=== PATIENT | female | born 1945 | race Caucasian/White ===

== ENCOUNTER 2017-10-11 15:23 | Emergency (ER) | payer MEDICARE, MEDICAID, SELFPAY ==
[2017-10-11 15:25] VITALS: BP 171/81; PULSE 91; RESP 24; TEMP 37.1; O2SAT 95; BMI 43.4
--- NOTE | 2017-10-11 15:47 | CT_ITS ---
STUDY: CT ABDOMEN AND PELVIS WITHOUT CONTRAST REASON FOR EXAM: Female, 72 years old. Abdominal pain and diarrhea, history of lymphoma RADIATION DOSAGE (If Supplied By Facility): CTDIvol = ( 23.34 ) mGy, DLP = ( 1102.01 ) mGycm TECHNIQUE: Transaxial images were obtained from the dome of the diaphragm to the symphysis pubis without oral contrast, and without intravenous contrast. Sagittal and coronal images were reconstructed. Individualized dose optimization techniques were used for this CT. COMPARISON: Prior study of October 28, 2014 FINDINGS: The study is technically limited, being performed without oral and intravenous contrast. The visualized lung bases are unremarkable. The heart size is within normal limits. There is a trace pericardial effusion. There is mild thyromegaly. Normal gallbladder and extrahepatic biliary system. There is mild splenomegaly. Normal pancreas. Normal bilateral adrenal glands. Normal right kidney. Normal left kidney. Normal visualized stomach. Normal small intestine. There is mild colonic diverticulosis with no evidence of associated diverticulitis. The appendix is visualized and appears normal. There are calcified plaques of the abdominal aorta. Normal inferior vena cava. There are scattered shoddy retroperitoneal nodes. Normal urinary bladder. The uterus and adnexal structures are unremarkable. There is again demonstrated a thick-walled fat density structure of the anterior right abdominal wall measuring approximately 9.0 x 2.6 x 2.7 cm. Again, this may represent postsurgical change or lipoma. It is stable in the interval. There is a small fat-containing umbilical hernia. There are diffuse degenerative changes of the visualized thoracolumbar spine. CT/Abdomen/Pelvis without Cont IMPRESSION: 1. Trace pericardial effusion. 2. Mild hepatosplenomegaly, similar to the previous study. 3. Scattered shotty retroperitoneal adenopathy, also similar to the previous study. 4. Mild colonic diverticulosis with no evidence of associated diverticulitis. 5. There is again demonstrated a thick wall fat density structure of the anterior right abdominal wall measuring approximately 9.0 x 2.6 x 2.7 cm. This appears similar to the previous study, and again may represent postsurgical change or lipoma. 6. Small fat-containing umbilical hernia. Electronically Signed: Nghia Heard MD at 17:58 EDT , Service support ,
--- NOTE | 2017-10-11 16:09 | ED.VISSUMM ---
- ER Visit Summary Date of Service: 10/11/17 Chief Complaint: Abdominal pain History of Present Illness: The patient is a 72 F with upper abdominal pain, nausea, and diarrhea. Symptoms started a month ago and are getting worse. She is having a hard time because of the symptom severity. She feels dehydrated and shaky. She has a history of gastric ulcers. She denies any history of abdominal surgery. Physical Examination: Afebrile and vital signs unremarkable except blood pressure is 171/81. Patient appears in no acute distress. Skin is normal. Heart regular. Lungs clear. Abdomen diffusely tender in the upper hemiabdomen with light touch. No guarding or rebound. No distention. Test Results: Laboratory studies, urinalysis, and CT pending. Emergency Department Course and Treatment: Patient treated with fluids while awaiting results. White count 11.2. No sign of sepsis. Potassium 3.4 and CO2 34. Alk phos 149. Lipase normal. Urinalysis unremarkable. CT abdomen showed a fat-containing umbilical hernia as well as chronic abdominal wall changes which are likely postoperative or lipoma related. She is a trace pericardial effusion, mild stable hepatomegaly, and diverticulosis without diverticulitis. Patient was reevaluated. No further symptoms. No pain. No further diarrhea. She is not having watery stools which would be more consistent with C. difficile. I am not sure what is causing her symptoms. She appears to be stable. I advised her on diet recommendations and on staying hydrated. She will follow up with her doctor. Return for any new or worsening issues. Treatment Plan: As above Disposition: Discharged Impression: 1. Diarrheal illness This note was generated with [employer] software. It may contain incorrect words, spelling, and punctuation that were not noted in review of the chart prior to signing ED Disposition - Plan for ED Patient: Chief Complaint: Abd Pain Referrals: Zabrina Bain MD [Primary Care Provider] -
[2017-10-11] MEDS: 0.9% Normal Saline 1,000 ML 1000 ML IV (16:22)
[2017-10-11 16:44] LABS: ALB/GLOB Ratio 0.9 RATIO (0.9-2.4); AST(SGOT) 20 U/L (15-37); Alanine Aminotransfer ALT/SGPT 23 U/L (13-56); Albumin, Serum 3.5 g/dL (3.2-5.0); Alkaline Phosphatase 149 U/L (45-117); Anion Gap 5 (5-15); BUN 11 mg/dL (7-18); Chloride 104 mmol/L (98-107); Creatinine, Serum 0.52 mg/dL (0.55-1.02); EST Glomerular Filtration Rate 122 mL/min (>60); Est Glom Filt Rate - Afr Amer 148 mL/min (>60); Estimated Creatinine Clearance 38.94 ml/min; Globulin 3.9 g/dL (2.2-4.2); Glucose 98 mg/dL (74-106); Lipase 149 U/L (73-393); Potassium 3.4 mmol/L (3.5-5.1); Protein, Total 7.4 g/dL (6.4-8.2); Sodium Level 143 mmol/L (136-145)
[2017-10-11 16:46] LABS: Absolute Lymphocyte Count 1.73 X10^3/ul (0.83-4.51); Absolute Neutrophil Count 8.7 X10^3/uL (2.0-7.7); Basophil# 0.02 X10^3/uL; Basophil% 0.2 % (0-1); Eosinophil# 0.14 X10^3/uL; Eosinophils% 1.3 % (0-5); Hematocrit 43.4 % (37-47); Lymphocyte # 1.73 X10^3/ul (4.0); Lymphocyte % 15.5 % (19-41); Mean Corp Hgb Conc 32.3 g/gl (32-36); Mean Corpuscular Hgb 28.7 pg (27.0-32.0); Mean Corpuscular Volume 89.1 fL (81-99); Monocyte# 0.52 X10^3/uL; Monocyte% 4.7 % (0-10); Neutrophil # 8.72 X10^3/uL (2.7-7.7); Neutrophil % 78.1 % (47-70); Platelet Count 219 K/mm3 (150-450); RBC Distribution Width CV 17.1 % (11.6-14.6); RBC Distribution Width SD 55.7 fl (35.1-43.9); Red Blood Count 4.87 M/mm3 (4.2-5.4); White Blood Count 11.2 K/mm3 (4.4-11.0)
[2017-10-11 16:47] LABS: POSITIVE COUNT NO; POSITIVE DIFFERENTIAL NO; POSITIVE MORPHOLOGY NO
[2017-10-11 17:56] LABS: Red Blood Cells-Urine 0 SEEN /hpf (0-5)
[2017-10-11 18:02] LABS: Color, Urine Yellow (Yellow); Glucose, Dipstick Normal (Normal); Ketone-Dipstick Negative (Negative); Leukocyte Esterase-Dipstick 25 /ul (Negative); Nitrite-Dipstick Negative (Negative); Occult Blood-Urine 25 /ul (Negative); Protein-Dipstick 100 mg/dl (Negative); Urine Bilirubin Dipstick Negative (Negative); Urine Clarity Clear (Clear); Urine Urobilinogen Normal (Normal)
[2017-10-11 18:16] LABS: Bacteria 1+ /hpf (None Seen); Mucous, Urine 1+ /hpf (<or=2+); Squamous Epithelial Cells - UA 0-5 SEEN /hpf (5-10); White Blood Cells 0-5 SEEN /hpf (0-5)
[2017-10-11 19:14] VITALS: BP 149/89; PULSE 83; RESP 20; O2SAT 95
--- NOTE | 2017-10-11 19:37 | ED.DEP ---
ED Disposition - Plan for ED Patient: Chief Complaint: Abd Pain Instructions: Treating Diarrhea Referrals: Zabrina Bain MD [Primary Care Provider] -
[2017-10-11 19:56] VITALS: BP 156/75; PULSE 82; RESP 15; O2SAT 96
== END 2017-10-11 19:57 | disposition home or self-care (01) ==
PROVIDERS: Emergency Provider Emergency Medicine; Family Provider Internal Medicine; PCP Internal Medicine
DX: R19.7 Diarrhea, unspecified (principal); I11.0 Hypertensive heart disease with heart failure; I50.9 Heart failure, unspecified; E11.9 Type 2 diabetes mellitus without complications; K21.9 Gastro-esophageal reflux disease without esophagitis; E03.9 Hypothyroidism, unspecified; J30.9 Allergic rhinitis, unspecified; Z79.4 Long term (current) use of insulin; Z79.899 Other long term (current) drug therapy
CPT/HCPCS: 36591; 74176; 80053; 81001; 83690; 85025; 96360; 96361; 99282; J7030; A4216

== ENCOUNTER 2017-11-18 15:37 | Observation (INO) | payer MEDICARE, MEDICAID, SELFPAY ==
[2017-11-18] VITALS (7 sets, daily range): BP systolic 148–167; BP diastolic 71–80; PULSE 69–78; RESP 12–20; TEMP 36.2–36.8; O2SAT 94–100; BMI 42.7; BMI 43.0; BMI 43.1
--- NOTE | 2017-11-18 16:43 | CT_ITS ---
STUDY: CT ABDOMEN AND PELVIS WITHOUT CONTRAST REASON FOR EXAM: Female, 72 years old. Diarrhea. Abdominal pain. History of lymphoma. RADIATION DOSAGE (If Supplied By Facility): CTDIvol = ( 32.95 ) mGy, DLP = ( 1539.22 ) mGycm TECHNIQUE: Transaxial images were obtained from the dome of the diaphragm to the symphysis pubis without oral contrast, and without intravenous contrast. Sagittal and coronal images were reconstructed. Individualized dose optimization techniques were used for this CT. COMPARISON: 10/11/2017. FINDINGS: There are chronic interstitial fibrotic changes of the lung bases. The visualized portions of the heart are within normal limits. There is decreased attenuation of the liver consistent with steatosis. Stable hepatomegaly. Normal gallbladder and extrahepatic biliary system. There is moderate splenomegaly. Normal pancreas. Normal right adrenal gland. Stable mild diffuse enlargement of the left adrenal gland. Normal right kidney. Normal left kidney. No definite renal or ureteral stones are seen. There is no hydronephrosis on either side. Evaluation of the GI tract is limited by absence of oral contrast. Cannot exclude stomach wall thickening. No dilated loops of bowel or evidence for obstruction. Cannot exclude segmental thickening of the ma of the small or large bowel. Cannot exclude enteritis or colitis. Moderate diffuse fecal retention. Diverticulosis without definite diverticulitis. Appendix within normal limits. Normal abdominal aorta. Normal inferior vena cava. There is borderline retroperitoneal lymphadenopathy with enlarged nodes no greater than 10mm in the short axis diameter. Normal urinary bladder. There is atrophy of the uterus. Stable probable lipoma of the right anterior abdominal wall. There are diffuse degenerative changes of the visualized lumbar spine. CT/Abdomen/Pelvis without Cont IMPRESSION: No gross change or definite acute abnormality. Note that evaluation of GI tract is limited without the administration of oral contrast. Electronically Signed: Mason Beyer MD at 18:27 EDT , Service support ,
[2017-11-18 17:52] LABS: Absolute Lymphocyte Count 1.59 X10^3/ul (0.83-4.51); Absolute Neutrophil Count 8.2 X10^3/uL (2.0-7.7); Basophil# 0.02 X10^3/uL; Basophil% 0.2 % (0-1); Eosinophil# 0.12 X10^3/uL; Eosinophils% 1.1 % (0-5); Hematocrit 40.7 % (37-47); Hemoglobin 13.2 g/dl (12.0-15.0); Lymphocyte # 1.59 X10^3/ul (4.0); Lymphocyte % 15.1 % (19-41); Mean Corp Hgb Conc 32.4 g/gl (32-36); Mean Corpuscular Hgb 29.9 pg (27.0-32.0); Mean Corpuscular Volume 92.3 fL (81-99); Mean Platelet Vol. 9.9 fl (6.2-12.0); Monocyte# 0.62 X10^3/uL; Monocyte% 5.9 % (0-10); Neutrophil # 8.16 X10^3/uL (2.7-7.7); Neutrophil % 77.4 % (47-70); Platelet Count 222 K/mm3 (150-450); RBC Distribution Width CV 14.9 % (11.6-14.6); RBC Distribution Width SD 50.3 fl (35.1-43.9); Red Blood Count 4.41 M/mm3 (4.2-5.4); White Blood Count 10.5 K/mm3 (4.4-11.0)
[2017-11-18 17:58] LABS: POSITIVE COUNT NO; POSITIVE DIFFERENTIAL NO; POSITIVE MORPHOLOGY NO
[2017-11-18 18:26] LABS: Lactic Acid 0.6 mmol/L (0.4-2.0)
[2017-11-18] MEDS: 0.9% Normal Saline 1,000 ML 125 ML IV (18:33)
[2017-11-18 18:35] LABS: AST(SGOT) 24 U/L (15-37); Alanine Aminotransfer ALT/SGPT 26 U/L (13-56); Albumin, Serum 3.6 g/dL (3.2-5.0); Alkaline Phosphatase 144 U/L (45-117); Anion Gap 11 (5-15); BUN 6 mg/dL (7-18); BUN/Creat Ratio 12.6 RATIO (10-20); Chloride 101 mmol/L (98-107); Creatinine, Serum 0.48 mg/dL (0.55-1.02); EST Glomerular Filtration Rate 136 mL/min (>60); Est Glom Filt Rate - Afr Amer 165 mL/min (>60); Estimated Creatinine Clearance 38.94 ml/min; Globulin 3.5 g/dL (2.2-4.2); Glucose 92 mg/dL (74-106); Lipase 131 U/L (73-393); Potassium 3.2 mmol/L (3.5-5.1); Protein, Total 7.1 g/dL (6.4-8.2); Sodium Level 146 mmol/L (136-145)
--- NOTE | 2017-11-18 19:51 | ED.VISSUMM ---
- ER Visit Summary Date of Service: 11/18/17 Chief Complaint: [Diarrhea] History of Present Illness: The patient is a 72 F [presents the emergency department complaint of diarrhea for the last 2 months or so but has significantly worsened over the last 2 weeks. Patient states that she had 2 episodes yesterday but none today. Patient denies blood in her stool. She denies fever. Patient states she is chronically on antibiotics on erythromycin for her history of COPD. Patient is on home O2. Patient states she has lost 8 pounds in the last 2 weeks. Patient is afraid to eat. Patient generally feeling weak. Patient also complains of some pain to the left lower quadrant that she has had off and on for months. Patient saw nurse practitioner for her primary care physician in the office today who ordered stool sample for cultures however patient was unable to produce a sample.] Physical Examination: [HEENT-PERRLA, EOMI. Cranial nerves II through XII grossly intact. TMs clear. Mucous membranes slightly dry.. No adenopathy. Cardiovascular-regular rate and rhythm without murmur or ectopy Lungs-clear to auscultation, chest wall stable without crepitus or subcu emphysema Abdomen-normoactive bowel sounds, soft. Patient has some tenderness over left lower quadrant. There is no rebound, rigidity, or perineal signs. Extremities-intact ?4, normal range of motion, normal pulses, atraumatic] Test Results: [CBC with differential obtained showed a white count of 10.5, hemoglobin 13, hematocrit 41, platelets 222. Chemistries unremarkable. BUN was 6 and creatinine 0.48. Lactate was normal at 0.6. LFTs were normal. Lipase was 131. CT scan of the abdomen pelvis showed nothing acute. Patient unable to give a stool sample while in the emergency department. I did order stool for culture as well as C. difficile and enteric pathogens.] Emergency Department Course and Treatment: [Patient was given normal saline] Treatment Plan: [Admit] Disposition: [Admit] Impression: [Generalized weakness Diarrhea Abdominal pain] This note was generated with [employer] dictation software. It may contain incorrect words, spelling, and punctuation that were not noted in review of the chart prior to signing ED Disposition - Plan for ED Patient: Chief Complaint: Diarrhea Referrals: Zabrina Bain MD [Primary Care Provider] -
--- NOTE | 2017-11-18 19:53 | PCM.HP.STD ---
Problem List (1) Gastroenteritis Status: Acute (2) IBS (irritable bowel syndrome) Status: Chronic Qualifiers: Irritable bowel syndrome type: with diarrhea Qualified Code(s): K58.0 - Irritable bowel syndrome with diarrhea (3) Morbid obesity Status: Chronic (4) Nonrheumatic aortic valve stenosis Status: Chronic (5) Nonrheumatic mitral valve insufficiency Status: Chronic (6) Heart failure Status: Chronic Qualifiers: Heart failure type: unspecified Heart failure chronicity: chronic Qualified Code(s): I50.9 - Heart failure, unspecified (7) Non Hodgkin's lymphoma Status: Chronic Qualifiers: Non-Hodgkin lymphoma type: unspecified type Lymphoma site: unspecified region Qualified Code(s): C85.90 - Non-Hodgkin lymphoma, unspecified, unspecified site (8) Anxiety Status: Chronic (9) Depression Status: Chronic Qualifiers: Depression Type: unspecified Qualified Code(s): F32.9 - Major depressive disorder, single episode, unspecified (10) Hypertension Status: Chronic Qualifiers: Hypertension type: essential hypertension Qualified Code(s): I10 - Essential (primary) hypertension (11) Hyperlipidemia Status: Chronic Qualifiers: Hyperlipidemia type: pure hypercholesterolemia Qualified Code(s): E78.00 - Pure hypercholesterolemia, unspecified; E78.0 - Pure hypercholesterolemia (12) Chronic respiratory failure Status: Chronic Qualifiers: Respiratory failure complication: hypoxia Qualified Code(s): J96.11 - Chronic respiratory failure with hypoxia Comment: copd 3 liters continuous (13) Hypothyroidism Status: Chronic Qualifiers: Hypothyroidism type: unspecified Qualified Code(s): E03.9 - Hypothyroidism, unspecified (14) GERD (gastroesophageal reflux disease) Status: Chronic Qualifiers: Esophagitis presence: esophagitis presence not specified Qualified Code(s): K21.9 - Gastro-esophageal reflux disease without esophagitis (15) Diabetes mellitus, type II Status: Chronic Qualifiers: 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: with half-way use Diabetes mellitus complication status: with unspecified complications Qualified Code(s): E11.8 - Type 2 diabetes mellitus with unspecified complications; 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 The patient is a 72 y/o F w/ PMHx: COPD (3L NC, q HS BIPAP) w/ Chronic Hypoxic Respiratory Failure, SCOTTY (q HS BiPaP), Diabetes mellitus type II, HTN, HLD, Hypothyroidism, Depression/Anxiety, (ECHO 2008 mild-mod, EF 60%), Sjorgen's Syndrome, Fatty liver w/ elevated LFTs, [place] Lymphoma (Chemo until 10/2011, IVIG q month prior, follows w/ Dr. Alvarado), History of IBS who presents to the [facility] ED on 11/18/17 with history of diarrhea ongoing x 2 months on chronic erythromycin therapy per her pulmonary physician, worse x 2 weeks, worse with any oral intake and secondary to this has had recent poor intake but admits to 8 lb weight drop over the last several weeks and concurrent LLQ pain. She notes 2-6 loose stools daily, although day prior 2 and on day of ED presentation none. She uses a wheelchair chronically and given her difficulties in getting to the restroom she has been more apt to decrease her intake to avoid loose stools. She had c-scope at [facility] 3-5 months prior with unclear results. She notes having seen Dr. David in the past. She notes that she has always had diarrhea w/ her IBS but this presentation over the last several months, specifically the last 2 weeks has been markedly worse than her baseline. She cannot detail any medications she has been on in the past for her IBS. She does status that she currently uses well water. Workup in the ED included T 97.2, heart rate 69, BP initially 167/80--> 40/78, respiratory rate 16, 94% room air, CBC with WBC 10.5, hemoglobin 13.2, platelet 222 with left shift, CMP with sodium 146, potassium 3.2, carbon dioxide 34, BUN/creatinine 6/0.48, total bilirubin 1.10, AST/ALT 24/26, alk phos 144, lipase 131, LA normal, CT abdomen and pelvis without contrast with no gross change or definitive Acute abnormality although limited secondary to no IV or oral contrast. 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) Antihyperlipidemic Nonrheumatic aortic valve stenosis (Chronic) Nonrheumatic mitral valve insufficiency (Chronic) Heart failure (Chronic) Non Hodgkin's lymphoma (Chronic) Anxiety (Chronic) Depression (Chronic) Hypertension (Chronic) Hyperlipidemia (Chronic) Chronic respiratory failure (Chronic) copd 3 liters continuous Hypothyroidism (Chronic) GERD (gastroesophageal reflux disease) (Chronic) Diabetes mellitus, type II (Chronic) Benign essential HTN (Chronic) Sleep apnea (Chronic) Fatty liver disease, nonalcoholic (Chronic) Sjogren's syndrome (Chronic) Diverticulosis (Chronic) Mild aortic stenosis (Chronic) Super obesity (Chronic) bmi 48 Medical History: Medical History (Last Updated 06/24/17 @ 11:40 by [email or web address]) Nonrheumatic aortic valve stenosis (Chronic) I35.0 Nonrheumatic mitral valve insufficiency (Chronic) I34.0 Heart failure (Chronic) I50.9 Hypertension (Chronic) I10 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 Breast pain, left N64.4 CHF (congestive heart failure) I50.9 Chronic obstructive pulmonary disease J44.9 Dyspnea on exertion R06.09 Neck pain M54.2 SCOTTY (obstructive sleep apnea) G47.33 Pseudomonas aeruginosa infection A49.8 Allergies adhesive Allergy (Verified 10/11/17 15:26) Itching adhesive tape Allergy (Verified 10/11/17 15:26) Rash amoxicillin trihydrate [From Augmentin] Allergy (Verified 10/11/17 15:26) Hives latex Allergy (Verified 10/11/17 15:26) Rash Latex, Natural Rubber Allergy (Verified 10/11/17 15:26) Rash metronidazole [From Flagyl] Allergy (Verified 10/11/17 15:26) Hives Metronidazole HCl [From Flagyl] Allergy (Verified 10/11/17 15:26) Hives Penicillins [PCN] Allergy (Verified 10/11/17 15:26) Other potassium clavulanate [From Augmentin] Allergy (Verified 10/11/17 15:26) Hives sulfamethoxazole [From Bactrim] Allergy (Verified 10/11/17 15:26) Hives hives trimethoprim [From Bactrim] Allergy (Verified 10/11/17 15:26) Hives hives diphenhydramine HCl [From Benadryl] Adverse Reaction (Verified 10/11/17 15:26) i could crawl to the ceiling i could crawl the ceiling omeprazole Adverse Reaction (Verified 10/11/17 15:) Nausea promethazine HCl [From Phenergan] Adverse Reaction (Verified 10/11/17 15:26) Nausea antihistamine Allergy (Uncoded 10/11/17 15:) i could crawl to the ceiling crawl the ceiling cat scan dye Allergy (Uncoded 10/11/17 15:26) Anaphylaxis Home Medications: Ambulatory Orders Medication Instructions Recorded Albuterol Inhaler [Ventolin Hfa] 2 puff INHALATION Q6H PRN PRN 06/29/14 Levothyroxine [Synthroid] 25 mcg PO DAILY 06/29/14 Montelukast [Singulair] 10 mg PO QHS 06/29/14 Oxygen, Home [Home Oxygen] 3 lpm NASAL CONT 06/29/14 Pantoprazole Sodium [Protonix] 40 mg PO BID 06/29/14 Potassium Chloride [K-Dur] 10 meq PO 4X/DAY 06/29/14 Sertraline HCl [Zoloft] 200 mg PO QHS 06/29/14 Umeclidinium Brm/Vilanterol Tr 1 each IH DAILY 06/29/14 [Anoro Ellipta 62.5-25 Mcg INH] Albuterol Aerosols [Ventolin 2.5 mg INHALATION Q4H PRN PRN 08/20/14 Aerosols] Insulin Aspart [Novolog Flexpen] See Protocol SC BID 01/26/15 Insulin Detemir [Levemir FlexPen] 15 units SC BID 01/26/15 Atorvastatin Calcium [Lipitor] 20 mg PO QHS 09/18/15 Fluticasone 0.05% [Flonase Nasal 2 spray NASAL QHS 09/18/15 [place]] Liraglutide [Victoza 2-Yan] 1.2 mg SQ DAILY 09/18/15 Pregabalin [Lyrica] 50 mg PO TID 09/18/15 Guaifenesin [Mucinex] 1,200 mg PO BID #20 tablet 10/20/15 traZODone [Desyrel] 150 mg PO QHS 11/26/16 Azithromycin [Zithromax] 250 mg PO DAILY 12/03/16 Ketoconazole [Nizoral] 120 ml TP DAILY 12/03/16 Loperamide [Imodium] 2 mg PO BID PRN PRN 12/03/16 Nystatin Powder [Mycostatin Powder] 1 applic TOPICAL Q6H PRN 12/03/16 Acetaminophen [Tylenol Extra 1,000 mg PO BID 10/11/17 Strength] Furosemide [Lasix] 10 mg PO BID 10/11/17 Hydrocodone/Acetaminophen 1 tab PO BID 10/11/17 [Hydrocodone-Acetamin 5-325 mg] Lisinopril [Zestril] 40 mg PO DAILY 10/11/17 Metoprolol Succinate [Toprol Xl] 50 mg PO BID 10/11/17 Multivitamin [Multiple Vitamins] 1 tablet PO DAILY 10/11/17 Surgical History: Surgical History (Last Updated 06/20/17 @ 14:50 by Thania Castro) H/O hemorrhoidectomy (Resolved) Z98.890 History of tonsillectomy (Resolved) Z90.89 S/P wrist surgery (Resolved) Z98.890 right Surgical History: - - Right breast hematoma removal, Left breast lumps removal, Right chest port, R Wrist surery, T+A, hemorrhoidectomy. 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 PROCUREMENT History: No pertinent MANAGER PROCUREMENT history Lives: Alone Smoking Status: Never smoker Tobacco Use: Non-smoker Alcohol: None Drugs: None - *Family History Offspring Family History: Family History (Last Updated 06/20/17 @ 14:52 by Thania Castro) Brother CAD (coronary artery disease) CVA (cerebral vascular accident) Brother Sudden cardiac Brother CAD (coronary artery disease) Mother Heart disease Father Brain aneurysm History Items: Cancer, Diabetes, Hypertension Maternal Family History: Family History (Last Updated 06/20/17 @ 14:52 by Thania Castro) Brother CAD (coronary artery disease) CVA (cerebral vascular accident) Brother Sudden cardiac Brother CAD (coronary artery disease) Mother Heart disease Father Brain aneurysm History Items: - - There is a positive family HTN and and DM Sibling Family History: Family History (Last Updated 06/20/17 @ 14:52 by Thania Castro) Brother CAD (coronary artery disease) CVA (cerebral vascular accident) Brother Sudden cardiac Brother CAD (coronary artery disease) Mother Heart disease Father Brain aneurysm History Items: - - ALL in one child and bone cancer in another Review of Systems Constitutional: Reports: Anorexia, Malaise, Weakness, Fatigue. Denies: Chills, Fever, Weight Change HEENT: Denies: Head Aches, Sinus Congestion, Sinus Drainage Cardiovascular: Denies: Chest Pain, Edema, Heaviness, Light Headedness, Palpitations, Syncope Respiratory: Reports: Shortness of breath at rest, Shortness of breath upon exertion. Denies: Cough, Sputum production, Wheezing Gastrointestinal: Reports: Abdominal Pain, Diarrhea. Denies: Nausea, Vomiting Genitourinary: Denies: Dysuria Musculoskeletal: Reports: Back Pain, Joint Pain, Leg Pain. Denies: Joint Tenderness Skin: Denies: Rash, Wounds Neurological: Denies: Numbness, Tingling, Focal weakness Psychiatric: Reports: Anxiety, Depression. Denies: Homicidal Ideations, Suicidal Ideations Hematologic/ Lymphatic: Reports: Anemia. Denies: Easy Bruising, Easy Bleeding VTE Information - Inpt Only VTE Present on Admission: No VTE Mechan Device Prophylaxis: SCD's VTE Pharm Prophylaxis ordered?: Yes Patient Problems: Active and Suspected Problems (Last Updated 06/24/17 @ 11:40 by Meenakshi Jose) Gastroenteritis (Acute) Subjective: Seated upright in ED bed, fatigued appearance, no acute distress. Objective: Physical Examination: General: awake, alert, oriented x 3 and cooperative, seated upright in the ED bed in no apparent distress, fatigued appearance. Skin: normal color, turgor, no icterus, cyanosis. HEENT: AT/NC, EOMI, PERRLA, mildly dry MM, no carotid bruits or JVD noted. Lungs: Diminished breath sounds diffusely, greater bases, mild effort, no rales, ronchi or wheezing. Heart: Regular rate and rhythm; no gallop, rub audible. Abdomen: soft, morbidly obese, mild TTP LUQ to deep palpation, difficult to assess distention secondary to habitus, hypoactive BS, difficult to assess HSm secondary to morbidly obese habitus. Extremities: no cyanosis, clubbing, BL LE ankle non-pitting. Neurological: patient awake, alert, oriented x 3; cognitive function intact; pupils equally reactive to light and accomodation; cranial nerves II-XII grossly normal, moving all 4 extremities but chronic BL LE debility, uses wheelchair chronically, strength accordingly severe globally decreased. Psychiatric: affect appears fatigued, flat, no acute evidence of depressive or anxiety feelings. - Physical Exam Vital Signs Temp Pulse Resp BP Pulse Ox 97.2 F L 75 14 155/74 H 98 11/18/17 15:39 11/18/17 18:01 11/18/17 18:01 11/18/17 18:01 11/18/17 18:01 Oxygen Delivery Method Room Air Weight: 226 lb Body Mass Index (BMI) 42.7 Finger Stick Blood Glucose 204 Laboratory Tests Past 24 Hrs 11/18/17 11/18/17 11/18/17 17:37 17:37 17:37 WBC 10.5 RBC 4.41 Hgb 13.2 Hct 40.7 MCV 92.3 MCH 29.9 MCHC 32.4 RDW 14.9 H RDW Differential 50.3 H Plt Count 222 MPV 9.9 Immature Gran % (Auto) 0.300 Neut % (Auto) 77.4 H Lymph % (Auto) 15.1 L [place] % (Auto) 5.9 Eos % (Auto) 1.1 Baso % (Auto) 0.2 Absolute Neuts (auto) 8.2 H Absolute Lymphs (auto) 1.59 Total Counted Not Reportable Sodium 146 H Potassium 3.2 L Chloride 101 Carbon Dioxide 34.0 H Anion Gap 11 BUN 6 L Creatinine 0.48 L Estim Creat Clear Calc 38.94 Est GFR (MDRD) Af Amer 165 Est GFR (MDRD) Non-Af 136 BUN/Creatinine Ratio 12.6 Glucose 92 Lactic Acid 0.6 Calcium 9.0 Total Bilirubin 1.10 H AST 24 ALT 26 Alkaline Phosphatase 144 H Total Protein 7.1 Albumin 3.6 Globulin 3.5 Albumin/Globulin Ratio 1.0 Lipase 131 Assessment/Plan All Active Problems (Last Updated 06/24/17 @ 11:40 by Meenakshi Jose) Gastroenteritis (Acute) H/O hemorrhoidectomy (Resolved) History of tonsillectomy (Resolved) S/P wrist surgery (Resolved) Chest pain (Acute) Cervicalgia (Resolved) Hyperglycemia (Resolved) Recent urinary tract infection (Resolved) The patient is a 72 y/o F w/ PMHx: COPD (3L NC, q HS BIPAP) w/ Chronic Hypoxic Respiratory Failure, SCOTTY (q HS BiPaP), Diabetes mellitus type II, HTN, HLD, Hypothyroidism, Depression/Anxiety, (ECHO 2008 mild-mod, EF 60%), Sjorgen's Syndrome, Fatty liver w/ elevated LFTs, [place] Lymphoma (Chemo until 10/2011, IVIG q month prior, follows w/ Dr. Alvarado), History of IBS who presents to the [facility] ED on 11/18/17 with history of diarrhea ongoing x 2 months on chronic erythromycin therapy per her pulmonary physician, worse x 2 weeks, worse with any oral intake and secondary to this has had recent poor intake but admits to 8 lb weight drop over the last several weeks and concurrent LLQ pain. (1) Loose stools, Poor Oral Intake, ? Weight loss secondary to Poorly Controlled IBS versus Ongoing Chronic Oral Antibiotic usage versus Acute Gastroenteritis: Workup in the ED included T 97.2, heart rate 69, BP initially 167/80--> 40/78, respiratory rate 16, 94% room air, CBC with WBC 10.5, hemoglobin 13.2, platelet 222 with left shift, CMP with sodium 146, potassium 3.2, carbon dioxide 34, BUN/creatinine 6/0.48, total bilirubin 1.10, AST/ALT 24/26, alk phos 144, lipase 131, LA normal, CT abdomen and pelvis without contrast with no gross change or definitive Acute abnormality although limited secondary to no IV or oral contrast. Will admit to MS, will continue hydration, encourage at least clears and ADAT, if recurrent loose stools will obtain c diff, stool cx, O+P with repeat AM CBC. Will not start antibiotics at this time given unclear source pending stool studies as may be viral gastroenteritis. Anti-emetics, pain regimen PRN. Will hold oral outpatient erythromycin. If stool cultures unremarkable will need to consider discharge with referral to gastroenterology and follow-up for patient IBS. Requested records from [facility] most recent colonoscopy. (2) Hypokalemia: Admission K+ 3.2, supplementation given in the ED, repeat level in AM. (3) Chronic COPD w/ Chronic Hypoxic Respiratory Failure (3L NC, q HS BIPAP), maintain on home 3L NC regimen, continue ATC duonebs, PRN albuterol, HOB, IS parameters. Hold chronic oral abx therapy given acute presentation history. (4) CHF Unclear Type, Valvular Heart Disease: Cautiously monitor given IVF need, most recent ECHO 05/31/2014 w/ normal LV size, moderate concentric LVH, LV systolic function normal, EF 60%, mild MV insufficiency, mild TV insufficiency, PAS P 51 mmHg consistent with moderate pulmonary hypertension, mild aortic stenosis. Maintain on aspirin, statin, Lasix, lisinopril metoprolol. (5) History of Fatty Liver: LFTs not marked, alk phos mildly increased. Hold PPI until assure c-diff negative. (6) Hypertension: Will continue home regimen Lisinopril, Lasix, Norvasc, Toprol, Hydralazine PRN. (7) Hyperlipidemia: Will continue home statin regimen. (8) Hypothyroidism: Will continue home Synthroid regimen. (9) [place] Lymphoma: Chemo until 10/2011, IVIG q month prior history, follows w/ Dr. Alvarado. (10) Diabetes mellitus: Will hold oral regimen, continue home insulin regimen with hold or alterations as needed pending BS monitoring given patient reported poor intake, accu checks w/ ISS. ADA diet once diet advanced from clears. (11) SCOTTY: BIPAP q HS. (12) Depression-Anxiety: Continue home Sertraline, BZD regimen. (13) Morbid Obesity: Weight loss and lifestyle changes encouraged, nutrition consulted. (14) Prophylaxis: SCDs, lovenox. (15) CODE status: Patient notes she does have living will in place [facility] daughter. Discussed CODE status at length including difference between FULL code, DNR-CCA and DNR-CC status. Following discussions about the differences in these status, requested Full Code status. She notes she still has quality of life despite her notable co-morbidities and thus will continue Full Code status until decreased quality. Advanced Care Planning Face to Face Time: 17 minutes. Code Visit OBSV E&M: 51417 Initial observation care L3 Procedures: 06039 Advncd Care Plan 30 Min
--- NOTE | 2017-11-18 19:58 | HP.PCM_ITS ---
Problem List (1) Gastroenteritis Status: Acute (2) IBS (irritable bowel syndrome) Status: Chronic Qualifiers: Irritable bowel syndrome type: with diarrhea Qualified Code(s): K58.0 - Irritable bowel syndrome with diarrhea (3) Morbid obesity Status: Chronic (4) Nonrheumatic aortic valve stenosis Status: Chronic (5) Nonrheumatic mitral valve insufficiency Status: Chronic (6) Heart failure Status: Chronic Qualifiers: Heart failure type: unspecified Heart failure chronicity: chronic Qualified Code(s): I50.9 - Heart failure, unspecified (7) Non Hodgkin's lymphoma Status: Chronic Qualifiers: Non-Hodgkin lymphoma type: unspecified type Lymphoma site: unspecified region Qualified Code(s): C85.90 - Non-Hodgkin lymphoma, unspecified, unspecified site (8) Anxiety Status: Chronic (9) Depression Status: Chronic Qualifiers: Depression Type: unspecified Qualified Code(s): F32.9 - Major depressive disorder, single episode, unspecified (10) Hypertension Status: Chronic Qualifiers: Hypertension type: essential hypertension Qualified Code(s): I10 - Essential (primary) hypertension (11) Hyperlipidemia Status: Chronic Qualifiers: Hyperlipidemia type: pure hypercholesterolemia Qualified Code(s): E78.00 - Pure hypercholesterolemia, unspecified; E78.0 - Pure hypercholesterolemia (12) Chronic respiratory failure Status: Chronic Qualifiers: Respiratory failure complication: hypoxia Qualified Code(s): J96.11 - Chronic respiratory failure with hypoxia Comment: copd 3 liters continuous (13) Hypothyroidism Status: Chronic Qualifiers: Hypothyroidism type: unspecified Qualified Code(s): E03.9 - Hypothyroidism , unspecified (14) GERD (gastroesophageal reflux disease) Status: Chronic Qualifiers: Esophagitis presence: esophagitis presence not specified Qualified Code(s) : K21.9 - Gastro-esophageal reflux disease without esophagitis (15) Diabetes mellitus, type II Status: Chronic Qualifiers: Diabetes mellitus retirement insulin use: with buttermaker helper use Diabetes mellitus complication status: with unspecified complications Qualified Code(s) : E11.8 - Type 2 diabetes mellitus with unspecified complications; Z79.4 - snf (current) use of insulin (16) Sleep apnea Status: Chronic Qualifiers: Sleep apnea type: unspecified type Qualified Code(s): G47.30 - Sleep apnea , unspecified (17) Fatty liver disease, nonalcoholic Status: Chronic (18) Sjogren's syndrome Status: Chronic Qualifiers: Sjogren's organ involvement: unspecified organ involvement Qualified Code(s ): M35.00 - Sicca syndrome, unspecified (19) Chronic obstructive pulmonary disease Status: Chronic Qualifiers: Emphysema type: unspecified History of Present Illness Date of Admission: 11/18/17 Chief Complaint: Diarrhea, fatigue, poor intake. The patient is a 72 y/o F w/ PMHx: COPD (3L NC, q HS BIPAP) w/ Chronic Hypoxic Respiratory Failure, SCOTTY (q HS BiPaP), Diabetes mellitus type II, HTN, HLD, Hypothyroidism, Depression/Anxiety, (ECHO 2008 mild-mod, EF 60%), Sjorgen's Syndrome, Fatty liver w/ elevated LFTs, [place] Lymphoma (Chemo until 10/2011, IVIG q month prior, follows w/ Dr. Alvarado), History of IBS who presents to the [facility] ED on with history of diarrhea ongoing x 2 months on chronic erythromycin therapy per her pulmonary physician, worse x 2 weeks, worse with any oral intake and secondary to this has had recent poor intake but admits to 8 lb weight drop over the last several weeks and concurrent LLQ pain. She notes 2-6 loose stools daily, although day prior 2 and on day of ED presentation none. She uses a wheelchair chronically and given her difficulties in getting to the restroom she has been more apt to decrease her intake to avoid loose stools. She had c-scope at [place] 3-5 months prior with unclear results. She notes having seen Dr. David in the past. She notes that she has always had diarrhea w/ her IBS but this presentation over the last several months, specifically the last 2 weeks has been markedly worse than her baseline. She cannot detail any medications she has been on in the past for her IBS. She does status that she currently uses well water. Workup in the ED included T 97.2, heart rate 69, BP initially 167/80--> 40/78, respiratory rate 16, 94% room air, CBC with WBC 10.5 , hemoglobin 13.2, platelet 222 with left shift, CMP with sodium 146, potassium 3.2, carbon dioxide 34, BUN/creatinine 6/0.48, total bilirubin 1.10, AST/ALT 24/ 26, alk phos 144, lipase 131, LA normal, CT abdomen and pelvis without contrast with no gross change or definitive Acute abnormality although limited secondary to no IV or oral contrast. Past Medical History Past Medical History (Chronic Problems): Chronic Problems (Last Updated 06/24/17 @ 11:40 by Synchris) Morbid obesity (Chronic) Chronic obstructive pulmonary disease (Chronic) IBS (irritable bowel syndrome) (Chronic) snf use of drug (Chronic) Antihyperlipidemic Nonrheumatic aortic valve stenosis (Chronic) Nonrheumatic mitral valve insufficiency (Chronic) Heart failure (Chronic) Non Hodgkin's lymphoma (Chronic) Anxiety (Chronic) Depression (Chronic) Hypertension (Chronic) Hyperlipidemia (Chronic) Chronic respiratory failure (Chronic) copd 3 liters continuous Hypothyroidism (Chronic) GERD (gastroesophageal reflux disease) (Chronic) Diabetes mellitus, type II (Chronic) Benign essential HTN (Chronic) Sleep apnea (Chronic) Fatty liver disease, nonalcoholic (Chronic) Sjogren's syndrome (Chronic) Diverticulosis (Chronic) Mild aortic stenosis (Chronic) Super obesity (Chronic) bmi 48 Medical History: Medical History (Last Updated 06/24/17 @ 11:40 by Synchris) Nonrheumatic aortic valve stenosis (Chronic) I35.0 Nonrheumatic mitral valve insufficiency (Chronic) I34.0 Heart failure (Chronic) I50.9 Hypertension (Chronic) I10 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 Breast pain, left N64.4 CHF (congestive heart failure) I50.9 Chronic obstructive pulmonary disease J44.9 Dyspnea on exertion R06.09 Neck pain M54.2 SCOTTY (obstructive sleep apnea) G47.33 Pseudomonas aeruginosa infection A49.8 Allergies adhesive Allergy (Verified 10/11/17 15:26) Itching adhesive tape Allergy (Verified 10/11/17 15:26) Rash amoxicillin trihydrate [From Augmentin] Allergy (Verified 10/11/17 15:26) Hives latex Allergy (Verified 10/11/17 15:26) Rash Latex, Natural Rubber Allergy (Verified 10/11/17 15:26) Rash metronidazole [From Flagyl] Allergy (Verified 10/11/17 15:26) Hives Metronidazole HCl [From Flagyl] Allergy (Verified 10/11/17 15:26) Hives Penicillins [PCN] Allergy (Verified 10/11/17 15:26) Other potassium clavulanate [From Augmentin] Allergy (Verified 10/11/17 15:26) Hives sulfamethoxazole [From Bactrim] Allergy (Verified 10/11/17 15:26) Hives hives trimethoprim [From Bactrim] Allergy (Verified 10/11/17 15:26) Hives hives diphenhydramine HCl [From Benadryl] Adverse Reaction (Verified 10/11/17 15:26) i could crawl to the ceiling i could crawl the ceiling omeprazole Adverse Reaction (Verified 10/11/17 15:) Nausea promethazine HCl [From Phenergan] Adverse Reaction (Verified 10/11/17 15:26) Nausea antihistamine Allergy (Uncoded 10/11/17 15:) i could crawl to the ceiling crawl the ceiling cat scan dye Allergy (Uncoded 10/11/17 15:26) Anaphylaxis Home Medications: Ambulatory Orders Medication Instructions Recorded Albuterol Inhaler [Ventolin Hfa] 2 puff INHALATION Q6H PRN PRN 06/29/14 Levothyroxine [Synthroid] 25 mcg PO DAILY 06/29/14 Montelukast [Singulair] 10 mg PO QHS 06/29/14 Oxygen, Home [Home Oxygen] 3 lpm NASAL CONT 06/29/14 Pantoprazole Sodium [Protonix] 40 mg PO BID 06/29/14 Potassium Chloride [K-Dur] 10 meq PO 4X/DAY 06/29/14 Sertraline HCl [Zoloft] 200 mg PO QHS 06/29/14 Umeclidinium Brm/Vilanterol Tr 1 each IH DAILY 06/29/14 [Anoro Ellipta 62.5-25 Mcg INH] Albuterol Aerosols [Ventolin 2.5 mg INHALATION Q4H PRN PRN 08/20/14 Aerosols] Insulin Aspart [Novolog Flexpen] See Protocol SC BID 01/26/15 Insulin Detemir [Levemir FlexPen] 15 units SC BID 01/26/15 Atorvastatin Calcium [Lipitor] 20 mg PO QHS 09/18/15 Fluticasone 0.05% [Flonase Nasal 2 spray NASAL QHS 09/18/15 [place]] Liraglutide [Victoza 2-Yan] 1.2 mg SQ DAILY 09/18/15 Pregabalin [Lyrica] 50 mg PO TID 09/18/15 Guaifenesin [Mucinex] 1,200 mg PO BID #20 tablet 10/20/15 traZODone [Desyrel] 150 mg PO QHS 11/26/16 Azithromycin [Zithromax] 250 mg PO DAILY 12/03/16 Ketoconazole [Nizoral] 120 ml TP DAILY 12/03/16 Loperamide [Imodium] 2 mg PO BID PRN PRN 12/03/16 Nystatin Powder [Mycostatin Powder] 1 applic TOPICAL Q6H PRN 12/03/16 Acetaminophen [Tylenol Extra 1,000 mg PO BID 10/11/17 Strength] Furosemide [Lasix] 10 mg PO BID 10/11/17 Hydrocodone/Acetaminophen 1 tab PO BID 10/11/17 [Hydrocodone-Acetamin 5-325 mg] Lisinopril [Zestril] 40 mg PO DAILY 10/11/17 Metoprolol Succinate [Toprol Xl] 50 mg PO BID 10/11/17 Multivitamin [Multiple Vitamins] 1 tablet PO DAILY 10/11/17 Surgical History: Surgical History (Last Updated 06/20/17 @ 14:50 by Thania Castro) H/O hemorrhoidectomy (Resolved) Z98.890 History of tonsillectomy (Resolved) Z90.89 S/P wrist surgery (Resolved) Z98.890 right Surgical History: - - Right breast hematoma removal, Left breast lumps removal, Right chest port, R Wrist surery, T+A, hemorrhoidectomy. 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: No pertinent HRIS ADMINISTRATOR history Lives: Alone Smoking Status: Never smoker Tobacco Use: Non-smoker Alcohol: None Drugs: None - *Family History Offspring Family History: Family History (Last Updated 06/20/17 @ 14:52 by Thania Castro) Brother CAD (coronary artery disease) CVA (cerebral vascular accident) Brother Sudden cardiac Brother CAD (coronary artery disease) Mother Heart disease Father Brain aneurysm History Items: Cancer, Diabetes, Hypertension Maternal Family History: Family History (Last Updated 06/20/17 @ 14:52 by Thania Castro) Brother CAD (coronary artery disease) CVA (cerebral vascular accident) Brother Sudden cardiac Brother CAD (coronary artery disease) Mother Heart disease Father Brain aneurysm History Items: - - There is a positive family HTN and and DM Sibling Family History: Family History (Last Updated 06/20/17 @ 14:52 by Thania Castro) Brother CAD (coronary artery disease) CVA (cerebral vascular accident) Brother Sudden cardiac Brother CAD (coronary artery disease) Mother Heart disease Father Brain aneurysm History Items: - - ALL in one child and bone cancer in another Review of Systems Constitutional: Reports: Anorexia, Malaise, Weakness, Fatigue. Denies: Chills, Fever, Weight Change HEENT: Denies: Head Aches, Sinus Congestion, Sinus Drainage Cardiovascular: Denies: Chest Pain, Edema, Heaviness, Light Headedness, Palpitations, Syncope Respiratory: Reports: Shortness of breath at rest, Shortness of breath upon exertion. Denies: Cough, Sputum production, Wheezing Gastrointestinal: Reports: Abdominal Pain, Diarrhea. Denies: Nausea, Vomiting Genitourinary: Denies: Dysuria Musculoskeletal: Reports: Back Pain, Joint Pain, Leg Pain. Denies: Joint Tenderness Skin: Denies: Rash, Wounds Neurological: Denies: Numbness, Tingling, Focal weakness Psychiatric: Reports: Anxiety, Depression. Denies: Homicidal Ideations, Suicidal Ideations Hematologic/ Lymphatic: Reports: Anemia. Denies: Easy Bruising, Easy Bleeding VTE Information - Inpt Only VTE Present on Admission: No VTE Mechan Device Prophylaxis: SCD's VTE Pharm Prophylaxis ordered?: Yes Patient Problems: Active and Suspected Problems (Last Updated 06/24/17 @ 11:40 by Meenakshi Jose) Gastroenteritis (Acute) Subjective: Seated upright in ED bed, fatigued appearance, no acute distress. Objective: Physical Examination: General: awake, alert, oriented x 3 and cooperative, seated upright in the ED bed in no apparent distress, fatigued appearance. Skin: normal color, turgor, no icterus, cyanosis. HEENT: AT/NC, EOMI, PERRLA, mildly dry MM, no carotid bruits or JVD noted. Lungs: Diminished breath sounds diffusely, greater bases, mild effort, no rales , ronchi or wheezing. Heart: Regular rate and rhythm; no gallop, rub audible. Abdomen: soft, morbidly obese, mild TTP LUQ to deep palpation, difficult to assess distention secondary to habitus, hypoactive BS, difficult to assess HSm secondary to morbidly obese habitus. Extremities: no cyanosis, clubbing, BL LE ankle non-pitting. Neurological: patient awake, alert, oriented x 3; cognitive function intact; pupils equally reactive to light and accomodation; cranial nerves II-XII grossly normal, moving all 4 extremities but chronic BL LE debility, uses wheelchair chronically, strength accordingly severe globally decreased. Psychiatric: affect appears fatigued, flat, no acute evidence of depressive or anxiety feelings. - Physical Exam Vital Signs Temp Pulse Resp BP Pulse Ox 97.2 F L 75 14 155/74 H 98 11/18/17 15:39 11/18/17 18:01 11/18/17 18:01 11/18/17 18:01 11/18/17 18:01 Oxygen Delivery Method Room Air Weight: 226 lb Body Mass Index (BMI) 42.7 Finger Stick Blood Glucose 204 Laboratory Tests Past 24 Hrs 11/18/17 11/18/17 11/18/17 17:37 17:37 17:37 WBC 10.5 RBC 4.41 Hgb 13.2 Hct 40.7 MCV 92.3 MCH 29.9 MCHC 32.4 RDW 14.9 H RDW Differential 50.3 H Plt Count 222 MPV 9.9 Immature Gran % (Auto) 0.300 Neut % (Auto) 77.4 H Lymph % (Auto) 15.1 L [place] % (Auto) 5.9 Eos % (Auto) 1.1 Baso % (Auto) 0.2 Absolute Neuts (auto) 8.2 H Absolute Lymphs (auto) 1.59 Total Counted Not Reportable Sodium 146 H Potassium 3.2 L Chloride 101 Carbon Dioxide 34.0 H Anion Gap 11 BUN 6 L Creatinine 0.48 L Estim Creat Clear Calc 38.94 Est GFR (MDRD) Af Amer 165 Est GFR (MDRD) Non-Af 136 BUN/Creatinine Ratio 12.6 Glucose 92 Lactic Acid 0.6 Calcium 9.0 Total Bilirubin 1.10 H AST 24 ALT 26 Alkaline Phosphatase 144 H Total Protein 7.1 Albumin 3.6 Globulin 3.5 Albumin/Globulin Ratio 1.0 Lipase 131 Assessment/Plan All Active Problems (Last Updated 06/24/17 @ 11:40 by Meenakshi Jose) Gastroenteritis (Acute) H/O hemorrhoidectomy (Resolved) History of tonsillectomy (Resolved) S/P wrist surgery (Resolved) Chest pain (Acute) Cervicalgia (Resolved) Hyperglycemia (Resolved) Recent urinary tract infection (Resolved) The patient is a 72 y/o F w/ PMHx: COPD (3L NC, q HS BIPAP) w/ Chronic Hypoxic Respiratory Failure, SCOTTY (q HS BiPaP), Diabetes mellitus type II, HTN, HLD, Hypothyroidism, Depression/Anxiety, (ECHO 2008 mild-mod, EF 60%), Sjorgen's Syndrome, Fatty liver w/ elevated LFTs, [place] Lymphoma (Chemo until 10/2011, IVIG q month prior, follows w/ Dr. Alvarado), History of IBS who presents to the [facility] ED on with history of diarrhea ongoing x 2 months on chronic erythromycin therapy per her pulmonary physician, worse x 2 weeks, worse with any oral intake and secondary to this has had recent poor intake but admits to 8 lb weight drop over the last several weeks and concurrent LLQ pain. (1) Loose stools, Poor Oral Intake, ? Weight loss secondary to Poorly Controlled IBS versus Ongoing Chronic Oral Antibiotic usage versus Acute Gastroenteritis: Workup in the ED included T 97.2, heart rate 69, BP initially 167/80--> 40/78, respiratory rate 16, 94% room air, CBC with WBC 10.5, hemoglobin 13.2, platelet 222 with left shift, CMP with sodium 146, potassium 3.2, carbon dioxide 34, BUN/creatinine 6/0.48, total bilirubin 1.10, AST/ALT 24/ 26, alk phos 144, lipase 131, LA normal, CT abdomen and pelvis without contrast with no gross change or definitive Acute abnormality although limited secondary to no IV or oral contrast. Will admit to MS, will continue hydration, encourage at least clears and ADAT, if recurrent loose stools will obtain c diff, stool cx, O+P with repeat AM CBC. Will not start antibiotics at this time given unclear source pending stool studies as may be viral gastroenteritis. Anti-emetics, pain regimen PRN. Will hold oral outpatient erythromycin. If stool cultures unremarkable will need to consider discharge with referral to gastroenterology and follow-up for patient IBS. Requested records from [place] most recent colonoscopy. (2) Hypokalemia: Admission K+ 3.2, supplementation given in the ED, repeat level in AM. (3) Chronic COPD w/ Chronic Hypoxic Respiratory Failure (3L NC, q HS BIPAP), maintain on home 3L NC regimen, continue ATC duonebs, PRN albuterol, HOB, IS parameters. Hold chronic oral abx therapy given acute presentation history. (4) CHF Unclear Type, Valvular Heart Disease: Cautiously monitor given IVF need , most recent ECHO 05/31/2014 w/ normal LV size, moderate concentric LVH, LV systolic function normal, EF 60%, mild MV insufficiency, mild TV insufficiency, PAS P 51 mmHg consistent with moderate pulmonary hypertension, mild aortic stenosis. Maintain on aspirin, statin, Lasix, lisinopril metoprolol. (5) History of Fatty Liver: LFTs not marked, alk phos mildly increased. Hold PPI until assure c-diff negative. (6) Hypertension: Will continue home regimen Lisinopril, Lasix, Norvasc, Toprol , Hydralazine PRN. (7) Hyperlipidemia: Will continue home statin regimen. (8) Hypothyroidism: Will continue home Synthroid regimen. (9) [place] Lymphoma: Chemo until 10/2011, IVIG q month prior history, follows w/ Dr. Alvarado. (10) Diabetes mellitus: Will hold oral regimen, continue home insulin regimen with hold or alterations as needed pending BS monitoring given patient reported poor intake, accu checks w/ ISS. ADA diet once diet advanced from clears. (11) SCOTTY: BIPAP q HS. (12) Depression-Anxiety: Continue home Sertraline, BZD regimen. (13) Morbid Obesity: Weight loss and lifestyle changes encouraged, nutrition consulted. (14) Prophylaxis: SCDs, lovenox. (15) CODE status: Patient notes she does have living will in place [facility] is her daughter. Discussed CODE status at length including difference between FULL code, DNR-CCA and DNR-CC status. Following discussions about the differences in these status, requested Full Code status. She notes she still has quality of life despite her notable co-morbidities and thus will continue Full Code status until decreased quality. Advanced Care Planning Face to Face Time: 17 minutes. Code Visit OBSV E&M: 60631 Initial observation care L3 Procedures: [id number] Advncd Care Plan 30 Min
[2017-11-18 22:03] LABS: Magnesium 2.3 mg/dL (1.6-2.6); T4 Free Direct 1.27 ng/dL (0.76-1.46); Thyroid Stim Hormone (TSH) 0.68 uIU/mL (0.358-3.74)
[2017-11-18 22:33] LABS: Hemoglobin A1c 6.5 % (4.2-6.3)
[2017-11-18] MEDS: Ipratropium/Albuterol Sulfate 3 ML AMPUL.NEB INHALATION (22:34)
[2017-11-19] VITALS (11 sets, daily range): BP systolic 136–165; BP diastolic 53–74; PULSE 63–85; RESP 12–20; TEMP 36.7–37.1; O2SAT 97–100
[2017-11-19] MEDS: Fluticasone 0.05% 1 SPRAY NASAL.SRY 2 SPRAY NASAL ×2 (00:15→22:12)
[2017-11-19] MEDS: Pregabalin 50 MG Capsule PO ×4 (00:15→22:20)
[2017-11-19] MEDS: Montelukast 10 MG Tablet PO ×2 (00:16→22:19)
[2017-11-19] MEDS: Sertraline 100 MG Tablet 200 MG PO ×2 (00:16→22:20)
[2017-11-19] MEDS: traZODone 100 MG Tablet 150 MG PO ×2 (00:16→22:20)
[2017-11-19] MEDS: Metoprolol(XL)Succ 50 MG Tablet PO ×3 (00:17→22:19)
[2017-11-19] MEDS: Atorvastatin Calcium 20 MG Tablet PO ×2 (00:17→22:20)
--- NOTE | 2017-11-19 00:21 | NURSING ---
Admission completed late d/t an emergency on the floor.
[2017-11-19] MEDS: 0.9% Normal Saline 1,000 ML 125 ML IV ×3 (00:45→17:28)
[2017-11-19] MEDS: HYDROcodone Bitartrate/Apap 5/325 Tablet PO ×2 (01:00→12:23)
[2017-11-19] MEDS: Nystatin Powder 15gm Bottle 1 APPLIC TOPICAL ×3 (01:10→22:21)
--- NOTE | 2017-11-19 01:49 | CPS ---
pt on bedside comode
[2017-11-19 02:26] LABS: Bedside Glucose 109 mg/dL (70-110)
--- NOTE | 2017-11-19 02:48 | CPS ---
pt was not tolerating the lower settings-pt placed on 24/02 as at home
[2017-11-19] MEDS: Levothyroxine 25 MCG TABLET PO (06:08)
[2017-11-19 06:10] LABS: Absolute Lymphocyte Count 1.73 X10^3/ul (0.83-4.51); Absolute Neutrophil Count 6.1 X10^3/uL (2.0-7.7); Basophil# 0.02 X10^3/uL; Basophil% 0.2 % (0-1); Eosinophil# 0.21 X10^3/uL; Eosinophils% 2.4 % (0-5); Hematocrit 36.6 % (37-47); Lymphocyte # 1.73 X10^3/ul (4.0); Lymphocyte % 20.1 % (19-41); Mean Corp Hgb Conc 32.8 g/gl (32-36); Mean Corpuscular Hgb 31.1 pg (27.0-32.0); Mean Corpuscular Volume 94.8 fL (81-99); Mean Platelet Vol. 10.1 fl (6.2-12.0); Monocyte# 0.53 X10^3/uL; Monocyte% 6.2 % (0-10); Neutrophil # 6.08 X10^3/uL (2.7-7.7); Neutrophil % 70.8 % (47-70); Platelet Count 200 K/mm3 (150-450); RBC Distribution Width CV 14.9 % (11.6-14.6); RBC Distribution Width SD 49.4 fl (35.1-43.9); Red Blood Count 3.86 M/mm3 (4.2-5.4); White Blood Count 8.6 K/mm3 (4.4-11.0)
[2017-11-19 06:11] LABS: POSITIVE COUNT NO; POSITIVE DIFFERENTIAL NO; POSITIVE MORPHOLOGY NO
[2017-11-19 06:38] LABS: Anion Gap 7 (5-15); BUN 7 mg/dL (7-18); BUN/Creat Ratio 13.4 RATIO (10-20); Calcium,Total 8.3 mg/dL (8.5-10.1); Chloride 107 mmol/L (98-107); Creatinine, Serum 0.52 mg/dL (0.55-1.02); EST Glomerular Filtration Rate 123 mL/min (>60); Est Glom Filt Rate - Afr Amer 149 mL/min (>60); Estimated Creatinine Clearance 38.94 ml/min; Glucose 102 mg/dL (74-106); Potassium 3.5 mmol/L (3.5-5.1); Sodium Level 146 mmol/L (136-145)
[2017-11-19] MEDS: Ipratropium/Albuterol Sulfate 3 ML AMPUL.NEB INHALATION ×3 (07:02→19:00)
[2017-11-19 07:10] LABS: Bedside Glucose 115 mg/dL (70-110)
--- NOTE | 2017-11-19 08:50 | PCA ---
faxed request for medical records to [facility]
[2017-11-19] MEDS: Ondansetron 4 MG/2 ML Vial IV (09:24)
[2017-11-19] MEDS: Multivitamins,Therapeutic Tablet 1 TABLET PO (09:27)
[2017-11-19] MEDS: Furosemide 20 MG Tablet 10 MG PO ×2 (09:28→17:27)
[2017-11-19] MEDS: Enoxaparin 40 MG/0.4 ML Syringe SC (09:29)
[2017-11-19] MEDS: Lisinopril 40 MG Tablet PO (09:30)
--- NOTE | 2017-11-19 10:44 | PCM.PN.HOSP ---
Patient Problems: Active and Suspected Problems (Last Updated 06/24/17 @ 11:40 by Meenakshi Jose) Gastroenteritis (Acute) Subjective: Patient seen and examined. She was admitted with a complaint of diarrhea for about 2 months duration which had worsened with tooth prior to admission. She had an associated 8 pound weight drop over the last several weeks prior to admission with lower left quadrant pain. Stool was not bloody. She does have a history of IBS and has always had diarrhea with it but states that in the past 2 weeks has been getting worse. She has been managed for gastroenteritis and is being hydrated with IV fluids. Patient complains of diarrhea. She denies any vomiting but admits to nausea. She denies any fever or chills, cough or chest pain, shortness of breath and has mild lower left quadrant pain. 12 point review of systems otherwise negative. Labs and vitals reviewed. Vitals/I&O's: Vital Signs Temp Pulse Resp BP Pulse Ox 98.0 F 82 20 H 136/53 H 99 11/19/17 06:00 11/19/17 09:29 11/19/17 07:02 11/19/17 06:00 11/19/17 07:02 Oxygen Flow Rate (L/min) 4 Oxygen Delivery Method Nasal Cannula Weight: 227 lb 15.327 oz Body Mass Index (BMI) 43.0 Intake and Output for Last 24 Hours 11/17/17 11/18/17 11/19/17 23:59 23:59 23:59 Intake Total 1678 / 1678 Balance 1678 / 1678 General: Alert, Oriented x3, Cooperative, No apparent distress HEENT: Atraumatic, PERRLA, EOMI, Normocephalic Oral: Dry Mucosa Neck: Supple, No JVD, Negative Carotid Bruits Lungs: Clear to auscultation, Normal air movement, No rhonchi, No wheeze, No rales Cardiovascular: Regular rate, Regular Rhythm, Normal S1, Normal S2, No murmurs Abdomen: Bowel Sounds Present, Soft, Non Tender, Non-Distended Extremities: No clubbing, No cyanosis, No edema, Capillary Refill Less than 3 Seconds Skin: No rashes, No breakdown Musculoskeletal: No Tenderness to Palpation of Joints or Extremities Lymphatic: No Cervical, Supraclavicular, or Inguinal Adenopathy Neurological: Cranial nerves II-XII grossly intact, Neuro grossly intact Psych/Mental Status: Normal Affect, Appropriate, Alert and oriented to time, place, person, mood and affect Microbiology Past 72 Hours 11/19/17 02:15 Stool Enteric Bacteriology - Final 11/19/17 02:15 Stool C. difficile DNA Amplification - Final Laboratory Results 11/19/17 00:03: POC Glucose 109 11/19/17 05:55: WBC 8.6, RBC 3.86 L, Hgb 12.0, Hct 36.6 L, MCV 94.8, MCH 31.1, MCHC 32.8, RDW 14.9 H, RDW Differential 49.4 H, Plt Count 200, MPV 10.1, Immature Gran % (Auto) 0.300, Neut % (Auto) 70.8 H, Lymph % (Auto) 20.1, [place] % (Auto) 6.2, Eos % (Auto) 2.4, Baso % (Auto) 0.2, Absolute Neuts (auto) 6.1, Absolute Lymphs (auto) 1.73, Total Counted Not Reportable 11/19/17 05:55: Sodium 146 H, Potassium 3.5, Chloride 107, Carbon Dioxide 32.0, Anion Gap 7, BUN 7, Creatinine 0.52 L, Estim Creat Clear Calc 38.94, Est GFR (MDRD) Af Amer 149, Est GFR (MDRD) Non-Af 123, BUN/Creatinine Ratio 13.4, Glucose 102, Calcium 8.3 L 11/19/17 07:05: POC Glucose 115 H Diagnostic Data Abdomen/Pelvis CT 11/18/17 16:43 IMPRESSION: No gross change or definite acute abnormality. Note that evaluation of GI tract is limited without the administration of oral contrast. Electronically Signed: Mason Beyer MD at 18:27 EDT , Service support , Current Medications Hydrocodone Bitart/Acetaminophen ([place] 5mg-325mg) 1 tablet PO BID PRN PRN PRN Reason: SEVERE PAIN (6-1010) Last Admin: 11/19/17 01:00 Dose: 1 tablet Al Hydroxide/Mg Hydroxide (Mylanta Ii) 30 ml PO Q6H PRN PRN PRN Reason: Gastric burning Albuterol Sulfate (Ventolin Aerosols) 2.5 mg INHALATION Q2H PRN PRN PRN Reason: dyspnea, wheezing Albuterol/Ipratropium (Duoneb) 3 ml INHALATION Q6HWA.RT [facility] Last Admin: 11/19/17 07:02 Dose: 3 ml Atorvastatin Calcium (Lipitor) 20 mg PO QHS [facility] Last Admin: 11/19/17 00:17 Dose: 20 mg Enoxaparin Sodium (Lovenox) 40 mg SC DAILY@1000 [facility] Last Admin: 11/19/17 09:29 Dose: 40 mg Fluticasone Propionate (Flonase Nasal [place]) 2 spray NASAL QHS [facility] Last Admin: 11/19/17 00:15 Dose: 2 spray Furosemide (Lasix) 10 mg PO BIDLX [facility] Last Admin: 11/19/17 09:28 Dose: 10 mg Sodium Chloride () 1,000 mls @ 125 mls/hr IV .Q8H [facility] Last Admin: 11/19/17 09:26 Dose: 125 mls/hr Insulin Glargine (Lantus (Bkc)) 15 units SC BID [facility] Last Admin: 11/19/17 09:28 Dose: 15 u Insulin Human Lispro (Humalog Kwikpen (Bk)) 0 unit SC ACHS [facility] PRN Reason: Protocol Last Admin: 11/19/17 07:07 Dose: Not Given Levothyroxine Sodium (Synthroid) 25 mcg PO DAILY@0600 [facility] Last Admin: 11/19/17 06:08 Dose: 25 mcg Lisinopril (Zestril) 40 mg PO DAILY [facility] Last Admin: 11/19/17 09:30 Dose: 40 mg Magnesium Hydroxide (Milk Of Magnesia) 30 ml PO DAILY PRN PRN PRN Reason: Constipation Metoprolol Succinate (Toprol Xl (Beta Gisel)) 50 mg PO BID [facility] Last Admin: 11/19/17 09:29 Dose: 50 mg Montelukast Sodium (Singulair) 10 mg PO QHS [facility] Last Admin: 11/19/17 00:16 Dose: 10 mg Multivitamins (Multivitamin) 1 tablet PO DAILY@0800 [facility] Last Admin: 11/19/17 09:27 Dose: 1 tablet Non-Formulary Medication (Oxygen, Home [Home Oxygen]) 3 lpm NASAL .CONT [facility] Nystatin (Mycostatin Powder) 1 applic TOPICAL TID [facility] PRN Reason: Protocol Last Admin: 11/19/17 01:10 Dose: 1 applicatio Ondansetron HCl (Zofran) 4 mg IV Q8H PRN PRN PRN Reason: NAUSEA Last Admin: 11/19/17 09:24 Dose: 4 mg Potassium Chloride (K-Dur) 10 meq PO 4X/DAY [facility] Last Admin: 11/19/17 09:27 Dose: 10 meq Pregabalin (Lyrica) 50 mg PO TID [facility] Last Admin: 11/19/17 06:08 Dose: 50 mg Promethazine HCl (Phenergan) 12.5 mg IV Q6H PRN PRN PRN Reason: NAUSEA/VOMITING Sertraline HCl (Zoloft) 200 mg PO QHS [facility] Last Admin: 11/19/17 00:16 Dose: 200 mg Trazodone HCl (Desyrel) 150 mg PO QHS [facility] Last Admin: 11/19/17 00:16 Dose: 150 mg Medical Necessity - Tobacco Use Smoking Status: Former smoker Tobacco Use: Non-smoker Assessment/Plan All Active Problems (Last Updated 06/24/17 @ 11:40 by Meenakshi Jose) Gastroenteritis (Acute) H/O hemorrhoidectomy (Resolved) History of tonsillectomy (Resolved) S/P wrist surgery (Resolved) Chest pain (Acute) Cervicalgia (Resolved) Hyperglycemia (Resolved) Recent urinary tract infection (Resolved) 1.Gastroenteritis has a history of IBS; says diarrhea is worse than usual. still has loose stools. C Diff negative. Enteric pathogen screen is also negative. stool for ova and parasites pending. CT abdomen and pelvis was unremarkable continue iVF recently had colonoscoy at [facility]- records requested 2. Hypokalemia: Resolved. Potassium was 3.1 admission is now 3.5. 3. HFpEF on lasix 10mg daily 2D echo(2014): normal LV size, with moderate concentric LVH. Normal LV systolic function. EF of 65%. RVSP of 51mmHg consistent with modrate pulmonary hypertension and mild aortic stenosis. 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 4. Chronic Hypoxic respiratory failure due to COPD stable. on 3L of oxygen at home. Currently on 3L of oxygen. on breathing treatments. 5. Hypertension on lisinopril, norvasc, lasix, toprol and hydralazine. BP fairly controlled 6. Hypothyroidism: TSH is 0.684. continue synthroid 25mcg daily. 7. Diabetes mellitus A1C is 6.5. On Lantus 15 units twice daily and insulin sliding scale. Accu-Cheks before meals at bedtime. 8. Hyperlipidemia: on statin 9. History of Non Hodgkins Lymphoma: stable. s/p chemotherapy. Follows up with Dr Alvarado 10.SCOTTY: on BiPAP nightly 11. Depression and anxiety: On sertraline and benzodiazepine DVT prophylaxis: heparin Code Status: Full code This note was generated with Oligomer[employer] software. It may contain incorrect words, spelling, and punctuation that were not noted in checking the note before signing. Code Visit Inpatient E&M: 11337 [facility] Hosp L3
--- NOTE | 2017-11-19 11:06 | PN_ITS ---
Patient Problems: Active and Suspected Problems (Last Updated 06/24/17 @ 11:40 by Meenakshi Jose) Gastroenteritis (Acute) Subjective: Patient seen and examined. She was admitted with a complaint of diarrhea for about 2 months duration which had worsened with tooth prior to admission. She had an associated 8 pound weight drop over the last several weeks prior to admission with lower left quadrant pain. Stool was not bloody. She does have a history of IBS and has always had diarrhea with it but states that in the past 2 weeks has been getting worse. She has been managed for gastroenteritis and is being hydrated with IV fluids. Patient complains of diarrhea. She denies any vomiting but admits to nausea. She denies any fever or chills, cough or chest pain, shortness of breath and has mild lower left quadrant pain. 12 point review of systems otherwise negative. Labs and vitals reviewed. Vitals/I&O's: Vital Signs Temp Pulse Resp BP Pulse Ox 98.0 F 82 20 H 136/53 H 99 11/19/17 06:00 11/19/17 09:29 11/19/17 07:02 11/19/17 06:00 11/19/17 07:02 Oxygen Flow Rate (L/min) 4 Oxygen Delivery Method Nasal Cannula Weight: 227 lb 15.327 oz Body Mass Index (BMI) 43.0 Intake and Output for Last 24 Hours 11/17/17 11/18/17 11/19/17 23:59 23:59 23:59 Intake Total 1678 / 1678 Balance 1678 / 1678 General: Alert, Oriented x3, Cooperative, No apparent distress HEENT: Atraumatic, PERRLA, EOMI, Normocephalic Oral: Dry Mucosa Neck: Supple, No JVD, Negative Carotid Bruits Lungs: Clear to auscultation, Normal air movement, No rhonchi, No wheeze, No rales Cardiovascular: Regular rate, Regular Rhythm, Normal S1, Normal S2, No murmurs Abdomen: Bowel Sounds Present, Soft, Non Tender, Non-Distended Extremities: No clubbing, No cyanosis, No edema, Capillary Refill Less than 3 Seconds Skin: No rashes, No breakdown Musculoskeletal: No Tenderness to Palpation of Joints or Extremities Lymphatic: No Cervical, Supraclavicular, or Inguinal Adenopathy Neurological: Cranial nerves II-XII grossly intact, Neuro grossly intact Psych/Mental Status: Normal Affect, Appropriate, Alert and oriented to time, place, person, mood and affect Microbiology Past 72 Hours 11/19/17 02:15 Stool Enteric Bacteriology - Final 11/19/17 02:15 Stool C. difficile DNA Amplification - Final Laboratory Results 11/19/17 00:03: POC Glucose 109 11/19/17 05:55: WBC 8.6, RBC 3.86 L, Hgb 12.0, Hct 36.6 L, MCV 94.8, MCH 31.1, MCHC 32.8, RDW 14.9 H, RDW Differential 49.4 H, Plt Count 200, MPV 10.1, Immature Gran % (Auto) 0.300, Neut % (Auto) 70.8 H, Lymph % (Auto) 20.1, [place] % (Auto) 6.2, Eos % (Auto) 2.4, Baso % (Auto) 0.2, Absolute Neuts (auto) 6.1, Absolute Lymphs (auto) 1.73, Total Counted Not Reportable 11/19/17 05:55: Sodium 146 H, Potassium 3.5, Chloride 107, Carbon Dioxide 32.0, Anion Gap 7, BUN 7, Creatinine 0.52 L, Estim Creat Clear Calc 38.94, Est GFR ( MDRD) Af Amer 149, Est GFR (MDRD) Non-Af 123, BUN/Creatinine Ratio 13.4, Glucose 102, Calcium 8.3 L 11/19/17 07:05: POC Glucose 115 H Diagnostic Data Abdomen/Pelvis CT 11/18/17 16:43 IMPRESSION: No gross change or definite acute abnormality. Note that evaluation of GI tract is limited without the administration of oral contrast. Electronically Signed: Mason Beyer MD at 18:27 EDT , Service support , Current Medications Hydrocodone Bitart/Acetaminophen ([place] 5mg-325mg) 1 tablet PO BID PRN PRN PRN Reason: SEVERE PAIN (6-1010) Last Admin: 11/19/17 01:00 Dose: 1 tablet Al Hydroxide/Mg Hydroxide (Mylanta Ii) 30 ml PO Q6H PRN PRN PRN Reason: Gastric burning Albuterol Sulfate (Ventolin Aerosols) 2.5 mg INHALATION Q2H PRN PRN PRN Reason: dyspnea, wheezing Albuterol/Ipratropium (Duoneb) 3 ml INHALATION Q6HWA.RT [facility] Last Admin: 11/19/17 07:02 Dose: 3 ml Atorvastatin Calcium (Lipitor) 20 mg PO QHS [facility] Last Admin: 11/19/17 00:17 Dose: 20 mg Enoxaparin Sodium (Lovenox) 40 mg SC DAILY@1000 [facility] Last Admin: 11/19/17 09:29 Dose: 40 mg Fluticasone Propionate (Flonase Nasal [place]) 2 spray NASAL QHS [facility] Last Admin: 11/19/17 00:15 Dose: 2 spray Furosemide (Lasix) 10 mg PO BIDLX [facility] Last Admin: 11/19/17 09:28 Dose: 10 mg Sodium Chloride () 1,000 mls @ 125 mls/hr IV .Q8H [facility] Last Admin: 11/19/17 09:26 Dose: 125 mls/hr Insulin Glargine (Lantus (Bkc)) 15 units SC BID [facility] Last Admin: 11/19/17 09:28 Dose: 15 u Insulin Human Lispro (Humalog Kwikpen (Bk)) 0 unit SC ACHS [facility] PRN Reason: Protocol Last Admin: 11/19/17 07:07 Dose: Not Given Levothyroxine Sodium (Synthroid) 25 mcg PO DAILY@0600 [facility] Last Admin: 11/19/17 06:08 Dose: 25 mcg Lisinopril (Zestril) 40 mg PO DAILY [facility] Last Admin: 11/19/17 09:30 Dose: 40 mg Magnesium Hydroxide (Milk Of Magnesia) 30 ml PO DAILY PRN PRN PRN Reason: Constipation Metoprolol Succinate (Toprol Xl (Beta Gisel)) 50 mg PO BID [facility] Last Admin: 11/19/17 09:29 Dose: 50 mg Montelukast Sodium (Singulair) 10 mg PO QHS [facility] Last Admin: 11/19/17 00:16 Dose: 10 mg Multivitamins (Multivitamin) 1 tablet PO DAILY@0800 [facility] Last Admin: 11/19/17 09:27 Dose: 1 tablet Non-Formulary Medication (Oxygen, Home [Home Oxygen]) 3 lpm NASAL .CONT [facility] Nystatin (Mycostatin Powder) 1 applic TOPICAL TID [facility] PRN Reason: Protocol Last Admin: 11/19/17 01:10 Dose: 1 applicatio Ondansetron HCl (Zofran) 4 mg IV Q8H PRN PRN PRN Reason: NAUSEA Last Admin: 11/19/17 09:24 Dose: 4 mg Potassium Chloride (K-Dur) 10 meq PO 4X/DAY [facility] Last Admin: 11/19/17 09:27 Dose: 10 meq Pregabalin (Lyrica) 50 mg PO TID [facility] Last Admin: 11/19/17 06:08 Dose: 50 mg Promethazine HCl (Phenergan) 12.5 mg IV Q6H PRN PRN PRN Reason: NAUSEA/VOMITING Sertraline HCl (Zoloft) 200 mg PO QHS [facility] Last Admin: 11/19/17 00:16 Dose: 200 mg Trazodone HCl (Desyrel) 150 mg PO QHS [facility] Last Admin: 11/19/17 00:16 Dose: 150 mg Medical Necessity - Tobacco Use Smoking Status: Former smoker Tobacco Use: Non-smoker Assessment/Plan All Active Problems (Last Updated 06/24/17 @ 11:40 by Meenakshi Jose) Gastroenteritis (Acute) H/O hemorrhoidectomy (Resolved) History of tonsillectomy (Resolved) S/P wrist surgery (Resolved) Chest pain (Acute) Cervicalgia (Resolved) Hyperglycemia (Resolved) Recent urinary tract infection (Resolved) 1.Gastroenteritis * has a history of IBS; says diarrhea is worse than usual. * still has loose stools. C Diff negative. Enteric pathogen screen is also negative. * stool for ova and parasites pending. CT abdomen and pelvis was unremarkable * continue iVF * recently had colonoscoy at [facility]- records requested * 2. Hypokalemia: Resolved. Potassium was 3.1 admission is now 3.5. 3. HFpEF * on lasix 10mg daily * 2D echo(2014): normal LV size, with moderate concentric LVH. Normal LV systolic function. EF of 65%. RVSP of 51mmHg consistent with modrate pulmonary hypertension and mild aortic stenosis. 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 * 4. Chronic Hypoxic respiratory failure due to COPD * stable. on 3L of oxygen at home. Currently on 3L of oxygen. * on breathing treatments. * 5. Hypertension * on lisinopril, norvasc, lasix, toprol and hydralazine. * BP fairly controlled * 6. Hypothyroidism: * TSH is 0.684. continue synthroid 25mcg daily. * 7. Diabetes mellitus * A1C is 6.5. * On Lantus 15 units twice daily and insulin sliding scale. Accu-Cheks before meals at bedtime. * 8. Hyperlipidemia: on statin 9. History of Non Hodgkins Lymphoma: stable. s/p chemotherapy. Follows up with Dr Alvarado 10.SCOTTY: on BiPAP nightly 11. Depression and anxiety: On sertraline and benzodiazepine DVT prophylaxis: heparin Code Status: Full code This note was generated with [employer] dictation software. It may contain incorrect words, spelling, and punctuation that were not noted in checking the note before signing. Code Visit Inpatient E&M: 75998 [facility] Hosp L3
--- NOTE | 2017-11-19 11:30 | CASEMGMT ---
RN OCTAVIO Face to Face with patient for initial transition planning/care coordination assessment. RN OCTAVIO introduced self and role at [facility]. Patient lying in bed, alert and oriented. Patient willing to participate in assessment and is able to answer all questions appropriately. Care providers, pharmacy, and demographics verified. See link attached. Patient wishes to discharge home with resumption of aide services and Passport. Patient denied need for [facility] for long term or therapy. Patient states she has no further needs or concerns at this time. CM called [facility] and updated regarding patient in hospital and will fax updated clinicals when patient discharges.CM to follow for discharge planning needs that may arise. Disposition Plan: Patient to discharge home with aides services and follow-up plans in place. Libby ARENAS, RN, CM
[2017-11-19 12:25] LABS: Bedside Glucose 147 mg/dL (70-110)
--- NOTE | 2017-11-19 16:42 | CASEMGMT ---
Social Work Note RN OCTAVIO Santana updated this worker that pt has PASSPORT services and pt's CM is Anneliese. SW placed a call to Anneliese at [facility] and left her a message regarding pt's admission into [facility]. Libby Ruiz COTTRELL BLOWER, WOOD FINISHER APPRENTICE
[2017-11-19 17:50] LABS: Bedside Glucose 104 mg/dL (70-110)
[2017-11-19] MEDS: Dicyclomine 10 MG Capsule PO (20:35)
[2017-11-19 22:35] LABS: Bedside Glucose 109 mg/dL (70-110)
[2017-11-20] VITALS (7 sets, daily range): BP systolic 153–158; BP diastolic 65–79; PULSE 73–81; RESP 18–20; TEMP 36.6–36.9; O2SAT 97–99
[2017-11-20] MEDS: HYDROcodone Bitartrate/Apap 5/325 Tablet PO ×2 (00:25→13:22)
[2017-11-20] MEDS: Ondansetron 4 MG/2 ML Vial IV (00:26)
[2017-11-20] MEDS: 0.9% Normal Saline 1,000 ML 125 ML IV (01:27)
--- NOTE | 2017-11-20 04:28 | CPS ---
Pt refuse bipap tonight.
[2017-11-20] MEDS: Levothyroxine 25 MCG TABLET PO (06:07)
[2017-11-20] MEDS: Pregabalin 50 MG Capsule PO ×2 (06:07→13:22)
[2017-11-20] MEDS: Nystatin Powder 15gm Bottle 1 APPLIC TOPICAL ×2 (06:07→13:22)
[2017-11-20 06:17] LABS: Absolute Lymphocyte Count 1.29 X10^3/ul (0.83-4.51); Absolute Neutrophil Count 7.1 X10^3/uL (2.0-7.7); Basophil# 0.02 X10^3/uL; Basophil% 0.2 % (0-1); Eosinophils% 2.2 % (0-5); Hematocrit 39.5 % (37-47); Hemoglobin 12.3 g/dl (12.0-15.0); Lymphocyte # 1.29 X10^3/ul (4.0); Mean Corp Hgb Conc 31.1 g/gl (32-36); Mean Corpuscular Hgb 30.1 pg (27.0-32.0); Mean Corpuscular Volume 96.8 fL (81-99); Mean Platelet Vol. 10.3 fl (6.2-12.0); Monocyte# 0.54 X10^3/uL; Monocyte% 5.9 % (0-10); Neutrophil # 7.13 X10^3/uL (2.7-7.7); Neutrophil % 77.4 % (47-70); Platelet Count 202 K/mm3 (150-450); RBC Distribution Width CV 15.2 % (11.6-14.6); RBC Distribution Width SD 52.1 fl (35.1-43.9); Red Blood Count 4.08 M/mm3 (4.2-5.4); White Blood Count 9.2 K/mm3 (4.4-11.0)
[2017-11-20 06:20] LABS: POSITIVE COUNT NO; POSITIVE DIFFERENTIAL NO; POSITIVE MORPHOLOGY NO
[2017-11-20] MEDS: Ipratropium/Albuterol Sulfate 3 ML AMPUL.NEB INHALATION ×2 (06:37→13:41)
[2017-11-20 06:38] LABS: Anion Gap 6 (5-15); BUN 5 mg/dL (7-18); BUN/Creat Ratio 9.7 RATIO (10-20); Calcium,Total 8.2 mg/dL (8.5-10.1); Chloride 110 mmol/L (98-107); Creatinine, Serum 0.51 mg/dL (0.55-1.02); EST Glomerular Filtration Rate 125 mL/min (>60); Est Glom Filt Rate - Afr Amer 152 mL/min (>60); Estimated Creatinine Clearance 38.94 ml/min; Glucose 125 mg/dL (74-106); Potassium 3.8 mmol/L (3.5-5.1); Sodium Level 148 mmol/L (136-145)
[2017-11-20 07:21] LABS: Bedside Glucose 136 mg/dL (70-110)
--- NOTE | 2017-11-20 09:52 | NURSING ---
pt requesting to take it easy with her stomach- will give AM medications after pt eats breakfast. This RN called in breakfast order at this time.
--- NOTE | 2017-11-20 10:30 | PCA ---
got medical records from [facility]
[2017-11-20] MEDS: Multivitamins,Therapeutic Tablet 1 TABLET PO (11:18)
[2017-11-20] MEDS: Furosemide 20 MG Tablet 10 MG PO (11:19)
[2017-11-20] MEDS: Metoprolol(XL)Succ 50 MG Tablet PO (11:19)
[2017-11-20] MEDS: Lisinopril 40 MG Tablet PO (11:20)
[2017-11-20] MEDS: Albuterol 2.5 MG/3 ML VIAL.NEB. INHALATION (11:51)
--- NOTE | 2017-11-20 11:56 | PCM.DC ---
- Discharge Diagnoses Current Active Problems: Current Active and Chronic Problems (Last Updated 06/24/17 @ 11:40 by Meenakshi Jose) Morbid obesity (Chronic) Gastroenteritis (Acute) Chronic obstructive pulmonary disease (Chronic) IBS (irritable bowel syndrome) (Chronic) You will use the following diet at home:: Cardiac Your food should be the consistency of: Regular Your liquids should be the consistency of: Regular/Thin Discharge Activity: Return to Normal Activity Weight Bearing Status: Weight bearing as tolerated Call your doctor if you observe: Dizziness, - - worsening diarrhea Instructions: Treating Diarrhea Allergies/Adverse Reactions: Allergies adhesive Allergy (Verified 10/11/17 15:) Itching adhesive tape Allergy (Verified 10/11/17 15:) Rash amoxicillin trihydrate [From Augmentin] Allergy (Verified 10/11/17 15:) Hives latex Allergy (Verified 10/11/17 15:) Rash Latex, Natural Rubber Allergy (Verified 10/11/17 15:) Rash metronidazole [From Flagyl] Allergy (Verified 10/11/17 15:26) Hives Metronidazole HCl [From Flagyl] Allergy (Verified 10/11/17 15:26) Hives Penicillins [PCN] Allergy (Verified 11/18/17 21:28) Hives potassium clavulanate [From Augmentin] Allergy (Verified 10/11/17 15:26) Hives sulfamethoxazole [From Bactrim] Allergy (Verified 10/11/17 15:) Hives hives trimethoprim [From Bactrim] Allergy (Verified 10/11/17 15:26) Hives hives diphenhydramine HCl [From Benadryl] Adverse Reaction (Verified 10/11/17 15:26) i could crawl to the ceiling i could crawl the ceiling omeprazole Adverse Reaction (Verified 10/11/17 15:26) Nausea promethazine HCl [From Phenergan] Adverse Reaction (Verified 10/11/17 15:26) Nausea antihistamine Allergy (Uncoded 10/11/17 15:) i could crawl to the ceiling crawl the ceiling cat scan dye Allergy (Uncoded 10/11/17 15:26) Anaphylaxis Medications to take at Discharge Albuterol Inhaler [Ventolin Hfa] 2 puff INHALATION Q6H PRN PRN 06/29/14 Levothyroxine [Synthroid] 25 mcg PO DAILY 06/29/14 Montelukast [Singulair] 10 mg PO QHS 06/29/14 Oxygen, Home [Home Oxygen] 4 lpm NASAL CONT 06/29/14 Pantoprazole Sodium [Protonix] 40 mg PO BID 06/29/14 Potassium Chloride [K-Dur] 10 meq PO 4X/DAY 06/29/14 Sertraline HCl [Zoloft] 200 mg PO QHS 06/29/14 Umeclidinium Brm/Vilanterol Tr [Anoro Ellipta 62.5-25 Mcg INH] 1 each IH DAILY 06/29/14 Albuterol Aerosols [Ventolin Aerosols] 2.5 mg INHALATION Q4H PRN PRN 08/20/14 Insulin Detemir [Levemir FlexPen] 15 units SC BID 01/26/15 Atorvastatin Calcium [Lipitor] 20 mg PO QHS 09/18/15 Fluticasone 0.05% [Flonase Nasal [place]] 2 spray NASAL QHS 09/18/15 Liraglutide [Victoza 2-Yan] 1.2 mg SQ DAILY 09/18/15 Pregabalin [Lyrica] 50 mg PO TID 09/18/15 traZODone [Desyrel] 150 mg PO QHS 11/26/16 Ketoconazole [Nizoral] 120 ml TP DAILY 12/03/16 Loperamide [Imodium] 2 mg PO BID PRN PRN 12/03/16 Nystatin Powder [Mycostatin Powder] 1 applic TOPICAL Q6H PRN 12/03/16 Acetaminophen [Tylenol] 1,000 mg PO BID 10/11/17 Furosemide [Lasix] 10 mg PO BID 10/11/17 Hydrocodone/Acetaminophen [Hydrocodone-Acetamin 5-325 mg] 1 tab PO BID PRN PRN 10/11/17 Lisinopril [Zestril] 40 mg PO DAILY 10/11/17 Metoprolol Succinate [Toprol Xl] 50 mg PO BID 10/11/17 Multivitamin [Multiple Vitamins] 1 tablet PO DAILY 10/11/17 Fluticasone Furoate [Arnuity Ellipta] 1 puff IH DAILY 11/18/17 Insulin Lispro [Humalog KwikPen] 8 unit SQ BREAKFAST 11/18/17 Insulin Lispro [Humalog KwikPen] 8 units SQ LUNCH 11/18/17 Insulin Lispro [Humalog KwikPen] 12 unit SQ DINNER 11/18/17 Magnesium Oxide [Magnesium] 400 mg PO DAILY 11/18/17 Nystatin 15 gm TP BID PRN PRN 11/18/17 Primary Care Physician: Zabrina Bain MD [Primary Care Provider] - Please follow up with your Primary Care Physician in: one week Test Results: Test results from this visit will be discussed in further detail at your follow-up appointment, if applicable. Proposed Discharge Date: 11/20/17
--- NOTE | 2017-11-20 11:58 | DS.PCM_ITS ---
Discharge Date and Diagnosis - Problem List Patient Problems: Active and Suspected Problems (Last Updated 06/24/17 @ 11:40 by Meenakshi Jose) Gastroenteritis (Acute) Date of Admission: 11/18/17 Date of Discharge: 11/20/17 - Primary Discharge Diagnosis Active and Suspected Problems (Last Updated 06/24/17 @ 11:40 by Meenakshi Jose) Gastroenteritis (Acute) - Secondary Discharge Diagnosis Chronic Problems (Last Updated 06/24/17 @ 11:40 by Meenakshi Jose) Morbid obesity (Chronic) Chronic obstructive pulmonary disease (Chronic) IBS (irritable bowel syndrome) (Chronic) retirement use of drug (Chronic) Antihyperlipidemic Nonrheumatic aortic valve stenosis (Chronic) Nonrheumatic mitral valve insufficiency (Chronic) Heart failure (Chronic) Non Hodgkin's lymphoma (Chronic) Anxiety (Chronic) Depression (Chronic) Hypertension (Chronic) Hyperlipidemia (Chronic) Chronic respiratory failure (Chronic) copd 3 liters continuous Hypothyroidism (Chronic) GERD (gastroesophageal reflux disease) (Chronic) Diabetes mellitus, type II (Chronic) Benign essential HTN (Chronic) Sleep apnea (Chronic) Fatty liver disease, nonalcoholic (Chronic) Sjogren's syndrome (Chronic) Diverticulosis (Chronic) Mild aortic stenosis (Chronic) Super obesity (Chronic) bmi 48 Hospital Course and Treatment Imaging Results: Diagnostic Data Abdomen/Pelvis CT 11/18/17 16:43 IMPRESSION: No gross change or definite acute abnormality. Note that evaluation of GI tract is limited without the administration of oral contrast. Electronically Signed: Mason Beyer MD at 18:27 EDT , Service support , Laboratory Tests 11/18/17 11/18/17 11/18/17 17:37 17:37 17:37 WBC 10.5 RBC 4.41 Hgb 13.2 Hct 40.7 MCV 92.3 MCH 29.9 MCHC 32.4 RDW 14.9 H RDW Differential 50.3 H Plt Count 222 MPV 9.9 Immature Gran % (Auto) 0.300 Neut % (Auto) 77.4 H Lymph % (Auto) 15.1 L [place] % (Auto) 5.9 Eos % (Auto) 1.1 Baso % (Auto) 0.2 Absolute Neuts (auto) 8.2 H Absolute Lymphs (auto) 1.59 Total Counted Not Reportable Sodium 146 H Potassium 3.2 L Chloride 101 Carbon Dioxide 34.0 H Anion Gap 11 BUN 6 L Creatinine 0.48 L Estim Creat Clear Calc 38.94 Est GFR (MDRD) Af Amer 165 Est GFR (MDRD) Non-Af 136 BUN/Creatinine Ratio 12.6 Glucose 92 Hemoglobin A1c Lactic Acid 0.6 Calcium 9.0 Phosphorus Magnesium Total Bilirubin 1.10 H AST 24 ALT 26 Alkaline Phosphatase 144 H Total Protein 7.1 Albumin 3.6 Globulin 3.5 Albumin/Globulin Ratio 1.0 Lipase 131 TSH Free T4 POC Glucose 11/18/17 11/18/17 11/19/17 17:37 17:37 00:03 WBC RBC Hgb Hct MCV MCH MCHC RDW RDW Differential Plt Count MPV Immature Gran % (Auto) Neut % (Auto) Lymph % (Auto) [place] % (Auto) Eos % (Auto) Baso % (Auto) Absolute Neuts (auto) Absolute Lymphs (auto) Total Counted Sodium Potassium Chloride Carbon Dioxide Anion Gap BUN Creatinine Estim Creat Clear Calc Est GFR (MDRD) Af Amer Est GFR (MDRD) Non-Af BUN/Creatinine Ratio Glucose Hemoglobin A1c 6.5 H Lactic Acid Calcium Phosphorus 3.0 Magnesium 2.3 Total Bilirubin AST ALT Alkaline Phosphatase Total Protein Albumin Globulin Albumin/Globulin Ratio Lipase TSH 0.68 Free T4 1.27 POC Glucose 109 11/19/17 11/19/17 11/19/17 05:55 05:55 07:05 WBC 8.6 RBC 3.86 L Hgb 12.0 Hct 36.6 L MCV 94.8 MCH 31.1 MCHC 32.8 RDW 14.9 H RDW Differential 49.4 H Plt Count 200 MPV 10.1 Immature Gran % (Auto) 0.300 Neut % (Auto) 70.8 H Lymph % (Auto) 20.1 [place] % (Auto) 6.2 Eos % (Auto) 2.4 Baso % (Auto) 0.2 Absolute Neuts (auto) 6.1 Absolute Lymphs (auto) 1.73 Total Counted Not Reportable Sodium 146 H Potassium 3.5 Chloride 107 Carbon Dioxide 32.0 Anion Gap 7 BUN 7 Creatinine 0.52 L Estim Creat Clear Calc 38.94 Est GFR (MDRD) Af Amer 149 Est GFR (MDRD) Non-Af 123 BUN/Creatinine Ratio 13.4 Glucose 102 Hemoglobin A1c Lactic Acid Calcium 8.3 L Phosphorus Magnesium Total Bilirubin AST ALT Alkaline Phosphatase Total Protein Albumin Globulin Albumin/Globulin Ratio Lipase TSH Free T4 POC Glucose 115 H 11/19/17 11/19/17 11/19/17 12:17 17:26 22:09 WBC RBC Hgb Hct MCV MCH MCHC RDW RDW Differential Plt Count MPV Immature Gran % (Auto) Neut % (Auto) Lymph % (Auto) [place] % (Auto) Eos % (Auto) Baso % (Auto) Absolute Neuts (auto) Absolute Lymphs (auto) Total Counted Sodium Potassium Chloride Carbon Dioxide Anion Gap BUN Creatinine Estim Creat Clear Calc Est GFR (MDRD) Af Amer Est GFR (MDRD) Non-Af BUN/Creatinine Ratio Glucose Hemoglobin A1c Lactic Acid Calcium Phosphorus Magnesium Total Bilirubin AST ALT Alkaline Phosphatase Total Protein Albumin Globulin Albumin/Globulin Ratio Lipase TSH Free T4 POC Glucose 147 H 104 109 11/20/17 11/20/17 11/20/17 05:50 05:50 07:15 WBC 9.2 RBC 4.08 L Hgb 12.3 Hct 39.5 MCV 96.8 MCH 30.1 MCHC 31.1 L RDW 15.2 H RDW Differential 52.1 H Plt Count 202 MPV 10.3 Immature Gran % (Auto) 0.300 Neut % (Auto) 77.4 H Lymph % (Auto) 14.0 L [place] % (Auto) 5.9 Eos % (Auto) 2.2 Baso % (Auto) 0.2 Absolute Neuts (auto) 7.1 Absolute Lymphs (auto) 1.29 Total Counted Not Reportable Sodium 148 H Potassium 3.8 Chloride 110 H Carbon Dioxide 32.0 Anion Gap 6 BUN 5 L Creatinine 0.51 L Estim Creat Clear Calc 38.94 Est GFR (MDRD) Af Amer 152 Est GFR (MDRD) Non-Af 125 BUN/Creatinine Ratio 9.7 L Glucose 125 H Hemoglobin A1c Lactic Acid Calcium 8.2 L Phosphorus Magnesium Total Bilirubin AST ALT Alkaline Phosphatase Total Protein Albumin Globulin Albumin/Globulin Ratio Lipase TSH Free T4 POC Glucose 136 H Operations: None Procedures: None Summary of Care Provided: The patient is a 72 year old F with past medical history of chronic respiratory failure due to COPD and SCOTTY, on 3 L of oxygen at home and nightly BiPAP, diabetes mellitus, hypertension, hyperlipidemia hypothyroidism depression and anxiety as well as non-Hodgkin's lymphoma. She also has a history of irritable bowel syndrome diarrhea predominant. She was admitted by the ED on 11/18/2017 with a complaint of diarrhea which had been going on for about 2 months and had worsened for about 2 weeks prior to presentation. It was worse with oral intake and she also complained of an 8 pound weight loss and assisted left lower quadrant pain. She was admitted and managed for gastroenteritis. CT of the abdomen and pelvis without contrast showed no acute pathology was limited due to lack of IV and oral contrast. She was also managed for hypokalemia likely due to GI loss. Patient was resuscitated with IV fluids and potassium was replaced. Stool for C. difficile was negative and stool and third pathogens was also negative. Ova and parasites were also negative. Nausea and diarrhea resolved and patient was discharged home on 11/20/2017. She is to follow-up with her PCP. Seen and examined prior to discharge. She has no complaints and felt well. Diarrhea had improved and she is now having soft stool. She tolerated regular diet. She denied any fever or chills, any cough or chest pain, any abdominal pain or vomiting. 12 point review of systems was otherwise negative. Labs and vitals reviewed. o/e: Vital Signs Height 5 ft 1 in Weight: 227 lb 15.327 oz Weight in Pounds 228.0 lbs Pulse Ox 97 Temperature 98.5 F Pulse Rate 81 Respiratory Rate 18 Blood Pressure 156/65 Blood Pressure Position Semi-Fowlers []General: Alert, Oriented x3, Cooperative, No apparent distress HEENT: Atraumatic, PERRLA, EOMI, Normocephalic Oral: Dry Mucosa Neck: Supple, No JVD, Negative Carotid Bruits Lungs: Clear to auscultation, Normal air movement, No rhonchi, No wheeze, No rales Cardiovascular: Regular rate, Regular Rhythm, Normal S1, Normal S2, No murmurs Abdomen: Bowel Sounds Present, Soft, Non Tender, Non-Distended Extremities: No clubbing, No cyanosis, No edema, Capillary Refill Less than 3 Seconds Skin: No rashes, No breakdown Musculoskeletal: No Tenderness to Palpation of Joints or Extremities Lymphatic: No Cervical, Supraclavicular, or Inguinal Adenopathy Neurological: Cranial nerves II-XII grossly intact, Neuro grossly intact Psych/Mental Status: Normal Affect, Appropriate, Alert and oriented to time, place, person, mood and affect Plan as stated above. Discharge Diet: Low fat/ Low Cholesterol Discharge Activity: Return to Normal Activity Weight Bearing Status: Weight bearing as tolerated Call your doctor if you observe: Dizziness, - - worsening diarrhea Home Medications: Medications to take at Discharge Albuterol Inhaler [Ventolin Hfa] 2 puff INHALATION Q6H PRN PRN 06/29/14 Levothyroxine [Synthroid] 25 mcg PO DAILY 06/29/14 Montelukast [Singulair] 10 mg PO QHS 06/29/14 Oxygen, Home [Home Oxygen] 4 lpm NASAL CONT 06/29/14 Pantoprazole Sodium [Protonix] 40 mg PO BID 06/29/14 Potassium Chloride [K-Dur] 10 meq PO 4X/DAY 06/29/14 Sertraline HCl [Zoloft] 200 mg PO QHS 06/29/14 Umeclidinium Brm/Vilanterol Tr [Anoro Ellipta 62.5-25 Mcg INH] 1 each IH DAILY 06/29/14 Albuterol Aerosols [Ventolin Aerosols] 2.5 mg INHALATION Q4H PRN PRN 08/20/14 Insulin Detemir [Levemir FlexPen] 15 units SC BID 01/26/15 Atorvastatin Calcium [Lipitor] 20 mg PO QHS 09/18/15 Fluticasone 0.05% [Flonase Nasal [place]] 2 spray NASAL QHS 09/18/15 Liraglutide [Victoza 2-Yan] 1.2 mg SQ DAILY 09/18/15 Pregabalin [Lyrica] 50 mg PO TID 09/18/15 traZODone [Desyrel] 150 mg PO QHS 11/26/16 Ketoconazole [Nizoral] 120 ml TP DAILY 12/03/16 Loperamide [Imodium] 2 mg PO BID PRN PRN 12/03/16 Nystatin Powder [Mycostatin Powder] 1 applic TOPICAL Q6H PRN 12/03/16 Acetaminophen [Tylenol] 1,000 mg PO BID 10/11/17 Furosemide [Lasix] 10 mg PO BID 10/11/17 Hydrocodone/Acetaminophen [Hydrocodone-Acetamin 5-325 mg] 1 tab PO BID PRN PRN 10/11/17 Lisinopril [Zestril] 40 mg PO DAILY 10/11/17 Metoprolol Succinate [Toprol Xl] 50 mg PO BID 10/11/17 Multivitamin [Multiple Vitamins] 1 tablet PO DAILY 10/11/17 Fluticasone Furoate [Arnuity Ellipta] 1 puff IH DAILY 11/18/17 Insulin Lispro [Humalog KwikPen] 8 unit SQ BREAKFAST 11/18/17 Insulin Lispro [Humalog KwikPen] 8 units SQ LUNCH 11/18/17 Insulin Lispro [Humalog KwikPen] 12 unit SQ DINNER 11/18/17 Magnesium Oxide [Magnesium] 400 mg PO DAILY 11/18/17 Nystatin 15 gm TP BID PRN PRN 11/18/17 Primary Care Physician: Zabrina Bain MD [Primary Care Provider] - Please follow up with your Primary Care Physician in: one week Please Follow Up With: Evan Collazo MD When: 1-2 weeks for IBS and diarrhea Patient Instructions: Treating Diarrhea Disposition: Home Minutes spent on discharge:: 40 Patient Condition:: Stable Medical Necessity - Tobacco Use Smoking Status: Former smoker Tobacco Use: Non-smoker Meaningful Use Info Meaningful Use Diagnoses (Choose all that apply): None applicable Code Visit Inpatient E&M: 84890 Disch Hosp
--- NOTE | 2017-11-20 12:38 | CASEMGMT ---
Medicare Outpatient Observation Notice completed with patient at this time. Patient verbalized understanding and denied questions at this time. RN CM provided copy of MORILLO to patient, original filed in chart.
--- NOTE | 2017-11-20 12:44 | CASEMGMT ---
RN OCTAVIO called and left message with [facility] services to update on patient discharge and resumption of aide services. Voice message left with return contact information.
--- NOTE | 2017-11-20 12:46 | CASEMGMT ---
Social Work Note Pt is being discharged today. SW placed a call to pt's OCTAVIO Coy at [facility] and left her a message informing her that pt is being discharged today. Libby Ruiz HIGH SCHOOL COORDINATOR, [employer] EXAMINER
[2017-11-20] MEDS: Dicyclomine 10 MG Capsule PO (13:22)
[2017-11-20 13:45] LABS: Bedside Glucose 136 mg/dL (70-110)
[2017-11-20] MEDS: 0.9% NaCl VAD Flush 10 ML IV (13:48)
--- NOTE | 2017-11-20 17:41 | NURSING ---
Doctor came to see pt this AM. Upon this RN entering room patient stated that the doctor said she would order her a diet so she could eat but that she would be discharged today. Body language from pt showed disappointment. This RN reminded patient that she had only 1 BM during night and that her stool samples came back negative. Pt verbalized understanding. Vitals taken- temperature 98.5- pt asked this RN to repeat reading and stated that is a temperature for me, I am 97.4. Notified patient that her WBC's were WNL and doctor does not believe she has an infection, as ATB was d/c'ed. Again, pt verbalized understanding. Pt began breathing fast and reported she was SOB. This RN checked SPO2- pt reported that it always reads just fine but that she is short of breath. This RN listened to lungs. Lung sounds dim (did have exp. wheezes t/o day, which aerosols were given for). Pt states she is on 4L of O2 at home- noticed O2 was at 3L- same turned up. Pt began conversing more and rolled onto her side and rubbed posterior aspect of right upper leg and stated what muscle is this really hurts. This RN assessed leg, which was negative. Pt. asked if she ordered her meal- she denied. This RN assisted her with ordering her meal. Pt concerned about diarrhea returning. This RN notified patient that her diet can help with her bowels- notified of low gastric stimulus diet- information given from [employer]. notified that order was not placed for this diet from doctor but that it will help if she is having difficulty with bowels at home. Understanding verbalized. Pt. assisted with preparing for discharge and rode scooter from unit with no distress noted.
== END 2017-11-20 15:34 | disposition home or self-care (01) ==
LOC: ED 19:59 → MS3 20:11
PROVIDERS: Family Medicine; Admitting Provider Family Medicine; Emergency Provider Emergency Medicine; Family Provider Internal Medicine; PCP Internal Medicine; Visit Provider Student in an Organized Health Care Education/Training Program
DX: K52.9 Noninfective gastroenteritis and colitis, unspecified (principal); E66.01 Morbid (severe) obesity due to excess calories; Z68.41 Body mass index [BMI] 40.0-44.9, adult; Z71.3 Dietary counseling and surveillance; J44.9 Chronic obstructive pulmonary disease, unspecified; K76.0 Fatty (change of) liver, not elsewhere classified; K21.9 Gastro-esophageal reflux disease without esophagitis; E03.9 Hypothyroidism, unspecified; E78.5 Hyperlipidemia, unspecified; C85.90 Non-Hodgkin lymphoma, unspecified, unspecified site; I11.0 Hypertensive heart disease with heart failure; I50.9 Heart failure, unspecified; Z99.81 Dependence on supplemental oxygen; Z79.899 Other long term (current) drug therapy; F41.9 Anxiety disorder, unspecified; F32.9 Major depressive disorder, single episode, unspecified; Z79.4 Long term (current) use of insulin; G47.33 Obstructive sleep apnea (adult) (pediatric); K58.0 Irritable bowel syndrome with diarrhea; Z87.891 Personal history of nicotine dependence; J96.11 Chronic respiratory failure with hypoxia; E87.6 Hypokalemia
CPT/HCPCS: 74176; 80048; 80053; 82962; 83036; 83605; 83630; 83690; 83735; 84100; 84439; 84443; 85025; 87177; 87209; 87493; 87506; 94002; 94003; 94640; 96361; 96372; 96374; 96375; 96376; 97162; 97165; 97530; 99218; 99281; J7030; A4216; G0378; J2405

== ENCOUNTER → 2017-12-24 15:54 | Outpatient (CLI) | payer MEDICARE, MEDICAID, SELFPAY | PROVIDERS: Family Provider Internal Medicine; PCP Internal Medicine; Referring Provider Otolaryngology Otolaryngology/Facial Plastic Surgery; Visit Provider Otolaryngology Otolaryngology/Facial Plastic Surgery | DX: J32.9 Chronic sinusitis, unspecified (principal); J02.9 Acute pharyngitis, unspecified | CPT/HCPCS: 87070; 87205 ==

== ENCOUNTER → 2018-01-13 15:42 | Outpatient (CLI) | payer MEDICARE, MEDICAID, SELFPAY | PROVIDERS: Family Provider Internal Medicine; PCP Internal Medicine; Referring Provider Otolaryngology Otolaryngology/Facial Plastic Surgery; Visit Provider Otolaryngology Otolaryngology/Facial Plastic Surgery | DX: J34.89 Other specified disorders of nose and nasal sinuses (principal) | CPT/HCPCS: 87070; 87205 ==

== ENCOUNTER → 2018-02-20 14:12 | Outpatient (CLI) | payer MEDICARE, MEDICAID, SELFPAY ==
[2017-12-18 10:57] VITALS: BMI 43.8
--- NOTE | 2018-02-20 14:17 | RAD_ITS ---
STUDY: X-RAY - LUMBAR SPINE REASON FOR EXAM: Female, 72 years old. Chronic pain TECHNIQUE: 5 view(s) of the lumbar spine were obtained. COMPARISON: 07/29/2014 FINDINGS: There is straightening of the normal lumbar lordosis. There is no substantial scoliosis. There is a normal alignment of the vertebrae. There is diffuse demineralization with multi-level endplate spondylosis. There is loss of disc space at multiple lumbar levels but most conspicuous at L3-L4. There is no demonstrated fracture. There is no demonstrated spondylolysis of the pars interarticulares. Moderate facet arthropathy at L4-L5 and L5-S1. There is atherosclerotic calcification of the abdominal aorta without a demonstrated aneurysm. RAD/Lumbar Spine 2 or 3 Views IMPRESSION: Degenerative disc disease and facet arthropathy, worse since 2014. Electronically Signed: Luis Stinosn MD at 11:56 EST , Service support ,
--- NOTE | 2018-02-20 14:17 | RAD_ITS ---
STUDY: X-RAY - RIGHT HIP REASON FOR EXAM: Female, 72 years old. Chronic right hip pain TECHNIQUE: 2 views of the hip. AP pelvis COMPARISON: None. FINDINGS: There are osteoarthritic changes of the femoral head with marginal osteophyte formation. There is osteoarthritic spur formation and subchondral sclerosis of the acetabular rim. There is severe articular joint space narrowing. Left hip also demonstrates degenerative narrowing with marginal spur formation, albeit less than the right side. The pelvic ring is intact without evidence of acute or healing fracture. Pubic symphysis and sacroiliac joints are normal. RAD/HIP, UNI W/ Pelvis 2-3 Views IMPRESSION: 1. Severe right hip osteoarthrosis, worse since the prior study. 2. Mildly worse left hip osteoarthrosis since prior study. Electronically Signed: Luis Stinson MD at 11:58 EST , Service support ,
--- OUTSIDE RECORDS SUMMARY | 2018-04-08 11:25 | XMS RPT_ITS ---
:1945 Author Organization [place] Support Name Relationship Address Phone GRIFFIN MEJIAA Unavailable Unavailable + [address] Unavailable [address]available + [facility] Unavailable Unavailable Unavailable KIRSTEN MEJIANDA Unavailable Unavailable + [address] Unavailable Unavailable + [place] R Unavailable Unavailable Unavailable KIRSTEN MEJIANDA Unavailable Unavailable + [address] Unavailable Unavailable + [place] R Unavailable Unavailable Unavailable MAUREEN KAVEH Unavailable Unavailable + R Unavailable Unavailable Unavailable ALFREDO BARROW Unavailable Unavailable + JILLIAN MOYER Unavailable [address] + [place] [address] JILLIAN MOYER Unavailable [address] + [place] [address] KAVEH REDDY Unavailable Unavailable + R Unavailable Unavailable Unavailable ALFREDO BARROW Unavailable Unavailable + JILLIAN MOYER Unavailable [address] + [place] [address] JILLIAN MOYER Unavailable [address] + [place] [address] MAUREEN KAVEH Unavailable Unavailable + R Unavailable Unavailable Unavailable ALFREDO BARROW Unavailable Unavailable + KAVEH REDDY Unavailable . + [place] [address] R Unavailable Unavailable Unavailable ALFREDO BARROW Unavailable . + [place] [address] KAVEH REDDY Unavailable Unavailable + R Unavailable Unavailable Unavailable ALFREDO BARROW Unavailable Unavailable + Roberto, Adin Unavailable [address] + [place] [address] R Unavailable Unavailable Unavailable [place], Adin Unavailable [address] + [place] [address] R Unavailable Unavailable Unavailable JILLIAN MOYER Unavailable [address] + [place] [address] ERNESTO, JILLIAN Unavailable [address] + [place] [address] ROBERTO, ADIN Unavailable [address] + [place] [address] R Unavailable Unavailable Unavailable ROBERTO, ADIN Unavailable [address] + [place] [address] R Unavailable Unavailable Unavailable ROBERTO, ADIN Unavailable [address] + [place] [address] R Unavailable Unavailable Unavailable ROBERTO, ADIN Unavailable [address] + [place] [address] R Unavailable Unavailable Unavailable ROBERTO, ADIN Unavailable Unavailable + ROBERTO, ADIN Unavailable [address] + [place] [address] R Unavailable Unavailable Unavailable ROBERTO, ADIN Unavailable Unavailable + ROBERTO, ADIN Unavailable Unavailable + ROBERTO, ADIN Unavailable Unavailable + ROBERTO, ADIN Unavailable [address] [phone] [place] [address] R Unavailable Unavailable Unavailable ROBERTO, ADIN Unavailable Unavailable + ROBERTO, ADIN Unavailable Unavailable + ROBERTO, ADIN Unavailable [address] [phone] [place] [address] R Unavailable Unavailable Unavailable ROBERTO, ADIN Unavailable [address] [phone] [place] [address] R Unavailable Unavailable Unavailable ROBERTO, ADIN Unavailable [address] [phone] [place] [address] R Unavailable Unavailable Unavailable ROBERTO, ADIN Unavailable [address] [phone] [place] [address] R Unavailable Unavailable Unavailable SANTHOSH, ADIN Unavailable Unavailable + Care Team Providers Name Role Phone CHASITY PATTERSON III Attending Unavailable CHASITY PATTERSON III Referring Unavailable LUCY VINSON (MADAN) Attending Unavailable SARKIS ABRAHAM Referring Unavailable SENA, TIA B Referring Unavailable TALAMPAS, JESUS D Attending Unavailable RIGOBERTO BAUER Attending Unavailable RIGOBERTO BAUER Referring Unavailable LUCY VINSON (MADAN) Attending Unavailable SARKIS ABRAHAM Referring Unavailable LUCY VINSON (PA) Referring Unavailable JUAN A HINSON (NETWORK CONTRACTOR) Attending Unavailable RIGOBERTO BAUER T Referring Unavailable MARK RIGOBERTO T Referring Unavailable MARK RIGOBERTO T Referring Unavailable MARK RIGOBERTO T Attending Unavailable TALAMPAS, JESUS D Referring Unavailable LUCY VINSON (MADAN) Attending Unavailable SENA, TIA B Referring Unavailable SENA, TIA B Attending Unavailable TALAMPAS, JESUS D Referring Unavailable SENA, TIA B Referring Unavailable LARA HINSONI (NETWORK CONTRACTOR) Attending Unavailable LUCY VINSON (MADAN) Attending Unavailable TALAMPAS, JESUS D Referring Unavailable SENA, TIA B Referring Unavailable MADISYN LUNDBERG (HOME FIRE ALARM INSTALLER) Attending Unavailable TALAMPAS, JESUS D Referring Unavailable SENA, TIA B Referring Unavailable TALAMPAS, JESUS D Attending Unavailable LUCY VINSON (MADAN) Attending Unavailable SARKIS ABRAHAM Referring Unavailable ALIZE SIDDIQUI (HOME FIRE ALARM INSTALLER) Attending Unavailable SENA, TIA B Referring Unavailable GAMALIEL SCOTT Attending Unavailable GAMALIEL SCOTT Referring Unavailable GAMALIEL SCOTT Referring Unavailable SENA, TIA B Attending Unavailable TALAMPAS, JESUS D Referring Unavailable JUAN VINSONFER (PA) Referring Unavailable SARKIS ABRAHAM Attending Unavailable ALISSON, LUCY (PA) Referring Unavailable SONIA, GAMALIEL E Referring Unavailable SONIA, GAMALIEL E Referring Unavailable SONIA, GAMALIEL E Referring Unavailable SONIA, GAMALIEL E Referring Unavailable SONIA, GAMALIEL E Referring Unavailable ANGELLA MCARTHUR (HOME FIRE ALARM INSTALLER) Attending Unavailable ALISSON, LUCY (PA) Referring Unavailable TALAMPAS, JESUS D Attending Unavailable TALAMPAS, JESUS D Referring Unavailable MARK, RIGOBERTO T Referring Unavailable MARK, RIGOBERTO T Referring Unavailable MARK, RIGOBERTO T Attending Unavailable MARK, RIGOBERTO T Referring Unavailable CHRISTIANO, LAPMAN Referring Unavailable CHRISTIANO, LAPMAN Attending Unavailable CHRISTIANO, LAPMAN Referring Unavailable CHRISTIANO, LAPMAN Referring Unavailable ALISSON, LUCY (PA) Attending Unavailable SONIA, GAMALIEL E Attending Unavailable SONIA, GAMALIEL E Referring Unavailable SONIA, GAMALIEL E Referring Unavailable TALAMPAS, JESUS D Referring Unavailable JUAN A HINSON (NETWORK CONTRACTOR) Attending Unavailable TALAMPAS, JESUS D Attending Unavailable TALAMPAS, JESUS D Referring Unavailable TALAMPAS , DR. LEE Primary Care Unavailable BREANN ARAGON, . TIERNEY Tompkins Admitting Unavailable BREANN ARAGON MD. TIERNEY Tompkins Attending Unavailable KATARZYNA RED Attending Unavailable AJIT ARAGON, DR. LEE Primary Care Unavailable YOANDY LOWRY MD Attending Unavailable AJIT ARAGON, DR. LEE Primary Care Unavailable Creasasylvia, Dr. Cristian Maria Admitting Unavailable Creasap, Dr. Cristian Maria Attending Unavailable Creasap, Dr. Cristian Maria Admitting Unavailable Creasap, Dr. Cristian Maria Attending Unavailable [place], Dr. Cesar Francisco Attending Unavailable Jm, Dr. Cesar Francisco Admitting Unavailable Susi, Dr. Matt Degroot Admitting Unavailable Susi, Dr. Matt Degroot Attending Unavailable Susi, Dr. Matt Degroot Admitting Unavailable Susi, Dr. Matt Degroot Attending Unavailable Augustus, Dr. Osbaldo Kuo Admitting Unavailable Augustus, Dr. Osbaldo Kuo Attending Unavailable CLINFATOU MONREAL L Attending Unavailable TALAMPAS, JESUS Referring Unavailable SIA BARAJAS Attending Unavailable MOSHE PEDROZA Attending Unavailable CLINKER, FATOU Ariana Attending Unavailable TALAMPAS, JESUS Referring Unavailable LEI LIN Attending Unavailable TALAMPAS, JESUS Referring Unavailable LUCY VINSON Attending Unavailable LUCY VINSON Referring Unavailable OCTAVIO CAI Attending Unavailable SYSTEM, PROVIDER NOT IN Attending Unavailable SYSTEM, PROVIDER NOT IN Referring Unavailable WILMER, CARLOS Attending Unavailable LEYVA, TRUDY Gaviria Referring Unavailable SELF, SELF Referring Unavailable CHINO RENDON Attending Unavailable CLINKER, FATOU L Attending Unavailable CLINKER, FATOU L Referring Unavailable KALAPODIS, CARLOS Attending Unavailable Talampas, Jesus Primary Care Unavailable Elmer Bledsoe Attending Unavailable Rashi Lee Attending Unavailable JesusRashi Referring Unavailable Talampas, Jesus Primary Care Unavailable Thania Castro Attending Unavailable Thania Castro Attending Unavailable Meenakshi Jose Attending Unavailable Talampas, Jesus Primary Care Unavailable Aaron Dumont Attending Unavailable Paula Sutton Attending Unavailable Talampas, Jesus Referring Unavailable Talampas, Jesus Primary Care Unavailable Bettye Collazo Attending Unavailable Talampas, Jesus Referring Unavailable Talampas, Jesus Primary Care Unavailable Elmer Bledsoe Attending Unavailable Talampas, Jesus Primary Care Unavailable Harley, Dano Admitting Unavailable Koram, Lubna Nancy Attending Unavailable Harley, Dano Admitting Unavailable Milagros Muñoz Attending Unavailable Talampas, Jesus Primary Care Unavailable Harley, Dano Consulting Unavailable Harley, Dano Admitting Unavailable Koram, Lubna Nancy Attending Unavailable Talampas, Jesus Primary Care Unavailable Koram, Lubna Nancy Consulting Unavailable Harley, Dano Admitting Unavailable Koram, Lubna Nancy Attending Unavailable Talampas, Jesus Primary Care Unavailable Koram, Lubna Nancy Consulting Unavailable Mehdi Lundy Attending Unavailable Kamron, Mehdi Attending Unavailable Mehdi Lundy Attending Unavailable Jon Bush Attending Unavailable Talampas, Jesus Referring Unavailable Kaveh Forbes Attending Unavailable Kaveh Forbes Referring Unavailable Talampas, Jesus Primary Care Unavailable Kaveh Forbes Attending Unavailable Kaveh Forbes Referring Unavailable Talampas, Jesus Primary Care Unavailable Prebish, Nadiya MASSAGE THERAPIST-C Attending Unavailable Prebish, Nadiya MASSAGE THERAPIST-C Referring Unavailable Talampas, Jesus Primary Care Unavailable GUILLERMINA SILVA Attending Unavailable ANICETO, TAMMIE Primary Care Unavailable PROBLEMS PROBLEMS DATE TYPE CONDITION / CODE ATTENDING STATUS SOURCE 02/21/2018 Admitting Pain in right hip / CLINKER, FATOU Active [facility] M25.551(ICD-10) [place] 02/21/2018 Admitting Pain in left hip / CLINKER, FATOU Active [facility] M25.552(ICD-10) [place] 02/21/2018 Admitting Other intervertebral CLINKER, FATOUJK-Group Diagnosis disc degeneration, [place]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 / Repository M51.36(ICD-10) 02/21/2018 Admitting 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, 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, Repository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 / M47.816(ICD-10) 02/21/2018 Admitting Chronic pain CLINKER, uMentioned Diagnosis syndrome / [place] G89.4(ICD-10) Repository 02/21/2018 Admitting Encounter for CLINKER, FATOU Active [facility] therapeutic drug L [place] level monitoring / Repository Z51.81(ICD-10) 02/21/2018 Admitting Myalgia, other site CLINKER, uMentioned Diagnosis / M79.18(ICD-10) [place] 02/20/2018 Unknown M25.551 - Pain in Prebish, Nadiya Active [facility] right hip / MASSAGE THERAPIST-C Community M25.551(ICD-10) Hospital Repository 02/12/2018 Active Type 2 diabetes NA Active [facility] mellitus with other Clinic Main diabetic [place] neurological Repository complication / E11.49(ICD-10) 11/25/2015 Active 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, lymph nodes Clinic Main of multiple sites / [place] C82.08(ICD-10) Repository 02/07/2015 Active Chronic respiratory NA Active [facility] failure with hypoxia Clinic Main / J96.11(ICD-10) [place] Repository 02/07/2015 Active Chronic respiratory NA Active [facility] failure with Clinic Main hypercapnia / [place] J96.12(ICD-10) Repository 12/25/2016 Active 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 / [place] Z85.72(ICD-10) Repository 12/24/2016 Active Gastric ulcer, NA Active [facility] unspecified as acute Clinic Main or chronic, without [place] hemorrhage or Repository perforation / K25.9(ICD-10) 12/18/2017 Unknown R32 - Unspecified [place], Active [place] urinary incontinence [facility] / R32(ICD-10) Hospital Repository 12/18/2017 Unknown N81.9 - Female [place], Active [place] genital prolapse, [facility] unspecified / Hospital N81.9(ICD-10) Repository 05/21/2011 Active Other nonspecific NA [facility] abnormal finding of Clinic Main lung field / [place] R91.8(ICD-10) Repository 11/06/2017 Working Contusion of left KALAPODIS, Active [facility] Diagnosis knee, initial CARLOS [place] encounter / Repository S80.02XA(ICD-10) 10/25/2017 Active Pulmonary NA [facility] hypertension, Clinic Main unspecified / [place] I27.20(ICD-10) Repository 11/01/2017 Active Chronic obstructive NA [facility] pulmonary disease, Clinic Main unspecified / [place] J44.9(ICD-10) Repository 01/06/2015 Active Essential (primary) NA [facility] hypertension / Clinic Main I10(ICD-10) [place] Repository 07/16/2017 Admitting Other forms of NA [facility] Diagnosis dyspnea / [place] R06.09(ICD-10) Repository 07/16/2017 Admitting Iron deficiency NA Active [facility] Diagnosis anemia, unspecified [place] / D50.9(ICD-10) Repository 07/16/2017 Admitting Other secondary NA [facility] Diagnosis hypertension / [place] I15.8(ICD-10) Repository 07/16/2017 Admitting Candidiasis of skin NA [facility] Diagnosis and nail / [place] B37.2(ICD-10) Repository 06/26/2017 Admitting Dysphagia, NA Active [facility] Diagnosis pharyngeal phase / [place] R13.13(ICD-10) Repository 05/26/2016 Active Unspecified lump in NA [facility] unspecified breast / Clinic Main N63.0(ICD-10) [place] Repository 06/25/2017 Active Left upper quadrant [facility] abdominal swelling, Clinic Main mass and lump / [place] R19.02(ICD-10) Repository 06/25/2017 Active Mastodynia / Active [facility] N64.4(ICD-10) Clinic Main [place] Repository 06/19/2017 Admitting Lumbago with AYALA, Active [facility] Diagnosis sciatica, OCTAVIO Kuo System [place] unspecified side / Repository M54.40(ICD-10) 06/19/2017 Admitting Other chronic pain / AYALA, [facility] G89.29(ICD-10) OCTAVIO J [place] Repository 06/19/2017 Admitting Dysphagia, SYSTEM, Active [facility] Diagnosis unspecified / PROVIDER NOT System [place] R13.10(ICD-10) [place] Repository 06/13/2017 Admitting Radiculopathy, FANELLO, GUILLERMINA Active [facility] diagnosis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 / [facility] M54.16(ICD-10) Repository 05/24/2011 Active Dependence on Active [facility] supplemental oxygen Clinic Main / Z99.81(ICD-10) [place] Repository 06/07/2017 Active Emphysema, NA [facility] unspecified / Clinic Main J43.9(ICD-10) [place] Repository 05/26/2017 Admitting Esophagitis, KALAPODIS, Active [facility] Diagnosis unspecified / CARLOS [place] K20.9(ICD-10) Repository 05/08/2017 Admitting [place] / 258201() ARNCAMILO CHINO [facility] [place] Rep[place] 05/08/2017 Admitting Breast Problem / ARNOLD CHINO Active [facility] [employer] [facility] Diagnosis 16() [place] ([place] Repository 05/05/2017 Admitting Chronic obstructive [place], Active [facility] Diagnosis pulmonary disease, SIA E System [place] unspecified (HCC) / Repository J44.9(ICD-10) 05/05/2017 Admitting Acute bronchitis, TURTON, Active [facility] Diagnosis unspecified / SIA E System [place] J20.9(ICD-10) Repository 04/11/2017 Active Unknown / ALISSON, Active [facility] UNK(Unknown) LUCY (MADAN) Clinic Main [place] Repository 04/08/2017 Active Iron deficiency NA Active [facility] anemia, unspecified Clinic Main / D50.9(ICD-10) [place] Repository 04/08/2017 Active Hemorrhage of anus NA Active [facility] and rectum / Clinic Main K62.5(ICD-10) [place] Repository 04/08/2017 Active Diverticulosis of NA Active [facility] large intestine Clinic Main without perforation [place] or abscess with Repository bleeding / K57.31(ICD-10) 04/04/2017 Admitting Diverticulitis of MOSHE PEDROZA Active [facility] Diagnosis large intestine G System [place] without perforation Repository or abscess with bleeding / K57.33(ICD-10) PROCEDURES PROCEDURES No Procedure Records FoundRESULTS RESULTS DISCHARGE INSTRUCTION Observed: 03/31/2018 Status: F Source: [place] 3:25 PM [facility] REPOSITORY [facility] Medical Records Department [address] [place] [address] Discharge Instruction 03/31/18 1525 MR#: [id number] Acct: [id number] Name: DAMION MOYER Rep #: [id number] : 1945 72 From: Aaron Dumont MD PCP: Jesus Fong MD Status: REG ER ED Disposition - Plan for ED Patient: Disposition: Home or Assisted Living Chief Complaint: Weakness Instructions: ED Weakness [facility] Referrals: Jesus Fong MD [Primary Care Provider] - What to do if you have Problems For any increased pain, shortness of breath, bleeding, nausea or vomiting, chest pain, or any unexpected problems, contact your Primary Care Provider. Call [facility] ([phone]) or report to the closest Emergency Room. Call 911 if necessary. 03/31/18 152 <Electronically signed by Aaron Dumont MD> Date Aaron Dumont MD Cosigner Signature (If Indicated): Date CC: Jesus Fong MD EMERGENCY DEPARTMENT Observed: 03/31/2018 Status: F Source: [place] SUMMARY 3:24 PM [facility] REPOSITORY [facility] Medical Records Department [address] [place] [address] Emergency Department Summary 03/31/18 1310 MR#: [id number] Acct: [id number] Name: DAMION MOYER Rep #: [id number] : 1945 72 From: Aaron Dumont MD PCP: Jesus Fong MD Status: REG ER - ER Visit Summary Date of Service: 03/31/18 Chief Complaint: Generalized weakness, leg swelling History of Present Illness: The patient is a 72 F who has had generalized weakness and bilateral leg swelling for the past 3 days. She feels weak overall. No slurred speech or facial droop. She has not fallen at home. She is not sure if she has had a fever. She admits to a cough but denies dysuria. She has been eating and drinking okay but she feels like her mouth is dry. She takes for water pills a day, 2 in the morning and 2 at night. She denies any chest pain. She lives by herself. She also admits to having diarrhea every time she eats. Physical Examination: Vital signs reviewed. HEENT exam unremarkable. Heart is regular rate and rhythm without murmurs. Lungs are clear to auscultation. Abdomen is soft left sided tenderness to palpation. Extremities reveal no edema. Skin exam normal. Neurologic exam shows diffuse overall weakness with no lateralizing symptoms. Test Results: Laboratory studies show a potassium of 3. Alk phos 147. BNP 96. Chest x-ray reveals some vascular congestion. CT abdomen pelvis reveals adrenal hyperplasia with no other acute findings. Emergency Department Course and Treatment: Patient was able to walk with a walker which she does at home. She ambulated into the hallway with this. She does have right hip pain which is chronic she gets injections by Dr. Brice. At this point I do not feel she requires admission as I do not have any acute findings for her to be admitted to the hospital. I will give her an extra dose of Lasix to see if this will help with her lower extremity edema. She is educated on using compression stockings and elevating her feet. She does live by herself but she has a home health aide that comes to her house every day. She will need to call her PCP for follow-up. She will continue all her home medications Treatment Plan: [] Disposition: Discharge Impression: Generalized weakness This note was generated with [employer] software. It may contain incorrect words, spelling, and punctuation that were not noted in review of the chart prior to signing ED Disposition - Plan for ED Patient: Chief Complaint: Weakness Referrals: Jesus Fong MD [Primary Care Provider] - What to do if you have Problems For any increased pain, shortness of breath, bleeding, nausea or vomiting, chest pain, or any unexpected problems, contact your Primary Care Provider. Call [facility] ([phone]) or report to the closest Emergency Room. Call 911 if necessary. 03/31/18 1524 <Electronically signed by Aaron Dumont MD> Date Aaron Dumont MD Cosigner Signature (If Indicated): Date CC: Jesus Fong MD URINALYSIS, COMPLETE Collected: 03/31/2018 Status: F Source: [place] 1:16 PM [facility] REPOSITORY Order Comment: Order Date: 03/31/18 How was Urine Obtained? CLEAN CATCH TYPE CODE TESTS RESULT OUT OF RANGE REFERENCE UNITS LAB L400.3000 Yellow COLOR Normal Yellow LAB L400.3050 Clear Normal CLARITY Sl. Cloudy LAB L400.3200 Normal mg/dl Normal GLUCOSE, UR Normal LAB L400.3300 Negative mg/dL Normal BILIRUBIN URINE Negative LAB L400.3400 Negative mg/dl Normal KETONE UR Negative LAB L400.3465 1.002-1.030 Normal SP.GR. DIPSTX 1.010 LAB L400.3550 5.0 - 8.0 pH UR Normal 7.0 LAB L400.3600 Negative mg/dl High PROT 30 DIPSTX LAB L400.3700 Normal mg/dl Normal UROBILI Normal LAB L400.3750 Negative Normal NITRITE UR Negative LAB L400.3780 Negative /ul Normal OCCULT BLOOD-UR Negative LAB L400.3800 Negative /ul LEUK Normal ESTERASE Negative LAB L400.4050 0-5 /hpf WBC 0 Normal SEEN LAB L400.4100 0-5 /hpf 0 Normal RBC-UA SEEN LAB L400.4150 5-10 /hpf SQUAM Normal EPI 0-5 SEEN LAB L400.4300 None Seen /hpf 0 Normal BACTERIA SEEN LAB L400.4350 <or=2+ /hpf 0 Normal MUCUS, URINE SEEN Performed By: #### L400.0001 #### [facility] [address] [place], [address] CBC W/DIFF, AUTOMATED Collected: 03/31/2018 Status: F Source: [place] 1:16 PM [facility] REPOSITORY TYPE CODE TESTS RESULT OUT OF RANGE REFERENCE UNITS LAB L100.1000 4.4-11.0 K/mm3 Normal WBC 7.8 LAB L100.1200 4.2-5.4 M/mm3 Normal RBC 4.29 LAB L100.1300 12.0-15.0 g/dl Normal HGB 12.5 LAB L100.1400 37-47 % Normal HCT 39.1 LAB L100.1500 81-99 fL Normal MCV 91.1 LAB L100.1600 27.0-32.0 pg Normal MCH 29.1 LAB L100.1700 32-36 g/gl Normal MCHC 32.0 LAB L100.1810 11.6-14.6 % High RDW CV 15.2 LAB L100.1820 35.1-43.9 fl High RDW SD 49.8 LAB L100.1900 150-450 K/mm3 Normal PLT 210 LAB L100.2000 6.2-12.0 fl Normal MPV 10.1 LAB L100.2100 47-70 % High NEUT% 78.6 LAB L100.2200 19-41 % Low LY% 13.7 LAB L100.2300 0-10 % Normal MONO% 5.6 LAB L100.2400 0-5 % Normal EO% 1.2 LAB L100.2500 0-1 % Normal BASO% 0.1 LAB L100.2550 0.0-0.9 % Normal IM GRAN % 0.800 Result Comment: IG% - Immature Granulocytes (promyelocytes, myelocytes and metamyelocytes) > 1% indicates that a LEFT SHIFT is Present. LAB L100.2620 2.0-7.7 X10 3/uL Normal Absolute Neut 6.2 LAB L100.2720 0.83-4.51 X10 3/ul Normal Absolute Lymph 1.07 Performed By: #### L100.0100 #### [facility] [address] [place], [place], [address] COMPREHENSIVE METABOLIC Collected: 03/31/2018 Status: F Source: [place] [facility] 1:16 PM [facility] REPOSITORY TYPE CODE TESTS RESULT OUT OF RANGE REFERENCE UNITS LAB L501.0100 74-106 mg/dL High GLU 172 Result Comment: Fasting Glucose result greater than or equal to 126 mg/dL suggests DIABETES MELLITUS per A.D.A. criteria. Please note revised GLUCOSE reference range effective 2017. LAB L501.1000 7-18 mg/dL Normal BUN 11 LAB L501.1100 0.55-1.02 mg/dL Normal CREAT,SERUM 0.62 Result Comment: The validity of the calculated GFR AND GFRAA in patients over 70 years has not been determined. Clinical correlation is essential. LAB L501.1110 >60 mL/min Normal EST GFR 101 Result Comment: Non- GFR Calc LAB L501.1115 >60 mL/min Normal EST GFR - AA 122 Result Comment: GFR Calc LAB L501.1255 ml/min Normal Estimated CRCL 38.94 LAB L501.1300 10-20 RATIO Normal BUN/CRE 17.8 LAB L501.1500 6.4-8. g/dL Normal 2 T PROT 7.1 LAB L501.1800 3.2-5. g/dL Normal 0 ALB 3.3 LAB L501.1950 2.2-4. g/dL Normal 2 GLOB 3.8 LAB L501.2000 0.9-2. RATIO Normal 4 A/G 0.9 LAB L501.2200 8.5-10 mg/dL Normal .1 CA 8.5 LAB L501.4100 15-37 U/L Normal AST 24 LAB L501.4305 45-117 U/L High ALK P 147 LAB L501.4405 13-56 U/L Normal ALT 29 LAB L501.4600 0.20-1 mg/dL Normal .00 T BILI 0.80 LAB L501.5300 136-14 mmol/L Normal 5 NA 143 LAB L501.5600 3.5-5. mmol/L Low 1 K 3.0 LAB L501.5900 98-107 mmol/L Normal CL 102 LAB L501.6100 21.0-3 mmol/L High 2.0 CO2 34.0 LAB L501.6200 5-15 Normal GAP 7 Performed By: #### L500.4050, L501.2450 #### [facility] [address] [place], [address] LIPASE Collected: 03/31/2018 Status: F Source: [place] 1:16 PM [facility] REPOSITORY TYPE CODE TESTS RESULT OUT OF RANGE REFERENCE UNITS LAB L501.2450 73-393 U/L Normal LIPASE 247 Performed By: #### L500.4050, L501.2450 #### [facility] [address] [place], [address] BNP,B-TYPE NATRIURETIC Collected: 03/31/2018 Status: F Source: [place] PEPTIDE 1:16 PM [facility] REPOSITORY TYPE CODE TESTS RESULT OUT OF RANGE REFERENCE UNITS LAB L503.6620 0-100 pg/mL Normal B-TYPE 96.5 JESSI PEP Performed By: #### L503.6620 #### [facility] [address] [place], [address] CHEST 1 VIEW Observed: 03/31/2018 Status: F Source: [place] (PORTABLE) 12:46 PM [facility] REPOSITORY [facility] Imaging Services [address] [place] [address] Chest 1 View (Portable) MR#: [id number] Acct: [id number] Name: DAMION MOYER Rep #: [id number] : 1945 F 72 From: Raghu Arnett MD PCP: Jesus Fong MD Status: REG ER Study: Chest 1 View (Portable) Date of Exam: 03/31/18 Exam# [id number] Ordering Dr: Aaron Dumont MD STUDY: X-RAY CHEST REASON FOR EXAM: Female, 72 years old.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 Est. Average Glucose 137 Result Comment: eAG: (Estimated average glucose) is a calculated value from HgbA1c and is senior human resources representative of the average blood glucose level in the last 2-3 month period. Performed By: #### HBA1C #### [facility] [address] [place], [place] [address] PROGRESS Observed: 01/28/2018 Status: COMPLETED Source: [place] 2:19 PM [facility] REPOSITORY HNO ID: [id number] Author: Gamaliel Scott Service: (none) Author Type: Physician Type: Progress Notes Filed: 01/28/2018 3:18 PM Note Text: PERTINENT CARDIAC HISTORY Pulmonary hypertension Aortic stenosis HTN HL DM Obesity SCOTTY - BiPAP ADHERENCE TO GUIDELINES LIZ-I or ARB for HF with prior LVEF<40 (NQF 0081) - N/A ASA or Plavix for ASHD (NQF 0067) - N/A Beta jensen for ASHD with prior CT or prior LVEF<40 (NQF 0070) - N/A Beta jensen for HF with prior LVEF<40 (NQF 0083) - N/A LIZ-I or ARB for ASHD with DM or prior LVEF<40 (NQF 0066) - met Statin therapy for ASHD or FHL or DM - met BMI documented and plan if >25 (NQF 0421) - lifestyle recommendation form Tobacco use screening and referral (NQF 0028) - lifestyle recommendation form Recommendation for whole food, plant based diet - lifestyle recommendation form CLINICAL IMPRESSION/PLAN: Damion Moyer is clinically stable. There is some mild progression of her aortic valve disease. She also has diastolic dysfunction. Fortunately, her pulmonary pressures have decreased. Aldactone should be helpful for control of her blood pressure. We will check basic profile today. We will continue beta jensen therapy at the present time, given her tendency towards hyperdynamic LV outflow tract obstruction. If she fails to tolerate this or needs better blood pressure control, a change to carvedilol may be helpful. I'll see her in 4 months or as needed. Written and verbal health teaching given to patient, patient verbalizes understanding and agrees with treatment plan. DIAGNOSIS FOR VISIT: Pulmonary hypertension Aortic valve disease HISTORY OF PRESENT ILLNESS Damion Moyer returns for follow-up of multiple cardiac issues, as noted above. She reports stable, but very limited exercise tolerance. She's had no recent chest discomfort. She denies orthopnea. Her edema has been stable. She's had no syncope, TIAs, amaurosis or claudication. She's had rare palpitations. She was recently started on Aldactone for better blood pressure and edema control. Her potassium was decreased ALLERGIES: ALLERGIES Allergen Reactions - Augmentin [Amoxicil* Hives - Bactrim [Sulfametho* Hives - Iodinated Contrast-* Anaphylaxis CT scan dye - Antihistamines Mental Status Change Sleepy, disoriented. - Flagyl [Metronidazo* Hives - Latex Rash NO dyspnea or wheeze. - Benadryl [Diphenhyd* Other: See Comments Diaphoresis, nausea, tremor, akisthesia. - Phenergan [Prometha* Intolerance Tired, nausea - Adhesive Rash, Itching CURRENT OUTPATIENT MEDICATIONS: ketoconazole (NIZORAL) 2 % shampoo Cleanse scalp qod-qday X 2-4 weeks,then can taper to weekly as able when rash better;also tx groin area with cleansing as directed spironolactone (ALDACTONE) 25 mg tablet Take 1 tablet by mouth twice daily. potassium chloride (K-TAB) 10 mEq tablet Take 1 tablet by mouth twice daily. acetaminophen (TYLENOL) 500 mg tablet Take 1,000 mg by mouth every 8 hours as needed. guaiFENesin (HUMIBID E) 400 mg tab Take 400 mg by mouth twice daily. mupirocin (BACTROBAN) 2 % ointment Apply 1 application to affected area. Apply small amt to affected area twice daily (for bump in nose) insulin aspart (NOVOLOG) 100 unit/mL inpn Inject subcutaneously. Inject 8 units before breakfast, 8 units before lunch, and 12 units before dinner sertraline (ZOLOFT) 100 mg tablet TAKE 2 TABLETS BY MOUTH EACH EVENING AT BEDTIME [START ON 01/31/2018] pregabalin (LYRICA) 50 mg capsule Take 1 capsule by mouth three times daily for 180 days. albuterol HFA (VENTOLIN HFA) 90 mcg/actuation inhaler Inhale 2 Puffs as instructed every 6 hours as needed. furosemide (LASIX) 40 mg tablet Take 2 tablets by mouth twice daily. Take extra 1 to 2 pills daily as directed for fluid retention insulin detemir U-100 (LEVEMIR FLEXPEN) 100 unit/mL (3 mL) inpn injection Take 15 units in the a.m., and 15 units bedtime lidocaine-prilocaine (EMLA) cream Apply 1 application to affected area as needed. APPLY TO AFFECTED AREA AND REMOVE AFTER 4 HOURS. loperamide (IMODIUM) 2 mg cap(s) Take 1 capsule by mouth twice daily as needed. pantoprazole DR (PROTONIX) 40 mg tablet Take 1 tablet by mouth twice daily. nystatin (MYCOSTATIN) cream Apply 1 application to affected area twice daily. To periarea as directed traZODone (DESYREL) 100 mg tablet Take 1.5 tablets by mouth daily at bedtime. montelukast (SINGULAIR) 10 mg tablet Take 1 tablet by mouth once daily. Lancets lancets Test blood sugar(s) 4 times daily and as needed. Dx: Type 2 DM - Controlled E11.9 Insulin: Yes fluticasone furoate (ARNUITY ELLIPTA) 100 mcg/actuation dsdv Inhale 1 Puff as instructed once daily. guaiFENesin 1,200 mg Ta12 TWICE A DAY magnesium oxide (MAGOX) 400 mg tablet Take 400 mg by mouth once daily. acetaminophen (TYLENOL) 500 mg tablet Take 500 mg by mouth twice daily. VICTOZA 2-LIZET 0.6 mg/0.1 mL (18 mg/3 mL) pnij INJECT 1.2MG SUBCUTANEOUSLY ONCE DAILY blood sugar diagnostic (ONETOUCH ULTRA TEST) test strip Test blood sugar(s) 4 times daily and as needed for symptoms of high or low sugars. Dx: Type 2 DM - Controlled E11.9 Insulin: Yes Insulin [place], Disposable, (BD ULTRAFINE III MINI PEN) 31 gauge x 3/16 ndle Use One needle for each dose, 6 times a day (insulin and Victoza) . E11.9 metoprolol succinate ER (TOPROL XL) 50 mg 24 hr tablet Take 1 tablet by mouth twice daily. risperiDONE (RISPERDAL) 0.5 mg tablet Take 1 tablet by mouth twice daily. nystatin (MYCOSTATIN) powder Apply 1 application to affected area four times daily. atorvastatin (LIPITOR) 20 mg tablet Take 1 tablet by mouth daily at bedtime. For cholesterol. lisinopril (ZESTRIL, PRINIVIL) 40 mg tablet Take 1 tablet by mouth once daily. levothyroxine (SYNTHROID) 25 mcg tablet TAKE 1 TABLET BY MOUTH ONCE DAILY. CPAP Mask (per patient preference) optional chin strap (if indicated) , filters, tubing, humidifier and lifetime supplies. Dx G47.33 . Pt needs new supplies. HYDROcodone-acetaminophen (NORCO) 5-325 mg per tablet Take 1 tablet by mouth every 6 hours as needed. metoclopramide HCl (REGLAN) 5 mg tablet TAKE 1 TABLET BY MOUTH THREE TIMES DAILY. Blood-Glucose Meter (ONETOUCH ULTRA2) monitoring kit 1 Each as needed. One Touch Meter Kit Diagnosis: Type 2 DM - Controlled E11.9 azithromycin (ZITHROMAX) 250 mg tablet TAKE 1 TABLET BY MOUTH ONCE DAILY. COMPOUNDED PRESCRIPTION PAP titration sleep study. COMPOUNDED PRESCRIPTION Please provide portable oxygen concentrator. [facility]. umeclidinium-vilanterol (ANORO ELLIPTA) 62.5-25 mcg/actuation inhaler Inhale 1 Inhalation as instructed once daily. fluticasone (FLONASE) 50 mcg/actuation nasal spray Use 2 Sprays in each nostril daily at bedtime. albuterol (PROVENTIL) 2.5 mg /3 mL (0.083 %) nebulizer solution Use 3 mL via nebulizer every 4 hours as needed. OVER 5-15 MINUTES. May take up to every 2 hours during COPD exacerbation. Dx copd J44.9 0.9% NaCl Access implanted vascular access device (IVAD) as needed for flush, blood draw or treatment.Flush IVAD with 10-20 mL NS every 4 weeks and PRN when IVAD not in use. multivitamin tablet Take 1 tablet by mouth once daily. PHYSICAL EXAMINATION: VITAL SIGNS: BP 142/75 Pulse 80 Chest: Breath sounds are diminished. There are scattered rhonchi. There is moderate expiratory prolongation.. Trachea is midline. Air entry is equal. Cardiac: Regular rhythm. S1 and S2 are normal. PMI is nondisplaced. There is a 2/6 aortic stenosis murmur. Carotids are brisk without bruits. JVP is less than 10 cm. Abdomen: Soft and nontender. There are no pulsatile masses or bruits. No liver enlargement. Bowel sounds are active. Extremities: 2 plus soft pitting ankle edema. Pulses are intact and symmetrical. Recent labs were reviewed. Renal function is normal. Potassium was borderline low. Recent stress test showed no evidence of ischemia. Ejection fraction is normal. Echocardiogram shows preserved LV function. There is moderate aortic stenosis. LVOT velocity was not evaluated on this occasion. RVSP has improved. Electronically Signed: Gamaliel Scott MD January 28, 2018 2:19 PM CC: Jesus Fong MD CNOV Observed: 01/28/2018 Status: COMPLETED Source: [place] 1:45 PM [facility] REPOSITORY Office Visit (CAWSTR) DAMION MOYER ([id number]) 1945 F Date Time Provider Department 01/28/18 1:45 PM GAMALIEL SCOTTWSSERINA During your visit today, we recorded the following information about you: Pulse Blood pressure 80/minute 142/75 Gamaliel Scott MD 01/28/2018 3:18 PM Signed PERTINENT CARDIAC HISTORY Pulmonary hypertension Aortic stenosis HTN HL DM Obesity SCOTTY - BiPAP ADHERENCE TO GUIDELINES LIZ-I or ARB for HF with prior LVEF<40 (NQF 0081) - N/A ASA or Plavix for ASHD (NQF 0067) - N/A Beta jensen for ASHD with prior CT or prior LVEF<40 (NQF 0070) - N/A Beta jensen for HF with prior LVEF<40 (NQF 0083) - N/A LIZ-I or ARB for ASHD with DM or prior LVEF<40 (NQF 0066) - met Statin therapy for ASHD or FHL or DM - met BMI documented and plan if >25 (NQF 0421) - lifestyle recommendation form Tobacco use screening and referral (NQF 0028) - lifestyle recommendation form Recommendation for whole food, plant based diet - lifestyle recommendation form CLINICAL IMPRESSION/PLAN: Damion Moyer is clinically stable. There is some mild progression of her aortic valve disease. She also has diastolic dysfunction. Fortunately, her pulmonary pressures have decreased. Aldactone should be helpful for control of her blood pressure. We will check basic profile today. We will continue beta jensen therapy at the present time, given her tendency towards hyperdynamic LV outflow tract obstruction. If she fails to tolerate this or needs better blood pressure control, a change to carvedilol may be helpful. I'll see her in 4 months or as needed. Written and verbal health teaching given to patient, patient verbalizes understanding and agrees with treatment plan. DIAGNOSIS FOR VISIT: Pulmonary hypertension Aortic valve disease HISTORY OF PRESENT ILLNESS Damion Moyer returns for follow-up of multiple cardiac issues, as noted above. She reports stable, but very limited exercise tolerance. She's had no recent chest discomfort. She denies orthopnea. Her edema has been stable. She's had no syncope, TIAs, amaurosis or claudication. She's had rare palpitations. She was recently started on Aldactone for better blood pressure and edema control. Her potassium was decreased ALLERGIES: ALLERGIES Allergen Reactions - Augmentin [Amoxicil* Hives - Bactrim [Sulfametho* Hives - Iodinated Contrast-* Anaphylaxis CT scan dye - Antihistamines Mental Status Change Sleepy, disoriented. - Flagyl [Metronidazo* Hives - Latex Rash NO dyspnea or wheeze. - Benadryl [Diphenhyd* Other: See Comments Diaphoresis, nausea, tremor, akisthesia. - Phenergan [Prometha* Intolerance Tired, nausea - Adhesive Rash, Itching CURRENT OUTPATIENT MEDICATIONS: ketoconazole (NIZORAL) 2 % shampoo Cleanse scalp qod-qday X 2-4 weeks,then can taper to weekly as able when rash better;also tx groin area with cleansing as directed spironolactone (ALDACTONE) 25 mg tablet Take 1 tablet by mouth twice daily. potassium chloride (K-TAB) 10 mEq tablet Take 1 tablet by mouth twice daily. acetaminophen (TYLENOL) 500 mg tablet Take 1,000 mg by mouth every 8 hours as needed. guaiFENesin (HUMIBID E) 400 mg tab Take 400 mg by mouth twice daily. mupirocin (BACTROBAN) 2 % ointment Apply 1 application to affected area. Apply small amt to affected area twice daily (for bump in nose) insulin aspart (NOVOLOG) 100 unit/mL inpn Inject subcutaneously. Inject 8 units before breakfast, 8 units before lunch, and 12 units before dinner sertraline (ZOLOFT) 100 mg tablet TAKE 2 TABLETS BY MOUTH EACH EVENING AT BEDTIME [START ON 01/31/2018] pregabalin (LYRICA) 50 mg capsule Take 1 capsule by mouth three times daily for 180 days. albuterol HFA (VENTOLIN HFA) 90 mcg/actuation inhaler Inhale 2 Puffs as instructed every 6 hours as needed. furosemide (LASIX) 40 mg tablet Take 2 tablets by mouth twice daily. Take extra 1 to 2 pills daily as directed for fluid retention insulin detemir U-100 (LEVEMIR FLEXPEN) 100 unit/mL (3 mL) inpn injection Take 15 units in the a.m., and 15 units bedtime lidocaine-prilocaine (EMLA) cream Apply 1 application to affected area as needed. APPLY TO AFFECTED AREA AND REMOVE AFTER 4 HOURS. loperamide (IMODIUM) 2 mg cap(s) Take 1 capsule by mouth twice daily as needed. pantoprazole DR (PROTONIX) 40 mg tablet Take 1 tablet by mouth twice daily. nystatin (MYCOSTATIN) cream Apply 1 application to affected area twice daily. To periarea as directed traZODone (DESYREL) 100 mg tablet Take 1.5 tablets by mouth daily at bedtime. montelukast (SINGULAIR) 10 mg tablet Take 1 tablet by mouth once daily. Lancets lancets Test blood sugar(s) 4 times daily and as needed. Dx: Type 2 DM - Controlled E11.9 Insulin: Yes fluticasone furoate (ARNUITY ELLIPTA) 100 mcg/actuation dsdv Inhale 1 Puff as instructed once daily. guaiFENesin 1,200 mg Ta12 TWICE A DAY magnesium oxide (MAGOX) 400 mg tablet Take 400 mg by mouth once daily. acetaminophen (TYLENOL) 500 mg tablet Take 500 mg by mouth twice daily. VICTOZA 2-LIZET 0.6 mg/0.1 mL (18 mg/3 mL) pnij INJECT 1.2MG SUBCUTANEOUSLY ONCE DAILY blood sugar diagnostic (ONETOUCH ULTRA TEST) test strip Test blood sugar(s) 4 times daily and as needed for symptoms of high or low sugars. Dx: Type 2 DM - Controlled E11.9 Insulin: Yes Insulin [place], Disposable, (BD ULTRAFINE III MINI PEN) 31 gauge x 3/16 ndle Use One needle for each dose, 6 times a day (insulin and Victoza) . E11.9 metoprolol succinate ER (TOPROL XL) 50 mg 24 hr tablet Take 1 tablet by mouth twice daily. risperiDONE (RISPERDAL) 0.5 mg tablet Take 1 tablet by mouth twice daily. nystatin (MYCOSTATIN) powder Apply 1 application to affected area four times daily. atorvastatin (LIPITOR) 20 mg tablet Take 1 tablet by mouth daily at bedtime. For cholesterol. lisinopril (ZESTRIL, PRINIVIL) 40 mg tablet Take 1 tablet by mouth once daily. levothyroxine (SYNTHROID) 25 mcg tablet TAKE 1 TABLET BY MOUTH ONCE DAILY. CPAP Mask (per patient preference) optional chin strap (if indicated) , filters, tubing, humidifier and lifetime supplies. Dx G47.33 . Pt needs new supplies. HYDROcodone-acetaminophen (NORCO) 5-325 mg per tablet Take 1 tablet by mouth every 6 hours as needed. metoclopramide HCl (REGLAN) 5 mg tablet TAKE 1 TABLET BY MOUTH THREE TIMES DAILY. Blood-Glucose Meter ([facility] IncTOUCH ULTRA2) monitoring kit 1 Each as needed. One Touch Meter Kit Diagnosis: Type 2 DM - Controlled E11.9 azithromycin (ZITHROMAX) 250 mg tablet TAKE 1 TABLET BY MOUTH ONCE DAILY. COMPOUNDED PRESCRIPTION PAP titration sleep study. COMPOUNDED PRESCRIPTION Please provide portable oxygen concentrator. [facility]. umeclidinium-vilanterol (ANORO ELLIPTA) 62.5-25 mcg/actuation inhaler Inhale 1 Inhalation as instructed once daily. fluticasone (FLONASE) 50 mcg/actuation nasal spray Use 2 Sprays in each nostril daily at bedtime. albuterol (PROVENTIL) 2.5 mg /3 mL (0.083 %) nebulizer solution Use 3 mL via nebulizer every 4 hours as needed. OVER 5-15 MINUTES. May take up to every 2 hours during COPD exacerbation. Dx copd J44.9 0.9% NaCl Access implanted vascular access device (IVAD) as needed for flush, blood draw or treatment.Flush IVAD with 10-20 mL NS every 4 weeks and PRN when IVAD not in use. multivitamin tablet Take 1 tablet by mouth once daily. PHYSICAL EXAMINATION: VITAL SIGNS: BP 142/75 Pulse 80 Chest: Breath sounds are diminished. There are scattered rhonchi. There is moderate expiratory prolongation.. Trachea is midline. Air entry is equal. Cardiac: Regular rhythm. S1 and S2 are normal. PMI is nondisplaced. There is a 2/6 aortic stenosis murmur. Carotids are brisk without bruits. JVP is less than 10 cm. Abdomen: Soft and nontender. There are no pulsatile masses or bruits. No liver enlargement. Bowel sounds are active. Extremities: 2 plus soft pitting ankle edema. Pulses are intact and symmetrical. Recent labs were reviewed. Renal function is normal. Potassium was borderline low. Recent stress test showed no evidence of ischemia. Ejection fraction is normal. Echocardiogram shows preserved LV function. There is moderate aortic stenosis. LVOT velocity was not evaluated on this occasion. RVSP has improved. Electronically Signed: Gamaliel Scott MD January 28, 2018 2:19 PM CC: MD Gamaliel Quick MD 01/28/2018 2:19 PM Signed LIFESTYLE CHANGE A healthy lifestyle is the most important component of your overall treatment plan. 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 EAT A WHOLE FOOD, PLANT BASED DIET The nutrition your body gets is more important than the medicine you take. What matters most is the overall way you eat. We encourage you to minimize the use of animal products (which include dairy and all meats except fatty fish) and use whole, unprocessed plant foods to provide your protein, vitamins and other nutrients. We have a lot of information to share with you on this topic. This is not a diet. It is a way of life that you will keep with you. EXERCISE REGULARLY It is not important to spend hours in the gym, lifting weights and perspiring heavily. A total of 2-3 hours per week of aerobic (causing you to be moderately short of breath) exercise is sufficient to improve your health. Talk to us before you begin a new exercise program, if you have heart disease or experience shortness of breath or chest pain. REDUCE STRESS Chronic emotional and physical stress leads to disease. Ways of reducing stress include meditation, visualization, prayer, yoga and other forms of relaxation therapy. Consistency is the ryan. Find a technique that works for you and do it every day. CULTIVATE RELATIONSHIPS Loneliness and isolation have a major negative impact on health. Seek out others who can love, care for and nurture you. Avoid hurtful relationships. MAINTAIN IDEAL BODY WEIGHT The best way to do this is to do all the things above. Our bodies naturally find the right weight if we keep moving and feed ourselves the right food. If your BMI is greater than 25, we strongly recommend a referral to a weight management program. Please speak to us or your family physician about available programs. AVOID NICOTINE IN ALL FORMS This includes all tobacco products, whether chewed, smoked, vaped, or rubbed on the skin. Smoking cessation programs, which can make use of tobacco substitutes, medications to suppress cravings and behavior management, are available. Please contact your family physician about programs in your area. Referring Provider: GAMALIEL SCOTT [[id number]] Allergies As of Date: 01/28/2018 Noted Allergy Reaction AUGMENTIN (AMOXICILLIN-POT CLAVUL*12/15/2004 4 - Hives BACTRIM (SULFAMETHOXAZOLE-TRIMETH*11/04/2013 4 - Hives IODINATED CONTRAST- ORAL AND IV D*10/11/2015 10 - Anaphylaxis Comments: CT scan dye ANTIHISTAMINES 12/15/2004 1 - Mental Status Change Comments: Sleepy, disoriented. FLAGYL (METRONIDAZOLE) 08/25/2012 4 - Hives LATEX 12/15/2004 2 - Rash Comments: NO dyspnea or wheeze. BENADRYL (DIPHENHYDRAMINE HCL) 03/14/2012 14 - Other: See Comments Comments: Diaphoresis, nausea, tremor, akisthesia. PHENERGAN (PROMETHAZINE) 09/17/2013 5 - Intolerance Comments: Tired, nausea ADHESIVE 03/24/2010 2 - Rash 9 - Itching Date Reviewed: 01/28/2018 Reviewed by: Maribel Sanchez Ma - Fully Assessed Reason for Visit: Follow Up [171] Pulmonary Hypertension [592] Primary Visit Diagnosis:Pulmonary HTN (HCC) [I27.20] Order(s):BASIC METABOLIC PNL [SQBMP] Order #: [id number] FUTURE Prescriptions as of 01/28/2018 Sig: KETOCONAZOLE 2 % SHAMPOO Cleanse scalp qod-qday X 2-4 * SPIRONOLACTONE 25 MG TABLET Take 1 tablet by mouth twice * POTASSIUM CHLORIDE ER 10 MEQ * Take 1 tablet by mouth twice * ACETAMINOPHEN 500 MG TABLET Take 1,000 mg by mouth every * GUAIFENESIN 400 MG TABLET Take 400 mg by mouth twice da* MUPIROCIN 2 % TOPICAL OINTMENT Apply 1 application to affect* INSULIN ASPART 100 UNIT/ML MARTINEZ* Inject subcutaneously. Inject* SERTRALINE 100 MG TABLET TAKE 2 TABLETS BY MOUTH EACH * PREGABALIN 50 MG CAPSULE Take 1 capsule by mouth three* ALBUTEROL SULFATE HFA 90 MCG/* Inhale 2 Puffs as instructed * FUROSEMIDE 40 MG TABLET Take 2 tablets by mouth twice* INSULIN DETEMIR (U-100) 100 U* Take 15 units in the a.m., an* LIDOCAINE-PRILOCAINE 2.5 %-2.* Apply 1 application to affect* LOPERAMIDE 2 MG CAPSULE Take 1 capsule by mouth twice* PANTOPRAZOLE 40 MG TABLET,DEL* Take 1 tablet by mouth twice * NYSTATIN 100,000 UNIT/GRAM TO* Apply 1 application to affect* TRAZODONE 100 MG TABLET Take 1.5 tablets by mouth fani* MONTELUKAST 10 MG TABLET Take 1 tablet by mouth once d* LANCETS Test blood sugar(s) 4 times d* FLUTICASONE FUROATE 100 MCG/A* Inhale 1 Puff as instructed o* GUAIFENESIN ER 1,200 MG TABLE* TWICE A DAY MAGNESIUM OXIDE 400 MG (241.3* Take 400 mg by mouth once fani* ACETAMINOPHEN 500 MG TABLET Take 500 mg by mouth twice da* VICTOZA 2-LIZET 0.6 MG/0.1 ML (* INJECT 1.2MG SUBCUTANEOUSLY O* BLOOD SUGAR DIAGNOSTIC STRIPS Test blood sugar(s) 4 times * PEN NEEDLE, DIABETIC 31 GAUGE* Use One needle for each dose,* METOPROLOL SUCCINATE ER 50 MG* Take 1 tablet by mouth twice * RISPERIDONE 0.5 MG TABLET Take 1 tablet by mouth twice * NYSTATIN 100,000 UNIT/GRAM TO* Apply 1 application to affect* ATORVASTATIN 20 MG TABLET Take 1 tablet by mouth daily * LISINOPRIL 40 MG TABLET Take 1 tablet by mouth once d* LEVOTHYROXINE 25 MCG TABLET TAKE 1 TABLET BY MOUTH ONCE D* CPAP Mask (per patient preference)* HYDROCODONE 5 MG-ACETAMINOPHE* Take 1 tablet by mouth every * METOCLOPRAMIDE 5 MG TABLET TAKE 1 TABLET BY MOUTH THREE * BLOOD-GLUCOSE METER KIT 1 Each as needed. One Touch M* AZITHROMYCIN 250 MG TABLET TAKE 1 TABLET BY MOUTH ONCE D* COMPOUNDED PRESCRIPTION PAP titration sleep study. COMPOUNDED PRESCRIPTION Please provide portable oxyge* UMECLIDINIUM 62.5 MCG-VILANTE* Inhale 1 Inhalation as instru* FLUTICASONE 50 MCG/ACTUATION * Use 2 Sprays in each nostril * ALBUTEROL SULFATE 2.5 MG/3 ML* Use 3 mL via nebulizer every * SODIUM CHLORIDE 0.9% FLUSH Access implanted vascular acc* MULTIVITAMIN TABLET Take 1 tablet by mouth once d* Medication notes this encounter SPIRONOLACTONE 25 MG TABLET >> Maribel Sanchez Ma 01/28/2018 1:54 PM >> MARIBEL SANCHEZ MA Jan 28, 2018 1:54 PM Problem List As Of Date 01/28/2018 Noted Resolved Open wound site NOS [T14.8XXA] INVALID FOR*06/23/2010 OBST CHRON BRONCHITIS WITH EXAC [J44.1] 09/23/2014 More... ASTHMA UNSPECIFIED [J45.909] Unspecified sleep apnea [G47.30] 07/04/2012 More... Morbid obesity (HCC) [E66.01] More... THYROTOX NOS NO CRISIS [E05.90] 02/01/2006 More... MIXED HYPERLIPIDEMIA [E78.2] More... GENERALIZED ANXIETY DIS [F41.1] More... DYSTHYMIC DISORDER [F34.1] More... ALLERGIC RHINITIS NOS [J30.9] More... ESOPHAGEAL REFLUX [K21.9] More... IRRITABLE COLON [K58.9] More... Essential hypertension [I10] More... ACTINIC DAMAGE///CHR SOLAR SKIN DAMAGE NOS [L57*INVALID FOR*09/14/2012 Benign neoplasm of skin of trunk, except scrotu*INVALID FOR*04/20/2011 Scar condition and fibrosis of skin [L90.5] INVALID FOR*04/20/2011 SOLAR LENTIGINES///DYSCHROMIA OTHER [L81.9] INVALID FOR*04/20/2011 SKIN TAG PAPILLOMAS///HYPERTRO/ATROPH NOS [L91.*INVALID FOR*09/14/2012 Sebaceous cyst [L72.3] INVALID FOR*04/20/2011 Diabetes mellitus type 2, uncontrolled, without* 07/07/2015 Hypothyroidism [E03.9] INVALID FOR* Pain in joint, pelvic region and thigh [M25.559]INVALID FOR*06/23/2010 OBST CHRON BRONCHITIS W/O EXAC [J44.9] INVALID FOR*01/31/2015 LYMPHOMA UNSP SITE XTRNOD/SOLID ORG [C85.89] INVALID FOR*02/24/2007 NODULAR LYMPHOMA MULT [C85.88] INVALID FOR*04/28/2015 NEVI////BENIGN QUANG SKIN ARM [D23.60] INVALID FOR*04/20/2011 Other postoperative infection [T81.40XA] INVALID FOR*06/23/2010 Pyoderma, unspecified [L08.0] INVALID FOR*04/20/2011 Leukoplakia of oral mucosa, including tongue [K*INVALID FOR*06/23/2010 Type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 Q6H PRN PRN 06/29/14 Levothyroxine [Synthroid] 25 mcg PO DAILY 06/29/14 Montelukast [Singulair] 10 mg PO QHS 06/29/14 Oxygen, Home [Home Oxygen] 4 lpm NASAL CONT 06/29/14 Pantoprazole Sodium [Protonix] 40 mg PO BID 06/29/14 Potassium Chloride [K-Dur] 10 meq PO 4X/DAY 06/29/14 Sertraline HCl [Zoloft] 200 mg PO QHS 06/29/14 Umeclidinium Brm/Vilanterol Tr [Anoro Ellipta 62.5-25 Mcg INH] 1 each IH DAILY 06/29/14 Albuterol Aerosols [Ventolin Aerosols] 2.5 mg INHALATION Q4H PRN PRN 08/20/14 Insulin Detemir [Levemir FlexPen] 15 units SC BID 01/26/15 Atorvastatin Calcium [Lipitor] 20 mg PO QHS 09/18/15 Fluticasone 0.05% [Flonase Nasal [place]] 2 spray NASAL QHS 09/18/15 Liraglutide [Victoza 2-Lizet] 1.2 mg SQ DAILY 09/18/15 Pregabalin [Lyrica] 50 mg PO TID 09/18/15 traZODone [Desyrel] 150 mg PO QHS 11/26/16 Ketoconazole [Nizoral] 120 ml TP DAILY 12/03/16 Loperamide [Imodium] 2 mg PO BID PRN PRN 12/03/16 Nystatin Powder [Mycostatin Powder] 1 applic TOPICAL Q6H PRN 12/03/16 Acetaminophen [Tylenol] 1,000 mg PO BID 10/11/17 Furosemide [Lasix] 10 mg PO BID 10/11/17 Hydrocodone/Acetaminophen [Hydrocodone-Acetamin 5-325 mg] 1 tab PO BID PRN PRN 10/11/17 Lisinopril [Zestril] 40 mg PO DAILY 10/11/17 Metoprolol Succinate [Toprol Xl] 50 mg PO BID 10/11/17 Multivitamin [Multiple Vitamins] 1 tablet PO DAILY 10/11/17 Fluticasone Furoate [Arnuity Ellipta] 1 puff IH DAILY 11/18/17 Insulin Lispro [Humalog KwikPen] 8 unit SQ BREAKFAST 11/18/17 Insulin Lispro [Humalog KwikPen] 8 units SQ LUNCH 11/18/17 Insulin Lispro [Humalog KwikPen] 12 unit SQ DINNER 11/18/17 Magnesium Oxide [Magnesium] 400 mg PO DAILY 11/18/17 Nystatin 15 gm TP BID PRN PRN 11/18/17 Primary Care Physician: Jesus Fong MD [Primary Care Provider] - Please follow up with your Primary Care Physician in: one week Please Follow Up With: Evan Collazo MD When: 1-2 weeks for IBS and diarrhea Patient Instructions: Treating Diarrhea Disposition: Home Minutes spent on discharge:: 40 Patient Condition:: Stable Medical Necessity - Tobacco Use Smoking Status: Former smoker Tobacco Use: Non-smoker Meaningful Use Info Meaningful Use Diagnoses (Choose all that apply): None applicable Code Visit Inpatient E AND M: 30876 Disch Hosp 11/20/17 1320 <Electronically signed by Lubna Gaspar MD> Date Lubna Gaspar MD Cosigner Signature (if applicable): Date CC: Jesus Fong MD; Lubna Gaspar MD Signed BEDSIDE GLUCOSE Collected: 11/20/2017 Status: F Source: [place] 7:15 AM [facility] REPOSITORY TYPE CODE TESTS RESULT OUT OF REFERENCE UNITS RANGE LAB L501.080 70-110 mg/dL High BEDSIDE GLU 136 Result Comment: MANAGEMENT OF PATIENT CARE PER NURSING PROTOCOL Performed By: #### L501.080 #### [facility] Point of Care [address] [place] [address] CBC W/DIFF, AUTOMATED Collected: 11/20/2017 Status: F Source: [place] 5:50 AM [facility] REPOSITORY Order Comment: SPECIMEN OBTAINED FROM LINE DRAW TYPE CODE TESTS RESULT OUT OF RANGE REFERENCE UNITS LAB L100.1000 4.4-11.0 K/mm3 Normal WBC 9.2 LAB L100.1200 4.2-5.4 M/mm3 Low RBC 4.08 LAB L100.1300 12.0-15.0 g/dl Normal HGB 12.3 LAB L100.1400 37-47 % Normal HCT 39.5 LAB L100.1500 81-99 fL Normal MCV 96.8 LAB L100.1600 27.0-32.0 pg Normal MCH 30.1 LAB L100.1700 32-36 g/gl Low MCHC 31.1 LAB L100.1810 11.6-14.6 % High RDW CV 15.2 LAB L100.1820 35.1-43.9 fl High RDW SD 52.1 LAB L100.1900 150-450 K/mm3 Normal PLT 202 LAB L100.2000 6.2-12.0 fl Normal MPV 10.3 LAB L100.2100 47-70 % High NEUT% 77.4 LAB L100.2200 19-41 % Low LY% 14.0 LAB L100.2300 0-10 % Normal MONO% 5.9 LAB L100.2400 0-5 % Normal EO% 2.2 LAB L100.2500 0-1 % Normal BASO% 0.2 LAB L100.2550 0.0-0.9 % Normal IM GRAN % 0.300 Result Comment: IG% - Immature Granulocytes (promyelocytes, myelocytes and metamyelocytes) > 1% indicates that a LEFT SHIFT is Present. LAB L100.2620 2.0-7.7 X10 3/uL Normal Absolute Neut 7.1 LAB L100.2720 0.83-4.51 X10 3/ul Normal Absolute Lymph 1.29 Performed By: #### L100.0100 #### [facility] [address] [place], [address] BASIC METABOLIC Collected: 11/20/2017 Status: F Source: [place] PROFILE (BMP) 5:50 AM [facility] REPOSITORY Order Comment: SPECIMEN OBTAINED FROM LINE DRAW TYPE CODE TESTS RESULT OUT OF RANGE REFERENCE UNITS LAB L501.0100 74-106 mg/dL High GLU 125 Result Comment: Fasting Glucose result from 100 to 125 mg/dL suggests IMPAIRED HOMEOSTASIS per A.D.A. criteria. Please note revised GLUCOSE reference range effective 2017. LAB L501.1000 7-18 mg/dL Low BUN 5 LAB L501.1100 0.55-1.02 mg/dL Low CREAT,SERUM 0.51 Result Comment: The validity of the calculated GFR AND GFRAA in patients over 70 years has not been determined. Clinical correlation is essential. LAB L501.1110 >60 mL/min Normal EST GFR 125 Result Comment: Non- GFR Calc LAB L501.1115 >60 mL/min Normal EST GFR - AA 152 Result Comment: GFR Calc LAB L501.1255 ml/min Normal Estimated CRCL 38.94 LAB L501.1300 10-20 RATIO Low BUN/CRE 9.7 LAB L501.2200 8.5-10 mg/dL Low .1 CA 8.2 LAB L501.5300 136-14 mmol/L High 5 NA 148 LAB L501.5600 3.5-5. mmol/L Normal 1 K 3.8 LAB L501.5900 98-107 mmol/L High CL 110 LAB L501.6100 21.0-3 mmol/L Normal 2.0 CO2 32.0 LAB L501.6200 5-15 Normal GAP 6 Performed By: #### L500.2500 #### [facility] [address] [place], [address] BEDSIDE GLUCOSE Collected: 11/19/2017 Status: F Source: [place] 10:09 PM [facility] REPOSITORY TYPE CODE TESTS RESULT OUT OF RANGE REFERENCE UNITS LAB L501.080 70-110 mg/dL Normal BEDSIDE GLU 109 Result Comment: MANAGEMENT OF PATIENT CARE PER NURSING PROTOCOL Performed By: #### L501.080 #### [facility] Point of Care [address] [place] [address] STOOL Observed: 11/19/2017 Status: F Source: [place] LACTOFERRIN/WBC 8:20 PM [facility] REPOSITORY Stool Lacto/WBC Normal Reference Range = Negative Fecal WBC Lactoferrin Negative: No Fecal WBC Lactoferrin present Performed By: #### M100.0605 #### [facility] [address] [facility] [place], [address] Observed: 11/19/2017 Status: F Source: [place] OVA AND PARASITES 8:20 PM [facility] REPOSITORY Order Date: 11/18/17 Has pt arrived? Y O + P OVA AND PARASITES EXAM, ROUTINE These results were obtained using wet preparation(s) and trichrome stained smear. This test does not include testing for Crytosporidium parvum, Cyclospora, or Microsporidia. [facility]. ORIGINAL REPORT ON FILE IN LAB CONTAINS ADDITIONAL TEST SITE INFORMATION. Ova/Parasite Exam NO OVA, CYSTS, OR PARASITES FOUND. Performed By: #### M600.5000 #### [facility] [address] [place], [address] BEDSIDE GLUCOSE Collected: 11/19/2017 Status: F Source: [place] 5:26 PM [facility] REPOSITORY TYPE CODE TESTS RESULT OUT OF RANGE REFERENCE UNITS LAB L501.080 70-110 mg/dL Normal BEDSIDE GLU 104 Result Comment: MANAGEMENT OF PATIENT CARE PER NURSING PROTOCOL Performed By: #### L501.080 #### [facility] Point of Care [address] [place] [address] BEDSIDE GLUCOSE Collected: 11/19/2017 Status: F Source: [place] 12:17 PM [facility] REPOSITORY TYPE CODE TESTS RESULT OUT OF REFERENCE UNITS RANGE LAB L501.080 70-110 mg/dL High BEDSIDE GLU 147 Result Comment: MANAGEMENT OF PATIENT CARE PER NURSING PROTOCOL Performed By: #### L501.080 #### [facility] Point of Care [address] [place] [address] BEDSIDE GLUCOSE Collected: 11/19/2017 Status: F Source: [place] 7:05 AM [facility] REPOSITORY TYPE CODE TESTS RESULT OUT OF REFERENCE UNITS RANGE LAB L501.080 70-110 mg/dL High BEDSIDE GLU 115 Result Comment: MANAGEMENT OF PATIENT CARE PER NURSING PROTOCOL Performed By: #### L501.080 #### [facility] Point of Care [address] [place] [address] CBC W/DIFF, AUTOMATED Collected: 11/19/2017 Status: F Source: [place] 5:55 AM [facility] REPOSITORY Order Comment: SPECIMEN OBTAINED FROM LINE DRAW TYPE CODE TESTS RESULT OUT OF RANGE REFERENCE UNITS LAB L100.1000 4.4-11.0 K/mm3 Normal WBC 8.6 LAB L100.1200 4.2-5.4 M/mm3 Low RBC 3.86 LAB L100.1300 12.0-15.0 g/dl Normal HGB 12.0 LAB L100.1400 37-47 % Low HCT 36.6 LAB L100.1500 81-99 fL Normal MCV 94.8 LAB L100.1600 27.0-32.0 pg Normal MCH 31.1 LAB L100.1700 32-36 g/gl Normal MCHC 32.8 LAB L100.1810 11.6-14.6 % High RDW CV 14.9 LAB L100.1820 35.1-43.9 fl High RDW SD 49.4 LAB L100.1900 150-450 K/mm3 Normal PLT 200 LAB L100.2000 6.2-12.0 fl Normal MPV 10.1 LAB L100.2100 47-70 % High NEUT% 70.8 LAB L100.2200 19-41 % Normal LY% 20.1 LAB L100.2300 0-10 % Normal MONO% 6.2 LAB L100.2400 0-5 % Normal EO% 2.4 LAB L100.2500 0-1 % Normal BASO% 0.2 LAB L100.2550 0.0-0.9 % Normal IM GRAN % 0.300 Result Comment: IG% - Immature Granulocytes (promyelocytes, myelocytes and metamyelocytes) > 1% indicates that a LEFT SHIFT is Present. LAB L100.2620 2.0-7.7 X10 3/uL Normal Absolute Neut 6.1 LAB L100.2720 0.83-4.51 X10 3/ul Normal Absolute Lymph 1.73 Performed By: #### L100.0100 #### [facility] [address] [place], [address] BASIC METABOLIC Collected: 11/19/2017 Status: F Source: [place] PROFILE ([facility]) 5:55 AM [facility] REPOSITORY Order Comment: SPECIMEN OBTAINED FROM LINE DRAW TYPE CODE TESTS RESULT OUT OF RANGE REFERENCE UNITS LAB L501.0100 74-106 mg/dL Normal GLU 102 Result Comment: Fasting Glucose result from 100 to 125 mg/dL suggests IMPAIRED HOMEOSTASIS per A.D.A. criteria. Please note revised GLUCOSE reference range effective 2017. LAB L501.1000 7-18 mg/dL Normal BUN 7 LAB L501.1100 0.55-1.02 mg/dL Low CREAT,SERUM 0.52 Result Comment: The validity of the calculated GFR AND GFRAA in patients over 70 years has not been determined. Clinical correlation is essential. LAB L501.1110 >60 mL/min Normal EST GFR 123 Result Comment: Non- GFR Calc LAB L501.1115 >60 mL/min Normal EST GFR - AA 149 Result Comment: GFR Calc LAB L501.1255 ml/min Normal Estimated CRCL 38.94 LAB L501.1300 10-20 RATIO Normal BUN/CRE 13.4 LAB L501.2200 8.5-10 mg/dL Low .1 CA 8.3 LAB L501.5300 136-14 mmol/L High 5 NA 146 LAB L501.5600 3.5-5. mmol/L Normal 1 K 3.5 LAB L501.5900 98-107 mmol/L Normal CL 107 LAB L501.6100 21.0-3 mmol/L Normal 2.0 CO2 32.0 LAB L501.6200 5-15 Normal GAP 7 Performed By: #### L500.2500 #### [facility] [address] [place], [place], [address] Observed: 11/19/2017 Status: F Source: [place] CDIFF (MOLECULAR) 2:15 AM [facility] REPOSITORY Is the patient receiving laxatives? N New/unexplained onset of 3 or more stools in past 24 hrs? Y Order Date: 11/18/17 Has pt arrived? Y Cdiff-Molecular Normal Reference Range = Negative C. Diff DNA Negative- No toxigenic C. Diff DNA Detected NAAT METHOD Testing was performed using nucleic acid amplification Performed By: #### M100.6796 #### [facility] [address] [place], [place], [address] Observed: 11/19/2017 Status: F Source: [place] ENTERIC PATHOGEN 2:15 AM [facility] PANEL STOOL REPOSITORY Order Date: 11/18/17 Has pt arrived? Y EP PANEL STOOL Normal Reference Range = Not Detected Not detected for Campylobacter group, Salmonella species, Shigella species, Vibrio Group, Yersinia enterocolitica, EHEC (Shiga Toxin 1, Shiga Toxin 2), Norovirus Gl/Gll, and Rotavirus A. Other common stool pathogens are not detected on this panel include: Aeromonas/Plesiomonas or parasites. Order testing for these organisms separately if suspected. This is an amplified DNA test which makes it both specific and sensitive. CAMPYLOBACTER Not Detected Salmonella Not Detected Shigella sp. Not Detected Shiga Toxin Not Detected Yersinia Not Detected VIBRIO Not Detected Norovirus Not Detected Rotavirus Not Detected Performed By: #### M100.637 #### [facility] [address] [place], [address] BEDSIDE GLUCOSE Collected: 11/19/2017 Status: F Source: [place] 12:03 AM [facility] REPOSITORY TYPE CODE TESTS RESULT OUT OF RANGE REFERENCE UNITS LAB L501.080 70-110 mg/dL Normal BEDSIDE GLU 109 Result Comment: MANAGEMENT OF PATIENT CARE PER NURSING PROTOCOL Performed By: #### L501.080 #### [facility] Point of Care [address] [place] [address] HISTORY AND PHYSICAL Observed: 11/18/2017 Status: F Source: [place] EXAM 8:34 PM [facility] REPOSITORY [facility] Medical Records Department [address] [facility] [place] [address] History and Physical 11/18/171952 MR#: [id number] Acct: [id number] Name: DAMION MOYER Rep #: [id number] : 1945 72 From: Milagros Muñoz PCP: Jesus Fong MD Status: ADM CHARISMA Y Location: [place] [address] Problem List (1) Gastroenteritis Status: Acute (2) IBS (irritable bowel syndrome) Status: Chronic Qualifiers: Irritable bowel syndrome type: with diarrhea Qualified Code(s): K58.0 - Irritable bowel syndrome with diarrhea (3) Morbid obesity Status: Chronic (4) Nonrheumatic aortic valve stenosis Status: Chronic (5) Nonrheumatic mitral valve insufficiency Status: Chronic (6) Heart failure Status: Chronic Qualifiers: Heart failure type: unspecified Heart failure chronicity: chronic Qualified Code(s): I50.9 - Heart failure, unspecified (7) Non Hodgkin's lymphoma Status: Chronic Qualifiers: Non-Hodgkin lymphoma type: unspecified type Lymphoma site: unspecified region Qualified Code(s): C85.90 - Non-Hodgkin lymphoma, unspecified, unspecified site (8) Anxiety Status: Chronic (9) Depression Status: Chronic Qualifiers: Depression Type: unspecified Qualified Code(s): F32.9 - Major depressive disorder, single episode, unspecified (10) Hypertension Status: Chronic Qualifiers: Hypertension type: essential hypertension Qualified Code(s): I10 - Essential (primary) hypertension (11) Hyperlipidemia Status: Chronic Qualifiers: Hyperlipidemia type: pure hypercholesterolemia Qualified Code(s): E78.00 - Pure hypercholesterolemia, unspecified; E78.0 - Pure hypercholesterolemia (12) Chronic respiratory failure Status: Chronic Qualifiers: Respiratory failure complication: hypoxia Qualified Code(s): J96.11 - Chronic respiratory failure with hypoxia Comment: copd 3 liters continuous (13) Hypothyroidism Status: Chronic Qualifiers: Hypothyroidism type: unspecified Qualified Code(s): E03.9 - Hypothyroidism, unspecified (14) GERD (gastroesophageal reflux disease) Status: Chronic Qualifiers: Esophagitis presence: esophagitis presence not specified Qualified Code(s): K21.9 - Gastro-esophageal reflux disease without esophagitis (15) Diabetes mellitus, type II Status: Chronic Qualifiers: Diabetes mellitus superintendent [employer] 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 use: with senior living use Diabetes mellitus complication status: with unspecified complications Qualified Code(s): E11.8 - Type 2 diabetes mellitus with unspecified complications; Z79.4 - skilled nursing (current) use of insulin (16) Sleep apnea Status: Chronic Qualifiers: Sleep apnea type: unspecified type Qualified Code(s): G47.30 - Sleep apnea, unspecified (17) Fatty liver disease, nonalcoholic Status: Chronic (18) Sjogren's syndrome Status: Chronic Qualifiers: Sjogren's organ involvement: unspecified organ involvement Qualified Code(s): M35.00 - Sicca syndrome, unspecified (19) Chronic obstructive pulmonary disease Status: Chronic Qualifiers: Emphysema type: unspecified History of Present Illness Date of Admission: 11/18/17 Chief Complaint: Diarrhea, fatigue, poor intake. The patient is a 72 y/o F w/ PMHx: COPD (3L NC, q HS BIPAP) w/ Chronic Hypoxic Respiratory Failure, SCOTTY (q HS BiPaP), Diabetes mellitus type II, HTN, HLD, Hypothyroidism, Depression/Anxiety, (ECHO 2008 mild-mod, EF 60%), Sjorgen's Syndrome, Fatty liver w/ elevated LFTs, [place] Lymphoma (Chemo until 10/2011, IVIG q month prior, follows w/ Dr. Khan), History of IBS who presents to the [facility] ED on 11/18/17 with history of diarrhea ongoing x 2 months on chronic erythromycin therapy per her pulmonary physician, worse x 2 weeks, worse with any oral intake and secondary to this has had recent poor intake but admits to 8 lb weight drop over the last several weeks and concurrent LLQ pain. She notes 2-6 loose stools daily, although day prior 2 and on day of ED presentation none. She uses a wheelchair chronically and given her difficulties in getting to the restroom she has been more apt to decrease her intake to avoid loose stools. She had c-scope at [place] 3-5 months prior with unclear results. She notes having seen Dr. David in the past. She notes that she has always had diarrhea w/ her IBS but this presentation over the last several months, specifically the last 2 weeks has been markedly worse than her baseline. She cannot detail any medications she has been on in the past for her IBS. She does status that she currently uses well water. Workup in the ED included T 97.2, heart rate 69, BP initially 167/80--> 40/78, respiratory rate 16, 94% room air, CBC with WBC 10.5, hemoglobin 13.2, platelet 222 with left shift, CMP with sodium 146, potassium 3.2, carbon dioxide 34, BUN/creatinine 6/0.48, total bilirubin 1.10, AST/ALT 24/26, alk phos 144, lipase 131, LA normal, CT abdomen and pelvis without contrast with no gross change or definitive Acute abnormality although limited secondary to no IV or oral contrast. 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) Antihyperlipidemic Nonrheumatic aortic valve stenosis (Chronic) Nonrheumatic mitral valve insufficiency (Chronic) Heart failure (Chronic) Non Hodgkin's lymphoma (Chronic) Anxiety (Chronic) Depression (Chronic) Hypertension (Chronic) Hyperlipidemia (Chronic) Chronic respiratory failure (Chronic) copd 3 liters continuous Hypothyroidism (Chronic) GERD (gastroesophageal reflux disease) (Chronic) Diabetes mellitus, type II (Chronic) Benign essential HTN (Chronic) Sleep apnea (Chronic) Fatty liver disease, nonalcoholic (Chronic) Sjogren's syndrome (Chronic) Diverticulosis (Chronic) Mild aortic stenosis (Chronic) Super obesity (Chronic) bmi 48 Medical History: Medical History (Last Updated 06/24/17 @ 11:40 by Meenakshi Jose) Nonrheumatic aortic valve stenosis (Chronic) I35.0 Nonrheumatic mitral valve insufficiency (Chronic) I34.0 Heart failure (Chronic) I50.9 Hypertension (Chronic) I10 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 Breast pain, left N64.4 CHF (congestive heart failure) I50.9 Chronic obstructive pulmonary disease J44.9 Dyspnea on exertion R06.09 Neck pain M54.2 SCOTTY (obstructive sleep apnea) G47.33 Pseudomonas aeruginosa infection A49.8 Allergies adhesive Allergy (Verified 10/11/17 15:26) Itching adhesive tape Allergy (Verified 10/11/17 15:26) Rash amoxicillin trihydrate [From Augmentin] Allergy (Verified 10/11/17 15:26) Hives latex Allergy (Verified 10/11/17 15:26) Rash Latex, Natural Rubber Allergy (Verified 10/11/17 15:26) Rash metronidazole [From Flagyl] Allergy (Verified 10/11/17 15:26) Hives Metronidazole HCl [From Flagyl] Allergy (Verified 10/11/17 15:26) Hives Penicillins [PCN] Allergy (Verified 10/11/17 15:26) Other potassium clavulanate [From Augmentin] Allergy (Verified 10/11/17 15:26) Hives sulfamethoxazole [From Bactrim] Allergy (Verified 10/11/17 15:26) Hives hives trimethoprim [From Bactrim] Allergy (Verified 10/11/17 15:26) Hives hives diphenhydramine HCl [From Benadryl] Adverse Reaction (Verified 10/11/17 15:26) i could crawl to the ceiling i could crawl the ceiling omeprazole Adverse Reaction (Verified 10/11/17 15:26) Nausea promethazine HCl [From Phenergan] Adverse Reaction (Verified 10/11/17 15:26) Nausea antihistamine Allergy (Uncoded 10/11/17 15:26) i could crawl to the ceiling crawl the ceiling cat scan dye Allergy (Uncoded 10/11/17 15:26) Anaphylaxis Home Medications: Ambulatory Orders Medication Instructions Recorded Albuterol Inhaler [Ventolin Hfa] 2 puff INHALATION Q6H PRN PRN 06/29/14 Surgical History: Surgical History (Last Updated 06/20/17 @ 14:50 by Thania Castro) H/O hemorrhoidectomy (Resolved) Z98.890 History of tonsillectomy (Resolved) Z90.89 S/P wrist surgery (Resolved) Z98.890 right Surgical History: - - Right breast hematoma removal, Left breast lumps removal, Right chest port, R Wrist surery, T+A, hemorrhoidectomy. 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 Lives: Alone Smoking Status: Never smoker Tobacco Use: Non-smoker Alcohol: None Drugs: None - *Family History Offspring Family History: Family History (Last Updated 06/20/17 @ 14:52 by Thania Castro) Brother CAD (coronary artery disease) CVA (cerebral vascular accident) Brother Sudden cardiac Brother CAD (coronary artery disease) Mother Heart disease Father Brain aneurysm History Items: Cancer, Diabetes, Hypertension Maternal Family History: Family History (Last Updated 06/20/17 @ 14:52 by Thania Castro) Brother CAD (coronary artery disease) CVA (cerebral vascular accident) Brother Sudden cardiac Brother CAD (coronary artery disease) Mother Heart disease Father Brain aneurysm History Items: - - There is a positive family HTN and and DM Sibling Family History: Family History (Last Updated 06/20/17 @ 14:52 by Thania Castro) Brother CAD (coronary artery disease) CVA (cerebral vascular accident) Brother Sudden cardiac Brother CAD (coronary artery disease) Mother Heart disease Father Brain aneurysm History Items: - - ALL in one child and bone cancer in another Review of Systems Constitutional: Reports: Anorexia, Malaise, Weakness, Fatigue. Denies: Chills, Fever, Weight Change HEENT: Denies: Head Aches, Sinus Congestion, Sinus Drainage Cardiovascular: Denies: Chest Pain, Edema, Heaviness, Light Headedness, Palpitations, Syncope Respiratory: Reports: Shortness of breath at rest, Shortness of breath upon exertion. Denies: Cough, Sputum production, Wheezing Gastrointestinal: Reports: Abdominal Pain, Diarrhea. Denies: Nausea, Vomiting Genitourinary: Denies: Dysuria Musculoskeletal: Reports: Back Pain, Joint Pain, Leg Pain. Denies: Joint Tenderness Skin: Denies: Rash, Wounds Neurological: Denies: Numbness, Tingling, Focal weakness Psychiatric: Reports: Anxiety, Depression. Denies: Homicidal Ideations, Suicidal Ideations Hematologic/ Lymphatic: Reports: Anemia. Denies: Easy Bruising, Easy Bleeding VTE Information - Inpt Only VTE Present on Admission: No VTE Mechan Device Prophylaxis: SCD's VTE Pharm Prophylaxis ordered?: Yes Patient Problems: Active and Suspected Problems (Last Updated 06/24/17 @ 11:40 by Meenakshi Jose) Gastroenteritis (Acute) Subjective: Seated upright in ED bed, fatigued appearance, no acute distress. Objective: Physical Examination: General: awake, alert, oriented x 3 and cooperative, seated upright in the ED bed in no apparent distress, fatigued appearance. Skin: normal color, turgor, no icterus, cyanosis. HEENT: AT/NC, EOMI, PERRLA, mildly dry MM, no carotid bruits or JVD noted. Lungs: Diminished breath sounds diffusely, greater bases, mild effort, no rales, ronchi or wheezing. Heart: Regular rate and rhythm; no gallop, rub audible. Abdomen: soft, morbidly obese, mild TTP LUQ to deep palpation, difficult to assess distention secondary to habitus, hypoactive BS, difficult to assess HSm secondary to morbidly obese habitus. Extremities: no cyanosis, clubbing, BL LE ankle non-pitting. Neurological: patient awake, alert, oriented x 3; cognitive function intact; pupils equally reactive to light and accomodation; cranial nerves II-XII grossly normal, moving all 4 extremities but chronic BL LE debility, uses wheelchair chronically, strength accordingly severe globally decreased. Psychiatric: affect appears fatigued, flat, no acute evidence of depressive or anxiety feelings. - Physical Exam Vital Signs Temp Pulse Resp BP Pulse Ox 97.2 F L 75 14 155/74 H 98 11/18/17 15:39 11/18/17 18:01 11/18/17 18:01 11/18/17 18:01 11/18/17 18:01 Oxygen Delivery Method Room Air Weight: 226 lb Body Mass Index (BMI) 42.7 Finger Stick Blood Glucose 204 Laboratory Tests Past 24 Hrs WBC 10.5 RBC 4.41 Hgb 13.2 Hct 40.7 MCV 92.3 MCH 29.9 MCHC 32.4 RDW 14.9 H RDW Differential 50.3 H Assessment/Plan All Active Problems (Last Updated 06/24/17 @ 11:40 by Meenakshi Jose) Gastroenteritis (Acute) H/O hemorrhoidectomy (Resolved) History of tonsillectomy (Resolved) S/P wrist surgery (Resolved) Chest pain (Acute) Cervicalgia (Resolved) Hyperglycemia (Resolved) Recent urinary tract infection (Resolved) The patient is a 72 y/o F w/ PMHx: COPD (3L NC, q HS BIPAP) w/ Chronic Hypoxic Respiratory Failure, SCOTTY (q HS BiPaP), Diabetes mellitus type II, HTN, HLD, Hypothyroidism, Depression/Anxiety, (ECHO 2008 mild-mod, EF 60%), Sjorgen's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 noted, all testing performed by [place] [address] CLIA: [id number] Concrete Carpenter: Hammad Cummings M.D. GLUCOSE, POC Collected: 07/22/2017 Status: F Source: [facility] 8:43 AM [facility] REPOSITORY TYPE CODE TESTS RESULT OUT OF RANGE REFERENCE UNITS LAB GLUX 80-115 mg/dL High Glucose, 170 POC Performed By: #### GLUX #### Unless otherwise noted, all testing performed by [place] [address] CLIA: [id number] Concrete Carpenter: Hammad Emiliano, M.D. GLUCOSE, POC Collected: 07/21/2017 Status: F Source: [facility] 5:06 PM [facility] REPOSITORY TYPE CODE TESTS RESULT OUT OF RANGE REFERENCE UNITS LAB GLUX 80-115 mg/dL High Glucose, 168 POC Performed By: #### GLUX #### Unless otherwise noted, all testing performed by [facility] [address] [place], [place] [address] CLIA: [id number] Concrete Carpenter: Hammda Cummings M.D. GLUCOSE, POC Collected: 07/21/2017 Status: F Source: [facility] 12:30 PM [facility] REPOSITORY TYPE CODE TESTS RESULT OUT OF RANGE REFERENCE UNITS LAB GLUX 80-115 mg/dL High Glucose, 199 POC Performed By: #### GLUX #### Unless otherwise noted, all testing performed by [facility] [address] [place], [place] [address] CLIA: [id number] Concrete Carpenter: Hammad Cummings M.D. CBC WITH DIFF Collected: 07/21/2017 Status: F Source: [facility] 9:45 AM [facility] REPOSITORY TYPE CODE TESTS RESULT OUT OF RANGE REFERENCE UNITS LAB WBC 3.4-10.6 K/mcL WBC Normal 10.0 LAB RBC 3.7-5.0 M/mcL RBC Normal 4.69 LAB HGB 11.6-15.4 g/dL Normal Hemoglobin 12.3 LAB HCT 34.4-44.8 % Normal Hematocrit 38.7 LAB MCV 82.6-98.9 FL Low MCV 82.5 LAB MCH 27.9-33.9 pg Low MCH 26.2 LAB MCHC 33.1-35.1 g/dL Low MCHC 31.8 LAB RDW 10.0-14.4 % High RDW 16.1 LAB PLT 162-402 K/mcL Platelet Normal Count 270 LAB MPV 7.0-10.6 FL MPV Normal 8.7 LAB NEUT# 1.2-6.9 K/mcL High Neutrophil # 8.9 LAB LYMPH# 1.0-3.7 K/mcL Low Lymphocyte # 0.6 LAB MONO# 0.1-0.6 K/mcL Monocyte Normal # 0.2 LAB EOS# 0-0.5 K/mcL Normal Eosinophil # 0.1 LAB BASO# 0-0.2 K/mcL Basophil Normal # 0.1 LAB SEGNEU% % Normal Segmented Neut % 89.2 LAB LYMP% % Normal Lymphocyte% 6.4 LAB MO% % Monocyte Normal % 2.4 LAB EO% % Normal Eosinophil % 1.4 LAB BA% % Basophil Normal % 0.6 Performed By: #### CHEM8, CBCDIF, MG #### Unless otherwise noted, all testing performed by [place] [address] CLIA: [id number] Concrete Carpenter: Hammad Cummings M.D. MAGNESIUM Collected: 07/21/2017 Status: F Source: [facility] 9:45 [facility] REPOSITORY TYPE CODE TESTS RESULT OUT OF RANGE REFERENCE UNITS LAB MG 1.6-2.4 mg/dL Normal Magnesium 2.3 Performed By: #### CHEM8, CBCDIF, MG #### Unless otherwise noted, all testing performed by [place] [address] CLIA: [id number] Concrete Carpenter: Hammad Cummings M.D. BASIC METABOLIC PANEL Collected: 07/21/2017 Status: F Source: [facility] 9:45 [facility] REPOSITORY TYPE CODE TESTS RESULT OUT OF REFERENCE UNITS RANGE LAB GLU 70-99 mg/dL High Glucose 267 Result Comment: This test result might be falsely depressed or falsely elevated on samples drawn from patients taking Sulfasalazine and Sulfapyridine. Venipuncture should occur prior to taking either of these drugs. LAB BUN 8-25 mg/dL BUN 11 LAB CREA 0.60-1.20 mg/dL Creatinine 0.64 LAB eGFR ml/min/1.73sq .m eGFR,NonAfrican-Am erican >=60 Result Comment: Non- GFR Calc eGFR is an estimated Glomerular Filtration Rate based on the value of the patient's serum creatinine. In outpatients, eGFR should be used as a helpful tool in screening for CKD. In inpatients or patients with acute renal failure, eGFR represents the GFR at the moment of the draw and should be used with caution. LAB eGFRB ml/min/1.73sq.m eGFR, -Vietnamese >=60 Result Comment: GFR Calc LAB CALCM 8.4-10.2 mg/dL Calcium 9.2 LAB NA 135-145 mmol/L Sodium 141 LAB K 3.5-5.1 mmol/L Low Potassium 3.4 LAB CL 98-108 mmol/L Chloride 100 LAB CO2 21-32 mmol/L CO2 High 35 Performed By: #### CHEM8, CBCDIF, MG #### Unless otherwise noted, all testing performed by [address] [place] [address] CLIA: [id number] Concrete Carpenter: Hammad Cummings M.D. GLUCOSE, POC Collected: 07/21/2017 Status: F Source: [facility] 7:57 AM [facility] REPOSITORY TYPE CODE TESTS RESULT OUT OF RANGE REFERENCE UNITS LAB GLUX 80-115 mg/dL High Glucose, 134 POC Performed By: #### GLUX #### Unless otherwise noted, all testing performed by [address] [place] [address] CLIA: [id number] Concrete Carpenter: Hammad Cummings M.D. CHEST PA AND LATERAL Observed: 07/20/2017 Status: F Source: [facility] 10:52 PM [facility] REPOSITORY Final Report Accession No: [id number] Performed: Jul 20 2017 10:52PM Examination: CHEST PA AND LATERAL TWO-VIEW CHEST: COMPARISON: Two-view chest from 07/17/2017. REASON FOR STUDY: Shortness of breath. REPORT: The lungs show hyperaeration with chronic changes. Slight interstitial congestion is possible. No pneumothorax or effusion is noted. The trachea, mediastinum and the diaphragm are unremarkable. The heart size is mildly prominent. There is a left central line noted with the tip in the distal SVC. The bony elements show osteopenic changes. IMPRESSION: 1. Mild cardiomegaly. 2. The lungs show hyperaeration with chronic changes. No infiltrate or nodule or effusion is noted. Interpreting Physician: KORI SPICER D.O. Trans: lcoope : cc: CBC WITH DIFF Collected: 07/20/2017 Status: F Source: [facility] 10:15 PM [facility] REPOSITORY TYPE CODE TESTS RESULT OUT OF RANGE REFERENCE UNITS LAB WBC 3.4-10.6 K/mcL WBC Normal 10.2 LAB RBC 3.7-5.0 M/mcL RBC Normal 4.56 LAB HGB 11.6-15.4 g/dL Normal Hemoglobin 11.8 LAB HCT 34.4-44.8 % Normal Hematocrit 37.4 LAB MCV 82.6-98.9 FL Low MCV 82.1 LAB MCH 27.9-33.9 pg Low MCH 25.8 LAB MCHC 33.1-35.1 g/dL Low MCHC 31.4 LAB RDW 10.0-14.4 % High RDW 16.0 LAB PLT 162-402 K/mcL Platelet Normal Count 250 LAB MPV 7.0-10.6 FL MPV Normal 8.9 LAB NEUT# 1.2-6.9 K/mcL High Neutrophil # 8.1 LAB LYMPH# 1.0-3.7 K/mcL Normal Lymphocyte # 1.2 LAB MONO# 0.1-0.6 K/mcL Monocyte Normal # 0.5 LAB EOS# 0-0.5 K/mcL Normal Eosinophil # 0.2 LAB BASO# 0-0.2 K/mcL Basophil Normal # 0.1 LAB SEGNEU% % Normal Segmented Neut % 79.9 LAB LYMP% % Normal Lymphocyte% 12.1 LAB MO% % Monocyte Normal % 5.2 LAB EO% % Normal Eosinophil % 1.7 LAB BA% % Basophil Normal % 1.1 Performed By: #### NTPROBNP, PT, CBCDIF, CMET, PTT, EDCTNI #### Unless otherwise noted, all testing performed by [place] [address] [facility] [place] [address] CLIA: [id number] Concrete Carpenter: Hammad Cummings M.D. PROTIME Collected: 07/20/2017 Status: F Source: [facility] 10:15 PM [facility] REPOSITORY TYPE CODE TESTS RESULT OUT OF RANGE REFERENCE UNITS LAB PT. 11.8-14.3 Seconds Normal Protime 13.2 LAB INR Normal INR 1.03 Result Comment: The [employer] recommended therapeutic range for Warfarin (Coumadin) therapy goals: PROPHYLAXIS/TREATMENT of: INR Venous Thrombosis, Pulmonary Embolism 2.0-3.0 Prevention of VTE (Orthopedic Surgery) 2.0-3.0 Atrial Fibrillation 2.0-3.0 Myocardial Infarction 2.0-3.0 Mechanical Prosthetic Heart Valves (Aortic position) 2.0-3.0 Mechanical Prosthetic Heart Valves (Mitral Position) 2.5-3.5 [employer] evidence-based clinical practice guidelines. CHEST. 2012 (9th ed) Performed By: #### NTPROBNP, PT, CBCDIF, CMET, PTT, EDCTNI #### Unless otherwise noted, all testing performed by [place] [address] CLIA: [id number] Concrete Carpenter: Hammad Cummings M.D. PARTIAL THROMBOPLASTIN Collected: 07/20/2017 Status: F Source: [facility] TIME 10:15 PM [facility] REPOSITORY TYPE CODE TESTS RESULT OUT OF REFERENCE UNITS RANGE LAB PTT 23.0-34.0 Seconds Partial Normal Thromboplastin Time 29 Result Comment: Suggested therapeutic range for PTT is 68-104 sec. Performed By: #### NTPROBNP, PT, CBCDIF, CMET, PTT, EDCTNI #### Unless otherwise noted, all testing performed by [place] [address] CLIA: [id number] Concrete Carpenter: Hammad Cummings M.D. ED CARDIAC TROPONIN-I Collected: 07/20/2017 Status: F Source: [facility] 10:15 PM [facility] REPOSITORY TYPE CODE TESTS RESULT OUT OF RANGE REFERENCE UNITS LAB EDCTNI < 45 ng/L Normal ED Cardiac < 15 Troponin-I Result Comment: Elevation of troponin indicates some degree of myocardial necrosis but unless there is a significant rise and/or fall (if elevated) identified, it unlikely that an acute event has taken place Samples from patients routinely receiving high dose biotin therapy (100-300 mg/day) may show falsely decreased results. Please correlate clinically. Performed By: #### NTPROBNP, PT, CBCDIF, CMET, PTT, EDCTNI #### Unless otherwise noted, all testing performed by [facility] [address] [place], [place] [address] CLIA: [id number] Concrete Carpenter: Hammad Cummings M.D. COMPREHENSIVE METABOLIC Collected: 07/20/2017 Status: F Source: [facility] PANEL 10:15 PM [facility] REPOSITORY TYPE CODE TESTS RESULT OUT OF REFERENCE UNITS RANGE LAB GLU 70-99 mg/dL High Glucose 138 Result Comment: This test result might be falsely depressed or falsely elevated on samples drawn from patients taking Sulfasalazine and Sulfapyridine. Venipuncture should occur prior to taking either of these drugs. LAB BUN 8-25 mg/dL BUN 12 LAB CREA 0.60-1.20 mg/dL Low Creatinine 0.59 LAB eGFR ml/min/1.73s q.m eGFR,NonAfrican-Am erican >=60 Result Comment: Non- GFR Calc eGFR is an estimated Glomerular Filtration Rate based on the value of the patient's serum creatinine. In outpatients, eGFR should be used as a helpful tool in screening for CKD. In inpatients or patients with acute renal failure, eGFR represents the GFR at the moment of the draw and should be used with caution. LAB eGFRB ml/min/1.73sq.m eGFR, -Vietnamese >=60 Result Comment: GFR Calc LAB CALCM 8.4-10.2 mg/dL Calcium 8.9 LAB NA 135-145 mmol/L Sodium 143 LAB K 3.5-5.1 mmol/L Potassium 3.7 LAB CL 98-108 mmol/L Chloride 102 LAB CO2 21-32 mmol/L CO2 High 37 LAB AST 0-45 U/L AST (SGOT) 30 Result Comment: This test result might be falsely depressed or falsely elevated on samples drawn from patients taking Sulfasalazine and Sulfapyridine. Venipuncture should occur prior to taking either of these drugs. LAB ALT 14-65 U/L ALT (SGPT) 28 Result Comment: This test result might be falsely depressed or falsely elevated on samples drawn from patients taking Sulfasalazine and Sulfapyridine. Venipuncture should occur prior to taking either of these drugs. LAB ALKP 40-150 U/L Alkaline High Phosphatase 159 LAB BILIT 0.3-1.2 mg/dL Bilirubin,Total 0.7 LAB PROT 6.0-8.0 g/dL Protein, Total 7.2 LAB ALB 3.2-5.2 g/dL Albumin 3.4 Performed By: #### NTPROBNP, PT, CBCDIF, CMET, PTT, EDCTNI #### Unless otherwise noted, all testing performed by [place] [address] CLIA: [id number] Concrete Carpenter: Hammad Cummings M.D. NT-PRO BNP, SERUM Collected: 07/20/2017 Status: F Source: [facility] 10:15 PM [facility] REPOSITORY TYPE CODE TESTS RESULT OUT OF REFERENCE UNITS RANGE LAB NTPROBNP 0-125 pg/mL High 596 NT-Pro BNP, Serum Performed By: #### NTPROBNP, PT, CBCDIF, CMET, PTT, EDCTNI #### Unless otherwise noted, all testing performed by [place] [address] CLIA: [id number] Concrete Carpenter: Hammad Cummings M.D. GLUCOSE, POC Collected: 07/19/2017 Status: F Source: [facility] 11:30 AM [facility] REPOSITORY TYPE CODE TESTS RESULT OUT OF RANGE REFERENCE UNITS LAB GLUX 80-115 mg/dL High Glucose, 208 POC Performed By: #### GLUX #### Unless otherwise noted, all testing performed by [place] [address] CLIA: [id number] Concrete Carpenter: Hammad Cummings M.D. GLUCOSE, POC Collected: 07/19/2017 Status: F Source: [facility] 8:08 AM [facility] REPOSITORY TYPE CODE TESTS RESULT OUT OF RANGE REFERENCE UNITS LAB GLUX 80-115 mg/dL High Glucose, 163 POC Performed By: #### GLUX #### Unless otherwise noted, all testing performed by [place] [address] CLIA: [id number] Concrete Carpenter: Hammad Cummings M.D. URINALYSIS, ROUTINE Collected: 07/18/2017 Status: F Source: [facility] 8:00 PM [facility] REPOSITORY TYPE CODE TESTS RESULT OUT OF REFERENCE UNITS RANGE LAB COLOR Normal Color, Urine Straw LAB CHAUR Normal Character Clear LAB SPGRUR 1.003-1.029 Normal Specific 1.003 [place],Urine LAB PHUR 4.5-8.0 Normal pH,Urine 5.0 LAB GLUCUR NEG;NEGATIVE mg/dL Normal Glucose,Urine Negative LAB KETUR NEG;NEGATIVE mg/dL Normal Ketone,Urine Negative LAB PROTUR NEG;NEGATIVE mg/dL Normal Protein,Urine Negative LAB BLDUR NEG;NEGATIVE Normal Blood,Urine Negative LAB NITUR NEG;NEGATIVE Normal Nitrite,Urine Negative LAB BILIUR NEG;NEGATIVE Normal Bilirubin,Urine Negative LAB UROUR <2 mg/dL Normal Urobilinogen,Ur < 2.0 ine LAB LEUESTUR Negative Normal Leuk.Esterase,U Negative rine LAB WBCUR 0-5 /HPF Normal WBC,Urine 1 LAB RBCUR 0-5 /HPF Normal RBC,Urine < 1 LAB SQEPI 0-40 /HPF Normal Squamous < 1 Epithelial LAB BACTUR NS;RARE /HPF Normal Bacteria,Urine Rare Performed By: #### UA #### Unless otherwise noted, all testing performed by [place] [address] CLIA: [id number] Concrete Carpenter: Hammad Cummings M.D. Observed: 07/18/2017 Status: F Source: [facility] CULTURE, URINE 8:00 PM [facility] REPOSITORY Test Name: Culture, Urine Culture Status: Final Culture Report: No significant growth. Micro Source: Urine Performed By: #### URCUL #### Unless otherwise noted, all testing performed by [place] [address] CLIA: [id number] Concrete Carpenter: Hammad Cummings M.D. GLUCOSE, POC Collected: 07/18/2017 Status: F Source: [facility] 7:40 PM [facility] REPOSITORY TYPE CODE TESTS RESULT OUT OF RANGE REFERENCE UNITS LAB GLUX 80-115 mg/dL High Glucose, 207 POC Performed By: #### GLUX #### Unless otherwise noted, all testing performed by [place] [address] CLIA: [id number] Concrete Carpenter: Hammad Cummings M.D. GLUCOSE, POC Collected: 07/18/2017 Status: F Source: [facility] 4:05 PM [facility] REPOSITORY TYPE CODE TESTS RESULT OUT OF RANGE REFERENCE UNITS LAB GLUX 80-115 mg/dL High Glucose, 174 POC Performed By: #### GLUX #### Unless otherwise noted, all testing performed by [place] [address] CLIA: [id number] Concrete Carpenter: Hammad Cummings M.D. GLUCOSE, POC Collected: 07/18/2017 Status: F Source: [facility] 11:48 AM [facility] REPOSITORY TYPE CODE TESTS RESULT OUT OF RANGE REFERENCE UNITS LAB GLUX 80-115 mg/dL High Glucose, 185 POC Performed By: #### GLUX #### Unless otherwise noted, all testing performed by [place] [address] CLIA: [id number] Concrete Carpenter: Hammad Cummings M.D. PROGRESS Observed: 07/18/2017 Status: COMPLETED Source: [place] 9:16 AM [facility] REPOSITORY HNO ID: [id number] Author: Lucy Vinson Service: (none) Author Type: Physician Flux Tube Attendant Type: Progress Notes Filed: 07/18/2017 9:20 AM Note Text: Diagnosis: Pharyngeal dysphagia Impressions: Damion Moyer demonstrates symptoms of penetration during evaluation and suspect continued pharyngeal dysphagia as documented on recent MBS. Recommendations: Regular diet with thin liquids (strict use of small sips) Swallow strategies: bolus volume change, alternate soft/liquids, effortful swallow Treatment with speech therapy 2 times a week for 12 weeks. GLUCOSE, POC Collected: 07/18/2017 Status: F Source: [facility] 8:19 AM [facility] REPOSITORY TYPE CODE TESTS RESULT OUT OF RANGE REFERENCE UNITS LAB GLUX 80-115 mg/dL High Glucose, 137 POC Performed By: #### GLUX #### Unless otherwise noted, all testing performed by [facility] [address] [place], [place] [address] CLIA: [id number] Concrete Carpenter: Hammad Cummings M.D. BASIC METABOLIC PANEL Collected: 07/18/2017 Status: F Source: [facility] 3:27 AM [facility] REPOSITORY TYPE CODE TESTS RESULT OUT OF REFERENCE UNITS RANGE LAB GLU 70-99 mg/dL High Glucose 140 Result Comment: This test result might be falsely depressed or falsely elevated on samples drawn from patients taking Sulfasalazine and Sulfapyridine. Venipuncture should occur prior to taking either of these drugs. LAB BUN 8-25 mg/dL BUN 16 LAB CREA 0.60-1.20 mg/dL Low Creatinine 0.59 LAB eGFR ml/min/1.73s q.m eGFR,NonAfrican-Am erican >=60 Result Comment: Non- GFR Calc eGFR is an estimated Glomerular Filtration Rate based on the value of the patient's serum creatinine. In outpatients, eGFR should be used as a helpful tool in screening for CKD. In inpatients or patients with acute renal failure, eGFR represents the GFR at the moment of the draw and should be used with caution. LAB eGFRB ml/min/1.73sq.m eGFR, -Vietnamese >=60 Result Comment: GFR Calc LAB CALCM 8.4-10.2 mg/dL Calcium 8.8 LAB NA 135-145 mmol/L Sodium 142 LAB K 3.5-5.1 mmol/L Potassium 3.6 LAB CL 98-108 mmol/L Chloride 103 LAB CO2 21-32 mmol/L CO2 32 Performed By: #### MG, CHEM8, CBCDIF #### Unless otherwise noted, all testing performed by [place] [address] CLIA: [id number] Concrete Carpenter: Hammad Cummings M.D. MAGNESIUM Collected: 07/18/2017 Status: F Source: [facility] 3:27 AM [facility] REPOSITORY TYPE CODE TESTS RESULT OUT OF RANGE REFERENCE UNITS LAB MG 1.6-2.4 mg/dL Normal Magnesium 2.3 Performed By: #### MG, CHEM8, CBCDIF #### Unless otherwise noted, all testing performed by [place] [address] CLIA: [id number] Concrete Carpenter: Hammad Cummings M.D. CBC WITH DIFF Collected: 07/18/2017 Status: F Source: [facility] 3:26 AM [facility] REPOSITORY TYPE CODE TESTS RESULT OUT OF REFERENCE UNITS RANGE LAB WBC 3.4-10.6 K/mcL WBC High 11.6 LAB RBC 3.7-5.0 M/mcL RBC 4.29 LAB HGB 11.6-15.4 g/dL Low Hemoglobin 11.1 LAB HCT 34.4-44.8 % Hematocrit 35.8 LAB MCV 82.6-98.9 FL MCV 83.4 LAB MCH 27.9-33.9 pg Low MCH 25.8 LAB MCHC 33.1-35.1 g/dL Low MCHC 30.9 LAB RDW 10.0-14.4 % RDW High 16.3 LAB PLT 162-402 K/mcL Platelet Count 242 LAB MPV 7.0-10.6 FL MPV 8.5 LAB NEUT# 1.2-6.9 K/mcL High Neutrophil # 9.0 LAB LYMPH# 1.0-3.7 K/mcL Lymphocyte # 1.7 LAB MONO# 0.1-0.6 K/mcL Monocyte High # 0.8 LAB EOS# 0-0.5 K/mcL Eosinophil # 0.1 LAB BASO# 0-0.2 K/mcL Basophil # 0.0 LAB SEGNEU% % Segmented Neut % 78.0 LAB LYMP% % Lymphocyte% 14.4 LAB MO% % Monocyte % 6.5 LAB EO% % Eosinophil % 0.8 LAB BA% % Basophil % 0.3 Performed By: #### MG, CHEM8, CBCDIF #### Unless otherwise noted, all testing performed by [place] [address] CLIA: [id number] Concrete Carpenter: Hammad Cummings M.D. GLUCOSE, POC Collected: 07/17/2017 Status: F Source: [facility] 8:18 PM [facility] REPOSITORY TYPE CODE TESTS RESULT OUT OF RANGE REFERENCE UNITS LAB GLUX 80-115 mg/dL High Glucose, 215 POC Performed By: #### GLUX #### Unless otherwise noted, all testing performed by [place] [address] CLIA: [id number] Concrete Carpenter: Hammad Cummings M.D. GLUCOSE, POC Collected: 07/17/2017 Status: F Source: [facility] 4:56 PM [facility] REPOSITORY TYPE CODE TESTS RESULT OUT OF RANGE REFERENCE UNITS LAB GLUX 80-115 mg/dL High Glucose, 219 POC Performed By: #### GLUX #### Unless otherwise noted, all testing performed by [place] [address] CLIA: [id number] Concrete Carpenter: Hammad Cummings M.D. GLUCOSE, POC Collected: 07/17/2017 Status: F Source: [facility] 11:44 AM [facility] REPOSITORY TYPE CODE TESTS RESULT OUT OF RANGE REFERENCE UNITS LAB GLUX 80-115 mg/dL High Glucose, 233 POC Performed By: #### GLUX #### Unless otherwise noted, all testing performed by [place] [address] CLIA: [id number] Concrete Carpenter: Hammad Cummings M.D. CARDIAC TROPONIN-I Collected: 07/17/2017 Status: F Source: [facility] 8:47 [facility] REPOSITORY TYPE CODE TESTS RESULT OUT OF RANGE REFERENCE UNITS LAB CTNI < 45.0 ng/L Normal Cardiac < 15 Troponin-I Result Comment: Elevation of troponin indicates some degree of myocardial necrosis but unless there is a significant rise and/or fall (if elevated) identified, it unlikely that an acute event has taken place Samples from patients routinely receiving high dose biotin therapy (100-300 mg/day) may show falsely decreased results. Please correlate clinically. LAB CTNINT Normal Cardiac No Troponin Comment Biomarker evidence of myocardial injury within the past 14 hours. Performed By: #### CTNI #### Unless otherwise noted, all testing performed by [place] [address] CLIA: [id number] Concrete Carpenter: Hammad Cummings M.D. GLUCOSE, POC Collected: 07/17/2017 Status: F Source: [facility] 7:46 [facility] REPOSITORY TYPE CODE TESTS RESULT OUT OF RANGE REFERENCE UNITS LAB GLUX 80-115 mg/dL High Glucose, 324 POC Performed By: #### GLUX #### Unless otherwise noted, all testing performed by [place] [address] CLIA: [id number] Concrete Carpenter: Hammad Cummings M.D. CARDIAC TROPONIN-I Collected: 07/17/2017 Status: F Source: [facility] 6:09 [facility] REPOSITORY TYPE CODE TESTS RESULT OUT OF RANGE REFERENCE UNITS LAB CTNI < 45.0 ng/L Normal Cardiac < 15 Troponin-I Result Comment: Elevation of troponin indicates some degree of myocardial necrosis but unless there is a significant rise and/or fall (if elevated) identified, it unlikely that an acute event has taken place Samples from patients routinely receiving high dose biotin therapy (100-300 mg/day) may show falsely decreased results. Please correlate clinically. LAB CTNINT Normal Cardiac No Troponin Comment Biomarker evidence of myocardial injury within the past 14 hours. Performed By: #### CTNI #### Unless otherwise noted, all testing performed by [place] [address] CLIA: [id number] Concrete Carpenter: Hammad Cummings M.D. CHEST PA AND LATERAL Observed: 07/17/2017 Status: F Source: [facility] 2:36 AM [facility] REPOSITORY Final Report Accession No: [id number] Performed: Jul 17 2017 2:36AM Examination: CHEST PA AND LATERAL CHEST PA AND LATERAL HISTORY: Shortness of breath. COMPARISON: Correlation is made with portable chest 07/16/2017 5:53 PM FINDINGS: Portable AP view of the chest is provided. Left- sided Mediport terminates at the venoatrial junction, unchanged from previous imaging. Cardiomediastinal silhouette is stable. There is decreasing vascular engorgement and interstitial edema. No new focal airspace consolidation is present. I suspect there are trace bilateral pleural effusions. No pneumothorax is identified. IMPRESSION: There is decreasing vascular engorgement and pulmonary edema. I suspect there are trace bilateral pleural effusions. Interpreting Physician: MADHAV CARLSON M.D. Trans: [email or web address] : cc: CBC WITH DIFF Collected: 07/17/2017 Status: F Source: [facility] 1:40 AM [facility] REPOSITORY TYPE CODE TESTS RESULT OUT OF RANGE REFERENCE UNITS LAB WBC 3.4-10.6 K/mcL WBC Normal 10.4 LAB RBC 3.7-5.0 M/mcL RBC Normal 4.41 LAB HGB 11.6-15.4 g/dL Low Hemoglobin 11.4 LAB HCT 34.4-44.8 % Normal Hematocrit 36.6 LAB MCV 82.6-98.9 FL MCV Normal 83.0 LAB MCH 27.9-33.9 pg Low MCH 25.9 LAB MCHC 33.1-35.1 g/dL Low MCHC 31.2 LAB RDW 10.0-14.4 % High RDW 16.3 LAB PLT 162-402 K/mcL Platelet Normal Count 226 LAB MPV 7.0-10.6 FL MPV Normal 8.8 LAB NEUT# 1.2-6.9 K/mcL High Neutrophil # 8.6 LAB LYMPH# 1.0-3.7 K/mcL Normal Lymphocyte # 1.0 LAB MONO# 0.1-0.6 K/mcL Monocyte Normal # 0.6 LAB EOS# 0-0.5 K/mcL Normal Eosinophil # 0.1 LAB BASO# 0-0.2 K/mcL Basophil Normal # 0.1 LAB SEGNEU% % Normal Segmented Neut % 82.8 LAB LYMP% % Normal Lymphocyte% 9.4 LAB MO% % Monocyte Normal % 6.0 LAB EO% % Normal Eosinophil % 1.1 LAB BA% % Basophil Normal % 0.7 Performed By: #### LIPASE, LA, CHEM8, NTPROBNP, CBCDIF, CMETADD, EDCTNI #### Unless otherwise noted, all testing performed by [place] [address] CLIA: [id number] Concrete Carpenter: Hammad Cummings M.D. ED CARDIAC TROPONIN-I Collected: 07/17/2017 Status: F Source: [facility] 1:39 AM [facility] REPOSITORY TYPE CODE TESTS RESULT OUT OF RANGE REFERENCE UNITS LAB EDCTNI < 45 ng/L Normal ED Cardiac < 15 Troponin-I Result Comment: Elevation of troponin indicates some degree of myocardial necrosis but unless there is a significant rise and/or fall (if elevated) identified, it unlikely that an acute event has taken place Samples from patients routinely receiving high dose biotin therapy (100-300 mg/day) may show falsely decreased results. Please correlate clinically. Performed By: #### LIPASE, LA, CHEM8, NTPROBNP, CBCDIF, CMETADD, EDCTNI #### Unless otherwise noted, all testing performed by [place] [address] CLIA: [id number] Concrete Carpenter: Hammad Cummings M.D. LACTIC ACID Collected: 07/17/2017 Status: F Source: [facility] 1:39 [facility] REPOSITORY TYPE CODE TESTS RESULT OUT OF RANGE REFERENCE UNITS LAB LA 0.6-2.0 mmol/L Normal Lactic Acid 1.0 Performed By: #### LIPASE, LA, CHEM8, NTPROBNP, CBCDIF, CMETADD, EDCTNI #### Unless otherwise noted, all testing performed by [address] [place], [place] [address] CLIA: [id number] Concrete Carpenter: Hammad Cummings M.D. BASIC METABOLIC PANEL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 Bowel: Diverticulosis is noted. There is mural thickening with mild pericolonic edema and inflammation involving the descending as well as the rectosigmoid colon. These findings are most pronounced along the mid descending colon on axial series 2 images 60 through 74. There is no drainable fluid collection or large volume pneumoperitoneum identified. The appendix is visualized. There are no secondary findings of acute appendicitis identified. Ascites: Absent Lymphadenopathy: Numerous prominent elie hepatis lymph nodes are identified measuring up to 1.2 cm short axis. Subcentimeter retroperitoneal lymph nodes are identified. Abdominal Wall and Mesentery: 6.8 x 1.4 cm fat attenuation lesion with surrounding scarring in the ventral subcutaneous tissues on the right may represent prior postsurgical change. A lipoma is also a diagnostic consideration. This does not appear to be acute. Patient body habitus makes the left flank and abdomen out of the gcyxw-bq-xsdp. Vasculature: The visualized abdominal aorta is normal in size and caliber. Multifocal atherosclerotic plaques are seen. Evaluation of abdominal and pelvic vessels is limited due to lack of intravenous contrast. Pelvic Organs: Unremarkable on CT imaging. Musculoskeletal: No aggressive focal bony lesions, acute fractures or dislocation. Severe degenerative changes of the right hip with extensive subchondral sclerosis and cystic formation within the acetabulum and in the femoral head. No acute fracture is seen. Degenerative changes of the spine at the level of L5 and S1. Vacuum phenomenon at L3-L4. Sclerotic focus in the right hemipelvis likely represents a bone island. IMPRESSION: Acute uncomplicated diverticulitis involving the descending and rectosigmoid colon as described above without drainable fluid collection or pneumoperitoneum. Bladder wall thickening. Correlation with laboratory values for infection is recommended. Hepatosplenomegaly. Small nodular densities at the lung bases as described may represent a degree of significant artifact or infectious/inflammatory small airways disease. Noncalcified granulomatous change is also a diagnostic consideration. Follow up per Fleischner criteria and continued attention on follow-up studies is recommended to demonstrate stability. Adrenal thickening versus left adrenal adenomatous change and probable right adrenal hyperplasia. CBC Collected: 04/04/2017 Status: F Source: [place] 8:26 PM SYSTEM ([place]) REPOSITORY TYPE CODE TESTS RESULT OUT OF REFERENCE UNITS RANGE LAB WBC 3.6-11.0 /cmm WBC COUNT 9.9 LAB RBC 4.0-5.4 /cmm RBC COUNT 4.27 LAB HGB 12.0-16.0 G/DL HEMOGLOBIN 12.0 LAB HCT 36.0-48.0 % HEMATOCRIT 37.3 LAB MCV 80.0-100.0 FL MCV 87.4 LAB MCH 26.0-35.0 PG MCH 28.1 LAB MCHC 27.0-37.0 G/DL MCHC 32.2 LAB RDW 11.5-14.5 % RDW High 16.2 LAB PLTC 130.0-400.0 /cmm PLATELET COUNT 213 LAB MPV 7.4-11.0 FL MPV 8.5 LAB DTYPE % DTYPE AUTO DIFF LAB NEUT 37.0-75.0 % High NEUTROPHIL 77.5 LAB LYMP 20.0-55.0 % Low LYMPHOCYTE 14.0 LAB AOMONO 0.0-10.0 % MONOCYTE 5.5 LAB EOS 0.0-11.0 % EOSINOPHIL 2.7 LAB BASO 0.0-2.0 % BASOPHIL 0.3 LAB ANC 1.0-7.0 x10 ABSOLUTE High NEUTROPHIL COUNT 7.6 LAB ALYM X10 ABSOLUTE LYMPHOCYTE 1.40 LAB AMONO X10 ABSOLUTE MONOCYTE 0.5 LAB AEO X10 ABSOLUTE EOS 0.30 LAB ABAS X10 ABSOLUTE BAS 0.0 Performed By: #### ACBC, ITROT, CMPF, LIPA2 #### Testing performed at [address] [address] ISTAT TROPONIN I Collected: 04/04/2017 Status: F Source: [place] 8:26 PM SYSTEM ([place]) REPOSITORY TYPE CODE TESTS RESULT OUT OF REFERENCE UNITS RANGE LAB ITRO 0-0.08 ng/mL ISTAT TROPONIN <0.02 I Performed By: #### ACBC, ITROT, CMPF, LIPA2 #### Testing performed at [address] [address] CMP FASTING Collected: 04/04/2017 Status: F Source: [place] 8:26 PM SYSTEM ([place] REPOSITORY TYPE CODE TESTS RESULT OUT OF REFERENCE UNITS RANGE LAB GLF 70-100 MG/DL High GLUCOSE 167 FASTING Result Comment: NORMAL <100 mg/dL PREDIABETES 101-126 mg/dL DIABETES 126 mg/dL or higher LAB BUN 7-20 MG/DL BLOOD UREA NITROGEN 14 LAB CRET 0.52-1.04 MG/DL CREATININE SERUM 0.7 LAB NA 137-145 MMOL/L SODIUM 140 LAB K 3.5-5.1 MMOL/L POTASSIUM 3.6 LAB CL 98-107 MMOL/L CHLORIDE 100 LAB CA 8.4-10.2 MG/DL CALCIUM 8.9 LAB TP 6.3-8.2 GM/DL TOTAL PROTEIN 6.8 LAB ALB 3.5-5.0 G/dl ALBUMIN 3.8 LAB TBIL 0.2-1.2 MG/DL BILIRUBIN TOTAL 1.0 LAB AST 15-41 IU/L AST 30 LAB ALKP 38-126 IU/L ALK PHOSPHATASE 112 LAB CO2 22-30 MMOL/L CO2 High 33 LAB AG 1.3-2.2 RATIO A:G RATIO 1.3 LAB ALT 14-54 IU/L ALT 29 LAB GFR ml/min/1.73 sq.m EST. GFR,Non >60 LAB GFRB ml/min/1.73 sq.m EST. GFR, >60 Vietnamese LAB GFRCOM GFR Information Average GFR for 70+ years old = 75. Result Comment: Chronic Kidney disease, GFR = <60. Kidney failure, GFR = <15. The GFR estimate is not adjusted for extreme body surface area or acute process, nor has it been validated for women or ethnic groups other than and . Performed By: #### ACBC, ITROT, CMPF, LIPA2 #### Testing performed at [address] [address] LIPASE,SERUM Collected: 04/04/2017 Status: F [facility] [place] REPOSITORY TYPE CODE TESTS RESULT OUT OF RANGE REFERENCE UNITS LAB LIPA2 23-300 U/L 38 LIPASE,SERUM Performed By: #### ACBC, ITROT, CMPF, LIPA2 #### Testing performed at [address] [address] LACTIC ACID Collected: 04/04/2017 Status: F [facility] ([place] REPOSITORY TYPE CODE TESTS RESULT OUT OF REFERENCE UNITS RANGE LAB ALACT 0.5-2.2 MMOL/L LACTIC ACID 1.5 Performed By: #### LACT #### Testing performed at [address] [address] ALLERGIES ALLERGIES DATE TYPE / CODE NAME / CODE REACTION SEVERITY SOURCE 03/31/19 Drug promethazine Nausea Unknown [place] 19 Allergy/028407763 HCl/F536572755(RXNO [facility] (SNOMED CT) ) Hospital Repository 03/31/19 Drug amoxicillin Hives Unknown [place] 19 Allergy/930525403 trihydrate/K3371483 Community (SNOMED CT) 07(RXNORM) Hospital Repository 03/31/19 Drug potassium Hives Unknown [place] 19 Allergy/031423254 clavulanate/Z542266 [facility] (SNOMED CT) 809(RXNORM) Hospital Repository 03/31/19 Drug Metronidazole Hives Unknown [place] 19 Allergy/157866090 HCl/G038868903(RXNO [facility] (SNBioenvision CT) ) Hospital Repository 03/31/19 Drug diphenhydramine i could crawl Unknown [place] 19 Allergy/508814875 HCl/U279686185(RXNO to the ceiling Community (SNOMED CT) RM) Hospital Repository 03/31/19 Drug Penicillins/Q285313 Hives Unknown [place] 19 Allergy/827194861 476(RXNORM) [facility] (SNOMED CT) Hospital Repository 03/31/19 Drug Latex, Natural Rash Unknown [place] 19 Allergy/031503102 Rubber/I842641459(R Community (SNOMED CT) XNORM) Hospital Repository 03/31/19 Drug sulfamethoxazole/F0 Hives Unknown [place] 19 Allergy/265358113 40960944(RXNORM) [facility] (SNOMED CT) Hospital Repository 03/31/19 Drug trimethoprim/B34635 Hives Unknown [place] 19 Allergy/395673996 2873(RXNORM) [facility] (SNOMED CT) Hospital Repository 03/31/19 Drug metronidazole/F0060 Hives Unknown [place] 19 Allergy/933407090 64351(RXNORM) [facility] (SNOMED CT) Hospital Repository 03/31/19 Drug adhesive/R863368513 Itching Unknown [place] 19 Allergy/386972159 (RXNORM) [facility] (SNOMED CT) Hospital Repository 03/31/19 Drug adhesive Rash Unknown [place] 19 Allergy/664375705 tape/L655106515(RXN Community (SNOMED CT) ORM) Hospital Repository 03/31/19 Drug omeprazole/Q5097773 Nausea Unknown [place] 19 Allergy/398741857 76(RXNORM) [facility] (SNOMED CT) Hospital Repository 03/31/19 Drug latex/X149873614(RX Rash Unknown [place] 19 Allergy/936391523 NORM) [facility] (SNOMED CT) Hospital Repository 03/31/19 Miscellaneous antihistamine i could crawl Unknown [place] 19 Allergy/236440241 to the ceiling [facility] (SNOMED CT) Hospital Repository 03/31/19 Miscellaneous cat scan dye Anaphylaxis Unknown [place] 19 Allergy/373039682 [facility] (SNOMED CT) Hospital Repository 04/24/19 DRUG/140173740(SN AMOXICILLIN-POT [place] [address]) CLAVULANATE Three Repository 04/24/19 DRUG DIPHENHYDRAMINE [place] [address] INGREDI/997074293 Three (SNOMED CT) Repository 04/24/19 DRUG LATEX [facility] 17 INGREDI/623436960 Three (SNOMED CT) Repository 04/24/19 DRUG PROMETHAZINE [facility] 17 INGREDI/511776137 Three (SNOMED CT) Repository 10/11/[address]: IODINATED Anaphylaxis [facility] 16 Class/932756084(S CONTRAST- ORAL AND Three NOMED CT) IV DYE Repository 10/11/19 Drug IODINATED CONTRAST- ANAPHYLAXIS [facility] 16 Class/261474160(S ORAL AND IV DYE Clinic Main NOMED CT) [place] Repository 11/05/19 DRUG/673244574(SN SULFAMETHOXAZOLE-TR [facility] [address]) IMETHOPRIM Three Repository 11/05/19 DRUG/371752098(SN SULFAMETHOXAZOLE-TR [facility] [address]) IMETHOPRIM Clinic Main [place] Repository 09/18/19 DRUG PROMETHAZINE [facility] 14 INGREDI/333901567 Clinic Main (SNOMED CT) [place] Repository 08/26/19 DRUG METRONIDAZOLE Hives [facility] 13 INGREDI/290737553 Three (SNOMED CT) Repository 08/26/19 DRUG METRONIDAZOLE HIVES [facility] 13 INGREDI/413761013 Clinic Main (SNOMED CT) [place] Repository 03/14/19 DRUG DIPHENHYDRAMINE HCL OTHER: SEE C Bhatt 13 INGREDI/938120718 Clinic Main (SNOMED CT) [place] Repository 03/24/19 Drug ADHESIVE Itching [facility] 11 Class/401499530(S Three NOMED CT) Repository 03/24/19 DRUG ADHESIVE RASH [facility] 11 INGREDI/573471890 Clinic Main (SNOMED CT) [place] Repository 12/16/19 DRUG/211362828(SN AMOXICILLIN-POT [facility] [address]) CLAVULANATE Clinic Main [place] Repository 12/16/19 Drug ANTIHISTAMINES Mental Chg [facility] 05 Class/496646479(S Clinic Main NOMED CT) [place] Repository 12/16/19 Environ/087209976 LATEX RASH [facility] 05 (SNOMED CT) Clinic Main [place] Repository ENCOUNTERS ENCOUNTERS ADMIT/DISCHARGE ACCOUNT NUMBER ADMITTING ENCOUNTER LOCATION SOURCE CLASS 03/31/2018/03/31/19 [id number] Emergency [address] ding:ED Repository 03/31/2018 [id number] Ambulatory [facility] ding:SDC Repository 03/19/2018/03/19/19 [id number] Ambulatory [address] Main [place] Repository 03/19/2018/03/19/19 [id number] Ambulatory [address] Main [place] Repository 03/13/2018/03/13/19 [id number] Emergency [address] ding:ED Repository 02/21/2018 [id number] Ambulatory [address] [place] [address] ([place]) Repository 02/20/2018 [id number] Ambulatory [facility] ding:RAD.FUT Repository URE 02/20/2018/02/21/20 [id number] Ambulatory [address] Main [place] Repository 02/17/2018/02/18/20 [id number] Emergency BBuilding:JUSTICE Bright [address] [place] [address] Repository 02/12/2018/02/13/20 [id number] Ambulatory [address] Main [place] Repository 02/12/2018/02/13/20 [id number] Ambulatory [address] Main [place] Repository 01/28/2018/01/30/20 [id number] Ambulatory [address] Main [place] Repository 01/28/2018/01/30/20 [id number] Ambulatory [address] Main [place] Repository 01/27/2018/01/30/20 [id number] Ambulatory [address] Main [place] Repository 01/21/2018/01/22/20 [id number] Ambulatory [address] Main [place] Repository 01/13/2018 [id number] Ambulatory [facility] ding:LABSPEC Repository 01/02/2018/01/04/20 [id number] Ambulatory [place] [facility] Main [place] Repository 01/02/2018/01/03/20 [id number] Ambulatory [address] Main [place] Repository 01/02/2018/01/04/20 [id number] Ambulatory [place] 18 [facility] Main [place] Repository 01/02/2018/01/04/20 [id number] Ambulatory [place] 18 [facility] Main [place] Repository 12/26/2017/12/27/19 [id number] Emergency BBuilding:JUSTICE Lin [facility] Repository 12/25/2017/12/26/19 [id number] Ambulatory [address] Repository 12/25/2017/12/26/19 [id number] Ambulatory [address] Repository 12/24/2017 [id number] Ambulatory [facility] ding:LABSPEC Repository 12/24/2017/01/07/20 [id number] Ambulatory [address] Repository 12/18/2017/12/20/19 [id number] Ambulatory [address] Repository 12/18/2017/12/19/19 [id number] Ambulatory BMSBuilding: [place] 18 BMS.[facility] Repository 12/12/2017 [id number] [facility] ding:OLS.WHL Repository TCC 12/05/2017 [id number] Ambulatory [facility] ding:OLS.WHL Repository TCC 11/28/2017 [id number] Ambulatory [facility] ding:OLS.WHL Repository TCC 11/22/2017/11/27/19 [id number] BREANN REGALADO., Inpatient BBuilding:MS Kvng Lin MD. TIERNEY Castro URRoom: [place] [address]Bed: [facility] Repository 11/22/2017 [id number] Ambulatory [address] [place] [address] ([place]) Repository 11/18/2017/11/21/19 [id number] Cricket Ambulatory [place] ding:OZ9Ngow Repository : LD708Hsf: 1 11/18/2017 [id number] Cricket, Ambulatory BMSBuilding: [place] BMS.[facility] Repository 11/18/2017 [id number] Cricket Ambulatory BMSBuilding: [place]ano BMS.[facility] Repository 11/18/2017 [id number] Cricket Ambulatory BMSBuilding: [place] Dano BMS.[facility] Repository 11/18/2017/11/19/19 [id number] Ambulatory [address] Repository 11/18/2017/11/20/19 [id number] Ambulatory [address] Repository 11/14/2017/11/15/19 [id number] Ambulatory [address] Main [place] Repository 11/14/2017/11/15/19 [id number] Ambulatory [address] Main [place] Repository 11/14/2017/11/15/19 [id number] Ambulatory [address] Main [place] Repository 11/14/2017/11/15/19 [id number] Ambulatory [address] Main [place] Repository 11/06/2017/11/07/19 [id number] Emergency [facility] [place] [address] DRoom: System ([place]) S413Gct: Repository E014 11/05/2017/11/06/19 [id number] Ambulatory [address] Main [place] Repository 11/01/2017/11/13/19 [id number] Ambulatory [address] Main [place] Repository 11/01/2017/11/06/19 [id number] Ambulatory [address] Main [place] Repository 10/28/2017/10/31/19 [id number] Ambulatory [address] Main [place] Repository 10/24/2017/10/25/19 [id number] Ambulatory [address] Main [place] Repository 10/24/2017/11/07/19 [id number] Ambulatory [address] Main [place] Repository 10/17/2017/10/19/19 [id number] Ambulatory [address] [place] Repository 10/16/2017/10/18/[id number] Augustus Ambulatory [address] lding:B38 [facility] LabRoom: [place] [address]Bed: [facility] Repository [id number] 10/11/2017/10/12/19 [id number] Emergency [place] [address] [place] [address] ding:ED Repository 10/11/2017/10/15/19 [id number] Ambulatory [address] Main [place] Repository 10/03/2017 [id number] Ambulatory [facility]P [facility] ([place] Repository 09/09/2017/09/11/19 [id number] Ambulatory [address] Main [place] Repository 09/04/2017/09/06/19 [id number] Ambulatory [address] Main [place] Repository 08/28/2017/08/29/19 [id number] Susi, [place] [address] Dr[address] Gutierrez lding:B23 [facility] Afshan m: B23 [facility] 2303Bed: B23 Repository [id number] 08/28/2017 [id number] Susi, [facility] Dr. Matt Dur[facility] Repository 08/13/2017/08/15/19 [id number] Ambulatory [address] Repository 08/13/2017/08/15/19 [id number] Ambulatory [address] Repository 08/13/2017/08/14/19 [id number] Ambulatory [address] Repository 08/11/2017/08/12/[id number] Jm Emergency [address] lding:A1E [facility] DeptRoom: [place] [address]E U2WBEml: Repository A1E A1EH12 07/30/2017/08/01/19 [id number] Ambulatory [address] Repository 07/29/2017/08/01/19 [id number] Ambulatory [address] Repository 07/29/2017 [id number] Ambulatory BMSBuilding: [place] BMS.[facility] Repository 07/29/2017/07/31/19 [id number] Ambulatory [address] Repository 07/26/2017/07/31/19 [id number] Ambulatory [address] Repository 07/20/2017/07/23/[id number] Valente Ambulatory [place] [address] Cristian Maria lding:A20B [facility] : A20B [facility] 2010Bed: Repository A20B 07/17/2017/07/18/[id number] Valente Emergency [place] [address] Cristian Maria lding:A1E [facility] Rosa Cavanaugh DeptRoom: [place] [address] K6ABCst: Repository A1E A1ED04 07/16/2017/07/17/19 [id number] Emergency [facility] [place] [address] DRoom: System ([place]) H317Ewg: Repository E008 07/16/2017/07/18/19 [id number] Ambulatory [address] Repository 07/16/2017/07/17/19 [id number] Ambulatory [address] Repository 07/12/2017/07/17/19 [id number] Ambulatory [address] Repository 07/12/2017 [id number] Ambulatory Buildin [employer] ([place]) Repository 07/10/2017 [id number] Ambulatory BuildinS [facility] ([place]) Repository 07/02/2017 [id number] Ambulatory [facility] Repository 06/26/2017 [id number] Ambulatory BMSBuilding: [place] BMS.[facility] Repository 06/26/2017 [id number] Ambulatory BuildinC [employer] ([place]) Repository 06/25/2017/06/26/19 [id number] Ambulatory [address] Repository 06/25/2017/06/26/19 [id number] Ambulatory [address] Repository 06/25/2017/06/27/19 [id number] Ambulatory [address] Repository 06/24/2017 [id number] Ambulatory BMS [facility] Repository 06/20/2017 [id number] Ambulatory BMSBuilding: [place] BMS.[facility] Repository 06/20/2017 [id number] Ambulatory BMSBuilding: [place] BMS.[facility] Repository 06/19/2017/06/20/19 [id number] Emergency [facility] [place] [address] DRoom: [place] ([place]) G515Gfl: Repository E015 06/19/2017 [id number] Ambulatory Buildin [employer] ([place]) Repository 06/13/2017/06/14/19 [id number] Ambulatory Building:[place] [address] [employer] Three MBO Repository 06/12/2017 [id number] Ambulatory BuildinC [employer] ([place]) Repository 06/07/2017/06/20/19 [id number] Ambulatory [address] Repository 06/07/2017/06/20/19 [id number] Ambulatory [address] Repository 06/06/2017/06/20/19 [id number] Ambulatory [address] Repository 05/26/2017/05/27/19 [id number] Emergency [facility]in[address] [place] [address] DRoom: System ([place]) EHLBBed: Repository EHLB 05/24/2017/05/25/19 [id number] Ambulatory [address] Repository 05/08/2017 [id number] Ambulatory Buildin[address] [place] [address] System ([place]) Repository 05/08/2017/05/10/19 [id number] Ambulatory [address] Repository 05/05/2017/05/05/19 [id number] Emergency [facility]in[address] [place] [address] DRoom: System ([place]) P781Fip: Repository E010 04/11/2017/04/11/19 [id number] Ambulatory [address] Repository 04/08/2017/04/08/19 [id number] Ambulatory [address] Repository 04/08/2017/04/10/19 [id number] Ambulatory [address] Repository 04/04/2017/04/05/19 [id number] Emergency [facility] [place] [address] DRoom: System ([place]) Y331Hwf: Repository E001 PAYERS PAYERS ENCOUNTER GUARANTOR PAYER SUBSCRIBER SOURCE 03/31/2018 LAV[place]NE Primary DAMION Vizcaino [id number] [facility] [address]OM [address]T *IN [address] Number: Repository [address]Buk: 330 [id number] [phone] () Date:[id number] CLAIMS DEPO [facility] [address] [place] [id number]: 03/31/2018 Secondary NOT GIVENUNK [place] Insurance:SELF PAY [facility] Number: Effective Repository Date:2018-03-31 03/31/2018 LAVONNE Primary DAMION Vizcaino [id number] Insurance[facility] Community [address] *IN [place] [address] Number: Repository [address]Dtc: 330 [id number] [phone] () Date:[id number] CLAIMS [address] [place] [phone]: 03/31/2018 Secondary NOT GIVENUNK [place] Insurance:SELF PAY [facility] Number: Effective Repository Date:2018-03-24 03/13/2018 LAVONNE Primary LAVONNE [place] [id number] [facility] KEETONDOB: Community TOM [address] *[facility] [id number] Number: Repository [address]Ccz: [phone] [id number] [phone] (HP) Date:2477-01-77QCUH CLAIMS [address], [place] [phone]: 03/13/2018 Secondary NOT GIVENUNK [place] Insurance:SELF PAY [facility] Number: Effective Repository Date:2018-03-13 02/20/2018 LAVONNE Primary LAVONNE [place] [id number] Insurance:ANTHEM ERNESTODOB: Community TOM RD[address]T MEDICARE [facility] [id number] ADVANTAPoly Number: Repository [address]Evi: 330 [id number] [phone] () Date:2755-12-32[address]J [id number] [place] [address]CZ: 02/20/2018 Secondary LAVONNE [place] Insurance:MEDICAIDPol KEETONDOB: [facility] icy Number: [id number] Hospital [id number] Repository Date:2018-02-14 02/20/2018 Tertiary NOT GIVENUNK [place] Insurance:SELF PAY [facility] Number: Effective Repository Date:2018-02-14 02/17/2018 LAVONNE Primary [facility]NE [facility] Insurance:ANTHEM KEETONDOB: Foundation [id number] [facility]IBLUE [facility] [id number] [address] Number: [address] [id number] [address] [address]~Tel: ([phone]) Date:2018-02-17 18504Lvx: [id number] 60 ()Tel: ([phone]) Name:NPO BOX ([place]) () [id number] [place] [address] 000-0000 () [phone]: 02/17/2018 Secondary LAVONNEFlavia [facility] Insurance:MEDICAID [facility]: [facility] [id number] Repository Number: [address] [id number] [address] Date:2018-02-17 [address]Vcv: [phone] [phone] Name:VERONIKA WASHBURN Box ([place])Tel: [phone], [place] 000-0000 () [phone]: 01/13/2018 LAVONNE Primary LAVONNE [place] [id number] Insurance:[facility]: Community [address] MEDICARE SENIOR [id number] ADVANTAPolicy Number: Repository [id number]: 330 [id number] [phone] () Date:8517-82-07[address] [place] [address] 99975IP: 01/13/2018 Secondary LAVONNE [place] Insurance:MEDICAIDPol KEETONDOB: [facility] ic Number: [id number] Hospital [id number] Repository Date:2018-01-13 01/13/2018 Tertiary NOT GIVENUNK [place] Insurance:SELF PAY [facility] Number: Effective Repository Date:2018-01-13 12/26/2017 LAVONNE Primary [facility]NE [facility] [id number] Repository tom rdapt Number: 6 [address] [id number] [address] [address]~Tel: [phone]) Date:2017-12-26 89495Pix: [id number] 60 (HP)Tel: (999) Name:NPO ROSA ELENA () (WP) [id number] [place] [address] 000-0000 (WP) [phone]: 12/26/2017 Secondary LAVONNEFlavia [facility] Insurance:MEDICAID [facility]: [facility] Number: [id number] Repository [id number] 6 tom rdapt Date:2017-12-26 - [address] 1569-75-41Voxk [address]Kjf: (330) Name:VERONIKA WASHBURN [place] [address] [address]Rdvplobm, [place] ()Tel: [phone]) [phone]: (WP) [phone] 12/24/2017 LAVONNE Primary LAVONNE Carrillo [id number] Insurance:[facility]: Community [address] MEDICARE SENIOR [id number] ADVANTAPolicy Number: Repository [id number]: [phone]) [id number] [phone] () Date:9807-19-28RB[address] [address]QL: 12/24/2017 Secondary LAVONNE [place] Insurance:MEDICAIDPol KEETONDOB: [facility] Number: [id number] Hospital [id number] Repository Date:2017-12-24 12/24/2017 Tertiary NOT GIVENUNK [place] Insurance:SELF PAY [facility] Number: Effective Repository Date:2017-12-24 12/18/2017 LAVONNE Primary LAVONNE Carrillo [id number] Insurance:ANTHEM [facility]: Community [address] MEDICARE [facility] [id number] ADVANTAPolicy Number: Repository [id number]: [phone]) [id number] [phone] () Date:5287-99-11WE [address] [place] [address] 59[address]HS: 12/18/2017 Secondary DAMION Vizcaino [facility] Hospital[facility]: Community icy Number: [id number] Hospital [id number] Repository Date:2017-12-09 12/18/2017 Tertiary NOT GIVENUNK [place] Insurance:SELF PAY [facility] Number: Effective Repository Date:2017-12-18 12/12/2017 LAVONNE Primary NOT GIVENUNK [place] [id number] Insurance:SELF PAY Community [address], [place] Number: Effective Repository [phone]: (330) Date:2017-12-12 60-4 () 12/05/2017 LAVONNE Primary NOT GIVENUNK Carrillo [id number] Insurance:SELF PAY [facility] [address] Number: Effective Repository [phone]: (330) Date:2017-12-05 60 () 11/28/2017 LAVONNE Primary NOT GIVENUNK Carrillo [id number] Insurance:SELF PAY [facility] [address] [place] Number: Effective Repository [phone]: (330) Date:2017-11-28 60 () 11/22/2017 DAMION Alejandro Primary [facility]ION Bright [facility] Insurance:ANTHEM [facility] [id number] [facility] [id number] Repository tom rdapt Number: [address] [id number] [address] [address]~Tel: (330) Date:2017-11-22 58611Cvy: [id number] [phone] ()Tel: ([phone]) Name:MARY CUBA () () 762333BMPJNOW, [place] 000-0000 (WP) [address]FY: 11/22/2017 Secondary DAMION [facility] Insurance:MEDICARE [facility]: [facility] Number: [id number] Repository [id number] 6 tom rdapt Date:2017-11-[address] 7140-77-52Cesk 59[address]Txn: (330) Name:Dudley HAMILTON [phone] [address] (HP)Tel: 000 977[address]Aeiyqyqd, [place] 000-0000 (WP) [address]UR: 11/22/2017 Tertiary DAMION Bright [facility] Insurance:MEDICAID [facility]: [facility] Number: [id number] Repository [id number] 6 tom rdapt Date:2017-11-[address] 8941-25-52Vinu 48[address]Mmv: (330) Name:VERONIKA WASHBURN [phone] 341622Bstplfeh, [place] ()Tel: 000) [phone]: (WP) [phone] 11/18/2017 LAVONNE Primary LAVONNEFlavia Vizcaino [id number] [facility] Community [address] MEDICARE [facility] [id number] ADVANTAPolicy Number: Repository [id number]: [phone]) [id number] [phone] (HP) Date:6100-89-92[address]REGXETP, [place] [address]GZ: 11/18/2017 Secondary LAVONNE [place] [facility] Number: [id number] Hospital [id number] Repository Date:2017-11-18 11/18/2017 Tertiary NOT GIVENUNK [place] Insurance:SELF PAY [facility] Number: Effective Repository Date:2017-11-18 11/18/2017 LAVONNE Primary LAVONNE Carrillo [id number] Insurance:ANTHEM [facility]: Community [address] MEDICARE SENIOR [id number] ADVANTAPolicy Number: Repository [id number]: (330) [id number] [phone] (HP) Date:9896-11-84WC [address]ER[address] [place] [address] 97288PX: 11/18/2017 Secondary LAVONNE Carrillo Insurance:MEDICAIDPol KEETONDOB: Community icy Number: [id number] Hospital [id number] Repository Date:2017-11-18 11/18/2017 Tertiary NOT GIVENUNK [place] Insurance:SELF PAY [facility] Number: Effective Repository Date:2017-11-18 11/18/2017 LAVONNE Primary LAVONNE Carrillo [id number] Insurance:ANTHEM KEETONDOB: Community [address] MEDICARE SENIOR [id number] ADVANTAPolicy Number: Repository [id number]: (330 [id number] [phone] () Date:7659-82-34QW [address]GBVQIAB, [place] [address]LE: 11/18/2017 Secondary LAVONNE Carrillo Insurance:MEDICAIDPol KEETONDOB: Community icy Number: [id number] Hospital [id number] Repository Date:2017-11-18 11/18/2017 Tertiary NOT GIVENUNK [place] Insurance:SELF PAY [facility] Number: Effective Repository Date:2017-11-18 11/18/2017 LAVONNE Primary LAVONNE Carrillo [id number] Insurance:ANTHEM KEETONDOB: Community [address] MEDICARE SENIOR [id number] ADVANTAPolicy Number: Repository [id number]: (330 [id number] [phone] (HP) Date:1473-47-78ZT [address]KVCFJQF, [place] [address]OM: 11/18/2017 Secondary LAVONNE [place] Insurance:MEDICAIDPol KEETONDOB: Community icy Number: [id number] Hospital [id number] Repository Date:2017-11-18 11/18/2017 Tertiary NOT GIVENUNK [place] Insurance:SELF PAY [facility] Number: Effective Repository Date:2017-11-18 10/16/2017 Primary LAVONNE [facility] Insurance:Blue Cross KEETONDOB: Leeanna and CarolinaPolicy Number: [id number] [facility] [id number] [facility] Repository Date:Plan LOT#[address], Name[facility] [address]Kox: 4944[address]Eqthcan, [place] [address]AO: [phone] () [phone] 10/11/2017 LAVONNE [id number] Primary LAVONNE Carrillo [address] Insurance:YUKI MOYERDOB: Community [address] [place] [address] MEDICARE SENIOR [id number] Hospital [address]Rrt: (807) ADVANTAPolicy Number: Repository [phone] () [id number] Date:4481-20-98WM [address]UDNQJZL, [place] [address]OR: 10/11/2017 Secondary LAVONNE Carr[place] Insurance:MEDICAIDPol TARATOMDOB: Community icy Number: [id number] Hospital [id number] Repository Date:2017-10-11 10/11/2017 Tertiary NOT GIVENUNK [place] Insurance:SELF PAY [facility] Number: Effective Repository Date:2017-10-11 08/28/2017 Primary LAVONNE [facility] Insurance:Blue Cross TARAETONDOB: Nohelia Number: [id number] [facility] [id number] [facility] Repository Date:Plan LOT#CECILIO, Name:[facility] [address] [place] [address]Kks: 354811Quiakfw, [place] [id number]: [phone]) (HP) [phone] 08/28/2017 Secondary LAVONNE [facility] Insurance:MedicaidPol TARAETONDOB: Leeanna and icy Number: [id number] [facility] [id number] [facility] Repository Date:Plan Name:Health LOT[address] [address]Hxo: (HP) 08/28/2017 Primary LAVONNE [facility] Insurance:Blue Cross KEETONDOB: JovanPolicy Number: [id number] [facility] [id number] [address] Repository Date:Plan LOT#CECILIO, [facility] [address]Ppz: [id number] [place] [address]23[address]CP: [phone]) () [phone] 08/11/2017 Primary LAVONNE [facility] Insurance:Blue Cross KEETONDOB: [facility] Number: [id number] [facility] [id number] [address] Repository Date:Plan [facility], Name:Health [place] [address]Ibg: 309851QwghkffHUNGERFORD, [place] [address]YZ: [phone] () [phone] 08/11/2017 Secondary LAVONNE [facility] Insurance:MedicaidPol [facility] Number: [id number] [facility] [id number] [address] Repository Date:Plan Name:Health [place], [place] [address]Pdg: () 07/29/2017 LAVONNE [id number] Primary LAVONNE Carrillo [address] Insurance:MEDICARE [facility]: [address] PART A BPolicy [id number] Hospital [address]Jqg: 564) Number: Repository [phone] () [id number] Date:2017-05-23 07/29/2017 Secondary LAVONNE [place] Insurance:MEDICAIDPol KEETONDOB: Community icy Number: [id number] Hospital [id number] Repository Date:2017-05-23 07/29/2017 Tertiary NOT GIVENUNK [place] Insurance:SELF PAY [facility] Number: Effective Repository Date:2017-05-23 07/20/2017 Primary LAVONNE [facility] Insurance:Blue Cross KEETONDOB: JovanWiltonleonel Number: [id number] [facility] [id number] [address] Repository Date:Plan [facility], Name:[facility] [address]Ifm: 082247Wvjazdf, [place] [address]WE: [phone] () [phone] 07/20/2017 Secondary LAVONNE [facility] Insurance:MedicaidPol TARAETONDOB: Leeanna [facility] icleonel Number: [id number] [facility] [id number] [address] Repository Date:Plan Name:Health LOT[address], [place] [address]Vlp: () 07/17/2017 Primary LAVONNE [facility] Insurance:Blue Cross KEETONDOB: Leeanna and 332Policy Number: [id number] [facility] [id number] [address] Repository Date:Plan LOT[facility], Name:[facility] [address]Gty: 438497Qpclrnb, [place] [address]JZ: [phone]) () [phone] 06/26/2017 DAMION MOYER630 Primary LAVONNE Carrillo [address] Insurance:ANTHEM ERNESTOB: [address] MEDICARE SENIOR [id number] Hospital [address]Aws: (365) ADVANTAPolicy Number: Repository [phone] () [id number] Date:9292-88-48SP [address]YWMLVQE[address] [place] [address] 207[address]UP: 06/26/2017 Secondary LAVONNE [place] Insurance:MEDICAIDPol KEETONDOB: Community icy Number: [id number] Hospital [id number] Repository Date:2017-02-18 06/26/2017 Tertiary NOT GIVENUNK [place] Insurance:SELF PAY [facility] Number: Effective Repository Date:2017-06-25 06/24/2017 LavonneFlavia [id number] Primary LAVONNE Carrillo [address] Insurance:ANTHEM KETOMDOB: [address] MEDICARE SENIOR [id number] Hospital [address]Syv: (023) ADVANTAPolicy Number: Repository [id number] () [id number] Date:0919-09-14PQ[address] [address]KG: 06/24/2017 Secondary Lavonne Carrillo Insurance:MEDICAIDPol Ke[place]DOB: Community icy Number: [id number] Hospital [id number] Repository Date:2017-06-24 06/24/2017 Tertiary NOT GIVENUNK [place] Insurance:SELF PAY [facility] Number: Effective Repository Date:2017-06-24 06/20/2017 Damion Moyer630 Primary LAVONNE [place] [address] Insurance:ANTHEM KEETONDOB: Community [address], [place] MEDICARE SENIOR [id number] Hospital [address]Rgd: (947) ADVANTAPolicy Number: Repository [phone] () [id number] Date:1048-19-72HU[address] [address]CX: 06/20/2017 Secondary Lavonne Carrillo Insurance:MEDICAIDPol KeetonDOB: [facility] icy Number: [id number] Hospital [id number] Repository Date:2017-06-20 06/20/2017 Tertiary NOT GIVENUNK [place] Insurance:SELF PAY [facility] Number: Effective Repository Date:2017-06-20 06/20/2017 Damion Moyer630 Primary LAVONNE [place] [address] Insurance:ANTHEM KEETONDOB: Community [address] MEDICARE SENIOR [id number] Hospital [address]Rsk: (567) ADVANTAPolicy Number: Repository [phone] () [id number] Date:5649-65-37FX [address] [address]WI: 06/20/2017 Secondary Lavonne Carrillo Insurance:MEDICAIDPol KeetonDOB: [facility] icy Number: [id number] Hospital [id number] Repository Date:2017-06-20 06/20/2017 Tertiary NOT GIVENUNK [place] Insurance:SELF PAY [facility] Number: Effective Repository Date:2017-06-20 06/13/2017 LAVONNE Primary LAVONNE [facility] KEETONDOB: Insurance:MEDICAIDPol [facility] GEORGIADOB: Three Repository icy Number: [id number] [facility] [place] Date:9088-68-39GR ROSA ELENA [facility]IF[facility] [place] [address]Fta: (646) 2645[place]FLY [place] [address]Lid: (BO) [address]HL: (HP) [phone] 06/13/2017 [facility] Health Insurance:MEDICAIDPol KEETONDOB: Three Repository icy Number: [id number] [address] LOT Date:3249-73-90IW [address] [address] [address]Dby: (645) [address]WP: (HP) [phone] 06/13/2017 [facility] Health Insurance:YUKI HORNER: Three Repository MANAGED [id number] Number: [address] [place] [address] [place] [id number] [address] Date:7448-63-78VR ROSA ELENA 512844CFTARSB, [place] [address]IQ:
== END ==
PROVIDERS: Family Provider Internal Medicine; PCP Internal Medicine; Referring Provider Nurse Practitioner Family; Visit Provider Nurse Practitioner Family
DX: M16.0 Bilateral primary osteoarthritis of hip (principal); M51.36 Other intervertebral disc degeneration,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; M46.87 Other specified inflammatory spondylopathies, lumbosacral region
CPT/HCPCS: 72100; 73502

== ENCOUNTER 2018-03-13 12:16 | Emergency (ER) | payer MEDICARE, SELFPAY ==
[2018-03-13 12:19] VITALS: BP 152/67; PULSE 82; RESP 16; TEMP 36.6; O2SAT 94; BMI 45.6
[2018-03-13] MEDS: HYDROmorphone 1 MG/ML Syringe SC (12:37)
[2018-03-13] MEDS: Ondansetron ODT 4 MG Tablet 8 MG PO (12:37)
[2018-03-13 12:45] LABS: Bedside Glucose 187 mg/dL (70-110)
--- NOTE | 2018-03-13 13:37 | ED.VISSUMM ---
- ER Visit Summary Date of Service: 03/13/18 Chief Complaint: Nausea and right hip pain History of Present Illness: The patient is a 72 F with chronic right hip and back pain. Patient has severe pain almost every day. Today was no different. She took her dose of Tracy and it made her stomach upset. She had nausea and dry heaves. No vomiting. No abdominal pain or constipation. No diarrhea. No fevers. No chest pain or shortness of breath. Patient denies any new pains. This is her chronic pain in her right hip and back. No new injuries or falls. No recent surgeries or instrumentation. She is awaiting follow-up with pain management. Physical Examination: Afebrile and vital signs unremarkable. Patient is alert and oriented. Appears uncomfortable but not toxic or in distress. Skin appears unremarkable. Heart regular. Lungs clear. Abdomen soft. Right hip is diffusely tender to palpation with light touch. Good range of motion. No shortening. No abnormal rotation. Neurovascular intact distally. Test Results: None indicated Emergency Department Course and Treatment: Patient declined imaging or diagnostic testing. She has known osteoarthritis disease. She was treated with Zofran ODT and had good resolution of her nausea symptoms. She was able to tolerate PO. She was treated with 2 doses of Dilaudid here. She would like to go home. She has her pain medication at home and is planning to follow-up. I advised that if she has difficulty ambulating or functioning at home, we can admit her. She voiced understanding. Treatment Plan: As above Disposition: Discharge Impression: 1. Chronic right hip pain 2. Nausea This note was generated with [employer] dictation software. It may contain incorrect words, spelling, and punctuation that were not noted in review of the chart prior to signing ED Disposition - Plan for ED Patient: Chief Complaint: Lower Extremity Injury Referrals: Zabrina Bain MD [Primary Care Provider] -
--- NOTE | 2018-03-13 13:45 | ED.DCSUM_ITS ---
- ER Visit Summary Date of Service: 03/13/18 Chief Complaint: Nausea and right hip pain History of Present Illness: The patient is a 72 F with chronic right hip and back pain. Patient has severe pain almost every day. Today was no different. She took her dose of [place] and it made her stomach upset. She had nausea and dry heaves. No vomiting. No abdominal pain or constipation. No diarrhea. No fevers. No chest pain or shortness of breath. Patient denies any new pains. This is her chronic pain in her right hip and back. No new injuries or falls. No recent surgeries or instrumentation. She is awaiting follow-up with pain management. Physical Examination: Afebrile and vital signs unremarkable. Patient is alert and oriented. Appears uncomfortable but not toxic or in distress. Skin appears unremarkable. Heart regular. Lungs clear. Abdomen soft. Right hip is di ffusely tender to palpation with light touch. Good range of motion. No shortening. No abnormal rotation. Neurovascular intact distally. Test Results: None indicated Emergency Department Course and Treatment: Patient declined imaging or diagnostic testing. She has known osteoarthritis disease. She was treated with Zofran ODT and had good resolution of her nausea symptoms. She was able to tolerate PO. She was treated with 2 doses of Dilaudid here. She would like to go home. She has her pain medication at home and is planning to follow-up. I advised that if she has difficulty ambulating or functioning at home, we can admit her. She voiced understanding. Treatment Plan: As above Disposition: Discharge Impression: 1. Chronic right hip pain 2. Nausea This note was generated with [employer] dictation software. It may contain incorrect words, spelling, and punctuation that were not noted in review of the chart prior to signing ED Disposition - Plan for ED Patient: Chief Complaint: Lower Extremity Injury Referrals: Zabrina Bain MD [Primary Care Provider] -
--- NOTE | 2018-03-13 13:45 | ED.DEP ---
ED Disposition - Plan for ED Patient: Chief Complaint: Lower Extremity Injury Instructions: ED Chronic Pain Management Prescriptions: Ondansetron [Zofran Odt] 4 mg PO Q8H PRN PRN #20 tab PRN Reason: Nausea Referrals: Zabrina Bain MD [Primary Care Provider] -
[2018-03-13] MEDS: HYDROmorphone 0.5 MG/0.5 ML SYRINGE SC (13:46)
[2018-03-13 13:50] VITALS: BP 151/64; PULSE 73; RESP 16; O2SAT 97
== END 2018-03-13 14:07 | disposition home or self-care (01) ==
LOC: ED 13:05
PROVIDERS: Emergency Provider Emergency Medicine; Family Provider Internal Medicine; PCP Internal Medicine
DX: M25.551 Pain in right hip (principal); G89.29 Other chronic pain; R11.0 Nausea; I10 Essential (primary) hypertension; E11.9 Type 2 diabetes mellitus without complications; K21.9 Gastro-esophageal reflux disease without esophagitis; J44.9 Chronic obstructive pulmonary disease, unspecified; Z79.4 Long term (current) use of insulin; Z79.899 Other long term (current) drug therapy; Z87.891 Personal history of nicotine dependence
CPT/HCPCS: 82962; 96372; 99284

== ENCOUNTER 2018-03-31 12:32 | Emergency (ER) | payer MEDICARE, SELFPAY ==
[2018-03-31 12:33] VITALS: BP 185/70; PULSE 81; RESP 18; TEMP 36.7; O2SAT 94; BMI 46.5
--- NOTE | 2018-03-31 12:45 | RAD_ITS ---
STUDY: X-RAY CHEST REASON FOR EXAM: Female, 72 years old. Chest pain. Cough. TECHNIQUE: Single AP portable view of the chest. COMPARISON: Comparison is made with prior study dated December 01, 2015. FINDINGS: EKG records are seen. A left-sided portacatheter is seen with the tip at the junction of the superior vena cava and right atrium. Hyperinflation. There is evidence of vascular congestion. There is no demonstrated pleural abnormality. Mild cardiomegaly. Normal mediastinum and osvaldo. Normal visualized pulmonary arteries. Normal visualized aortic arch and descending thoracic aorta. There are diffuse degenerative changes of the visualized thoracic spine. There is degenerative osteoarthritis of the bilateral shoulders. There is no demonstrated abnormality of the visualized soft tissue structures of the upper abdomen. RAD/Chest 1 View (Portable) IMPRESSION: Vascular congestion. Mild cardiomegaly. Electronically Signed: Raghu Arnett MD at 14:08 EST Tel [phone], Service support ,
--- NOTE | 2018-03-31 12:45 | CT_ITS ---
STUDY: CT ABDOMEN AND PELVIS WITHOUT CONTRAST REASON FOR EXAM: Female, 72 years old. Right lower quadrant pain. Right lower extremity swelling. Severe right hip pain. Patient has a history of lymphoma. RADIATION DOSAGE (If Supplied By Facility): CTDIvol = ( 14.80 ) mGy, DLP = ( 718.65 ) mGycm TECHNIQUE: Transaxial images were obtained from the dome of the diaphragm to the symphysis pubis without oral contrast, and without intravenous contrast. Sagittal and coronal images were reconstructed. Individualized dose optimization techniques were used for this CT. COMPARISON: Comparison is made with prior study dated November 18, 2017. FINDINGS: Mild increased markings at the lung bases suggestive of scarring. Mild degree of pericardial thickening. Mild hepatomegaly. Normal gallbladder and extrahepatic biliary system. Mild splenomegaly. Normal pancreas. There is symmetric enlargement of the adrenal glands suggesting adrenal hyperplasia. Normal right kidney. Normal left kidney. Normal visualized stomach. Normal small intestine. There are multiple colonic diverticula consistent with diverticulosis. The appendix is visualized and appears normal. There is diffuse atherosclerotic calcification of the abdominal aorta, without a demonstrated aneurysm. Normal inferior vena cava. There is borderline retroperitoneal lymphadenopathy with enlarged nodes no greater than 10mm in the short axis diameter. Normal urinary bladder. There is a small umbilical hernia containing fat. Stable 5.8 cm x 1.6 cm lipoma in the right anterior abdominal wall within the rectus sheath. Tiny calcifications are seen within it. There are mild degenerative changes of the visualized lumbar spine. Degenerative changes of the hip joints. CT/Abdomen/Pelvis without Cont IMPRESSION: Hepatosplenomegaly. Stable increased markings at the lung bases suggestive of scarring. Pericardial thickening. Enlargement of the jugular line suggestive of adrenal hyperplasia slightly worse on the left side. Electronically Signed: Raghu Arnett MD at 14:15 EST Tel [phone], Service support ,
--- NOTE | 2018-03-31 13:10 | ED.VISSUMM ---
- ER Visit Summary Date of Service: 03/31/18 Chief Complaint: Generalized weakness, leg swelling History of Present Illness: The patient is a 72 F who has had generalized weakness and bilateral leg swelling for the past 3 days. She feels weak overall. No slurred speech or facial droop. She has not fallen at home. She is not sure if she has had a fever. She admits to a cough but denies dysuria. She has been eating and drinking okay but she feels like her mouth is dry. She takes for water pills a day, 2 in the morning and 2 at night. She denies any chest pain. She lives by herself. She also admits to having diarrhea every time she eats. Physical Examination: Vital signs reviewed. HEENT exam unremarkable. Heart is regular rate and rhythm without murmurs. Lungs are clear to auscultation. Abdomen is soft left sided tenderness to palpation. Extremities reveal no edema. Skin exam normal. Neurologic exam shows diffuse overall weakness with no lateralizing symptoms. Test Results: Laboratory studies show a potassium of 3. Alk phos 147. BNP 96. Chest x-ray reveals some vascular congestion. CT abdomen pelvis reveals adrenal hyperplasia with no other acute findings. Emergency Department Course and Treatment: Patient was able to walk with a walker which she does at home. She ambulated into the hallway with this. She does have right hip pain which is chronic she gets injections by Dr. Brice. At this point I do not feel she requires admission as I do not have any acute findings for her to be admitted to the hospital. I will give her an extra dose of Lasix to see if this will help with her lower extremity edema. She is educated on using compression stockings and elevating her feet. She does live by herself but she has a home health aide that comes to her house every day. She will need to call her PCP for follow-up. She will continue all her home medications Treatment Plan: [] Disposition: Discharge Impression: Generalized weakness This note was generated with [employer] dictation software. It may contain incorrect words, spelling, and punctuation that were not noted in review of the chart prior to signing ED Disposition - Plan for ED Patient: Chief Complaint: Weakness Referrals: Zabrina Bain MD [Primary Care Provider] -
[2018-03-31 13:21] LABS: Bacteria 0 SEEN /hpf (None Seen); Mucous, Urine 0 SEEN /hpf (<or=2+); Red Blood Cells-Urine 0 SEEN /hpf (0-5); White Blood Cells 0 SEEN /hpf (0-5)
[2018-03-31 13:24] LABS: Color, Urine Yellow (Yellow); Glucose, Dipstick Normal (Normal); Ketone-Dipstick Negative (Negative); Leukocyte Esterase-Dipstick Negative /ul (Negative); Nitrite-Dipstick Negative (Negative); Occult Blood-Urine Negative /ul (Negative); Protein-Dipstick 30 mg/dl (Negative); Urine Bilirubin Dipstick Negative (Negative); Urine Clarity Sl. Cloudy (Clear); Urine Urobilinogen Normal (Normal)
[2018-03-31 13:26] LABS: Absolute Lymphocyte Count 1.07 X10^3/ul (0.83-4.51); Absolute Neutrophil Count 6.2 X10^3/uL (2.0-7.7); Basophil# 0.01 X10^3/uL; Basophil% 0.1 % (0-1); Eosinophil# 0.09 X10^3/uL; Eosinophils% 1.2 % (0-5); Hematocrit 39.1 % (37-47); Hemoglobin 12.5 g/dl (12.0-15.0); Lymphocyte # 1.07 X10^3/ul (4.0); Lymphocyte % 13.7 % (19-41); Mean Corpuscular Hgb 29.1 pg (27.0-32.0); Mean Corpuscular Volume 91.1 fL (81-99); Mean Platelet Vol. 10.1 fl (6.2-12.0); Monocyte# 0.44 X10^3/uL; Monocyte% 5.6 % (0-10); Neutrophil # 6.15 X10^3/uL (2.7-7.7); Neutrophil % 78.6 % (47-70); Platelet Count 210 K/mm3 (150-450); RBC Distribution Width CV 15.2 % (11.6-14.6); RBC Distribution Width SD 49.8 fl (35.1-43.9); Red Blood Count 4.29 M/mm3 (4.2-5.4); White Blood Count 7.8 K/mm3 (4.4-11.0)
[2018-03-31 13:27] LABS: POSITIVE COUNT NO; POSITIVE DIFFERENTIAL NO; POSITIVE MORPHOLOGY NO
[2018-03-31 13:29] LABS: Squamous Epithelial Cells - UA 0-5 SEEN /hpf (5-10)
[2018-03-31 13:38] LABS: ALB/GLOB Ratio 0.9 RATIO (0.9-2.4); AST(SGOT) 24 U/L (15-37); Alanine Aminotransfer ALT/SGPT 29 U/L (13-56); Albumin, Serum 3.3 g/dL (3.2-5.0); Alkaline Phosphatase 147 U/L (45-117); Anion Gap 7 (5-15); BUN 11 mg/dL (7-18); BUN/Creat Ratio 17.8 RATIO (10-20); Calcium,Total 8.5 mg/dL (8.5-10.1); Chloride 102 mmol/L (98-107); Creatinine, Serum 0.62 mg/dL (0.55-1.02); EST Glomerular Filtration Rate 101 mL/min (>60); Est Glom Filt Rate - Afr Amer 122 mL/min (>60); Estimated Creatinine Clearance 38.94 ml/min; Globulin 3.8 g/dL (2.2-4.2); Glucose 172 mg/dL (74-106); Lipase 247 U/L (73-393); Protein, Total 7.1 g/dL (6.4-8.2); Sodium Level 143 mmol/L (136-145)
[2018-03-31] MEDS: 0.9% Normal Saline 1,000 ML 100 ML IV (14:19)
[2018-03-31 14:53] LABS: BNP,B-Type NATRIURETIC PEPTIDE 96.5 pg/mL (0-100)
[2018-03-31 14:57] VITALS: BP 183/81; PULSE 66; RESP 22; O2SAT 98
--- NOTE | 2018-03-31 15:25 | ED.DEP ---
ED Disposition - Plan for ED Patient: Disposition: Home or Assisted Living Chief Complaint: Weakness Instructions: ED Weakness [facility] Referrals: Zabrina Bain MD [Primary Care Provider] -
[2018-03-31] MEDS: Furosemide 40 MG Tablet PO (15:42)
[2018-03-31 16:04] VITALS: BP 183/85; PULSE 71; RESP 20; O2SAT 97
--- NOTE | 2018-03-31 16:05 | ED.RN ---
PT EDUCATED ON WRITTEN AND VERBAL DISCHARGE INSTRUCTIONS. PT CONCERNED ABOUT GOING HOME, THIS RN EDUCATED THAT IF SHE HAS FURTHER CONCERN NEW OR WORSENED SX SHE CAN ALWAYS RETURN TO ED. DR. CODY TALKS WITH PT ABOUT BEING DISCHARGED PRIOR TO THIS RN ENTERING PT ROOM. PT STILL HESITANT BUT AGREEABLE PT AMBULATED STEADILY WITH WALKER. PT REPORTS SHE NEEDS A RIDE HOME. THIS RN ASSISTED PT IN CALLING A CAB. CAB TO BE HERE TO ED IN 30 MIN. PT DRESSES SELF AND AMBULATES SELF TO BEDSIDE COMMODE. THIS RN DE-ACCESSES PT PORT AND ASSISTED PT IN WHEELCHAIR OUT TO WAITING ROOM.
--- OUTSIDE RECORDS SUMMARY | 2018-06-03 00:31 | XMS RPT_ITS ---
:1945 Author Organization [place] Support Name Relationship Address Phone GRIFFIN MEJIAA Unavailable Unavailable + [address] Unavailable Unavailable + [facility] Unavailable Unavailable Unavailable KIRSTEN MEJIANDA Unavailable Unavailable + [address] Unavailable Unavailable + [place], [place] R Unavailable Unavailable Unavailable KIRSTEN MEJIANDA Unavailable Unavailable + [address] Unavailable Unavailable + [place], [place] R Unavailable Unavailable Unavailable MAUREEN KAVEH Unavailable Unavailable + R Unavailable Unavailable Unavailable ALFREDO BARROW Unavailable Unavailable + JILLIAN MOYER Unavailable [address] + [place] [address] JILLIAN MOYER Unavailable [address] + [place] [address] KAVEH REDDY Unavailable Unavailable + R Unavailable Unavailable Unavailable ALFREDO BARROW Unavailable Unavailable + JILLIAN MOYER Unavailable [address] + [place] [address] JILLIAN MOYER Unavailable [address] + [place] [address] MAUREEN KAVEH Unavailable Unavailable + R Unavailable Unavailable Unavailable ALFREDO BARROW Unavailable Unavailable + KAVEH REDDY Unavailable . + [place] [address] R Unavailable Unavailable Unavailable ALFREDO BRAROW Unavailable . + [place] [address] KAVEH REDDY Unavailable Unavailable + R Unavailable Unavailable Unavailable ALFREDO BARROW Unavailable Unavailable + Roberto, Adin Unavailable [address] + [place] [address] R Unavailable Unavailable Unavailable Sutton-Alpine, Adin Unavailable [address] + [place] [address] R Unavailable Unavailable Unavailable JILLIAN MOYER Unavailable [address] + [place] [address] JOÃO, JILLIAN Unavailable [address] + [place] [address] ROBERTO, ADIN Unavailable [address] + [place] [address] R Unavailable Unavailable Unavailable ROBERTO, ADIN Unavailable [address] + [place] [address] R Unavailable Unavailable Unavailable ROBERTO, ADIN Unavailable [address] + [place] [address] R Unavailable Unavailable Unavailable ROBERTO, ADIN Unavailable [address] + [place] [address] R Unavailable Unavailable Unavailable ROBERTO, ADIN Unavailable Unavailable + ROBERTO, ADIN Unavailable [address] + [place] [address] R Unavailable Unavailable Unavailable ROBERTO, ADIN Unavailable Unavailable + ROBERTO, ADIN Unavailable Unavailable + ROBERTO, ADIN Unavailable Unavailable + ROBERTO, ADIN Unavailable [address] [phone] [place] [address] R Unavailable Unavailable Unavailable RBOERTO, ADIN Unavailable Unavailable + ROBERTO, ADIN Unavailable Unavailable + ROBERTO, ADIN Unavailable [address] [phone] [place] [address] R Unavailable Unavailable Unavailable ROBERTO, ADIN Unavailable [address] [phone] [place] [address] R Unavailable Unavailable Unavailable ROBERTO, ADIN Unavailable [address] [phone] [place] [address] R Unavailable Unavailable Unavailable ROBERTO, ADIN Unavailable [address] [phone] [place] [address] R Unavailable Unavailable Unavailable SANTHOSH, ADIN Unavailable [...] VINSON (PA) Referring Unavailable JUAN A HINSON (STAFF PHARMACIST) Attending Unavailable RIGOBERTO BAUER T Referring Unavailable MARK RIGOBERTO T Referring Unavailable MARK RIGOBERTO T Referring Unavailable MARK RIGOBERTO T Attending Unavailable TALAMPAS, JESUS D Referring Unavailable LUCY VINSON (MADAN) Attending Unavailable SENA, TIA B Referring Unavailable SENA, TIA B Attending Unavailable TALAMPAS, JESUS D Referring Unavailable SENA, TIA B Referring Unavailable LARA HINSONI (STAFF PHARMACIST) Attending Unavailable LUCY VINSON (MADAN) Attending Unavailable TALAMPAS, JESUS D Referring Unavailable SENA, TIA B Referring Unavailable MADISYN LUNDBERG (SANDBLAST OR SHOTBLAST EQUIPMENT TENDER) Attending Unavailable TALAMPAS, JESUS D Referring Unavailable SENA, TIA B Referring Unavailable TALAMPAS, JESUS D Attending Unavailable LUCY VINSON (MADAN) Attending Unavailable SARKIS ABRAHAM Referring Unavailable ALIZE SIDDIQUI (SANDBLAST OR SHOTBLAST EQUIPMENT TENDER) Attending Unavailable SENA, TIA B Referring Unavailable [...] SONIA, GAMALIEL E Referring Unavailable ANGELLA MCARTHUR (SANDBLAST OR SHOTBLAST EQUIPMENT TENDER) Attending Unavailable ALISSON, LUCY (PA) Referring Unavailable [...] JESUS D Referring Unavailable JUAN A HINSON (STAFF PHARMACIST) Attending Unavailable TALAMPAS, JESUS D Attending Unavailable TALAMPAS, JESUS D Referring Unavailable TALAMPAS , DR. LEE Primary Care Unavailable BREANN ARAGON MD. TIERNEY Tompkins Admitting Unavailable BREANN ARAGON MD. TIERNEY Tompkins Attending Unavailable KATARZYNA RED Attending Unavailable AJIT ARAGON, DR. LEE Primary Care Unavailable YOANDY LOWRY MD Attending Unavailable AJIT ARAGON, DR. LEE Primary Care Unavailable SIA BARAJAS Attending Unavailable CLINKER, FATOU Ariana Attending Unavailable CLINKER, FATOU L Referring Unavailable CLINKER, FATOU L Attending Unavailable TALAMPAS, JESUS Referring Unavailable KALAPODIS, CARLOS Attending Unavailable CLINKER, FATOU L Attending Unavailable TALAMPAS, JESUS Referring Unavailable NEUWIRTH, LEI S Attending Unavailable TALAMPAS, JESUS Referring Unavailable ALISSONLUCY Attending Unavailable ALISSONLUCY Referring Unavailable OCTAVIO CAI Attending Unavailable SYSTEM, PROVIDER NOT IN Attending Unavailable SYSTEM, PROVIDER NOT IN Referring Unavailable KALAPODIS, CARLOS Attending Unavailable TRUDY LEYVA Referring Unavailable SELF, SELF Referring Unavailable CHINO RENDON Attending Unavailable GUILLERMINA SILVA Attending Unavailable ANICETO, TAMMIE Primary Care Unavailable Valente, Dr. Cristian Maria Admitting Unavailable Creasap, Dr. Cristian Maria Attending Unavailable Creasap, Dr. Cristian Maria Admitting Unavailable Creasap, Dr. Cristian Maria Attending Unavailable Jm, Dr. Cesar Francisco Admitting Unavailable [place], Dr. Cesar Francisco Attending Unavailable Susi, Dr. Matt Degroot Admitting Unavailable Susi, Dr. aMtt Degroot Attending Unavailable Susi, Dr. Matt Degroot Admitting Unavailable Susi, Dr. Matt Degroot Attending Unavailable Augustus, Dr. Osbaldo Kuo Admitting Unavailable Augustus, Dr. Osbaldo Kuo Attending Unavailable Talampas, Jesus Primary Care Unavailable Elmer Bledsoe Attending Unavailable Rashi Lee Attending Unavailable Rashi Lee Referring Unavailable Talampas, Jesus Primary Care Unavailable [...] Talampas, Jesus Primary Care Unavailable Prebish, Nadiya HEALTH CARE FACILITY ADMINISTRATOR-C Attending Unavailable Prebish, Nadiya HEALTH CARE FACILITY ADMINISTRATOR-C Referring Unavailable Talampas, Jesus Primary Care Unavailable PROBLEMS PROBLEMS DATE TYPE CONDITION / CODE ATTENDING STATUS SOURCE 02/21/2018 Admitting Pain in right hip / CLINKER, FATOU Active [employer] Diagnosis M25.551(ICD-10) [place] 02/21/2018 Admitting Pain in left hip / CLINKER, psicofxp Diagnosis M25.552(ICD-10) [place] 02/21/2018 Admitting 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, FATOUMTEM Limited Diagnosis myelopathy or [place] [facility] [place] radiculopathy, Repository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 / M47.816(ICD-10) 02/21/2018 Admitting Chronic pain CLINKER, psicofxp Diagnosis syndrome / [place] G89.4(ICD-10) Repository 02/21/2018 Admitting Myalgia, other site CLINKER, psicofxp Diagnosis / M79.18(ICD-10) [place] 02/21/2018 Admitting Encounter for CLINKER, psicofxp Diagnosis therapeutic drug L [place] level monitoring / Repository Z51.81(ICD-10) 02/21/2018 Admitting Other intervertebral CLINKER, psicofxp Diagnosis disc degeneration, [place]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 / Repository M51.36(ICD-10) 02/20/2018 Unknown M25.551 - Pain in Prebish, Nadiya Active [facility] right hip / HEALTH CARE FACILITY ADMINISTRATOR-C Community M25.551(ICD-10) Hospital Repository 02/12/2018 Active Type 2 diabetes NA Active [facility] mellitus with other [facility] Main diabetic [place] neurological Repository complication / E11.49(ICD-10) 11/25/2015 Active 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, lymph nodes [facility] of multiple sites / [place] C82.08(ICD-10) Repository 02/07/2015 Active Chronic respiratory NA Active [facility] failure with hypoxia [facility] / J96.11(ICD-10) [place] Repository 02/07/2015 Active Chronic respiratory NA Active [facility] failure with [facility] hypercapnia / [place] J96.12(ICD-10) Repository 12/25/2016 Active Personal history of Active [facility] non-Hodgkin [facility] lymphomas / [place] Z85.72(ICD-10) Repository 12/24/2016 Active Gastric ulcer, NA Active [facility] unspecified as acute Clinic Main or chronic, without [place] hemorrhage or Repository perforation / K25.9(ICD-10) 12/18/2017 Unknown R32 - Unspecified [place], Active [place] urinary incontinence [facility] Community / R32(ICD-10) Hospital Repository 12/18/2017 Unknown N81.9 - Female [place], Active [place] genital prolapse, [facility] unspecified / Hospital N81.9(ICD-10) Repository 05/21/2011 Active Other nonspecific NA Active [facility] abnormal finding of [facility] Main lung field / [place] R91.8(ICD-10) Repository 11/06/2017 Working Contusion of left KALAPODIS, Active [facility] Diagnosis knee, initial [place] encounter / Repository S80.02XA(ICD-10) 10/25/2017 Active Pulmonary NA [facility] hypertension, Clinic Main unspecified / [place] I27.20(ICD-10) Repository 11/01/2017 Active Chronic obstructive NA [facility] pulmonary disease, [facility] unspecified / [place] J44.9(ICD-10) Repository 01/06/2015 Active Essential (primary) NA [facility] hypertension / [facility] Main I10(ICD-10) [place] Repository 07/16/2017 Admitting Other forms of NA Active [facility] Diagnosis dyspnea / [place] R06.09(ICD-10) Repository 07/16/2017 Admitting Iron deficiency NA Active [facility] Diagnosis anemia, unspecified [place] / D50.9(ICD-10) Repository 07/16/2017 Admitting Other secondary NA Active [facility] Diagnosis hypertension / [place] I15.8(ICD-10) Repository 07/16/2017 Admitting Candidiasis of skin NA Active [facility] Diagnosis and nail / [place] B37.2(ICD-10) Repository 06/26/2017 Admitting Dysphagia, NA Active [facility] Diagnosis pharyngeal phase / [place] R13.13(ICD-10) Repository 05/26/2016 Active Unspecified lump in NA [facility] unspecified breast / Clinic Main N63.0(ICD-10) [place] Repository 06/25/2017 Active Left upper quadrant NA Active [facility] abdominal swelling, [facility] mass and lump / [place] R19.02(ICD-10) Repository 06/25/2017 Active Mastodynia / NA Active [facility] N64.4(ICD-10) [facility] Main [place] Repository 06/19/2017 Admitting Lumbago with AYALA, [facility] sciatica, OCTAVIO J [place] unspecified side / Repository M54.40(ICD-10) 06/19/2017 Admitting Other chronic pain / AYALA, Active [facility] Diagnosis G89.29(ICD-10) [place] J [place] Repository 06/19/2017 Admitting Dysphagia, SYSTEM, Active [facility] Diagnosis unspecified / PROVIDER NOT [place] R13.10(ICD-10) [place] Repository 06/13/2017 Admitting Radiculopathy, FANELLO, GUILLERMINA Active [facility] diagnosis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 / [place] M54.16(ICD-10) Repository 05/24/2011 Active Dependence on NA Active [facility] supplemental oxygen [facility] / Z99.81(ICD-10) [place] Repository 06/07/2017 Active Emphysema, NA Active [facility] unspecified / [facility] J43.9(ICD-10) [place] Repository 05/26/2017 Admitting Esophagitis, KALAPODIS, [facility] Diagnosis unspecified / [place] K20.9(ICD-10) Repository 05/08/2017 Admitting Red Eye / [id number]() ARNOLD [place] Active [facility] [place] Repository 05/08/2017 Admitting Breast Problem / SAMOLD [place] Active [facility] [facility] Diagnosis 16() [place] Repository 05/05/2017 Admitting Chronic obstructive [place], Active [employer] [facility] Diagnosis pulmonary disease, SIA E [place]) unspecified (HCC) / Repository J44.9(ICD-10) 05/05/2017 Admitting Acute bronchitis, [place], Active [facility] Diagnosis unspecified / SIA E [place] J20.9(ICD-10) Repository 04/11/2017 Active Unknown / ALISSON, Active [facility] UNK(Unknown) LUCY (MADAN) Clinic Main [place] Repository 04/08/2017 Active Iron deficiency NA Active [facility] anemia, unspecified Clinic [facility] / D50.9(ICD-10) [place] Repository 04/08/2017 Active Hemorrhage of anus NA Active [facility] and rectum / Clinic Main K62.5(ICD-10) [place] Repository 04/08/2017 Active Diverticulosis of NA Active [facility] large intestine [facility] without perforation [place] or abscess with Repository bleeding / K57.31(ICD-10) PROCEDURES PROCEDURES No Procedure Records FoundRESULTS RESULTS DISCHARGE INSTRUCTION Observed: 03/31/2018 Status: F Source: [place] 3:25 PM [facility] REPOSITORY [facility] Medical Records Department [address] [place] [address] Discharge Instruction 03/31/18 1525 MR#: [id number] Acct: [id number] Name: DAMION MOYER Rep #: [id number] : 1945 72 From: Aaron Dumont MD [...] your Primary Care Provider. Call [facility] ([phone]) or report to the closest Emergency Room. Call 911 if necessary. 03/31/18 1525 <Electronically signed by Aaron Dumont MD> Date Aaron Dumont MD Cosigner Signature (If Indicated): Date CC: Jesus Fong MD EMERGENCY DEPARTMENT Observed: 03/31/2018 Status: F Source: [place] SUMMARY 3:24 PM [facility] REPOSITORY [facility] Medical Records Department [address] [place] [address] Emergency Department Summary 03/31/18 1310 MR#: [id number] Acct: [id number] Name: DAMION MOYER Rep #: [id number] : 1945 72 From: Aaron Dumont MD [...] Generalized weakness This note was generated with GotGame dictation software. It may contain incorrect words, [...] your Primary Care Provider. Call [facility] ([phone]) or report to the closest Emergency Room. Call 911 if necessary. 03/31/18 1524 <Electronically signed by Aaron Dumont MD> Date Aaron Dumont MD Cosigner Signature (If Indicated): Date CC: Jesus Fong MD URINALYSIS, COMPLETE Collected: 03/31/2018 Status: F Source: [place] 1:16 PM [facility] REPOSITORY Order Comment: Order Date: 03/31/18 How [...] URINE SEEN Performed By: #### L400.0001 #### [facility] [address] [place], [place], [address] CBC W/DIFF, AUTOMATED Collected: 03/31/2018 Status: F Source: [place] 1:16 PM [facility] REPOSITORY TYPE CODE TESTS RESULT [...] Lymph 1.07 Performed By: #### L100.0100 #### [facility] [address] [place], [place], [address] COMPREHENSIVE METABOLIC Collected: 03/31/2018 Status: F Source: [place] MORALES 1:16 PM [facility] REPOSITORY TYPE CODE TESTS RESULT [...] 7 Performed By: #### L500.4050, L501.2450 #### [facility] [address] [place], [address] LIPASE Collected: 03/31/2018 Status: F Source: [place] 1:16 PM [facility] REPOSITORY TYPE CODE TESTS RESULT OUT OF RANGE REFERENCE UNITS LAB L501.2450 73-393 U/L Normal LIPASE 247 Performed By: #### L500.4050, L501.2450 #### [facility] [address] [place], [address] BNP,B-TYPE NATRIURETIC Collected: 03/31/2018 Status: F Source: [place] PEPTIDE 1:16 PM [facility] REPOSITORY TYPE CODE TESTS RESULT OUT OF RANGE REFERENCE UNITS LAB L503.6620 0-100 pg/mL Normal B-TYPE 96.5 JESSI PEP Performed By: #### L503.6620 #### [facility] [address] [place], [address] CHEST 1 VIEW Observed: 03/31/2018 Status: F Source: [place] (PORTABLE) 12:46 PM [facility] REPOSITORY [facility] Imaging Services [address] [place] [address] Chest 1 View (Portable) MR#: [id number] Acct: [id number] Name: DAMION MOYER Rep #: [id number] : 1945 F 72 From: Raghu Arnett MD PCP: Jesus Fong MD Status: REG ER Study: Chest 1 View (Portable) Date of Exam: 03/31/18 Exam# [id number] Ordering Dr: Aaron Dumont MD STUDY: X-RAY [...] Raghu Arnett MD at 14:08 EST Tel [phone], Service support , CC: Aaron Dumont MD; Jesus Fong MD Vp Product Marketing: Signed ABDOMEN/PELVIS WITHOUT Observed: 03/31/2018 Status: F Source: [place] CONT 12:46 PM [facility] REPOSITORY [facility] Imaging Services [address] [place] [address] Abdomen/Pelvis without Cont MR#: [id number] Acct: [id number] Name: DAMION MOYER Rep #: [id number] : 1945 F 72 From: Raghu Arnett MD PCP: Jesus Fong MD Status: REG ER Study: Abdomen/Pelvis without Cont Date of Exam: 03/31/18 Exam# [id number] Ordering Dr: Aaron Dumont MD STUDY: CT [...] Raghu Arnett MD at 14:15 EST Tel [phone], Service support , CC: Aaron Dumont MD; Jesus Fong MD Vp Product Marketing: Signed PROGRESS Observed: 03/19/2018 Status: COMPLETED Source: [place] 3:00 PM [facility] REPOSITORY HNO ID: [id number] Author: Lety Kemp (Pharmacist) Service: (none) Author [...] Rx coverage: Medicaid (plans to switch to [facility] in 2019_ ? Affordability: no issues [...] COMPOUNDED PRESCRIPTION Please provide portable oxygen concentrator. [facility]. 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 Lety Kemp PharmD, [facility] Primary Care Clinical Pharmacist [facility] CNOV Observed: 03/19/2018 Status: COMPLETED Source: [place] 3:00 PM [facility] REPOSITORY Office Visit (PHMEWO) JOÃODAMION ([id number]) 1945 F Date Time Provider Department 03/19/18 [...] Rx coverage: Medicaid (plans to switch to [facility] in 2019_ ? Affordability: no issues [...] Obesity - Obstructive chronic bronchitis with exacerbation ([facility]) COPD - Obstructive sleep apnea on CPAP [...] PRESCRIPTION Please provide portable oxygen concentrator. [facility] [place]. COMPOUNDED PRESCRIPTION PAP titration sleep study. 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; tolerating regimen well; Scr and [...] Kemp, PharmD, BCPS Primary Care Clinical Pharmacist [place] Referring Provider: SELF [200] Allergies As of [...] - Itching Date Reviewed: 03/19/2018 Reviewed by: Sharri Gonzalez - Fully Assessed Reason for Visit: Allied Health Visit [5] Cmt: DM and HTN f/u Primary Visit Diagnosis:Controlled type 2 diabetes mellitus without complication, unspecified whether fci insulin use (HCC) [E11.9] Other Visit Diagnosis:Essential hypertension [I10] Order(s):ACCUCHECK B/O [[id number]] Order #: [id number] insulin detemir U-100 (LEVEMIR FLEXPEN) 100 unit/mL [...] 03/17/2018 Status: COMPLETED Source: [place] 12:00 AM [facility] REPOSITORY Telephone ([employer]O) DAMION MOYER ([id number]) 1945 F Date Time Provider Department 03/17/18 [...] anything with insulin until told by office. TRAVON RAWLS 03/17/2018 1:31 PM Signed PharmJosé Miguel returned call to patient but was unable to reach - LMOM to return call to office Lety Kemp PharmD, [facility] Primary Care Clinical Pharmacist [facility] LETY KEMP PHARMACIST 03/17/2018 4:42 PM Signed Jewell reached out to patient again this afternoon [...] PharmD, [facility] Primary Care Clinical Pharmacist [facility] Allergies As of Date: 03/17/2018 Noted Allergy [...] W/O EXAC [J44.9] INVALID FOR*01/31/2015 [facility] SITE XTRNOD/SOLID ORG [C85.89] INVALID FOR*02/24/2007 NODULAR [...] DISCHARGE INSTRUCTION Observed: 03/13/2018 Status: F Source: [place] 1:59 PM [facility] REPOSITORY [facility] Medical Records Department [address] [place] [address] [place] [address] Discharge Instruction 03/13/18 1345 MR#: [id number] Acct: [id number] Name: DAMION MOYER Rep #: [id number] : 1945 72 From: Elmer Bledsoe MD [...] your Primary Care Provider. Call [facility] ([phone]) or report to the closest Emergency Room. Call 911 if necessary. 03/13/18 5010 <Electronically signed by Elmer Bledsoe MD> Date Elmer Bledsoe MD Cosigner Signature (If Indicated): Date CC: Jesus Fong MD EMERGENCY DEPARTMENT Observed: 03/13/2018 Status: F Source: [place] SUMMARY 1:59 PM [facility] REPOSITORY [facility] Medical Records Department [address] [place] [address] Emergency Department Summary 03/13/18 1337 MR#: [id number] Acct: [id number] Name: DAMION MOYER Rep #: [id number] : 1945 72 From: Elmer Bledsoe MD PCP: Jesus Fong MD Status: REG ER - ER Visit Summary Date of Service: 03/13/18 Chief Complaint: Nausea and right hip pain History of Present Illness: The patient is a 72 F with chronic right hip and back pain. Patient has severe pain almost every day. Today was no different. She took her dose of Pender and it made her stomach upset. She [...] 2. Nausea This note was generated with Commtimizeation software. It may contain incorrect words, spelling, [...] your Primary Care Provider. Call [facility] ([phone]) or report to the closest Emergency Room. Call 911 if necessary. 03/13/18 1359 <Electronically signed by Elmer Bledsoe MD> Date Elmer Bledsoe MD Cosigner Signature (If Indicated): Date CC: Jesus Fong MD BEDSIDE GLUCOSE Collected: 03/13/2018 Status: F Source: [place] 12:40 PM [facility] REPOSITORY TYPE CODE TESTS RESULT OUT OF REFERENCE UNITS RANGE LAB L501.080 70-110 mg/dL High BEDSIDE GLU 187 Result Comment: MANAGEMENT OF PATIENT CARE PER NURSING PROTOCOL Performed By: #### L501.080 #### [facility] Point of Care [address] [place] [address] LUMBAR SPINE 2 OR 3 Observed: 02/20/2018 Status: F Source: [place] VIEWS 2:17 PM [facility] REPOSITORY [facility] Imaging Services [address] [place] [address] Lumbar Spine 2 or 3 Views MR#: [id number] Acct: [id number] Name: DAMION MOYER Rep #: [id number] : 1945 F 72 From: Luis Stinson MD PCP: Jesus Fong MD Status: REG CLI Study: Lumbar Spine 2 or 3 Views Date of Exam: 02/20/18 Exam# [id number] Ordering Dr: Nadiya Stuart HEALTH CARE FACILITY ADMINISTRATOR-C STUDY: X-RAY - LUMBAR SPINE REASON FOR [...] , CC: Nadiya Stuart; Jesus Fong MD Vp Product Marketing: Signed HIP, UNI W/ PELVIS Observed: 02/20/2018 Status: F Source: [place] 2-3 VIEWS 2:17 PM [facility] REPOSITORY [facility] Imaging Services [address] [place] [address] HIP, UNI W/ Pelvis 2-3 Views MR#: [id number] Acct: [id number] Name: DAMION MOYER Rep #: [id number] : 1945 F 72 From: Luis Stinson MD PCP: Jesus Fong MD Status: REG CLI Study: HIP, UNI W/ Pelvis 2-3 Views Date of Exam: 02/20/18 Exam# [id number] Ordering Dr: Nadiya Stuart STUDY: X-RAY - [...] , CC: Nadiya Stuart; Jesus Fong MD Vp Product Marketing: Signed PROGRESS Observed: 02/20/2018 Status: COMPLETED Source: [facility] 1:40 PM [facility] REPOSITORY HNO ID: [id number] Author: Juan A Hinson (Cns) Service: (none) Author Type: Nurse Specialist Type: Progress Notes Filed: 02/21/2018 7:36 AM Note Text: Left without being seen CNOV Observed: 02/20/2018 Status: COMPLETED Source: [facility] 1:40 PM [facility] REPOSITORY Office Visit (INTMWS) DAMION MOYER ([id number]) 1945 F Date Time Provider Department 02/20/18 1:40 PM JUAN A HINSON (PORTIA) INTMWS During your visit today, we recorded the following information about you: Juan A Hinson APRN.PORT[place] 02/21/2018 7:36 AM Signed Left without being seen Nisreen Reyesirma BAUTISTA 02/20/2018 2:07 PM Signed Patient was brought [...] W/O EXAC [J44.9] INVALID FOR*01/31/2015 [facility] SITE XTRNOD/SOLID ORG [C85.89] INVALID FOR*02/24/2007 NODULAR [...] [I27.*INVALID FOR* Visit Notes: >> Nisreen Traylor LPN Joan Feb 20, 2018 2:02 PM Status: [...] Status: F Source: [facility] CONTRAST 4:05 PM [facility] EM[facility] REPOSITORY ORIGINAL CT ABDOMEN/PELVIS W/O CONTRAST TECHNIQUE: [...] PM CBC Collected: 02/17/2018 Status: F Source: [facility] 3:13 PM [facility]ATION REPOSITORY TYPE CODE [...] Performed By: #### CBC, ADIFF, ANEU #### [address] [address] #### CMP, LIP, GFR #### [address] [address] .AUTO DIFF Collected: 02/17/2018 Status: F Source: [facility] 3:13 [facility] REPOSITORY TYPE CODE TESTS RESULT OUT OF [...] Performed By: #### CBC, ADIFF, ANEU #### [place] [id number] #### CMP, LIP, GFR #### [place] [address] .NEUABS Collected: 02/17/2018 Status: F Source: [facility] 3:[address] [place] [address] REPOSITORY TYPE CODE TESTS RESULT OUT OF REFERENCE UNITS RANGE LAB ANEU(LOINC) 2.85-6.16 10 3/mcL High Neutrophil, 8.80 Absolute Performed By: #### CBC, ADIFF, ANEU #### [place] [id number] #### CMP, LIP, GFR #### [place] [address] CMP Collected: 02/17/2018 Status: F Source: [facility] 3:13 [facility] REPOSITORY TYPE CODE TESTS RESULT OUT OF [...] Performed By: ####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 W/BRUSH/WASH 01/19/14 EGD out pt [facility] - EXC TUMOR SOFT TISSUE ABDOMINAL WALL SUBQ 3+CM 12/03/2016 chronic fat necrosis - HEMORRHOIDECTOMY - MASTECTOMY, PARTIAL 12/03/2016 [facility] - wide excision 2nd to breast trauma [...] [place] 3.90 - 5.20 m/uL 4.59 Hemoglobin, [place] 11.5 - 15.5 g/dL 13.7 Hematocrit, [place] 36.0 - 46.0 % 42.7 MCV, [place] 80.0 - 100.0 fL 93.0 MCH, [place] 26.0 - 34.0 pg 29.8 MCHC, [place] 30.5 - 36.0 g/dL 32.1 RDW, [place] 11.5 - 15.0 % 14.1 Platelet Cnt, [place] 150 - 400 k/uL 267 MPV, [place] 9.0 - 12.7 fL 10.1 Neut%, [place] % 81.6 Lymp%, [place] % 12.6 [place]%, [place] % 4.8 Eos%, [place] % 0.8 Baso%, [place] % 0.2 Abs Neut, [place] 1.45 - 7.50 k/uL 8.14 (H) Abs Lymp, [place] 1.00 - 4.00 k/uL 1.26 Abs [place], [place] <0.87 k/uL 0.48 Abs Eos, [place] <0.46 [...] AND DIFF Collected: 01/02/2018 Status: F Source: [facility] 2:51 PM [facility] REPOSITORY TYPE CODE TESTS RESULT OUT OF REFERENCE UNITS RANGE LAB WWBC 3.70-11.00 k/uL [place] WBC 9.98 LAB WRBC 3.90-5.20 m/uL [place] RBC 4.59 LAB WHGB 11.5-15.5 g/dL [place] Hemoglobin 13.7 LAB WHCT 36.0-46.0 % [place] Hematocrit 42.7 LAB WMCV 80.0-100.0 fL [place] MCV 93.0 LAB WMCH 26.0-34.0 pg [place] MCH 29.8 LAB WMCHC 30.5-36.0 g/dL [place] MCHC 32.1 LAB WRDW 11.5-15.0 % [place] RDW 14.1 LAB WPLT 150-400 k/uL [place] Platelet Cnt 267 LAB WMPV 9.0-12.7 fL [place] MPV 10.1 Result Comment: Test performed at: [facility], [address] [place] [address] Rd., [place] [address]. LAB WNEUT % [place] Neut% 81.6 LAB WLYMP % [place] Lymp% 12.6 LAB WMONOC % [place]% 4.8 LAB WEOS % [place] Eos% 0.8 LAB WBASO % [place] Baso% 0.2 LAB WANEUT 1.45-7.5 k/uL High 0 [place] Abs Neut 8.14 LAB WALYMP 1.00-4.0 k/uL 0 [place] Abs Lymp 1.26 LAB WAMONO <0.87 k/uL [place] Abs [place] 0.48 LAB WAEOS <0.46 k/uL [place] Abs Eos 0.08 LAB WABASO <0.11 k/uL [place] Abs Baso <0.03 COMP METABOLIC PANEL Collected: 01/02/2018 Status: F Source: [facility] 2:51 PM [facility] REPOSITORY TYPE CODE TESTS RESULT [...] GFR. Performed By: #### IRON, SERIMM #### [facility] [address] [id number] LD Collected: 01/02/2018 Status: F Source: [facility] 2:51 PM MAIN CAMPUS REPOSITORY TYPE CODE TESTS RESULT OUT OF RANGE REFERENCE UNITS LAB LD 135-214 U/L LD 212 Performed By: #### IRON, SERIMM #### [facility] [place] [address] [id number] IRON AND TIBC Collected: 01/02/2018 Status: F Source: [place] [facility] 2:51 PM [facility] REPOSITORY TYPE CODE TESTS RESULT OUT OF REFERENCE UNITS RANGE LAB IRN 41-186 ug/dL Iron 43 LAB TIBC 232-386 ug/dL TIBC 264 LAB SAT 15-57 % Transferrin Saturatn 16 Performed By: #### IRON, SERIMM #### [facility] [address] [id number] IMMUNOGLOBULINS NIKOLAI Collected: 01/02/2018 Status: F Source: [facility] 2:51 PM [facility] REPOSITORY TYPE CODE TESTS RESULT OUT OF RANGE REFERENCE UNITS LAB IGG 717-1411 mg/dL IgG 798 LAB IGA 78-391 mg/dL IgA 291 LAB IGM 53-334 mg/dL IgM 169 Performed By: #### IRON, SERIMM #### [facility] [address] [place], [place] [address] CNOVSP Observed: 01/02/2018 Status: COMPLETED Source: [facility] 2:00 PM [facility] REPOSITORY Visit (SP) Office (FRANK) DAMION MOYER ([id number]) 1945 F Date Time Provider Department 01/02/18 2:00 PM TK KHAN During your visit today, we recorded the following information about you: Temperature Pulse Blood pressure 98.4 degrees 70/minute 164/77 Jessica Sams LPN 01/02/2018 3:13 PM Signed Est patient. Transferring care from [place]. Jessica Khan MD 01/03/2018 7:23 AM Signed Hematology and Medical Oncology PATIENT NAME: Damion Moyer. CLINIC NO: [id number]. ATTENDING PHYSICIAN: Tk Khan MD. DATE OF [...] diarrhea. ?She had received iron infusion in [facility] in the summer for iron deficiency anemia. [...] 1.2MG SUBCUTANEOUSLY ONCE DAILY blood sugar diagnostic (Xetawave ULTRA TEST) test strip Test blood sugar(s) 4 times daily and as needed for symptoms of high or low sugars. Dx: Type 2 DM - Controlled E11.9 Insulin: Yes Insulin [place], Disposable, (BD ULTRAFINE III MINI PEN) 31 [...] mouth daily at bedtime. ) Blood-Glucose Meter (ONETOUCH ULTRA2) monitoring kit 1 [...] COMPOUNDED PRESCRIPTION Please provide portable oxygen concentrator. [facility]. nitrofurantoin (MACRODANTIN) 100 mg capsule [...] lumps removed - COLONOSCOP W/ OR W/O [facility] SPEC 09/26/[address] [facility] [address] Collazo - COLONOSCOP W/ OR W/O [facility] SPEC 07/16/14 Colonoscopy [facility] out pt - COLONOSCOPY 3-11 Dr. Collazo - EGD tonsil tissue removed - EGD - EGD W/O OR W/BRUSH/WASH 08/04/09 gastric bx [facility] Dr. Collazo - EGD W/O OR W/BRUSH/WASH 01/19/14 EGD out pt [facility] - EXC TUMOR SOFT TISSUE ABDOMINAL WALL SUBQ 3+CM 12/03/2016 chronic fat necrosis - HEMORRHOIDECTOMY - MASTECTOMY, PARTIAL 12/03/2016 [facility] - wide excision 2nd to breast trauma [...] [place] 3.90 - 5.20 m/uL 4.59 Hemoglobin, [place] 11.5 - 15.5 g/dL 13.7 Hematocrit, [place] 36.0 - 46.0 % 42.7 MCV, [place] 80.0 - 100.0 fL 93.0 MCH, [place] 26.0 - 34.0 pg 29.8 MCHC, [place] 30.5 - 36.0 g/dL 32.1 RDW, [place] 11.5 - 15.0 % 14.1 Platelet Cnt, [place] 150 - 400 k/uL 267 MPV, [place] 9.0 - 12.7 fL 10.1 Neut%, [place] % 81.6 Lymp%, [place] % 12.6 [place]%, [place] % 4.8 Eos%, [place] % 0.8 Baso%, [place] % 0.2 Abs Neut, [place] 1.45 - 7.50 k/uL 8.14 (H) Abs Lymp, [place] 1.00 - 4.00 k/uL 1.26 Abs [place], [place] <0.87 k/uL 0.48 Abs Eos, [place] <0.46 k/uL 0.08 Abs Baso, [place] <0.11 k/uL <0.03 Component Latest Ref Rng [...] Dr. Sarkis Abraham Referring Provider: TK KHAN [[id number]] Allergies As of Date: 01/02/2018 Noted Allergy [...] I of lymph nodes of multiple sites ([facility]) [C82.08] Other Visit Diagnoses:Morbid obesity ([facility]) [E66.01] On home oxygen therapy [Z99.81] Immunodeficiency disorder ([facility]) [D84.9] Iron deficiency anemia, unspecified iron deficiency anemia type [D50.9] Level of Service: EST PATIENT VISIT LEVEL 3 [[id number]] Disposition: Return in about 6 months (around [...] 01/02/2018 2:54 PM >> JESSICA SAMS LPN Joan Jan 02, 2018 2:54 PM duplicate NITROFURANTOIN MACROCRYSTAL 100 MG CAPSULE >> Jessica Sams LPN 01/02/2018 2:56 PM >> JESSICA SAMS LPN Joan Jan 02, 2018 2:56 PM discontinued GENTAMICIN 0.3 % EYE DROPS >> Jessica Sams LPN 01/02/2018 2:53 PM >> LATRELL BAUTISTAJESSICA Joan Jan 02, 2018 2:53 PM discontinued TRAMADOL 50 MG TABLET >> Jessica Sams LPN 01/02/2018 2:57 PM >> SAMS MICHELEJESSICA Joan Jan 02, 2018 2:57 PM discontinued [...] W/O EXAC [J44.9] INVALID FOR*01/31/2015 [facility] SITE XTRNOD/SOLID ORG [C85.89] INVALID FOR*02/24/2007 NODULAR [...] (HCC) [I27.*INVALID FOR* Visit Notes: >> Jessica Sams LPN [facility] Jan 02, 2018 2:57 PM Status: Signed Est patient. Transferring care from [place]. Jessica Sams LPN Encounter Status:Closed by TK KHAN MD on 01/03/18 CNYESY Observed: 01/02/2018 Status: COMPLETED Source: [facility] 1:30 PM [facility] REPOSITORY Office Visit (GENSWS) DAMION MOYER ([id number]) 1945 F Date Time Provider Department 01/02/18 [...] UP VISIT - POST OP NAME: Damion Alejandro [facility] NO.: [id number] DATE OF SERVICE: July 02, 2017 : [...] Negative for malignancy in the sections examined. LISETH:keith 12/05/16 Over the last few months, she [...] follow up recommended. Jose Armando hill/julisa:06/25/2017 16:33:11 Pharmacy Buyer: Brittany DOS SANTOS(Esther)(Alla), [facility] letter sent: # Mo FU ? OVERALL STUDY BIRADS: 3 Probably benign finding - short term interval follow-up recommended Vp Product Marketing: Julisa Transcribe Date/Time: Jun 25 2017 ?3:35P Dictated by : JOSE ARMANDO DEL CID, DO This examination was interpreted and the report reviewed and electronically signed by: JOSE ARMANDO DEL CID, on Jun 25 2017 ?4:33PM ?EST Results-Findings * * *Final Report* * * DATE OF EXAM: Jun 25 2017 ?4:04PM ? WRU ? 0593 ?- ?[facility] GradFly BREAST LTD LT ?/ PROCEDURE REASON: multiple diagnoses ?? ? * * * * Physician Interpretation * * * * ?#[id number] - [facility] DIAGNOSTIC KARTHIK BILATERAL DIGITAL DIAGNOSTIC MAMMOGRAM WITH CAD: 06/25/2017 HISTORY: Multiple DiagnosesABNORMAL MAMMOGRAM ?PAIN LEFT BREAST. RESULT: TECHNIQUE: ?The study was acquired using full field digital technology and interpreted from soft copy. Current study was also evaluated with a Computer Aided Detection (CAD). Comparison is made to exams dated: ?05/17/2016 mammogram, 10/13/2015 mammogram, 04/14/2015 mammogram, 10/12/2014 mammogram - [facility], and 10/11/2014 mammogram - [facility]. There are scattered fibroglandular elements in both [...] in the left breast is probably benign. #[id number] - [facility] US BREAST LTD LT ULTRASOUND OF LEFT BREAST: 06/25/2017 RESULT: Comparison is made to exams dated: ?05/17/2016 mammogram, 10/13/2015 mammogram, 04/14/2015 mammogram, 10/12/2014 mammogram [facility], and 10/11/2014 mammogram - [facility]. Ultrasound of the left breast was performed. ?Barrientos scale images of the real-time examination were reviewed. There is a probably benign asymmetric density right breast that is not significantly changed. There is a 4 mm oval area in the left breast at 10 o'clock anterior depth. ?This oval area is hypoechoic. Her present mammogram and ultrasound was performed on December 25, 2017. ?#[id number] - [facility] DIAGNOSTIC LT UNILATERAL LEFT DIGITAL DIAGNOSTIC MAMMOGRAM [...] mammogram, 04/14/2015 mammogram, 10/12/2014 mammogram - [facility], and 10/11/2014 mammogram - [facility]. There are scattered fibroglandular elements in [...] malignancy. ?An ultrasound guided biopsy is recommended. #[id number] - [facility] US BREAST LTD LT ULTRASOUND OF LEFT BREAST: 12/25/2017 RESULT: Comparison is made to exams dated: ?06/25/2017 mammogram, 05/17/2016 mammogram, 10/13/2015 mammogram, 04/14/2015 mammogram, 10/12/2014 mammogram [facility], and 10/11/2014 mammogram - [facility]. Real-time ultrasound of the left breast [...] Rigoberto Bauer MD Referring Provider: RIGOBERTO BAUER [[id number]] Allergies As of Date: 01/02/2018 Noted Allergy [...] [N64.4] Other Visit Diagnosis:Lump of breast [N63.0] Order(s):[facility] DIAGNOSTIC BILAT [[id number]] Order #: [id number] FUTURE BREAST LTD LT [[id number]] Order #: [id number] FUTURE Prescriptions as of 01/02/2018 Sig: PREGABALIN [...] 01/02/18 PROGRESS Observed: 01/01/2018 Status: COMPLETED Source: [facility] 5:39 PM [facility] REPOSITORY HNO ID: [id number] Author: Cristin Abad Service: (none) Author Type: [...] she does NOT when she has appts. Director Of Rehabilitation plan for next outreach: Will follow up next week after decision made with Dr Bauer. Signature Cristin Abad hotel concierge [facility] January 01, 2018 VARUN Observed: 01/01/2018 Status: COMPLETED Source: [facility] 12:00 AM [facility] REPOSITORY Patient Outreach (INTMWS) JOÃODAMION ([id number]) 1945 F Date Time Provider Department 01/01/18 [...] she does NOT when she has appts. Director Of Rehabilitation plan for next outreach: Will follow up next week after decision made with Dr Bauer. Signature Cristin Abad hotel concierge [facility] [employer] Internal [facility] January 01, 2018 Allergies As of Date: [...] LPN - Fully Assessed Reason for Visit: Machine [employer] [facility] Chronic Care [[id number]] Prescriptions as of 01/01/2018 Sig: PREGABALIN 50 [...] 01/02/18 CHANDA Observed: 12/30/2017 Status: COMPLETED Source: [facility] 12:00 AM [facility] REPOSITORY Telephone (INTMWS) DAMION MOYER ([id number]) 1945 F Date Time Provider Department 12/30/17 JESUS FONG INTMWS During your visit today, we recorded the following information about you: Maribel Chery LPN 12/30/2017 8:17 AM Signed Patient calling to have Mara Abad cancel apt with [facility]. She is not able to make it. Her friend who was to drive her is sick and has her car. She was calling to have you cancel apt. Maribel Chery LPN Cristin Abad RONAN Sloan 12/30/2017 4:44 PM Addendum Cancelled and rescheduled [...] BRONCHITIS W/O EXAC [J44.9] INVALID FOR*01/31/[address] SITE XTRNOD/SOLID ORG [C85.89] INVALID FOR*02/24/2007 NODULAR [...] 12/30/17 PROGRESS Observed: 12/27/2017 Status: COMPLETED Source: [facility] 9:34 AM [facility] REPOSITORY HNO ID: [id number] Author: Cristin Abad Service: (none) Author Type: Registered Nurse Type: Progress Notes Filed: 12/27/2017 10:29 AM Note Text: PRIMARY CARE COORDINATION FOLLOW-UP NOTE Provider Action/FYI Pt seen at [facility] yesterday. Obtaining records to review. No med changes. Her BP returned to normal there. Patient identified by name and date of . YES Spoke to patient Summary: Pt calls that she went to ER yesterday per recc of HH RN because BP was 240/90. She went to [facility]. We are in [rocess of [...] I assured her that order came from [facility] and she is NOT a candidate for [...] needs appt in next few days with Ajit to F/U but I explained it is MORE important fo rher to take her Lasix so we woll get reports and decide on F/U plan. Director Of Rehabilitation plan for next outreach: Will follow up Saturday. I scheduled an appt with Dr Khan with whom she is to F/U after her appt with Dr Bauer. I also notified her about appt at [facility] on Sat. She states she doesn't know if she can make it. She is to notify me if she does not. Signature Cristin Abad RN Ambulatory [facility] December 27, 2017 VARUN Observed: 12/27/2017 Status: COMPLETED Source: [facility] 12:00 AM [facility] REPOSITORY Patient Outreach (INTMWS) JOÃODAMION Alejandro ([id number]) 1945 F Date Time Provider Department 12/27/17 CRISTIN DUFFY During your visit today, we recorded the following information about you: Cristin Sloan RN 12/27/2017 10:29 AM Signed PRIMARY CARE COORDINATION FOLLOW-UP NOTE Provider Action/FYI Pt seen at [facility] yesterday. Obtaining records to review. No med changes. Her BP returned to normal there. Patient identified by name and date of . YES Spoke to patient Summary: Pt calls that she went to ER yesterday per recc of HH RN because BP was 240/90. She went to [facility]. We are in [rocess of [...] I assured her that order came from [facility] and she is NOT a candidate for [...] needs appt in next few days with Ajit to F/U but I explained it is MORE important fo rher to take her Lasix so we woll get reports and decide on F/U plan. Director Of Rehabilitation plan for next outreach: Will follow up Saturday. I scheduled an appt with Dr Khan with whom she is to F/U after her appt with Dr Bauer. I also notified her about appt at [facility] on Sat. She states she doesn't know if she can make it. She is to notify me if she does not. Signature Cristin Abad RN Ambulatory [facility] December 27, 2017 Allergies As of Date: [...] LPN - Fully Assessed Reason for Visit: Machine [employer] [facility] Chronic Care [[id number]] Prescriptions as of 12/27/2017 Sig: LANCETS Test [...] BRONCHITIS W/O EXAC [J44.9] INVALID FOR*01/31/[address] [facility] SITE XTRNOD/SOLID ORG [C85.89] INVALID FOR*02/24/2007 NODULAR [...] 1 VIEW Observed: 12/26/2017 Status: F Source: [employer] 3:47 PM [facility] REPOSITORY ORIGINAL XR CHEST 1 VIEW CLINICAL [...] Kathy Maldonado MD Preliminary Report By: Kathy Maldonado MD Electronically Signed By: Kathy Maldonado MD Dictated Date: 12/26/2017 3:49:55 PM Prelim Date: 12/26/2017 3:49:55 PM Sign Date: 12/26/2017 3:50:54 PM CBC Collected: 12/26/2017 Status: F Source: [employer] 3:36 PM [facility] REPOSITORY TYPE CODE TESTS RESULT OUT [...] Performed By: #### CBC, ADIFF, ANEU #### [address] [address] #### TROP, BMP, GFR, PBNP #### [address] [address] .AUTO DIFF Collected: 12/26/2017 Status: F Source: [facility] 3:36 PM FOUNDATION REPOSITORY TYPE CODE [...] Performed By: #### CBC, ADIFF, ANEU #### [address] [address] #### TROP, BMP, GFR, PBNP #### [address] [address] .NEUABS Collected: 12/26/2017 Status: F Source: [facility] 3:36 PM [facility] REPOSITORY TYPE CODE TESTS RESULT OUT OF REFERENCE UNITS RANGE LAB ANEU(LOINC) 2.85-6.16 10 3/mcL High Neutrophil, 6.80 Absolute Performed By: #### CBC, ADIFF, ANEU #### [id number] [place], [place] [address] #### TROP, BMP, GFR, PBNP #### [place] [address] TROP Collected: 12/26/2017 Status: F Source: [facility] 3:36 [facility] REPOSITORY TYPE CODE TESTS RESULT OUT OF REFERENCE UNITS RANGE LAB TROP(LOINC) 0.000-0.040 ng/mL Troponin <0.020 Result Comment: Troponin I reference range: 0.00-0.040 ng/mL Negative and non-diagnostic. >0.040 ng/mL Consistent with cardiac damage, increased clinical risk and possibility of myocardial infarction. Serial measurements, a rise & fall in test results, clinical history, appropriate symptoms and/or ECG changes may help assess possibility of TN. *Other non-acute coronary syndrome conditions such as CHF, myocarditis, pulmonary emboli, sepsis and cardiac surgery could result in myocardial damage and increased troponin levels. Performed By: #### CBC, VERA, ANEU #### [address] [address] #### TROP, BMP, GFR, PBNP #### [place] [address] BMP Collected: 12/26/2017 Status: F Source: [facility] 3:36 [facility] REPOSITORY TYPE CODE TESTS RESULT OUT OF [...] mg/dL Calcium Lvl 8.6 Performed By: #### VERA VARGAS, ANEU #### [address] [place], [place] [address] #### TROP, BMP, GFR, PBNP #### [address] [address] .GFR Collected: 12/26/2017 Status: F Source: [facility] 3:36 PM [facility] REPOSITORY TYPE CODE TESTS RESULT OUT OF REFERENCE UNITS RANGE LAB GFRAA(LOINC ml/min/1.73 ) sqm GFR 107 [place] Result Comment: GFR Population mean for , [...] 15 mL/min/1.73 square meters Performed By: #### SAM, VREA, ANEU #### [address] [address] #### TROP, BMP, GFR, PBNP #### [address] [address] PBNP Collected: 12/26/2017 Status: F Source: [facility] [facility] 3:36 PM FOUNDATION REPOSITORY TYPE CODE TESTS RESULT OUT OF REFERENCE UNITS RANGE LAB PBNP(LOINC) 0-125 pg/mL High N-Terminal 1127 proBNP Result Comment: NT-proBNP results of less than 300 pg/mL effectively rules out acute congestive heart failure with 99% negative predictive value. Performed By: #### CBC, ADIFF, ANEU #### [address] [address] #### TROP, BMP, GFR, PBNP #### [place] [id number] CNCO Observed: 12/25/2017 Status: COMPLETED Source: [facility] 3:35 PM [facility] REPOSITORY HNO ID: [id number] Author: Mammography Coordinator Service: (none) Author Type: Physician Type: Letter Filed: 12/26/2017 11:32 PM Note Text: December 25, 2017 PID: [id number] Damion Moyer [address] [place] [address] Dear Ms. Moyer, Your recent breast imaging [...] needs. Sincerely, Dr. Barreto Interpreting Radiologist [facility] (Abnormal) CNCO Observed: 12/25/2017 Status: COMPLETED Source: [facility] 3:35 PM [facility] REPOSITORY HNO ID: [id number] Author: Mammography Coordinator Service: (none) Author Type: Physician Type: Letter Filed: 12/26/2017 11:32 PM Note Text: December 25, 2017 PID: [id number] Damion Moyer [address] [place] [address] Dear Claudette João, Your recent breast imaging exam on 12/25/2017 [...] needs. Sincerely, Dr. Barreto Interpreting Radiologist [facility] (Abnormal) [email or web address] BREAST [employer]TD Observed: 12/25/2017 Status: F Source: [facility] 3:26 PM [facility] REPOSITORY * * *Final Report* * * DATE OF EXAM: Dec 25 2017 3:26PM WRU 0593 - [email or web address] BREAST Pharm[employer] LT / PROCEDURE REASON: multiple diagnoses * * * * Physician Interpretation * * * * #[id number] - [facility] UNILATERAL LEFT DIGITAL DIAGNOSTIC MAMMOGRAM [...] mammogram, 04/14/2015 mammogram, 10/12/2014 mammogram - [facility], and 10/11/2014 mammogram - [facility]. There are scattered fibroglandular elements in the [...] malignancy. An ultrasound guided biopsy is recommended. #[id number] - [employer] LT ULTRASOUND OF LEFT BREAST: 12/25/2017 RESULT: Comparison is made to exams dated: 06/25/2017 mammogram, 05/17/2016 mammogram, 10/13/2015 mammogram, 04/14/2015 mammogram, 10/12/2014 mammogram - [facility], and 10/11/2014 mammogram - [facility]. Real-time ultrasound of the left breast [...] guided biopsy is recommended. Jocy camargo/julisa:12/25/2017 15:35:23 Pharmacy Buyer: Kell DOS SANTOS(Esther)(Alla), [facility] letter sent: Abnormal Mammogram BI-RADS: 4 Suspicious [...] Health, Family Medicine, and Medical/Surgical Oncology, the [facility] has carefully reviewed the data and reached [...] their providers when to stop screening mammograms. Vp Product Marketing: Julisa Transcribe Date/Time: Dec 25 2017 2:32P Dictated by : JOCY BARRETO MD This examination was interpreted and the report reviewed and electronically signed by: JOCY BARRETO MD on Dec 25 2017 3:35PM EST [id number] PROGRESS Observed: 12/25/2017 Status: COMPLETED Source: [facility] 3:14 PM [facility] REPOSITORY HNO ID: [id number] Author: Kimmie Costa Service: (none) Author Type: Room Service Server Type: Progress Notes Filed: 12/25/2017 3:14 PM [...] Not applicable SIGNED BY: KIMMIE COSTA RDMS RVBasim December 25, 2017 3:14 PM [facility] Observed: 12/25/2017 Status: F Source: [facility] 3:07 PM [facility] REPOSITORY * * *Final Report* * * DATE OF EXAM: Dec 25 2017 3:07PM [facility] 0621 - [facility] DIAG[facility] / PROCEDURE REASON: multiple diagnoses * * * * Physician Interpretation * * * * RESULT: #[id number] - [facility] DI[facility] UNILATERAL LEFT DIGITAL DIAGNOSTIC MAMMOGRAM [...] mammogram, 04/14/2015 mammogram, 10/12/2014 mammogram - [facility], and 10/11/2014 mammogram - [facility]. There are scattered fibroglandular elements in the [...] malignancy. An ultrasound guided biopsy is recommended. #[id number] - [facility] ULTRASOUND OF LEFT BREAST: 12/25/2017 RESULT: Comparison is made to exams dated: 06/25/2017 mammogram, 05/17/2016 mammogram, 10/13/2015 mammogram, 04/14/2015 mammogram, 10/12/2014 mammogram - [facility], and 10/11/2014 mammogram - [facility]. Real-time ultrasound of the left breast [...] guided biopsy is recommended. Jocy camargo/julisa:12/25/2017 15:35:23 Pharmacy Buyer: Kell DOS SANTOS(Esther)(Alla), [facility] letter sent: Abnormal Mammogram BI-RADS: 4 Suspicious [...] Health, Family Medicine, and Medical/Surgical Oncology, the [facility] has carefully reviewed the data and reached [...] their providers when to stop screening mammograms. Vp Product Marketing: Julisa Transcribe Date/Time: Dec 25 2017 2:32P Dictated by: JOCY BARRETO MD This examination was interpreted and the report reviewed and electronically signed by: JOCY BARRETO MD on Dec 25 2017 3:35PM EST [id number] PROGRESS Observed: 12/25/2017 Status: COMPLETED Source: [facility] 2:31 PM [facility] REPOSITORY HNO ID: [id number] Author: Laurie Dos Santos Service: (none) Author [...] DATA REVIEWED: Not Applicable RADIOLOGY DEPARTMENT: [facility] DATA: Not applicable SIGNED BY: Laurie Dotson Rt December 25, 2017 2:32 PM PROGRESS Observed: 12/24/2017 Status: COMPLETED Source: [facility] 4:43 PM [facility] REPOSITORY HNO ID: [id number] Author: Cristin Abad Service: (none) Author Type: [...] cries. Her daughter, who lives in a jail, accompanies her. Her son's mother in law [...] Call: Tomorrow with Tray appt Cristin Abad hotel concierge [employer] [facility] Internal [facility] December 24, 2017 PROGRESS Observed: 12/24/2017 Status: COMPLETED Source: [facility] 3:41 PM [facility] REPOSITORY HNO ID: [id number] Author: Jesus Fong Service: (none) Author Type: Physician Type: Progress Notes Filed: 01/05/2018 11:49 PM Note Text: Patient presents with: Recheck Imm/Inj: Flu Vaccine SUBJECTIVE: Damion Moyer is a 72 year old year old lady here today for follow up appointment for review of medical conditions. Reviewed that was at [facility] and admitted for just 2 days for diarrheal illness. [place] was sent out too early. After saw pain management, had temp 100.5 and went [facility]. Diagnosed with pneumonia and admitted for about [...] DM - Controlled E11.9 Insulin: Yes Insulin [place], Disposable, (BD ULTRAFINE III MINI PEN) 31 [...] COMPOUNDED PRESCRIPTION Please provide portable oxygen concentrator. [facility]. umeclidinium-vilanterol (ANORO ELLIPTA) 62.5-25 mcg/actuation [...] complication, without long-term current use of insulin ([facility]) E11.9 CONSULT TO AMBULATORY CLINIC PHARMACY 2. Dysthymic disorder F34.1 3. Generalized anxiety disorder F41.1 4. Chronic respiratory failure with hypoxia and hypercapnia ([facility]) J96.11 J96.12 5. Essential hypertension I10 CONSULT TO AMBULATORY CLINIC PHARMACY 6. Acquired hypothyroidism E03.9 7. Morbid obesity ([facility]) E66.01 8. Need for vaccination Z23 INFLUENZA [...] controlling diabetes mellitus. Emotional support given. Asked Director Of Rehabilitation to see if patient needs and qualifies [...] counseling and/or coordinating care for the patient. Jzzl-vg-wgpk time was at least 25 minutes. Jesus Fong MD PROGRESS Observed: 12/24/2017 Status: COMPLETED Source: [facility] 3:17 PM [facility] REPOSITORY O ID: [id number] Author: Tyesha Gonzalez LPN Service: (none) Author Type: (none) Type: Progress Notes Filed: 01/05/2018 11:49 PM Note Text: 72 year old female here for INACTIVATED INFLUENZA VACCINE. 3021-0756 Season Patient is identified by name and date of : Yes [] CONTRAINDICATIONS color enhanced section Age less than 6 months? No Allergy to eggs, chicken, chicken feathers, or chicken dander? No Allergy to thimerosal (a preservative) or formaldehyde, gelatin? No History of severe reaction to any vaccine component or a previous dose of influenza vaccination? 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 Yes See immunization activity in [facility] for details of immunizations adminstered today. Patient age: [age] year old For The Flu Season 6-35 months old: Fluzone 0.25 [...] time. SHRUTHI Observed: 12/24/2017 Status: COMPLETED Source: [facility] 2:40 PM [facility] REPOSITORY Office Visit (INTMWS) DAMION MOYER ([id number]) 1945 F Date Time Provider Department 12/24/17 [...] dose of influenza vaccination? 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 Yes See immunization activity in [facility] for details of immunizations adminstered today. Patient age: [age] year old For The 3591-7973 Flu Season 6-35 months old: Fluzone 0.25 [...] of medical conditions. Reviewed that was at [facility] and admitted for just 2 days for diarrheal illness. [place] was sent out too early. After saw pain management, had temp 100.5 and went [facility]. Diagnosed with pneumonia and admitted for about [...] times daily as needed. blood sugar diagnostic (BuyouTOUCH ULTRA TEST) test strip Test blood sugar(s) 4 times daily and as needed for symptoms of high or low sugars. Dx: Type 2 DM - Controlled E11.9 Insulin: Yes Insulin [place], Disposable, (BD ULTRAFINE III MINI PEN) 31 [...] BY MOUTH THREE TIMES DAILY. Blood-Glucose Meter (SNAPin SoftwareUCH ULTRA2) monitoring kit 1 Each as needed. One Touch Meter Kit Diagnosis: Type 2 DM - Controlled E11.9 azithromycin (ZITHROMAX) 250 mg tablet TAKE 1 TABLET BY MOUTH ONCE DAILY. COMPOUNDED PRESCRIPTION PAP titration sleep study. COMPOUNDED PRESCRIPTION Please provide portable oxygen concentrator. [facility]. umeclidinium-vilanterol (ANORO ELLIPTA) 62.5-25 mcg/actuation [...] complication, without long-term current use of insulin ([facility]) E11.9 CONSULT TO AMBULATORY CLINIC PHARMACY 2. Dysthymic disorder F34.1 3. Generalized anxiety disorder F41.1 4. Chronic respiratory failure with hypoxia and hypercapnia ([facility]) J96.11 J96.12 5. Essential hypertension I10 CONSULT TO AMBULATORY CLINIC PHARMACY 6. Acquired hypothyroidism E03.9 7. Morbid obesity ([facility]) E66.01 8. Need for vaccination Z23 INFLUENZA [...] controlling diabetes mellitus. Emotional support given. Asked Director Of Rehabilitation to see if patient needs and qualifies [...] counseling and/or coordinating care for the patient. Pgvf-ka-achi time was at least 25 minutes. Jesus Fong MD Referring Provider: JESUS FONG [[id number]] Allergies As of Date: 12/24/2017 Noted Allergy [...] [Z23] Order(s):INFLUENZA SEASONAL HIGH DOSE AGE 65+ [11622JIB] Order #: [id number] CONSULT TO AMBULATORY CLINIC PHARMACY [19990517] Order #: [id number]: 1 Prescriptions as of 12/24/2017 Sig: LANCETS [...] on 01/05/18 Observed: 12/24/2017 Status: F Source: [place] CULTURE, NOSE 11:00 AM [facility] REPOSITORY Gram Stain Gram Stain 2+ White Blood Cells No organisms seen Nasoph. Cult Mixed normal warren. No Haemophilus, Streptococcus pneumoniae, beta-hemolytic Streptococcus or Staphylococcus aureus isolated. Performed By: #### M100.0900 #### [facility] [place], [address] CNPTOUTREACH Observed: 12/24/2017 Status: COMPLETED Source: [facility] 12:00 AM [facility] REPOSITORY Patient Outreach (INTMWS) DAMION MOYER ([id number]) 1945 F Date Time Provider Department 12/24/17 CRISTIN DUFFY INTMWS During your visit today, we recorded [...] cries. Her daughter, who lives in a jail, accompanies her. Her son's mother in law is driving [employer]'s van since she cannot drive herself anymore. 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 [place] [address] OFFICE VISIT Date of Service: 12/18/17 MR#: [id number] Acct: [id number] Name: DAMION MOYER Rep #: [id number] : 1945 Provider: HECTOR Bush Age/Sex: 72/F [place] [facility]: Signed Intake Vital Signs12/18/17 Height 5 ft 1 in 12/18/17 Weight: 232 lb 12/18/17 Body Mass Index (BMI) 43.8 12/18/17 Blood Pressure 132/78 H Intake Visit Reasons: POSSIBLE UTERINE PROLAPSE Mems Engineer Required: No Is patient in pain?: No [...] [History Confirmed 12/18/17] Fluticasone 0.05% [Flonase Nasal [place]] 2 spray NASAL QHS 09/18/15 [History Confirmed [...] surgical intervention. She is currently resident at [facility], recent hospitalization for CHF, pneumonia. She is [...] <Electronically signed by Jon AMBROSIO> Date Jon ROBERTC Cosigner Signature: Date (if applicable) CC: PROGRESS Observed: 12/18/2017 Status: COMPLETED Source: [facility] 12:35 PM [facility] REPOSITORY O ID: [id number] Author: Trisha Harris) [place] Service: (none) Author Type: Physician Director Employee Communications Type: Progress Notes Filed: 12/18/2017 12:43 PM Note Text: Subjective HPI Pt presents with feeling like there is sand in her eyes and irritation for 2 weeks. Her custodial has been putting eye rewetting drops x [...] Yes Disp: 200 Strip Rfl: 11 Insulin [place], Disposable, (BD ULTRAFINE III MINI PEN) 31 [...] Disp: 90 tablet Rfl: 0 Blood-Glucose Meter (ONETOUCH ULTRA2) monitoring kit 1 Each as needed. One Touch Meter Kit Diagnosis: Type 2 DM - Controlled E11.9 Disp: 1 Each Rfl: 0 azithromycin (ZITHROMAX) 250 mg tablet TAKE 1 TABLET BY MOUTH ONCE DAILY. Disp: 30 tablet Rfl: 11 COMPOUNDED PRESCRIPTION PAP titration sleep study. Disp: 1 Each Rfl: 0 COMPOUNDED PRESCRIPTION Please provide portable oxygen concentrator. [facility]. Disp: 1 Each Rfl: 0 [...] lumps removed - COLONOSCOP W/ OR W/O [facility] SPEC 09/26/06 [address] [facility] [address] Collazo - COLONOSCOP W/ OR W/O [facility] SPEC 07/16/14 Colonoscopy [facility] out pt - COLONOSCOPY - Dr. Collazo - EGD tonsil tissue removed - EGD - EGD W/O OR W/BRUSH/WASH 08/04/09 gastric bx [facility] Dr. Collazo - EGD W/O OR W/BRUSH/WASH 01/19/14 EGD out pt [facility] - EXC TUMOR SOFT TISSUE ABDOMINAL WALL SUBQ 3+CM 12/03/2016 chronic fat necrosis - HEMORRHOIDECTOMY - MASTECTOMY, PARTIAL 12/03/2016 [facility] - wide excision 2nd to breast trauma [...] as well on 12/24. Trisha Garcia PA-C CNOV Observed: 12/18/2017 Status: COMPLETED Source: [facility] 11:45 AM [facility] REPOSITORY Office Visit (WSTR) DAMION MOYER ([id number]) 1945 F Date Time Provider Department 12/18/17 11:45 AM TRISHA GARCIA (MADAN) UCWSTR During your visit today, we recorded the following information about you: Temperature Pulse Respiration Blood pressure 98.2 degrees 76/minute 16/minute 110/64 Trisha Garcia PA-C 12/18/2017 12:43 PM Signed Subjective HPI Pt presents with feeling like there is sand in her eyes and irritation for 2 weeks. Her custodial has been putting eye rewetting drops x [...] Yes Disp: 200 Strip Rfl: 11 Insulin [place], Disposable, (BD ULTRAFINE III MINI PEN) 31 [...] Disp: 90 tablet Rfl: 0 Blood-Glucose Meter (ONETOUCH ULTRA2) monitoring kit 1 Each as needed. One Touch Meter Kit Diagnosis: Type 2 DM - Controlled E11.9 Disp: 1 Each Rfl: 0 azithromycin (ZITHROMAX) 250 mg tablet TAKE 1 TABLET BY MOUTH ONCE DAILY. Disp: 30 tablet Rfl: 11 COMPOUNDED PRESCRIPTION PAP titration sleep study. Disp: 1 Each Rfl: 0 COMPOUNDED PRESCRIPTION Please provide portable oxygen concentrator. [facility]. Disp: 1 Each Rfl: 0 [...] lumps removed - COLONOSCOP W/ OR W/O [facility] SPEC 09/26/[address] [facility] [address] Collazo - COLONOSCOP W/ OR W/O [facility] SPEC 07/16/14 Colonoscopy [facility] out pt - COLONOSCOPY 3-11 Dr. Collazo - EGD tonsil tissue removed - EGD - EGD W/O OR W/BRUSH/WASH 08/04/09 gastric bx [facility] Dr. Collazo - EGD W/O OR W/BRUSH/WASH 01/19/14 EGD out pt [facility] - EXC TUMOR SOFT TISSUE ABDOMINAL WALL SUBQ 3+CM 12/03/2016 chronic fat necrosis - HEMORRHOIDECTOMY - MASTECTOMY, PARTIAL 12/03/2016 [facility] - wide excision 2nd to breast trauma [...] 12/12/2017 Status: F Source: [facility] 5:45 AM [facility] REPOSITORY Order Comment: ROOM 404 TYPE CODE [...] Lymph 1.55 Performed By: #### L100.0100 #### [facility] [address] [place], [place], [address] BASIC METABOLIC Collected: 12/12/2017 Status: F Source: [place] PROFILE ([facility]) 5:45 AM [facility] REPOSITORY Order Comment: ROOM 404 TYPE CODE [...] GAP 7 Performed By: #### L500.2500 #### [facility] [address] [facility] [address] [place], [place], [address] BASIC METABOLIC Collected: 12/05/2017 Status: F Source: [place] PROFILE ([facility]) 6:25 AM [facility] REPOSITORY Order Comment: ROOM 404 TYPE CODE [...] GAP 5 Performed By: #### L500.2500 #### [facility] [address] [place], [address] Observed: 11/28/2017 Status: F Source: [place] CDIFF (MOLECULAR) 9:30 AM [facility] REPOSITORY Cdiff-Molecular Normal Reference Range = Negative C. Diff DNA Negative- No toxigenic C. Diff DNA Detected NAAT METHOD Testing was performed using nucleic acid amplification Performed By: #### M100.6796 #### [facility] [address] [place], [address] CBC W/DIFF, AUTOMATED Collected: 11/28/2017 Status: F Source: [place] 5:45 AM [facility] REPOSITORY Order Comment: ROOM 404 TYPE CODE [...] Lymph 1.13 Performed By: #### L100.0100 #### [facility] [address] [place], [address] BASIC METABOLIC Collected: 11/28/2017 Status: F Source: [place] PROFILE ([facility]) 5:45 AM [facility] REPOSITORY Order Comment: ROOM 404 TYPE CODE [...] GAP 9 Performed By: #### L500.2500 #### [facility] [place], [address] CBC Collected: 11/23/2017 Status: F Source: [facility] 6:16 AM [facility] REPOSITORY TYPE CODE TESTS [...] Performed By: #### CBC, ADIFF, ANEU #### [address] [address] #### BMP, GFR #### [place] [address] .AUTO DIFF Collected: 11/23/2017 Status: F Source: [facility] 6:16 AM [facility] REPOSITORY TYPE CODE TESTS RESULT OUT [...] Performed By: #### CBC, ADIFF, ANEU #### [address] [address] #### BMP, GFR #### [place] [address] .NEUABS Collected: 11/23/2017 Status: F Source: [facility] 6:16 AM [facility] REPOSITORY TYPE CODE TESTS RESULT OUT OF REFERENCE UNITS RANGE LAB ANEU(LOINC) 2.85-6.16 10 3/mcL High Neutrophil, 8.30 Absolute Performed By: #### CBC, ADIFF, ANEU #### [place] [address] #### BMP, GFR #### [place] [address] BMP Collected: 11/23/2017 Status: F Source: [facility] 6:16 AM [facility] REPOSITORY TYPE CODE TESTS RESULT OUT [...] Performed By: #### CBC, ADIFF, ANEU #### [address] [address] #### BMP, GFR #### [facility] [address] [place] [address] .GFR Collected: 11/23/2017 Status: F Source: [facility] 6:16 AM [facility] REPOSITORY TYPE CODE TESTS RESULT OUT OF REFERENCE UNITS RANGE LAB GFRAA(LOINC ml/min/1.73 ) sqm GFR 127 [place] Result Comment: GFR Population mean for , [...] Performed By: #### CBC, ADIFF, ANEU #### [facility] [address] [place], [place] [address] #### BMP, GFR #### [address] [address] MG Collected: 11/23/2017 Status: F Source: [facility] 6:16 AM [facility] REPOSITORY TYPE CODE TESTS RESULT OUT OF REFERENCE UNITS RANGE LAB MG(LOINC) 1.8-2.4 mg/dL Magnesium Lvl 2.0 Performed By: #### MG #### [place] [address] TROP Collected: 11/22/2017 Status: F Source: [employer] 10:14 PM [facility] REPOSITORY TYPE CODE TESTS RESULT OUT [...] ECG changes may help assess possibility of TN. *Other non-acute coronary syndrome conditions such as CHF, myocarditis, pulmonary emboli, sepsis and cardiac surgery could result in myocardial damage and increased troponin levels. Performed By: #### TROP #### [place] [address] XR CHEST 1 VIEW Observed: 11/22/2017 Status: F Source: [facility] [employer] 5:18 PM [facility] REPOSITORY ORIGINAL Chest radiograph outside hospital 03/03/2012 [...] PM UA Collected: 11/22/2017 Status: F Source: [facility] 4:48 PM [facility] REPOSITORY TYPE CODE TESTS RESULT OUT [...] Negative Performed By: #### UA, UAMICAO #### [facility] [address] [address] .URINALYSIS MICROSCOPIC Collected: 11/22/2017 Status: F Source: [facility] ([place]) 4:48 PM [facility] REPOSITORY TYPE CODE TESTS RESULT OUT OF RANGE REFERENCE UNITS LAB WBCUA(LOIN None Seen /hpf C) UA WBC None Seen LAB RBCUA(LOIN None Seen /hpf C) Unknown UA RBC 0-5 LAB EPIUA(LOIN None Seen /hpf C) UA Squam Epithelial None Seen LAB MUCUA(LOIN /hpf C) UA Mucous 1+ LAB AMOUA(LOIN /hpf C) UA Amorphus 1+ Performed By: #### UA, UAMICAO #### [address] [address] CBC Collected: 11/22/2017 Status: F Source: [facility] 4:48 PM [facility] REPOSITORY TYPE CODE TESTS RESULT OUT [...] Performed By: #### CBC, ADIFF, ANEU #### [address] [address] #### BMP, TROP, PBNP, GFR, LAC #### [address] [address] .AUTO DIFF Collected: 11/22/2017 Status: F Source: [facility] 4:48 PM [facility] REPOSITORY TYPE CODE TESTS RESULT OUT [...] Performed By: #### CBC, ADIFF, ANEU #### [address] [address] #### BMP, TROP, PBNP, GFR, LAC #### [address] [address] .NEUABS Collected: 11/22/2017 Status: F Source: [facility] 4:48 PM [facility] REPOSITORY TYPE CODE TESTS RESULT OUT OF REFERENCE UNITS RANGE LAB ANEU(LOINC) 2.85-6.16 10 3/mcL High Neutrophil, 8.40 Absolute Performed By: #### CBC, ADIFF, ANEU #### [address] [address] #### BMP, TROP, PBNP, GFR, LAC #### [address] [address] BMP Collected: 11/22/2017 Status: F Source: [facility] 4:48 PM [facility] REPOSITORY TYPE CODE TESTS RESULT [...] Performed By: #### CBC, ADIFF, ANEU #### [address] [address] #### BMP, TROP, PBNP, GFR, LAC #### [place] [address] TROP Collected: 11/22/2017 Status: F Source: [facility] 4:48 PM [facility] REPOSITORY TYPE CODE TESTS RESULT OUT [...] ECG changes may help assess possibility of TN. *Other non-acute coronary syndrome conditions such as CHF, myocarditis, pulmonary emboli, sepsis and cardiac surgery could result in myocardial damage and increased troponin levels. Performed By: #### CBC, ADIFF, ANEU #### [place] [address] #### BMP, TROP, PBNP, GFR, LAC #### [place] [address] PBNP Collected: 11/22/2017 Status: F Source: [facility] 4:48 PM [facility] REPOSITORY TYPE CODE TESTS RESULT OUT OF REFERENCE UNITS RANGE LAB PBNP(LOINC) 0-125 pg/mL High N-Terminal 1674 proBNP Result Comment: NT-proBNP results of less than 300 pg/mL effectively rules out acute congestive heart failure with 99% negative predictive value. Performed By: #### CBC, ADIFF, ANEU #### [place] [address] #### BMP, TROP, PBNP, GFR, LAC #### [place] [id number] .GFR Collected: 11/22/2017 Status: F Source: [facility] 4:48 PM [facility] REPOSITORY TYPE CODE TESTS RESULT OUT OF REFERENCE UNITS RANGE LAB GFRAA(LOINC ml/min/1.73 ) sqm GFR 138 Qatari Result Comment: GFR Population mean for , [...] Performed By: #### CBC, ADIFF, ANEU #### [address] [address] #### BMP, TROP, PBNP, GFR, LAC #### [address] [address] LAC Collected: 11/22/2017 Status: F Source: [facility] 4:48 PM [facility] REPOSITORY TYPE CODE TESTS RESULT OUT OF REFERENCE UNITS RANGE LAB LAC(LOINC) 0.4-2.0 mmol/L Lactic Acid 0.9 Lvl Performed By: #### CBC, ADIFF, ANEU #### [address] [address] #### BMP, TROP, PBNP, GFR, LAC #### [place] [address] Observed: 11/22/2017 Status: F Source: [facility] 4:48 PM [facility] REPOSITORY . MICRO - Microbiology PROCEDURE: Blood [...] Locations *1: This test was performed at: [address] Performed By: #### CBL #### [place] [address] Observed: 11/22/2017 Status: F Source: [facility] 4:48 PM [facility] REPOSITORY . MICRO - Microbiology PROCEDURE: Blood [...] Locations *1: This test was performed at: [address] Performed By: #### CBL #### [address] [address] Observed: 11/22/2017 Status: F Source: [facility] 4:48 PM [facility] REPOSITORY . MICRO - [...] Locations *1: This test was performed at: [address], [facility] Performed By: #### CUR #### [address] [address] CNPN Observed: 11/21/2017 Status: COMPLETED Source: [place] [facility] 12:00 AM [facility] REPOSITORY Telephone (FRANK) DAMION MOYER ([id number]) 1945 F Date Time Provider Department 11/21/17 TK KHAN During your visit today, we recorded the following information about you: Radha Lee Psr 11/21/2017 12:33 PM Signed Damion Talamanteseton called, wanting someone to call her with the tests of her ct scan. Call her at [phone] Michelle Byrd LPN, MICHELE 11/21/2017 1:20 PM Signed [...] Date Reviewed: 11/18/2017 Reviewed by: Andry Mahmood Post Framer - Fully Assessed Reason for Visit: Results [...] BEDSIDE GLUCOSE Collected: 11/20/2017 Status: F Source: [place] 1:34 PM [facility] REPOSITORY TYPE CODE TESTS RESULT OUT OF REFERENCE UNITS RANGE LAB L501.080 70-110 mg/dL High BEDSIDE GLU 136 Result Comment: MANAGEMENT OF PATIENT CARE PER NURSING PROTOCOL Performed By: #### L501.080 #### [facility] Point of Care [address] [place] [address] DISCHARGE INSTRUCTION Observed: 11/20/2017 Status: F Source: [place] 1:21 PM [facility] REPOSITORY [facility] Medical Records Department [address] [place] [address] Instructions for Home/Discharge Instructions 11/20/17 1156 MR#: [id number] Acct: [id number] Name: DAMION MOYER Rep #: [id number] : 1945 72 From: Lubna Gaspar MD PCP: Jesus Fong MD Status: ADM CHARISMA ADDENDUM by Lubna Gaspar MD on 11/20/17 at [address]1 [address] follow up with Dr Collazo (commissary agent) in 1- 2 weeks. Please call his office for an appointment. Date Lubna Gaspar MD cc: Jesus Fnog MD * Signed - Discharge Diagnoses Current [...] amoxicillin trihydrate [From Augmentin] Allergy (Verified 10/11/17 15:) Hives latex Allergy (Verified 10/11/17 15:) Rash Latex, Natural Rubber Allergy (Verified 10/11/17 15:26) Rash metronidazole [From Flagyl] Allergy (Verified 10/11/17 15:26) Hives Metronidazole HCl [From Flagyl] Allergy (Verified 10/11/17 15:26) Hives Penicillins [PCN] Allergy (Verified 11/18/17 21:28) Hives potassium clavulanate [From Augmentin] Allergy (Verified 10/11/17 15:) Hives sulfamethoxazole [From Bactrim] Allergy (Verified 10/11/17 15:) Hives hives trimethoprim [From Bactrim] Allergy (Verified 10/11/17 15:) Hives hives diphenhydramine HCl [From Benadryl] Adverse [...] PO QHS 09/18/15 Fluticasone 0.05% [Flonase Nasal Thurston] 2 spray NASAL QHS 09/18/15 Liraglutide [Victoza [...] DISCHARGE SUMMARY Observed: 11/20/2017 Status: F Source: [place] 1:20 PM [facility] REPOSITORY [facility] Medical Records Department [address] [place] [address] Discharge Summary 11/20/17 1158 MR#: [id number] Acct: [id number] Name: DAMION MOYER Rep #: [id number] : 1945 72 From: Lubna Gaspar MD PCP: Jesus Fong MD Status: ADM CHARISMA Y Location: [place] [address] Discharge Date and Diagnosis - Problem List [...] disease (Chronic) IBS (irritable bowel syndrome) (Chronic) long-term use of drug (Chronic) Antihyperlipidemic Nonrheumatic aortic [...] PO QHS 09/18/15 Fluticasone 0.05% [Flonase Nasal [place]] 2 spray NASAL QHS 09/18/15 Liraglutide [Victoza 2-Lizet] 1.2 mg SQ DAILY 09/18/15 Pregabalin [Lyrica] 50 mg PO TID 07/10/16 traZODone [Desyrel] 150 mg PO QHS 11/26/16 [...] applicable Code Visit Inpatient E AND M: 24222 Disch Hosp 11/20/17 1320 <Electronically signed by Lubna Gaspar MD> Date Lubna Gaspar MD Cosigner Signature (if applicable): Date CC: Jesus Fong MD; Lubna Gaspar MD Signed BEDSIDE GLUCOSE Collected: 11/20/2017 Status: F Source: [place] 7:15 AM [facility] REPOSITORY TYPE CODE TESTS RESULT OUT OF REFERENCE UNITS RANGE LAB L501.080 70-110 mg/dL High BEDSIDE GLU 136 Result Comment: MANAGEMENT OF PATIENT CARE PER NURSING PROTOCOL Performed By: #### L501.080 #### [facility] Point of Care [address] [place], [place] [id number] CBC W/DIFF, AUTOMATED Collected: 11/20/2017 Status: F Source: [place] 5:50 AM [facility] REPOSITORY Order Comment: SPECIMEN OBTAINED FROM LINE [...] Lymph 1.29 Performed By: #### L100.0100 #### [facility] [address] [place], [address] BASIC METABOLIC Collected: 11/20/2017 Status: F Source: [place] PROFILE (BMP) 5:50 AM [facility] REPOSITORY Order Comment: SPECIMEN OBTAINED FROM LINE [...] GAP 6 Performed By: #### L500.2500 #### [facility] [address] [place], [address] BEDSIDE GLUCOSE Collected: 11/19/2017 Status: F Source: [place] 10:09 PM [facility] REPOSITORY TYPE CODE TESTS RESULT OUT OF RANGE REFERENCE UNITS LAB L501.080 70-110 mg/dL Normal BEDSIDE GLU 109 Result Comment: MANAGEMENT OF PATIENT CARE PER NURSING PROTOCOL Performed By: #### L501.080 #### [facility] Point of Care [address] [place], [place] [address] STOOL Observed: 11/19/2017 Status: F Source: [place] LACTOFERRIN/WBC 8:20 PM [facility] REPOSITORY Stool Lacto/WBC Normal Reference Range = Negative Fecal WBC Lactoferrin Negative: No Fecal WBC Lactoferrin present Performed By: #### M100.0605 #### [facility] [address] [place], [place], [address] Observed: 11/19/2017 Status: F Source: [place] OVA AND PARASITES 8:20 PM [facility] REPOSITORY Order Date: 11/18/17 Has pt arrived? Y O + P OVA AND PARASITES EXAM, ROUTINE These results were obtained using wet preparation(s) and trichrome stained smear. This test does not include testing for Crytosporidium parvum, Cyclospora, or Microsporidia. TESTING PERFORMED AT [facility]. ORIGINAL REPORT ON FILE IN LAB CONTAINS ADDITIONAL TEST SITE INFORMATION. Ova/Parasite Exam NO OVA, CYSTS, OR PARASITES FOUND. Performed By: #### M600.5000 #### [facility] [address] [place], [address] BEDSIDE GLUCOSE Collected: 11/19/2017 Status: F Source: [place] 5:26 PM [facility] REPOSITORY TYPE CODE TESTS RESULT OUT OF RANGE REFERENCE UNITS LAB L501.080 70-110 mg/dL Normal BEDSIDE GLU 104 Result Comment: MANAGEMENT OF PATIENT CARE PER NURSING PROTOCOL Performed By: #### L501.080 #### [facility] Point of Care [address] [place], [place] [address] BEDSIDE GLUCOSE Collected: 11/19/2017 Status: F Source: [place] 12:17 PM [facility] REPOSITORY TYPE CODE TESTS RESULT OUT OF REFERENCE UNITS RANGE LAB L501.080 70-110 mg/dL High BEDSIDE GLU 147 Result Comment: MANAGEMENT OF PATIENT CARE PER NURSING PROTOCOL Performed By: #### L501.080 #### [facility] Point of Care [address] [place] [address] BEDSIDE GLUCOSE Collected: 11/19/2017 Status: F Source: [place] 7:05 AM [facility] REPOSITORY TYPE CODE TESTS RESULT OUT OF REFERENCE UNITS RANGE LAB L501.080 70-110 mg/dL High BEDSIDE GLU 115 Result Comment: MANAGEMENT OF PATIENT CARE PER NURSING PROTOCOL Performed By: #### L501.080 #### [facility] Point of Care [address] [place] [address] CBC W/DIFF, AUTOMATED Collected: 11/19/2017 Status: F Source: [place] 5:55 AM [facility] REPOSITORY Order Comment: SPECIMEN OBTAINED FROM LINE [...] Lymph 1.73 Performed By: #### L100.0100 #### [facility] [address] [place], [address] BASIC METABOLIC Collected: 11/19/2017 Status: F Source: [place] PROFILE ([facility]) 5:55 AM [facility] REPOSITORY Order Comment: SPECIMEN OBTAINED FROM LINE [...] GAP 7 Performed By: #### L500.2500 #### [facility] [address] [place], [place], [address] Observed: 11/19/2017 Status: F Source: [place] CDIFF (MOLECULAR) 2:15 AM [facility] REPOSITORY Is the patient receiving laxatives? N New/unexplained onset of 3 or more stools in past 24 hrs? Y Order Date: 11/18/17 Has pt arrived? Y Cdiff-Molecular Normal Reference Range = Negative C. Diff DNA Negative- No toxigenic C. Diff DNA Detected NAAT METHOD Testing was performed using nucleic acid amplification Performed By: #### M100.6796 #### [facility] [address] [place], [place], [address] Observed: 11/19/2017 Status: F Source: [place] ENTERIC PATHOGEN 2:15 AM [facility] PANEL STOOL REPOSITORY Order Date: 11/18/17 Has [...] Not Detected Performed By: #### M100.637 #### [facility] [address] [place], [place], [address] BEDSIDE GLUCOSE Collected: 11/19/2017 Status: F Source: [place] 12:03 AM [facility] REPOSITORY TYPE CODE TESTS RESULT OUT OF RANGE REFERENCE UNITS LAB L501.080 70-110 mg/dL Normal BEDSIDE GLU 109 Result Comment: MANAGEMENT OF PATIENT CARE PER NURSING PROTOCOL Performed By: #### L501.080 #### [facility] Point of Care [address] [place] [address] HISTORY AND PHYSICAL Observed: 11/18/2017 Status: F Source: [place] EXAM 8:34 PM [facility] REPOSITORY [facility] Medical Records Department [address] [place] [address] History and Physical 11/18/171952 MR#: [id number] Acct: [id number] Name: DAMION MOYER Rep #: [id number] : 1945 72 From: Milagros Muñoz PCP: Jesus Fong MD Status: ADM CHARISMA Y Location: [place] [address] Problem List (1) Gastroenteritis Status: Acute (2) [...] type II Status: Chronic Qualifiers: Diabetes mellitus termite helper insulin use: with fci use Diabetes mellitus complication status: with unspecified complications Qualified Code(s): E11.8 - Type 2 diabetes mellitus with unspecified complications; Z79.4 - watermelon inspector (current) use of insulin (16) Sleep apnea [...] History of IBS who presents to the [facility] ED on 11/18/17 with history of diarrhea [...] avoid loose stools. She had c-scope at [facility] 3-5 months prior with unclear results. She [...] disease (Chronic) IBS (irritable bowel syndrome) (Chronic) watermelon inspector use of drug (Chronic) Antihyperlipidemic Nonrheumatic aortic [...] surery, T+A, hemorrhoidectomy. 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: Anxiety, Depression TATTOO ARTIST History: No pertinent TATTOO ARTIST history Lives: Alone Smoking Status: Never smoker [...] History of IBS who presents to the [facility] ED on 11/18/17 with history of diarrhea [...] follow-up for patient IBS. Requested records from [facility] most recent colonoscopy. (2) Hypokalemia: Admission K+ [...] does have living will in place [facility]. Discussed CODE status [...] Face Time: 17 minutes. Code Visit OBSV E AND M: 58394 Initial observation care L3 Procedures: 16668 Advncd Care Plan 30 Min 11/18/172033 <Electronically signed by Milagros Muñoz > Date Milagros Muñoz Cosigner Signature: Date (if applicable) CC: Milagros Muñoz; Jesus Fong MD Signed EMERGENCY DEPARTMENT Observed: 11/18/2017 Status: F Source: [place] SUMMARY 7:54 PM [facility] REPOSITORY [facility] Medical Records Department [address] [place] [address] Emergency Department Summary 11/18/171950 MR#: [id number] Acct: [id number] Name: DAMION MOYER Rep #: [id number] : 1945 72 From: Jocelyn Muniz DO [...] Abdominal pain] This note was generated with GotGame dictation software. It may contain incorrect words, [...] your Primary Care Provider. Call [facility] ([phone]) or report to the closest Emergency Room. Call 911 if necessary. 11/18/171953 <Electronically signed by Jocelyn Muniz DO> Date Jocelyn Muniz DO Cosigner Signature (If Indicated): Date CC: Jesus Fong MD CBC W/DIFF, AUTOMATED Collected: 11/18/2017 Status: F Source: [place] 5:37 PM [facility] REPOSITORY TYPE CODE TESTS RESULT [...] Lymph 1.59 Performed By: #### L100.0100 #### [facility] [address] [place], [place], [address] LACTIC ACID Collected: 11/18/2017 Status: F Source: [place] 5:37 PM [facility] REPOSITORY Order Comment: Yes/No query for Sepsis Lactate Rule Y TYPE CODE TESTS RESULT OUT OF RANGE REFERENCE UNITS LAB L503.6005 0.4-2.0 mmol/L Normal LACTIC ACID 0.6 Performed By: #### L503.6005 #### [facility] [address] [place], [place], [address] COMPREHENSIVE METABOLIC Collected: 11/18/2017 Status: F Source: [place] MORALES 5:37 PM [facility] REPOSITORY TYPE CODE TESTS RESULT [...] 11 Performed By: #### L500.4050, L501.2450 #### [facility] [address] [place], [address] LIPASE Collected: 11/18/2017 Status: F Source: [place] 5:37 PM [facility] REPOSITORY TYPE CODE TESTS RESULT OUT OF RANGE REFERENCE UNITS LAB L501.2450 73-393 U/L Normal LIPASE 131 Performed By: #### L500.4050, L501.2450 #### [facility] [address] [place], [address] PHOSPHORUS Collected: 11/18/2017 Status: F Source: [place] 5:37 PM [facility] REPOSITORY TYPE CODE TESTS RESULT OUT OF RANGE REFERENCE UNITS LAB L501.2300 2.5-4.9 mg/dL Normal PHOS 3.0 Performed By: #### L501.2300, L501.5200, L501.9520, L506.0400 #### [facility] [address] [place], [address] MAGNESIUM Collected: 11/18/2017 Status: F Source: [place] 5:37 PM [facility] REPOSITORY TYPE CODE TESTS RESULT OUT OF RANGE REFERENCE UNITS LAB L501.5200 1.6-2.6 mg/dL Normal MG 2.3 Performed By: #### L501.2300, L501.5200, L501.9520, L506.0400 #### [facility] [address] [place], [address] THYROID STIM HORMONE Collected: 11/18/2017 Status: F Source: [place] (TSH) 5:37 PM [facility] REPOSITORY TYPE CODE TESTS RESULT OUT OF RANGE REFERENCE UNITS LAB L501.9520 0.358-3.74 uIU/mL Normal TSH 0.68 Performed By: #### L501.2300, L501.5200, L501.9520, L506.0400 #### [facility] [address] [place], [address] T4 FREE DIRECT Collected: 11/18/2017 Status: F Source: [place] 5:37 PM [facility] REPOSITORY TYPE CODE TESTS RESULT OUT OF RANGE REFERENCE UNITS LAB L506.0400 0.76-1.46 ng/dL Normal T4 FREE 1.27 DIRECT Performed By: #### L501.2300, L501.5200, L501.9520, L506.0400 #### [facility] [address] [place], [address] HEMOGLOBIN A1C Collected: 11/18/2017 Status: F Source: [place] 5:37 PM [facility] REPOSITORY TYPE CODE TESTS RESULT OUT OF RANGE REFERENCE UNITS LAB L501.9985 4.2-6.3 % High HGB A1C 6.5 Performed By: #### L501.9985 #### [facility] [address] [place], [address] ABDOMEN/PELVIS WITHOUT Observed: 11/18/2017 Status: F Source: [place] CONT 4:44 PM [facility] REPOSITORY [facility] Imaging Services [address] [place] [address] Abdomen/Pelvis without Cont MR#: [id number] Acct: [id number] Name: DAMION MOYER Rep #: [id number] : 1945 F 72 From: Mason Beyer MD PCP: Jesus Fong MD Status: REG ER Study: Abdomen/Pelvis without Cont Date of Exam: 11/18/17 Exam# [id number] Ordering Dr: Jocelyn Muniz DO STUDY: CT [...] CC: Jesus Fong MD; Jocelyn Muniz DO Vp Product Marketing: Signed PROGRESS Observed: 11/18/2017 Status: COMPLETED Source: [place] 3:32 PM [facility] REPOSITORY O ID: [id number] Author: Naila Garcia Ct Service: (none) Author [...] WO IVCON Observed: 11/18/2017 Status: F Source: [place] 2:26 PM [facility] REPOSITORY * * *Final Report* * * DATE OF EXAM: Nov 18 2017 2:26PM [facility] 0541 - CT CHEST WO IVCON / [...] with pulmonary arterial hypertension. Trace pericardial effusion. Vp Product Marketing: PHONG Transcribe Date/Time: Nov 19 2017 9:06A Dictated by : NATACHA GUNTER MD This examination was interpreted and the report reviewed and electronically signed by: NATACHA GUNTER MD on Nov 19 2017 9:12AM EST [id number] Observed: 11/18/2017 Status: F Source: [place] URINE CULTURE 1:42 PM [facility] REPOSITORY Sp. Request/Comment: - Specimen received in preservative Culture Result - >=100,000 CFU/ml Enterococcus faecalis --> ABNORMAL ALERT Cephalosporins, clindamycin, and TMP-SMX are not effective for the treatment of enterococcal infections. --> ABNORMAL ALERT ORGANISM: Enterococcus faecalis METHOD: Minimum inhibitory concentration(Vitek) Antibiotic Interp DRU Status Ampicillin SUSCEPTIBLE <=2 F Nitrofurantoin SUSCEPTIBLE <=16 F Vancomycin SUSCEPTIBLE <=0.5 F Performed By: #### URCUL #### [facility] [address] [place], [place] [address] PROGRESS Observed: 11/18/2017 Status: COMPLETED Source: [place] 1:06 PM [facility] REPOSITORY HNO ID: [id number] Author: Angella Mcarthur Service: (none) Author Type: [...] lumps removed - COLONOSCOP W/ OR W/O [facility] SPEC 09/26/[address] [facility] [address] Collazo - COLONOSCOP W/ OR W/O [facility] SPEC 07/16/14 Colonoscopy [facility] out pt - COLONOSCOPY 3-11 Dr. Collazo - EGD tonsil tissue removed - EGD - EGD W/O OR W/BRUSH/WASH 08/04/09 gastric bx [facility] Dr. Collazo - EGD W/O OR W/BRUSH/WASH 01/19/14 EGD out pt [facility] - EXC TUMOR SOFT TISSUE ABDOMINAL WALL SUBQ 3+CM 12/03/2016 chronic fat necrosis - HEMORRHOIDECTOMY - MASTECTOMY, PARTIAL 12/03/2016 [facility] - wide excision 2nd to breast trauma [...] W SUB Q PORT >=5 10-3-13 left ALLERGIES Augmentin [Amoxicillin-Pot Clavulanate]; Bactrim [Sulfamethoxazole-Trimethoprim]; [...] DM - Controlled E11.9 Insulin: Yes Insulin [place], Disposable, (BD ULTRAFINE III MINI PEN) 31 gauge x /16 ndle Use One needle for each dose, [...] COMPOUNDED PRESCRIPTION Please provide portable oxygen concentrator. [facility]. umeclidinium-vilanterol (ANORO ELLIPTA) 62.5-25 mcg/actuation [...] DIP B/O - URINE CULTURE Angella Mcarthur APRN.SANDBLAST OR SHOTBLAST EQUIPMENT TENDER The patient indicates understanding of these issues and agrees with the plan. SHRUTHI Observed: 11/18/2017 Status: COMPLETED Source: [place] 1:00 PM [facility] REPOSITORY Office Visit (FAMPWS) DAMION MOYER ([id number]) 1945 F Date Time Provider Department 11/18/17 1:00 PM ANGELLA MCARTHUR ([place]) FAMPWS During your visit today, we recorded the [...] lumps removed - COLONOSCOP W/ OR W/O [facility] SPEC 09/26/[address] [facility] [address] Collazo - COLONOSCOP W/ OR W/O [facility] SPEC 07/16/14 Colonoscopy [facility] out pt - COLONOSCOPY 3- Dr. Collazo - EGD tonsil tissue removed - EGD - EGD W/O OR W/BRUSH/WASH 08/04/09 gastric bx [facility] Dr. Collazo - EGD W/O OR W/BRUSH/WASH 01/19/14 EGD out pt [facility] - EXC TUMOR SOFT TISSUE ABDOMINAL WALL SUBQ 3+CM 12/03/2016 chronic fat necrosis - HEMORRHOIDECTOMY - MASTECTOMY, PARTIAL 12/03/2016 [facility] - wide excision 2nd to breast trauma [...] W SUB Q PORT >=5 -- left ALLERGIES Augmentin [Amoxicillin-Pot Clavulanate]; Bactrim [Sulfamethoxazole-Trimethoprim]; [...] DM - Controlled E11.9 Insulin: Yes Insulin [place], Disposable, (BD ULTRAFINE III MINI PEN) 31 [...] COMPOUNDED PRESCRIPTION Please provide portable oxygen concentrator. [facility]. umeclidinium-vilanterol (ANORO ELLIPTA) 62.5-25 mcg/actuation [...] DIP B/O - URINE CULTURE Angella Mcarthur APRN.SANDBLAST OR SHOTBLAST EQUIPMENT TENDER The patient indicates understanding of these issues [...] Date Reviewed: 11/18/2017 Reviewed by: Andry Mahmood Post Framer - Fully Assessed Reason for Visit: Recheck [92] Cmt: diarrhea Primary Visit Diagnosis:Diarrhea, unspecified type [R19.7] Other Visit Diagnosis:Urinary frequency [R35.0] Order(s):C. DIFFICILE PCR [SQCDPCR] Order #: [id number] CRYPTOSPORIDIUM AND GIARDIA ANTIGENS BY EIA [SQOVAPSC] Order #: [id number] STOOL CULTURE/EIA [SQSTOCUL] Order #: [id number] FUTURE CELIAC SCREEN WITH REFLEX [SQCELSCR] Order #: [id number] FUTURE TSH BLD [SQTSH] Order #: [id number] FUTURE CBC [SQCBC] Order #: [id number] FUTURE COMP METABOLIC PANEL [SQCMP] Order #: [id number] FUTURE ENTERIC BACTERIAL PANEL BY PCR [SQSTLPCR] Order #: [id number] FUTURE UA DIP B/O [4523826] Order #: [id number] URINE CULTURE [SQURCUL] Order #: [id number] CONSULT TO GASTROENTEROLOGY [9010] Order #: [id number]: 1 Prescriptions as of 11/18/2017 Sig: FLUTICASONE [...] CARDIAC PERF Observed: 11/14/2017 Status: F Source: [place] STRESS/PHARM 4:25 PM [facility] REPOSITORY * * *Final Report* * * [...] 60 minutes later. See administered doses below. [facility] Date of service: 11/14/2017 1:03:16 PM Ordering [...] cavity size is unchanged with stress. Final Vp Product Marketing: JOSEPH Transcribe Date/Time: Nov 14 2017 1:03P Dictated by : RIGOBERTO ZULETA MD This examination was interpreted and the report reviewed and electronically signed by: RIGOBERTO ZULETA MD on Nov 14 2017 4:45PM EST [id number] Observed: 11/14/2017 Status: COMPLETED Source: [place] 3:26 PM [facility] REPOSITORY HNO ID: [id number] Author: Radha Martin Service: (none) Author Type: [...] POST EXAM PIV STATUS: Discontinued PROCEDURE TYPE: [place] Stress: 16.7mCi [id number] was administered IV for Rest Imaging at 13:55 by iman Denson . 44.7 mCi Tc99m- Myoview was administered IV for Stress Imaging at 15:10 by iman Denson. ADMINISTRATION TIME: PATIENT DISCHARGED TO: Ambulatory patient, left [place] department area. A Diagnostic radioactive procedure has taken place, with no further precautions necessary other than routine body substance precautions. More information regarding radiation safety can be found using this link: [email or web address] SIGNATURE: [employer] PATIENT NAME: Damion Moyer DATE: November 14, 2017 TIME: 3:27 PM PAGER/CONTACT #: PROGRESS Observed: 11/14/2017 Status: COMPLETED Source: [facility] 3:22 PM [facility] REPOSITORY HNO ID: [id number] Author: Basim Vyas ([facility]) Bob Service: (none) Author Type: Insurance Marketing Specialist Type: Progress Notes Filed: 11/14/2017 3:23 PM Note Text: Preliminary report complete; results under imaging tab. T. NHAN Johnson EKG1 Observed: 11/14/2017 Status: F Source: [facility] 3:04 PM [facility] REPOSITORY NAME : DAMION MOYER PID : [id number] : 1945 Gender : Female Race : ORD : Procedure Date : Nov 14 2017 15:04:04 Edit Date : Nov 19 2017 09:05:09 Diagnosis:NORMAL SINUS RHYTHM NORMAL ECG Confirmed by REPORT, SEE GXT ([id number]), offline editor PRECIOUS ENCINAS ([id number]) on 11/19/2017 9:04:43 AM Ventricular Rate : 73 BPM Atrial Rate : 73 BPM P-R Interval : 180 ms QRS Duration : 74 ms Q-T Interval : 398 ms QTC Calculation(Bezet) : 438 ms P Magazine : 74 degrees R Magazine : -12 degrees T Magazine : 57 degrees Test Reason : Location : 184 : [facility] Overread By : REPORT,SEE GXT Edited By : PRECIOUS ENCINAS Referred By : , Acquired by : SHRUTHI Observed: 11/14/2017 Status: COMPLETED Source: [facility] 2:30 PM [facility] REPOSITORY Office Visit (CAWSTR) DAMION MOYER ([id number]) 1945 F Date Time Provider Department 9/6/18 2:[address] CAW[facility] During your visit today, we recorded the following information about you: NHAN Ma 11/14/2017 3:23 PM Signed Preliminary report complete; results under imaging tab. NHAN Ma Referring Provider: GAMALIEL SCOTT [[id number]] Allergies As of Date: 11/14/2017 Noted Allergy [...] on exertion [R06.09] Order(s):NM CARDIAC PERF STRESS/PHARM [1150017] Order #: [id number] Prescriptions as of 11/14/2017 Sig: FLUTICASONE FUROATE [...] W/O EXAC [J44.9] INVALID FOR*01/31/2015 [facility] SITE XTRNOD/SOLID ORG [C85.89] INVALID FOR*02/24/2007 NODULAR [...] 11/14/17 CNNURSE Observed: 11/14/2017 Status: COMPLETED Source: [facility] 2:30 PM [facility] REPOSITORY Nurse Visit (CAWSTR) DAMION MOYER ([id number]) 1945 F Date Time Provider Department 11/14/17 2:30 PM NURSE CARD ADMIN [facility] CAWSTR During your visit today, we recorded the following information about you: Myla Rodrigues RN 11/14/2017 3:20 PM Signed lexiscan 0.4mg/5ml given over 10 second IV push. Lot number [id number], exp date 12-18-2020. Patient tolerated injection well. Myla Rodrigues RN Referring Provider: GAMALIEL SCOTT [[id number]] Allergies As of Date: 11/14/2017 Noted Allergy [...] LEFT 3 Observed: 11/06/2017 Status: F Source: [employer] 5:38 PM SYSTEM ([place]) REPOSITORY EXAM: XR KNEE LEFT 3 VIEWS [...] air. PROGRESS Observed: 11/01/2017 Status: COMPLETED Source: [facility] 2:15 PM [facility] REPOSITORY HNO ID: [id number] Author: Sarkis Abraham Service: (none) Author Type: Physician Type: Progress Notes Filed: 11/12/2017 12:33 PM Note Text: [facility], 11/01/17: ? HPI: The patient is here [...] ? Wears continuous oxygen 4 L. DME: [employer]. Consistently wearing BiPAP with all sleep. Naps daily. Reports increased tiredness and daytime fatigue. Sleep study ordered, pending appointment with sleep specialist in [place]. ? Recent EGD and colonoscopy. Per patient, [...] titration sleep study was done 06/25/2012 at [facility]. 2018 PAP titration ordered, completed recently at [facility]. - Request report and advise patient accordingly. [...] acceptance of my answers. Sarkis Abraham MD, [facility] [address] [address] P: [phone] F: [phone] [email or web address] CNOV Observed: 11/01/2017 Status: COMPLETED Source: [facility] 2:00 PM [facility] REPOSITORY Office Visit (PULMWS) JOÃODAMION Alejandro ([id number]) 1945 F Date Time Provider Department 11/01/17 2:00 PM SARKIS ABRAHAM During your visit today, we recorded the following information about you: Blood pressure Weight Height 128/82 106.6 kg 1.575 m Kelley Craven LPN 11/01/2017 3:03 PM Signed Intake information documented in the prior visit with Meera Paniagua CRT today. Kelley Craven LPN 11/01/2017 2:35 PM Attested Attestation signed by Sarkis Abraham at 11/01/2017 2:44 PM Sarkis Abraham MD, [facility] [address] [place] [address] P: [phone] F: [phone] [email or web address] ROS: General: Generally feels fatigued, shortness of breath worse on exertion/hot weather. Appetite fair. Eyes, Ears, nose, throat: denies post nasal drip. denies rhinorrhea. denies purulent nasal discharge. denies epistaxis. denies hoarseness. Vision stable. Cardiac: denies angina, notes edema, denies orthopnea. GI: denies heartburn. notes dysphagia-previously evaluated and treated by ST. notes diarrhea/bloating Uro/TATTOO ARTIST: denies dysuria. denies hesitancy. denies nocturia. Menses: post menopausal Musculoskeletal: notes chronic back and joint pain. Neuro: denies headache, denies focal weakness. denies tremor. Skin: denies rash. Otherwise negative. Sarkis Abraham MD 11/12/2017 12:33 PM Signed [facility], 11/01/17: ? HPI: The patient is here [...] ? Wears continuous oxygen 4 L. DME: [employer]. Consistently wearing BiPAP with all sleep. Naps daily. Reports increased tiredness and daytime fatigue. Sleep study ordered, pending appointment with sleep specialist in [place]. ? Recent EGD and colonoscopy. Per patient, [...] titration sleep study was done 06/25/2012 at [facility]. 2018 PAP titration ordered, completed recently at [facility]. - Request report and advise patient accordingly. [...] acceptance of my answers. Sarkis Abraham MD, [facility] [place] [facility] [address] [place] [address] P: [phone] F: [phone] [email or web address] Sarkis Abraham MD 11/01/2017 2:53 PM [...] titration sleep study was done 06/25/2012 at [facility]. 2018 PAP titration ordered, completed recently at [facility]. - Request report and advise patient accordingly. [...] November,?2018?to document 3?years' stability. Sarkis Abraham MD, [facility] [place] [facility] [address] [place] [address] P: [phone] F: [phone] [email or web address] Referring Provider: LUCY VINSON [[id number]] Allergies As of Date: 11/01/2017 Noted Allergy [...] Obstructive sleep apnea [G47.33] Pulmonary hypertension, unspecified ([facility]) [I27.20] Prescriptions as of 11/01/2017 Sig: GUAIFENESIN [...] BRONCHITIS W/O EXAC [J44.9] INVALID FOR*01/31/[address] [facility] SITE XTRNOD/SOLID ORG [C85.89] INVALID FOR*02/24/2007 NODULAR [...] titration sleep study was done 06/25/2012 at [facility]. 2018 PAP titration ordered, completed recently at [facility]. - Request report and advise patient accordingly. [...] November,?2018?to document 3?years' stability. Sarkis Abraham MD, [facility] [place] [facility] [address] [place] [address] P: [phone] F: [phone] [email or web address] Visit Notes: >> Kelley Craven LPN [...] heartburn. notes dysphagia-previously evaluated and treated by . notes diarrhea/bloating Uro/TATTOO ARTIST: denies dysuria. denies hesitancy. denies nocturia. Menses: [...] and Disposition History Recorded Encounter Status:Closed by SARKIS ABRAHAM MD on 11/12/17 PROGRESS Observed: 10/28/2017 Status: COMPLETED Source: [facility] 2:03 PM [facility] REPOSITORY HNO ID: [id number] Author: Tia Sena Service: (none) Author Type: [...] has been evaluated by Dr. Khan and [facility] [place]. Patient initially was placed on observation. She [...] that she is thinking about moving to [place]. She reports that her daughter is in a jail in [place]. She is getting around in a mechanical [...] Ref Range: 1.00 - 4.00 k/uL 1.58 [place]% Latest Units: % 5.4 Abs [place] Latest Ref Range: <0.87 k/uL 0.57 Eosin% Latest Units: % 2.0 Abs Eosin Latest Ref Range: <0.46 k/uL 0.21 Baso% Latest Units: % 0.6 Abs Baso Latest Ref Range: <0.11 k/uL 0.06 Color/Appearance Latest Units: comment: yellow Specific [place], Ur Latest Ref Range: 1.005 - 1.030 [...] MD CNOVSP Observed: 10/28/2017 Status: COMPLETED Source: [facility] 1:30 PM [facility] REPOSITORY Visit (SP) Office (HEMAMS) DAMION MOYER ([id number]) 1945 F Date Time Provider Department 10/28/17 [...] has been evaluated by Dr. Khan and [facility]. Patient initially was placed on observation. She [...] that she is thinking about moving to [place]. She reports that her daughter is in a jail in [place]. She is getting around in a mechanical [...] Ref Range: 1.00 - 4.00 k/uL 1.58 [place]% Latest Units: % 5.4 Abs [place] Latest Ref Range: <0.87 k/uL 0.57 Eosin% Latest Units: % 2.0 Abs Eosin Latest Ref Range: <0.46 k/uL 0.21 Baso% Latest Units: % 0.6 Abs Baso Latest Ref Range: <0.11 k/uL 0.06 Color/Appearance Latest Units: comment: yellow Specific [place], Ur Latest Ref Range: 1.005 - 1.030 [...] Tia Sena MD Referring Provider: JESUS FONG [[id number]] Allergies As of Date: 10/28/2017 Noted Allergy [...] without hemorrhage or perforation, unspecified chronicity [K25.9] Order(s):[facility] DIAGNOSTIC [facility] [[id number]] Order #: [id number] FUTURE CBC + DIFF (FOR REMOTE [facility] USE) [SQRCBCDF] Order #: [id number] FUTURE RETIC COUNT [SQRETIC] Order #: [id number] FUTURE COMP METABOLIC PANEL [SQCMP] Order #: [id number] FUTURE IRON + TIBC [SQIRON] Order #: [id number] FUTURE FERRITIN BLD [SQFERR] Order #: [id number] FUTURE Prescriptions as of 10/28/2017 Sig: GUAIFENESIN [...] 10/28/17 CNNURSE Observed: 10/24/2017 Status: COMPLETED Source: [facility] 3:15 PM [facility] REPOSITORY Nurse Visit (CAWSTR) DAMION MOYER ([id number]) 1945 F Date Time Provider Department 10/24/17 3:15 PM NURSE CARD ADMIN [facility] WSTR CAWSTR During your visit today, we recorded the following information about you: Caesar Vargas MA 10/25/2017 11:57 AM Signed Ekg completed and gave to Dr Scott for review. Caesar Vargas MA Referring Provider: GAMALIEL SCOTT [[id number]] Allergies As of Date: 10/24/2017 Noted Allergy [...] Order(s):ECG COMPLETE W INTERPRETATION [ECG01] Order #: [id number] Prescriptions as of 10/24/2017 Sig: VICTOZA 2-LIZET [...] More... Visit Notes: >> Caesar Vargas MA [facility] Oct 24, 2017 11:57 AM Status: Signed Ekg completed and gave to Dr Scott for review. Caesar Vargas MA Encounter Status:Closed by CAESAR VARGAS MA on 10/25/17 EKG1 Observed: 10/24/2017 Status: F Source: [facility] 2:23 PM [facility] REPOSITORY NAME : DAMION MOYER PID : [id number] : 1945 Gender : Female Race : [...] ms QTC Calculation(Bezet) : 425 ms P Magazine : 67 degrees R Magazine : -22 degrees T Magazine : 49 degrees Test Reason : Location : 136 : [facility] Overread By : GAMALIEL SCOTT MD Edited By : GAMALIEL SCOTT MD Referred By : JESUS FONG Acquired by : EDWIN, PROGRESS Observed: 10/24/2017 Status: COMPLETED Source: [facility] 2:17 PM [facility] REPOSITORY HNO ID: [id number] Author: Gamaliel Scott Service: (none) Author Type: Physician Type: Progress Notes Filed: 10/25/2017 8:33 AM Note Text: PERTINENT CARDIAC HISTORY Pulmonary hypertension Aortic stenosis HTN HL DM Obesity SCOTTY - BiPAP ADHERENCE TO GUIDELINES LIZ-I or ARB for HF with prior LVEF<40 (NQF 0081) - N/A ASA or Plavix for ASHD (NQF 0067) - N/A Beta jensen for ASHD with prior TN or prior LVEF<40 (NQF 0070) - N/A [...] pressures, although the latest study done in [facility] 2 years ago estimated minimal elevation. [...] pnij INJECT 1.2MG SUBCUTANEOUSLY ONCE DAILY Insulin [place], Disposable, (BD ULTRAFINE III MINI PEN) 31 [...] . Pt needs new supplies. Blood-Glucose Meter (BuyouTOUCH ULTRA2) monitoring kit 1 Each as needed. One Touch Meter Kit Diagnosis: Type 2 DM - Controlled E11.9 azithromycin (ZITHROMAX) 250 mg tablet TAKE 1 TABLET BY MOUTH ONCE DAILY. COMPOUNDED PRESCRIPTION PAP titration sleep study. COMPOUNDED PRESCRIPTION Please provide portable oxygen concentrator. [facility]. albuterol HFA (VENTOLIN HFA) 90 [...] lumps removed - COLONOSCOP W/ OR W/O [facility] SPEC 09/26/06 Colonoscopy [facility] [address]. Collazo - COLONOSCOP W/ OR W/O [facility] SPEC 07/16/14 Colonoscopy [facility] out pt - COLONOSCOPY 3-11 Dr. Collazo - EGD tonsil tissue removed - EGD - EGD W/O OR W/BRUSH/WASH 08/04/09 gastric bx [facility] Dr. Collazo - EGD W/O OR W/BRUSH/WASH 01/19/14 EGD out pt [facility] - EXC TUMOR SOFT TISSUE ABDOMINAL WALL SUBQ 3+CM 12/03/2016 chronic fat necrosis - HEMORRHOIDECTOMY - MASTECTOMY, PARTIAL 12/03/2016 [facility] - wide excision 2nd to breast trauma [...] MD CNOV Observed: 10/24/2017 Status: COMPLETED Source: [facility] 1:45 PM [facility] REPOSITORY Office Visit (CAWSTR) DAMION MOYER ([id number]) 1945 F Date Time Provider Department 10/24/17 1:45 PM GAMALIEL SCOTT CAWSTR During your visit today, we recorded [...] N/A Beta jensen for ASHD with prior TN or prior LVEF<40 (NQF 0070) - N/A Beta jensen for HF with prior LVEF<40 (NQF 0083) - N/A LIZ-I or ARB for ASHD with DM or prior LVEF<40 (NQF 0066) - met Statin therapy for ASHD or FHL or DM - met BMI documented and plan if >25 (NQ 0421) - lifestyle recommendation form Tobacco use screening and referral (NQ 0028) - lifestyle recommendation form Recommendation for [...] pressures, although the latest study done in [facility] 2 years ago estimated minimal elevation. [...] pnij INJECT 1.2MG SUBCUTANEOUSLY ONCE DAILY Insulin [place], Disposable, (BD ULTRAFINE III MINI PEN) 31 [...] times daily as needed. blood sugar diagnostic (Xetawave ULTRA TEST) test strip Test blood sugar(s) [...] . Pt needs new supplies. Blood-Glucose Meter (ONETOUCH ULTRA2) monitoring kit 1 Each as needed. One Touch Meter Kit Diagnosis: Type 2 DM - Controlled E11.9 azithromycin (ZITHROMAX) 250 mg tablet TAKE 1 TABLET BY MOUTH ONCE DAILY. COMPOUNDED PRESCRIPTION PAP titration sleep study. COMPOUNDED PRESCRIPTION Please provide portable oxygen concentrator. [facility]. albuterol HFA (VENTOLIN HFA) 90 [...] lumps removed - COLONOSCOP W/ OR W/O [facility] SPEC 09/26/[address] [facility] [address] Collazo - COLONOSCOP W/ OR W/O [facility] SPEC 07/16/14 Colonoscopy [facility] out pt - COLONOSCOPY 3-11 Dr. Collazo - EGD tonsil tissue removed - EGD - EGD W/O OR W/BRUSH/WASH 08/04/09 gastric bx [facility] Dr. Collazo - EGD W/O OR W/BRUSH/WASH 01/19/14 EGD out pt [facility] - EXC TUMOR SOFT TISSUE ABDOMINAL WALL SUBQ 3+CM 12/03/2016 chronic fat necrosis - HEMORRHOIDECTOMY - MASTECTOMY, PARTIAL 12/03/2016 [facility] - wide excision 2nd to breast trauma [...] the following areas and commit to making fci changes. EAT A WHOLE FOOD, PLANT BASED [...] in your area. Referring Provider: GAMALIEL SCOTT [[id number]] Allergies As of Date: 10/24/2017 Noted Allergy [...] CHF (congestive heart failure) (HCC) [I50.32] Order(s):ECHO [[id number]] Order #: [id number]: 1 FUTURE ECG COMPLETE W INTERPRETATION [ECG01] Order #: [id number] FUTURE Prescriptions as of 10/24/2017 Sig: VICTOZA [...] the following areas and commit to making termite helper changes. EAT A WHOLE FOOD, PLANT BASED [...] REMOTE CBCDIF Collected: 10/17/2017 Status: F Source: [facility] (FOR [facility] USE ONLY) 2:12 PM [facility] REPOSITORY TYPE CODE TESTS RESULT OUT [...] k/uL Abs Lymph 1.58 LAB AMONO % [place]% 5.4 LAB AAMONO <0.87 k/uL Abs [place] 0.57 LAB AEOS % Eosin% 2.0 LAB AAEOS <0.46 k/uL Abs Eosin 0.21 LAB ABASO % Baso% 0.6 LAB AABASO <0.11 k/uL Abs Baso 0.06 RETICULOCYTE Collected: 10/17/2017 Status: F Source: [facility] 2:12 PM [facility] REPOSITORY TYPE CODE TESTS RESULT OUT OF REFERENCE UNITS RANGE LAB RETC 0.4-2.0 % Retic% 1.7 LAB ABRET 0.0180-0.1000 M/uL Abs Retic 0.085 Performed By: #### RETIC, IRON, FERR, CMP #### [facility] [address] [place], [place] [address] IRON AND TIBC Collected: 10/17/2017 Status: F Source: [place] [facility] 2:12 PM [facility] REPOSITORY TYPE CODE TESTS RESULT OUT OF REFERENCE UNITS RANGE LAB IRN 41-186 ug/dL Low Iron 37 LAB TIBC 232-386 ug/dL TIBC 273 LAB SAT 15-57 % Low Transferrin Saturatn 14 Performed By: #### RETIC, IRON, FERR, CMP #### [facility] [address] [place], [place] [address] FERRITIN Collected: 10/17/2017 Status: F Source: [place] 2:12 PM [facility] REPOSITORY TYPE CODE TESTS RESULT OUT OF REFERENCE UNITS RANGE LAB FERR 14.7-205.1 ng/mL High Ferritin 404.1 Performed By: #### RETIC, IRON, FERR, CMP #### [facility] [address] [place] [address] COMP METABOLIC PANEL Collected: 10/17/2017 Status: F Source: [facility] 2:12 PM [facility] REPOSITORY TYPE CODE TESTS RESULT OUT OF REFERENCE UNITS RANGE LAB TP 6.3-8.0 g/dL Protein, Total 6.8 LAB ALB 3.9-4.9 g/dL Albumin 3.9 LAB CA 8.5-10.2 mg/dL Calcium, Total 8.9 LAB TBIL 0.2-1.3 mg/dL Bilirubin, Total 0.5 LAB ALKP 32-117 U/L Alkaline High Phosphatase 138 LAB AST 13-35 U/L AST 27 LAB GLU 74-99 mg/dL Glucose High 144 Result Comment: The [place] Diabetes Association (ADA) provides guidance for cutoff [...] Standards of Medical Care in Diabetes 2016, [place] Diabetes Association. Diabetes Care. 2016.39(Suppl 1). LAB [...] actual GFR. Performed By: #### RETIC, IRON, FERR, CMP #### [facility] [address] [place], [place] [address] CNOVSP Observed: 10/17/2017 Status: COMPLETED Source: [facility] 2:00 PM [facility] REPOSITORY Visit (SP) Office (LANDY) DAMION MOYER ([id number]) 1945 F Date Time Provider Department 10/17/17 2:00 PM NURSE GLYNN BILL During your visit today, we recorded the following information about you: Referring Provider: TIA SENA [[id number]] Allergies As of Date: 10/17/2017 Noted Allergy [...] Date Reviewed: 10/11/2017 Reviewed by: Stacie Dorantes Post Framer - Fully Assessed Reason for Visit: Blood [...] 10/17/17 PROGRESS Observed: 10/16/2017 Status: COMPLETED Source: [facility] 1:45 PM [facility] REPOSITORY HNO ID: [id number] Author: Thu Patterson Cma Service: (none) Author Type: (none) Type: Progress Notes Filed: 10/16/2017 1:45 PM Note Text: Letters mailed to patient. PROGRESS Observed: 10/16/2017 Status: COMPLETED Source: [facility] 1:44 PM [facility] REPOSITORY HNO ID: [id number] Author: Thu Patterson Cma Service: (none) Author [...] 11/09/2017 CNPTOUTREACH Observed: 10/16/2017 Status: COMPLETED Source: [facility] 12:00 AM [facility] REPOSITORY Patient Outreach (INTMWS) DAMION MOYER ([id number]) 1945 F Date Time Provider Department 10/16/17 THU PATTERSON) INTMWS During your visit today, we recorded [...] 11/05/2017 INFLUENZA(1) due on 11/09/2017 Thu Patterson Cma 10/16/2017 1:45 PM Signed Letters mailed to [...] Date Reviewed: 10/11/2017 Reviewed by: Stacie Dorantes Post Framer - Fully Assessed Reason for Visit: PHMA/Care Gap Outreach [[id number]] Problem List As Of Date 10/16/2017 Noted [...] FOR* Obstructive sleep apnea [G47.33] More... Letter [facility] Department of Internal Medicine Jesus Mcneal MD [address] [place], [place] [address] Dear Damion Moyer Your health care is [...] blindness Thank you, Jesus Mcneal MD Letter [facility] [address] [id number] Office: [phone] Jesus Mcneal MD REQUEST FOR EYE EXAM FINDINGS March 30, 2016 Dear eye nurse care manager, Thank you for coordinating eye care for [...] is to return: Encounter Status:Closed by YESENIA THU KIRK on 10/16/17 EMERGENCY DEPARTMENT Observed: 10/12/2017 Status: F Source: [place] SUMMARY 12:33 AM [facility] REPOSITORY [facility] Medical Records Department [address] [place] [address] Emergency Department Summary 10/11/17 1609 MR#: [id number] Acct: [id number] Name: DAMION MOYER Rep #: [id number] : 1945 72 From: Elmer Bledsoe MD [...] Diarrheal illness This note was generated with Dragon dictation software. It may contain incorrect words, [...] your Primary Care Provider. Call [facility] ([phone]) or report to the closest Emergency Room. Call 911 if necessary. 10/12/1732 <Electronically signed by Elmer Bledsoe MD> Date Elmer Bledsoe MD Cosigner Signature (If Indicated): Date CC: Jesus Fong MD DISCHARGE INSTRUCTION Observed: 10/12/2017 Status: F Source: [place] 12:33 AM [facility] REPOSITORY [facility] Medical Records Department [address] [place] [address] Discharge Instruction 10/11/171936 MR#: [id number] Acct: [id number] Name: DAMION MOYER Rep #: [id number] : 1945 72 From: Elmer Bledsoe MD PCP: Jesus Fong MD Status: DEP ER ED Disposition - Plan for ED Patient: Chief Complaint: Abd Pain Instructions: Treating Diarrhea Referrals: Jesus Fong MD [Primary Care Provider] - What to do if you have Problems For any increased pain, shortness of breath, bleeding, nausea or vomiting, chest pain, or any unexpected problems, contact your Primary Care Provider. Call [facility] ([phone]) or report to the closest Emergency Room. Call 911 if necessary. 10/12/1732 <Electronically signed by Elmer Bledsoe MD> Date Elmer Bledsoe MD Cosigner Signature (If Indicated): Date CC: Jesus Fong MD URINALYSIS, COMPLETE Collected: 10/11/2017 Status: F Source: [place] 5:48 PM [facility] REPOSITORY Order Comment: Order Date: 10/11/17 How was Urine Obtained? ASSEMBLY LINE LEADER TO SPECIFY TYPE CODE TESTS RESULT OUT [...] MUCUS, URINE Performed By: #### L400.0001 #### [facility] [address] [place], [address] COMPREHENSIVE METABOLIC Collected: 10/11/2017 Status: F Source: [place] MORALES 4:15 PM [facility] REPOSITORY TYPE CODE TESTS RESULT [...] 5 Performed By: #### L500.4050, L501.2450 #### [facility] [address] [place], [address] LIPASE Collected: 10/11/2017 Status: F Source: [place] 4:15 PM [facility] REPOSITORY TYPE CODE TESTS RESULT OUT OF RANGE REFERENCE UNITS LAB L501.2450 73-393 U/L Normal LIPASE 149 Performed By: #### L500.4050, L501.2450 #### [facility] [facility] [address] [place], [place], [id number] CBC W/DIFF, AUTOMATED Collected: 10/11/2017 Status: F Source: [place] 4:15 PM [facility] REPOSITORY TYPE CODE TESTS RESULT [...] Lymph 1.73 Performed By: #### L100.0100 #### [facility] [address] [place], [address] ABDOMEN/PELVIS WITHOUT Observed: 10/11/2017 Status: F Source: [place] CONT 3:49 PM [facility] REPOSITORY [facility] Imaging Services [address] [address] Abdomen/Pelvis without Cont MR#: [id number] Acct: [id number] Name: DAMION MOYER Rep #: [id number] : 1945 F 72 From: Nghia Heard MD PCP: Jesus Fong MD Status: REG ER Study: Abdomen/Pelvis without Cont Date of Exam: 10/11/17 Exam# [id number] Ordering Dr: Elmer Bledsoe MD STUDY: CT [...] CC: Elmer Bledsoe MD; Jesus Fong MD Vp Product Marketing: Signed PROGRESS Observed: 10/11/2017 Status: COMPLETED Source: [place] 2:44 PM [facility] REPOSITORY O ID: [id number] Author: Alize (Garett) Older Service: (none) Author [...] lumps removed - COLONOSCOP W/ OR W/O [facility] SPEC 09/26/06 Colonoscopy [facility] Dr. Collazo - COLONOSCOP W/ OR W/O [facility] SPEC 07/16/14 Colonoscopy [facility] out pt - COLONOSCOPY 3-11 Dr. Collazo - EGD tonsil tissue removed - EGD - EGD W/O OR W/BRUSH/WASH 08/04/09 gastric bx [facility] Dr. Collazo - EGD W/O OR W/BRUSH/WASH 01/19/14 EGD out pt [facility] - EXC TUMOR SOFT TISSUE ABDOMINAL WALL SUBQ 3+CM 12/03/2016 chronic fat necrosis - HEMORRHOIDECTOMY - MASTECTOMY, PARTIAL 12/03/2016 [facility] - wide excision 2nd to breast trauma [...] times daily as needed. blood sugar diagnostic (BuyouTOUCH ULTRA TEST) test strip Test blood sugar(s) 4 times daily and as needed for symptoms of high or low sugars. Dx: Type 2 DM - Controlled E11.9 Insulin: Yes Insulin [place], Disposable, (BD ULTRAFINE III MINI PEN) 31 [...] BY MOUTH THREE TIMES DAILY. Blood-Glucose Meter (Xetawave ULTRA2) monitoring kit 1 Each as needed. One Touch Meter Kit Diagnosis: Type 2 DM - Controlled E11.9 azithromycin (ZITHROMAX) 250 mg tablet TAKE 1 TABLET BY MOUTH ONCE DAILY. COMPOUNDED PRESCRIPTION PAP titration sleep study. COMPOUNDED PRESCRIPTION Please provide portable oxygen concentrator. [facility]. umeclidinium-vilanterol (ANORO ELLIPTA) 62.5-25 mcg/actuation [...] in the office. She will go to [facility] ER right now. She is stable to drive herself. 2. Urinary incontinence, unspecified type - ICD9: 788.30, ICD10: R32 As above - UA DIP B/O Prescription instructions reviewed with patient as applicable. Potential red flag symptoms discussed with the patient. Reviewed appropriate action plan to take if red flag symptoms occur. Patient agreeable to treatment plan. Alize Siddiqui APRN.GARETT CNOV Observed: 10/11/2017 Status: COMPLETED Source: [place] 2:40 PM [facility] REPOSITORY Office Visit (INTMWS) JOÃOLAVONNE ([id number]) 1945 F Date Time Provider Department 10/11/17 2:40 PM ALIZE SIDDIQUI (GARETT) INTMWS During your visit today, we recorded the following information about you: Temperature Pulse Respiration Blood pressure 97 degrees 86/minute 20/minute 140/100 Alize Older, MORELIA 10/14/2017 7:54 AM Signed CC: Patient presents [...] lumps removed - COLONOSCOP W/ OR W/O [facility] SPEC 09/26/[address] [facility] [address] Collazo - COLONOSCOP W/ OR W/O [facility] SPEC 07/16/14 Colonoscopy [facility] out pt - COLONOSCOPY 3- Dr. Collazo - EGD tonsil tissue removed - EGD - EGD W/O OR W/BRUSH/WASH 08/04/09 gastric bx [facility] Dr. Collazo - EGD W/O OR W/BRUSH/WASH 01/19/14 EGD out pt [facility] - EXC TUMOR SOFT TISSUE ABDOMINAL WALL SUBQ 3+CM 12/03/2016 chronic fat necrosis - HEMORRHOIDECTOMY - MASTECTOMY, PARTIAL 12/03/2016 [facility] - wide excision 2nd to breast trauma [...] DM - Controlled E11.9 Insulin: Yes Insulin [place], Disposable, (BD ULTRAFINE III MINI PEN) 31 [...] COMPOUNDED PRESCRIPTION Please provide portable oxygen concentrator. [facility]. umeclidinium-vilanterol (ANORO ELLIPTA) 62.5-25 mcg/actuation [...] in the office. She will go to [facility] ER right now. She is stable to drive herself. 2. Urinary incontinence, unspecified type - ICD9: 788.30, ICD10: R32 As above - UA DIP B/O Prescription instructions reviewed with patient as applicable. Potential red flag symptoms discussed with the patient. Reviewed appropriate action plan to take if red flag symptoms occur. Patient agreeable to treatment plan. Alize Siddiqui APRN.SANDBLAST OR SHOTBLAST EQUIPMENT TENDER Referring Provider: SELF [[id number]] Allergies As of [...] Date Reviewed: 10/11/2017 Reviewed by: Stacie Dorantes Post Framer - Fully Assessed Reason for Visit: diarrhea, possible UTI, nerves shot, leg pain [Other] Primary Visit Diagnosis:Left lower quadrant pain [R10.32] Other Visit Diagnosis:Urinary incontinence, unspecified type [R32] Order(s):UA DIP B/O [[id number]] Order #: [id number] Prescriptions as of 10/11/2017 Sig: CYCLOBENZAPRINE 5 [...] Status:Closed by ALIZE SIDDIQUI CNP on 10/14/17 CNPN Observed: 09/26/2017 Status: COMPLETED Source: [place] 12:00 AM [facility] REPOSITORY Telephone (INTMWS) DAMION MOYER ([id number]) 1945 F Date Time Provider Department 09/26/17 JESUS FONG During your visit today, we recorded the following information about you: Maribel Chery LPN 09/26/2017 3:34 PM Signed Received a call from Caesar with [employer] [phone] regarding patient. They sent a fax over [...] list. Once received please review. Maribel Hinson APRN.STAFF PHARMACIST 09/26/2017 5:25 PM Signed Watch for the refill fax below and clarify what is needed. If does not arrive, lets check with patient. Maribel Haynes RN 10/03/2017 1:29 PM Signed Any fax received on this? Please review and advise. RONAN López APRN.STAFF PHARMACIST 10/03/2017 5:09 PM Signed I don't think it has come our way. Maribel Chery LPN 10/08/2017 2:23 PM Signed I called [facility] back and they were not able to find any prescription for Novalog. I called the patient and she is using up the Novalog she has and then will get the Humalog that was sent to her pharmacy in August. Novalog is not formulary for her. Maribel Hinson APRN.STAFF PHARMACIST 10/08/2017 3:14 PM Signed Is she covered for insulin or does she still need something? Maribel Chery LPN 10/08/2017 4:55 PM Signed She is covered. Maribel Karen Miri ELECTRICAL INTERN Allergies As of Date: 09/26/2017 Noted Allergy [...] apnea [G47.33] More... Encounter Status:Closed by ANDRY BNENETT MA on 10/08/17 PROGRESS Observed: 09/09/2017 Status: COMPLETED Source: [place] 1:11 PM [facility] REPOSITORY HNO ID: [id number] Author: Lucy Vinson Service: (none) Author Type: Physician Director Employee Communications Type: Progress Notes Filed: 09/09/2017 1:35 PM Note Text: [facility], 09/08/17: HPI: The patient is here for [...] ordered, pending appointment with sleep specialist in [place]. Recent EGD and colonoscopy. Per patient, I [...] swallowing better. No longer seeing speech therapy. Uro/TATTOO ARTIST: No dysuria, hesitancy, nocturia. Musculoskeletal: Chronic pain. [...] excess calories. 1. Starting aqua therapy at [facility]. ?? SCOTTY treated with BiPAP. The last PAP titration sleep study was done 06/25/2012 at [facility]. The apnea-hypopnea index (AHI)?on BiPAP 24/12 was 0-1, similar to the current readout on the patient's PAP machine. 1. Patient scheduled with a sleep specialist in [place] in order to have a titration study [...] acceptance of my answers. Lucy Vinson PA-C [facility] [address] [place] [address] CNOV Observed: 09/09/2017 Status: COMPLETED Source: [place] 1:00 PM [facility] REPOSITORY Office Visit (PULMWS) DAMION MOYER ([id number]) 1945 F Date Time Provider Department 09/09/17 1:00 PM LUCY VINSON During your visit today, we recorded the following information about you: Pulse Respiration Blood pressure 89/minute 20/minute 126/84 Lucy Vinson PA-C 09/09/2017 1:35 PM Signed [facility], 09/08/17: HPI: The patient is here for [...] ordered, pending appointment with sleep specialist in [place]. Recent EGD and colonoscopy. Per patient, I [...] swallowing better. No longer seeing speech therapy. Uro/TATTOO ARTIST: No dysuria, hesitancy, nocturia. Musculoskeletal: Chronic pain. [...] excess calories. 1. Starting aqua therapy at [facility]. ?? SCOTTY treated with BiPAP. The last PAP titration sleep study was done 06/25/2012 at [facility]. The apnea-hypopnea index (AHI)?on BiPAP 24/12 was 0-1, similar to the current readout on the patient's PAP machine. 1. Patient scheduled with a sleep specialist in [place] in order to have a titration study [...] acceptance of my answers. Lucy Vinson PA-C [facility] [address] [place] [address] Lucy Vinson PA-C 09/09/2017 1:34 [...] excess calories. 1. Starting aqua therapy at [facility]. ?? SCOTTY treated with BiPAP. The last PAP titration sleep study was done 06/25/2012 at [facility]. The apnea-hypopnea index (AHI)?on BiPAP 24/12 was 0-1, similar to the current readout on the patient's PAP machine. 1. Patient scheduled with a sleep specialist in [place] in order to have a titration study [...] too many appointments. Referring Provider: SARKIS ABRAHAM [[id number]] Allergies As of Date: 09/09/2017 Noted Allergy [...] Visit Diagnosis:Moderate COPD (chronic obstructive pulmonary disease) ([facility]) [J44.9] Other Visit Diagnoses:Pulmonary hypertension ([facility]) [I27.20] Morbid obesity ([facility]) [E66.01] SCOTTY treated with BiPAP [G47.33] Lung [...] excess calories. 1. Starting aqua therapy at [facility]. ?? SCOTTY treated with BiPAP. The last PAP titration sleep study was done 06/25/2012 at [facility]. The apnea-hypopnea index (AHI)?on BiPAP 24/12 was 0-1, similar to the current readout on the patient's PAP machine. 1. Patient scheduled with a sleep specialist in [place] in order to have a titration study [...] 09/09/17 PROGRESS Observed: 09/04/2017 Status: COMPLETED Source: [place] 12:46 PM [facility] REPOSITORY O ID: [id number] Author: Jesus Fong Service: (none) Author Type: [...] pain issue. Trying to move back to [place]. Needs handicap accessible and a kitchen. PAST [...] COMPOUNDED PRESCRIPTION Please provide portable oxygen concentrator. [facility]. umeclidinium-vilanterol (ANORO ELLIPTA) 62.5-25 mcg/actuation [...] solution traMADol (ULTRAM) 50 mg tablet Insulin [place], Disposable, (BD ULTRAFINE III MINI PEN) 31 [...] diagnostic (ONETOUCH ULTRA TEST) test strip Insulin [place], Disposable, (BD ULTRAFINE III MINI PEN) 31 [...] counseling and/or coordinating care for the patient. Jqdj-mg-drbx time was at least 30 minutes. Jesus Fong MD CNOV Observed: 09/04/2017 Status: COMPLETED Source: [place] 11:20 AM [facility] REPOSITORY Office Visit (INTMWS) DAMION MOYER ([id number]) 1945 F Date Time Provider Department 09/04/17 11:20 AM JESUS FONG INTDEEJAY During your visit today, we recorded [...] COMPOUNDED PRESCRIPTION Please provide portable oxygen concentrator. [facility]. umeclidinium-vilanterol (ANORO ELLIPTA) 62.5-25 mcg/actuation [...] solution traMADol (ULTRAM) 50 mg tablet Insulin [place], Disposable, (BD ULTRAFINE III MINI PEN) 31 [...] neurological manifestations (HCC) E11.49 blood sugar diagnostic (BuyouTOUCH ULTRA TEST) test strip Insulin [place], Disposable, (BD ULTRAFINE III MINI PEN) 31 [...] counseling and/or coordinating care for the patient. Ebcd-kt-gvai time was at least 30 minutes. Jesus [...] Date Reviewed: 08/13/2017 Reviewed by: Madisyn Robbins (Door Assembler) Travis - Fully Assessed Reason for Visit: Recheck [...] E11.9 Insulin: YesDisp: 200 StripRfl: 11 Insulin [place], Disposable, (BD ULTRAFINE III MINI PEN) 31 gauge x 3/16 ndleUse One needle for each dose, 6 times a day (insulin and Victoza) . E11.9Disp: 200 EachRfl: 11 lancets (ONE TOUCH DELICA) 33 gauge miscTest blood sugar(s) 4 daily and as needed. Dx: Type 2 DM - Controlled E11.9 Insulin: YesDisp: 200 EachRfl: 11 HGB A1C [YLRYH3Y] Order #: [id number] STANDING HB A1C B/O [[id number]] Order #: [id number] metoprolol succinate ER (TOPROL XL) 50 mg [...] daily.Disp: 30 tabletRfl: 11 HEMOGLOBIN A1C (POC) [[id number]] Order #: [id number]. #:[id number] Prescriptions as of 09/04/2017 Sig: CYCLOBENZAPRINE 5 [...] End BLOOD SUGAR DIAGNOSTIC STRIPS 200 * 09/04/2017 Sig: Test blood sugar(s) 4 times [...] SUCCINATE ER 50 MG TABLET* 60 t* 09/04/2017 Route: ORAL Sig: Take 1 tablet by mouth twice daily. RISPERIDONE 0.5 MG TABLET 60 t* 5 09/04/2017 Route: ORAL Sig: Take 1 tablet by mouth twice daily. INSULIN LISPRO (U-100) 100 UNIT/ML S* 5 Ea* 09/04/2017 Cmt: Replaces Novolog since not on [...] for discontinue is not on file. Insulin [place], Disposable, (BD ULT* 200 * 11 04/26/2017 [...] GLUCOSE, POC Collected: 08/28/2017 Status: F Source: [facility] 10:43 AM [facility] REPOSITORY TYPE CODE TESTS RESULT OUT OF RANGE REFERENCE UNITS LAB GLUX 80-115 mg/dL High Glucose, 206 POC Performed By: #### GLUX #### Unless otherwise noted, all testing performed by [facility] [address] [place], [place] [address] CLIA: [id number] Sales Service Executive: Hammad Cummings M.D. SURG Observed: 08/28/2017 Status: F Source: [facility] 12:00 AM [facility] REPOSITORY Patient Name: DAMION MOYER Source A. Colon, Ascending, polyp B. Stomach/gastric, Gastric Ulcer Clinical History Diverticulosis, Colon Polyps, Gastric Ulcer, GI Bleed Diagnosis A. Colonic mucosa with mild hyperplastic changes, suggestive of hyperplastic polyp. B. 1. Reactive gastropathy with ulcer. 2. No evidence of Helicobacter pylori by routine morphology or by Giemsa stain. Gross Description A. Received in formalin are multiple ball fragments measuring in aggregate 0.5 x 0.3 x 0.2 cm. ET 1 block. B. Received in formalin are multiple ball fragments measuring in aggregate 0.5 x 0.3 x 0.2 cm. ET 1 block. LM/arj (ICT/arj) Electronically Signed By Bhanu Godinez MD , Pathologist (Case signed 08/30/2017) PROGRESS Observed: 08/13/2017 Status: COMPLETED Source: [place] 2:21 PM [facility] REPOSITORY HNO ID: [id number] Author: Madisyn Robbins (Garett) Travis Service: (none) Author Type: Nurse Practitioner [...] [facility]. Patient initially was placed on [...] Abs Lymph 1.00 - 4.00 k/uL 1.14 [place]% % 5.9 Abs [place] <0.87 k/uL 0.39 Eosin% % 1.5 Abs [...] CNP CNOVSP Observed: 08/13/2017 Status: COMPLETED Source: [place] 2:00 PM [facility] REPOSITORY Visit (SP) Office (LANDY) DAMION MOYER ([id number]) 1945 F Date Time Provider Department 08/13/17 2:00 PM MADISYN LUNDBERG (GARETT) LANDY During your visit today, we recorded the [...] has [facility]. Patient initially was placed on [...] Abs Lymph 1.00 - 4.00 k/uL 1.14 [place]% % 5.9 Abs [place] <0.87 k/uL 0.39 Eosin% % 1.5 Abs [...] involving the descending and rectosigmoid colon. Madisyn Lundberg, GARETT Referring Provider: JESUS FONG [[id number]] Allergies As of Date: 08/13/2017 Noted Allergy [...] Date Reviewed: 08/13/2017 Reviewed by: Madisyn Robbins ([facility]) Travis - Fully Assessed Reason for Visit: [...] BRONCHITIS W/O EXAC [J44.9] INVALID FOR*01/31/[address] [facility] SITE XTRNOD/SOLID ORG [C85.89] INVALID FOR*02/24/2007 NODULAR [...] METABOLIC PANEL Collected: 08/13/2017 Status: F Source: [place] 1:47 PM [facility] REPOSITORY TYPE CODE [...] mg/dL Glucose High 151 Result Comment: The [place] Diabetes Association (ADA) provides guidance for cutoff [...] Standards of Medical Care in Diabetes 2016, [place] [employer]. Diabetes Care. 2016.39(Suppl 1). LAB [...] actual GFR. Performed By: #### CMP #### [facility] [place] [address], [place] [address] REMOTE CBCDIF Collected: 08/13/2017 Status: F Source: [place] (FOR [facility] USE ONLY) 1:46 PM [facility] REPOSITORY TYPE CODE TESTS RESULT [...] k/uL Abs Lymph 1.14 LAB AMONO % [place]% 5.9 LAB AAMONO <0.87 k/uL Abs [place] 0.39 LAB AEOS % Eosin% 1.5 LAB AAEOS <0.46 k/uL Abs Eosin 0.10 LAB ABASO % Baso% 0.3 LAB AABASO <0.11 k/uL Abs Baso <0.03 RETICULOCYTE Collected: 08/13/2017 Status: F Source: [place] 1:46 PM [facility] REPOSITORY TYPE CODE TESTS RESULT OUT OF REFERENCE UNITS RANGE LAB RETC 0.4-2.0 % Retic% 1.7 LAB ABRET 0.0180-0.1000 M/uL Abs Retic 0.074 Performed By: #### RETIC #### [facility] [address] [place], [place] [address] CNPN Observed: 07/31/2017 Status: COMPLETED Source: [place] 12:00 AM [facility] REPOSITORY Telephone (INTMWS) DAMION MOYER ([id number]) 1945 F Date Time Provider Department 07/31/17 JESUS FONG During your visit today, we recorded the [...] from apnea episodes. . Patient lives in [place]. She is going to call [facility] and [facility] to see which one she wants to go to . In the meantime patient needs new supply order sent to [facility]. I will request download from [facility] to get more information. Kimberly Jose Elias BAUTISTA 08/01/2017 10:44 AM Signed Patient aide calling back with Damion in background. Damion wants study done at [facility] please. Trudy August LPN 08/01/2017 11:19 AM Signed titration order pending. Reviewed study done in 2013 from [facility] and it appears patient is on Bipap @ 16/10 - notes entered into the comment field of titration order stating such. [facility], patient gets supplies from [facility]. Jesus Fong MD 08/03/2017 1:56 PM Signed Printed order for supplies--assume she needs now before sleep study done Filed sleep study order Sharri Gonzalez 08/06/2017 8:59 AM Signed Order for supplies faxed to [facility] [phone] Sharri Gonzalez 08/06/2017 11:19 AM Signed Sleep study order; demographics, insurance, previous sleep study faxed to [facility] fax [phone]. Patient notified. Tanika Waller LPN 08/07/2017 9:19 AM Signed Order not going via fax. called [facility] sleep [facility] [place] phone [phone] and was told everyone getting sleep studies have to go through dr raphael (?sp) even if managed elsewhere. fax to his office [phone]. Faxed to this number. Allergies As of [...] 0 PAP TITRATION PSG (CPAP, BIPAP, ASV) [[id number]] Order #: [id number] FUTURE Prescriptions as of 07/31/2017 Sig: CPAP [...] BRONCHITIS W/O EXAC [J44.9] INVALID FOR*01/31/[address] [facility] SITE XTRNOD/SOLID ORG [C85.89] INVALID FOR*02/24/2007 NODULAR [...] 08/06/17 PROGRESS Observed: 07/29/2017 Status: COMPLETED Source: [place] 4:00 PM [facility] REPOSITORY HNO ID: [id number] Author: Cristin Abad Service: (none) Author Type: [...] be able to visit daughter, Linda, in jail more often. She would like to move back to [place] but is on waiting list for [facility]. PCC Interventions: Encouragement. Pt sees doctors in [facility] She has been to [facility], [facility] and [facility] so difficult to matson all her notes and MDs. Next Office Visit: 09/04/2017 Plan For Next Call: 2 wks. Cristin Abad hotel concierge Machine [facility] July 29, 2017 PROGRESS Observed: 07/29/2017 Status: COMPLETED Source: [place] 2:21 PM [facility] REPOSITORY HNO ID: [id number] Author: Lucy Vinson Service: (none) Author Type: Physician Director Employee Communications Type: Progress Notes Filed: 07/29/2017 3:01 PM Note Text: [facility], 07/29/17: HPI: The patient is here for hospital follow up. Patient was admitted to [facility] on July 21, 2017. ?She presented [...] No orthopnea. GI: No heartburn, dysphagia, diarrhea. Uro/TATTOO ARTIST: No dysuria, hesitancy, nocturia. Musculoskeletal: Chronic back [...] tremor. DATA REVIEW: Reviewed outside records from [facility]. IMPRESSION/RECOMMEND: 1. COPD, moderate. Continue daily Azithromycin. [...] to excess calories. Starting aqua therapy at [facility]. ?? 4. SCOTTY treated with BiPAP. The last PAP titration sleep study was done 06/25/2012 at [facility]. The apnea-hypopnea index (AHI)?on BiPAP 24/12 was 0-1, similar to the current readout on the patient's PAP machine. - Order FAXED to [facility] for PAP titration sleep study at last [...] acceptance of my answers. Lucy Vinson PA-C [facility] [address] [place] [id number] CNOV Observed: 07/29/2017 Status: COMPLETED Source: [place] 2:00 PM [facility] REPOSITORY Office Visit (PULMWS) DAMION MOYER ([id number]) 1945 F Date Time Provider Department 07/29/17 2:00 PM LUCY VINSON During your visit today, we recorded the following information about you: Pulse Respiration Blood pressure 73/minute 19/minute 134/86 Kelley Craven LPN 07/29/2017 2:32 PM Signed Intake information documented in the prior visit with PORTIA Knight today. Lucy Vinson PA-C 07/29/2017 3:01 PM Signed [facility], 07/29/17: HPI: The patient is here for hospital follow up. Patient was admitted to [facility] on July 21, 2017. ?She presented [...] No orthopnea. GI: No heartburn, dysphagia, diarrhea. Uro/TATTOO ARTIST: No dysuria, hesitancy, nocturia. Musculoskeletal: Chronic back [...] tremor. DATA REVIEW: Reviewed outside records from [facility]. IMPRESSION/RECOMMEND: 1. COPD, moderate. Continue daily Azithromycin. [...] to excess calories. Starting aqua therapy at [facility]. ?? 4. SCOTTY treated with BiPAP. The last PAP titration sleep study was done 06/25/2012 at [facility]. The apnea-hypopnea index (AHI)?on BiPAP 24/12 was 0-1, similar to the current readout on the patient's PAP machine. - Order FAXED to [facility] for PAP titration sleep study at last [...] acceptance of my answers. Lucy Vinson PA-C [facility] [address] [address] Lucy Vinson PA-C 07/29/2017 2:50 [...] to excess calories. Starting aqua therapy at [facility]. ?? 4. SCOTTY treated with BiPAP. The last PAP titration sleep study was done 06/25/2012 at [facility]. The apnea-hypopnea index (AHI)?on BiPAP 24/12 was 0-1, similar to the current readout on the patient's PAP machine. - Order FAXED to [facility] for PAP titration sleep study at last [...] Diagnosis:Chronic obstructive pulmonary disease, unspecified COPD type ([facility]) [J44.9] Order(s):SPIROMETRY BASELINE ONLY [4999166] Order #: [id number] FUTURE CONSULT TO CARDIOLOGY [9004] Order #: [id number]: 1 Prescriptions as of 07/29/2017 Sig: PREGABALIN [...] to excess calories. Starting aqua therapy at [facility]. ?? 4. SCOTTY treated with BiPAP. The last PAP titration sleep study was done 06/25/2012 at [facility]. The apnea-hypopnea index (AHI)?on BiPAP 24/12 was 0-1, similar to the current readout on the patient's PAP machine. - Order FAXED to [facility] for PAP titration sleep study at last [...] directed. Visit Notes: >> Kelley Craven LPN Mon July 29, 2017 2:11 PM Status: Signed Intake [...] 07/29/17 PROGRESS Observed: 07/29/2017 Status: COMPLETED Source: [facility] 1:30 PM [facility] REPOSITORY HNO ID: [id number] Author: Juan A Hinson (Cns) Service: (none) [...] 40 E66.01 Obstructive Sleep Apnea Admitted to [facility] on July 21, 2017. She presented [...] to continue to follow-up with her local bilingual spanish inbound sales. Discussed possible directed therapy. If this is considered would need a right heart catheterization to document pulmonary hypertension. An empiric increase in BiPAP pressures was added. Since the last visit, she states that breathing is a bit improved. She reports has not yet made an appointment with mold polisher for right heart catheterization. Has followed with [place] [facility], Dr. Garsia previously. She notes [...] lumps removed - COLONOSCOP W/ OR W/O [facility] SPEC 09/26/06 [address] [facility] [address]. Collazo - COLONOSCOP W/ OR W/O [facility] SPEC 07/16/14 Colonoscopy [facility] out pt - COLONOSCOPY 3- Dr. Collazo - EGD tonsil tissue removed - EGD - EGD W/O OR W/BRUSH/WASH 08/04/09 gastric bx [facility] Dr. Collazo - EGD W/O OR W/BRUSH/WASH 01/19/14 EGD out pt [facility] - EXC TUMOR SOFT TISSUE ABDOMINAL WALL SUBQ 3+CM 12/03/2016 chronic fat necrosis - HEMORRHOIDECTOMY - MASTECTOMY, PARTIAL 12/03/2016 [facility] - wide excision 2nd to breast trauma [...] W SUB Q PORT >=5 10-3- left FAMILY HISTORY Problem Relation Age of [...] COMPOUNDED PRESCRIPTION Please provide portable oxygen concentrator. [facility]. umeclidinium-vilanterol (ANORO ELLIPTA) 62.5-25 mcg/actuation [...] gentamicin (GENTAK) 0.3 % ophthalmic solution Insulin [place], Disposable, (BD ULTRAFINE III MINI PEN) 31 [...] (H) 4.3 - 5.6 % Final Comment: [place] [employer] guidelines indicate that patients with HgbA1c in the range 5.7-6.4% are at increased risk for development of diabetes, and intervention by lifestyle modification may be beneficial. HgbA1c greater or equal to 6.5% is considered diagnostic of diabetes. 2016 6.2 (H) 4.3 - 5.6 % Final Comment: [place] [employer] guidelines indicate that patients with HgbA1c in the range 5.7-6.4% are at increased risk for development of diabetes, and intervention by lifestyle modification may be beneficial. HgbA1c greater or equal to 6.5% is considered diagnostic of diabetes. 01/09/2016 6.0 (H) 4.3 - 5.6 % Final Comment: [place] [employer] guidelines indicate that patients with HgbA1c in the range 5.7-6.4% are at increased risk for development of diabetes, and intervention by lifestyle modification may be beneficial. HgbA1c greater or equal to 6.5% is considered diagnostic of diabetes. 11/01/2015 6.6 (H) 4.3 - 5.6 % Final Comment: [place] [employer] guidelines indicate that patients with HgbA1c in the range 5.7-6.4% are at increased risk for development of diabetes, and intervention by lifestyle modification may be beneficial. HgbA1c greater or equal to 6.5% is considered diagnostic of diabetes. 07/21/2015 6.1 (H) 4.3 - 5.6 % Final Comment: [place] [employer] guidelines indicate that patients with [...] specific diabetes management situations: The POC device manager shell provides a normal range of 4.2% to 6.5% for the HGBA1C POC test. However, the [place] [employer] guidelines indicate that patients with [...] catheterization discussed during hospitalization, she will contact mold polisher for an appointment to discuss 3. Edema [...] APRN.PORTIA CNOV Observed: 07/29/2017 Status: COMPLETED Source: [facility] 1:00 PM [facility] REPOSITORY Office Visit (INTMWS) DAMION MOYER ([id number]) 1945 F Date Time Provider Department 07/29/17 1:00 PM JUAN A HINSON (PORTIA) INTMWS During [...] 40 E66.01 Obstructive Sleep Apnea Admitted to [facility] on July 21, 2017. She presented [...] to continue to follow-up with her local bilingual spanish inbound sales. Discussed possible directed therapy. If this is considered would need a right heart catheterization to document pulmonary hypertension. An empiric increase in BiPAP pressures was added. Since the last visit, she states that breathing is a bit improved. She reports has not yet made an appointment with mold polisher for right heart catheterization. Has followed with [place] [facility], Dr. Garsia previously. She notes [...] lumps removed - COLONOSCOP W/ OR W/O [facility] SPEC 09/26/[address] [facility] [address] Collazo - COLONOSCOP W/ OR W/O [facility] SPEC 07/16/14 Colonoscopy [facility] out pt - COLONOSCOPY 3-11 Dr. Collazo - EGD tonsil tissue removed - EGD - EGD W/O OR W/BRUSH/WASH 08/04/09 gastric bx [facility] Dr. Collazo - EGD W/O OR W/BRUSH/WASH 01/19/14 EGD out pt [facility] - EXC TUMOR SOFT TISSUE ABDOMINAL WALL SUBQ 3+CM 12/03/2016 chronic fat necrosis - HEMORRHOIDECTOMY - MASTECTOMY, PARTIAL 12/03/2016 [facility] - wide excision 2nd to breast trauma [...] COMPOUNDED PRESCRIPTION Please provide portable oxygen concentrator. [facility]. umeclidinium-vilanterol (ANORO ELLIPTA) 62.5-25 mcg/actuation [...] gentamicin (GENTAK) 0.3 % ophthalmic solution Insulin [place], Disposable, (BD ULTRAFINE III MINI PEN) 31 [...] (H) 4.3 - 5.6 % Final Comment: [place] [employer] guidelines indicate that patients with HgbA1c in the range 5.7-6.4% are at increased risk for development of diabetes, and intervention by lifestyle modification may be beneficial. HgbA1c greater or equal to 6.5% is considered diagnostic of diabetes. 2016 6.2 (H) 4.3 - 5.6 % Final Comment: [place] [employer] guidelines indicate that patients with HgbA1c in the range 5.7-6.4% are at increased risk for development of diabetes, and intervention by lifestyle modification may be beneficial. HgbA1c greater or equal to 6.5% is considered diagnostic of diabetes. 01/09/2016 6.0 (H) 4.3 - 5.6 % Final Comment: [place] [employer] guidelines indicate that patients with HgbA1c in the range 5.7-6.4% are at increased risk for development of diabetes, and intervention by lifestyle modification may be beneficial. HgbA1c greater or equal to 6.5% is considered diagnostic of diabetes. 11/01/2015 6.6 (H) 4.3 - 5.6 % Final Comment: [place] [employer] guidelines indicate that patients with HgbA1c in the range 5.7-6.4% are at increased risk for development of diabetes, and intervention by lifestyle modification may be beneficial. HgbA1c greater or equal to 6.5% is considered diagnostic of diabetes. 07/21/2015 6.1 (H) 4.3 - 5.6 % Final Comment: [place] [employer] guidelines indicate that patients with [...] specific diabetes management situations: The POC device manager shell provides a normal range of 4.2% to 6.5% for the HGBA1C POC test. However, the [place] [employer] guidelines indicate that patients with [...] catheterization discussed during hospitalization, she will contact mold polisher for an appointment to discuss 3. Edema [...] left leg pain Make an appointment with mold polisher Referring Provider: SELF [200] Allergies As of [...] left leg pain Make an appointment with mold polisher Prescriptions ordered this encounter Disp Refills Start End TIZANIDINE 2 MG TABLET 30 t* 0 07/29/2017 Route: ORAL Sig: Take 1 tablet by mouth every 6 hours as needed. Muscle relaxant Encounter Status:Closed by JUAN A BIRCH on 07/29/17 PROGRESS Observed: 07/29/2017 Status: COMPLETED Source: [facility] 8:37 AM [facility] REPOSITORY HNO ID: [id number] Author: Juan A Hinson (Cns) Service: (none) Author Type: Nurse Specialist Type: Progress Notes Filed: 07/29/2017 8:44 AM Note Text: Admitted to [facility] on [facility] 21, 2017. She presented [...] to continue to follow-up with her local bilingual spanish inbound sales. Discussed possible directed therapy. If this is considered would need a right heart catheterization to document pulmonary hypertension. An empiric increase in BiPAP pressures was added. PROGRESS Observed: 07/29/2017 Status: COMPLETED Source: [facility] 7:57 AM [facility] REPOSITORY HNO ID: [id number] Author: Juan A Hinson (Cns) Service: (none) Author Type: Nurse Specialist Type: Progress Notes Filed: 07/29/2017 9:24 AM Note Text: OAS website checked and validated. All prescriptions have been APPROPRIATELY filled. No suspicious activity was identified.- 07/29/2017 by Juan A Hinson APRN.STAFF PHARMACIST HOSP Observed: 07/29/2017 Status: COMPLETED Source: [facility] 12:00 AM [facility] REPOSITORY Patient Update (INTMWS) DAMION MOYER ([id number]) 1945 F Date Time Provider Department 07/29/17 JUAN A HINSON ([place]) SARAIWS During your visit today, we recorded the following information about you: Juan A Hinson, GILES.PORTIA 07/29/2017 8:44 AM Signed Admitted to [facility] on July 21, 2017. She presented [...] to continue to follow-up with her local bilingual spanish inbound sales. Discussed possible directed therapy. If this is [...] Date Reviewed: 07/16/2017 Reviewed by: Darling Lacy - Fully Assessed Prescriptions as of 07/29/2017 [...] Status:Closed by JUAN A BIRCH on 07/29/17 GARETTTOUTROZIEL Observed: 07/29/2017 Status: COMPLETED Source: [facility] 12:00 AM [facility] REPOSITORY Patient Outreach (INTMWS) DAMION MOYER ([id number]) 1945 F Date Time Provider Department 07/29/17 [...] be able to visit daughter, Linda, in jail more often. She would like to move back to [place] but is on waiting list for [facility]. PCC Interventions: Encouragement. Pt sees doctors in [facility] to [facility], [facility] and [facility] so difficult to matson all her notes and MDs. Next Office Visit: 09/04/2017 Plan For Next Call: 2 wks. Cristin Abad RN Ambulatory [facility] July 29, 2017 Allergies As of Date: [...] Vinson - Fully Assessed Reason for Visit: Machine [facility] Chronic Care [1812] Prescriptions as of 07/29/2017 Sig: PREGABALIN 50 [...] 07/29/17 PROGRESS Observed: 07/25/2017 Status: COMPLETED Source: [facility] 10:38 AM [facility] REPOSITORY HNO ID: [id number] Author: Cristin Abad Service: (none) Author Type: [...] Concerns: Pt has been hospitalized again at [place]. Sent for records today. Director Of Rehabilitation plan for next outreach: [facility] Cristin Abad hotel concierge [facility] July 25, 2017 CNPTOUTREACH Observed: 07/25/2017 Status: COMPLETED Source: [facility] 12:00 AM [facility] REPOSITORY Patient Outreach (INTMWS) DAMION MOYER ([id number]) 1945 F Date Time Provider Department 07/25/17 [...] Concerns: Pt has been hospitalized again at [place]. Sent for records today. Director Of Rehabilitation plan for next outreach: Will follow up Saturday at appt [facility] Cristin Abad RN Ambulatory [facility] July 25, 2017 Juan A Hinson APRN.STAFF PHARMACIST 07/29/2017 9:24 AM Signed OARRS website checked and validated. All prescriptions have been APPROPRIATELY filled. No suspicious activity was identified.- 07/29/2017 by Juan A Hinson APRN.STAFF PHARMACIST Allergies As of Date: 07/25/2017 Noted Allergy [...] Date Reviewed: 07/16/2017 Reviewed by: Darling Lacy - Fully Assessed Primary Visit Diagnosis:DDD (degenerative [...] BRONCHITIS W/O EXAC [J44.9] INVALID FOR*01/31/[address] [facility]SOLID ORG [C85.89] INVALID FOR*02/24/2007 NODULAR [...] 07/29/17 PROGRESS Observed: 07/23/2017 Status: COMPLETED Source: [facility] 4:48 PM [facility] REPOSITORY HNO ID: [id number] Author: Sarkis Abraham Service: (none) Author Type: [...] outside records noted above. Sarkis Abraham MD, [facility] Respiratory [facility] GLUCOSE, POC Collected: 07/22/2017 Status: F Source: [facility] 3:49 PM [facility] REPOSITORY TYPE CODE TESTS RESULT OUT OF RANGE REFERENCE UNITS LAB GLUX 80-115 mg/dL High Glucose, 239 POC Performed By: #### GLUX #### Unless otherwise noted, all testing performed by [place] [address] CLIA: [id number] Sales Service Executive: Hammad Cummings M.D. GLUCOSE, POC Collected: 07/22/2017 Status: F Source: [facility] 11:16 AM [facility] REPOSITORY TYPE CODE TESTS RESULT OUT OF RANGE REFERENCE UNITS LAB GLUX 80-115 mg/dL High Glucose, 247 POC Performed By: #### GLUX #### Unless otherwise noted, all testing performed by [place] [address] CLIA: [id number] Sales Service Executive: Hammad Cummings M.D. GLUCOSE, POC Collected: 07/22/2017 Status: F Source: [facility] 8:43 AM [facility] REPOSITORY TYPE CODE TESTS RESULT OUT OF RANGE REFERENCE UNITS LAB GLUX 80-115 mg/dL High Glucose, 170 POC Performed By: #### GLUX #### Unless otherwise noted, all testing performed by [place] [address] CLIA: [id number] Sales Service Executive: Hammad Cummings M.D. GLUCOSE, POC Collected: 07/21/2017 Status: F Source: [facility] 5:06 PM [facility] REPOSITORY TYPE CODE TESTS RESULT OUT OF RANGE REFERENCE UNITS LAB GLUX 80-115 mg/dL High Glucose, 168 POC Performed By: #### GLUX #### Unless otherwise noted, all testing performed by [facility] [address] [place], [place] [address] CLIA: [id number] Sales Service Executive: Hammad Cummings M.D. GLUCOSE, POC Collected: 07/21/2017 Status: F Source: [facility] 12:30 PM [facility] REPOSITORY TYPE CODE TESTS RESULT OUT OF RANGE REFERENCE UNITS LAB GLUX 80-115 mg/dL High Glucose, 199 POC Performed By: #### GLUX #### Unless otherwise noted, all testing performed by [facility] [address] [place], [place] [address] CLIA: [id number] Sales Service Executive: Hammad Cummings M.D. CBC WITH DIFF Collected: 07/21/2017 Status: F Source: [facility] 9:45 AM [facility] REPOSITORY TYPE CODE TESTS RESULT OUT [...] Unless otherwise noted, all testing performed by [place] [address] CLIA: [id number] Sales Service Executive: Hammad Cummings M.D. MAGNESIUM Collected: 07/21/2017 Status: F Source: [facility] 9:45 AM [facility] REPOSITORY TYPE CODE TESTS RESULT OUT OF RANGE REFERENCE UNITS LAB MG 1.6-2.4 mg/dL Normal Magnesium 2.3 Performed By: #### CHEM8, CBCDIF, MG #### Unless otherwise noted, all testing performed by [place] [address] CLIA: [id number] Sales Service Executive: Hammad Cummings M.D. BASIC METABOLIC PANEL Collected: 07/21/2017 Status: F Source: [facility] 9:[facility] REPOSITORY TYPE CODE TESTS RESULT OUT [...] used with caution. LAB eGFRB ml/min/1.73sq.m eGFR, -[place] >=60 Result Comment: GFR Calc LAB CALCM 8.4-10.2 mg/dL Calcium 9.2 LAB NA 135-145 mmol/L Sodium 141 LAB K 3.5-5.1 mmol/L Low Potassium 3.4 LAB CL 98-108 mmol/L Chloride 100 LAB CO2 21-32 mmol/L CO2 High 35 Performed By: #### CHEM8, CBCDIF, MG #### Unless otherwise noted, all testing performed by [address] [address] CLIA: [id number] Sales Service Executive: Hammad Cummings M.D. GLUCOSE, POC Collected: 07/21/2017 Status: F Source: [facility] 7:57 AM [facility] TYPE CODE TESTS RESULT OUT OF RANGE REFERENCE UNITS LAB GLUX 80-115 mg/dL High Glucose, 134 POC Performed By: #### GLUX #### Unless otherwise noted, all testing performed by [address] [address] CLIA: [id number] Sales Service Executive: Hammad Cummings M.D. CHEST PA AND LATERAL Observed: 07/20/2017 Status: F Source: [facility] 10:52 PM [facility] REPOSITORY Final Report Accession No: [id number] Performed: Jul 20 2017 10:52PM Examination: [...] WITH DIFF Collected: 07/20/2017 Status: F Source: [facility] 10:15 PM [facility] REPOSITORY TYPE CODE TESTS RESULT OUT [...] Unless otherwise noted, all testing performed by [address] [address] CLIA: [id number] Sales Service Executive: Hammad Cummings M.D. PROTIME Collected: 07/20/2017 Status: F Source: [facility] 10:15 PM [facility] TYPE CODE TESTS RESULT OUT OF RANGE REFERENCE UNITS LAB PT. 11.8-14.3 Seconds Normal Protime 13.2 LAB INR Normal INR 1.03 Result Comment: The [place] [employer] recommended therapeutic range for Warfarin (Coumadin) therapy goals: PROPHYLAXIS/TREATMENT of: INR Venous Thrombosis, Pulmonary Embolism 2.0-3.0 Prevention of VTE (Orthopedic Surgery) 2.0-3.0 Atrial Fibrillation 2.0-3.0 Myocardial Infarction 2.0-3.0 Mechanical Prosthetic Heart Valves (Aortic position) 2.0-3.0 Mechanical Prosthetic Heart Valves (Mitral Position) 2.5-3.5 [place] [employer] evidence-based clinical practice guidelines. CHEST. 2012 (9th ed) Performed By: #### NTPROBNP, PT, CBCDIF, CMET, PTT, EDCTNI #### Unless otherwise noted, all testing performed by [address] [address] CLIA: [id number] Sales Service Executive: Hammad Cummings M.D. PARTIAL THROMBOPLASTIN Collected: 07/20/2017 Status: F Source: [facility] TIME 10:15 PM [facility] REPOSITORY TYPE CODE TESTS RESULT OUT OF REFERENCE UNITS RANGE LAB PTT 23.0-34.0 Seconds Partial Normal Thromboplastin Time 29 Result Comment: Suggested therapeutic range for PTT is 68-104 sec. Performed By: #### NTPROBNP, PT, CBCDIF, CMET, PTT, EDCTNI #### Unless otherwise noted, all testing performed by [address] [address] CLIA: [id number] Sales Service Executive: Hammad Cummings M.D. ED CARDIAC TROPONIN-I Collected: 07/20/2017 Status: F Source: [facility] 10:15 PM [facility] REPOSITORY TYPE CODE TESTS RESULT OUT [...] Unless otherwise noted, all testing performed by [facility] [address] [place], [place] [address] CLIA: [id number] Sales Service Executive: Hammad Cummings M.D. COMPREHENSIVE METABOLIC Collected: 07/20/2017 Status: F Source: [facility] PANEL 10:15 PM [facility] REPOSITORY TYPE CODE TESTS RESULT OUT [...] used with caution. LAB eGFRB ml/min/1.73sq.m eGFR, -[place] >=60 Result Comment: GFR Calc LAB CALCM [...] Unless otherwise noted, all testing performed by [place] [address] CLIA: [id number] Sales Service Executive: Hammad Cummings M.D. NT-PRO BNP, SERUM Collected: 07/20/2017 Status: F Source: [facility] 10:15 PM [facility] REPOSITORY TYPE CODE TESTS RESULT OUT OF REFERENCE UNITS RANGE LAB NTPROBNP 0-125 pg/mL High 596 NT-Pro BNP, Serum Performed By: #### NTPROBNP, PT, CBCDIF, CMET, PTT, EDCTNI #### Unless otherwise noted, all testing performed by [place] [address] CLIA: [id number] Sales Service Executive: Hammad Cummings M.D. GLUCOSE, POC Collected: 07/19/2017 Status: F Source: [facility] 11:30 AM [facility] REPOSITORY TYPE CODE TESTS RESULT OUT OF RANGE REFERENCE UNITS LAB GLUX 80-115 mg/dL High Glucose, 208 POC Performed By: #### GLUX #### Unless otherwise noted, all testing performed by [place] [address] CLIA: [id number] Sales Service Executive: Hammad Cummings M.D. GLUCOSE, POC Collected: 07/19/2017 Status: F Source: [facility] 8:08 AM [facility] REPOSITORY TYPE CODE TESTS RESULT OUT OF RANGE REFERENCE UNITS LAB GLUX 80-115 mg/dL High Glucose, 163 POC Performed By: #### GLUX #### Unless otherwise noted, all testing performed by [place] [address] CLIA: [id number] Sales Service Executive: Hammad Cummings M.D. URINALYSIS, ROUTINE Collected: 07/18/2017 Status: F Source: [facility] 8:00 PM [facility] REPOSITORY TYPE CODE TESTS RESULT OUT OF REFERENCE UNITS RANGE LAB COLOR Normal Color, Urine Straw LAB CHAUR Normal Character Clear LAB SPGRUR 1.003-1.029 Normal Specific 1.003 [place],Urine LAB PHUR 4.5-8.0 Normal pH,Urine 5.0 LAB [...] Unless otherwise noted, all testing performed by [place] [id number] CLIA: [id number] Sales Service Executive: Hammad Cummings M.D. Observed: 07/18/2017 Status: F Source: [facility] CULTURE, URINE 8:00 PM [facility] REPOSITORY Test Name: Culture, Urine Culture Status: Final Culture Report: No significant growth. Micro Source: Urine Performed By: #### URCUL #### Unless otherwise noted, all testing performed by [place] [address] CLIA: [id number] Sales Service Executive: Hammad Cummings M.D. GLUCOSE, POC Collected: 07/18/2017 Status: F Source: [facility] 7:40 PM [facility] REPOSITORY TYPE CODE TESTS RESULT OUT OF RANGE REFERENCE UNITS LAB GLUX 80-115 mg/dL High Glucose, 207 POC Performed By: #### GLUX #### Unless otherwise noted, all testing performed by [place] [address] CLIA: [id number] Sales Service Executive: Hammad Cummings M.D. GLUCOSE, POC Collected: 07/18/2017 Status: F Source: [facility] 4:05 PM [facility] REPOSITORY TYPE CODE TESTS RESULT OUT OF RANGE REFERENCE UNITS LAB GLUX 80-115 mg/dL High Glucose, 174 POC Performed By: #### GLUX #### Unless otherwise noted, all testing performed by [place] [address] CLIA: [id number] Sales Service Executive: Hammad Cummings M.D. GLUCOSE, POC Collected: 07/18/2017 Status: F Source: [facility] 11:48 AM [facility] REPOSITORY TYPE CODE TESTS RESULT OUT OF RANGE REFERENCE UNITS LAB GLUX 80-115 mg/dL High Glucose, 185 POC Performed By: #### GLUX #### Unless otherwise noted, all testing performed by [place] [address] CLIA: [id number] Sales Service Executive: Hammad Cummings M.D. PROGRESS Observed: 07/18/2017 Status: COMPLETED Source: [facility] 9:16 AM [facility] REPOSITORY HNO ID: [id number] Author: Lucy Vinson Service: (none) Author Type: Physician Director Employee Communications Type: Progress Notes Filed: 07/18/2017 9:20 AM [...] GLUCOSE, POC Collected: 07/18/2017 Status: F Source: [facility] 8:19 AM [facility] REPOSITORY TYPE CODE TESTS RESULT OUT OF RANGE REFERENCE UNITS LAB GLUX 80-115 mg/dL High Glucose, 137 POC Performed By: #### GLUX #### Unless otherwise noted, all testing performed by [place] [id number] CLIA: [id number] Sales Service Executive: Hammad Cummings M.D. BASIC METABOLIC PANEL Collected: 07/18/2017 Status: F Source: [facility] 3:27 AM [facility] REPOSITORY TYPE CODE TESTS RESULT OUT [...] used with caution. LAB eGFRB ml/min/1.73sq.m eGFR, -[place] >=60 Result Comment: GFR Calc LAB CALCM 8.4-10.2 mg/dL Calcium 8.8 LAB NA 135-145 mmol/L Sodium 142 LAB K 3.5-5.1 mmol/L Potassium 3.6 LAB CL 98-108 mmol/L Chloride 103 LAB CO2 21-32 mmol/L CO2 32 Performed By: #### MG, CHEM8, CBCDIF #### Unless otherwise noted, all testing performed by [address] [address] CLIA: [id number] Sales Service Executive: Hammad Cummings M.D. MAGNESIUM Collected: 07/18/2017 Status: F Source: [facility] 3:27 AM [facility] REPOSITORY TYPE CODE TESTS RESULT OUT OF RANGE REFERENCE UNITS LAB MG 1.6-2.4 mg/dL Normal Magnesium 2.3 Performed By: #### MG, CHEM8, CBCDIF #### Unless otherwise noted, all testing performed by [place] [address] [address] [place] [address] CLIA: [id number] Sales Service Executive: Hammad Cummings M.D. CBC WITH DIFF Collected: 07/18/2017 Status: F Source: [facility] 3:26 AM [facility] REPOSITORY TYPE CODE TESTS RESULT OUT [...] Unless otherwise noted, all testing performed by [facility] [address] [address] CLIA: [id number] Sales Service Executive: Hammad Cummings M.D. GLUCOSE, POC Collected: 07/17/2017 Status: F Source: [facility] 8:18 PM [facility] REPOSITORY TYPE CODE TESTS RESULT OUT OF RANGE REFERENCE UNITS LAB GLUX 80-115 mg/dL High Glucose, 215 POC Performed By: #### GLUX #### Unless otherwise noted, all testing performed by [place] [address] CLIA: [id number] Sales Service Executive: Hammad Cummings M.D. GLUCOSE, POC Collected: 07/17/2017 Status: F Source: [facility] 4:56 PM [facility] REPOSITORY TYPE CODE TESTS RESULT OUT OF RANGE REFERENCE UNITS LAB GLUX 80-115 mg/dL High Glucose, 219 POC Performed By: #### GLUX #### Unless otherwise noted, all testing performed by [address] [address] CLIA: [id number] Sales Service Executive: Hammad Cummings M.D. GLUCOSE, POC Collected: 07/17/2017 Status: F Source: [facility] 11:44 AM [facility] REPOSITORY TYPE CODE TESTS RESULT OUT OF RANGE REFERENCE UNITS LAB GLUX 80-115 mg/dL High Glucose, 233 POC Performed By: #### GLUX #### Unless otherwise noted, all testing performed by [address] [address] CLIA: [id number] Sales Service Executive: Hammad Cummings M.D. CARDIAC TROPONIN-I Collected: 07/17/2017 Status: F Source: [facility] 8:47 AM [facility] REPOSITORY TYPE CODE TESTS RESULT OUT [...] Unless otherwise noted, all testing performed by [place] [address] CLIA: [id number] Sales Service Executive: Hammad Cummings M.D. GLUCOSE, POC Collected: 07/17/2017 Status: F Source: [facility] 7:46 AM [facility] TYPE CODE TESTS RESULT OUT OF RANGE REFERENCE UNITS LAB GLUX 80-115 mg/dL High Glucose, 324 POC Performed By: #### GLUX #### Unless otherwise noted, all testing performed by [place] [address] CLIA: [id number] Sales Service Executive: Hammad Cummings M.D. CARDIAC TROPONIN-I Collected: 07/17/2017 Status: F Source: [facility] 6:09 AM [facility] TYPE CODE TESTS RESULT OUT OF RANGE [...] Unless otherwise noted, all testing performed by [place] [address] CLIA: [id number] Sales Service Executive: Hammad Cummings M.D. CHEST PA AND LATERAL Observed: 07/17/2017 Status: F Source: [facility] 2:36 AM [facility] REPOSITORY Final Report Accession No: [id number] Performed: Jul 17 2017 2:36AM Examination: [...] effusions. Interpreting Physician: MADHAV CARLSON M.D. Trans: familiael : cc: CBC WITH DIFF Collected: 07/17/2017 Status: F Source: [facility] 1:40 AM [facility] REPOSITORY TYPE CODE TESTS RESULT OUT [...] Unless otherwise noted, all testing performed by [place] [address] CLIA: [id number] Sales Service Executive: Hammad Cummings M.D. ED CARDIAC TROPONIN-I Collected: 07/17/2017 Status: F Source: [facility] 1:39 [facility] TYPE CODE TESTS RESULT OUT OF RANGE [...] Unless otherwise noted, all testing performed by [place] [address] CLIA: [id number] Sales Service Executive: Hammad Cummings M.D. LACTIC ACID Collected: 07/17/2017 Status: F Source: [facility] 1:39 [facility] REPOSITORY TYPE CODE TESTS RESULT OUT OF RANGE REFERENCE UNITS LAB LA 0.6-2.0 mmol/L Normal Lactic Acid 1.0 Performed By: #### LIPASE, LA, CHEM8, NTPROBNP, CBCDIF, CMETADD, EDCTNI #### Unless otherwise noted, all testing performed by [place] [address] CLIA: [id number] Sales Service Executive: Hammad Cummings M.D. BASIC METABOLIC PANEL Collected: 07/17/2017 Status: F Source: [facility] 1:39 AM [facility] REPOSITORY TYPE CODE TESTS RESULT OUT [...] used with caution. LAB eGFRB ml/min/1.73sq.m eGFR, -[place] >=60 Result Comment: GFR Calc LAB CALCM 8.4-10.2 mg/dL Calcium 8.9 LAB NA 135-145 mmol/L Sodium 142 LAB K 3.5-5.1 mmol/L Potassium 3.9 LAB CL 98-108 mmol/L Chloride 104 LAB CO2 21-32 mmol/L CO2 31 Performed By: #### LIPASE, LA, CHEM8, NTPROBNP, CBCDIF, CMETADD, EDCTNI #### Unless otherwise noted, all testing performed by [address] [place] [address] CLIA: [id number] Sales Service Executive: Hammad Cummings M.D. LIPASE Collected: 07/17/2017 Status: F Source: [facility] 1:39 AM [facility] REPOSITORY TYPE CODE TESTS RESULT OUT OF RANGE REFERENCE UNITS LAB LIPASE 73-393 U/L Normal Lipase 129 Performed By: #### LIPASE, LA, CHEM8, NTPROBNP, CBCDIF, CMETADD, EDCTNI #### Unless otherwise noted, all testing performed by [place] [address] CLIA: [id number] Sales Service Executive: Hammad Cummings M.D. NT-PRO BNP, SERUM Collected: 07/17/2017 Status: F Source: [facility] 1:39 AM [facility] REPOSITORY TYPE CODE TESTS RESULT OUT OF REFERENCE UNITS RANGE LAB NTPROBNP 0-125 pg/mL High 714 NT-Pro BNP, Serum Performed By: #### LIPASE, LA, CHEM8, NTPROBNP, CBCDIF, CMETADD, EDCTNI #### Unless otherwise noted, all testing performed by [facility] [address] [place] [address] CLIA: [id number] Sales Service Executive: Hammad Cummings M.D. CMET ADD-ON TESTS Collected: 07/17/2017 Status: F Source: [facility] 1:39 AM [facility] REPOSITORY TYPE CODE TESTS RESULT OUT [...] Unless otherwise noted, all testing performed by [facility] [address] [place] [address] CLIA: [id number] Sales Service Executive: Hammad Cummings M.D. Observed: 07/17/2017 Status: F Source: [facility] CULTURE, BLOOD 1:38 AM [facility] REPOSITORY Test Name: Culture, Blood Culture Status: Final Culture Report: No Growth - Day 5 Micro Source: BLOOD Performed By: #### BC #### Unless otherwise noted, all testing performed by [place] [address] CLIA: [id number] Sales Service Executive: Hammad Cummings M.D. Observed: 07/17/2017 Status: F Source: [facility] CULTURE, BLOOD 1:24 AM [facility] REPOSITORY Test Name: Culture, Blood Culture Status: Final Culture Report: No Growth - Day 5 Micro Source: BLOOD Performed By: #### BC #### Unless otherwise noted, all testing performed by [address] [address] CLIA: [id number] Sales Service Executive: Hammad Cummings M.D. XR CHEST PA 1 VIEW Observed: 07/16/2017 Status: F Source: Info [employer] 5:48 PM [facility] ([place]) REPOSITORY CHEST X-RAY, 1 VIEW HISTORY: Shortness of breath. COMPARISON: 05/05/2017. FINDINGS: The cardiomediastinal silhouette is stable. There are small bilateral pleural effusions. There is pulmonary vascular congestion. There is no pneumothorax. IMPRESSION: Findings suggestive of fluid overload. ISTAT TROPONIN I Collected: 07/16/2017 Status: F Source: [employer] 4:43 PM [facility] ([place]) REPOSITORY TYPE CODE TESTS RESULT OUT OF REFERENCE UNITS RANGE LAB ITRO 0-0.08 ng/mL ISTAT TROPONIN <0.02 I Performed By: #### ITROT #### Testing performed at [address] [address] CBC Collected: 07/16/2017 Status: F Source: [facility] 4:43 PM [facility] [place] REPOSITORY TYPE CODE [...] ACBC, CHEM7F, BNP #### Testing performed at [place] [id number] CHEM 7 FASTING Collected: 07/16/2017 Status: F Source: [facility] 4:43 PM [facility] ([place]) REPOSITORY TYPE CODE TESTS RESULT OUT OF [...] LAB GFRB ml/min/1.73 sq.m EST. GFR, >60 [place] LAB GFRCOM GFR Information Average GFR for 70+ years old = 75. Result Comment: Chronic Kidney disease, GFR = <60. Kidney failure, GFR = <15. The GFR estimate is not adjusted for extreme body surface area or acute process, nor has it been validated for women or ethnic groups other than and . Performed By: #### ACBC, CHEM7F, BNP #### Testing performed at [address] [address] B TYPE NATRIURETIC Collected: 07/16/2017 Status: F Source: [facility] [place] 4:43 PM [facility] [place] REPOSITORY TYPE CODE TESTS RESULT OUT OF REFERENCE UNITS RANGE LAB BNP 0-100 pg/mL B TYPE High NATRIURETIC 156 PEPTIDE Performed By: #### ACBC, CHEM7F, BNP #### Testing performed at [address] [address] LD Collected: 07/16/2017 Status: F Source: [facility] 2:53 PM [facility] REPOSITORY TYPE CODE TESTS RESULT OUT OF RANGE REFERENCE UNITS LAB LD 135-214 U/L LD 210 Performed By: #### LD6, B12, SERFOL #### [facility] [address] [place] [address] VITAMIN B12 Collected: 07/16/2017 Status: F Source: [facility] 2:53 PM [facility] REPOSITORY TYPE CODE TESTS RESULT OUT OF REFERENCE UNITS RANGE LAB B12 232-1245 pg/mL Vitamin B12 408 Performed By: #### LD6, B12, SERFOL #### [facility] [address] [place] [address] FOLATE, SERUM Collected: 07/16/2017 Status: F Source: [facility] 2:53 PM [facility] REPOSITORY TYPE CODE TESTS RESULT OUT [...] III (Folate III) [package insert V 1.0 [place]e]. [facility], [place], [place]: January 2015. Performed By: #### LD6, B12, SERFOL #### [facility] [address] [place] [id number] PROGRESS Observed: 07/16/2017 Status: COMPLETED Source: [facility] 2:10 PM [facility] REPOSITORY HNO ID: [id number] Author: Tia Sena Service: (none) Author Type: [...] [facility] initially was [facility] [...] She reports that she is heading to [facility] for evaluation for CHF. She reports that [...] Ref Range: 1.00 - 4.00 K/uL 2.14 [place]% Latest Units: % 7 Abs [place] Latest Ref Range: <0.87 k/uL 0.83 [place]% [...] she had diverticulitis. Her last hgb from [facility] shows hgb 12.6 on 05/26/2017. Her most [...] MD CNOVSP Observed: 07/16/2017 Status: COMPLETED Source: [facility] 1:45 PM [facility] REPOSITORY Visit (SP) Office (LANDY) DAMION MOYER ([id number]) 1945 F Date Time Provider Department 07/16/17 1:45 PM TIA SENA During your visit today, [...] [facility] Patient initially was placed on [...] She reports that she is heading to [facility] for evaluation for CHF. She reports that [...] Ref Range: 1.00 - 4.00 K/uL 2.14 [place]% Latest Units: % 7 Abs [place] Latest Ref Range: <0.87 k/uL 0.83 Eosin% [...] she had diverticulitis. Her last hgb from [facility] shows hgb 12.6 on 05/26/2017. 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] Other Visit Diagnosis:Iron deficiency anemia, unspecified iron deficiency anemia type [D50.9] Order(s):RETIC COUNT [SQRETIC] Order #: [id number] FUTURE VITAMIN B12 BLOOD [SQB12] Order #: [id number] FUTURE FOLATE SERUM [SQSERFOL] Order #: [id number] FUTURE CONSULT TO GASTROENTEROLOGY [9010] Order #: [id number]: 1 LD LACTATE DEHYDRO [SQLD6] Order #: [id number] FUTURE COMP METABOLIC PANEL [SQCMP] Order #: [id number] FUTURE CBC + DIFF (FOR REMOTE [facility] USE) [SQRCBCDF] Order #: [id number] FUTURE RETIC COUNT [SQRETIC] Order #: [id number] FUTURE IRON + TIBC [SQIRON] Order #: [id number] FUTURE FERRITIN BLD [SQFERR] Order #: [id number] FUTURE RETIC COUNT [SQRETIC] Order #: [id number] FUTURE CBC + DIFF (FOR REMOTE [facility] USE) [SQRCBCDF] Order #: [id number] FUTURE COMP METABOLIC PANEL [SQCMP] Order #: [id number] FUTURE Disposition: Return in about 3 months [...] 07/16/17 RETICULOCYTE Collected: 07/16/2017 Status: F Source: [facility] 1:25 PM [facility] REPOSITORY TYPE CODE TESTS RESULT OUT OF REFERENCE UNITS RANGE LAB RETC 0.4-2.0 % Retic% 1.9 LAB ABRET 0.0180-0.1000 M/uL Abs Retic 0.080 Performed By: #### RETIC, IRON, CMP, FERR #### [facility] [address] [place] [address] IRON AND TIBC Collected: 07/16/2017 Status: F Source: [facility] 1:25 PM [facility] REPOSITORY TYPE CODE TESTS RESULT OUT OF REFERENCE UNITS RANGE LAB IRN 41-186 ug/dL Low Iron 23 LAB TIBC 232-386 ug/dL TIBC 324 LAB SAT 15-57 % Low Transferrin Saturatn 7 Performed By: #### RETIC, IRON, CMP, FERR #### [facility] [address] [place] [address] COMP METABOLIC PANEL Collected: 07/16/2017 Status: F Source: [facility] 1:25 PM [facility] REPOSITORY TYPE CODE TESTS RESULT OUT OF REFERENCE UNITS RANGE LAB TP 6.3-8.0 g/dL Protein, Total 6.7 LAB ALB 3.9-4.9 g/dL Low Albumin 3.7 LAB CA 8.5-10.2 mg/dL Calcium, Total 8.8 LAB TBIL 0.2-1.3 mg/dL Bilirubin, Total 1.0 LAB ALKP 32-117 U/L Alkaline High Phosphatase 128 LAB AST 13-35 U/L AST 24 LAB GLU 74-99 mg/dL Glucose High 120 Result Comment: The [place] Diabetes Association (ADA) provides guidance for cutoff [...] Standards of Medical Care in Diabetes 2016, [place] Diabetes Association. Diabetes Care. 2016.39(Suppl 1). LAB [...] By: #### RETIC, IRON, CMP, FERR #### [facility] [place] [address] [place] [id number] FERRITIN Collected: 07/16/2017 Status: F Source: [facility] 1:25 PM [facility] REPOSITORY TYPE CODE TESTS RESULT OUT OF REFERENCE UNITS RANGE LAB FERR 14.7-205.1 ng/mL Ferritin 71.8 Performed By: #### RETIC, IRON, CMP, FERR #### [facility] [place] [address] [place], [place] [address] REMOTE ABS GRAN + Collected: 07/16/2017 Status: F Source: [facility] CBC (FOR [facility] USE 1:24 PM [facility] ONLY) REPOSITORY TYPE CODE TESTS [...] 7.76 PROGRESS Observed: 07/12/2017 Status: COMPLETED Source: [facility] 3:10 PM [facility] REPOSITORY HNO ID: [id number] Author: Lucy Vinson Service: (none) Author Type: Physician Director Employee Communications Type: Progress Notes Filed: 07/12/2017 3:35 PM Note Text: [facility], 07/12/17: HPI: The patient is here for [...] home. Continuous 4 L supplemental oxygen. DME: [employer]. Consistently wearing CPAP. It feels like it [...] swallow study. Scheduled to see speech therapy. Uro/TATTOO ARTIST: No dysuria, hesitancy, nocturia. Musculoskeletal: No pain. [...] tremor. DATA REVIEW: Received outside records from [facility]. ? Modified Barium Swallow on 06/19/17 revealed laryngeal penetration of thin liquids without aspiration. ? Speech therapy notes recommend: While chasity aspiration was not observed, considering Damion's delicate pulmonary status, her chief complaints, and the consistent laryngeal penetration aspiration and resulting pulmonary compromise a risk, BROWNING PROCESSOR recommends thickened liquid consistency of nectar and [...] to excess calories. Starting aqua therapy at [facility]. ?? 3. SCOTTY treated with BiPAP. The last PAP titration sleep study was done 06/25/2012 at [facility]. The apnea-hypopnea index (AHI) on BiPAP 16/10 was 0-1, similar to the current readout on the patient's PAP machine. - Order FAXED to [facility] for PAP titration sleep study. ?? 4. [...] acceptance of my answers. Lucy Vinson PA-C [facility] [place] [address] [place] [address] CNOV Observed: 07/12/2017 Status: COMPLETED Source: [facility] 3:00 PM [facility] REPOSITORY Office Visit (PULMWS) DAMION MOYER ([id number]) 1945 F Date Time Provider Department 07/12/17 3:00 PM LUCY VINSON PULMWS During your visit today, we recorded the following information about you: Pulse Respiration Blood pressure 74/minute 17/minute 124/76 Lucy Vinson 07/12/2017 3:35 PM Signed [facility], 07/12/17: HPI: The patient is here for [...] swallow study. Scheduled to see speech therapy. Uro/TATTOO ARTIST: No dysuria, hesitancy, nocturia. Musculoskeletal: No pain. [...] tremor. DATA REVIEW: Received outside records from [facility]. ? Modified Barium Swallow on 06/19/17 revealed laryngeal penetration of thin liquids without aspiration. ? Speech therapy notes recommend: While chasity aspiration was not observed, considering Damion's delicate pulmonary status, her chief complaints, and the consistent laryngeal penetration aspiration and resulting pulmonary compromise a risk, BROWNING PROCESSOR recommends thickened liquid consistency of nectar and [...] to excess calories. Starting aqua therapy at [facility]. ?? 3. SCOTTY treated with BiPAP. The last PAP titration sleep study was done 06/25/2012 at [facility]. The apnea-hypopnea index (AHI) on BiPAP 24/12 was 0-1, similar to the current readout on the patient's PAP machine. - Order FAXED to [facility] for PAP titration sleep study. ?? 4. [...] acceptance of my answers. Lucy Vinson PA-C [facility] [address] [phone] Lucy Vinson 07/12/2017 3:33 PM Addendum 1. [...] to excess calories. Starting aqua therapy at [facility]. ?? 3. SCOTTY treated with BiPAP. The last PAP titration sleep study was done 06/25/2012 at [facility]. The apnea-hypopnea index (AHI) on BiPAP 24/12 was 0-1, similar to the current readout on the patient's PAP machine. Patient has gained weight since last study was done. - Order FAXED to [facility] for PAP titration sleep study. ?? 4. [...] W/O EXAC [J44.9] INVALID FOR*01/31/2015 [facility] SITE XTRNOD/SOLID ORG [C85.89] INVALID FOR*02/24/2007 NODULAR [...] to excess calories. Starting aqua therapy at [facility]. ?? 3. SCOTTY treated with BiPAP. The last PAP titration sleep study was done 06/25/2012 at [facility]. The apnea-hypopnea index (AHI) on BiPAP 24/12 was 0-1, similar to the current readout on the patient's PAP machine. Patient has gained weight since last study was done. - Order FAXED to [facility] for PAP titration sleep study. ?? 4. [...] 30 days. Disc: Patient chooses alternative therapy MYCUEAFI-SVUDROZZZ-BYDOEIBN 3.5 MG/M* 05/02/2017 07/12/2017 Class: Historical Med Sig: Disc: Discontinued by Patient Disposition: Return in 8 weeks (on 09/09/2017). Follow-up and Disposition History Recorded Encounter Status:Closed by LUCY VINSON on 07/12/17 SENDOUT TEST Collected: 07/12/2017 Status: F Source: [place] [facility] 11:38 AM [facility] ([place]) REPOSITORY TYPE CODE TESTS RESULT OUT OF REFERENCE UNITS RANGE LAB UNKSO SENDOUT TEST DRUG MC Performed By: #### UNKSO #### Testing performed at [address] [address] PROGRESS Observed: 07/05/2017 Status: COMPLETED Source: [facility] 4:04 PM [facility] [place] REPOSITORY HNO ID: [id number] Author: Lucy Vinson Service: (none) Author Type: Physician Director Employee Communications Type: Progress Notes Filed: 07/05/2017 4:08 PM Note Text: Received outside records from [facility]. Modified Barium Swallow on 06/19/17 revealed laryngeal penetration of thin liquids without aspiration. Speech therapy notes recommend: While chasity aspiration was not observed, considering Damion's delicate pulmonary status, her chief complaints, and the consistent laryngeal penetration aspiration and resulting pulmonary compromise a risk, BROWNING PROCESSOR recommends thickened liquid consistency of nectar and therapy to improve airway protection. PROGRESS Observed: 07/03/2017 Status: COMPLETED Source: [facility] 10:59 AM [facility] [place] REPOSITORY HNO ID: [id number] Author: Rigoberto Bauer Service: (none) Author Type: Physician Type: Progress Notes Filed: 07/04/2017 1:59 PM Note Text: FOLLOW UP VISIT - POST OP NAME: Damion Moyer [facility] NO.: [id number] DATE OF SERVICE: July 02, 2017 : [...] follow up recommended. Jose Armando hill/julisa:06/25/2017 16:33:11 Pharmacy Buyer: Brittany THOMAS)(Alla), [facility] letter sent: # Mo FU ? OVERALL STUDY BIRADS: 3 Probably benign finding - short term interval follow-up recommended Vp Product Marketing: Julisa Transcribe Date/Time: Jun 25 2017 ?3:35P Dictated by : JOSE ARMANDO DEL CID, DO This examination was interpreted and the report reviewed and electronically signed by: JOSE ARMANDO DEL CID, DO on Jun 25 2017 ?4:33PM ?EST Results-Findings * * *Final Report* * * DATE OF EXAM: Jun 25 2017 ?4:04PM ? WRU ? [id number] ?- ?[facility] US BREAST LTD LT ?/ PROCEDURE REASON: multiple diagnoses ?? ? * * * * Physician Interpretation * * * * ?#[id number] - [facility] DIAGNOSTIC KARTHIK BILATERAL DIGITAL DIAGNOSTIC MAMMOGRAM WITH CAD: 06/25/2017 HISTORY: Multiple DiagnosesABNORMAL MAMMOGRAM ?PAIN LEFT BREAST. RESULT: TECHNIQUE: ?The study was acquired using full field digital technology and interpreted from soft copy. Current study was also evaluated with a Computer Aided Detection (CAD). Comparison is made to exams dated: ?05/17/2016 mammogram, 10/13/2015 mammogram, 04/14/2015 mammogram, 10/12/2014 mammogram - [facility], and 10/11/2014 mammogram - [facility]. There are scattered fibroglandular elements in [...] in the left breast is probably benign. #[id number] - [facility] [employer] BREAST LTD LT ULTRASOUND OF LEFT BREAST: 06/25/2017 RESULT: Comparison is made to exams dated: ?05/17/2016 mammogram, 10/13/2015 mammogram, 04/14/2015 mammogram, 10/12/2014 mammogram - [facility], and 10/11/2014 mammogram - [facility]. Ultrasound of the left breast was [...] MD CNOV Observed: 07/02/2017 Status: COMPLETED Source: [facility] 3:00 PM [facility] REPOSITORY Office Visit (GENSWS) JOÃODAMION Alejandro ([id number]) 1945 F Date Time Provider Department 07/02/17 3:00 PM RIGOBERTO BAUER During your visit today, we recorded the following information about you: Pulse Blood pressure 68/minute 148/84 Rigoberto Bauer MD 07/04/2017 1:59 PM Signed FOLLOW UP VISIT - POST OP NAME: Damion Moyer [facility] NO.: [id number] DATE OF SERVICE: July 02, 2017 : [...] follow up recommended. Jose Armando hill/julisa:06/25/2017 16:33:11 Pharmacy Buyer: Brittany THOMAS)(Alla), [facility] letter sent: # Mo FU ? OVERALL STUDY BIRADS: 3 Probably benign finding - short term interval follow-up recommended Vp Product Marketing: Julisa Transcribe Date/Time: Jun 25 2017 ?3:35P Dictated by : JOSE ARMANDO DEL CID, DO This examination was interpreted and the report reviewed and electronically signed by: JOSE ARMANDO DEL CID, DO on Jun 25 2017 ?4:33PM ?EST Results-Findings * * *Final Report* * * DATE OF EXAM: Jun 25 2017 ?4:04PM ? WRU ? 0593 ?- ?[facility] US BREAST LTD LT ?/ PROCEDURE REASON: multiple diagnoses ?? ? * * * * Physician Interpretation * * * * ?#[id number] - [facility] DIAGNOSTIC KARTHIK BILATERAL DIGITAL DIAGNOSTIC MAMMOGRAM WITH CAD: 06/25/2017 HISTORY: Multiple DiagnosesABNORMAL MAMMOGRAM ?PAIN LEFT BREAST. RESULT: TECHNIQUE: ?The study was acquired using full field digital technology and interpreted from soft copy. Current study was also evaluated with a Computer Aided Detection (CAD). Comparison is made to exams dated: ?05/17/2016 mammogram, 10/13/2015 mammogram, 04/14/2015 mammogram, 10/12/2014 mammogram - [facility], and 10/11/2014 mammogram - [facility]. There are scattered fibroglandular elements in [...] in the left breast is probably benign. #[id number] - [facility] ULTRASOUND OF LEFT BREAST: 06/25/2017 RESULT: Comparison is made to exams dated: ?05/17/2016 mammogram, 10/13/2015 mammogram, 04/14/2015 mammogram, 10/12/2014 mammogram - [facility], and 10/11/2014 mammogram - [facility]. Ultrasound of the left breast was [...] Rigoberto Bauer MD Referring Provider: JESUS FONG [[id number]] Allergies As of Date: 07/02/2017 Noted Allergy [...] by: Shaila Roche LPN - Fully Assessed Primary Visit Diagnosis:Lump of [...] TAKE 1 TABLET BY MOUTH ONCE D* [id number] 3* NITROFURANTOIN MACROCRYSTAL 1* ALBUTEROL SULFATE 2.5 [...] BRONCHITIS W/O EXAC [J44.9] INVALID FOR*01/31/[address] [facility]SOLID ORG [C85.89] INVALID FOR*02/24/2007 NODULAR [...] 07/04/17 [facility]CO Observed: 06/25/2017 Status: COMPLETED Source: [facility] 4:33 PM [facility] REPOSITORY HNO ID: [id number] Author: Mammography Coordinator Service: (none) Author Type: Physician Type: Letter Filed: 06/26/2017 11:32 PM Note Text: June 25, 2017 PID: [id number] Damion Moyer [address] [id number] Dear Ms. Moyer, Your recent breast imaging examination performed on 06/25/2017 showed an area that we believe is probably benign (not cancer). A six month follow-up is recommended to ensure your breast health. Please call [phone] to schedule an appointment for these tests [...] Sincerely, Dr. Del Cid Interpreting Radiologist [facility] (# mo Follow-up) CNCO Observed: 06/25/2017 Status: COMPLETED Source: [place] 4:33 PM [facility] REPOSITORY HNO ID: [id number] Author: Mammography Coordinator Service: (none) Author Type: Physician Type: Letter Filed: 06/26/2017 11:32 PM Note Text: June 25, 2017 PID: [id number] Damion Moyer [address] [place] [address] Dear Ms. Moyer, Your recent breast imaging examination performed on 06/25/2017 showed an area that we believe is probably benign (not cancer). A six month follow-up is recommended to ensure your breast health. Please call [phone] to schedule an appointment for these tests [...] Sincerely, Dr. Del Cid Interpreting Radiologist [facility] (# mo Follow-up) PROGRESS Observed: 06/25/2017 Status: COMPLETED Source: [place] 4:24 PM [facility] REPOSITORY HNO ID: [id number] Author: Lizzette Ortiz Rdms Service: (none) Author [...] Ortiz Rdms June 25, 2017 4:24 PM [facility] US BREAST LTD Observed: 06/25/2017 Status: F Source: [facility] 4:04 PM [facility] REPOSITORY * * *Final Report* * * DATE OF EXAM: Jun 25 2017 4:04PM WRU 0593 - [employer] US BREAST LTD LT / PROCEDURE REASON: multiple diagnoses * * * * Physician Interpretation * * * * #[id number] - [facility] DIAGNOSTIC KARTHIK BILATERAL DIGITAL DIAGNOSTIC MAMMOGRAM WITH CAD: 06/25/2017 HISTORY: Multiple Diagnoses\ABNORMAL MAMMOGRAM \ PAIN LEFT BREAST. RESULT: TECHNIQUE: The study was acquired using full field digital technology and interpreted from soft copy. Current study was also evaluated with a Computer Aided Detection (CAD). Comparison is made to exams dated: 05/17/2016 mammogram, 10/13/2015 mammogram, 04/14/2015 mammogram, 10/12/2014 mammogram - [facility], and 10/11/2014 mammogram - [facility]. There are scattered fibroglandular elements in [...] in the left breast is probably benign. #[id number] - [facility] ULTRASOUND OF LEFT BREAST: 06/25/2017 RESULT: Comparison is made to exams dated: 05/17/2016 mammogram, 10/13/2015 mammogram, 04/14/2015 mammogram, 10/12/2014 mammogram - [facility], and 10/11/2014 mammogram - [facility]. Ultrasound of the left breast was [...] follow up recommended. Jose Armando hill/julisa:06/25/2017 16:33:11 Pharmacy Buyer: Brittany DOS SANTOS(Esther)(M), [facility] letter sent: # Mo FU OVERALL STUDY BIRADS: 3 Probably benign finding - short term interval follow-up recommended Vp Product Marketing: Julisa Transcribe Date/Time: Jun 25 2017 3:35P Dictated by : JOSE ARMANDO DEL CID DO This examination was interpreted and the report reviewed and electronically signed by: JOSE ARMANDO DEL CID DO on Jun 25 2017 4:33PM EST [id number] [facility] DIAGNOSTIC KARTHIK Observed: 06/25/2017 Status: F Source: [facility] 3:19 PM [facility] REPOSITORY * * *Final Report* * * DATE OF EXAM: Jun 25 2017 3:19PM WRW 0620 - [facility] DIAGNOSTIC KARTHIK / PROCEDURE REASON: multiple diagnoses * * * * Physician Interpretation * * * * RESULT: #[id number] - [facility] DIAGNOSTIC KARTHIK BILATERAL DIGITAL DIAGNOSTIC MAMMOGRAM WITH CAD: 06/25/2017 HISTORY: Multiple Diagnoses\ABNORMAL MAMMOGRAM \ PAIN LEFT BREAST. RESULT: TECHNIQUE: The study was acquired using full field digital technology and interpreted from soft copy. Current study was also evaluated with a Computer Aided Detection (CAD). Comparison is made to exams dated: 05/17/2016 mammogram, 10/13/2015 mammogram, 04/14/2015 mammogram, 10/12/2014 mammogram - [facility], and 10/11/2014 mammogram - [facility]. There are scattered fibroglandular elements in [...] in the left breast is probably benign. #[id number] - [facility] US BREAST LTD LT ULTRASOUND OF LEFT BREAST: 06/25/2017 RESULT: Comparison is made to exams dated: 05/17/2016 mammogram, 10/13/2015 mammogram, 04/14/2015 mammogram, 10/12/2014 mammogram - [facility], and 10/11/2014 mammogram - [facility]. Ultrasound of the left breast was [...] follow up recommended. Jose Armando hill/julisa:06/25/2017 16:33:11 Pharmacy Buyer: Brittany DOS SANTOS (R)(Alla), [facility] letter sent: # Mo FU OVERALL STUDY BIRADS: 3 Probably benign finding - short term interval follow-up recommended Vp Product Marketing: Julisa Transcribe Date/Time: Jun 25 2017 3:35P Dictated by: JOSE ARMANDO DEL CID DO This examination was interpreted and the report reviewed and electronically signed by: JOSE ARMANDO DEL CID DO on Jun 25 2017 4:33PM EST [id number] CNOV Observed: 06/25/2017 Status: COMPLETED Source: [facility] 1:40 PM [facility] REPOSITORY Office Visit (INTMWS) DAMION MOYER ([id number]) 1945 F Date Time Provider Department 06/25/17 [...] lumps removed - COLONOSCOP W/ OR W/O [facility] SPEC 09/26/06 Colonoscopy [facility] [address]. Collazo - COLONOSCOP W/ OR W/O [facility] 07/16/14 Colonoscopy [facility] out pt - COLONOSCOPY 3- Dr. Collazo - EGD tonsil tissue removed - EGD - EGD W/O OR W/BRUSH/WASH 08/04/09 gastric bx [facility] Dr. Collazo - EGD W/O OR W/BRUSH/WASH 01/19/14 EGD out pt [facility] - EXC TUMOR SOFT TISSUE ABDOMINAL WALL SUBQ 3+CM 12/03/2016 chronic fat necrosis - HEMORRHOIDECTOMY - MASTECTOMY, PARTIAL 12/03/2016 [facility] - wide excision 2nd to breast trauma [...] COMPOUNDED PRESCRIPTION Please provide portable oxygen concentrator. [facility]. gabapentin (NEURONTIN) 100 mg capsule [...] ONCE DAILY. FREESTYLE LANCETS 28 gauge misc [id number] 3.5 MG/ML-10,000 UNIT/ML-0.1% EYE DROPS nitrofurantoin (MACRODANTIN) 100 mg capsule albuterol (PROVENTIL) 2.5 mg /3 mL (0.083 %) nebulizer solution Use 3 mL via nebulizer every 4 hours as needed. OVER 5-15 MINUTES. May take up to every 2 hours during COPD exacerbation. Dx copd J44.9 gentamicin (GENTAK) 0.3 % ophthalmic solution traMADol (ULTRAM) 50 mg tablet Insulin [place], Disposable, (BD ULTRAFINE III MINI PEN) 31 [...] (H) 4.3 - 5.6 % Final Comment: [place] [employer] guidelines indicate that patients with HgbA1c in the range 5.7-6.4% are at increased risk for development of diabetes, and intervention by lifestyle modification may be beneficial. HgbA1c greater or equal to 6.5% is considered diagnostic of diabetes. 2016 6.2 (H) 4.3 - 5.6 % Final Comment: [place] [employer] guidelines indicate that patients with HgbA1c in the range 5.7-6.4% are at increased risk for development of diabetes, and intervention by lifestyle modification may be beneficial. HgbA1c greater or equal to 6.5% is considered diagnostic of diabetes. 01/09/2016 6.0 (H) 4.3 - 5.6 % Final Comment: [place] [employer] guidelines indicate that patients with HgbA1c in the range 5.7-6.4% are at increased risk for development of diabetes, and intervention by lifestyle modification may be beneficial. HgbA1c greater or equal to 6.5% is considered diagnostic of diabetes. 11/01/2015 6.6 (H) 4.3 - 5.6 % Final Comment: [place] [employer] guidelines indicate that patients with HgbA1c in the range 5.7-6.4% are at increased risk for development of diabetes, and intervention by lifestyle modification may be beneficial. HgbA1c greater or equal to 6.5% is considered diagnostic of diabetes. 07/21/2015 6.1 (H) 4.3 - 5.6 % Final Comment: [place] [employer] guidelines indicate that patients with [...] specific diabetes management situations: The POC device manager shell provides a normal range of 4.2% to 6.5% for the HGBA1C POC test. However, the [place] [employer] guidelines indicate that patients with [...] agreed with the plan. Juan A Hinson APRN.STAFF PHARMACIST Juan A Hinson APRN.[place] 06/25/2017 2:31 PM Addendum Increase lisinopril to 40 mg daily May take two 20 mg lisinopril daily until gone then take One 40 mg lisinopril daily. Increase lasix. Take one extra 40 mg lasix daily for 3 days. Records have been sent to [facility] in [place] Occasional use of hydrocodone Referring Provider: RIGOBERTO BAUER [[id number]] Allergies As of Date: 06/25/2017 Noted Allergy [...] MOUTH ONCE D* FREESTYLE LANCETS 28 GAUGE [id number]-[id number] 3* NITROFURANTOIN MACROCRYSTAL 1* ALBUTEROL SULFATE 2.5 [...] 3 days. Records have been sent to [facility] in [place] Occasional use of hydrocodone Prescriptions ordered this [...] 06/25/17 PROGRESS Observed: 06/25/2017 Status: COMPLETED Source: [facility] 11:58 AM [facility] REPOSITORY O ID: [id number] Author: Juan A Hinson (Cns) Service: (none) [...] lumps removed - COLONOSCOP W/ OR W/O [facility] 09/26/[address] [facility] [address] Collazo - COLONOSCOP W/ OR W/O [facility] SPE[facility] 07/16/14 Colonoscopy [facility] out pt - COLONOSCOPY 3-11 Dr. Collazo - EGD tonsil tissue removed - EGD - EGD W/O OR W/BRUSH/WASH 08/04/09 gastric bx [facility] Dr. Collazo - EGD W/O OR W/BRUSH/WASH 01/19/14 EGD out pt [facility] - EXC TUMOR SOFT TISSUE ABDOMINAL WALL SUBQ 3+CM 12/03/2016 chronic fat necrosis - HEMORRHOIDECTOMY - MASTECTOMY, PARTIAL 12/03/2016 [facility] - wide excision 2nd to breast trauma [...] COMPOUNDED PRESCRIPTION Please provide portable oxygen concentrator. [facility]. gabapentin (NEURONTIN) 100 mg capsule [...] ONCE DAILY. FREESTYLE LANCETS 28 gauge misc [id number]-[id number] 3.5 MG/ML-10,000 UNIT/ML-0.1% EYE DROPS nitrofurantoin (MACRODANTIN) 100 mg capsule albuterol (PROVENTIL) 2.5 mg /3 mL (0.083 %) nebulizer solution Use 3 mL via nebulizer every 4 hours as needed. OVER 5-15 MINUTES. May take up to every 2 hours during COPD exacerbation. Dx copd J44.9 gentamicin (GENTAK) 0.3 % ophthalmic solution traMADol (ULTRAM) 50 mg tablet Insulin [place], Disposable, (BD ULTRAFINE III MINI PEN) 31 [...] (H) 4.3 - 5.6 % Final Comment: [place] [employer] guidelines indicate that patients with HgbA1c in the range 5.7-6.4% are at increased risk for development of diabetes, and intervention by lifestyle modification may be beneficial. HgbA1c greater or equal to 6.5% is considered diagnostic of diabetes. 2016 6.2 (H) 4.3 - 5.6 % Final Comment: [place] [employer] guidelines indicate that patients with HgbA1c in the range 5.7-6.4% are at increased risk for development of diabetes, and intervention by lifestyle modification may be beneficial. HgbA1c greater or equal to 6.5% is considered diagnostic of diabetes. 01/09/2016 6.0 (H) 4.3 - 5.6 % Final Comment: [place] [employer] guidelines indicate that patients with HgbA1c in the range 5.7-6.4% are at increased risk for development of diabetes, and intervention by lifestyle modification may be beneficial. HgbA1c greater or equal to 6.5% is considered diagnostic of diabetes. 11/01/2015 6.6 (H) 4.3 - 5.6 % Final Comment: [place] [employer] guidelines indicate that patients with HgbA1c in the range 5.7-6.4% are at increased risk for development of diabetes, and intervention by lifestyle modification may be beneficial. HgbA1c greater or equal to 6.5% is considered diagnostic of diabetes. 07/21/2015 6.1 (H) 4.3 - 5.6 % Final Comment: [place] [employer] guidelines indicate that patients with [...] specific diabetes management situations: The POC device manager shell provides a normal range of 4.2% to 6.5% for the HGBA1C POC test. However, the [place] [employer] guidelines indicate that patients with [...] agreed with the plan. Juan A Hinson APRN.[facility] CNPTOUTREACH Observed: 06/20/2017 Status: COMPLETED Source: [facility] 12:00 AM [facility] REPOSITORY Patient Outreach (INTMWS) DAMION MOYER ([id number]) 1945 F Date Time Provider Department 06/20/17 [...] which she has done last fall at [facility]. Suggested Pain Mgmt. She went to [facility] and they gave her 6 Vicodin. [facility] referred pt. to [facility] in [place]. ; Concerns: Damion has seen several Pain Mgmt and Orthopedists without helping her pain. Director Of Rehabilitation plan for next outreach: Signature Cristin Abad RN Ambulatory [facility] June 20, 2017 Allergies As of Date: [...] 1* X FREESTYLE LANCETS 28 GAUGE X OCDNCAKB-OMEPKTUXF-AFRZKAUW 3* ALBUTEROL SULFATE 2.5 MG/3 ML* Use [...] Obstructive sleep apnea [G47.33] More... Letter Text [facility] [address], [place] [address] Damion Moyer [address] [place] [address] Clinic #: [id number] 06/24/2017 [facility]; I am referring [...] Sincerely, Jesus Fong M.D. Encounter Status:Closed by [employer] PRODUSER on 12/20/17 CT SPINE LUMBAR Observed: 06/19/2017 Status: F Source: [employer] WITHOUT CONTRAST 12:37 PM SYSTEM ([place]) REPOSITORY EXAM: CT SPINE LUMBAR WITHOUT CONTRAST [...] AP ONLY Observed: 06/19/2017 Status: F Source: [employer] 12:37 PM [facility] ([place]) REPOSITORY PROCEDURE: FRONTAL PELVIS RADIOGRAPH, 06/19/2017 12:37 [...] formation and subchondral sclerosis. There is essentially bgih-ln-hobm contact on the right. Findings are unchanged. Right sacroiliac joint and pubic symphysis are intact. IMPRESSION: Degraded examination as described. No acute osseous abnormality within the constraints of this exam. Severe right hip joint osteoarthritis with wqux-wo-msml contact. This is unchanged. Moderately advanced left hip joint osteoarthritis. XR FLUORO MODIFIED Observed: 06/19/2017 Status: F Source: [employer] BARIUM SWALLOW WITH 11:36 AM [place] ([place] REPOS[place] SPEECH EXAMINATION: XR FLUORO MODIFIED BARIUM [...] recommendations. CNPN Observed: 06/17/2017 Status: COMPLETED Source: [facility] 12:00 AM [facility] REPOSITORY Telephone (PULWS) DAMION MOYER ([id number]) 1945 F Date Time Provider Department 06/17/17 SARKIS ABRAHAM [facility] During your visit today, [...] last Sleep Study was done at the [facility] on 07/17/2012. Please contact her at: [phone], when and if order is placed, to schedule. Kelley Craven LPN 06/17/2017 12:33 PM Signed Please advise. Kelley Abraham MD 06/18/2017 1:58 PM Signed I have reviewed the record. The last PAP titration sleep study was done 06/25/2012 at [facility]. The apnea-hypopnea index (AHI) on BiPAP / was 0-1, similar to the current readout [...] her obstructive sleep apnea. Sarkis Abraham MD, [facility] [address] [address] P: [phone] F: [phone] [email or web address] Kelley Craven LPN 06/18/2017 2:07 PM Signed Order faxed to [facility] Kelley Craven LPN Allergies As of Date: [...] TAKE 1 TABLET BY MOUTH ONCE D* CBYEINDB-LDOSQTEZG-BVWZXGUW 3* NITROFURANTOIN MACROCRYSTAL 1* X FREESTYLE LANCETS [...] do modified barium swallow. FAX results to [phone] Attn: Lucy Vinson PA-C. Disc: Duplicate Entry [...] 06/18/17 PROGRESS Observed: 06/10/2017 Status: COMPLETED Source: [facility] 2:57 PM [facility] REPOSITORY HNO ID: [id number] Author: Lucy Vinson Service: (none) Author Type: Physician Director Employee Communications Type: Progress Notes Filed: 06/10/2017 3:02 PM Note Text: CXR, 05/05/17 [facility] (read only) Impression Cardiomegaly. Pulmonary hyperinflation. Asymmetry of density in the right base, which appears to reflect a prominent overlying soft tissue and obliquity accentuation. A mild acute process is not excluded. PROGRESS Observed: 06/08/2017 Status: COMPLETED Source: [facility] 6:19 AM [facility] REPOSITORY HNO ID: [id number] Author: Rigoberto Bauer Service: (none) Author Type: Physician Type: Progress Notes Filed: 06/08/2017 6:35 AM Note Text: FOLLOW UP VISIT - POST OP NAME: Damion Moyer [facility] NO.: [id number] DATE OF SERVICE: June 06, 2017 : [...] MD CNOV Observed: 06/07/2017 Status: COMPLETED Source: [place] 3:00 PM [facility] REPOSITORY Office Visit (PULMWS) DAMION MOYER ([id number]) 1945 F Date Time Provider Department 06/07/17 3:00 PM LUCY VINSON PULMWS During your visit today, we recorded the following information about you: Pulse Respiration Blood pressure Weight 79/minute 18/minute 148/100 112.5 kg Kelley Craven MICHELE 06/07/2017 2:51 PM Signed Intake information documented in the prior visit with Meera Paniagua, MODELING DIRECTOR today. Lucy Vinson PA-C 06/07/2017 3:42 PM Signed [facility], 06/07/17: HPI: The patient is here for [...] BiPAP with 4 L oxygen nightly. DME: [facility]. PMH changes: Reviewed with patient [...] my own salivaANDquot;. Was recently evaluated at [facility] in [place], no swallow study. No diarrhea. Uro/TATTOO ARTIST: No dysuria, hesitancy, nocturia. Musculoskeletal: Hip pain. [...] Will order portable oxygen concentrator. Send to [facility]. ?? 2. Morbid obesity, due [...] chest and/or CXR results from [facility] in [place]. ? - I re-addressed the pathophysiology of [...] acceptance of my answers. Lucy Vinson PA-C [facility] [address] [place] [address] Lucy Vinson PA-C 06/07/2017 3:39 [...] Will order portable oxygen concentrator. Send to [facility]. ?? 2. Morbid obesity, due [...] obtain CT chest and/or CXR results from [facility] in [place]. Lucy Vinson PA-C 06/07/2017 3:52 PM Signed [...] Diagnosis:Chronic obstructive pulmonary disease, unspecified COPD type ([facility]) [J44.9] Other Visit Diagnoses:Obesity, Class III, BMI 40-49.9 (morbid obesity) ([facility]) [E66.01] Obstructive sleep apnea [G47.33] Hypoxemia [R09.02] Dysphagia, unspecified type [R13.10] Gastroesophageal reflux disease, esophagitis presence not specified [K21.9] Order(s):COMPOUNDED PRESCRIPTIONPlease provide portable oxygen concentrator. [facility].Disp: 1 EachRfl: 0 SWALLOW EVALUATION [[id number]] Order #: [id number] CONSULT TO GASTROENTEROLOGY [9010] Order #: [id number]: 1 COMPOUNDED PRESCRIPTIONPlease do modified barium swallow. FAX results to [phone] Attn: Lucy Vinson PA-C.Disp: 1 EachRfl: 0 [...] TAKE 1 TABLET BY MOUTH THREE * WQBSIBNC-OKBPBIBIH-QZCZJCOQ 3* NITROFURANTOIN MACROCRYSTAL 1* ALBUTEROL SULFATE 2.5 [...] Will order portable oxygen concentrator. Send to [facility]. ?? 2. Morbid obesity, due [...] obtain CT chest and/or CXR results from [facility] in [place]. Visit Notes: >> Kelley Merissa BAUTISTA SatJun 07, 2017 2:49 PM Status: Signed Intake information documented in the prior visit with Meera Paniagua CRT today. Prescriptions ordered this encounter Disp Refills Start End COMPOUNDED PRESCRIPTION 1 Ea* 0 06/07/2017 Class: Print RX Sig: Please provide portable oxygen concentrator. [facility]. COMPOUNDED PRESCRIPTION 1 Ea* 0 06/07/2017 Class: Print RX Sig: Please do modified barium swallow. FAX results to [phone] Attn: Lucy Vinson PA-C. Medications Discontinued During [...] 06/07/17 PROGRESS Observed: 06/07/2017 Status: COMPLETED Source: [place] 2:58 PM [facility] REPOSITORY HNO ID: [id number] Author: Lucy Vinson Service: (none) Author Type: Physician Director Employee Communications Type: Progress Notes Filed: 06/07/2017 3:42 PM Note Text: [facility], 06/07/17: HPI: The patient is here for [...] my own saliva. Was recently evaluated at [facility] in [place], no swallow study. No diarrhea. Uro/TATTOO ARTIST: No dysuria, hesitancy, nocturia. Musculoskeletal: Hip pain. [...] 1 tablet twice daily. Continue Anoro Ellipta 62.08/02 1 puff once daily. Continue inhaled or nebulized albuterol up to every 4 hours as needed. Based on oximetry with ambulation today, you require 3 L supplemental oxygen at rest and 4 L supplemental oxygen with exertion. Will order portable oxygen concentrator. Send to [facility]. ?? 2. Morbid obesity, due [...] chest and/or CXR results from [facility] in [place]. ? - I re-addressed the pathophysiology of [...] acceptance of my answers. Lucy Vinson PA-C [facility] Respiratory [facility] Surgery [place] [address] [place] [address] CNOV Observed: 06/06/2017 Status: COMPLETED Source: [facility] 2:00 PM [facility] REPOSITORY Office Visit (GENSWS) JOÃODAMION ([id number]) 1945 F Date Time Provider Department 06/06/17 2:00 PM RIGOBERTO BAUER During your visit today, we recorded the following information about you: Pulse Blood pressure Weight 84/minute 160/78 111.6 kg Rigoberto Bauer MD 06/08/2017 6:35 AM Signed FOLLOW UP VISIT - POST OP NAME: Damion Moyer [facility] NO.: [id number] DATE OF SERVICE: June 06, 2017 : [...] Negative for malignancy in the sections examined. LISETH:keith 12/05/16 The patient currently notes she is [...] to your office visit today with the [facility] General Surgeons. Please return for follow up in the office after mammogram and ultrasound studies have been completed. If you note any additional difficulties, questions, or concerns, you should contact our office immediately @ [phone] and ask to be transferred to the General Surgery department. Referring Provider: RIGOBERTO BAUER [[id number]] Allergies As of Date: 06/06/2017 Noted Allergy [...] left upper quadrant [R19.02] Breast pain [N64.4] Order(s):[facility] DIAGNOSTIC BILAT [[id number]] Order #: [id number] [facility] [employer] BREAST LTD LT [[id number]] Order #: [id number] [facility] [employer] BREAST LTD RT [[id number]] Order #: [id number] FUTURE gabapentin (NEURONTIN) 100 mg capsuleTake 1 [...] MOUTH THREE * FREESTYLE LANCETS 28 GAUGE [id number]-[id number]-[id number] 3* NITROFURANTOIN MACROCRYSTAL 1* X PREDNISONE 20 [...] to your office visit today with the [facility] General Surgeons. Please return for follow up in the office after mammogram and ultrasound studies have been completed. If you note any additional difficulties, questions, or concerns, you should contact our office immediately @ [phone] and ask to be transferred to the General Surgery department. Prescriptions ordered this encounter Disp Refills Start End GABAPENTIN 100 MG CAPSULE 90 c* 0 06/06/2017 07/06/2017 Route: ORAL Sig: Take 1 capsule by mouth three times daily for 30 days. Encounter Status:Closed by RIGOBERTO BAUER MD on 06/08/17 ISTAT TROPONIN I Collected: 05/26/2017 Status: F Source: [facility] 6:40 PM [place] ([place] REPOSITORY TYPE CODE TESTS RESULT OUT OF REFERENCE UNITS RANGE LAB ITRO 0-0.08 ng/mL ISTAT TROPONIN <0.02 I Performed By: #### ITROT, ACBC, CMPF, LIPA2 #### Testing performed at [address] [place] [address] CBC Collected: 05/26/2017 Status: F Source: [facility] [employer] 6:40 PM [place] ([place] REPOSITORY TYPE CODE [...] ACBC, CMPF, LIPA2 #### Testing performed at [address] [address] CMP FASTING Collected: 05/26/2017 Status: F Source: [employer] 6:40 PM [place] ([place] REPOSITORY TYPE CODE [...] LAB GFRB ml/min/1.73 sq.m EST. GFR, >60 [place] LAB GFRCOM GFR Information Average GFR for [...] ACBC, CMPF, LIPA2 #### Testing performed at [address] [address] LIPASE,SERUM Collected: 05/26/2017 Status: F Source: [facility] 6:40 PM SYSTEM ([place]) REPOSITORY TYPE CODE TESTS RESULT OUT OF RANGE REFERENCE UNITS LAB LIPA2 23-300 U/L 37 LIPASE,SERUM Performed By: #### ITROT, ACBC, CMPF, LIPA2 #### Testing performed at [address] [address] URINE MACROSCOPIC Collected: 05/26/2017 Status: F Source: [facility] 6:04 PM [place] REPOS[place]ORY TYPE [...] #### UMAC, UMIC #### Testing performed at [address] [address] URINE MICROSCOPIC Collected: 05/26/2017 Status: F Source: [facility] 6:04 PM [place] REPOS[place] TYPE [...] #### UMAC, UMIC #### Testing performed at [address] [address] PROGRESS Observed: 05/24/2017 Status: COMPLETED Source: [facility] 5:15 PM [facility] REPOSITORY O ID: [id number] Author: Cristin Sloan [facility] Service: (none) Author Type: Registered Nurse Type: Progress Notes Filed: 05/27/2017 12:29 PM Note Text: PRIMARY CARE COORDINATION IN OFFICE VISIT WITH PCP Patient has been identified by name and date of . PCP Assessment/Plan: Pt says meter not working, not checking, needs new one. Given new Freestyle Meter in the office. She is seeing a psych group in [place] who provides her Sertraline, Risperdal and Trazodone. [...] She had appt w/Dr. 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 She does her own shopping and enc [...] is changing insurances again on 06/09 to /BS. She acts very confused and can't remember anything . She is very depressed about her daughter Linda moving to a jail. She is apparently doing well there but [...] Call: Next week. Cristin Abad RN Ambulatory [facility] May 24, 2017 PROGRESS Observed: 05/24/2017 Status: COMPLETED Source: [facility] 3:34 PM [facility] REPOSITORY O ID: [id number] Author: Jesus Fong Service: (none) Author Type: [...] daughter who had to move into a jail after she and her . Marital conflicts ('s latter day and the way he talked down to her noted). Living in [place] so cannot visit daughter often since does [...] TIMES DAILY. FREESTYLE LANCETS 28 gauge misc PUSNUYII-ZXZMQHUBE-JKZSGWOT 3.5 MG/ML-10,000 UNIT/ML-0.1% EYE DROPS nitrofurantoin (MACRODANTIN) [...] Trospium (SANCTURA SR) 60 mg cp24 Insulin [place], Disposable, (BD ULTRAFINE III MINI PEN) 31 [...] complication, without long-term current use of insulin ([facility]) E11.9 HB A1C B/O 4. COPD, moderate ([facility]) J44.9 montelukast (SINGULAIR) 10 mg tablet albuterol HFA (VENTOLIN HFA) 90 mcg/actuation inhaler 5. Morbid obesity ([facility]) E66.01 6. Mixed hyperlipidemia E78.2 7. Visit for screening mammogram Z12.31 [facility] SCREENING 8. Essential hypertension I10 9. Acquired hypothyroidism E03.9 10. DDD (degenerative disc disease), lumbar M51.36 Patient seen with Director Of Rehabilitation, Cristin Travis. Above issues addressed with patient. [...] her daughter who now lives in a jail; not able to visit very often because of distance. Ongoing pain issues. Continue present management. Continues on Zoloft for anxiety and depression symptoms. POC HgA1C 6.9--Continue present management. The majority of the visit was spent counseling and/or coordinating care for the patient. Rjew-hh-uoxm time was at least 25 minutes. Jesus Fong MD CNOV Observed: 05/24/2017 Status: COMPLETED Source: [facility] 2:20 PM [facility] REPOSITORY Office Visit (INTMWS) DAMION MOYER ([id number]) 1945 F Date Time Provider Department 05/24/17 2:20 PM JESUS FONG INTMWS During your visit today, we recorded the following information about you: Pulse Respiration Blood pressure Weight 84/minute 20/minute 142/82 112 kg Jeuss Fong MD 06/05/2017 11:13 PM Signed Patient presents with: Recheck SUBJECTIVE: Damion Moyer is a 72 year old year old lady here today for follow up appointment for review of medical conditions. Patient seen with Cristin Travis. Aware of hardship for patient living away from her daughter who had to move into a jail after she and her . Marital conflicts ('s latter day and the way he talked down to her noted). Living in [place] so cannot visit daughter often since does [...] TIMES DAILY. FREESTYLE LANCETS 28 gauge misc PAHCDMJW-MKHZCBGXV-IDLMQNYZ 3.5 MG/ML-10,000 UNIT/ML-0.1% EYE DROPS nitrofurantoin (MACRODANTIN) [...] Trospium (SANCTURA SR) 60 mg cp24 Insulin [place], Disposable, (BD ULTRAFINE III MINI PEN) 31 [...] complication, without long-term current use of insulin ([facility]) E11.9 HB A1C B/O 4. COPD, moderate ([facility]) J44.9 montelukast (SINGULAIR) 10 mg tablet albuterol HFA (VENTOLIN HFA) 90 mcg/actuation inhaler 5. Morbid obesity ([facility]) E66.01 6. Mixed hyperlipidemia E78.2 7. Visit for screening mammogram Z12.31 [facility] SCREENING 8. Essential hypertension I10 9. Acquired hypothyroidism E03.9 10. DDD (degenerative disc disease), lumbar M51.36 Patient seen with Director Of Rehabilitation, Cristin Travis. Above issues addressed with patient. [...] her daughter who now lives in a jail; not able to visit very often because of distance. Ongoing pain issues. Continue present management. Continues on Zoloft for anxiety and depression symptoms. POC HgA1C 6.9--Continue present management. The majority of the visit was spent counseling and/or coordinating care for the patient. Hill-nz-pmue time was at least 25 minutes. Jesus [...] Date Reviewed: 05/24/2017 Reviewed by: Jon Pisano Post Framer - Fully Assessed Reason for Visit: Recheck [...] disease), lumbar [M51.36] Immunodeficiency disorder (HCC) [D84.9] Order(s):[facility] SCREENING [[id number]] Order #: [id number] FUTURE ketoconazole (NIZORAL) 2 % shampooCleanse scalp [...] directedDisp: 30 gRfl: 2 HB A1C B/O [[id number]] Order #: [id number] HEMOGLOBIN A1C (POC) [[id number]] Order #: [id number]. #:[id number] Prescriptions as of 05/24/2017 Sig: KETOCONAZOLE 2 [...] MOUTH THREE * FREESTYLE LANCETS 28 GAUGE DPESQVTM-ENVGXNACF-HUWCMVOC 3* NITROFURANTOIN MACROCRYSTAL 1* PREDNISONE 20 MG [...] vascular acc* COMPOUNDED PRESCRIPTION Bipap Replacement. and * MULTIVITAMIN TABLET Take 1 tablet by mouth [...] ALBUTEROL SULFATE HFA 90 MCG/ACTUATI* 1 In* 05/24/2017 Route: INHALATION Sig: Inhale 2 Puffs [...] Status:Closed by JESUS FONG MD on 06/05/17 VARUN Observed: 05/24/2017 Status: COMPLETED Source: [facility] 12:00 AM [facility] REPOSITORY Patient Outreach (INTMWS) DAMION MOYER ([id number]) 1945 F Date Time Provider Department 05/24/17 [...] She is seeing a psych group in [place] who provides her Sertraline, Risperdal and Trazodone. [...] She had appt w/Dr. 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 She does her own shopping and enc [...] about her daughter Linda moving to a jail. She is apparently doing well there but pt is lonely. She has aides coming 5 days/wk 3 hrs daily usually 9-12 so meals available. She gets Mom's Meals but states she is getting tired of them, but that is what is covered by her [facility]. She has availability to cook at home or have aides do so but states they do not. Next Office Visit: 09/04/2017 Plan For Next Call: Next week. Cristin Abad hotel concierge [facility] May 24, 2017 Allergies As of Date: [...] Date Reviewed: 05/24/2017 Reviewed by: Jon Pisano Post Framer - Fully Assessed Reason for Visit: [facility] Chronic Care [5636] Prescriptions as of 05/24/2017 Sig: KETOCONAZOLE 2 [...] MOUTH THREE * FREESTYLE LANCETS 28 GAUGE [id number]-KVNPDQXTI-HDCJIPYJ 3* NITROFURANTOIN MACROCRYSTAL 1* PREDNISONE 20 MG [...] ALBUMIN/CREAT RATIO Collected: 05/08/2017 Status: F Source: [facility] 2:49 PM [facility] REPOSITORY TYPE CODE TESTS RESULT OUT OF [...] 1995, 25:107) Performed By: #### UACR #### [facility] [address] [address] [facility] CBCDIF Collected: 05/08/2017 Status: F Source: [facility] (FOR [facility] USE ONLY) 2:46 PM [facility] REPOSITORY TYPE CODE TESTS RESULT OUT [...] Low Abs Lymph 0.67 LAB AMONO % [place]% 3.5 LAB AAMONO <0.87 k/uL Abs [place] 0.32 LAB AEOS % Eosin% 0.2 LAB AAEOS <0.46 k/uL Abs Eosin <0.03 LAB ABASO % Baso% 0.1 LAB AABASO <0.11 k/uL Abs Baso <0.03 RETICULOCYTE Collected: 05/08/2017 Status: F Source: [facility] 2:45 PM [facility] REPOSITORY TYPE CODE TESTS RESULT OUT OF REFERENCE UNITS RANGE LAB RETC 0.4-2.0 % High Retic% 2.4 LAB ABRET 0.0180-0.1000 M/uL High Abs Retic 0.101 Performed By: #### RETIC, IRON, FERR #### [place] [address] [place] [address] IRON AND TIBC Collected: 05/08/2017 Status: F Source: [facility] 2:45 PM [facility] REPOSITORY TYPE CODE TESTS RESULT OUT OF REFERENCE UNITS RANGE LAB IRN 41-186 ug/dL Low Iron 39 LAB TIBC 232-386 ug/dL TIBC 337 LAB SAT 15-57 % Low Transferrin Saturatn 12 Performed By: #### RETIC, IRON, FERR #### [place] [address] [place] [address] FERRITIN Collected: 05/08/2017 Status: F Source: [facility] 2:45 PM [facility] REPOSITORY TYPE CODE TESTS RESULT OUT OF REFERENCE UNITS RANGE LAB FERR 14.7-205.1 ng/mL Ferritin 65.9 Performed By: #### RETIC, IRON, FERR #### [place] [address] LIPID PANEL, BASIC Collected: 05/08/2017 Status: F Source: [facility] 2:45 PM [facility] REPOSITORY TYPE CODE TESTS RESULT OUT [...] Desk Reference: National Heart, Lung, and Blood [facility]. National Institutes of Health. 2001: NIH Publication No. 01-3305. 2. An International Atherosclerosis Society position paper: global recommendations for the management of dyslipidemia: executive summary, Atherosclerosis. 2014: 232(2):410-413. Performed By: #### LIPB #### [facility] [address] [address] COMP METABOLIC PANEL Collected: 05/08/2017 Status: F Source: [facility] 2:45 PM [facility] REPOSITORY TYPE CODE TESTS RESULT OUT OF REFERENCE UNITS RANGE LAB TP 6.3-8.0 g/dL Protein, Total 7.1 LAB ALB 3.9-4.9 g/dL Albumin 4.2 LAB CA 8.5-10.2 mg/dL Calcium, Total 9.4 LAB TBIL 0.2-1.3 mg/dL Bilirubin, Total 0.7 LAB ALKP 32-117 U/L Alkaline High Phosphatase 118 LAB AST 13-35 U/L AST 23 LAB GLU 74-99 mg/dL Glucose High 179 Result Comment: The [place] Diabetes Association (ADA) provides guidance for cutoff [...] Standards of Medical Care in Diabetes 2016, [place] Diabetes Association. Diabetes Care. 2016.39(Suppl 1). LAB [...] actual GFR. Performed By: #### CMP #### [facility] [place] [address] [id number] CNPTOUTREACH Observed: 05/07/2017 Status: COMPLETED Source: [facility] 12:00 AM [facility] REPOSITORY Patient Outreach (INTMWH) DAMION MOYER ([id number]) 1945 F Date Time Provider Department 05/07/17 [facility] During your visit today, we recorded the [...] Order(s):ALBUMIN/CREAT RATIO RND UR [SQUACR] Order #: [id number] FUTURE LIPID PANEL BASIC [SQLIPB] Order #: [id number] FUTURE Prescriptions as of 05/07/2017 Sig: GENTAMICIN [...] hemorrhage or perforation*INVALID FOR* Encounter Status:Closed by [place] L[facility] on 12/20/17 CBC Collected: 05/05/2017 Status: F Source: [facility] 3:26 PM [place] ([place] REPOSITORY TYPE CODE [...] ACBC, CMPF, ITROT #### Testing performed at [address] [place] [address] CMP FASTING Collected: 05/05/2017 Status: F Source: [employer] 3:26 PM [place] REPOSITORY TYPE CODE [...] inappropriate age/gender/creatini ne value. Performed By: #### MERNA KERNS, ITROT #### Testing performed at [address] [address] ISTAT TROPONIN I Collected: 05/05/2017 Status: F Source: [facility] [employer] 3:26 PM [place] ([place]) REPOSITORY TYPE CODE TESTS RESULT OUT OF REFERENCE UNITS RANGE LAB ITRO 0-0.08 ng/mL ISTAT TROPONIN <0.02 I Performed By: #### MERNA KERNS, FRANCISCO JAVIEROT #### Testing performed at [address] [address] XR CHEST AP PORTABLE Observed: 05/05/2017 Status: F Source: [facility] [employer] 3:14 PM [place] ([place] REPOSITORY EXAM: XR CHEST AP PORTABLE REASON [...] warranted.. PROGRESS Observed: 04/11/2017 Status: COMPLETED Source: [facility] 7:28 PM [facility] REPOSITORY HNO ID: [id number] Author: Chasity Patterson III Service: (none) Author [...] MD PROGRESS Observed: 04/11/2017 Status: COMPLETED Source: [facility] 2:14 PM [facility] REPOSITORY HNO ID: [id number] Author: Lucy Vinson Service: (none) Author Type: Physician Director Employee Communications Type: Progress Notes Filed: 04/11/2017 2:59 PM Note Text: [facility] HPI: The patient is here for follow up of COPD. Since the last visit 10/02/16, the patient has was treated in several different times for exacerbation. Patient treated with Prednisone and antibiotics. Ongoing stress at home with divorce and custody of MRDD daughter who was placed in jail in January 2017. Patient compliant with prescribed Rx. Anoro Ellipta 1 puff once daily, Azithromycin daily and Albuterol inhaler or nebulizer. Wears continuous 3 lpm O2 via nasal cannula Would like portable oxygen concentrator for ease of use. Consistently wears BiPAP. DME: [facility] in [place]. Daily dry cough. Reports tickle in throat. No hemoptysis. No pleuritic chest pain. Variable wheezing. Exertional dyspnea. PMH changes: Reviewed with patient today. Updated. FAMH changes: Reviewed with patient today. No changes. SOCH changes: No changes. ROS: GEN: Appetite good. Weight increased since daughter was court mandated to live in jail. ENT: Blurry vision since getting new glasses. [...] nodules on CT. CT of the chest 06/02/17 showed new clusters of bronchocentric nodules in [...] acceptance of my answers. Lucy Vinson PA-C [facility] [address] [place] [address] CBC AND DIFFERENTIAL Collected: 04/08/2017 Status: F Source: [facility] 4:38 PM [facility] REPOSITORY TYPE CODE TESTS RESULT OUT OF [...] k/uL Abs Lymph 1.65 LAB AMONO % [place]% 6.3 LAB AAMONO <0.87 k/uL Abs [place] 0.69 LAB AEOS % Eosin% 1.9 LAB AAEOS <0.46 k/uL Abs Eosin 0.21 LAB ABASO % Baso% 0.5 LAB AABASO <0.11 k/uL Abs Baso 0.05 LAB AUNRBC 0 /100 WBC NRBCs 0.0 LAB ABNRBC <0.01 k/uL Absolute nRBC <0.01 LAB DTYP DTYPE Auto Diff Performed By: #### CBCDIF #### [facility] [address] [place], [place] [address] PROGRESS Observed: 04/08/2017 Status: COMPLETED Source: [facility] 4:08 PM [facility] REPOSITORY HNO ID: [id number] Author: Chasity Patterson III Service: (none) Author Type: Physician Type: Progress Notes Filed: 04/08/2017 8:12 PM Note Text: SUBJECTIVE: This is a 71 year old female that is here today for ER Follow Up. 04/04 in [place], [place]. Passed clots of blood per rectum. [...] anemia under care of Dr Ambrose in [place]. Taking iron supplements since perhaps last spring. [...] from her in hopes to move from [place] back to [place] following the legal procedures. She is a [...] needles, DISPOSABLE, (PEN NEEDLE) 31 gauge x 5/16 ndle Use one needle for each dose, [...] PCP regarding placement of an old glucometer Chasity Patterson III MD CNOV Observed: 04/08/2017 Status: COMPLETED Source: [facility] 3:00 PM [facility] REPOSITORY Office Visit (FAMPWS) JOÃODAMION ([id number]) 1945 F Date Time Provider Department 04/08/17 3:00 PM CHASITY PATTERSON IIIPWS During your visit today, we recorded the following information about you: Pulse Respiration Blood pressure Weight 74/minute 16/minute 132/62 108.9 kg Chasity Patterson III MD 04/08/2017 8:12 PM Signed SUBJECTIVE: This is a 71 year old female that is here today for ER Follow Up. 04/04 in [place]. Passed clots of blood per rectum. [...] anemia under care of Dr Ambrose in [place]. Taking iron supplements since perhaps last spring. [...] from her in hopes to move from [place] back to [place] following the legal procedures. She is a [...] Itching Date Reviewed: 04/08/2017 Reviewed by: Naila ([facility]) NELL Krause - Fully Assessed Reason for Visit: Hospital Follow Up [177] Cmt: Rommel in [place] Primary Visit Diagnosis:On home oxygen therapy [Z99.81] [...] J96.12] Order(s):CBC + DIFF [SQCBCDIF] Order #: [id number] FUTURE Prescriptions as of 04/08/2017 Sig: CIPROFLOXACIN [...] Chasity Patterson III MD Encounter Status:Closed by LEONARDO HERNÁNDEZ, CHASITY Cobos MD on 04/08/17 OBSOLETE Observed: 04/07/2017 Status: COMPLETED Source: [facility] 12:00 AM [facility] REPOSITORY Refill (INTMWS) DAMION MOYER ([id number]) 1945 F Date Time Provider Department 04/07/17 JESUS FONG INTMWS During your visit today, we recorded the following information about you: Jon Pisano Post Framer 04/08/2017 3:59 PM Signed Patient has been identified by name and date of : Yes Pharmacy phones for refill(s): Pending Prescriptions Disp Refills BD INSULIN PEN NEEDLE UF MINI 31 GAUGE X 3/16ANDquot; 11 Sig: USE ONE NEEDLE FOR EACH DOSE 6 TIMES DAILY QUYEN: Yes Date of last office visit in primary care: 11/23/16 Alize Older, GARETT Last 2 Encounter Wt Readings: Date: Wt: 04/08/2017 108.9 kg (240 lb) 02/22/2017 111.8 kg (246 lb 8 oz) Previous labs/tests for medication: Diabetes: Hemoglobin A1C (%) Date Value 11/23/2016 6.2 2016 6.2 Please advise. Thank you. Jon Fong MD 04/09/2017 12:57 PM Signed Okayed [...] Status:Closed by JON PISANO CMA on 04/09/17 ALLERGIES ALLERGIES DATE TYPE / CODE NAME / CODE REACTION SEVERITY SOURCE 03/31/19 Drug promethazine Nausea Unknown [place] [facility] Allergy/944360259 HCl/[id number](RXNO [facility] (SNOMED CT) ) Hospital Repository 03/31/19 Drug amoxicillin Hives Unknown [place] 19 Allergy/982544264 trihydrate/V9402911 [facility] (SNOMED CT) 07(RXNORM) Hospital Repository 03/31/19 Drug potassium Hives Unknown [place] 19 Allergy/291685973 clavulanate/N012527 [facility] (SNOMED CT) 809(RXNORM) Hospital Repository 03/31/19 Drug Metronidazole Hives Unknown [place] [facility] Allergy/105974417 HCl/L870981571(RXNO [facility] (SNOMED CT) ) Hospital Repository 03/31/19 Drug diphenhydramine i could crawl Unknown [place] 19 Allergy/359321728 HCl/O659735457(RXNO to the ceiling [facility] (SNOMED [facility]) ) Hospital Repository 03/31/19 Drug Penicillins/Z752714 Hives Unknown [place] 19 Allergy/315412397 476(RXNORM) [facility] (SNOMED CT) Hospital Repository 03/31/19 Drug Latex, Natural Rash Unknown [place] 19 Allergy/473401732 Rubber/L574593561(R [facility] (SNOMED CT) XNORM) Hospital Repository 03/31/19 Drug sulfamethoxazole/F0 Hives Unknown [place] 19 Allergy/752478384 16348007(RXNORM) [facility] (SNOMED CT) Hospital Repository 03/31/19 Drug trimethoprim/N70300 Hives Unknown [place] 19 Allergy/344574449 2873(RXNORM) [facility] (SNOMED CT) Hospital Repository 03/31/19 Drug metronidazole/F0060 Hives Unknown [place] 19 Allergy/308937785 73920(RXNORM) [facility] (SNOMED CT) Hospital Repository 03/31/19 Drug adhesive/[id number] Itching Unknown [place] 19 Allergy/478617284 (RXNORM) [facility] (SNOMED CT) Hospital Repository 03/31/19 Drug adhesive Rash Unknown [place] 19 Allergy/182430776 tape/M857494470(RXN [facility] (SNOMED CT) ORM) Hospital Repository 03/31/19 Drug omeprazole/K8102570 Nausea Unknown [place] 19 Allergy/303448424 76(RXNORM) [facility] (SNOMED CT) Hospital Repository 03/31/19 Drug latex/L090448002(RX Rash Unknown [place] 19 Allergy/212095917 NORM) [facility] (SNOMED CT) Hospital Repository 03/31/19 Miscellaneous antihistamine i could crawl Unknown [place] 19 Allergy/946314067 to the ceiling [facility] (SNOMED CT) Hospital Repository 03/31/19 Miscellaneous cat scan dye Anaphylaxis Unknown [place] 19 Allergy/684807543 [facility] (SNOMED CT) Hospital Repository 04/24/19 DRUG/309760811(SN AMOXICILLIN-POT [place] [address]) CLAVULANATE Three Repository 04/24/19 DRUG DIPHENHYDRAMINE [place] [address] INGREDI/363557907 Three (SNOMED CT) Repository 04/24/19 DRUG LATEX [place] [address] INGREDI/617988139 Three (SNOMED CT) Repository 04/24/19 DRUG PROMETHAZINE [place] [address] INGREDI/823468396 Three (SNOMED CT) Repository 10/11/[address]: IODINATED Anaphylaxis High [facility] 16 Class/[id number](S CONTRAST- ORAL AND Three NOMED CT) IV DYE Repository 10/11/19 Drug IODINATED CONTRAST- ANAPHYLAXIS Formerly [facility] 16 Class/[id number](S ORAL AND IV DYE Clinic Main NOMED CT) [place] Repository 11/05/19 DRUG/[id number](SN SULFAMETHOXAZOLE-TR Hives [facility] [address]) IMETHOPRIM Three Repository 11/05/19 DRUG/[id number](SN SULFAMETHOXAZOLE-TR HIVES Formerly [facility] [address]) IMETHOPRIM Clinic Main [place] Repository 09/18/19 DRUG PROMETHAZINE [facility] 14 INGREDI/[id number] Clinic Main (SNOMED CT) [place] Repository 08/26/19 DRUG METRONIDAZOLE Hives Med [facility] 13 INGREDI/[id number] Three (SNOMED CT) Repository 08/26/19 DRUG METRONIDAZOLE HIVES [facility] 13 INGREDI/[id number] Clinic Main (SNOMED CT) [place] Repository 03/14/19 DRUG DIPHENHYDRAMINE HCL OTHER: SEE C Chandler 13 INGREDI/[id number] Clinic Main (SNOMED CT) [place] Repository 03/24/19 Drug ADHESIVE Itching Low [facility] 11 Class/[id number](S Three NOMED CT) Repository 03/24/19 DRUG ADHESIVE RASH [facility] 11 INGREDI/[id number] [facility] Main (SNOMED CT) [place] Repository 12/16/19 DRUG/[id number](SN AMOXICILLIN-POT HIVES Formerly [facility] [address]) CLAVULANATE [facility] Main [place] Repository 12/16/19 Drug ANTIHISTAMINES Mental Chg [facility] 05 Class/[id number](S [facility] Main NOMED CT) [place] Repository 12/16/19 Environ/[id number] LATEX RASH [facility] 05 (SNOMED CT) [facility] [place] Repository ENCOUNTERS ENCOUNTERS ADMIT/DISCHARGE ACCOUNT NUMBER ADMITTING ENCOUNTER LOCATION SOURCE CLASS 03/31/2018/03/31/19 [id number] Emergency [address] ding:ED Repository 03/31/[id number] [facility] ding:SDC Repository 03/19/2018/03/19/19 [id number] Ambulatory [address] Repository 03/19/2018/03/19/[id number] Repository 03/13/2018/03/13/19 [id number] Emergency [address] ding:ED Repository 02/21/2018 [id number] Ambulatory [address] [place] [address] ([place]) Repository 02/20/[id number] [facility] ding:RAD.FUT Repository URE 02/20/2018/02/21/20 [id number] Ambulatory [address] [place] Repository 02/17/2018/02/18/20 [id number] Emergency BBuilding:JUSTICE Bright [address] [place] [address] Repository 02/12/2018/02/13/[id number] Main [place] Repository 02/12/2018/02/13/20 [id number] [place] [address] [facility] Main [place] Repository 01/28/2018/01/30/20 [id number] Ambulatory [place] 18 [facility] Main [place] Repository 01/28/2018/01/30/20 [id number] Ambulatory [place] 18 [facility] Main [place] Repository 01/27/2018/01/30/20 [id number] Ambulatory [place] 18 [facility] Main [place] Repository 01/21/2018/01/22/20 [id number] Ambulatory [place] 18 [facility] Main [place] Repository 01/13/[id number] [facility] ding:LABSPEC Repository 01/02/2018/01/04/20 [id number] Ambulatory [place] 18 [facility] Main [place] Repository 01/02/2018/01/03/20 [id number] Ambulatory [address] Main [place] Repository 01/02/2018/01/04/20 [id number] Ambulatory [address] Main [place] Repository 01/02/2018/01/04/20 [id number] Ambulatory [address] Main [place] Repository 12/26/2017/12/27/19 [id number] Emergency BBuilding:[address] Repository 12/25/2017/12/26/19 [id number] Ambulatory [place] 18 [facility] Main [place] Repository 12/25/2017/12/26/19 [id number] Ambulatory [address] Main [place] Repository 12/24/[id number] [facility] ding:LABSPEC Repository 12/24/2017/01/07/20 [id number] Ambulatory [address] Main [place] Repository 12/18/2017/12/20/19 [id number] Ambulatory [address] Main [place] Repository 12/18/2017/12/19/19 [id number] Ambulatory BMSBuilding: [place] 18 BMS.[facility] Repository 12/12/[id number] [facility] ding:OLS.WHL Repository TCC 12/05/[id number] [facility] ding:OLS.WHL Repository TCC 11/28/[id number] [facility] ding:OLS.WHL Repository TCC 11/22/2017/09/18 [id number] BREANN REGALADO., Inpatient BBuilding:MS Kvng Lin MD. TIERNEY Tompkins Gloria URRoom: Health 0222Bed: A [facility] Repository 11/22/2017 [id number] Ambulatory [address]in[address] [place] [address] System ([place]) Repository 11/18/2017/11/21/19 [id number] Harley, Ambulatory [place] [address] Hospital ding:VR1Ngpe Repository : QV066Ngk: 1 11/18/2017 [id number] Cricket, Ambulatory BMSBuilding: [place] Dano BMS.[facility] Repository 11/18/2017 [id number] Cricket, Ambulatory BMSBuilding: [place] Dano BMS.[facility] Repository 11/18/2017 [id number] Cricket, Ambulatory BMSBuilding: [place] Dano BMS.[facility] Repository 11/18/2017/11/19/19 [id number] Ambulatory [address] Repository 11/18/2017/11/20/19 [id number] Ambulatory [address] Repository 11/14/2017/11/15/19 [id number] Ambulatory [address] Repository 11/14/2017/11/15/19 [id number] Ambulatory [address] Repository 11/14/2017/11/15/19 [id number] Ambulatory [address] Repository 11/14/2017/11/15/19 [id number] Ambulatory [address] Repository 11/06/2017/11/07/19 [id number] Emergency [address] [place] [address] DRoom: System ([place]) X729Ayw: Repository E014 11/05/2017/11/06/19 [id number] Ambulatory [place] 18 [facility] Main [place] Repository 11/01/2017/11/13/19 [id number] Ambulatory [place] 18 [facility] Main [place] Repository 11/01/2017/11/06/19 [id number] Ambulatory [address] Main [place] Repository 10/28/2017/10/31/19 [id number] Ambulatory [address] Main [place] Repository 10/24/2017/10/25/19 [id number] Ambulatory [address] Main [place] Repository 10/24/2017/11/07/19 [id number] Ambulatory [place] [address] Clinic Main [place] Repository 10/17/2017/10/19/19 [id number] Ambulatory [address] Main [place] Repository 10/16/2017/10/18/[id number] Augustus Ambulatory [place] [address] Osbaldo J lding:B38 Arabella Cavanaugh LabRoom: B38 [facility] 3803Bed: B38 Repository [id number] 10/11/2017/10/12/19 [id number] Emergency [place] [address] [place] [address] ding:ED Repository 10/11/2017/10/15/19 [id number] Ambulatory [address] Main [place] Repository 10/03/2017 [id number] Ambulatory [address]in[address] [place] [address] ([place]) Repository 09/09/2017/09/11/19 [id number] Ambulatory [address] Main [place] Repository 09/04/2017/09/06/19 [id number] Ambulatory [address] Main [place] Repository 08/28/2017/08/29/19 [id number] Joaquina Goldman [place] [address] [address] Gutierrez lding:B23 Doug Boogiebunny Cavanaugh m: B23 [facility] 2303Bed: B23 Repository [id number] 08/28/2017 [id number] Joaquina Goldman [facility] Dr. Matt Durán and Mikayla Afshan [facility] Repository 08/13/2017/08/15/19 [id number] Ambulatory [address] Main [place] Repository 08/13/2017/08/15/19 [id number] Ambulatory [address] [place] Repository 08/13/2017/08/14/19 [id number] Ambulatory [address] Main [place] Repository 08/11/2017/08/12/[id number] Jm Emergency [address] S lding:Jimmy Cavanaugh DeptRoom: [facility] A1E V9TUNqv: Repository A1E A1EH12 07/30/2017/08/01/19 [id number] Ambulatory [address] Main [place] Repository 07/29/2017/08/01/19 [id number] Ambulatory [address] Main [place] Repository 07/29/2017 [id number] Ambulatory BMSBuilding: [place] BMS.[facility] Repository 07/29/2017/07/31/19 [id number] Ambulatory [address] Repository 07/26/2017/07/31/19 [id number] Ambulatory [address] Repository 07/20/2017/07/23/[id number] Valente Ambulatory [place] [address] Cristian Maria lding:A20B [place] [facility] A[facility]B [facility] 2010Bed: Repository A20B 07/17/2017/07/18/[id number] Valente Emergency [place] [address] Cristian Maria lding:A1E [place] [facility] DeptRoom: [facility] A1E H7CWIuf: Repository A1E A1ED04 07/16/2017/07/17/19 [id number] Emergency [address] [place] [address] DRoom: [place] ([place]) Y991Tbh: Repository E008 07/16/2017/07/18/19 [id number] Ambulatory [address] Repository 07/16/2017/07/17/19 [id number] Ambulatory [address] Repository 07/12/2017/07/17/19 [id number] Ambulatory [address] Repository 07/12/2017 [id number] Ambulatory BuildinP [employer] ([place]) Repository 07/10/2017 [id number] Ambulatory BuildinS [employer] ([place]) Repository 07/02/2017 [id number] Ambulatory [facility] Repository 06/26/2017 [id number] Ambulatory BMSBuilding: [place] BMS.[facility] Repository 06/26/2017 [id number] Ambulatory BuildinC [employer] ([place]) Repository 06/25/2017/06/26/19 [id number] Ambulatory [address] Repository 06/25/2017/06/26/19 [id number] Ambulatory [address] Repository 06/25/2017/06/27/19 [id number] Ambulatory [address] Repository 06/24/2017 [id number] Ambulatory BMS [facility] Repository 06/20/2017 [id number] Ambulatory BMSBuilding: [place] BMS.[facility] Repository 06/20/2017 [id number] Ambulatory BMSBuilding: [place] BMS.[facility] Repository 06/19/2017/06/20/19 [id number] Emergency [address] [place] [address] DRoom: [place] ([place]) N192Kck: Repository E015 06/19/2017 [id number] Ambulatory Buildin [employer] System ([place]) Repository 06/13/2017/06/14/19 [id number] Ambulatory Building:[place] [address] [facility] MB Repository 06/12/2017 [id number] Ambulatory Buildin [employer] System ([place]) Repository 06/07/2017/06/20/19 [id number] Ambulatory [address] Repository 06/07/2017/06/20/19 [id number] Ambulatory [address] Repository 06/06/2017/06/20/19 [id number] Ambulatory [address] Repository 05/26/2017/05/27/19 [id number] Emergency [address] [place] [address] DRoom: [place]) EHLBBed: Repository EHLB 05/24/2017/05/25/19 [id number] Ambulatory [address] Repository 05/08/2017 [id number] Ambulatory [address] [place] [address] [employer] System ([place]) Repository 05/08/2017/05/10/19 [id number] Ambulatory [address] Repository 05/05/2017/05/05/19 [id number] Emergency [address]in[address] [place] [address] DRoom: [place]) G811Nwk: Repository E010 04/11/2017/04/11/19 [id number] Ambulatory [address] Repository 04/08/2017/04/08/19 [id number] Ambulatory [address] Repository 04/08/2017/04/10/19 [id number] Ambulatory [address] Repository PAYERS PAYERS ENCOUNTER GUARANTOR PAYER SUBSCRIBER SOURCE 03/31/2018 DAMION Alejandro Primary DAMION Vizcaino [id number] Insurance:[facility] KEETONDOB: [facility] [address] *IN [facility] [id number] Number: Repository [address]Qcj: 330 [id number] [phone] (HP) Date:3171-03-85XAOM CLAIMS DEPTPO [address] [place] [address]YM: 03/31/2018 Secondary NOT GIVENUNK [place] Insurance:SELF PAY [facility] Number: Effective Repository Date:2018-03-31 03/31/2018 LAVONNE Primary LAVONNE [place] [id number] Insurance:MYCARE CRSC KEETONDOB: Community [address] *IN [facility] [id number] Number: Repository [address]Iin: 330 [id number] [phone] (HP) Date:5998-39-96KGPA [facility]S [facility] [address] [address]VN: 03/31/2018 Secondary NOT GIVENUNK [place] Insurance:SELF PAY [facility] Number: Effective Repository Date:2018-03-24 03/13/2018 LAVONNE Primary LAVONNE [place] [id number] Insurance:MYCARE CRSC KEETONDOB: Community [address] *IN [facility] [id number] Number: Repository [address]Gxr: 330 [id number] [phone] (HP) Date:1788-84-59XBLI CLAIMS [facility] [address] [address]JL: 03/13/2018 Secondary NOT GIVENUNK [place] Insurance:SELF PAY [facility] Number: Effective Repository Date:2018-03-13 02/20/2018 LAVONNE Primary LAVONNE [place] [id number] Insurance:ANTHEM KEETONDOB: Community [address] MEDICARE SENIOR [id number] ADVANTAPoly Number: Repository [address]Chx: 330 [id number] [phone] (HP) Date:3431-93-69PI [address]UZS[address], [place] [address]ZR: 02/20/2018 Secondary LAVONNE [place] Insurance:MEDICAIDPol [facility] icy Number: [id number] Hospital [id number] Repository Date:2018-02-14 02/20/2018 Tertiary NOT GIVENUNK [place] Insurance:SELF PAY [facility] Number: Effective Repository Date:2018-02-14 02/17/2018 LAVONNE Primary [facility] [id number] Rep[address] Number: [address] [id number] [address] [address]~Tel: [phone]) Date:2018-02-17Tel: 1946Bnbi [address] ()Tel: (999) Name:N[address] B[address] () () [id number] [place] [address] 000-0000 () [address]IK: 02/17/2018 Secondary DAMION Bright Health Insurance:MEDICAID [facility]: [facility] [id number] Repository Number: [address] [id number] [address] Date:2018-02-17 28601Zbw: [phone] [phone] Name:VERONIKA HURSTO Box ()Tel: [phone]) [id number], [place] 000-0000 (WP) [address]BA: 01/13/2018 LAVONNE Primary LAVONNE [place] [id number] Insurance:[facility]: [facility] [address] MEDICARE SENIOR [id number] ADVANTAPolicy Number: Repository [id number]: 330 [id number] [phone] (HP) Date:4907-68-18CC [address] [place] [address]FR: 01/13/2018 Secondary LAVONNEFlavia Vizcaino Insurance:[facility]ID[facility] HospitalB: [facility] icy Number: [id number] Hospital [id number] Repository Date:2018-01-13 01/13/2018 Tertiary NOT GIVENUNK [place] Insurance:SELF PAY [facility] Number: Effective Repository Date:2018-01-13 12/26/2017 LAVONNE Primary DAMION Bright [facility]: Insurance:[facility]OSPITALABIGAILDOB: [facility] [id number] MEDIBLUE DUALSci[facility] [id number] Repository tom rdapt Number: [address] [id number] [address] [address]~Tel: (330) Date:2017-12-26 04803Gue: [id number] 600044 ()Tel: (999) Name:HECTORO BOX () () 670706FSRRSBD, [place] 000-0000 (WP) [address]ZD: 12/26/2017 Secondary DAMION [place] Insurance:MEDICAID [facility]: [facility] Number: [id number] Repository [id number] 6 tom rdapt Date:2017-12-26 - y7CDYMDYTNEWKIRK, [place] 1216-78-88Dong [address]Dki: (330) Name:VERONIKA [place] [address] [phone] 486886CzoayprxDAVENPORT, [place] ()Tel: [phone]) [phone]: (WP) [id number] 12/24/2017 LAVONNE Primary DAMION Vizcaino [id number] Insurance:[facility]ITAL[facility]: Community [address] MEDICARE [facility] [id number] Hospital [id number], [place] ADVANTAPolicy Number: Repository 134[address]Zal: 330) [id number] [phone] () Date:7975-11-27RP [address]BNRENKP, [place] [address]QI: 12/24/2017 Secondary LAVONNE [place] Insurance:MEDICAIDPol KEETONDOB: Community icy Number: [id number] Hospital [id number] Repository Date:2017-12-24 12/24/2017 Tertiary NOT GIVENUNK [place] Insurance:SELF PAY [facility] Number: Effective Repository Date:2017-12-24 12/18/2017 LAVONNE Primary LAVONNE [place] [id number] Insurance:ANTHEM KEETONDOB: Community [address] MEDICARE SENIOR [id number] ADVANTAPolicy Number: Repository [id number]: (330) [id number] [phone] () Date:3197-68-99XD [address]86YSXKTEO, [place] [address]XU: 12/18/2017 Secondary LAVONNE [place] Insurance:MEDICAIDPol KEETONDOB: Community icy Number: [id number] Hospital [id number] Repository Date:2017-12-09 12/18/2017 Tertiary NOT GIVENUNK [place] Insurance:SELF PAY Community [facility] Number: Effective Repository Date:2017-12-18 12/12/2017 LAVONNE Primary NOT GIVENUNK [place] [id number] Insurance:SELF PAY Community [address] Number: Effective Repository [phone]: (330) Date:2017-12-12 604 () 12/05/2017 LAVONNE Primary NOT GIVENUNK [place] [id number] Insurance:SELF PAY Community [address] Number: Effective Repository [phone]: (330) Date:2017-12-05 [phone] () 11/28/2017 LAVONNE Primary NOT GIVENUNK [place] [id number] Insurance:SELF PAY Community [address] Number: Effective Repository [phone]: (330) Date:2017-11-28 604 () 11/22/2017 LAVONNE Primary [facility]owell[facility]ONDOB: Insurance:[facility]: [facility] [id number] [facility]ITALPolunity[facility] [id number] Repository tom rdapt Number: [address] [id number] [address] [address]~Tel: (330) Date:2017-11-22 18698Jqt: 9320-10-96Agfe [phone] (HP)Tel: (999) Name:NPO BOX (HP) (WP) [address]LEQERQQRAPID CITY, [place] 000[address]0000 (WP) [address]XJ: 11/22/2017 [facility] Flavia Bright [facility] Insurance:MEDICARE KEETONDOB: [facility] APolicy Number: [id number] Repository [id number] 6 tom rdapt Date:2017-11-22 - [address] 6317-98-79Qclq 890[address]Jzz: (330) Name:MMail Code [phone] [address] (HP)Tel: 000 744683Mrfyztpv, [place] 000-0000 (WP) [address]DU: 11/22/2017 [facility] Insurance:MEDICAID OF KEETONDOB: [facility] Number: [id number] Repository [id number] 6 tom rdapt Date:2017-11-22 - [address] 1619-75-03Cmvo [address]Eho: (330) Name:VERONIKA KARLIPO [phone] 169534UleypbrlDAVENPORT, [place] (HP)Tel: 000) [address]WP: (WP) [phone] 11/18/2017 LAVONNE Primary DAMION Alejandro [place] [id number] Insurance:[facility]: Community [address] MEDICARE SENIOR [id number] ADVANTAPolicy Number: Repository [id number]: (330 [id number] [phone] () Date:7582-97-58GK [address] [place] [address] 07[address]YX: 11/18/2017 Secondary LAVONNE [place] Insurance:MEDICAIDPol KEETONDOB: Community icy Number: [id number] Hospital [id number] Repository Date:2017-11-18 11/18/2017 Tertiary NOT GIVENUNK [place] Insurance:SELF PAY [facility] Number: Effective Repository Date:2017-11-18 11/18/2017 LAVONNE Primary LAVONNE [place] [id number] Insurance:ANTHEM KEETONDOB: Community [address] MEDICARE SENIOR [id number] ADVANTAPolicy Number: Repository [id number]: 330 [id number] [phone] () Date:3801-10-90ZF [address] [place] [address] 265[address]SM: 11/18/2017 Secondary LAVONNE [place] Insurance:MEDICAIDPol KEETONDOB: Community icy Number: [id number] Hospital [id number] Repository Date:2017-11-18 11/18/2017 Tertiary NOT GIVENUNK [place] Insurance:SELF PAY [facility] Number: Effective Repository Date:2017-11-18 11/18/2017 LAVONNE Primary LAVONNE [place] [id number] Insurance:ANTHEM KEETONDOB: Community [address] MEDICARE SENIOR [id number] ADVANTAPolicy Number: Repository [address]Gzk: 330 [id number] [phone] () Date:9524-30-18EE [address] [place] [address] 264[address]AB: 11/18/2017 Secondary LAVONNE [place] Insurance:MEDICAIDPol KEETONDOB: Community icy Number: [id number] Hospital [id number] Repository Date:2017-11-18 11/18/2017 Tertiary NOT GIVENUNK [place] Insurance:SELF PAY [facility] INS[facility]ANCEPolicy Hospital Number: Effective Repository Date:2017-11-18 11/18/2017 LAVONNE Primary LAVONNE [place] [id number] Insurance:YUKI PAINTERB: Community [address] MEDICARE SENIOR [id number] Hospital Y7SYHRRZIC[place], [place] ADVANTAPolicy Number: Repository [address]Yjd: 330 [id number] [phone] () Date:1074-11-32UN [address]TDBLVPZ, [place] [address]QG: 11/18/2017 Secondary LAVONNE [place] Insurance:MEDICAIDPol [facility] icy Number: [id number] Hospital [id number] Repository Date:2017-11-18 11/18/2017 Tertiary NOT GIVENUNK [place] Insurance:SELF PAY [facility] Number: Effective Repository Date:2017-11-18 10/16/2017 Primary LAVONNE [facility] Insurance:[employer] KEETONDOB: [address] Number: [id number] [id number] [place] Repository Date:Plan LOT[facility], Name:[facility] [address]Icr: [id number] [place] [id number]: [phone] ([phone] 10/11/2017 LAVONNE [id number] Primary LAVONNE [place] [address] Insurance:YUKI PAINTERB: Community [place] MEDICARE SENIOR [id number] Hospital [address]Isk: (900) ADVANTAPolicy Number: Repository [phone] () [id number] Date:2512-75-64DS [address]YBYVLOA, [place] [address]DB: 10/11/2017 Secondary LAVONNE [place] Insurance:MEDICAIDPol [facility]: [facility] ic Number: [id number] Hospital [id number] Repository Date:2017-10-11 10/11/2017 Tertiary NOT GIVENUNK [place] Insurance:SELF PAY [facility] Number: Effective Repository Date:2017-10-11 08/28/2017 Primary LAVONNE [facility] Insurance:[employer] Cross KEETONDOB: Leeanna and CarolinaPolicleonel Number: [id number] [facility] [id number] [address] Repository Date:Plan LOT#CECILIO, Name:HealthPO Box [place] [address]Hlu: [id number] [place] [id number]: [phone]) (HP) [phone] 08/28/2017 Secondary LAVONNE [facility] Insurance:MedicaidPol KEETONDOB: Leeanna and yoel Number: [id number] [facility] [id number] [address] Repository Date:Plan Name:Health LOT#ALEXIS HERNANDES [address]Ghe: (HP) 08/28/2017 Primary LAVONNE [facility] Insurance:[employer] Cross MADINAB: Nohelia Number: [id number] [facility] [id number] [address] Repository Date:Plan LOT#CECILIO, Name:HealthPO Box [place] [address]Stm: [id number], [place] [id number]: [phone]) (HP) [phone] 08/11/2017 Primary LAVONNE [facility] Insurance:[employer] Cross JOÃODOB: Nohelia Number: [id number] [facility] [id number] [address] Repository Date:Plan LOT#CECILIO, Name:HealthPO [address] [place] [address]Foz: [id number] [place] [id number]: [phone]) (HP) [phone] 08/11/2017 Secondary LAVONNE [facility] Insurance:MedicaidPol KEETONDOB: Leeanna and yoel Number: [id number] [facility] [id number] [address] Repository Date:Plan Name:Health LOT#ALEXIS HERNANDES [address]Oja: (HP) 07/29/2017 LAVONNE [id number] Primary LAVONNE [place] [address] Insurance:MEDICARE KEETONDOB: [address] PART A BPolicy [id number] Hospital [address]Qpz: (567) Number: Repository [phone] () [id number] Date:2017-05-23 07/29/2017 Secondary LAVONNE [place] Insurance:MEDICAIDPol KEETONDOB: Community icy Number: [id number] [facility] [id number] Repository Date:2017-05-23 07/29/2017 Tertiary NOT GIVENUNK [place] Insurance:SELF PAY [facility] Number: Effective Repository Date:2017-05-23 07/20/2017 Primary LAVONNE [facility] Insurance:[employer] KEETONDOB: [place] and [address] [place] [address] Number: [id number] [facility] [id number] [facility] Repository Date:Plan [address] [place] [address], Name:HealthPO [address] [place] [address]Hkp: [id number], [place] [id number]: [phone] 07/20/2017 Secondary LAVONNE [facility] Insurance:MedicaidPol KEETONDOB: [facility] Number: [id number] [facility] [id number] [facility] Repository Date:Plan Name:Health [address] [place] [address] 24296Olz: () 07/17/2017 Primary [facility] [address] Number: [id number] [facility] [id number] [facility] Repository Date:Plan [address] [place] [address], Name:HealthPO [address] [place] [address]Eiz: [id number], [place] [phone]: [phone] 06/26/2017 LAVONNE [id number] Primary LAV[place]NE [place] [address] Insurance:ANTHEM KEETONDOB: [address] MEDICARE SENIOR [id number] Hospital [address]Jzm: [phone] ADVANTAPolicy Number: Repository [phone] () [id number] Date:[id number] [id number] [place] [address] 82468JS: 06/26/2017 Secondary LAVONNE [place] Insurance:MEDICAIDPol KEABIGAILDOB: Community icy Number: [id number] Hospital [id number] Repository Date:2017-02-18 06/26/2017 Tertiary NOT GIVENUNK [place] Insurance:SELF PAY [facility] Number: Effective Repository Date:2017-06-25 06/24/2017 LavonneFlavia [id number] Primary LAVONNE [place] [address] Insurance:ANTHEM JOÃODOB: Community [address] MEDICARE SENIOR [id number] Hospital [address]Xaw: [phone]) ADVANTAPolicy Number: Repository [phone] () [id number] Date:5102-51-84ZV [id number] [place] [address]AZ: 06/24/2017 Secondary Lavonne [place] Insurance:MEDICAIDPol KeabigailDOB: Community icy Number: [id number] [facility] [id number] Repository Date:2017-06-24 06/24/2017 Tertiary NOT GIVENUNK [place] Insurance:SELF PAY [facility] Number: Effective Repository Date:2017-06-24 06/20/2017 LavonneFlavia [id number] Primary LAVONNE [place] [address] Insurance:ANTHEM TARAABIGAILDOB: Community [address] MEDICARE SENIOR [id number] Hospital [address]Cds: [phone]) ADVANTAPolicy Number: Repository [phone] () [id number] Date:[id number] [id number] [place] [address] 745[address]JA: 06/20/2017 Secondary Lavonne [place] Insurance:MEDICAIDPol [place]DOB: Community icy Number: [id number] Hospital [id number] Repository Date:2017-06-20 06/20/2017 Tertiary NOT GIVENUNK [place] Insurance:SELF PAY [facility] Number: Effective Repository Date:2017-06-20 06/20/2017 Lavonne [id number] Primary LAVONNE [place] [address] Insurance:ANTHEM KEETONDOB: Community [address] [place] [address] MEDICARE SENIOR [id number] Hospital [address]Una: 567) ADVANTAPolicy Number: Repository [phone] (HP) [id number] Date:7350-28-99NW [facility] [id number] [place] [address]GK: 06/20/2017 Secondary Lavonne [place] Insurance:MEDICAIDPol Ke[place]DOB: Community icy Number: [id number] Hospital [id number] Repository Date:2017-06-20 06/20/2017 Tertiary NOT GIVENUNK [place] Insurance:SELF PAY [facility] Number: Effective Repository Date:2017-06-20 06/13/2017 LAVONNE Primary LAVONNE [facility] KEETONDOB: Insurance:MEDICAIDPol [facility] Repository icy Number: [id number] [place] [address] Date:[id number] [address]Jvi: [phone], [place] [address]Egd: (HP) [phone]: [phone] 06/13/2017 Secondary [facility] Health Insurance:MEDICAIDPol ETONDOB: Three Repository icy Number: [id number] Date:6710-39-96RJ [address] [place], [place] [address]Bus: [phone]: [phone] 06/13/2017 Tertiary [facility] Health Insurance:ANTHEM KEETONDOB: Three Repository MANAGED [id number] [address] Number: [address] [place] [address] [id number] Date:4139-68-90QM [id number] [place] [id number]:
== END 2018-03-31 16:12 | disposition home or self-care (01) ==
PROVIDERS: Emergency Provider Emergency Medicine; Family Provider Internal Medicine; PCP Internal Medicine
DX: R53.1 Weakness (principal); M79.89 Other specified soft tissue disorders; I11.0 Hypertensive heart disease with heart failure; I50.9 Heart failure, unspecified; K21.9 Gastro-esophageal reflux disease without esophagitis; E11.9 Type 2 diabetes mellitus without complications; Z79.4 Long term (current) use of insulin; Z79.899 Other long term (current) drug therapy
CPT/HCPCS: 36591; 71045; 74176; 80053; 81001; 83690; 83880; 85025; 96360; 99285; A4216

== ENCOUNTER 2018-04-14 08:45 | Day surgery (SDC) | payer MEDICARE, SELFPAY ==
[2018-04-14 09:00] VITALS: BP 180/59; PULSE 82; RESP 20; TEMP 37.8; O2SAT 96; BMI 43.8
[2018-04-14 09:36] LABS: Bedside Glucose 212 mg/dL (70-110)
--- NOTE | 2018-04-14 10:00 | RAD_ITS ---
PROCEDURE: Caudal block. DATE OF EXAMINATION: April 14, 2018. INDICATION: Female, 72 years old. Chronic low back pain. FLUOROSCOPY TIME (if supplied): (0:05) minutes/seconds. 2 intraoperative images were obtained. The needle is seen along the posterior midportion of the sacrum. RAD/Fluor Guidance for Spine Inj IMPRESSION: Imaging provided for caudal block. Electronically Signed: Raghu Arnett MD at 9:33 EST , Service support ,
[2018-04-14] MEDS: Bupivacaine 0.25% 30 ML Vial (10:10)
[2018-04-14] MEDS: MethylPREDNISolone Acetate 80 MG/ML Vial (10:10)
[2018-04-14 10:15] VITALS: BP 152/101; BP 180/59; PULSE 79; RESP 16; TEMP 36.8; O2SAT 99
[2018-04-14 10:20] VITALS: BP 166/72; BP 180/59; PULSE 94; RESP 16; O2SAT 94
[2018-04-14 10:25] VITALS: BP 162/68; BP 180/59; PULSE 80; RESP 16; O2SAT 94
[2018-04-14 10:30] VITALS: BP 137/63; BP 180/59; PULSE 83; RESP 16; TEMP 36.9; O2SAT 94
[2018-04-14 10:50] VITALS: BP 180/59
--- NOTE | 2018-04-14 11:21 | OP.PCM_ITS ---
Problem List (1) Degeneration of intervertebral disc of lumbosacral region Status: Chronic (2) Radiculopathy of lumbosacral region Status: Chronic (3) Spinal stenosis of lumbosacral region Status: Chronic Report of Operation Date of Procedure: 04/14/18 Pre-Operative Diagnosis: Lumbosacral radiculopathy, lumbosacral degenerative disc disease, lumbosacral spinal stenosis Post-Operative Diagnosis: Lumbosacral radiculopathy, lumbosacral degenerative disc disease, lumbosacral spinal stenosis Surgery/Procedure Performed:: Diagnostic/therapeutic caudal epidural steroid injection Description of Surgical Findings:: PROCEDURE: Diagnostic/therapeutic caudal epidural steroid injection PREOPERATIVE DIAGNOSIS: Lumbosacral radiculopathy, lumbosacral degenerative disc disease, lumbosacral spinal stenosis POSTOPERATIVE DIAGNOSIS: Lumbosacral radiculopathy, lumbosacral degenerative disc disease, lumbosacral spinal stenosis ANESTHESIA: MAC COMPLICATIONS: None BLOOD LOSS: Minimal PROCEDURE IN DETAIL: History and physical today was reviewed. Risks and benefits of the procedure were explained. The patient understood, agreed to our procedure, and informed consent was obtained. IV inserted per routine protocol. The patient was taken to the operating room, placed in a prone position with a pillow positioned underneath the abdomen. The lower back and tailbone area was prepped and draped in a sterile fashion using iodine x3 under fluoroscopy guidance on the lateral view the caudal space was identified the skin and subcutaneous tissue anesthetized approximately 3 cc of 1% lidocaine using a 25-gauge regular needle under direct visualization fluoroscopy in a lateral view using a 22-gauge 3-1/2 inch spinal needle the needle was advanced via the skin through the sacral hiatus tip of the needle passed through the sacrococcygeal ligament advanced approximately S4 area after negative aspiration for blood or CSF a total of 3 cc of contrast were injected to confirm correct placement of the needle as well as cephalad spread the spread was followed to approximately L5 area after confirmation of AP as well as lateral view and repeated negative aspiration a total of 15 cc of preservative- free 0.125% Marcaine with 80 mg of Depo-Medrol were injected easily. The needles were then removed intact. The patient experienced no signs or symptoms intrathecal, intravascular injection. The patient experienced no paraesthesia. The procedure was completed without any apparent difficult, any complication. The patient appeared to tolerate well. ASSESSMENT AND PLAN: This is a 72-year-old female with lumbosacral radiculopathy lumbosacral degenerative disc disease lumbosacral spinal stenosis status post diagnostic/therapeutic caudal epidural steroid injection patient would continue her current medications the patient will follow in approximately 2 weeks for possible repeat of the procedure if indicated.
== END 2018-04-14 11:11 | disposition home or self-care (01) ==
LOC: SDC 08:46 → AC 08:47
PROVIDERS: Family Provider Internal Medicine; PCP Internal Medicine; Referring Provider Anesthesiology Pain Medicine; Visit Provider Anesthesiology Pain Medicine
PROC: 3E0S3BZ Introduction of Anesthetic Agent into Epidural Space, Percutaneous Approach (ICD-10-PCS; CPT 62282; principal; 2018-04-14 09:55)
DX: M51.17 Intervertebral disc disorders with radiculopathy, lumbosacral region (principal); M48.07 Spinal stenosis, lumbosacral region; M46.86 Other specified inflammatory spondylopathies,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; I25.119 Atherosclerotic heart disease of native coronary artery with unspecified angina pectoris; I11.0 Hypertensive heart disease with heart failure; I50.9 Heart failure, unspecified; E11.9 Type 2 diabetes mellitus without complications; J43.9 Emphysema, unspecified; K21.9 Gastro-esophageal reflux disease without esophagitis; D64.9 Anemia, unspecified; C85.90 Non-Hodgkin lymphoma, unspecified, unspecified site; F32.9 Major depressive disorder, single episode, unspecified; F41.9 Anxiety disorder, unspecified; E78.5 Hyperlipidemia, unspecified; E06.9 Thyroiditis, unspecified; Z87.891 Personal history of nicotine dependence; Z79.4 Long term (current) use of insulin; Z79.891 Long term (current) use of opiate analgesic; Z99.81 Dependence on supplemental oxygen; Z79.899 Other long term (current) drug therapy
CPT/HCPCS: 62323; 64483; 77003; 82962; J7120; A4216; J3490

== ENCOUNTER 2018-05-12 09:24 | Day surgery (SDC) | payer MEDICARE, SELFPAY ==
[2018-05-12] VITALS (7 sets, daily range): BP systolic 116–149; BP diastolic 48–78; PULSE 76–84; RESP 16–20; TEMP 36.7–37.1; O2SAT 96–98; BMI 42.5
[2018-05-12 10:15] LABS: Bedside Glucose 157 mg/dL (70-110)
--- NOTE | 2018-05-12 10:18 | PCM.OPRPT ---
Problem List (1) Primary osteoarthritis of right hip Status: Chronic Report of Operation Date of Procedure: 05/12/18 Pre-Operative Diagnosis: Osteoarthritis of the right hip Post-Operative Diagnosis: Osteoarthritis of the right hip Surgery/Procedure Performed:: Right hip intra-articular steroid injection under fluoroscopic guidance Description of Surgical Findings:: PROCEDURE: Right hip intra-articular steroid injection under fluoroscopic guidance PREOPERATIVE DIAGNOSIS: Osteoarthritis of the right hip POSTOPERATIVE DIAGNOSIS: Osteoarthritis of the right hip ANESTHESIA: MAC COMPLICATIONS: None BLOOD LOSS: Minimal PROCEDURE IN DETAIL: History and physical today was reviewed. Risks and benefits of the procedure were explained. The patient understood, agreed to our procedure, and informed consent was obtained. IV inserted per routine protocol. The patient was taken to the operating room, placed in a supine position, the right hip was visualized under direct visualization fluoroscopy on AP view, the skin and subcutaneous tissue and size approximately 5 cc of 1% lidocaine using a 25-gauge regular needle at approximately 3 cm cephalad to the right greater trochanter, using a 22-gauge 5 inch spinal needle under direct visualization with fluoroscopy on AP view of the needle was advanced via the skin on the lateral view the tip of the needle's maneuver and directed towards the superiormost aspect of the hip joint once the tip of the needle was at the vicinity of the joint after negative aspiration for blood positive aspiration of synovial fluid a total of 2 cc of contrast were injected to confirm correct placement of the needle as well as halo spread around the hip joint after repeated negative aspiration and confirmation a total of 10 cc of preservative-free 0.25% Marcaine with 80 mg of Depo-Medrol were injected easily the needle was then removed intact patient experienced no signs or symptoms of intravascular injection, patient experienced no paresthesia, the procedure was completed without any apparent difficulty or any complication the patient appeared to tolerate well. ASSESSMENT AND PLAN: This is a 73-year-old female with osteoarthritis of the right hip status post right hip intra-articular steroid injection under fluoroscopic guidance. The patient will continue her current medications. The patient will follow in approximately 2 weeks for reevaluation.
--- NOTE | 2018-05-12 10:20 | RAD_ITS ---
STUDY: HIP INJECTION RIGHT REASON FOR EXAM: Female, 73 years old. Chronic hip pain. FLUOROSCOPY TIME (if supplied): (0:15) minutes/seconds. 3 cone down views were obtained. TECHNIQUE: The surgeon performed a right hip injection intraoperatively. COMPARISON: None. FINDINGS: Intraoperative right hip injection. RAD/Fluoro Guided Needle Placement IMPRESSION: Intraoperative right hip injection. Electronically Signed: Raghu Arnett, at 9:48 EST , Service support ,
[2018-05-12] MEDS: MethylPREDNISolone Acetate 80 MG/ML Vial (10:29)
[2018-05-12] MEDS: Bupivacaine 0.25% 30 ML Vial (10:30)
== END 2018-05-12 11:49 | disposition home or self-care (01) ==
LOC: SDC 09:25 → AC 09:26
PROVIDERS: Family Provider Internal Medicine; PCP Internal Medicine; Referring Provider Anesthesiology Pain Medicine; Visit Provider Anesthesiology Pain Medicine
PROC: 3E0U3GC Introduction of Other Therapeutic Substance into Joints, Percutaneous Approach (ICD-10-PCS; CPT 20610; principal; 2018-05-12 10:25)
DX: M16.11 Unilateral primary osteoarthritis, right hip (principal); K21.9 Gastro-esophageal reflux disease without esophagitis; K58.9 Irritable bowel syndrome, unspecified; I10 Essential (primary) hypertension; J43.9 Emphysema, unspecified; M51.37 Other intervertebral disc degeneration, lumbosacral region; M54.17 Radiculopathy, lumbosacral region; M46.96 Unspecified inflammatory spondylopathy,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; G47.33 Obstructive sleep apnea (adult) (pediatric); E11.9 Type 2 diabetes mellitus without complications; E78.5 Hyperlipidemia, unspecified; F32.9 Major depressive disorder, single episode, unspecified; F41.9 Anxiety disorder, unspecified; Z95.5 Presence of coronary angioplasty implant and graft; Z79.891 Long term (current) use of opiate analgesic; Z79.4 Long term (current) use of insulin; Z99.81 Dependence on supplemental oxygen; Z79.899 Other long term (current) drug therapy; Z87.891 Personal history of nicotine dependence; I25.10 Atherosclerotic heart disease of native coronary artery without angina pectoris
CPT/HCPCS: 20610; 76000; 77002; 82962; J7120; A4216

== ENCOUNTER 2018-07-07 16:26 | Emergency (ER) | payer MEDICARE, SELFPAY ==
[2018-05-12 09:54] VITALS: BMI 42.5
[2018-07-07 16:29] VITALS: BP 139/67; PULSE 91; RESP 18; TEMP 36.6; O2SAT 93; BMI 43.2
--- NOTE | 2018-07-07 17:02 | EKG12_ITS ---
Test Reason : Blood Pressure : / mmHG Vent. Rate : 080 BPM Atrial Rate : 080 BPM P-R Int : 184 ms QRS Dur : 086 ms QT Int : 382 ms P-R-T Axes : 060 -15 059 degrees QTc Int : 440 ms Normal sinus rhythm with sinus arrhythmia Leftward axis Poor R wave progression Reconfirmed by JEFF REGALADO, NATALIE ([id number]), film editor supervisor FLOR MALIK ([id number]) on 07/10/2018 9:49:19 AM Referred By: RICHARD Confirmed By:NATALIE AGUILAR MD
--- NOTE | 2018-07-07 17:03 | RAD_ITS ---
STUDY: X-RAY CHEST REASON FOR EXAM: Female, 73 years old. Chest pain and shortness of breath TECHNIQUE: Single AP portable view of the chest. COMPARISON: 03/31/2018 FINDINGS: There is hyperinflation of the lungs consistent with chronic obstructive lung disease (COPD). Lungs are clear. Left chest wall Mediport is noted. There is no demonstrated pleural abnormality. Normal size heart. Normal mediastinum and osvaldo. Normal visualized pulmonary arteries. Normal visualized aortic arch and descending thoracic aorta. Normal visualized thoracic spine. Normal visualized ribs, clavicles, and shoulders. There is no demonstrated abnormality of the visualized soft tissue structures of the upper abdomen. RAD/Chest 1 View (Portable) IMPRESSION: COPD without acute findings. Electronically Signed: Viktor Danielson DO at 17:29 EDT Tel , Service support ,
--- NOTE | 2018-07-07 17:03 | ED.VISSUMM ---
- ER Visit Summary Date of Service: 07/07/18 Chief Complaint: Abdominal pain History of Present Illness: The patient is a 73 F who presents for 4 days of abdominal pain. Patient states she has been having epigastric discomfort that is worse with pressure. She feels nauseated if any pressure is applied to her abdomen. She is also had multiple episodes of watery diarrhea. Today she has had discomfort radiating up into the substernal region into the neck. She denies vomiting or any urinary symptoms. No shortness of breath. Patient has COPD and is on home oxygen. Also has history of lymphoma, CHF and diverticulosis. History of traumatic injury to the abdomen. No history of surgical removal of any organs. Physical Examination: Vital signs: afebrile, hemodynamically stable, 93% on her home oxygen. General: well nourished, well developed, in no distress, BMI of 43 Skin: warm, dry, no rash, no pallor HEENT: normocephalic and atraumatic; PERRL, EOMI, moist mucous membranes Cardiovascular: regular rate and rhythm without murmurs, asymmetric nonpitting edema, left greater than right secondary to history of lymphoma, 2+ pulses all distal extremities Respiratory: No increased work of breathing, lungs are clear to auscultation bilaterally, no rales, rhonchi or wheezing Abdominal: Abdomen is soft, tender in the epigastric region in the left mid and lower quadrants with hyperactive bowel sounds, no guarding or rebound, no masses MSK: Moves all extremities, no deformities, normal strength Neuro: Awake and alert, oriented ?4. No facial droop, sensation and motor function intact and symmetric Test Results: Abnormal Lab Results 07/07/18 07/07/18 07/07/18 17:30 17:30 17:55 WBC 9.2 RBC 4.13 L Hgb 12.1 Hct 37.4 MCV 90.6 MCH 29.3 MCHC 32.4 RDW 16.1 H RDW Differential 53.1 H Plt Count 208 MPV 10.1 Immature Gran % (Auto) 0.700 Neut % (Auto) 75.5 H Lymph % (Auto) 16.0 L [place] % (Auto) 5.8 Eos % (Auto) 1.7 Baso % (Auto) 0.3 Absolute Neuts (auto) 7.0 Absolute Lymphs (auto) 1.47 Total Counted Not Reportable Sodium 141 Potassium 3.4 L Chloride 103 Carbon Dioxide 34.0 H Anion Gap 4 L BUN 8 Creatinine 0.80 Estim Creat Clear Calc 47.97 Est GFR (MDRD) Af Amer 91 Est GFR (MDRD) Non-Af 75 BUN/Creatinine Ratio 10.0 Glucose 142 H Calcium 8.5 Total Bilirubin 1.00 AST 23 ALT 27 Alkaline Phosphatase 126 H Troponin I < 0.015 Total Protein 7.0 Albumin 3.5 Globulin 3.5 Albumin/Globulin Ratio 1.0 Lipase 160 Urine Color Yellow Urine Clarity Clear Urine pH 6.0 Ur Specific [place] 1.010 Urine Protein Negative Urine Glucose (UA) Normal Urine Ketones Negative Urine Occult Blood Negative Urine Nitrite Negative Urine Bilirubin Negative Urine Urobilinogen Normal Ur Leukocyte Esterase 25 H Urine RBC 0 SEEN Urine WBC 0-5 SEEN Ur Squamous Epith Cells 0-5 SEEN Ur Transition Epith Cell 0-5 SEEN Urine Bacteria 0 SEEN Urine Mucus 0 SEEN Clinical Impression(s) from Imaging Studies Chest X-Ray 07/07/18 17:03 IMPRESSION: COPD without acute findings. Electronically Signed: Viktor Danielson DO at 17:29 EDT Tel , Service support , Abdomen/Pelvis CT 07/07/18 17:45 IMPRESSION: No acute findings. Stable area of encapsulated fat with scarring in the anterior abdominal wall the right. Under distended bladder with anterior wall thickening. Remainder as above Electronically Signed: Viktor Danielson DO at 18:24 EDT Tel , Service support , Medications Given Discontinued Medications Al Hydroxide/Mg Hydroxide (Mylanta Ii) 30 ml PO X1 ONE Stop: 07/07/18 19:54 Last Admin: 07/07/18 20:01 Dose: 30 ml Sodium Chloride () 500 mls @ 1,000 mls/hr IV .Q30M ONE Stop: 07/07/18 17:31 Last Admin: 07/07/18 17:40 Dose: 1,000 mls/hr Lidocaine HCl (Xylocaine Viscous) 15 ml PO X1 ONE Stop: 07/07/18 19:54 Last Admin: 07/07/18 20:01 Dose: 15 ml Morphine Sulfate () 4 mg IV X1 ONE Stop: 07/07/18 17:03 Last Admin: 07/07/18 17:40 Dose: 4 mg Multi-Ingredient GI Drug () 1 each PO X1 ONE Stop: 07/07/18 19:54 Last Admin: 07/07/18 20:02 Dose: Not Given Ondansetron HCl (Zofran) 4 mg IV X1 ONE Stop: 07/07/18 17:03 Last Admin: 07/07/18 17:40 Dose: 4 mg Emergency Department Course and Treatment: Work-up was performed for patient's abdominal pain and diarrhea. Because she is having radiation of a burning sensation into the chest and up to the throat, chest pain work-up was also included. EKG showed sinus rhythm with no ischemic changes. Troponin negative. CBC showed no leukocytosis or anemia. CMP was unremarkable. Lipase normal. Urine negative for infection. Chest x-ray showed COPD but no sign of pneumonia. CT abdomen and pelvis showed no acute process. Patient was reevaluated after receiving IV fluids, morphine and Zofran, and she was feeling much better. At that point she just had the sensation of heartburn. She was given a GI cocktail. Patient feels well enough to go home, and at this time there is no findings on her exam that would warrant admission or further work-up. Patient was discharged in improved condition. Treatment Plan: [] Disposition: [] Impression: Abdominal pain, GERD This note was generated with [email or web address] dictation software. It may contain incorrect words, spelling, and punctuation that were not noted in review of the chart prior to signing ED Disposition - Plan for ED Patient: Disposition: Home or Assisted Living Instructions: ED Abdominal Pain Unkn Cause Prescriptions: Ondansetron [Zofran Odt] 4 mg PO Q8H PRN PRN #10 tab PRN Reason: Nausea Referrals: Zabrina Bain MD [Primary Care Provider] - 1-2 Days if not improving Additional Instructions: Please drink plenty of fluids to stay hydrated. Use your medications as needed for heartburn. Use the nausea medicine as needed for nausea. Follow-up with your doctor in 1 to 2 days for another evaluation. If you have any worsening of your condition or any new concerning symptoms, please return immediately to the emergency department for another evaluation.
--- NOTE | 2018-07-07 17:06 | ED.DCSUM_ITS ---
- ER Visit Summary Date of Service: 07/07/18 Chief Complaint: Abdominal pain History of Present Illness: The patient is a 73 F who presents for 4 days of abdominal pain. Patient states she has been having epigastric discomfort that is worse with pressure. She feels nauseated if any pressure is applied to her abdomen. She is also had multiple episodes of watery diarrhea. Today she has had discomfort radiating up into the substernal region into the neck. She denies vomiting or any urinary symptoms. No shortness of breath. Patient has COPD and is on home oxygen. Also has history of lymphoma, CHF and diverticulosis. History of traumatic injury to the abdomen. No history of surgical removal of any organs. Physical Examination: Vital signs: afebrile, hemodynamically stable, 93% on her home oxygen. General: well nourished, well developed, in no distress, BMI of 43 Skin: warm, dry, no rash, no pallor HEENT: normocephalic and atraumatic; PERRL, EOMI, moist mucous membranes Cardiovascular: regular rate and rhythm without murmurs, asymmetric nonpitting edema, left greater than right secondary to history of lymphoma, 2+ pulses all distal extremities Respiratory: No increased work of breathing, lungs are clear to auscultation bilaterally, no rales, rhonchi or wheezing Abdominal: Abdomen is soft, tender in the epigastric region in the left mid and lower quadrants with hyperactive bowel sounds, no guarding or rebound, no masses MSK: Moves all extremities, no deformities, normal strength Neuro: Awake and alert, oriented ?4. No facial droop, sensation and motor function intact and symmetric Test Results: Abnormal Lab Results 07/07/18 07/07/18 07/07/18 17:30 17:30 17:55 WBC 9.2 RBC 4.13 L Hgb 12.1 Hct 37.4 MCV 90.6 MCH 29.3 MCHC 32.4 RDW 16.1 H RDW Differential 53.1 H Plt Count 208 MPV 10.1 Immature Gran % (Auto) 0.700 Neut % (Auto) 75.5 H Lymph % (Auto) 16.0 L [place] % (Auto) 5.8 Eos % (Auto) 1.7 Baso % (Auto) 0.3 Absolute Neuts (auto) 7.0 Absolute Lymphs (auto) 1.47 Total Counted Not Reportable Sodium 141 Potassium 3.4 L Chloride 103 Carbon Dioxide 34.0 H Anion Gap 4 L BUN 8 Creatinine 0.80 Estim Creat Clear Calc 47.97 Est GFR (MDRD) Af Amer 91 Est GFR (MDRD) Non-Af 75 BUN/Creatinine Ratio 10.0 Glucose 142 H Calcium 8.5 Total Bilirubin 1.00 AST 23 ALT 27 Alkaline Phosphatase 126 H Troponin I < 0.015 Total Protein 7.0 Albumin 3.5 Globulin 3.5 Albumin/Globulin Ratio 1.0 Lipase 160 Urine Color Yellow Urine Clarity Clear Urine pH 6.0 Ur Specific [place] 1.010 Urine Protein Negative Urine Glucose (UA) Normal Urine Ketones Negative Urine Occult Blood Negative Urine Nitrite Negative Urine Bilirubin Negative Urine Urobilinogen Normal Ur Leukocyte Esterase 25 H Urine RBC 0 SEEN Urine WBC 0-5 SEEN Ur Squamous Epith Cells 0-5 SEEN Ur Transition Epith Cell 0-5 SEEN Urine Bacteria 0 SEEN Urine Mucus 0 SEEN Clinical Impression(s) from Imaging Studies Chest X-Ray 07/07/18 17:03 IMPRESSION: COPD without acute findings. Electronically Signed: Viktor Danielson DO at 17:29 EDT Tel , Service support , Abdomen/Pelvis CT 07/07/18 17:45 IMPRESSION: No acute findings. Stable area of encapsulated fat with scarring in the anterior abdominal wall the right. Under distended bladder with anterior wall thickening. Remainder as above Electronically Signed: Viktor Danielson DO at 18:24 EDT Tel , Service support , Medications Given Discontinued Medications Al Hydroxide/Mg Hydroxide (Mylanta Ii) 30 ml PO X1 ONE Stop: 07/07/18 19:54 Last Admin: 07/07/18 20:01 Dose: 30 ml Sodium Chloride () 500 mls @ 1,000 mls/hr IV .Q30M ONE Stop: 07/07/18 17:31 Last Admin: 07/07/18 17:40 Dose: 1,000 mls/hr Lidocaine HCl (Xylocaine Viscous) 15 ml PO X1 ONE Stop: 07/07/18 19:54 Last Admin: 07/07/18 20:01 Dose: 15 ml Morphine Sulfate () 4 mg IV X1 ONE Stop: 07/07/18 17:03 Last Admin: 07/07/18 17:40 Dose: 4 mg Multi-Ingredient GI Drug () 1 each PO X1 ONE Stop: 07/07/18 19:54 Last Admin: 07/07/18 20:02 Dose: Not Given Ondansetron HCl (Zofran) 4 mg IV X1 ONE Stop: 07/07/18 17:03 Last Admin: 07/07/18 17:40 Dose: 4 mg Emergency Department Course and Treatment: Work-up was performed for patient's abdominal pain and diarrhea. Because she is having radiation of a burning sensation into the chest and up to the throat, chest pain work-up was also included. EKG showed sinus rhythm with no ischemic changes. Troponin negative. CBC showed no leukocytosis or anemia. CMP was unremarkable. Lipase normal. Urine negative for infection. Chest x-ray showed COPD but no sign of pneumonia. CT abdomen and pelvis showed no acute process. Patient was reevaluated after receiving IV fluids, morphine and Zofran, and she was feeling much better. At that point she just had the sensation of heartburn. She was given a GI cocktail. Patient feels well enough to go home, and at this time there is no findings on her exam that would warrant admission or further work-up. Patient was discharged in improved condition. Treatment Plan: [] Disposition: [] Impression: Abdominal pain, GERD This note was generated with [employer] dictation software. It may contain incorrect words, spelling, and punctuation that were not noted in review of the chart prior to signing ED Disposition - Plan for ED Patient: Disposition: Home or Assisted Living Instructions: ED Abdominal Pain Unkn Cause Prescriptions: Ondansetron [Zofran Odt] 4 mg PO Q8H PRN PRN #10 tab PRN Reason: Nausea Referrals: Zabrina Bain MD [Primary Care Provider] - 1-2 Days if not improving Additional Instructions: Please drink plenty of fluids to stay hydrated. Use your medications as needed for heartburn. Use the nausea medicine as needed for nausea. Follow-up with your doctor in 1 to 2 days for another evaluation. If you have any worsening of your condition or any new concerning symptoms, please return immediately to the emergency department for another evaluation.
[2018-07-07] MEDS: Morphine 4 MG/ML Syringe IV (17:40)
[2018-07-07] MEDS: Ondansetron 4 MG/2 ML Vial IV (17:40)
--- NOTE | 2018-07-07 17:45 | CT_ITS ---
STUDY: CT ABDOMEN AND PELVIS WITHOUT CONTRAST REASON FOR EXAM: Female, 73 years old. Abdominal pain and diarrhea x6 days RADIATION DOSAGE (If Supplied By Facility): CTDIvol = ( 22.02 ) mGy, DLP = ( 1160.70 ) mGycm TECHNIQUE: Transaxial images were obtained from the dome of the diaphragm to the symphysis pubis without oral contrast, and without intravenous contrast. Sagittal and coronal images were reconstructed. Individualized dose optimization techniques were used for this CT. COMPARISON: 03/31/2018 FINDINGS: The visualized lung bases are unremarkable. The visualized portions of the heart are within normal limits. There is hepatomegaly with diffuse hepatic enlargement. Normal gallbladder and extrahepatic biliary system. Normal spleen. Normal pancreas. Normal bilateral adrenal glands. Normal right kidney. Normal left kidney. Normal visualized stomach. Normal small intestine. There are multiple colonic diverticula consistent with diverticulosis. The appendix is visualized and appears normal. There is diffuse atherosclerotic calcification of the abdominal aorta, without a demonstrated aneurysm. Normal inferior vena cava. Normal retroperitoneum. Under distended bladder with anterior wall thickening. There is atrophy of the uterus. Stable area of encapsulated fat with surrounding scarring in the anterior right abdominal wall. There are diffuse degenerative changes of the visualized lumbar spine. CT/Abdomen/Pelvis without Cont IMPRESSION: No acute findings. Stable area of encapsulated fat with scarring in the anterior abdominal wall the right. Under distended bladder with anterior wall thickening. Remainder as above Electronically Signed: Viktor Danielson DO at 18:24 EDT Tel , Service support ,
[2018-07-07 17:52] LABS: Absolute Lymphocyte Count 1.47 X10^3/ul (0.83-4.51); Basophil# 0.03 X10^3/uL; Basophil% 0.3 % (0-1); Eosinophil# 0.16 X10^3/uL; Eosinophils% 1.7 % (0-5); Hematocrit 37.4 % (37-47); Hemoglobin 12.1 g/dl (12.0-15.0); Lymphocyte # 1.47 X10^3/ul (4.0); Mean Corp Hgb Conc 32.4 g/gl (32-36); Mean Corpuscular Hgb 29.3 pg (27.0-32.0); Mean Corpuscular Volume 90.6 fL (81-99); Mean Platelet Vol. 10.1 fl (6.2-12.0); Monocyte# 0.53 X10^3/uL; Monocyte% 5.8 % (0-10); Neutrophil # 6.95 X10^3/uL (2.7-7.7); Neutrophil % 75.5 % (47-70); Platelet Count 208 K/mm3 (150-450); RBC Distribution Width CV 16.1 % (11.6-14.6); RBC Distribution Width SD 53.1 fl (35.1-43.9); Red Blood Count 4.13 M/mm3 (4.2-5.4); White Blood Count 9.2 K/mm3 (4.4-11.0)
[2018-07-07 17:55] LABS: POSITIVE COUNT NO; POSITIVE DIFFERENTIAL NO; POSITIVE MORPHOLOGY NO
[2018-07-07 18:06] LABS: AST(SGOT) 23 U/L (15-37); Alanine Aminotransfer ALT/SGPT 27 U/L (13-56); Albumin, Serum 3.5 g/dL (3.2-5.0); Alkaline Phosphatase 126 U/L (45-117); Anion Gap 4 (5-15); BUN 8 mg/dL (7-18); Calcium,Total 8.5 mg/dL (8.5-10.1); Chloride 103 mmol/L (98-107); EST Glomerular Filtration Rate 75 mL/min (>60); Est Glom Filt Rate - Afr Amer 91 mL/min (>60); Estimated Creatinine Clearance 47.97 ml/min; Globulin 3.5 g/dL (2.2-4.2); Glucose 142 mg/dL (74-106); Lipase 160 U/L (73-393); Potassium 3.4 mmol/L (3.5-5.1); Sodium Level 141 mmol/L (136-145)
[2018-07-07 18:15] LABS: Bacteria 0 SEEN /hpf (None Seen); Mucous, Urine 0 SEEN /hpf (<or=2+); Red Blood Cells-Urine 0 SEEN /hpf (0-5)
[2018-07-07 18:21] LABS: Color, Urine Yellow (Yellow); Glucose, Dipstick Normal (Normal); Ketone-Dipstick Negative (Negative); Leukocyte Esterase-Dipstick 25 /ul (Negative); Nitrite-Dipstick Negative (Negative); Occult Blood-Urine Negative /ul (Negative); Protein-Dipstick Negative (Negative); Urine Bilirubin Dipstick Negative (Negative); Urine Clarity Clear (Clear); Urine Urobilinogen Normal (Normal)
[2018-07-07 18:31] LABS: Squamous Epithelial Cells - UA 0-5 SEEN /hpf (5-10); Transitional Epithelial - Ur 0-5 SEEN /hpf (0-5); White Blood Cells 0-5 SEEN /hpf (0-5)
[2018-07-07 19:55] VITALS: BP 157/73; PULSE 75; RESP 18; O2SAT 97
[2018-07-07] MEDS: Mag Hydrox/Al Hydrox/Simeth 30 ML UDC PO (20:01)
[2018-07-07 20:05] VITALS: BP 157/73; PULSE 72; RESP 18; O2SAT 95
== END 2018-07-07 20:05 | disposition home or self-care (01) ==
PROVIDERS: Emergency Provider Emergency Medicine; Family Provider Internal Medicine; PCP Internal Medicine
DX: K21.9 Gastro-esophageal reflux disease without esophagitis (principal); R10.9 Unspecified abdominal pain; I50.9 Heart failure, unspecified; J44.9 Chronic obstructive pulmonary disease, unspecified; Z99.81 Dependence on supplemental oxygen; E66.9 Obesity, unspecified; Z68.41 Body mass index [BMI] 40.0-44.9, adult
CPT/HCPCS: 71045; 74176; 80053; 81001; 83690; 84484; 85025; 93005; 96374; 96375; 99283; J7040; A4216; J2405

== ENCOUNTER 2018-08-06 11:19 | Day surgery (SDC) | payer MEDICARE, SELFPAY ==
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
[2018-08-06] VITALS (8 sets, daily range): BP systolic 116–128; BP diastolic 39–75; PULSE 84–89; RESP 16–20; TEMP 36.4–36.8; O2SAT 95–97; BMI 43.0
--- NOTE | 2018-08-06 | IMM_PTH ---
PATIENT: DAMION OROZCO LOC: EN U#:[id number] AGE/SX: 73/F ROOM: RE08/06/[address]: Dr. Robin Bauer MD : 1945 BED: DIS: 08/06/2018 SPEC #: [id number] RECD: 08/08/18 13:07 STATUS: MARIO REQ #: [id number] CAIO: 08/06/18 00:[address]: Robin Bauer DEPT: IMMUNOHISTOCHEMISTRY RECD BY: Marjorie Murphy ENTERED: 08/08/18 13:07 SP TYPE: IMMUNO OTHR DR: Dr. Zabrina Bain MD Tissues: B - Stomach, NOS Procedures: H Pylori (initial) PHYSICIAN & INSTITUTION [place] [address] SPECIMEN INFORMATION: Tissue Source: B - Gastric antrum biopsy Clinical Info: Nausea, vomiting, diarrhea Specimen Number: [id number] CPT code: 17792 METHODOLOGY: Deparaffinized sections of prefer/formalin-fixed tissue or PAP/DQ stained slides are incubated with monoclonal/polyclonal antibodies/oligonucleotide probes. Localization is made via biotin free immunoperoxidase method. Appropriate controls are performed and reacted as expected. Results on target cell population are indicated in the following table: RESULTS: ANTIBODY / CLONE RESULT Block B H Pylori (polyclonal) negative These tests were developed and their performance characteristics determined by [facility]. They may not have been cleared or approved by the U.S. Food and Drug Administration. The FDA has determined that such clearance or approval is not necessary. INTERPRETATION: B. Gastric antrum, biopsy: Negative for Helicobacter pylori organisms. AM:keith 08/11/18
--- NOTE | 2018-08-06 | EGD_PTH ---
PATIENT: DAMION OROZCO LOC: EN U#:[id number] AGE/SX: 73/F ROOM: RE08/06/[address]: Dr. Robin Bauer MD : 1945 BED: DIS: 08/06/2018 SPEC #: [id number] RECD: 08/06/18 14:40 STATUS: MARIO VENKAT #: [id number] CAIO: 08/06/18 00:[address]: Robin Bauer DEPT: SURGICAL PATHOLOGY RECD BY: Luc Alcaraz ENTERED: 08/07/18 10:11 SP TYPE: EGD BIOPSY OTHR DR: Dr. Zabrina Bain MD Tissues: A - Jejunum, NOS B - Gastric mucous membrane C - Gastric mucous membrane D - Gastric mucous membrane E - COLON BIOPSY F - Ascending colon G - Sigmoid colon biopsy H - Rectum, NOS Procedures: Special Stain Group II Surgery Specimen Level IV Alcian Blue/PAS (control) HEADER OPERATION: Colonoscopy, EGD ([facility]) PRE-OP DIAGNOSIS: Nausea, vomiting, diarrhea TISSUE SUBMITTED: A - Biopsy jejunum, B - Biopsy gastric antrum, C - Polyp gastric antrum, D - Biopsy GE junction, E - Random colon biopsy, F - Polyp ascending colon, G - Polyp sigmoid colon, H - Polyp rectum MICROSCOPIC DIAGNOSIS A. Jejunum, biopsy: No pathologic diagnosis. B. Gastric antrum, biopsy: Mild chronic gastritis. See comment. C. Gastric antrum polyp, biopsy: Hyperplastic polyp with focal features of fundic gland polyp, inflamed. D. Gastroesophageal junction, biopsy: Mild chronic inflammation. No evidence of intestinal metaplasia. See comment. E. Random colon biopsy: No pathologic diagnosis. F. Ascending colon polyp, biopsy: Tubular adenoma. G. Sigmoid colon polyp, biopsy: Tubular adenoma. H. Rectal polyp, biopsy: Benign mucosal polyp. See comment. AM:keith 08/08/18 COMMENT B. The results of immunohistochemistry for Helicobacter pylori will be reported separately ([id number]). D. Alcian blue/PAS stain with matched control supports the above diagnosis. H. Neither hyperplastic nor adenomatous change is identified. Clinical correlation is suggested. MICROSCOPIC DESCRIPTION Slides are reviewed. GROSS DESCRIPTION A - Received in fixative is one container labeled with the patient's name and designated biopsy jejunum. The specimen consists of one irregular fragment of light ball soft tissue that measures 0.4 x 0.1 x 0.1 cm. The specimen is totally submitted in one cassette. B - Received in fixative is one container labeled with the patient's name and designated biopsy gastric antrum. The specimen consists of one irregular fragment of light ball soft tissue that measures 0.3 x 0.1 x 0.1 cm. The specimen is totally submitted in one cassette. C - Received in fixative is one container labeled with the patient's name and designated polyp gastric antrum. The specimen consists of a ball-pink polypoid portion of mucosal-lined soft tissue measuring 1.1 x 1 x 0.8 cm. The specimen is bisected and totally submitted in one cassette. D - Received in fixative is one container labeled with the patient's name and designated biopsy GE junction. The specimen consists of one irregular fragment of light ball soft tissue that measures 0.2 x 0.1 x 0.1 cm. The specimen is totally submitted in one cassette. E - Received in fixative is one container labeled with the patient's name and designated random colon biopsy. The specimen consists of two irregular fragments of light ball soft tissue that in aggregate measure 0.3 x 0.2 x 0.2 cm. The specimen is totally submitted in one cassette. F - Received in fixative is one container labeled with the patient's name and designated polyp ascending colon. The specimen consists of two irregular fragments of light ball soft tissue that in aggregate measure 0.2 x 0.1 x 0.1 cm. The specimen is totally submitted in one cassette. G - Received in fixative is one container labeled with the patient's name and designated polyp sigmoid colon. The specimen consists of a single reddish-pink polypoid portion of mucosal-lined soft tissue measuring 0.8 x 0.4 x 0.3 cm. The specimen is totally submitted in one cassette. H - Received in fixative is one container labeled with the patient's name and designated polyp rectum. The specimen consists of two reddish-pink fragments of soft tissue that in aggregate measure 0.3 x 0.1 x 0.1 cm. The specimen is totally submitted in one cassette. / CE:rg 08/07/18 TC:5 CPT: 45477 x8, 31061
[2018-08-06 12:06] LABS: Bedside Glucose 173 mg/dL (70-110)
--- NOTE | 2018-08-06 13:07 | OP.ENDO_ITS ---
08/06/2018 Zabrina Bain [address] [place] [address] Re : Upper GI endoscopy procedure for Feli Talamanteseton Dear Dr. Bain This procedure was performed on Monday, August 06, 2018. My impressions and recommendations are as follows: Impressions : - Normal examined jejunum. Biopsied. - Normal. - Gastritis. Biopsied. - A single gastric polyp. Resected and retrieved. - Non-severe reflux esophagitis. Biopsied. Recommendations : - Return to physician healthcare administrative assistant in 1 week. - Continue present medications. My findings are described in the full procedure note, which is enclosed. If I can be of further assistance, please feel free to contact me at Doctor phone number(s): , Work: . Sincerely, Rboin Bauer MD 08/06/2018 1:07:11 PM This report has been signed electronically.
--- NOTE | 2018-08-06 13:09 | OP.ENDO_ITS ---
08/06/2018 Zabrina Bain [address] [place] [address] Re : Colonoscopy procedure for Feli Talamanteseton Dear Dr. Bain This procedure was performed on Monday, August 06, 2018. My impressions and recommendations are as follows: Impressions : - Hemorrhoids found on perianal exam. - Three small polyps at the recto-sigmoid colon, in the sigmoid colon and in the ascending colon, removed with a hot snare. Resected and retrieved. - The entire examined colon is normal. Biopsied. - Diverticulosis in the entire examined colon. - The distal rectum and anal verge are normal on retroflexion view. Recommendations : - Discharge patient to home. - Resume previous diet. - Continue present medications. - Return to physician client services assistant in 1 week. - Repeat colonoscopy is recommended. The colonoscopy date will be determined after pathology results from today's exam become available for review. My findings are described in the full procedure note, which is enclosed. If I can be of further assistance, please feel free to contact me at Doctor phone number(s): , Work: . Sincerely, Robin Bauer MD 08/06/2018 1:09:36 PM This report has been signed electronically.
== END 2018-08-06 13:59 | disposition home or self-care (01) ==
LOC: EN 11:20 → AC 11:22
PROVIDERS: Family Provider Internal Medicine; PCP Internal Medicine; Referring Provider Surgery; Visit Provider Surgery
PROC: 0DJD8ZZ Inspection of Lower Intestinal Tract, Via Natural or Artificial Opening Endoscopic (ICD-10-PCS; CPT 45378; principal; 2018-08-06 12:30)
DX: K21.0 Gastro-esophageal reflux disease with esophagitis (principal); K57.30 Diverticulosis of large intestine without perforation or abscess without bleeding; K64.9 Unspecified hemorrhoids; K29.50 Unspecified chronic gastritis without bleeding; K31.7 Polyp of stomach and duodenum; D12.2 Benign neoplasm of ascending colon; D12.5 Benign neoplasm of sigmoid colon; K62.1 Rectal polyp; R10.13 Epigastric pain; R11.2 Nausea with vomiting, unspecified; R19.4 Change in bowel habit; K58.0 Irritable bowel syndrome with diarrhea; K76.0 Fatty (change of) liver, not elsewhere classified; Z83.79 Family history of other diseases of the digestive system; I25.119 Atherosclerotic heart disease of native coronary artery with unspecified angina pectoris; I11.0 Hypertensive heart disease with heart failure; I50.32 Chronic diastolic (congestive) heart failure; I27.20 Pulmonary hypertension, unspecified; E03.9 Hypothyroidism, unspecified; E11.9 Type 2 diabetes mellitus without complications; E78.2 Mixed hyperlipidemia; F41.1 Generalized anxiety disorder; F32.9 Major depressive disorder, single episode, unspecified; D50.9 Iron deficiency anemia, unspecified; M35.00 Sjogren syndrome, unspecified; G47.33 Obstructive sleep apnea (adult) (pediatric); E66.9 Obesity, unspecified; Z68.41 Body mass index [BMI] 40.0-44.9, adult; Z85.72 Personal history of non-Hodgkin lymphomas; Z79.4 Long term (current) use of insulin; Z79.84 Long term (current) use of oral hypoglycemic drugs; Z79.899 Other long term (current) drug therapy; Z87.891 Personal history of nicotine dependence; K57.32 Diverticulitis of large intestine without perforation or abscess without bleeding; J44.9 Chronic obstructive pulmonary disease, unspecified
CPT/HCPCS: 43239; 43251; 45380; 45385; 82962; 88305; 88313; 88342; J7120; A4216; J2405

== ENCOUNTER 2018-08-11 05:50 | Day surgery (SDC) | payer MEDICARE, SELFPAY ==
[2018-08-06 11:43] VITALS: BMI 43.0
[2018-08-11] VITALS (7 sets, daily range): BP systolic 107–142; BP diastolic 45–73; PULSE 83–87; RESP 18–20; TEMP 36.3–37; O2SAT 96–98; BMI 43.6
[2018-08-11 07:20] LABS: Bedside Glucose 233 mg/dL (70-110)
--- NOTE | 2018-08-11 07:30 | RAD_ITS ---
PROCEDURE: Right L3 S1 facet joint block. DATE OF EXAMINATION: August 11, 2018. INDICATION: Female, 73 years old. Chronic back pain. FLUOROSCOPY TIME (if supplied): (0:16) minutes/seconds. 4 intraoperative spot images were obtained. Intraoperative fluoroscopic services provided for right L3-S1 facet joint block. RAD/L/S Spine Min 4 Views IMPRESSION: Intraoperative fluoroscopic services provided for right L3-S1 facet joint block. Electronically Signed: Raghu Arnett, at 9:44 EDT , Service support ,
[2018-08-11] MEDS: MethylPREDNISolone Acetate 80 MG/ML Vial (07:41)
[2018-08-11] MEDS: Bupivacaine 0.25% 30 ML Vial (07:41)
--- NOTE | 2018-08-11 09:47 | PCM.OPRPT ---
Problem List (1) Spondylosis of lumbosacral region without myelopathy or radiculopathy Status: Chronic (2) Degeneration of intervertebral disc of lumbosacral region Status: Chronic Report of Operation Date of Procedure: 08/11/18 Pre-Operative Diagnosis: Lumbosacral spondylosis, lumbosacral degenerative disc disease, lumbar facet arthropathy Post-Operative Diagnosis: Lumbosacral spondylosis, lumbosacral degenerative disc disease, lumbar facet arthropathy Surgery/Procedure Performed:: Right-sided lumbar facet steroid injection L3, L4, L5, S1 Description of Surgical Findings:: PROCEDURE: Right-sided lumbar facet steroid injection L3, L4, L5, S1 PREOPERATIVE DIAGNOSIS: Lumbosacral spondylosis, lumbosacral degenerative disc disease, and lumbar facet arthropathy POSTOPERATIVE DIAGNOSIS: Lumbosacral spondylosis, lumbosacral degenerative disc disease, and lumbar facet arthropathy ANESTHESIA: MAC COMPLICATIONS: None BLOOD LOSS: Minimal PROCEDURE IN DETAIL: History and physical today was reviewed. Risks and benefits of the procedure were explained. The patient understood, agreed to our procedure, and informed consent was obtained. IV inserted per routine protocol. The patient was taken to the operating room, placed in a prone position with a pillow positioned underneath the abdomen. The right side of the lower back was prepped and draped in a sterile fashion using iodine x3. Under fluoroscopy guidance, on AP view, L3 through S1 vertebral bodies were visualized. Skin and subcutaneous tissues were anesthetized with approximately 5 mL of 1% lidocaine using a 25-gauge regular needle. Under direct visualization with fluoroscopy at approximately 25-degree angle, starting on the right L3, ending on the right S1, passing through the L4-L5 using a 22-gauge 3 1/2-inch spinal needle, the needle was advanced via the skin. The tip of the needle was maneuvered and directed towards the superior and medial gutter of the transverse process at the vicinity of the medial branch. Once the tip of the needle was in contact with the bone, the needle pulled approximately 2 mm off the bone. After negative aspiration of blood with CSF and confirmation of AP as well as oblique view, a total of 8 mL of preservative-free 0.25% Marcaine with 80 mg of Depo-Medrol was injection in divided doses between those 4 levels. The needles were then removed intact. The patient experienced no signs or symptoms intrathecal, intravascular injection. The patient experienced no paraesthesia. The procedure was completed without any apparent difficult, any complication. The patient appeared to tolerate well. ASSESSMENT AND PLAN: This is a 73-year-old female with lumbosacral spondylosis, lumbosacral degenerative disc disease, and lumbar facet arthropathy, status post right-sided lumbar facet steroid injection L3 through S1. The patient will continue her current medications. The patient will follow in approximately 2 weeks for reevaluation.
--- NOTE | 2018-08-11 09:51 | OP.PCM_ITS ---
Problem List (1) Spondylosis of lumbosacral region without myelopathy or radiculopathy Status: Chronic (2) Degeneration of intervertebral disc of lumbosacral region Status: Chronic Report of Operation Date of Procedure: 08/11/18 Pre-Operative Diagnosis: Lumbosacral spondylosis, lumbosacral degenerative disc disease, lumbar facet arthropathy Post-Operative Diagnosis: Lumbosacral spondylosis, lumbosacral degenerative disc disease, lumbar facet arthropathy Surgery/Procedure Performed:: Right-sided lumbar facet steroid injection L3, L4, L5, S1 Description of Surgical Findings:: PROCEDURE: Right-sided lumbar facet steroid injection L3, L4, L5, S1 PREOPERATIVE DIAGNOSIS: Lumbosacral spondylosis, lumbosacral degenerative disc disease, and lumbar facet arthropathy POSTOPERATIVE DIAGNOSIS: Lumbosacral spondylosis, lumbosacral degenerative disc disease, and lumbar facet arthropathy ANESTHESIA: MAC COMPLICATIONS: None BLOOD LOSS: Minimal PROCEDURE IN DETAIL: History and physical today was reviewed. Risks and benefits of the procedure were explained. The patient understood, agreed to our procedure, and informed consent was obtained. IV inserted per routine protocol. The patient was taken to the operating room, placed in a prone position with a pillow positioned underneath the abdomen. The right side of the lower back was prepped and draped in a sterile fashion using iodine x3. Under fluoroscopy guidance, on AP view, L3 through S1 vertebral bodies were visualized. Skin and subcutaneous tissues were anesthetized with approximately 5 mL of 1% lidocaine using a 25-gauge regular needle. Under direct visualization with fluoroscopy at approximately 25-degree angle, starting on the right L3, ending on the right S1, passing throu gh the L4-L5 using a 22-gauge 3 1/2-inch spinal needle, the needle was advanced via the skin. The tip of the needle was maneuvered and directed towards the superior and medial gutter of the transverse process at the vicinity of the medial branch. Once the tip of the needle was in contact with the bone, the needle pulled approximately 2 mm off the bone. After negative aspiration of blood with CSF and confirmation of AP as well as oblique view, a total of 8 mL of preservative-free 0.25% Marcaine with 80 mg of Depo- Medrol was injection in divided doses between those 4 levels. The needles were then removed intact. The patient experienced no signs or symptoms intrathecal, intravascular injection. The patient experienced no paraesthesia. The procedure was completed without any apparent difficult, any complication. The patient appeared to tolerate well. ASSESSMENT AND PLAN: This is a 73-year-old female with lumbosacral spondylosis, lumbosacral degenerative disc disease, and lumbar facet arthropathy, status post right-sided lumbar facet steroid injection L3 through S1. The patient will continue her current medications. The patient will follow in approximately 2 weeks for reevaluation.
== END 2018-08-11 08:54 | disposition home or self-care (01) ==
LOC: SDC 05:51 → AC 05:52
PROVIDERS: Family Provider Internal Medicine; PCP Internal Medicine; Referring Provider Anesthesiology Pain Medicine; Visit Provider Anesthesiology Pain Medicine
PROC: 3E0T3BZ Introduction of Anesthetic Agent into Peripheral Nerves and Plexi, Percutaneous Approach (ICD-10-PCS; CPT 64493; principal; 2018-08-11 07:20)
DX: M47.817 Spondylosis without myelopathy or radiculopathy, lumbosacral region (principal); M51.37 Other intervertebral disc degeneration, lumbosacral region; M46.96 Unspecified inflammatory spondylopathy,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; I11.0 Hypertensive heart disease with heart failure; I50.9 Heart failure, unspecified; J43.9 Emphysema, unspecified; I25.10 Atherosclerotic heart disease of native coronary artery without angina pectoris; G47.33 Obstructive sleep apnea (adult) (pediatric); E11.9 Type 2 diabetes mellitus without complications; E78.5 Hyperlipidemia, unspecified; I34.8 Other nonrheumatic mitral valve disorders; F32.9 Major depressive disorder, single episode, unspecified; K21.9 Gastro-esophageal reflux disease without esophagitis; F41.9 Anxiety disorder, unspecified; M19.90 Unspecified osteoarthritis, unspecified site; E07.9 Disorder of thyroid, unspecified; Z79.4 Long term (current) use of insulin; Z79.84 Long term (current) use of oral hypoglycemic drugs; Z79.891 Long term (current) use of opiate analgesic; Z99.81 Dependence on supplemental oxygen; Z79.899 Other long term (current) drug therapy; Z87.891 Personal history of nicotine dependence
CPT/HCPCS: 64493; 64494; 64495; 64483; 72110; 82962; J7120; A4216

== ENCOUNTER 2018-08-15 11:54 | Emergency (ER) | payer MEDICARE, SELFPAY ==
[2018-08-11 06:37] VITALS: BMI 43.6
[2018-08-15 11:55] VITALS: BP 139/68; PULSE 84; RESP 18; TEMP 36.6; O2SAT 92; BMI 45.3
--- NOTE | 2018-08-15 11:58 | ED.RN ---
PT FORGOT TO TURN ON HOME O2. ROOM AIR SAT AT 93. PT TURNED ON O2 AT 3
--- NOTE | 2018-08-15 12:49 | CT_ITS ---
STUDY: CT PELVIS WITHOUT CONTRAST REASON FOR EXAM: Female, 73 years old. Perianal abscess. Pressure sore. RADIATION DOSAGE (If Supplied By Facility): CTDIvol = ( 27.91 ) mGy, DLP = ( 1061.51 ) mGycm TECHNIQUE: Transaxial imaging of the pelvis was performed with oral contrast, and without intravenous administration of contrast material. Individualized dose optimization techniques were used for this CT. COMPARISON: Comparison is made with prior study dated July 07, 2018. FINDINGS: Normal urinary bladder. No perianal abscess is seen. Normal visualized small intestine. Normal visualized colon. There is no pelvic fluid. There is no pelvic mass lesion or lymphadenopathy. Normal visualized pelvic arteries. Stable 5.3 cm x 3 cm encapsulated fat with scarring in the anterior abdominal wall on the right side. This most likely presents postoperative changes such as reversal of a colostomy. There are diffuse degenerative changes of the visualized lumbar spine. CT/Pelvis without IV Contrast IMPRESSION: Stable examination. No acute abnormality is seen. Electronically Signed: Raghu Arnett, at 14:48 EDT , Service support ,
[2018-08-15 13:57] LABS: Absolute Lymphocyte Count 1.41 X10^3/ul (0.83-4.51); Basophil# 0.03 X10^3/uL; Basophil% 0.2 % (0-1); Eosinophil# 0.13 X10^3/uL; Eosinophils% 1.1 % (0-5); Hematocrit 37.8 % (37-47); Hemoglobin 12.5 g/dl (12.0-15.0); Lymphocyte # 1.41 X10^3/ul (4.0); Lymphocyte % 11.5 % (19-41); Mean Corp Hgb Conc 33.1 g/gl (32-36); Mean Corpuscular Hgb 29.8 pg (27.0-32.0); Mean Platelet Vol. 9.8 fl (6.2-12.0); Monocyte# 0.67 X10^3/uL; Monocyte% 5.5 % (0-10); Neutrophil # 9.95 X10^3/uL (2.7-7.7); Neutrophil % 81.1 % (47-70); Platelet Count 226 K/mm3 (150-450); RBC Distribution Width CV 14.7 % (11.6-14.6); RBC Distribution Width SD 47.7 fl (35.1-43.9); White Blood Count 12.3 K/mm3 (4.4-11.0)
[2018-08-15 13:59] LABS: POSITIVE COUNT NO; POSITIVE DIFFERENTIAL NO; POSITIVE MORPHOLOGY NO
[2018-08-15 14:05] LABS: Anion Gap 4 (5-15); BUN 14 mg/dL (7-18); BUN/Creat Ratio 20.2 RATIO (10-20); Calcium,Total 8.9 mg/dL (8.5-10.1); Chloride 102 mmol/L (98-107); Creatinine, Serum 0.69 mg/dL (0.55-1.02); EST Glomerular Filtration Rate 89 mL/min (>60); Est Glom Filt Rate - Afr Amer 107 mL/min (>60); Estimated Creatinine Clearance 38.37 ml/min; Glucose 190 mg/dL (74-106); Potassium 3.4 mmol/L (3.5-5.1); Sodium Level 140 mmol/L (136-145)
[2018-08-15 14:50] VITALS: BP 152/69; PULSE 75; RESP 18; TEMP 36.8; O2SAT 96
--- NOTE | 2018-08-15 15:15 | ED.VIS.GEN ---
History of Present Illness Chief Complaint: Wound Informant: Patient Onset: Days Context: Gradual Onset Timing: Continuous Quality: Bilateral buttocks and perianal discomfort Location: Bilateral lower buttocks and perianal Current Severity: Mild Maximum Severity: Moderate Worsened by: Sitting Relieved by: Nothing Associated Symptoms: No fever or chills. No urologic symptoms. Intermittent diarrhea secondary Narrative: Patient is a 73-year-old woman who had culture of a pressure sore that grew enterococcus faecalis. She denies fever, chills night sweats. She reports increased pain with sitting. She does sit a lot. She has no other complaints. Prior similar symptoms: Yes Recent Illness/Hospitalization: No - Past Medical History (1) Anxiety Status: Chronic (2) Benign essential HTN Status: Chronic (3) Chronic obstructive pulmonary disease Status: Chronic (4) Degeneration of intervertebral disc of lumbosacral region Status: Chronic (5) Depression Status: Chronic (6) Diverticulosis Status: Chronic (7) Hyperlipidemia Status: Chronic (8) Hypothyroidism Status: Chronic (9) IBS (irritable bowel syndrome) Status: Chronic (10) Mild aortic stenosis Status: Chronic (11) Morbid obesity Status: Chronic (12) Non Hodgkin's lymphoma Status: Chronic (13) Primary osteoarthritis of right hip Status: Chronic (14) Sjogren's syndrome Status: Chronic (15) Sleep apnea Status: Chronic Past Medical History - Allergies and Home Meds Allergies/Adverse Reactions: Allergies adhesive Allergy (Verified 08/15/18 11:59) Itching adhesive tape Allergy (Verified 08/15/18 11:59) Rash amoxicillin trihydrate [From Augmentin] Allergy (Verified 08/15/18 11:59) Hives Iodinated Contrast- Oral and IV Dye Allergy (Verified 08/15/18 14:06) Unknown latex Allergy (Verified 08/15/18 11:59) Rash Latex, Natural Rubber Allergy (Verified 08/15/18 11:59) Rash metronidazole [From Flagyl] Allergy (Verified 08/15/18 11:59) Hives Metronidazole HCl [From Flagyl] Allergy (Verified 08/15/18 11:59) Hives Penicillins [PCN] Allergy (Verified 08/15/18 11:59) Hives potassium clavulanate [From Augmentin] Allergy (Verified 08/15/18 11:59) Hives sulfamethoxazole [From Bactrim] Allergy (Verified 08/15/18 11:59) Hives hives trimethoprim [From Bactrim] Allergy (Verified 08/15/18 11:59) Hives hives diphenhydramine HCl [From Benadryl] Adverse Reaction (Verified 08/15/18 11:59) i could crawl to the ceiling i could crawl the ceiling omeprazole Adverse Reaction (Verified 08/15/18 11:59) Nausea promethazine HCl [From Phenergan] Adverse Reaction (Verified 08/15/18 11:59) Nausea antihistamine Allergy (Uncoded 08/15/18 11:59) i could crawl to the ceiling crawl the ceiling Primary Care Physician: Zabrina Bain MD [Primary Care Provider] - Prior records reviewed: Yes - General surgeon Dr. Robin Bauer Surgical History: - - Right breast hematoma removal, Left breast lumps removal, Right chest port, R Wrist surery, T+A, hemorrhoidectomy. Lives: With Family Smoking Status: Former smoker Alcohol: None - Family History Offspring Family History: Family History (Last Reviewed 12/18/17 @ 10:56 by Sruthi Flores) Brother CAD (coronary artery disease) CVA (cerebral vascular accident) Brother Sudden cardiac Brother CAD (coronary artery disease) Mother Heart disease Father Brain aneurysm Family History: Reports: Cancer, Diabetes, Hypertension Maternal Family History: Family History (Last Reviewed 12/18/17 @ 10:56 by Sruthi Flores) Brother CAD (coronary artery disease) CVA (cerebral vascular accident) Brother Sudden cardiac Brother CAD (coronary artery disease) Mother Heart disease Father Brain aneurysm Family History: Reports: - Sibling Family History: Family History (Last Reviewed 12/18/17 @ 10:56 by Sruthi Flores) Brother CAD (coronary artery disease) CVA (cerebral vascular accident) Brother Sudden cardiac Brother CAD (coronary artery disease) Mother Heart disease Father Brain aneurysm Family History: Reports: - Review of Systems General: Denies: Chills, Fever, Malaise, Subjective, Sweats, Weight loss, - ENT: Denies: Bilateral ear pain, Rhinorrhea, Sore throat Cardiovascular: Denies: Chest pain, Palpitations Respiratory: Denies: Dyspnea, Cough, Dyspnea on exertion Gastrointestinal: Denies: Abdominal pain, Nausea, Vomiting, Diarrhea, Melena, Hematochezia Genitourinary: Denies: Dysuria, Hematuria, Frequency Musculoskeletal: Denies: Myalgias, Arthralgias, Neck pain, Back pain, Extremity Pain Skin: Reports: Rash, Abscess, Wounds. Denies: Abrasions Neurological: Denies: Headache, Weakness, Parasthesia, Numbness Psych: Reports: Anxiety Endocrine: Reports: Polydipsia. Denies: Polyuria Hematologic: Denies: Easy bruising, Easy bleeding Allergy: Denies: Uticaria, Swelling of the mouth Physical Exam Vital Signs/Narrative: Vital Signs Temp Pulse Resp BP Pulse Ox 08/15/18 14:50 98.2 F 75 18 152/69 H 96 08/15/18 11:55 98 F 84 18 139/68 H 92 Inital Vital Signs reviewed: Yes General: Well nourished, Well developed, Obese, No Acute Distress Head: Normocephalic, Atraumatic Eyes: Perrl, EOMI. Negative for: Pale conjunctiva, Scleral icterus, - ENT: Moist mucous membranes, No rhinorrhea Neck: Supple, Nontender, No lymphadenopathy, No JVD, - Cardiovascular: Regular rate, Regular rhythm, No murmurs Abdomen: Soft, Nontender, Nondistended, Normal bowel sounds, No masses Rectal: Tenderness, - - No obvious fluctuant. There is no fissures or fistulas noted. There is evidence of hemorrhoids. Back: Nontender, Normal Inspection Extremities: Nontender, No edema Skin: Normal color, Rash - Erythematous warm rash involving both buttocks there is slight breakdown in skin. Neurological: Alert, Oriented x3, Cranial nerves II-XII grossly intact, Normal Strength, Normal Sensation Psychological: Normal affect Diagnostic/Tx/Re-eval Impressions Pelvis CT 08/15/18 12:49 IMPRESSION: Stable examination. No acute abnormality is seen. Electronically Signed: Raghu Arnett, at 14:48 EDT , Service support , 08/15/18 12:49 Pelvis without IV Contrast [CT] Stat Laboratory Results 08/15/18 08/15/18 13:30 13:30 WBC 12.3 H RBC 4.20 Hgb 12.5 Hct 37.8 MCV 90.0 MCH 29.8 MCHC 33.1 RDW 14.7 H RDW Differential 47.7 H Plt Count 226 MPV 9.8 Immature Gran % (Auto) 0.600 Neut % (Auto) 81.1 H Lymph % (Auto) 11.5 L Glascock % (Auto) 5.5 Eos % (Auto) 1.1 Baso % (Auto) 0.2 Absolute Neuts (auto) 10.0 H Absolute Lymphs (auto) 1.41 Total Counted Not Reportable Sodium 140 Potassium 3.4 L Chloride 102 Carbon Dioxide 34.0 H Anion Gap 4 L BUN 14 Creatinine 0.69 Estim Creat Clear Calc 38.37 Est GFR (MDRD) Af Amer 107 Est GFR (MDRD) Non-Af 89 BUN/Creatinine Ratio 20.2 H Glucose 190 H Calcium 8.9 - Medical Decision Making Concern patient has pressure sore with infection. Will obtain CBC and BMP. CBC to assess white count and differential. Basic minimal panel to assess glucose and she has type 1 diabetes as well as renal function. Initially CT of the pelvis with IV contrast was ordered. I was informed that she had anaphylactic reaction to IV contrast. For this reason the CAT scan was done without contrast. There is no obvious abnormality noted. Will treat with clindamycin and ciprofloxacin based on patient's numerous antibiotic allergies. ED Disposition - Plan for ED Patient: Disposition: Home or Assisted Living Diagnosis: Cellulitis of multiple sites of buttock, Pressure sore on sacrum Instructions: Discharge Instructions for Pressure Ulcer, ED Infec Skin Cellulitis Prescriptions: Ciprofloxacin [Cipro] 500 mg PO BID #14 tab Clindamycin HCl [Cleocin] 300 mg PO Q6H #28 cap Referrals: Zabrina Bain MD [Primary Care Provider] - 2 Days for wound check
[2018-08-15] MEDS: Clindamycin HCl 150 MG Capsule 300 MG PO (15:38)
[2018-08-15] MEDS: Ciprofloxacin 500 MG Tablet PO (15:38)
== END 2018-08-15 15:45 | disposition home or self-care (01) ==
PROVIDERS: Emergency Provider Emergency Medicine; Family Provider Internal Medicine; PCP Internal Medicine
DX: L89.159 Pressure ulcer of sacral region, unspecified stage (principal); L08.89 Other specified local infections of the skin and subcutaneous tissue; B95.2 Enterococcus as the cause of diseases classified elsewhere; L03.317 Cellulitis of buttock; J44.9 Chronic obstructive pulmonary disease, unspecified; E03.9 Hypothyroidism, unspecified; E78.5 Hyperlipidemia, unspecified; F32.9 Major depressive disorder, single episode, unspecified; F41.9 Anxiety disorder, unspecified; E66.01 Morbid (severe) obesity due to excess calories; E10.9 Type 1 diabetes mellitus without complications; I35.0 Nonrheumatic aortic (valve) stenosis; K58.9 Irritable bowel syndrome, unspecified; I10 Essential (primary) hypertension; Z68.42 Body mass index [BMI] 45.0-49.9, adult; Z79.4 Long term (current) use of insulin; Z79.84 Long term (current) use of oral hypoglycemic drugs; Z79.899 Other long term (current) drug therapy; Z87.891 Personal history of nicotine dependence
CPT/HCPCS: 72192; 80048; 85025; 99284; J7040; A4216

== ENCOUNTER → 2018-09-03 15:47 | Outpatient (CLI) | payer MEDICARE, SELFPAY ==
[2018-08-15 11:55] VITALS: BMI 45.3
== END ==
PROVIDERS: Family Provider Internal Medicine; PCP Internal Medicine; Referring Provider Otolaryngology Otolaryngology/Facial Plastic Surgery; Visit Provider Otolaryngology Otolaryngology/Facial Plastic Surgery
DX: J02.9 Acute pharyngitis, unspecified (principal)
CPT/HCPCS: 87070; 87077; 87186

== ENCOUNTER 2018-09-08 08:18 | Day surgery (SDC) | payer MEDICARE, SELFPAY ==
[2018-09-08] VITALS (8 sets, daily range): BP systolic 138–156; BP diastolic 52–79; PULSE 75–82; RESP 18; TEMP 36.2–36.7; O2SAT 94–98; BMI 43.4
[2018-09-08 09:06] LABS: Bedside Glucose 209 mg/dL (70-110)
--- NOTE | 2018-09-08 09:50 | RAD_ITS ---
PROCEDURE: Right L3 S1 facet joint injection. DATE OF EXAMINATION: September 08, 2018. INDICATION: Female, 73 years old. Chronic low back pain. FLUOROSCOPY TIME (if supplied): (0:18) minutes/seconds. 4 intraoperative views were obtained. RAD/L/S Spine Min 4 Views IMPRESSION: Intraoperative imaging provided for right L3 S1 facet joint block. Electronically Signed: Raghu Arnett, at 15:05 EDT , Service support ,
[2018-09-08] MEDS: MethylPREDNISolone Acetate 80 MG/ML Vial (09:56)
[2018-09-08] MEDS: Bupivacaine 0.25% 30 ML Vial (09:56)
--- NOTE | 2018-09-08 10:25 | OP.PCM_ITS ---
Problem List (1) Degeneration of intervertebral disc of lumbosacral region Status: Chronic (2) Spondylosis of lumbosacral region without myelopathy or radiculopathy Status: Chronic Report of Operation Date of Procedure: 09/08/18 Pre-Operative Diagnosis: Lumbosacral spondylosis, lumbosacral degenerative disc disease, lumbar facet arthropathy Post-Operative Diagnosis: Lumbosacral spondylosis, lumbosacral degenerative disc disease, lumbar facet arthropathy Surgery/Procedure Performed:: Right sided lumbar facet steroid injection L3, L4, L5, S1 Description of Surgical Findings:: PROCEDURE: Right-sided lumbar facet steroid injection L3, L4, L5, S1 PREOPERATIVE DIAGNOSIS: Lumbosacral spondylosis, lumbosacral degenerative disc disease, and lumbar facet arthropathy POSTOPERATIVE DIAGNOSIS: Lumbosacral spondylosis, lumbosacral degenerative disc disease, and lumbar facet arthropathy ANESTHESIA: MAC COMPLICATIONS: None BLOOD LOSS: Minimal PROCEDURE IN DETAIL: History and physical today was reviewed. Risks and benefits of the procedure were explained. The patient understood, agreed to our procedure, and informed consent was obtained. IV inserted per routine protocol. The patient was taken to the operating room, placed in a prone position with a pillow positioned underneath the abdomen. The right side of the lower back was prepped and draped in a sterile fashion using iodine x3. Under fluoroscopy guidance, on AP view, L3 through S1 vertebral bodies were visualized. Skin and subcutaneous tissues were anesthetized with approximately 5 mL of 1% lidocaine using a 25-gauge regular needle. Under direct visualization with fluoroscopy at approximately 25-degree angle, starting on the right L3, ending on the right S1, passing throu gh the L4-L5 using a 22-gauge 3 1/2-inch spinal needle, the needle was advanced via the skin. The tip of the needle was maneuvered and directed towards the superior and medial gutter of the transverse process at the vicinity of the medial branch. Once the tip of the needle was in contact with the bone, the needle pulled approximately 2 mm off the bone. After negative aspiration of blood with CSF and confirmation of AP as well as oblique view, a total of 8 mL of preservative-free 0.25% Marcaine with 80 mg of Depo- Medrol was injection in divided doses between those 4 levels. The needles were then removed intact. The patient experienced no signs or symptoms intrathecal, intravascular injection. The patient experienced no paraesthesia. The procedure was completed without any apparent difficult, any complication. The patient appeared to tolerate well. ASSESSMENT AND PLAN: This is a 73-year-old female with lumbosacral spondylosis, lumbosacral degenerative disc disease, and lumbar facet arthropathy, status post right-sided lumbar facet steroid injection L3 through S1. The patient will continue her current medications. The patient will follow in approximately 2 weeks for reevaluation.
== END 2018-09-08 11:19 | disposition home or self-care (01) ==
LOC: SDC 08:20 → AC 08:21
PROVIDERS: Family Provider Internal Medicine; PCP Internal Medicine; Referring Provider Anesthesiology Pain Medicine; Visit Provider Anesthesiology Pain Medicine
PROC: 3E0T3BZ Introduction of Anesthetic Agent into Peripheral Nerves and Plexi, Percutaneous Approach (ICD-10-PCS; CPT 64493; principal; 2018-09-08 09:45)
DX: M47.817 Spondylosis without myelopathy or radiculopathy, lumbosacral region (principal); M51.37 Other intervertebral disc degeneration, lumbosacral region; M46.86 Other specified inflammatory spondylopathies,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; I25.10 Atherosclerotic heart disease of native coronary artery without angina pectoris; I11.0 Hypertensive heart disease with heart failure; I50.9 Heart failure, unspecified; E11.9 Type 2 diabetes mellitus without complications; J43.9 Emphysema, unspecified; J45.909 Unspecified asthma, uncomplicated; K21.9 Gastro-esophageal reflux disease without esophagitis; E78.00 Pure hypercholesterolemia, unspecified; C85.90 Non-Hodgkin lymphoma, unspecified, unspecified site; F32.9 Major depressive disorder, single episode, unspecified; F41.9 Anxiety disorder, unspecified; E06.3 Autoimmune thyroiditis; G47.33 Obstructive sleep apnea (adult) (pediatric); K58.9 Irritable bowel syndrome, unspecified; Z79.891 Long term (current) use of opiate analgesic; Z79.4 Long term (current) use of insulin; Z79.84 Long term (current) use of oral hypoglycemic drugs; Z99.81 Dependence on supplemental oxygen; Z79.899 Other long term (current) drug therapy; Z87.891 Personal history of nicotine dependence
CPT/HCPCS: 64493; 64494; 64495; 64483; 72110; 82962; J7120; A4216

== ENCOUNTER 2018-09-11 23:24 | Inpatient (IN) | payer MEDICARE, SELFPAY ==
[2018-09-08 09:03] VITALS: BMI 43.4
[2018-09-11 23:24] VITALS: BP 163/68; PULSE 84; RESP 16; TEMP 36.9; O2SAT 94; BMI 43.2
[2018-09-12] VITALS (18 sets, daily range): BP systolic 128–182; BP diastolic 51–82; PULSE 67–84; RESP 16–20; TEMP 36.1–37.2; O2SAT 92–97; BMI 44.4
--- NOTE | 2018-09-12 01:10 | EKG12_ITS ---
Test Reason : SOB Blood Pressure : / mmHG Vent. Rate : 086 BPM Atrial Rate : 086 BPM P-R Int : 184 ms QRS Dur : 090 ms QT Int : 402 ms P-R-T Axes : 061 005 070 degrees QTc Int : 481 ms Sinus rhythm with marked sinus arrhythmia Otherwise normal ECG Confirmed by JEFF REGALADO, NATALIE ([id number]), publishing editor JAYLEEN MUSE ([id number]) on 09/15/2018 1:19:49 PM Referred By: Jarred Burns Confirmed By:NATALIE AGUILAR MD
--- NOTE | 2018-09-12 01:11 | ED.DCSUM_ITS ---
- ER Visit Summary Date of Service: 09/12/18 Chief Complaint: Multiple complaints History of Present Illness: The patient is a 73 F who presents with multiple complaints. It is difficult to obtain a clear history. She is a poor informant. She complains of diarrhea and nausea for 2 days. She had reported abdominal pain to triage but denies any pain to me and states that she just nausea. She also complains of feeling short of breath for the past week as well as increased edema in her feet. She was recently started on antibiotics for a throat infection and swollen glands. She is still on Levaquin. She denies any fevers chest pain vomiting. Physical Examination: Afebrile blood pressure 163/68 pulse ox 94% on 3 L Moist mucous membranes Heart regular rate and rhythm Lungs are clear no rales rhonchi wheezing Abdomen is soft nontender nondistended she complains of increased nausea with palpation in the epigastric region Alert Patient does have bilateral symmetric edema of the feet Test Results: EKG shows sinus rhythm at a rate of 86. Normal intervals. Normal axis. Labs are notable for white count 12.1, potassium 2.2. Troponin negative. BNP is normal. Chest x-ray shows no acute process. Emergency Department Course and Treatment: Patient was given IV fluids. Given the severity of her hypokalemia she was given both oral and IV potassium chloride and will be discussed with the hospitalist. Additionally I have ordered stool studies. Treatment Plan: [] Disposition: Admit Impression: Severe hypokalemia Diarrhea This note was generated with [employer] dictation software. It may contain incorrect words, spelling, and punctuation that were not noted in review of the chart prior to signing ED Disposition - Plan for ED Patient: Referrals: Zabrina Bain MD [Primary Care Provider] -
[2018-09-12 01:23] LABS: Absolute Lymphocyte Count 1.51 X10^3/ul (0.83-4.51); Absolute Neutrophil Count 9.7 X10^3/uL (2.0-7.7); Basophil# 0.02 X10^3/uL; Basophil% 0.2 % (0-1); Eosinophil# 0.09 X10^3/uL; Eosinophils% 0.7 % (0-5); Hematocrit 38.4 % (37-47); Hemoglobin 12.5 g/dl (12.0-15.0); Lymphocyte # 1.51 X10^3/ul (4.0); Lymphocyte % 12.4 % (19-41); Mean Corp Hgb Conc 32.6 g/gl (32-36); Mean Corpuscular Hgb 29.5 pg (27.0-32.0); Mean Corpuscular Volume 90.6 fL (81-99); Mean Platelet Vol. 10.5 fl (6.2-12.0); Monocyte# 0.79 X10^3/uL; Monocyte% 6.5 % (0-10); Neutrophil # 9.66 X10^3/uL (2.7-7.7); Neutrophil % 79.6 % (47-70); Platelet Count 269 K/mm3 (150-450); RBC Distribution Width CV 14.7 % (11.6-14.6); RBC Distribution Width SD 47.4 fl (35.1-43.9); Red Blood Count 4.24 M/mm3 (4.2-5.4); White Blood Count 12.1 K/mm3 (4.4-11.0)
[2018-09-12 01:24] LABS: POSITIVE COUNT NO; POSITIVE DIFFERENTIAL NO
--- NOTE | 2018-09-12 01:30 | RAD_ITS ---
STUDY: X-RAY CHEST REASON FOR EXAM: Female, 73 years old. Abdomen pain. Diarrhea TECHNIQUE: Single AP portable view of the chest. COMPARISON: None. FINDINGS: MediPort is seen on the left side, the tip of the catheter is at the cavoatrial junction. The lungs are clear and expanded. There is no demonstrated pleural abnormality. Normal size heart. Normal mediastinum and osvaldo. Normal visualized pulmonary arteries. There is atherosclerotic tortuosity of the aortic arch and descending thoracic aorta. Normal visualized thoracic spine. There is degenerative osteoarthritis of the bilateral shoulders. There is no demonstrated abnormality of the visualized soft tissue structures of the upper abdomen. RAD/Chest PA and Lateral IMPRESSION: Degenerative changes, as described above. No demonstrated acute cardiopulmonary process. Electronically Signed: Osmel Goldsmith, at 2:31 EDT Tel , Service support ,
[2018-09-12 01:38] LABS: Anion Gap 5 (5-15); BUN 10 mg/dL (7-18); BUN/Creat Ratio 13.4 RATIO (10-20); Calcium,Total 8.1 mg/dL (8.5-10.1); Chloride 99 mmol/L (98-107); Creatinine, Serum 0.75 mg/dL (0.55-1.02); EST Glomerular Filtration Rate 81 mL/min (>60); Est Glom Filt Rate - Afr Amer 98 mL/min (>60); Estimated Creatinine Clearance 38.37 ml/min; Glucose 206 mg/dL (74-106); Potassium 2.2 mmol/L (3.5-5.1); Sodium Level 142 mmol/L (136-145)
--- NOTE | 2018-09-12 01:39 | ED.RN ---
DR. HOOD INFORMED OF POTASSIUM 2.2. PT ON WRINGER AND SETTER. WILL CONTINUE TO MONITOR.
[2018-09-12 01:50] LABS: BNP,B-Type NATRIURETIC PEPTIDE 68.6 pg/mL (0-100)
[2018-09-12] MEDS: Potassium Chloride 10mEq/100mL 10 MEQ/100 ML IV.SOLN. 100 MEQ IV BOLUS ×4 (03:02→06:21)
--- NOTE | 2018-09-12 03:58 | VDLE_ITS ---
Reason For Study: swelling Procedure LEFT Exam performed portable in patient room. GSV is normal. The exam was of fair technical quality due CFV is compressible, spontaneous, phasic, to pt body habitus. competent, and demonstrates normal A preliminary report was called and/or faxed augmentation. to Julio FERRARO. FV is compressible, spontaneous, phasic, competent and demonstrates normal augmentation. POP V is compressible, spontaneous, phasic, competent and demonstrates normal augmentation. T/P Trunk is compressible. PTV is compressible. LT PerV is compressible. Interpretation Summary Deep veins of the left lower extremity are patent and compressible segmentally. There is no evidence of left lower extremity deep vein thrombosis. Valvular competence appears intact within the proximal deep venous system on the left . The left greater saphenous vein appears patent and compressible segmentally. Ordering Physician: Jarred Burns Performed By: Eddie Crandall RVT
--- NOTE | 2018-09-12 03:59 | PCM.HP.STD ---
Problem List (1) Hypokalemia Status: Acute (2) Diarrhea Status: Acute History of Present Illness Date of Admission: 09/12/18 Chief Complaint: diarrhea The patient is a 73 year old F with a significant COPD on [id number] home oxygen; lymphoma status post remission; obstructive sleep apnea on BiPAP; heart failure who presented to the emergency department with 2-day history of loose and multiple stools. Associated symptoms is vomiting. However patient does not have classic vomiting but she still having she drinks cold water she thinks to vomit it out. She reports pain in the left side of her abdomen. At baseline she takes azithromycin every day for COPD. Recently she was started on Levaquin for throat infection. So far she has taken 3 doses of a 500 mg daily Levaquin and has 4 more doses left. She reports allergy reaction of hives to multiple antibiotics including Bactrim, Augmentin and Flagyl. She reports bilateral leg swelling with left leg greater than right leg. Also she reports abdominal swelling. The emergency department patient was found to have severely low potassium and she was started on potassium as well as IV potassium. Of note she takes Lasix 80 mg twice daily for heart failure. 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) Antihyperlipidemic Nonrheumatic aortic valve stenosis (Chronic) Nonrheumatic mitral valve insufficiency (Chronic) Heart failure (Chronic) Non Hodgkin's lymphoma (Chronic) Anxiety (Chronic) Depression (Chronic) Hypertension (Chronic) Hyperlipidemia (Chronic) Chronic respiratory failure (Chronic) copd 3 liters continuous Hypothyroidism (Chronic) GERD (gastroesophageal reflux disease) (Chronic) Diabetes mellitus, type II (Chronic) Benign essential HTN (Chronic) Sleep apnea (Chronic) Fatty liver disease, nonalcoholic (Chronic) Sjogren's syndrome (Chronic) Diverticulosis (Chronic) Mild aortic stenosis (Chronic) Super obesity (Chronic) bmi 48 Medical History: Medical History (Last Reviewed 09/12/18 @ 05:36 by Jarerd Burns MD) Nonrheumatic aortic valve stenosis (Chronic) I35.0 Nonrheumatic mitral valve insufficiency (Chronic) I34.0 Heart failure (Chronic) I50.9 Hypertension (Chronic) I10 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 Breast pain, left N64.4 CHF (congestive heart failure) I50.9 Chronic obstructive pulmonary disease J44.9 Dyspnea on exertion R06.09 Neck pain M54.2 SCOTTY (obstructive sleep apnea) G47.33 Pseudomonas aeruginosa infection A49.8 Allergies adhesive Allergy (Verified 09/11/18 23:28) Itching adhesive tape Allergy (Verified 09/11/18 23:28) Rash amoxicillin trihydrate [From Augmentin] Allergy (Verified 09/11/18 23:28) Hives Iodinated Contrast- Oral and IV Dye Allergy (Verified 09/11/18 23:28) Unknown latex Allergy (Verified 09/11/18 23:28) Rash Latex, Natural Rubber Allergy (Verified 09/11/18 23:28) Rash metronidazole [From Flagyl] Allergy (Verified 09/11/18 23:28) Hives Metronidazole HCl [From Flagyl] Allergy (Verified 09/11/18 23:28) Hives Penicillins [PCN] Allergy (Verified 09/11/18 23:28) Hives potassium clavulanate [From Augmentin] Allergy (Verified 09/11/18 23:28) Hives sulfamethoxazole [From Bactrim] Allergy (Verified 09/11/18 23:28) Hives hives trimethoprim [From Bactrim] Allergy (Verified 09/11/18 23:28) Hives hives diphenhydramine HCl [From Benadryl] Adverse Reaction (Verified 09/11/18 23:28) i could crawl to the ceiling i could crawl the ceiling omeprazole Adverse Reaction (Verified 09/11/18 23:28) Nausea promethazine HCl [From Phenergan] Adverse Reaction (Verified 09/11/18 23:28) Nausea antihistamine Allergy (Uncoded 09/11/18 23:28) i could crawl to the ceiling crawl the ceiling Home Medications: Ambulatory Orders Medication Instructions Recorded Albuterol Inhaler [Ventolin Hfa] 2 puff INHALATION Q6H PRN PRN 06/29/14 Levothyroxine [Synthroid] 25 mcg PO DAILY 06/29/14 Montelukast [Singulair] 10 mg PO QHS 06/29/14 Pantoprazole Sodium [Protonix] 40 mg PO BID 06/29/14 Sertraline HCl [Zoloft] 200 mg PO DAILY 06/29/14 Albuterol Aerosols [Ventolin 2.5 mg INHALATION Q4H PRN PRN 08/20/14 Aerosols] Insulin Detemir [Levemir FlexPen] 15 units SUBCUT BID 01/26/15 Atorvastatin Calcium [Lipitor] 40 mg PO QHS 09/18/15 Fluticasone 0.05% [Flonase Nasal 2 spray NASAL QHS 09/18/15 Bandy] Liraglutide [Victoza 2-Yan] 1.8 mg SQ DAILY 09/18/15 Pregabalin [Lyrica] 50 mg PO TID 09/18/15 traZODone [Desyrel] 150 mg PO QHS 11/26/16 Loperamide [Imodium] 2 mg PO BID PRN PRN 12/03/16 Acetaminophen [Tylenol] 1,000 mg PO BID 10/11/17 Furosemide [Lasix] 80 mg PO BID 10/11/17 Hydrocodone/Acetaminophen 1 tab PO Q6H PRN PRN 10/11/17 [Hydrocodone-Acetamin 5-325 mg] Lisinopril [Zestril] 5 mg PO DAILY 10/11/17 Metoprolol Succinate [Toprol Xl] 50 mg PO BID 10/11/17 Multivitamin [Multiple Vitamins] 1 tab PO DAILY 10/11/17 Insulin Lispro [Humalog KwikPen] 8 unit SQ BREAKFAST 11/18/17 Insulin Lispro [Humalog KwikPen] 8 units SQ LUNCH 11/18/17 Insulin Lispro [Humalog KwikPen] 12 unit SQ DINNER 11/18/17 Magnesium Oxide [Magnesium] 400 mg PO DAILY 11/18/17 Spironolactone [Aldactone] 25 mg PO BID 03/13/18 Guaifenesin [Mucinex] 1,200 mg PO BID 03/31/18 Mupirocin Calcium [Bactroban Cream] 1 applic TOPICAL BID PRN 03/31/18 Nystatin Powder [Mycostatin Powder] 1 applic TOPICAL 4X/DAY PRN 03/31/18 Ondansetron [Zofran Odt] 4 mg PO Q8H PRN PRN #10 tab 07/07/18 Azithromycin 250 mg PO DAILY 07/29/18 Metformin HCl 1,000 mg PO QHS 07/29/18 Trilegy 1 puff INHALATION DAILY 07/29/18 busPIRone [Buspar] 15 mg PO BID 07/29/18 Clindamycin HCl [Cleocin] 300 mg PO Q6H #28 cap 08/15/18 Methocarbamol 500 mg PO BID 09/12/18 Oxybutynin [Ditropan] 5 mg PO TID 09/12/18 levoFLOXacin tablet [Levaquin 500 mg PO DAILY 09/12/18 tablet] Surgical History: Surgical History (Last Reviewed 09/12/18 @ 05:36 by Jarred Burns MD) H/O hemorrhoidectomy (Resolved) Z98.890 History of tonsillectomy (Resolved) Z90.89 S/P wrist surgery (Resolved) Z98.890 right Surgical History: - - Right breast hematoma removal, Left breast lumps removal, Right chest port, R Wrist surery, T+A, hemorrhoidectomy. 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 Smoking Status: Former smoker - *Family History Offspring Family History: Family History (Last Reviewed 09/12/18 @ 05:36 by Jarred Burns MD) Brother CAD (coronary artery disease) CVA (cerebral vascular accident) Brother Sudden cardiac Brother CAD (coronary artery disease) Mother Heart disease Father Brain aneurysm History Items: Cancer, Diabetes, Hypertension Maternal Family History: Family History (Last Reviewed 09/12/18 @ 05:36 by Jarred Burns MD) Brother CAD (coronary artery disease) CVA (cerebral vascular accident) Brother Sudden cardiac Brother CAD (coronary artery disease) Mother Heart disease Father Brain aneurysm History Items: - Sibling Family History: Family History (Last Reviewed 09/12/18 @ 05:36 by Jarred Burns MD) Brother CAD (coronary artery disease) CVA (cerebral vascular accident) Brother Sudden cardiac Brother CAD (coronary artery disease) Mother Heart disease Father Brain aneurysm History Items: - Review of Systems Constitutional: Denies: Chills, Fever HEENT: Denies: Head Aches, Sinus Congestion, Sinus Drainage Cardiovascular: Reports: Edema - bilateral legs; left worse than right.. Denies: Chest Pain, Palpitations Respiratory: Denies: Cough, Shortness of breath at rest, Sputum production Gastrointestinal: Reports: Abdominal Pain, Diarrhea, Nausea, Vomiting Genitourinary: Denies: Dysuria Musculoskeletal: Denies: Joint Pain, Joint Tenderness Skin: Denies: Rash, Wounds Neurological: Denies: Numbness, Tingling, Focal weakness Psychiatric: Denies: Anxiety, Depression, Homicidal Ideations, Suicidal Ideations Hematologic/ Lymphatic: Denies: Easy Bruising, Easy Bleeding VTE Information - Inpt Only VTE Present on Admission: No VTE Mechan Device Prophylaxis: None VTE Pharm Prophylaxis ordered?: Yes Patient Problems: Active and Suspected Problems (Last Reviewed 12/18/17 @ 10:56 by Sruthi Flores) Hypokalemia (Acute) Diarrhea (Acute) - Physical Exam General: Alert, Oriented x3, Cooperative HEENT: Atraumatic, PERRLA, EOMI, Normocephalic Neck: Supple, No JVD, Negative Carotid Bruits Lungs: Clear to auscultation, Normal air movement Cardiovascular: Regular rate, No murmurs Abdomen: Bowel Sounds Present, Soft, Non Tender Extremities: No edema, Capillary Refill Less than 3 Seconds Skin: Excoriated - mild, on buttocks. Musculoskeletal: No Tenderness to Palpation of Joints or Extremities Neurological: Cranial nerves II-XII grossly intact Psych/Mental Status: Normal Affect, Appropriate Vital Signs Temp Pulse Resp BP Pulse Ox 98.4 F 77 18 163/73 H 96 09/11/18 23:24 09/12/18 02:06 09/12/18 02:06 09/12/18 02:06 09/12/18 02:06 Oxygen Flow Rate (L/min) 3 Oxygen Delivery Method Nasal Cannula Weight: 103.873 kg Body Mass Index (BMI) 43.2 Finger Stick Blood Glucose 204 Laboratory Tests Past 24 Hrs 09/12/18 09/12/18 09/12/18 00:51 00:51 00:51 WBC 12.1 H RBC 4.24 Hgb 12.5 Hct 38.4 MCV 90.6 MCH 29.5 MCHC 32.6 RDW 14.7 H RDW Differential 47.4 H Plt Count 269 MPV 10.5 Immature Gran % (Auto) 0.600 Neut % (Auto) 79.6 H Lymph % (Auto) 12.4 L [place] % (Auto) 6.5 Eos % (Auto) 0.7 Baso % (Auto) 0.2 Absolute Neuts (auto) 9.7 H Absolute Lymphs (auto) 1.51 Total Counted Not Reportable Sodium 142 Potassium 2.2 L* Chloride 99 Carbon Dioxide 38.0 H Anion Gap 5 BUN 10 Creatinine 0.75 Estim Creat Clear Calc 38.37 Est GFR (MDRD) Af Amer 98 Est GFR (MDRD) Non-Af 81 BUN/Creatinine Ratio 13.4 Glucose 206 H Calcium 8.1 L Troponin I < 0.015 B-Natriuretic Peptide 68.6 Assessment/Plan All Active Problems (Last Reviewed 12/18/17 @ 10:56 by Sruthi Flores) Gastroenteritis (Acute) Hypokalemia (Acute) Diarrhea (Acute) H/O hemorrhoidectomy (Resolved) History of tonsillectomy (Resolved) S/P wrist surgery (Resolved) Chest pain (Acute) Cervicalgia (Resolved) Hyperglycemia (Resolved) Recent urinary tract infection (Resolved) The patient is a 73 year old F with a significant COPD on [id number]-[id number] home oxygen; lymphoma status post remission; obstructive sleep apnea on BiPAP; heart failure who presented to the emergency department with 2-day history of loose and multiple stools; abdominal pain; and who was recently started on Levaquin for throat infection and is on high-dose Lasix with severe hypokalemia. Severe hypokalemia On presentation her potassium was 2.2. Etiology of her hyperkalemia could be due to gastrointestinal losses from diarrhea superimposed on hypokalemia secondary to diuresis from Lasix. Will get a urine potassium. Check magnesium Received potassium supplementation IV and p.o. at the emergency department. We will continue potassium p.o.'s supplementation and trend K. Stop Lasix. Diarrhea Etiology could be from Levaquin use or gastroenteritis. Emergency department doctor ordered a C. difficile and enteric pathogen panel; follow We will stop Levaquin. Of note patient has a history of CHF. Lasix on hold at this time Throat infection With stopping Levaquin we will start patient on clindamycin. Of note patient has multiple allergies to antibiotics. Diabetes mellitus On presentation her blood glucose was not within goal. At home patient is on Victoza; metformin and Levemir. Victoza is nonformulary here. And because of her severe hypokalemia will hold off insulin at this time. Metformin continued. Accu-Chek q. before meals at bedtime Heart failure Aldactone continued. Lasix held secondary to hyperkalemia. Metoprolol and lisinopril continued Hypertension On presentation her blood pressure was not within goal Metoprolol, lisinopril and Aldactone continued. Of note Lasix is on hold because of severe hypokalemia. PRN hydralazine added. Trend blood pressure and adjust blood pressure medications. Left leg edema Venous Doppler ordered. COPD. On home Trilegy Albuterol prn continued. On home oxygen. Continue oxygen supplementation. Home azithromycin continued Obstructive Sleep apnea BiPAP continued Overactive bladder bladder Oxybutynin continued Pressure ulcer She reported that previously she was taking clindamycin for pressure ulcer of her bottom. But now she is using cream. Her buttocks looks only excoriated. Calmoseptine cream ordered. DVT prophylaxis Subcutaneous Lovenox Code Visit Inpatient E&M: 36365 Init Hosp L3
[2018-09-12 06:17] LABS: Magnesium 1.5 mg/dL (1.6-2.6)
[2018-09-12] MEDS: Pregabalin 50 MG Capsule PO ×3 (06:21→22:23)
[2018-09-12] MEDS: Oxybutynin 5 MG Tablet PO ×3 (06:21→22:23)
[2018-09-12] MEDS: Levothyroxine 25 MCG TABLET PO (06:21)
[2018-09-12] MEDS: hydrALAZINE 20 MG/ML Vial 5 MG IV (06:21)
[2018-09-12 06:45] LABS: Bedside Glucose 171 mg/dL (70-110)
[2018-09-12] MEDS: Ipratropium/Albuterol Sulfate 3 ML AMPUL.NEB INHALATION ×3 (07:08→20:00)
[2018-09-12] MEDS: Budesonide Respules 0.5 MG/2 ML AMPUL.NEB. INHALATION ×2 (07:08→20:00)
[2018-09-12] MEDS: Potassium Chloride 20mEq/100mL 20 MEQ/100 ML IV.SOLN. 100 MEQ IV BOLUS ×2 (08:19→09:53)
[2018-09-12] MEDS: Enoxaparin 40 MG/0.4 ML Syringe SC (09:55)
[2018-09-12] MEDS: Azithromycin 250 MG Tablet PO (09:56)
[2018-09-12] MEDS: Methocarbamol 500 MG Tablet PO ×2 (09:56→22:23)
[2018-09-12] MEDS: Magnesium Oxide 400 MG Tablet PO (09:56)
[2018-09-12] MEDS: Pantoprazole Sodium 40 MG Tablet PO ×2 (09:56→22:23)
[2018-09-12] MEDS: Multivitamins,Therapeutic Tablet 1 TABLET PO (09:56)
[2018-09-12] MEDS: Lisinopril 5 MG Tablet PO (09:56)
[2018-09-12] MEDS: Spironolactone 25 MG Tablet PO ×2 (09:56→22:23)
[2018-09-12] MEDS: Sertraline 100 MG Tablet 200 MG PO (09:56)
[2018-09-12] MEDS: Acetaminophen 500 MG Tablet 1000 MG PO ×2 (09:56→22:24)
[2018-09-12] MEDS: guaiFENesin 1,200 MG Tablet 1200 MG PO ×2 (09:56→22:24)
[2018-09-12] MEDS: Clindamycin HCl 150 MG Capsule 600 MG PO ×2 (09:57→13:38)
[2018-09-12] MEDS: Metoprolol(XL)Succ 50 MG Tablet PO ×2 (09:57→22:24)
[2018-09-12] MEDS: busPIRone 15 MG TABLET PO ×2 (09:57→22:24)
[2018-09-12] MEDS: Menthol/Lanolin/Calamine/Znox 113 GM Tube 1 APPLIC TOPICAL ×2 (09:58→22:33)
[2018-09-12] MEDS: Glucerna Shake 120 ML LIQUID PO (10:11)
--- NOTE | 2018-09-12 12:12 | PN_ITS ---
Patient Problems: Active and Suspected Problems (Last Reviewed 09/12/18 @ 05:36 by Jarred Burns MD) Hypokalemia (Acute) Diarrhea (Acute) Subjective: Patient seen and examined. Diarrhea improved this morning. Complains of mild left-sided abdominal tenderness. Complains of generalized weakness. Denies other current complaints. - Physical Exam General: Alert, Oriented x3, Cooperative HEENT: Atraumatic, PERRLA, EOMI, Normocephalic Neck: Supple, No JVD, Negative Carotid Bruits Lungs: Clear to auscultation, Normal air movement Cardiovascular: Regular rate, Regular Rhythm, Normal S1, Normal S2, No murmurs Abdomen: Bowel Sounds Present, Soft, Non-Distended, Obese, Tender - LUQ, LLQ Extremities: No clubbing, No cyanosis, No edema, Capillary Refill Less than 3 Seconds Skin: No rashes, No breakdown Musculoskeletal: No Tenderness to Palpation of Joints or Extremities Neurological: Cranial nerves II-XII grossly intact, Neuro grossly intact Psych/Mental Status: Normal Affect, Appropriate Vital Signs Temp Pulse Resp BP Pulse Ox 97 F L 76 20 H 152/62 H 96 09/12/18 11:59 09/12/18 11:59 09/12/18 11:59 09/12/18 11:59 09/12/18 11:59 Oxygen Flow Rate (L/min) 3 Oxygen Delivery Method Nasal Cannula Weight: 235 lb 3.732 oz Body Mass Index (BMI) 44.4 Finger Stick Blood Glucose 204 Intake and Output for Last 24 Hours 09/10/18 09/11/18 09/12/18 23:59 23:59 23:59 Intake Total 683 / 683 Output Total 300 / 300 Balance 383 / 383 Laboratory Tests Past 24 Hrs 09/12/18 09/12/18 09/12/18 00:51 00:51 00:51 WBC 12.1 H RBC 4.24 Hgb 12.5 Hct 38.4 MCV 90.6 MCH 29.5 MCHC 32.6 RDW 14.7 H RDW Differential 47.4 H Plt Count 269 MPV 10.5 Immature Gran % (Auto) 0.600 Neut % (Auto) 79.6 H Lymph % (Auto) 12.4 L [place] % (Auto) 6.5 Eos % (Auto) 0.7 Baso % (Auto) 0.2 Absolute Neuts (auto) 9.7 H Absolute Lymphs (auto) 1.51 Total Counted Not Reportable Sodium 142 Potassium 2.2 L* Chloride 99 Carbon Dioxide 38.0 H Anion Gap 5 BUN 10 Creatinine 0.75 Estim Creat Clear Calc 38.37 Est GFR (MDRD) Af Amer 98 Est GFR (MDRD) Non-Af 81 BUN/Creatinine Ratio 13.4 Glucose 206 H Calcium 8.1 L Magnesium Troponin I < 0.015 B-Natriuretic Peptide 68.6 09/12/18 00:51 WBC RBC Hgb Hct MCV MCH MCHC RDW RDW Differential Plt Count MPV Immature Gran % (Auto) Neut % (Auto) Lymph % (Auto) [place] % (Auto) Eos % (Auto) Baso % (Auto) Absolute Neuts (auto) Absolute Lymphs (auto) Total Counted Sodium Potassium Chloride Carbon Dioxide Anion Gap BUN Creatinine Estim Creat Clear Calc Est GFR (MDRD) Af Amer Est GFR (MDRD) Non-Af BUN/Creatinine Ratio Glucose Calcium Magnesium 1.5 L Troponin I B-Natriuretic Peptide POC Glucose 09/12/18 06:32 POC Glucose 171 H Medical Necessity - Tobacco Use Smoking Status: Former smoker Assessment/Plan All Active Problems (Last Reviewed 09/12/18 @ 05:36 by Jarred Burns MD) Gastroenteritis (Acute) Hypokalemia (Acute) Diarrhea (Acute) H/O hemorrhoidectomy (Resolved) History of tonsillectomy (Resolved) S/P wrist surgery (Resolved) Chest pain (Acute) Cervicalgia (Resolved) Hyperglycemia (Resolved) Recent urinary tract infection (Resolved) 1. Acute on chronic diarrhea-patient reports she has an extensive history of intermittent diarrhea with recent upper and lower scope 2 weeks ago. She reports diarrhea has increased severely over the past 2 days. She has a history of IBS and diverticulosis. Placed on Levaquin approximately 4 days ago for pharyngitis. C. difficile and enteric pathogen panel pending. PRN antiemetic regimen. IV fluids. Patient had EGD and colonoscopy in July 2017. Colonoscopy showed perianal hemorrhoids, 3 small polyps at the rectosigmoid colon, in the sigmoid colon and in the ascending colon which were resected. Entire examination of the colon was noted to be normal. Diverticulosis. Patient reports she had EGD as well, this is not seen in records. 2. Severe hypokalemia secondary to #1 in addition to Lasix regimen-replace per protocol. Repeat labs this afternoon and again in a.m. Lasix regimen on hold. 3. Buttocks excoriation secondary to persistent diarrhea-calmoseptine. No pressure ulcer noted. 4. Increased swelling left lower extremity-venous Doppler ultrasound completed, report pending. 5. Recent pharyngitis-reports she was placed on Levaquin by ENT, Dr. Forbes as outpatient. Patient completed 3 doses of Levaquin 500 mg daily. She was prescribed 7-day course. Hold further antibiotics. Obtain records from ENT including throat culture if obtained. Patient denies sore throats or other URI symptoms. Patient reports difficulty swallowing cold drinks. Speech therapy consult. 6. Chronic diastolic CHF-Lasix regimen on hold. Echocardiogram May 2014 with EF 60%, mild aortic stenosis, mild mitral valve insufficiency, mild tricuspid valve insufficiency. 7. Chronic hypoxic respiratory failure secondary to chronic COPD-on chronic azithromycin. On trilogy at home. No acute COPD exacerbation. Continue supplement oxygen to maintain O2 sat above 90%. As needed albuterol aerosol. 8. Type 2 diabetes [id number]-Aniek ACHS and sliding scale insulin. Hold h ome metformin regimen. 9. SCOTTY-BiPAP nightly. 10. Overactive bladder-continue home oxybutynin regimen. 11. Hypertension-stable, continue home metoprolol regimen. Lisinopril and diuretic regimen on hold given severe hypokalemia. 12. Hyperlipidemia-continue statin. 13. GERD-continue home Protonix regimen 40 mg twice daily. 14. Obesity-encouraged diet and lifestyle modifications. Nutrition consult. 15. Depression-continue home sertraline, buspirone regimen. 16. History of lymphoma-in remission. DVT prophylaxis-Lovenox subcu This patient was seen by HEBERT Huddleston under the supervision of Dr. Chaparro.
[2018-09-12 12:15] LABS: Bedside Glucose 257 mg/dL (70-110)
--- NOTE | 2018-09-12 12:47 | CASEMGMT ---
RN CM Assessment Presentation: Gastroenteritis, Hypokalemia Intro role of CM and purpose of RN CM assessment to patient in room. She is sitting in chair, awake, alert and able to participate in dc planning. Demographics, PCP and Pharmacy verified. Pt lives independently in ground floor apartment. States she is having more difficulty at home recently. States she is requesting CM for [employer] schedule aides on weekend, but they have not been able to staff. No family available to help on weekends. Pt states she manages at home and will not consider SNF stay. States she has called agencies to have aides for weekend, however she has not found any. RN CM let her know that unless this schedule through her [employer] CM or ordered by physician for skilled care, it would be self pay and pt states she cannot afford this. PCP: Dr. Bain [facility] [place] [facility] Prescription Benefit: yes LNOK: Daughter, Yun in [place] Living Arrangements: Lives in ground floor apartment. Transportation: caresource or friend DME: Rollator, Lift Chair, Bedside Commode, Grab Bars Tub/Shower HHC: [facility] ordered through [facility] for PT/OT, RN, aide. Pt is aware and agreeable to services on dc. SEE GREEN SHEET on chart for weekend dc details. Start of care planned for Saturday. [facility] PH: [phone] FX: [phone] [employer] Services: Veronica Albarran RN CM PH: [phone] Patient DC goals: Home DC PLAN: Home with resumption of [employer] service aides and [facility] services. Quinn ARENAS RN [facility]
[2018-09-12 13:36] LABS: Anion Gap 6 (5-15); BUN 10 mg/dL (7-18); BUN/Creat Ratio 15.7 RATIO (10-20); Calcium,Total 8.5 mg/dL (8.5-10.1); Chloride 99 mmol/L (98-107); Creatinine, Serum 0.64 mg/dL (0.55-1.02); EST Glomerular Filtration Rate 98 mL/min (>60); Est Glom Filt Rate - Afr Amer 118 mL/min (>60); Estimated Creatinine Clearance 38.37 ml/min; Glucose 213 mg/dL (74-106); Magnesium 2.6 mg/dL (1.6-2.6); Potassium 3.1 mmol/L (3.5-5.1); Sodium Level 143 mmol/L (136-145)
[2018-09-12] MEDS: Ondansetron ODT 4 MG Tablet PO (13:44)
[2018-09-12] MEDS: 0.9% NaCl VAD Flush IV (13:47)
[2018-09-12] MEDS: levoFLOXacin 500 MG Tablet PO (16:30)
[2018-09-12] MEDS: Insulin Lispro 100 UNIT/ML INSULN.PEN SC ×2 (16:40→22:21)
[2018-09-12 16:46] LABS: Bedside Glucose 272 mg/dL (70-110)
[2018-09-12] MEDS: Atorvastatin Calcium 40 MG Tablet PO (22:23)
[2018-09-12] MEDS: Montelukast 10 MG Tablet PO (22:23)
[2018-09-12] MEDS: traZODone 100 MG Tablet 150 MG PO (22:23)
[2018-09-12] MEDS: Fluticasone 0.05% 1 SPRAY NASAL.SRY 2 SPRAY NASAL (22:26)
[2018-09-12 22:45] LABS: Bedside Glucose 206 mg/dL (70-110)
[2018-09-12] MEDS: HYDROcodone Bitartrate/Apap 5/325 Tablet PO (23:32)
[2018-09-13] VITALS (9 sets, daily range): BP systolic 144–155; BP diastolic 62–74; PULSE 60–85; RESP 16–18; TEMP 36.2–36.8; O2SAT 93–96
[2018-09-13] MEDS: 0.9% NaCl VAD Flush IV ×2 (06:30→15:44)
[2018-09-13] MEDS: Levothyroxine 25 MCG TABLET PO (06:31)
[2018-09-13] MEDS: Pregabalin 50 MG Capsule PO ×2 (06:31→15:21)
[2018-09-13] MEDS: levoFLOXacin 250 MG Tablet PO (06:31)
[2018-09-13] MEDS: Oxybutynin 5 MG Tablet PO ×2 (06:31→15:21)
[2018-09-13 06:34] LABS: Hematocrit 36.5 % (37-47); Hemoglobin 11.5 g/dl (12.0-15.0); Mean Corp Hgb Conc 31.5 g/gl (32-36); Mean Corpuscular Hgb 29.1 pg (27.0-32.0); Mean Corpuscular Volume 92.4 fL (81-99); Platelet Count 215 K/mm3 (150-450); RBC Distribution Width CV 14.8 % (11.6-14.6); RBC Distribution Width SD 48.6 fl (35.1-43.9); Red Blood Count 3.95 M/mm3 (4.2-5.4); White Blood Count 7.7 K/mm3 (4.4-11.0)
[2018-09-13 06:36] LABS: Scan Indicated on CBC? Y/N NO
[2018-09-13] MEDS: Insulin Lispro 100 UNIT/ML INSULN.PEN SC ×2 (06:38→12:16)
[2018-09-13 06:45] LABS: Bedside Glucose 182 mg/dL (70-110)
[2018-09-13] MEDS: Budesonide Respules 0.5 MG/2 ML AMPUL.NEB. INHALATION (06:49)
[2018-09-13] MEDS: Ipratropium/Albuterol Sulfate 3 ML AMPUL.NEB INHALATION ×2 (06:49→12:55)
[2018-09-13 07:06] LABS: Anion Gap 7 (5-15); BUN 10 mg/dL (7-18); BUN/Creat Ratio 16.4 RATIO (10-20); Calcium,Total 8.6 mg/dL (8.5-10.1); Chloride 100 mmol/L (98-107); Creatinine, Serum 0.61 mg/dL (0.55-1.02); EST Glomerular Filtration Rate 102 mL/min (>60); Est Glom Filt Rate - Afr Amer 124 mL/min (>60); Estimated Creatinine Clearance 38.37 ml/min; Glucose 197 mg/dL (74-106); Potassium 3.1 mmol/L (3.5-5.1); Sodium Level 144 mmol/L (136-145)
[2018-09-13] MEDS: Metoprolol(XL)Succ 50 MG Tablet PO (09:10)
[2018-09-13] MEDS: Magnesium Oxide 400 MG Tablet PO (09:10)
[2018-09-13] MEDS: Methocarbamol 500 MG Tablet PO (09:10)
[2018-09-13] MEDS: Multivitamins,Therapeutic Tablet 1 TABLET PO (09:10)
[2018-09-13] MEDS: Pantoprazole Sodium 40 MG Tablet PO (09:10)
[2018-09-13] MEDS: Sertraline 100 MG Tablet 200 MG PO (09:10)
[2018-09-13] MEDS: guaiFENesin 1,200 MG Tablet 1200 MG PO (09:11)
[2018-09-13] MEDS: Lisinopril 5 MG Tablet PO (09:11)
[2018-09-13] MEDS: Spironolactone 25 MG Tablet PO (09:11)
[2018-09-13] MEDS: busPIRone 15 MG TABLET PO (09:11)
[2018-09-13] MEDS: Enoxaparin 40 MG/0.4 ML Syringe SC (09:11)
[2018-09-13] MEDS: Azithromycin 250 MG Tablet PO (09:11)
[2018-09-13] MEDS: Acetaminophen 500 MG Tablet 1000 MG PO (09:11)
[2018-09-13] MEDS: Menthol/Lanolin/Calamine/Znox 113 GM Tube 1 APPLIC TOPICAL (09:12)
--- NOTE | 2018-09-13 12:00 | DCINST_ITS ---
- Discharge Diagnoses Current Active Problems: Current Active and Chronic Problems (Last Reviewed 09/12/18 @ 05:36 by Jarred Burns MD) Hypokalemia (Acute) Diarrhea (Acute) You will use the following diet at home:: No restrictions Discharge Activity: Return to Normal Activity Call your doctor if you observe: Shortness of breath, Dizziness, Fainting spells, Chest pain Additional Instructions: Recommend replacing BIPAP/trilogy tubing as this may be related to recent throat infection. Recommend continued outpatient speech therapy evaluation. Allergies/Adverse Reactions: Allergies adhesive Allergy (Verified 09/11/18 23:28) Itching adhesive tape Allergy (Verified 09/11/18 23:28) Rash amoxicillin trihydrate [From Augmentin] Allergy (Verified 09/11/18 23:28) Hives Iodinated Contrast- Oral and IV Dye Allergy (Verified 09/12/18 04:53) Shortness of breath latex Allergy (Verified 09/11/18 23:28) Rash Latex, Natural Rubber Allergy (Verified 09/11/18 23:28) Rash metronidazole [From Flagyl] Allergy (Verified 09/11/18 23:28) Hives Metronidazole HCl [From Flagyl] Allergy (Verified 09/11/18 23:28) Hives Penicillins [PCN] Allergy (Verified 09/11/18 23:28) Hives potassium clavulanate [From Augmentin] Allergy (Verified 09/11/18 23:28) Hives sulfamethoxazole [From Bactrim] Allergy (Verified 09/11/18 23:28) Hives hives trimethoprim [From Bactrim] Allergy (Verified 09/11/18 23:28) Hives hives diphenhydramine HCl [From Benadryl] Adverse Reaction (Verified 09/11/18 23:28) i could crawl to the ceiling i could crawl the ceiling omeprazole Adverse Reaction (Verified 09/11/18 23:28) Nausea promethazine HCl [From Phenergan] Adverse Reaction (Verified 09/11/18 23:28) Nausea antihistamine Allergy (Uncoded 09/11/18 23:28) i could crawl to the ceiling crawl the ceiling Medications to take at Discharge Albuterol Inhaler [Ventolin Hfa] 2 puff INHALATION Q6H PRN PRN 06/29/14 Levothyroxine [Synthroid] 25 mcg PO DAILY 06/29/14 Montelukast [Singulair] 10 mg PO QHS 06/29/14 Pantoprazole Sodium [Protonix] 40 mg PO BID 06/29/14 Sertraline HCl [Zoloft] 200 mg PO DAILY 06/29/14 Albuterol Aerosols [Ventolin Aerosols] 2.5 mg INHALATION Q4H PRN PRN 08/20/14 Insulin Detemir [Levemir FlexPen] 15 units SUBCUT BID 01/26/15 Atorvastatin Calcium [Lipitor] 40 mg PO QHS 09/18/15 Fluticasone 0.05% [Flonase Nasal [place]] 2 spray NASAL QHS 09/18/15 Liraglutide [Victoza 2-Yan] 1.8 mg SQ DAILY 09/18/15 Pregabalin [Lyrica] 50 mg PO TID 09/18/15 traZODone [Desyrel] 150 mg PO QHS 11/26/16 Loperamide [Imodium] 2 mg PO BID PRN PRN 12/03/16 Acetaminophen [Tylenol] 1,000 mg PO BID 10/11/17 Furosemide [Lasix] 80 mg PO BID 10/11/17 Hydrocodone/Acetaminophen [Hydrocodone-Acetamin 5-325 mg] 1 tab PO Q6H PRN PRN 10/11/17 Lisinopril [Zestril] 5 mg PO DAILY 10/11/17 Metoprolol Succinate [Toprol Xl] 50 mg PO BID 10/11/17 Multivitamin [Multiple Vitamins] 1 tab PO DAILY 10/11/17 Insulin Lispro [Humalog KwikPen] 8 unit SQ BREAKFAST 11/18/17 Insulin Lispro [Humalog KwikPen] 8 units SQ LUNCH 11/18/17 Insulin Lispro [Humalog KwikPen] 12 unit SQ DINNER 11/18/17 Magnesium Oxide [Magnesium] 400 mg PO DAILY 11/18/17 Spironolactone [Aldactone] 25 mg PO BID 03/13/18 Guaifenesin [Mucinex] 1,200 mg PO BID 03/31/18 Mupirocin Calcium [Bactroban Cream] 1 applic TOPICAL BID PRN 03/31/18 Nystatin Powder [Mycostatin Powder] 1 applic TOPICAL 4X/DAY PRN 03/31/18 Ondansetron [Zofran Odt] 4 mg PO Q8H PRN PRN #10 tab 07/07/18 Azithromycin 250 mg PO DAILY 07/29/18 Metformin HCl 1,000 mg PO QHS 07/29/18 Trilegy 1 puff INHALATION DAILY 07/29/18 busPIRone [Buspar] 15 mg PO BID 07/29/18 Methocarbamol 500 mg PO BID 09/12/18 Oxybutynin [Ditropan] 5 mg PO TID 09/12/18 levoFLOXacin tablet [Levaquin tablet] 500 mg PO DAILY 09/12/18 Potassium Chloride [K-Dur] 40 meq PO BID #60 tab 09/13/18 The following prescriptions were given: Potassium Chloride [K-Dur] 40 meq PO BID #60 tab Transmission Status: Pending to [facility] Primary Care Physician: Zabrina Bain MD [Primary Care Provider] - Please follow up with your Primary Care Physician in: 1 Week Test Results: Test results from this visit will be discussed in further detail at your follow- up appointment, if applicable. Please Follow Up With: Sree Forbes MD When: 1 Week Proposed Discharge Date: 09/13/18
[2018-09-13 12:26] LABS: Bedside Glucose 228 mg/dL (70-110)
--- NOTE | 2018-09-13 12:33 | PCM.DC.SUM ---
<Kimmie Culp - Last Filed: 09/13/18 12:46> Discharge Date and Diagnosis Date of Admission: 09/12/18 Date of Discharge: 09/13/18 - Primary Discharge Diagnosis Active and Suspected Problems (Last Reviewed 09/12/18 @ 05:36 by Jarred Burns MD) 1. Acute on chronic diarrhea, suspected acute viral gastroenteritis 2. Severe hypokalemia secondary to #1 in addition to Lasix regimen 3. Buttocks excoriation secondary to persistent diarrhea 4. Increased swelling left lower extremity, DVT ruled out 5. Recent Pseudomonas and stenotrophomonas pharyngitis 6. Chronic diastolic CHF 7. Chronic hypoxic respiratory failure secondary to chronic COPD 8. Type 2 diabetes mellitus 9. SCOTTY 10. Overactive bladder 11. Hypertension 12. Hyperlipidemia 13. GERD 14. Obesity 15. Depression 16. History of lymphoma - Secondary Discharge Diagnosis Chronic Problems (Last Reviewed 09/12/18 @ 05:36 by Jarred Burns MD) Morbid obesity (Chronic) Chronic obstructive pulmonary disease (Chronic) IBS (irritable bowel syndrome) (Chronic) Degeneration of intervertebral disc of lumbosacral region (Chronic) Radiculopathy of lumbosacral region (Chronic) Spinal stenosis of lumbosacral region (Chronic) Primary osteoarthritis of right hip (Chronic) Spondylosis of lumbosacral region without myelopathy or radiculopathy (Chronic) correction use of drug (Chronic) Antihyperlipidemic Nonrheumatic aortic valve stenosis (Chronic) Nonrheumatic mitral valve insufficiency (Chronic) Heart failure (Chronic) Non Hodgkin's lymphoma (Chronic) Anxiety (Chronic) Depression (Chronic) Hypertension (Chronic) Hyperlipidemia (Chronic) Chronic respiratory failure (Chronic) copd 3 liters continuous Hypothyroidism (Chronic) GERD (gastroesophageal reflux disease) (Chronic) Diabetes mellitus, type II (Chronic) Benign essential HTN (Chronic) Sleep apnea (Chronic) Fatty liver disease, nonalcoholic (Chronic) Sjogren's syndrome (Chronic) Diverticulosis (Chronic) Mild aortic stenosis (Chronic) Super obesity (Chronic) bmi 48 Hospital Course and Treatment Imaging Results: Diagnostic Data Chest X-Ray 09/12/18 01:30 IMPRESSION: Degenerative changes, as described above. No demonstrated acute cardiopulmonary process. Electronically Signed: Osmel Goldsmith, at 2:31 EDT Tel , Service support , Operations: None Procedures: None Summary of Care Provided: The patient is a 73 year old F admitted 09/12/2018 due to intractable diarrhea. 1. Acute on chronic diarrhea-patient reports she has an extensive history of intermittent diarrhea with recent upper and lower scope July 2018. She reports diarrhea has increased severely over the past 2 days. She has a history of IBS and diverticulosis. Placed on Levaquin approximately 4 days ago for pharyngitis. C. difficile negative. Enteric pathogen panel pending and will be reviewed prior to discharge. Patient had EGD and colonoscopy in July 2018. Colonoscopy showed perianal hemorrhoids, 3 small polyps at the rectosigmoid colon, in the sigmoid colon and in the ascending colon which were resected. Entire examination of the colon was noted to be normal. Diverticulosis. Patient reports she had EGD as well, this is not seen in records. Patient reports EGD was normal. Diarrhea resolved at discharge. Recommend follow-up with primary care provider in 1 week. Follow-up with Dr. Bauer who completed prior scopes if diarrhea continues. 2. Severe hypokalemia secondary to #1 in addition to Lasix regimen-patient reports she has had intermittent hypokalemia in the past. Discharged on potassium 40 mEq twice daily. Patient will need repeat BMP within 1 week and recommend serial BMPs as outpatient by primary care provider with potassium supplementation adjustment as found appropriate. 3. Buttocks excoriation secondary to persistent diarrhea-calmoseptine. No pressure ulcer noted. 4. Increased swelling left lower extremity-venous Doppler ultrasound completed, negative for DVT. 5. Recent Pseudomonas and stenotrophomonas pharyngitis-placed on Levaquin by ENT, Dr. Forbes as outpatient. Patient reports difficulty swallowing cold drinks. Speech therapy consulted. Speech therapy did not note any overt signs or symptoms of aspiration however recommended continued outpatient speech therapy follow-up and evaluation. Patient will continue previously prescribed Levaquin regimen at discharge. Recommended patient replace trilogy/BiPAP tubing. Follow-up with ENT in 1 week. 6. Chronic diastolic CHF-Echocardiogram May 2014 with EF 60%, mild aortic stenosis, mild mitral valve insufficiency, mild tricuspid valve insufficiency. No acute exacerbation. 7. Chronic hypoxic respiratory failure secondary to chronic COPD-on chronic azithromycin. On trilogy at home. No acute COPD exacerbation. Continue supplement oxygen to maintain O2 sat above 90%. 8. Type 2 diabetes mellitus-continue home regimen. 9. SCOTTY-BiPAP nightly. 10. Overactive bladder-continue home oxybutynin regimen. 11. Hypertension-stable, continue home regimen. 12. Hyperlipidemia-continue statin. 13. GERD-continue home Protonix regimen 40 mg twice daily. 14. Obesity-encouraged diet and lifestyle modifications. Nutrition consult. 15. Depression-continue home sertraline, buspirone regimen. 16. History of lymphoma-in remission. General: Alert, Oriented x3, Cooperative HEENT: Atraumatic, PERRLA, EOMI, Normocephalic Neck: Supple, No JVD, Negative Carotid Bruits Lungs: Clear to auscultation, Normal air movement Cardiovascular: Regular rate, Regular Rhythm, Normal S1, Normal S2, No murmurs Abdomen: Bowel Sounds Present, Soft, Non-Distended, Obese, Tender - LUQ, LLQ Extremities: No clubbing, No cyanosis, No edema, Capillary Refill Less than 3 Seconds Skin: No rashes, No breakdown Musculoskeletal: No Tenderness to Palpation of Joints or Extremities Neurological: Cranial nerves II-XII grossly intact, Neuro grossly intact Psych/Mental Status: Normal Affect, Appropriate Patient seen and examined prior to discharge. Physical assessment as noted above. Patient is stable for discharge with follow up recommendations as noted above. This patient was seen by HEBERT Huddleston under the supervision of Dr. Chaparro. - Physical Exam Vital Signs Temp Pulse Resp BP Pulse Ox 97.1 F L 66 16 155/74 H 96 09/13/18 09:03 09/13/18 09:10 09/13/18 09:03 09/13/18 09:03 09/13/18 09:03 Oxygen Flow Rate (L/min) 3 Oxygen Delivery Method Nasal Cannula Weight: 235 lb 3.732 oz Body Mass Index (BMI) 44.4 Finger Stick Blood Glucose 204 Intake and Output for Last 24 Hours 09/11/18 09/12/18 09/13/18 23:59 23:59 23:59 Intake Total 923 / 1278 415 / 415 Output Total 300 / 300 Balance 623 / 978 415 / 415 Microbiology Past 72 Hours 09/12/18 20:30 C. difficile DNA Amplification - Final Stool Laboratory Tests Past 24 Hrs 09/12/18 09/13/18 09/13/18 13:00 06:15 06:15 WBC 7.7 RBC 3.95 L Hgb 11.5 L Hct 36.5 L MCV 92.4 MCH 29.1 MCHC 31.5 L RDW 14.8 H RDW Differential 48.6 H Plt Count 215 MPV 10.0 Sodium 143 144 Potassium 3.1 L 3.1 L Chloride 99 100 Carbon Dioxide 38.0 H 37.0 H Anion Gap 6 7 BUN 10 10 Creatinine 0.64 0.61 Estim Creat Clear Calc 38.37 38.37 Est GFR (MDRD) Af Amer 118 124 Est GFR (MDRD) Non-Af 98 102 BUN/Creatinine Ratio 15.7 16.4 Glucose 213 H 197 H Calcium 8.5 8.6 Magnesium 2.6 POC Glucose 09/13/18 09/13/18 09/12/18 12:13 06:36 22:02 POC Glucose 228 H 182 H 206 H 09/12/18 16:40 POC Glucose 272 H Discharge Diet: No Restrictions Discharge Activity: Return to Normal Activity Call your doctor if you observe: Shortness of breath, Dizziness, Fainting spells, Chest pain Home Medications: Medications to take at Discharge Albuterol Inhaler [Ventolin Hfa] 2 puff INHALATION Q6H PRN PRN 06/29/14 Levothyroxine [Synthroid] 25 mcg PO DAILY 06/29/14 Montelukast [Singulair] 10 mg PO QHS 06/29/14 Pantoprazole Sodium [Protonix] 40 mg PO BID 06/29/14 Sertraline HCl [Zoloft] 200 mg PO DAILY 06/29/14 Albuterol Aerosols [Ventolin Aerosols] 2.5 mg INHALATION Q4H PRN PRN 08/20/14 Insulin Detemir [Levemir FlexPen] 15 units SUBCUT BID 01/26/15 Atorvastatin Calcium [Lipitor] 40 mg PO QHS 09/18/15 Fluticasone 0.05% [Flonase Nasal [place]] 2 spray NASAL QHS 09/18/15 Liraglutide [Victoza 2-Yan] 1.8 mg SQ DAILY 09/18/15 Pregabalin [Lyrica] 50 mg PO TID 09/18/15 traZODone [Desyrel] 150 mg PO QHS 11/26/16 Loperamide [Imodium] 2 mg PO BID PRN PRN 12/03/16 Acetaminophen [Tylenol] 1,000 mg PO BID 10/11/17 Furosemide [Lasix] 80 mg PO BID 10/11/17 Hydrocodone/Acetaminophen [Hydrocodone-Acetamin 5-325 mg] 1 tab PO Q6H PRN PRN 10/11/17 Lisinopril [Zestril] 5 mg PO DAILY 10/11/17 Metoprolol Succinate [Toprol Xl] 50 mg PO BID 10/11/17 Multivitamin [Multiple Vitamins] 1 tab PO DAILY 10/11/17 Insulin Lispro [Humalog KwikPen] 8 unit SQ BREAKFAST 11/18/17 Insulin Lispro [Humalog KwikPen] 8 units SQ LUNCH 11/18/17 Insulin Lispro [Humalog KwikPen] 12 unit SQ DINNER 11/18/17 Magnesium Oxide [Magnesium] 400 mg PO DAILY 11/18/17 Spironolactone [Aldactone] 25 mg PO BID 03/13/18 Guaifenesin [Mucinex] 1,200 mg PO BID 03/31/18 Mupirocin Calcium [Bactroban Cream] 1 applic TOPICAL BID PRN 03/31/18 Nystatin Powder [Mycostatin Powder] 1 applic TOPICAL 4X/DAY PRN 03/31/18 Ondansetron [Zofran Odt] 4 mg PO Q8H PRN PRN #10 tab 07/07/18 Azithromycin 250 mg PO DAILY 07/29/18 Metformin HCl 1,000 mg PO QHS 07/29/18 Trilegy 1 puff INHALATION DAILY 07/29/18 busPIRone [Buspar] 15 mg PO BID 07/29/18 Methocarbamol 500 mg PO BID 09/12/18 Oxybutynin [Ditropan] 5 mg PO TID 09/12/18 levoFLOXacin tablet [Levaquin tablet] 500 mg PO DAILY 09/12/18 Potassium Chloride [K-Dur] 40 meq PO BID #60 tab 09/13/18 Following Prescrptions Were Given to Patient: Potassium Chloride [K-Dur] 40 meq PO BID #60 tab Transmission Status: Received by [facility] Primary Care Physician: Zabrina Bain MD [Primary Care Provider] - Please follow up with your Primary Care Physician in: 1 Week Please Follow Up With: Sree Forbes MD When: 1 Week Disposition: Home Minutes spent on discharge:: 35 Patient Condition:: Stable Medical Necessity - Tobacco Use Smoking Status: Former smoker Meaningful Use Info Meaningful Use Diagnoses (Choose all that apply): None applicable <Asael Chaparro - Last Filed: 09/13/18 13:41> Discharge Date and Diagnosis - Secondary Discharge Diagnosis Chronic Problems (Last Reviewed 09/12/18 @ 05:36 by Jarred Burns MD) Morbid obesity (Chronic) Chronic obstructive pulmonary disease (Chronic) IBS (irritable bowel syndrome) (Chronic) Degeneration of intervertebral disc of lumbosacral region (Chronic) Radiculopathy of lumbosacral region (Chronic) Spinal stenosis of lumbosacral region (Chronic) Primary osteoarthritis of right hip (Chronic) Spondylosis of lumbosacral region without myelopathy or radiculopathy (Chronic) correction use of drug (Chronic) Antihyperlipidemic Nonrheumatic aortic valve stenosis (Chronic) Nonrheumatic mitral valve insufficiency (Chronic) Heart failure (Chronic) Non Hodgkin's lymphoma (Chronic) Anxiety (Chronic) Depression (Chronic) Hypertension (Chronic) Hyperlipidemia (Chronic) Chronic respiratory failure (Chronic) copd 3 liters continuous Hypothyroidism (Chronic) GERD (gastroesophageal reflux disease) (Chronic) Diabetes mellitus, type II (Chronic) Benign essential HTN (Chronic) Sleep apnea (Chronic) Fatty liver disease, nonalcoholic (Chronic) Sjogren's syndrome (Chronic) Diverticulosis (Chronic) Mild aortic stenosis (Chronic) Super obesity (Chronic) bmi 48 Hospital Course and Treatment Summary of Care Provided: This patient was seen in conjunction with HEBERT Huddleston . I have independently interviewed and examined the patient and reviewed pertinent historical, laboratory, and other data. Please refer to HEBERT Huddleston note for details of this patient's presentation, findings, and recommendations. I have reviewed HEBERT Huddleston note and concur with documented findings. In brief, patient is a 73-year-old lady with multiple comorbidities admitted with nausea vomiting and diarrhea. Patient was also found to have significant electrolyte abnormalities (hypokalemia). Patient was placed on a monitored bed did rule out infectious etiology with a negative enteric pathogen as well as stool for C. difficile. Patient electrolyte abnormalities were also corrected. Patient symptoms did resolve with symptomatic management and discharged home a day after her admission Hospital course: As documented above by Kimmie Culp NP?C - Physical Exam Vital Signs Temp Pulse Resp BP Pulse Ox 97.1 F L 66 16 155/74 H 96 09/13/18 09:03 09/13/18 09:10 09/13/18 09:03 09/13/18 09:03 09/13/18 09:03 Oxygen Flow Rate (L/min) 3 Oxygen Delivery Method Nasal Cannula Weight: 106.7 kg Body Mass Index (BMI) 44.4 Finger Stick Blood Glucose 204 Intake and Output for Last 24 Hours 09/11/18 09/12/18 09/13/18 23:59 23:59 23:59 Intake Total 923 / 1278 415 / 415 Output Total 300 / 300 Balance 623 / 978 415 / 415 Microbiology Past 72 Hours 09/12/18 20:30 C. difficile DNA Amplification - Final Stool Laboratory Tests Past 24 Hrs 09/13/18 09/13/18 06:15 06:15 WBC 7.7 RBC 3.95 L Hgb 11.5 L Hct 36.5 L MCV 92.4 MCH 29.1 MCHC 31.5 L RDW 14.8 H RDW Differential 48.6 H Plt Count 215 MPV 10.0 Sodium 144 Potassium 3.1 L Chloride 100 Carbon Dioxide 37.0 H Anion Gap 7 BUN 10 Creatinine 0.61 Estim Creat Clear Calc 38.37 Est GFR (MDRD) Af Amer 124 Est GFR (MDRD) Non-Af 102 BUN/Creatinine Ratio 16.4 Glucose 197 H Calcium 8.6 POC Glucose 09/13/18 09/13/18 09/12/18 12:13 06:36 22:02 POC Glucose 228 H 182 H 206 H 09/12/18 16:40 POC Glucose 272 H Code Visit Inpatient E&M: 57104 Disch Hosp
--- NOTE | 2018-09-15 14:20 | CASEMGMT ---
RN CM Note: call received from [facility]. Referral from weekend discharge received and they will open case to see ptClaudette ESPITIAN RN ACM
== END 2018-09-13 16:32 | disposition home or self-care (01) | DRG 392 ==
LOC: ED 09-12 01:00 → PCU 09-12 03:45
PROVIDERS: Internal Medicine; Nurse Practitioner Family; Admitting Provider Hospitalist; Emergency Provider Emergency Medicine; Family Provider Internal Medicine; PCP Internal Medicine; Referring Provider Hospitalist; Visit Provider Internal Medicine
DX: A08.4 Viral intestinal infection, unspecified (principal); J96.11 Chronic respiratory failure with hypoxia; I50.32 Chronic diastolic (congestive) heart failure; Z68.41 Body mass index [BMI] 40.0-44.9, adult; E87.6 Hypokalemia; Z87.891 Personal history of nicotine dependence; J44.9 Chronic obstructive pulmonary disease, unspecified; G47.33 Obstructive sleep apnea (adult) (pediatric); N32.81 Overactive bladder; I11.0 Hypertensive heart disease with heart failure; E78.5 Hyperlipidemia, unspecified; F32.9 Major depressive disorder, single episode, unspecified; K21.9 Gastro-esophageal reflux disease without esophagitis; S30.810A Abrasion of lower back and pelvis, initial encounter; E11.9 Type 2 diabetes mellitus without complications; E66.01 Morbid (severe) obesity due to excess calories; I35.0 Nonrheumatic aortic (valve) stenosis; I34.0 Nonrheumatic mitral (valve) insufficiency; E03.9 Hypothyroidism, unspecified; Z79.4 Long term (current) use of insulin
CPT/HCPCS: 36591; 71046; 80048; 82962; 83735; 83880; 84484; 85025; 85027; 87493; 87506; 92526; 92610; 93005; 93971; 94640; 97162; 97166; 97530; 97535; 97802; 99284; J7030; A4216

== ENCOUNTER 2018-09-15 15:46 | Inpatient (IN) | payer MEDICARE, SELFPAY ==
[2018-09-12 04:45] VITALS: BMI 44.4
[2018-09-15 15:47] VITALS: BP 167/82; PULSE 80; RESP 17; TEMP 36.7; O2SAT 98; BMI 43.4
--- NOTE | 2018-09-15 16:07 | CT_ITS ---
STUDY: CT ABDOMEN AND PELVIS WITH CONTRAST REASON FOR EXAM: Female, 73 years old. Diarrhea RADIATION DOSAGE (If Supplied By Facility): DLP = ( 1128.28 ) mGycm TECHNIQUE: Transaxial images were obtained from the dome of the diaphragm to the symphysis pubis with oral contrast. 450ml ml of Gastrografin contrast was administered. Sagittal and coronal images were reconstructed. Individualized dose optimization techniques were used for this CT. COMPARISON: CT abdomen and pelvis July 07, 2018 FINDINGS: Right lung base nodules measuring up to 3 mm are present. Bibasilar atelectasis is present. The visualized portions of the heart and pericardium are within normal limits. There are no calcified gallstones present. The liver is nodular in appearance. There are no suspicious hepatic lesions. The spleen is normal in size. The pancreas is within normal limits. There is a left adrenal gland 2.2 cm adenoma. The right adrenal gland is normal. There are no obstructing renal stones. There is no hydronephrosis. There are no focal renal lesions. Normal visualized stomach. There is no bowel obstruction or inflammation. Colonic diverticulosis is present. The perianal region is incompletely included. The appendix is normal. The aorta is normal in caliber. There is no abdominal or pelvic free air, free fluid, fluid collection or lymphadenopathy. There are no destructive osseous lesions. Mild multilevel osteophytosis is present. Right anterior abdominal wall region of encapsulated of fat with scarring is stable in appearance. CT/Abdomen/Pel W ORAL Cont Only IMPRESSION: No acute abdominal or pelvic pathology. Right anterior abdominal wall region of encapsulated fat with scarring stable in appearance. Hepatic cirrhosis. Colonic diverticulosis. Left adrenal gland 2.2 cm adenoma. Electronically Signed: Rashi Pascual, at 19:53 EDT Tel , Service support ,
--- NOTE | 2018-09-15 16:07 | EKG12_ITS ---
Test Reason : GEN ILLNESS Blood Pressure : / mmHG Vent. Rate : 083 BPM Atrial Rate : 083 BPM P-R Int : 170 ms QRS Dur : 082 ms QT Int : 380 ms P-R-T Axes : 068 -07 061 degrees QTc Int : 446 ms Normal sinus rhythm Normal ECG Confirmed by SAMANTHA REGALADO, FERCHO ([id number]), offline editor TOM CHOE ([id number]) on 09/16/2018 1:43:51 PM Referred By: Feli Dean Confirmed By:FERCHO SINGH MD
--- NOTE | 2018-09-15 16:08 | ED.VIS.GEN ---
History of Present Illness Chief Complaint: General Illness Informant: Patient Onset: Yesterday Context: Gradual Onset Timing: Continuous Current Severity: Moderate Maximum Severity: Severe Narrative: Patient presents to the emergency department increasing shortness of breath. The patient was recently hospitalized with significant hypo kalemia and GI loss. Her Lasix was held. The patient does have a history of COPD and is on 2 L of oxygen at baseline. She states that she has had increasing dyspnea, orthopnea, weight gain, leg swelling since her discharge. She had increase her oxygen to 5 L. She does admit to some fevers and chills. States that her diarrhea has restarted. She denies recent antibiotics. She denies any chest pain. She denies history of pulmonary embolus. Prior similar symptoms: Yes Recent Illness/Hospitalization: Yes Past Medical History - Allergies and Home Meds Allergies/Adverse Reactions: Allergies adhesive Allergy (Verified 09/15/18 15:46) Itching adhesive tape Allergy (Verified 09/15/18 15:46) Rash amoxicillin trihydrate [From Augmentin] Allergy (Verified 09/15/18 15:46) Hives Iodinated Contrast- Oral and IV Dye Allergy (Verified 09/15/18 15:46) Shortness of breath latex Allergy (Verified 09/15/18 15:46) Rash Latex, Natural Rubber Allergy (Verified 09/15/18 15:46) Rash metronidazole [From Flagyl] Allergy (Verified 09/15/18 15:46) Hives Metronidazole HCl [From Flagyl] Allergy (Verified 09/15/18 15:46) Hives Penicillins [PCN] Allergy (Verified 09/15/18 15:46) Hives potassium clavulanate [From Augmentin] Allergy (Verified 09/15/18 15:46) Hives sulfamethoxazole [From Bactrim] Allergy (Verified 09/15/18 15:46) Hives hives trimethoprim [From Bactrim] Allergy (Verified 09/15/18 15:46) Hives hives diphenhydramine HCl [From Benadryl] Adverse Reaction (Verified 09/15/18 15:46) i could crawl to the ceiling i could crawl the ceiling omeprazole Adverse Reaction (Verified 09/15/18 15:46) Nausea promethazine HCl [From Phenergan] Adverse Reaction (Verified 09/15/18 15:46) Nausea antihistamine Allergy (Uncoded 09/15/18 15:46) i could crawl to the ceiling crawl the ceiling Prior records reviewed: Yes Surgical History: - - Right breast hematoma removal, Left breast lumps removal, Right chest port, R Wrist surery, T+A, hemorrhoidectomy. Lives: Alone Smoking Status: Former smoker Alcohol: None Drugs: None - Family History Offspring Family History: Family History (Last Reviewed 09/12/18 @ 05:36 by Jarred Burns MD) Brother CAD (coronary artery disease) CVA (cerebral vascular accident) Brother Sudden cardiac Brother CAD (coronary artery disease) Mother Heart disease Father Brain aneurysm Family History: Reports: Cancer, Diabetes, Hypertension Maternal Family History: Family History (Last Reviewed 09/12/18 @ 05:36 by Jarred Burns MD) Brother CAD (coronary artery disease) CVA (cerebral vascular accident) Brother Sudden cardiac Brother CAD (coronary artery disease) Mother Heart disease Father Brain aneurysm Family History: Reports: - Sibling Family History: Family History (Last Reviewed 09/12/18 @ 05:36 by Jarred Burns MD) Brother CAD (coronary artery disease) CVA (cerebral vascular accident) Brother Sudden cardiac Brother CAD (coronary artery disease) Mother Heart disease Father Brain aneurysm Family History: Reports: - Review of Systems General: Reports: Chills Eyes: Denies: Visual changes - bilaterally, Diplopia ENT: Denies: Rhinorrhea, Sore throat Cardiovascular: Denies: Chest pain, Palpitations Respiratory: Reports: Dyspnea, Cough, Dyspnea on exertion, Orthopnea Gastrointestinal: Reports: Abdominal pain, Diarrhea Genitourinary: Denies: Dysuria, Hematuria, Frequency Musculoskeletal: Reports: Arthralgias, Swelling Skin: Denies: Rash, Wounds Neurological: Denies: Headache, Weakness, Numbness Psych: Denies: Depression Endocrine: Denies: Polyuria Hematologic: Denies: Easy bruising Physical Exam Vital Signs/Narrative: Vital Signs Temp Pulse Resp BP Pulse Ox 09/15/18 15:47 98.1 F 80 17 167/82 H 98 Inital Vital Signs reviewed: Yes General: Well nourished, Well developed, No Acute Distress Head: Normocephalic, Atraumatic Eyes: Perrl, EOMI ENT: Moist mucous membranes, No rhinorrhea Neck: Supple, Nontender Cardiovascular: Regular rate, Regular rhythm, No murmurs Respiratory: No distress, Chest nontender, Diminished, Decreased Air Movement Abdomen: Soft, Nondistended, Normal bowel sounds, Tender. Negative for: Nontender, Ventral hernia, Inguinal hernia Back: Nontender, Normal Inspection Extremities: Nontender, Edema. Negative for: No edema Skin: Normal color, No rash Neurological: Alert, Oriented x3, Cranial nerves II-XII grossly intact, Normal Strength, Normal Sensation Psychological: Normal affect, Normal Mood Diagnostic/Tx/Re-eval Chest X-Ray - ED: 2 View, Cardiomegaly, CHF Clinical Impression(s) from Imaging Studies Abdomen CT 09/15/18 16:07 IMPRESSION: No acute abdominal or pelvic pathology. Right anterior abdominal wall region of encapsulated fat with scarring stable in appearance. Hepatic cirrhosis. Colonic diverticulosis. Left adrenal gland 2.2 cm adenoma. Electronically Signed: Rashi Pascual, at 19:53 EDT Tel , Service support , Chest X-Ray 09/15/18 18:45 IMPRESSION: Congestion with features described above. Electronically Signed: Rashi Pascual, at 19:26 EDT Tel , Service support , Abnormal Lab Results 09/15/18 09/15/18 09/15/18 16:35 18:05 18:05 WBC 10.4 RBC 4.28 Hgb 12.5 Hct 39.6 MCV 92.5 MCH 29.2 MCHC 31.6 L RDW 14.6 RDW Differential 48.8 H Plt Count 218 MPV 10.1 Immature Gran % (Auto) 0.600 Neut % (Auto) 81.8 H Lymph % (Auto) 9.9 L [place] % (Auto) 6.4 Eos % (Auto) 1.2 Baso % (Auto) 0.1 Absolute Neuts (auto) 8.5 H Absolute Lymphs (auto) 1.03 Total Counted Not Reportable Sodium 143 Potassium 3.8 Chloride 101 Carbon Dioxide 34.0 H Anion Gap 8 BUN 9 Creatinine 0.83 Estim Creat Clear Calc 46.23 Est GFR (MDRD) Af Amer 87 Est GFR (MDRD) Non-Af 72 BUN/Creatinine Ratio 10.9 Glucose 187 H Calcium 8.7 Total Bilirubin 0.80 AST 28 ALT 41 Alkaline Phosphatase 137 H Troponin I < 0.015 B-Natriuretic Peptide Total Protein 7.3 Albumin 3.4 Globulin 3.9 Albumin/Globulin Ratio 0.9 Urine Color Yellow Urine Clarity Clear Urine pH 6.5 Ur Specific [place] 1.005 Urine Protein 15 H Urine Glucose (UA) Normal Urine Ketones Negative Urine Occult Blood 10 H Urine Nitrite Negative Urine Bilirubin Negative Urine Urobilinogen Normal Ur Leukocyte Esterase 100 H Urine RBC 0 SEEN Urine WBC 0-5 SEEN Ur Squamous Epith Cells 5-10 SEEN Ur Transition Epith Cell 0-5 SEEN Urine Bacteria 0 SEEN Urine Mucus 0 SEEN 09/15/18 18:05 WBC RBC Hgb Hct MCV MCH MCHC RDW RDW Differential Plt Count MPV Immature Gran % (Auto) Neut % (Auto) Lymph % (Auto) [place] % (Auto) Eos % (Auto) Baso % (Auto) Absolute Neuts (auto) Absolute Lymphs (auto) Total Counted Sodium Potassium Chloride Carbon Dioxide Anion Gap BUN Creatinine Estim Creat Clear Calc Est GFR (MDRD) Af Amer Est GFR (MDRD) Non-Af BUN/Creatinine Ratio Glucose Calcium Total Bilirubin AST ALT Alkaline Phosphatase Troponin I B-Natriuretic Peptide 138.8 H Total Protein Albumin Globulin Albumin/Globulin Ratio Urine Color Urine Clarity Urine pH Ur Specific [place] Urine Protein Urine Glucose (UA) Urine Ketones Urine Occult Blood Urine Nitrite Urine Bilirubin Urine Urobilinogen Ur Leukocyte Esterase Urine RBC Urine WBC Ur Squamous Epith Cells Ur Transition Epith Cell Urine Bacteria Urine Mucus - EKG Initial EKG Interpretation: Sinus Rhythm, No Acute Injury Pattern Prior: Unchanged - Medical Decision Making The patient presents to the emergency department with worsening shortness of breath, orthopnea, dyspnea. When she was in the hospital, she was volume resuscitated and her Lasix were held. Now I am concerned that she is in acute heart failure. She has had increase her oxygen. She is normally on 2 L, but has been up to 5. Chest x-ray does show evidence of volume overload. Screening labs were unremarkable. I did obtain a CT of abdomen pelvis given her diarrhea which was unremarkable. Cardiac enzymes are normal. Patient was given IV Lasix. We did attempt to ambulate the patient, but she got more dyspneic and tachypneic. At this point, given that she is going to benefit from admission for diuresis and monitoring of her respiratory status. ED Disposition - Plan for ED Patient: Disposition: Acute Care Hospital [facility] Diagnosis: Dyspnea
[2018-09-15 16:26] VITALS: O2SAT 97
[2018-09-15 16:42] LABS: Bacteria 0 SEEN /hpf (None Seen); Mucous, Urine 0 SEEN /hpf (<or=2+); Red Blood Cells-Urine 0 SEEN /hpf (0-5)
[2018-09-15 17:07] LABS: Color, Urine Yellow (Yellow); Glucose, Dipstick Normal (Normal); Ketone-Dipstick Negative (Negative); Leukocyte Esterase-Dipstick 100 /ul (Negative); Nitrite-Dipstick Negative (Negative); Occult Blood-Urine 10 /ul (Negative); Protein-Dipstick 15 mg/dl (Negative); Specific Gravity, Urine 1.005 (1.002-1.030); Urine Bilirubin Dipstick Negative (Negative); Urine Clarity Clear (Clear); Urine Urobilinogen Normal (Normal); Urine pH 6.5 (5.0 - 8.0)
[2018-09-15 17:19] LABS: Squamous Epithelial Cells - UA 5-10 SEEN /hpf (5-10); White Blood Cells 0-5 SEEN /hpf (0-5)
[2018-09-15 17:20] LABS: Transitional Epithelial - Ur 0-5 SEEN /hpf (0-5)
--- NOTE | 2018-09-15 17:51 | ED.RN ---
CONTINUING TO WAIT FOR PORT KIT TO ACCESS.
[2018-09-15 18:11] VITALS: PULSE 85; RESP 18; O2SAT 95
[2018-09-15] MEDS: Ondansetron 4 MG/2 ML Vial IV (18:16)
[2018-09-15 18:19] LABS: Absolute Lymphocyte Count 1.03 X10^3/ul (0.83-4.51); Absolute Neutrophil Count 8.5 X10^3/uL (2.0-7.7); Basophil# 0.01 X10^3/uL; Basophil% 0.1 % (0-1); Eosinophil# 0.12 X10^3/uL; Eosinophils% 1.2 % (0-5); Hematocrit 39.6 % (37-47); Hemoglobin 12.5 g/dl (12.0-15.0); Lymphocyte # 1.03 X10^3/ul (4.0); Lymphocyte % 9.9 % (19-41); Mean Corp Hgb Conc 31.6 g/gl (32-36); Mean Corpuscular Hgb 29.2 pg (27.0-32.0); Mean Corpuscular Volume 92.5 fL (81-99); Mean Platelet Vol. 10.1 fl (6.2-12.0); Monocyte# 0.66 X10^3/uL; Monocyte% 6.4 % (0-10); Neutrophil # 8.48 X10^3/uL (2.7-7.7); Neutrophil % 81.8 % (47-70); Platelet Count 218 K/mm3 (150-450); RBC Distribution Width CV 14.6 % (11.6-14.6); RBC Distribution Width SD 48.8 fl (35.1-43.9); Red Blood Count 4.28 M/mm3 (4.2-5.4); White Blood Count 10.4 K/mm3 (4.4-11.0)
[2018-09-15 18:20] LABS: POSITIVE COUNT NO; POSITIVE DIFFERENTIAL NO; POSITIVE MORPHOLOGY NO
--- NOTE | 2018-09-15 18:45 | RAD_ITS ---
STUDY: X-RAY CHEST REASON FOR EXAM: Female, 73 years old. Chest pain TECHNIQUE: PA and lateral views of the chest COMPARISON: X-Ray Chest September 12, 2018 FINDINGS: Left chest tunneled catheter is present with the tip at the SVC. Pulmonary vascular prominence is present with mild edema. There are no pleural effusions. There is no pneumothorax. The heart is enlarged. The visualized osseous structures are within normal limits. RAD/Chest PA and Lateral IMPRESSION: Congestion with features described above. Electronically Signed: Rashi Pascual, at 19:26 EDT Tel , Service support ,
[2018-09-15 18:50] LABS: ALB/GLOB Ratio 0.9 RATIO (0.9-2.4); AST(SGOT) 28 U/L (15-37); Alanine Aminotransfer ALT/SGPT 41 U/L (13-56); Albumin, Serum 3.4 g/dL (3.2-5.0); Alkaline Phosphatase 137 U/L (45-117); Anion Gap 8 (5-15); BUN 9 mg/dL (7-18); BUN/Creat Ratio 10.9 RATIO (10-20); Calcium,Total 8.7 mg/dL (8.5-10.1); Chloride 101 mmol/L (98-107); Creatinine, Serum 0.83 mg/dL (0.55-1.02); EST Glomerular Filtration Rate 72 mL/min (>60); Est Glom Filt Rate - Afr Amer 87 mL/min (>60); Estimated Creatinine Clearance 46.23 ml/min; Globulin 3.9 g/dL (2.2-4.2); Glucose 187 mg/dL (74-106); Potassium 3.8 mmol/L (3.5-5.1); Protein, Total 7.3 g/dL (6.4-8.2); Sodium Level 143 mmol/L (136-145)
[2018-09-15 19:12] LABS: BNP,B-Type NATRIURETIC PEPTIDE 138.8 pg/mL (0-100)
[2018-09-15] MEDS: Furosemide 40 MG/4 ML Vial IV (20:19)
--- NOTE | 2018-09-15 21:37 | HP.PCM_ITS ---
Problem List (1) Right-sided heart failure Status: Acute (2) Pulmonary HTN Status: Chronic (3) Dyspnea Status: Acute (4) Morbid obesity Status: Chronic (5) Gastroenteritis Status: Resolved (6) Chronic obstructive pulmonary disease Status: Chronic Qualifiers: Emphysema type: unspecified (7) IBS (irritable bowel syndrome) Status: Chronic Qualifiers: Irritable bowel syndrome type: with diarrhea Qualified Code(s): K58.0 - Irritable bowel syndrome with diarrhea (8) Degeneration of intervertebral disc of lumbosacral region Status: Chronic (9) Radiculopathy of lumbosacral region Status: Chronic (10) Spinal stenosis of lumbosacral region Status: Chronic (11) Primary osteoarthritis of right hip Status: Chronic (12) Spondylosis of lumbosacral region without myelopathy or radiculopathy Status: Chronic (13) Hypokalemia Status: Resolved (14) Diarrhea Status: Resolved (15) H/O hemorrhoidectomy Status: Resolved (16) History of tonsillectomy Status: Resolved (17) S/P wrist surgery Status: Resolved Comment: right (18) Nonrheumatic aortic valve stenosis Status: Chronic (19) Nonrheumatic mitral valve insufficiency Status: Chronic (20) Heart failure Status: Chronic Qualifiers: Heart failure type: diastolic Heart failure chronicity: chronic Qualified Code(s): I50.32 - Chronic diastolic (congestive) heart failure (21) Non Hodgkin's lymphoma Status: Chronic Qualifiers: Non-Hodgkin lymphoma type: unspecified type Lymphoma site: unspecified region Qualified Code(s): C85.90 - Non-Hodgkin lymphoma, unspecified, unspecified site (22) Anxiety Status: Chronic (23) Depression Status: Chronic Qualifiers: Depression Type: unspecified Qualified Code(s): F32.9 - Major depressive disorder, single episode, unspecified (24) Hypertension Status: Chronic Qualifiers: Hypertension type: essential hypertension Qualified Code(s): I10 - Essential (primary) hypertension (25) Hyperlipidemia Status: Chronic Qualifiers: Hyperlipidemia type: pure hypercholesterolemia Qualified Code(s): E78.00 - Pure hypercholesterolemia, unspecified; E78.0 - Pure hypercholesterolemia (26) Chronic respiratory failure Status: Chronic Qualifiers: Respiratory failure complication: hypoxia Qualified Code(s): J96.11 - Chronic respiratory failure with hypoxia Comment: copd 3 liters continuous (27) Hypothyroidism Status: Chronic Qualifiers: Hypothyroidism type: unspecified Qualified Code(s): E03.9 - Hypothyroidism, unspecified (28) GERD (gastroesophageal reflux disease) Status: Chronic Qualifiers: Esophagitis presence: esophagitis presence not specified Qualified Code(s): K21.9 - Gastro-esophageal reflux disease without esophagitis (29) Diabetes mellitus, type II Status: Chronic Qualifiers: Diabetes mellitus custodial insulin use: with terminal block assembler use Diabetes mellitus complication status: with unspecified complications (30) Benign essential HTN Status: Chronic (31) Sleep apnea Status: Chronic Qualifiers: Sleep apnea type: unspecified type Qualified Code(s): G47.30 - Sleep apnea, unspecified (32) Fatty liver disease, nonalcoholic Status: Chronic (33) Sjogren's syndrome Status: Chronic Qualifiers: Sjogren's organ involvement: unspecified organ involvement Qualified Code(s): M35.00 - Sicca syndrome, unspecified (34) Diverticulosis Status: Chronic (35) Mild aortic stenosis Status: Chronic (36) Chest pain Status: Resolved History of Present Illness Date of Admission: 09/15/18 Chief Complaint: SOB, leg swelling The patient is a 73 year old F morbid obesity, COPD, IBS, non-Hodgkin's lymphoma, anxiety/depression, hypertension, hyperlipidemia, chronic respiratory failure with hypoxemia on 3 L of nasal O2 chronically, hypothyroidism, GERD, diabetes mellitus type 2, obstructive sleep apnea, fatty infiltration of the liver, diverticulosis and mild aortic stenosis who presented to the ED at [facility] on 09/15/18 complaining of increasing shortness of breath and leg swelling. She was recently admitted to the hospital on 09/12/2018 for diarrhea and hypokalemia and was discharged on 09/13/2018. She denies fevers and shaking chills. No significant cough. She has no air conditioning at home and has been very uncomfortable with increased SOB. No CP. Tells me that she sleeps in bed on 1 pillow and she does not awaken SOB. Denies orthopnea. Vital signs at presentation to the emergency room are temperature 98.1, pulse rate 80, blood pressure 167/82, respiratory rate 17 and she was 98% saturated on room air when she arrived to the emergency room? Pulse ox on 6 L was 97%. She chronically wears 3 L of oxygen at home. White blood cell count is unremarkable at 10.4 and the neutrophils are 82%. Hemoglobin is normal at 12.5 and platelets are also within normal limits. There are normochromic normocytic indices with a normal RDW. Potassium is 3.8 and the serum bicarb is 34. BUN is 9 and creatinine is 0.83. Random blood sugar is 187. Troponin is less than 0.015. BNP is 138. UA had 0-5 WBCs with 5-10 squamous epithelial cells. Chest x-ray shows no infiltrates or pleural effusions. there is increased cephalization but, I suspect this is secondary to pulmonary HTN.....RV sys Pressure in 2014 was 51 and I suspect it is higher now. She is being admitted to the hospital with a dx of Pulmonary HTN and isolated R heart failure. She tells me that she had an ECHO earlier today at the [facility] and we will obtain a copy of the report. She is being admitted to the progressive care unit and will receive intravenous Lasix and potassium supplementation. We will consult Dr. Mayfield in the a.m. Will obtain Dr. Abraham's records. Past Medical History Past Medical History (Chronic Problems): Chronic Problems (Last Reviewed 09/16/18 @ 00:28 by Feli Dean DO) Pulmonary HTN (Chronic) Morbid obesity (Chronic) Chronic obstructive pulmonary disease (Chronic) IBS (irritable bowel syndrome) (Chronic) Degeneration of intervertebral disc of lumbosacral region (Chronic) Radiculopathy of lumbosacral region (Chronic) Spinal stenosis of lumbosacral region (Chronic) Primary osteoarthritis of right hip (Chronic) Spondylosis of lumbosacral region without myelopathy or radiculopathy (Chronic) Nonrheumatic aortic valve stenosis (Chronic) Nonrheumatic mitral valve insufficiency (Chronic) Heart failure (Chronic) Non Hodgkin's lymphoma (Chronic) Anxiety (Chronic) Depression (Chronic) Hypertension (Chronic) Hyperlipidemia (Chronic) Chronic respiratory failure (Chronic) copd 3 liters continuous Hypothyroidism (Chronic) GERD (gastroesophageal reflux disease) (Chronic) Diabetes mellitus, type II (Chronic) Benign essential HTN (Chronic) Sleep apnea (Chronic) Fatty liver disease, nonalcoholic (Chronic) Sjogren's syndrome (Chronic) Diverticulosis (Chronic) Mild aortic stenosis (Chronic) Medical History: Medical History (Last Reviewed 09/16/18 @ 00:31 by Feli Dean DO) Nonrheumatic aortic valve stenosis (Chronic) I35.0 Nonrheumatic mitral valve insufficiency (Chronic) I34.0 Heart failure (Chronic) I50.9 Hypertension (Chronic) I10 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 Breast pain, left N64.4 CHF (congestive heart failure) I50.9 Chronic obstructive pulmonary disease J44.9 Dyspnea on exertion R06.09 Neck pain M54.2 SCOTTY (obstructive sleep apnea) G47.33 Pseudomonas aeruginosa infection A49.8 Allergies adhesive Allergy (Verified 09/15/18 15:46) Itching adhesive tape Allergy (Verified 09/15/18 15:46) Rash amoxicillin trihydrate [From Augmentin] Allergy (Verified 09/15/18 15:46) Hives Iodinated Contrast- Oral and IV Dye Allergy (Verified 09/15/18 15:46) Shortness of breath latex Allergy (Verified 09/15/18 15:46) Rash Latex, Natural Rubber Allergy (Verified 09/15/18 15:46) Rash metronidazole [From Flagyl] Allergy (Verified 09/15/18 15:46) Hives Metronidazole HCl [From Flagyl] Allergy (Verified 09/15/18 15:46) Hives Penicillins [PCN] Allergy (Verified 09/15/18 15:46) Hives potassium clavulanate [From Augmentin] Allergy (Verified 09/15/18 15:46) Hives sulfamethoxazole [From Bactrim] Allergy (Verified 09/15/18 15:46) Hives hives trimethoprim [From Bactrim] Allergy (Verified 09/15/18 15:46) Hives hives diphenhydramine HCl [From Benadryl] Adverse Reaction (Verified 09/15/18 15:46) i could crawl to the ceiling i could crawl the ceiling omeprazole Adverse Reaction (Verified 09/15/18 15:46) Nausea promethazine HCl [From Phenergan] Adverse Reaction (Verified 09/15/18 15:46) Nausea antihistamine Allergy (Uncoded 09/15/18 15:46) i could crawl to the ceiling crawl the ceiling Home Medications: Ambulatory Orders Medication Instructions Recorded Albuterol Inhaler [Ventolin Hfa] 2 puff INHALATION Q6H PRN PRN 06/29/14 Levothyroxine [Synthroid] 25 mcg PO DAILY 06/29/14 Montelukast [Singulair] 10 mg PO QHS 06/29/14 Pantoprazole Sodium [Protonix] 40 mg PO BID 06/29/14 Sertraline HCl [Zoloft] 200 mg PO QHS 06/29/14 Albuterol Aerosols [Ventolin 2.5 mg INHALATION Q4H PRN PRN 08/20/14 Aerosols] Insulin Detemir [Levemir FlexPen] 15 units SUBCUT BID 01/26/15 Atorvastatin Calcium [Lipitor] 40 mg PO DAILY 09/18/15 Fluticasone 0.05% [Flonase Nasal 2 spray NASAL QHS 09/18/15 [place]] Liraglutide [Victoza 2-Yan] 1.8 mg SQ DAILY 09/18/15 Pregabalin [Lyrica] 50 mg PO TID 09/18/15 traZODone [Desyrel] 150 mg PO QHS 11/26/16 Loperamide [Imodium] 2 mg PO BID PRN PRN 12/03/16 Acetaminophen [Tylenol] 1,000 mg PO BID 10/11/17 Lisinopril [Zestril] 40 mg PO DAILY 10/11/17 Multivitamin [Multiple Vitamins] 1 tab PO DAILY 10/11/17 Insulin Lispro [Humalog KwikPen] 8 unit SQ BREAKFAST 11/18/17 Insulin Lispro [Humalog KwikPen] 8 units SQ LUNCH 11/18/17 Insulin Lispro [Humalog KwikPen] 12 unit SQ DINNER 11/18/17 Magnesium Oxide [Magnesium] 400 mg PO DAILY 11/18/17 Spironolactone [Aldactone] 25 mg PO BID 03/13/18 Nystatin Powder [Mycostatin Powder] 1 applic TOPICAL 4X/DAY PRN 03/31/18 Ondansetron [Zofran Odt] 4 mg PO Q8H PRN PRN #10 tab 07/07/18 Azithromycin 250 mg PO DAILY 07/29/18 Metformin HCl 1,000 mg PO QHS 07/29/18 busPIRone [Buspar] 15 mg PO BID 07/29/18 Methocarbamol 500 mg PO BID PRN PRN 09/12/18 Oxybutynin [Ditropan] 5 mg PO TID 09/12/18 Potassium Chloride [K-Dur] 40 meq PO BID #60 tab 09/13/18 Fluticasone/Umeclidin/Vilanter 1 puff INHALATION DAILY 09/15/18 [Treleherber Ellipta 100-62.5-25] Furosemide 80 mg PO BID 09/15/18 Guaifenesin [Mucinex] 600 mg PO BID 09/15/18 Metoprolol Succinate 50 mg PO BID 09/15/18 Surgical History: Surgical History (Last Reviewed 09/16/18 @ 00:31 by Feli Dean DO) H/O hemorrhoidectomy (Resolved) Z98.890 History of tonsillectomy (Resolved) Z90.89 S/P wrist surgery (Resolved) Z98.890 right Surgical History: - - Right breast hematoma removal, Left breast lumps removal, Right chest port, R Wrist surery, T+A, hemorrhoidectomy. 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 history Lives: Alone Smoking Status: Former smoker Alcohol: None Drugs: None - *Family History Offspring Family History: Family History (Last Reviewed 09/16/18 @ 00:31 by Feli Dean DO) Brother CAD (coronary artery disease) CVA (cerebral vascular accident) Brother Sudden cardiac Brother CAD (coronary artery disease) Mother Heart disease Father Brain aneurysm History Items: Cancer, Diabetes, Hypertension Maternal Family History: Family History (Last Reviewed 09/16/18 @ 00:31 by Feli Dean DO) Brother CAD (coronary artery disease) CVA (cerebral vascular accident) Brother Sudden cardiac Brother CAD (coronary artery disease) Mother Heart disease Father Brain aneurysm History Items: - Sibling Family History: Family History (Last Reviewed 09/16/18 @ 00:31 by Feli Dean DO) Brother CAD (coronary artery disease) CVA (cerebral vascular accident) Brother Sudden cardiac Brother CAD (coronary artery disease) Mother Heart disease Father Brain aneurysm History Items: - Review of Systems Constitutional: Denies: Chills, Fever, Weight Change HEENT: Denies: Head Aches, Sinus Congestion, Sinus Drainage Cardiovascular: Denies: Chest Pain, Palpitations Respiratory: Reports: Shortness of breath upon exertion. Denies: Cough, Shortness of breath at rest, Sputum production Gastrointestinal: Denies: Abdominal Pain, Diarrhea, Nausea, Vomiting Genitourinary: Denies: Dysuria Musculoskeletal: Denies: Joint Pain, Joint Tenderness Skin: Denies: Rash, Wounds Neurological: Denies: Numbness, Tingling, Focal weakness Psychiatric: Denies: Anxiety, Depression, Homicidal Ideations, Suicidal Id eations Hematologic/ Lymphatic: Denies: Easy Bruising, Easy Bleeding VTE Information - Inpt Only VTE Present on Admission: No VTE Mechan Device Prophylaxis: SCD's, Knee High HIWOT Hose VTE Pharm Prophylaxis ordered?: Yes Patient Problems: Active and Suspected Problems (Last Reviewed 09/16/18 @ 00:28 by Feli Dean DO) Dyspnea (Acute) Right-sided heart failure (Acute) - Physical Exam General: Alert, Oriented x3, Cooperative, - - morbidly obese, mild conversational dyspnea at rest HEENT: Atraumatic, PERRLA, EOMI, Normocephalic Oral: Moist Mucosa Neck: Supple, Negative Carotid Bruits, Trachea Midline, - - Cannot assess for JVD, she is sitting upright in a chair Lungs: Clear to auscultation, No rhonchi, No wheeze, No rales, Diminished Cardiovascular: Regular rate, Regular Rhythm, Normal S1, Normal S2, No murmurs, No rub noted, No Gallop Abdomen: Bowel Sounds Present, Soft, Non Tender, Distended - and hypertympanic in the upper abdomen, large pannus, Obese Extremities: No clubbing, No cyanosis, Edema, - - evidence of venous HTN Skin: No rashes, No breakdown Musculoskeletal: Arthritic Changes Neurological: Cranial nerves II-XII grossly intact, Neuro grossly intact Psych/Mental Status: Appropriate Vital Signs Temp Pulse Resp BP Pulse Ox 98.1 F 85 18 167/82 H 95 09/15/18 15:47 09/15/18 18:11 09/15/18 18:11 09/15/18 15:47 09/15/18 18:11 Oxygen Flow Rate (L/min) 4 Oxygen Delivery Method Nasal Cannula Weight: 230 lb Body Mass Index (BMI) 43.4 Finger Stick Blood Glucose 204 Intake and Output for Last 24 Hours 09/13/18 09/14/18 09/15/18 23:59 23:59 23:59 Output Total 400 / 400 Balance -400 / -400 Laboratory Tests Past 24 Hrs 09/15/18 09/15/18 09/15/18 16:35 18:05 18:05 WBC 10.4 RBC 4.28 Hgb 12.5 Hct 39.6 MCV 92.5 MCH 29.2 MCHC 31.6 L RDW 14.6 RDW Differential 48.8 H Plt Count 218 MPV 10.1 Immature Gran % (Auto) 0.600 Neut % (Auto) 81.8 H Lymph % (Auto) 9.9 L [place] % (Auto) 6.4 Eos % (Auto) 1.2 Baso % (Auto) 0.1 Absolute Neuts (auto) 8.5 H Absolute Lymphs (auto) 1.03 Total Counted Not Reportable Sodium 143 Potassium 3.8 Chloride 101 Carbon Dioxide 34.0 H Anion Gap 8 BUN 9 Creatinine 0.83 Estim Creat Clear Calc 46.23 Est GFR (MDRD) Af Amer 87 Est GFR (MDRD) Non-Af 72 BUN/Creatinine Ratio 10.9 Glucose 187 H Calcium 8.7 Total Bilirubin 0.80 AST 28 ALT 41 Alkaline Phosphatase 137 H Troponin I < 0.015 B-Natriuretic Peptide Total Protein 7.3 Albumin 3.4 Globulin 3.9 Albumin/Globulin Ratio 0.9 Urine Color Yellow Urine Clarity Clear Urine pH 6.5 Ur Specific [place] 1.005 Urine Protein 15 H Urine Glucose (UA) Normal Urine Ketones Negative Urine Occult Blood 10 H Urine Nitrite Negative Urine Bilirubin Negative Urine Urobilinogen Normal Ur Leukocyte Esterase 100 H Urine RBC 0 SEEN Urine WBC 0-5 SEEN Ur Squamous Epith Cells 5-10 SEEN Ur Transition Epith Cell 0-5 SEEN Urine Bacteria 0 SEEN Urine Mucus 0 SEEN 09/15/18 18:05 WBC RBC Hgb Hct MCV MCH MCHC RDW RDW Differential Plt Count MPV Immature Gran % (Auto) Neut % (Auto) Lymph % (Auto) [place] % (Auto) Eos % (Auto) Baso % (Auto) Absolute Neuts (auto) Absolute Lymphs (auto) Total Counted Sodium Potassium Chloride Carbon Dioxide Anion Gap BUN Creatinine Estim Creat Clear Calc Est GFR (MDRD) Af Amer Est GFR (MDRD) Non-Af BUN/Creatinine Ratio Glucose Calcium Total Bilirubin AST ALT Alkaline Phosphatase Troponin I B-Natriuretic Peptide 138.8 H Total Protein Albumin Globulin Albumin/Globulin Ratio Urine Color Urine Clarity Urine pH Ur Specific [place] Urine Protein Urine Glucose (UA) Urine Ketones Urine Occult Blood Urine Nitrite Urine Bilirubin Urine Urobilinogen Ur Leukocyte Esterase Urine RBC Urine WBC Ur Squamous Epith Cells Ur Transition Epith Cell Urine Bacteria Urine Mucus Assessment/Plan All Active Problems (Last Reviewed 09/12/18 @ 05:36 by Jarred Burns MD) Dyspnea (Acute) Right-sided heart failure (Acute) Cervicalgia (Resolved) Chest pain (Resolved) Diarrhea (Resolved) Gastroenteritis (Resolved) H/O hemorrhoidectomy (Resolved) History of tonsillectomy (Resolved) Hyperglycemia (Resolved) Hypokalemia (Resolved) Recent urinary tract infection (Resolved) S/P wrist surgery (Resolved) Impressions 1. Dyspnea-multifactorial. Secondary to super obesity, pulmonary hypertension, COPD, deconditioning. No Left side failure....BNP is only 138 2. Acute on chronic cor pulmonale 3. Pulmonary hypertension 4. Super obesity 5. COPD 6. Chronic respiratory failure with hypoxemia on 3 L of nasal O2 at home chronically 7. Nonrheumatic aortic valve stenosis 8. Nonrheumatic mitral valve insufficiency 9. History of non-Hodgkin's lymphoma 10. Hypertension 11. Hyperlipidemia 12. Anxiety/depression 13. Hypothyroidism 14. SCOTTY Admit to a monitored bed on PCU Lasix 40 mg IV every 12 hours Recheck lab in the a.m. Consult Dr. Mayfield to participate in management. Has not had a recent sleep study or PFT's Obtain Dr. Abraham's records Obtain a copy of the ECHO report......states she had a ECHO at [facility] on 09/15 Code Visit Inpatient E&M: [id number] Init Hosp L2
[2018-09-15 22:00] LABS: Magnesium 2.2 mg/dL (1.6-2.6)
[2018-09-15 22:11] VITALS: PULSE 94
[2018-09-15 22:16] VITALS: BP 137/89; PULSE 95; RESP 20; TEMP 36.9; O2SAT 95
[2018-09-15 22:25] VITALS: BMI 44.9
--- NOTE | 2018-09-15 22:25 | NURSING ---
Unsure of last PNA shot.
[2018-09-15 22:30] VITALS: BMI 44.9
[2018-09-15] MEDS: Fluticasone 0.05% 1 SPRAY NASAL.SRY 2 SPRAY NASAL (23:19)
[2018-09-15] MEDS: Spironolactone 25 MG Tablet PO (23:21)
[2018-09-15] MEDS: traZODone 100 MG Tablet 150 MG PO (23:21)
[2018-09-15] MEDS: busPIRone 5 MG Tablet PO (23:21)
[2018-09-15 23:22] VITALS: BP 166/68; PULSE 97
[2018-09-15] MEDS: Pregabalin 50 MG Capsule PO (23:22)
[2018-09-15] MEDS: Metoprolol(XL)Succ 50 MG Tablet PO (23:22)
[2018-09-15] MEDS: Montelukast 10 MG Tablet PO (23:22)
[2018-09-15] MEDS: Pantoprazole Sodium 40 MG Tablet PO (23:22)
[2018-09-15] MEDS: guaiFENesin 600 MG Tablet PO (23:22)
[2018-09-15] MEDS: Sertraline 100 MG Tablet 200 MG PO (23:23)
[2018-09-15] MEDS: Acetaminophen 500 MG Tablet 1000 MG PO (23:23)
[2018-09-16] VITALS (15 sets, daily range): BP systolic 130–153; BP diastolic 66–75; PULSE 69–95; RESP 17–21; TEMP 36.7–37.1; O2SAT 94–96
[2018-09-16] MEDS: Albuterol 2.5 MG/3 ML VIAL.NEB. INHALATION (00:43)
[2018-09-16 00:46] LABS: Bedside Glucose 272 mg/dL (70-110)
[2018-09-16] MEDS: Furosemide 40 MG/4 ML Vial IV ×3 (06:06→21:26)
[2018-09-16] MEDS: 0.9% NaCl VAD Flush IV ×4 (06:06→21:25)
[2018-09-16] MEDS: Levothyroxine 25 MCG TABLET PO (06:06)
[2018-09-16] MEDS: Pregabalin 50 MG Capsule PO ×3 (06:06→21:23)
[2018-09-16 06:55] LABS: Bedside Glucose 219 mg/dL (70-110)
[2018-09-16 07:17] LABS: Absolute Lymphocyte Count 1.04 X10^3/ul (0.83-4.51); Absolute Neutrophil Count 6.6 X10^3/uL (2.0-7.7); Basophil# 0.02 X10^3/uL; Basophil% 0.2 % (0-1); Eosinophil# 0.15 X10^3/uL; Eosinophils% 1.8 % (0-5); Hematocrit 38.7 % (37-47); Lymphocyte # 1.04 X10^3/ul (4.0); Lymphocyte % 12.1 % (19-41); Mean Corpuscular Hgb 28.8 pg (27.0-32.0); Mean Corpuscular Volume 92.8 fL (81-99); Mean Platelet Vol. 10.1 fl (6.2-12.0); Monocyte# 0.68 X10^3/uL; Monocyte% 7.9 % (0-10); Neutrophil # 6.62 X10^3/uL (2.7-7.7); Neutrophil % 77.3 % (47-70); Platelet Count 206 K/mm3 (150-450); RBC Distribution Width CV 14.7 % (11.6-14.6); RBC Distribution Width SD 48.1 fl (35.1-43.9); Red Blood Count 4.17 M/mm3 (4.2-5.4); White Blood Count 8.6 K/mm3 (4.4-11.0)
[2018-09-16 07:21] LABS: POSITIVE COUNT NO; POSITIVE DIFFERENTIAL NO; POSITIVE MORPHOLOGY NO
[2018-09-16 07:39] LABS: ALB/GLOB Ratio 0.8 RATIO (0.9-2.4); AST(SGOT) 23 U/L (15-37); Alanine Aminotransfer ALT/SGPT 33 U/L (13-56); Albumin, Serum 3.1 g/dL (3.2-5.0); Alkaline Phosphatase 129 U/L (45-117); Anion Gap 4 (5-15); BUN 11 mg/dL (7-18); BUN/Creat Ratio 15.2 RATIO (10-20); Calcium,Total 8.7 mg/dL (8.5-10.1); Chloride 102 mmol/L (98-107); Cholesterol 149 mg/dL (200); Creatinine, Serum 0.72 mg/dL (0.55-1.02); EST Glomerular Filtration Rate 84 mL/min (>60); Est Glom Filt Rate - Afr Amer 102 mL/min (>60); Estimated Creatinine Clearance 38.37 ml/min; Globulin 3.7 g/dL (2.2-4.2); Glucose 237 mg/dL (74-106); High Density Lipoprotein 38 mg/dL; Magnesium 1.9 mg/dL (1.6-2.6); Phosphorus 3.5 mg/dL (2.5-4.9); Potassium 3.8 mmol/L (3.5-5.1); Protein, Total 6.8 g/dL (6.4-8.2); Sodium Level 141 mmol/L (136-145); Triglycerides 213 mg/dL; Very Low Density Lipoprotein 43 mg/dL (5-40)
[2018-09-16] MEDS: Insulin Lispro 100 UNIT/ML INSULN.PEN 8 UNIT SC ×2 (08:30→12:36)
[2018-09-16] MEDS: busPIRone 5 MG Tablet PO ×2 (08:35→21:23)
[2018-09-16] MEDS: Multivitamins,Therapeutic Tablet 1 TABLET PO (08:35)
[2018-09-16] MEDS: Magnesium Oxide 400 MG Tablet PO (08:35)
[2018-09-16] MEDS: Azithromycin 250 MG Tablet PO (09:56)
[2018-09-16] MEDS: Acetaminophen 500 MG Tablet 1000 MG PO ×2 (09:56→21:24)
[2018-09-16] MEDS: guaiFENesin 600 MG Tablet PO ×2 (09:57→21:23)
[2018-09-16] MEDS: Pantoprazole Sodium 40 MG Tablet PO ×2 (09:57→21:23)
[2018-09-16] MEDS: Lisinopril 40 MG Tablet PO (09:57)
[2018-09-16] MEDS: Metoprolol(XL)Succ 50 MG Tablet PO ×2 (09:57→21:23)
[2018-09-16] MEDS: Enoxaparin 40 MG/0.4 ML Syringe SC (09:57)
[2018-09-16] MEDS: Spironolactone 25 MG Tablet PO ×2 (10:01→21:24)
[2018-09-16] MEDS: Glucerna Shake 120 ML LIQUID 60 ML PO (10:04)
--- NOTE | 2018-09-16 10:37 | CASEMGMT ---
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 SW called [facility] and notified them of patient's admission. Tracy CADET MSW
--- NOTE | 2018-09-16 10:44 | CASEMGMT ---
Addendum entered by Libby Boyer 09/16/18 10:50: [facility] contact info: [phone] [phone] Original Note: [facility] [place] Readmission assessment: See assessment completed by Quinn FERRARO CM on 09/12/18. Pt was admitted for Gastroenteritis, hypokalemia and discharged on 09/13/18 with [facility] for RN, PT/OT, aide but they were set to do start of care today 09/16/18. New order placed for HHC at this time as they will need a new order at discharge. Pt readmitted last pm for right HF, pulm htn. CM to follow for any further discharge planning/needs. [facility] is aware of pt admission and will be notified when pt to be discharged with new order/d/c paperwork to be faxed. Alem FERRARO CM
[2018-09-16 12:15] LABS: Bedside Glucose 240 mg/dL (70-110)
--- NOTE | 2018-09-16 13:02 | PCM.CONS.PUL ---
Problem List (1) Right-sided heart failure Status: Acute Qualifiers: Heart failure chronicity: acute on chronic Qualified Code(s): I50.813 - Acute on chronic right heart failure (2) Pulmonary HTN Status: Chronic (3) Morbid obesity Status: Chronic (4) Chronic obstructive pulmonary disease Status: Chronic Qualifiers: Emphysema type: unspecified (5) IBS (irritable bowel syndrome) Status: Chronic Qualifiers: Irritable bowel syndrome type: with diarrhea Qualified Code(s): K58.0 - Irritable bowel syndrome with diarrhea (6) Degeneration of intervertebral disc of lumbosacral region Status: Chronic (7) Radiculopathy of lumbosacral region Status: Chronic (8) Primary osteoarthritis of right hip Status: Chronic (9) Spondylosis of lumbosacral region without myelopathy or radiculopathy Status: Chronic (10) Nonrheumatic aortic valve stenosis Status: Chronic (11) Nonrheumatic mitral valve insufficiency Status: Chronic (12) Non Hodgkin's lymphoma Status: Chronic Qualifiers: Non-Hodgkin lymphoma type: unspecified type Lymphoma site: unspecified region Qualified Code(s): C85.90 - Non-Hodgkin lymphoma, unspecified, unspecified site (13) Anxiety Status: Chronic (14) Depression Status: Chronic Qualifiers: Depression Type: unspecified Qualified Code(s): F32.9 - Major depressive disorder, single episode, unspecified (15) Hypertension Status: Chronic Qualifiers: Hypertension type: essential hypertension Qualified Code(s): I10 - Essential (primary) hypertension (16) Hyperlipidemia Status: Chronic Qualifiers: Hyperlipidemia type: pure hypercholesterolemia Qualified Code(s): E78.00 - Pure hypercholesterolemia, unspecified; E78.0 - Pure hypercholesterolemia (17) Chronic respiratory failure Status: Chronic Qualifiers: Respiratory failure complication: hypoxia Qualified Code(s): J96.11 - Chronic respiratory failure with hypoxia Comment: copd 3 liters continuous (18) Hypothyroidism Status: Chronic Qualifiers: Hypothyroidism type: unspecified Qualified Code(s): E03.9 - Hypothyroidism, unspecified (19) GERD (gastroesophageal reflux disease) Status: Chronic Qualifiers: Esophagitis presence: esophagitis presence not specified Qualified Code(s): K21.9 - Gastro-esophageal reflux disease without esophagitis (20) Diabetes mellitus, type II Status: Chronic Qualifiers: Diabetes mellitus penitentiary insulin use: with penitentiary use Diabetes mellitus complication status: with unspecified complications (21) Benign essential HTN Status: Chronic (22) Sleep apnea Status: Chronic Qualifiers: Sleep apnea type: unspecified type Qualified Code(s): G47.30 - Sleep apnea, unspecified (23) Fatty liver disease, nonalcoholic Status: Chronic (24) Sjogren's syndrome Status: Chronic Qualifiers: Sjogren's organ involvement: unspecified organ involvement Qualified Code(s): M35.00 - Sicca syndrome, unspecified Reason for Consult Date of Consultation: 09/16/18 Reason for Consultation: Hypoxia History of Present Illness: The patient is a 73 year old F, with past medical history listed below, who presented to [facility] on 09/15/2018 secondary to worsening shortness of breath. Patient reportedly had had worsening shortness of breath over the last month, but had noted significant weight gain, leg swelling since her discharge previously. Patient had been admitted to [facility] 6 times in the last 6 months, but the majority were related to bowel related issues. Patient did have to increase her oxygen to 5 L nasal cannula to maintain saturations. Patient had also reported recurrence of the diarrhea. Patient denied any chest pain, history of pulmonary embolism or long travel. In the emergency room, patient was noted to have shortness of breath, orthopnea, but no reported cyanosis. Patient did have to increase to 5 L nasal cannula from a baseline of 2 L nasal cannula. Patient had a CT scan of the abdomen that was unremarkable. Patient was given IV Lasix and admitted to the floor for optimization. Patient had recently been admitted to the hospital with hypokalemia, hyponatremia and dehydration that was thought to be secondary to Lasix therapy. Patient was reportedly discharged without Lasix and feels that this may have made an impact on her current condition. Patient states she is been on Lasix for years. Patient does carry a diagnosis of COPD and is currently cared for at the [facility] by Dr. Abraham, but she is unaware of her FEV1 or other measurements. Patient was able to do pulmonary rehab in 2014, but no recent data is available. Patient reportedly recently had an echocardiogram completed the [facility], but these results are not available for review. Since admitted to the hospital, patient does report some subjective improvement in overall condition. Patient currently has a fan blowing interface, which she states is helpful. Patient is frustrated by her diarrhea and abdominal bloating. Patient states that she has had difficulty with her breathing for over a month, but nobody is listening. Patient does report some mild hemoptysis, but states she has had some episodes of epistaxis and is unclear if these are related. Review of systems otherwise negative x10 systems. Past Medical History Past Medical History (Chronic Problems): Chronic Problems (Last Reviewed 09/16/18 @ 00:31 by Feli Dean DO) Pulmonary HTN (Chronic) Morbid obesity (Chronic) Chronic obstructive pulmonary disease (Chronic) IBS (irritable bowel syndrome) (Chronic) Degeneration of intervertebral disc of lumbosacral region (Chronic) Radiculopathy of lumbosacral region (Chronic) Spinal stenosis of lumbosacral region (Chronic) Primary osteoarthritis of right hip (Chronic) Spondylosis of lumbosacral region without myelopathy or radiculopathy (Chronic) Nonrheumatic aortic valve stenosis (Chronic) Nonrheumatic mitral valve insufficiency (Chronic) Heart failure (Chronic) Non Hodgkin's lymphoma (Chronic) Anxiety (Chronic) Depression (Chronic) Hypertension (Chronic) Hyperlipidemia (Chronic) Chronic respiratory failure (Chronic) copd 3 liters continuous Hypothyroidism (Chronic) GERD (gastroesophageal reflux disease) (Chronic) Diabetes mellitus, type II (Chronic) Benign essential HTN (Chronic) Sleep apnea (Chronic) Fatty liver disease, nonalcoholic (Chronic) Sjogren's syndrome (Chronic) Diverticulosis (Chronic) Mild aortic stenosis (Chronic) Medical History: Medical History (Last Reviewed 09/16/18 @ 00:31 by Feli Dean DO) Nonrheumatic aortic valve stenosis (Chronic) I35.0 Nonrheumatic mitral valve insufficiency (Chronic) I34.0 Heart failure (Chronic) I50.9 Hypertension (Chronic) I10 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 Breast pain, left N64.4 CHF (congestive heart failure) I50.9 Chronic obstructive pulmonary disease J44.9 Dyspnea on exertion R06.09 Neck pain M54.2 SCOTTY (obstructive sleep apnea) G47.33 Pseudomonas aeruginosa infection A49.8 Allergies adhesive Allergy (Verified 09/15/18 15:46) Itching adhesive tape Allergy (Verified 09/15/18 15:46) Rash amoxicillin trihydrate [From Augmentin] Allergy (Verified 09/15/18 15:46) Hives Iodinated Contrast- Oral and IV Dye Allergy (Verified 09/15/18 15:46) Shortness of breath latex Allergy (Verified 09/15/18 15:46) Rash Latex, Natural Rubber Allergy (Verified 09/15/18 15:46) Rash metronidazole [From Flagyl] Allergy (Verified 09/15/18 15:46) Hives Metronidazole HCl [From Flagyl] Allergy (Verified 09/15/18 15:46) Hives Penicillins [PCN] Allergy (Verified 09/15/18 15:46) Hives potassium clavulanate [From Augmentin] Allergy (Verified 09/15/18 15:46) Hives sulfamethoxazole [From Bactrim] Allergy (Verified 09/15/18 15:46) Hives hives trimethoprim [From Bactrim] Allergy (Verified 09/15/18 15:46) Hives hives diphenhydramine HCl [From Benadryl] Adverse Reaction (Verified 09/15/18 15:46) i could crawl to the ceiling i could crawl the ceiling omeprazole Adverse Reaction (Verified 09/15/18 15:46) Nausea promethazine HCl [From Phenergan] Adverse Reaction (Verified 09/15/18 15:46) Nausea antihistamine Allergy (Uncoded 09/15/18 15:46) i could crawl to the ceiling crawl the ceiling Home Medications: Ambulatory Orders Medication Instructions Recorded Albuterol Inhaler [Ventolin Hfa] 2 puff INHALATION Q6H PRN PRN 06/29/14 Levothyroxine [Synthroid] 25 mcg PO DAILY 06/29/14 Montelukast [Singulair] 10 mg PO QHS 06/29/14 Pantoprazole Sodium [Protonix] 40 mg PO BID 06/29/14 Sertraline HCl [Zoloft] 200 mg PO QHS 06/29/14 Albuterol Aerosols [Ventolin 2.5 mg INHALATION Q4H PRN PRN 08/20/14 Aerosols] Insulin Detemir [Levemir FlexPen] 15 units SUBCUT BID 01/26/15 Atorvastatin Calcium [Lipitor] 40 mg PO DAILY 09/18/15 Fluticasone 0.05% [Flonase Nasal 2 spray NASAL QHS 09/18/15 [place]] Liraglutide [Victoza 2-Yan] 1.8 mg SQ DAILY 09/18/15 Pregabalin [Lyrica] 50 mg PO TID 09/18/15 traZODone [Desyrel] 150 mg PO QHS 11/26/16 Loperamide [Imodium] 2 mg PO BID PRN PRN 12/03/16 Acetaminophen [Tylenol] 1,000 mg PO BID 10/11/17 Lisinopril [Zestril] 40 mg PO DAILY 10/11/17 Multivitamin [Multiple Vitamins] 1 tab PO DAILY 10/11/17 Insulin Lispro [Humalog KwikPen] 8 unit SQ BREAKFAST 11/18/17 Insulin Lispro [Humalog KwikPen] 8 units SQ LUNCH 11/18/17 Insulin Lispro [Humalog KwikPen] 12 unit SQ DINNER 11/18/17 Magnesium Oxide [Magnesium] 400 mg PO DAILY 11/18/17 Spironolactone [Aldactone] 25 mg PO BID 03/13/18 Nystatin Powder [Mycostatin Powder] 1 applic TOPICAL 4X/DAY PRN 03/31/18 Ondansetron [Zofran Odt] 4 mg PO Q8H PRN PRN #10 tab 07/07/18 Azithromycin 250 mg PO DAILY 07/29/18 Metformin HCl 1,000 mg PO QHS 07/29/18 busPIRone [Buspar] 15 mg PO BID 07/29/18 Methocarbamol 500 mg PO BID PRN PRN 09/12/18 Oxybutynin [Ditropan] 5 mg PO TID 09/12/18 Potassium Chloride [K-Dur] 40 meq PO BID #60 tab 09/13/18 Fluticasone/Umeclidin/Vilanter 1 puff INHALATION DAILY 09/15/18 [Trelegy Ellipta 100-62.5-25] Furosemide 80 mg PO BID 09/15/18 Guaifenesin [Mucinex] 600 mg PO BID 09/15/18 Metoprolol Succinate 50 mg PO BID 09/15/18 Surgical History: Surgical History (Last Reviewed 09/16/18 @ 00:31 by Feli Dean DO) H/O hemorrhoidectomy (Resolved) Z98.890 History of tonsillectomy (Resolved) Z90.89 S/P wrist surgery (Resolved) Z98.890 right Surgical History: - - Right breast hematoma removal, Left breast lumps removal, Right chest port, R Wrist surery, T+A, hemorrhoidectomy. 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 Lives: Alone Smoking Status: Former smoker Alcohol: None Drugs: None - *Family History Offspring Family History: Family History (Last Reviewed 09/16/18 @ 00:31 by Feli Dean DO) Brother CAD (coronary artery disease) CVA (cerebral vascular accident) Brother Sudden cardiac Brother CAD (coronary artery disease) Mother Heart disease Father Brain aneurysm History Items: Cancer, Diabetes, Hypertension Maternal Family History: Family History (Last Reviewed 09/16/18 @ 00:31 by Feli Dean DO) Brother CAD (coronary artery disease) CVA (cerebral vascular accident) Brother Sudden cardiac Brother CAD (coronary artery disease) Mother Heart disease Father Brain aneurysm History Items: - Sibling Family History: Family History (Last Reviewed 09/16/18 @ 00:31 by Feli Dean DO) Brother CAD (coronary artery disease) CVA (cerebral vascular accident) Brother Sudden cardiac Brother CAD (coronary artery disease) Mother Heart disease Father Brain aneurysm History Items: - Review of Systems Comment: See HPI Patient Problems: Active and Suspected Problems (Last Reviewed 09/16/18 @ 00:31 by Feli Dean DO) Dyspnea (Acute) Right-sided heart failure (Acute) Objective: Chest x-ray was personally reviewed and appears to have cephalization - Physical Exam General: Alert, Oriented x3, Cooperative, No apparent distress, - - Mild conversational dyspnea. Morbidly obese. HEENT: Atraumatic, PERRLA, EOMI, Normocephalic, - - Slight scleral injection. Glasses in place. Oral: Moist Mucosa, No Gingival or Mucosal Lesions/ Ulcerations Neck: Supple, No Nodes, Trachea Midline, JVD, Right Lungs: No rhonchi, No wheeze, Diminished, Rales, - - Symmetric expansion. No dullness to percussion. Cardiovascular: Regular rate, Regular Rhythm, Normal S1, Normal S2, Murmur - Grade 2 out of 6 systolic ejection murmur at the right sternal border, No rub noted, No Gallop Abdomen: Bowel Sounds Present, Soft, Non Tender, Non-Distended, Obese Extremities: No clubbing, No cyanosis, Edema - Left greater than right lower extremity Skin: - - Venous stasis changes Musculoskeletal: No Tenderness to Palpation of Joints or Extremities Lymphatic: No Cervical, Supraclavicular, or Inguinal Adenopathy Neurological: Cranial nerves II-XII grossly intact, Neuro grossly intact Psych/Mental Status: Alert and oriented to time, place, person, mood and affect Vital Signs Temp Pulse Resp BP Pulse Ox 36.9 C 79 18 153/71 H 95 09/16/18 10:00 09/16/18 10:00 09/16/18 10:00 09/16/18 10:00 09/16/18 10:00 Oxygen Flow Rate (L/min) 4 Oxygen Delivery Method Nasal Cannula Weight: 110.8 kg Body Mass Index (BMI) 44.9 Finger Stick Blood Glucose 204 Intake and Output for Last 24 Hours 09/14/18 09/15/18 09/16/18 23:59 23:59 23:59 Intake Total 240 / 240 120 / 120 Output Total 400 / 400 50 / 50 Balance -160 / -160 70 / 70 Laboratory Tests Past 24 Hrs 09/15/18 09/15/18 09/15/18 16:35 18:05 18:05 WBC 10.4 RBC 4.28 Hgb 12.5 Hct 39.6 MCV 92.5 MCH 29.2 MCHC 31.6 L RDW 14.6 RDW Differential 48.8 H Plt Count 218 MPV 10.1 Immature Gran % (Auto) 0.600 Neut % (Auto) 81.8 H Lymph % (Auto) 9.9 L Borden % (Auto) 6.4 Eos % (Auto) 1.2 Baso % (Auto) 0.1 Absolute Neuts (auto) 8.5 H Absolute Lymphs (auto) 1.03 Total Counted Not Reportable Sodium 143 Potassium 3.8 Chloride 101 Carbon Dioxide 34.0 H Anion Gap 8 BUN 9 Creatinine 0.83 Estim Creat Clear Calc 46.23 Est GFR (MDRD) Af Amer 87 Est GFR (MDRD) Non-Af 72 BUN/Creatinine Ratio 10.9 Glucose 187 H Calcium 8.7 Phosphorus Magnesium Total Bilirubin 0.80 AST 28 ALT 41 Alkaline Phosphatase 137 H Troponin I < 0.015 B-Natriuretic Peptide Total Protein 7.3 Albumin 3.4 Globulin 3.9 Albumin/Globulin Ratio 0.9 Triglycerides Cholesterol LDL Cholesterol VLDL Cholesterol HDL Cholesterol Urine Color Yellow Urine Clarity Clear Urine pH 6.5 Ur Specific Pep 1.005 Urine Protein 15 H Urine Glucose (UA) Normal Urine Ketones Negative Urine Occult Blood 10 H Urine Nitrite Negative Urine Bilirubin Negative Urine Urobilinogen Normal Ur Leukocyte Esterase 100 H Urine RBC 0 SEEN Urine WBC 0-5 SEEN Ur Squamous Epith Cells 5-10 SEEN Ur Transition Epith Cell 0-5 SEEN Urine Bacteria 0 SEEN Urine Mucus 0 SEEN 09/15/18 09/15/18 09/16/18 18:05 18:05 07:05 WBC 8.6 RBC 4.17 L Hgb 12.0 Hct 38.7 MCV 92.8 MCH 28.8 MCHC 31.0 L RDW 14.7 H RDW Differential 48.1 H Plt Count 206 MPV 10.1 Immature Gran % (Auto) 0.700 Neut % (Auto) 77.3 H Lymph % (Auto) 12.1 L Borden % (Auto) 7.9 Eos % (Auto) 1.8 Baso % (Auto) 0.2 Absolute Neuts (auto) 6.6 Absolute Lymphs (auto) 1.04 Total Counted Not Reportable Sodium Potassium Chloride Carbon Dioxide Anion Gap BUN Creatinine Estim Creat Clear Calc Est GFR (MDRD) Af Amer Est GFR (MDRD) Non-Af BUN/Creatinine Ratio Glucose Calcium Phosphorus Magnesium 2.2 Total Bilirubin AST ALT Alkaline Phosphatase Troponin I B-Natriuretic Peptide 138.8 H Total Protein Albumin Globulin Albumin/Globulin Ratio Triglycerides Cholesterol LDL Cholesterol VLDL Cholesterol HDL Cholesterol Urine Color Urine Clarity Urine pH Ur Specific Pep Urine Protein Urine Glucose (UA) Urine Ketones Urine Occult Blood Urine Nitrite Urine Bilirubin Urine Urobilinogen Ur Leukocyte Esterase Urine RBC Urine WBC Ur Squamous Epith Cells Ur Transition Epith Cell Urine Bacteria Urine Mucus 09/16/18 07:05 WBC RBC Hgb Hct MCV MCH MCHC RDW RDW Differential Plt Count MPV Immature Gran % (Auto) Neut % (Auto) Lymph % (Auto) Borden % (Auto) Eos % (Auto) Baso % (Auto) Absolute Neuts (auto) Absolute Lymphs (auto) Total Counted Sodium 141 Potassium 3.8 Chloride 102 Carbon Dioxide 35.0 H Anion Gap 4 L BUN 11 Creatinine 0.72 Estim Creat Clear Calc 38.37 Est GFR (MDRD) Af Amer 102 Est GFR (MDRD) Non-Af 84 BUN/Creatinine Ratio 15.2 Glucose 237 H Calcium 8.7 Phosphorus 3.5 Magnesium 1.9 Total Bilirubin 1.10 H AST 23 ALT 33 Alkaline Phosphatase 129 H Troponin I B-Natriuretic Peptide Total Protein 6.8 Albumin 3.1 L Globulin 3.7 Albumin/Globulin Ratio 0.8 L Triglycerides 213 H Cholesterol 149 LDL Cholesterol 68 VLDL Cholesterol 43 H HDL Cholesterol 38 L Urine Color Urine Clarity Urine pH Ur Specific Pep Urine Protein Urine Glucose (UA) Urine Ketones Urine Occult Blood Urine Nitrite Urine Bilirubin Urine Urobilinogen Ur Leukocyte Esterase Urine RBC Urine WBC Ur Squamous Epith Cells Ur Transition Epith Cell Urine Bacteria Urine Mucus POC Glucose 09/16/18 09/16/18 09/15/18 12:10 06:47 23:15 POC Glucose 240 H 219 H 272 H Clinical Impression(s) from Imaging Studies Abdomen CT 09/15/18 16:07 IMPRESSION: No acute abdominal or pelvic pathology. Right anterior abdominal wall region of encapsulated fat with scarring stable in appearance. Hepatic cirrhosis. Colonic diverticulosis. Left adrenal gland 2.2 cm adenoma. Electronically Signed: Rashi Pascual, at 19:53 EDT Tel , Service support , Chest X-Ray 09/15/18 18:45 IMPRESSION: Congestion with features described above. Electronically Signed: Rashi Pascual, at 19:26 EDT Tel , Service support , Assessment/Plan All Active Problems (Last Reviewed 09/16/18 @ 00:31 by Feli Dean DO) Dyspnea (Acute) Right-sided heart failure (Acute) Cervicalgia (Resolved) Chest pain (Resolved) Diarrhea (Resolved) Gastroenteritis (Resolved) H/O hemorrhoidectomy (Resolved) History of tonsillectomy (Resolved) Hyperglycemia (Resolved) Hypokalemia (Resolved) Recent urinary tract infection (Resolved) S/P wrist surgery (Resolved) RECOMMENDATIONS: 1. Obtain recent echocardiogram results 2. Agree with active diuresis 3. Replete potassium as necessary 4. Potentially obtain left lower extremity Doppler if not improving in 24 hours 5. Wean oxygen as tolerated, continuous pulse ox advisable 6. Continue home BiPAP therapy IMPRESSIONS: 1. Acute on chronic cor pulmonale/Sjogren's disease Likely multifactorial. Patient was found to be hypoxic on presentation. Patient does appear to be fluid overloaded at this time. Patient has increased left lower extremity edema, so DVT/PE would be a consideration. However, given patient's response to diuretic therapy, it would be reasonable to continue with diuresis for now. Will obtain old records from [facility]. Patient may require a repeat polysomnogram as an outpatient to evaluate for nocturnal hypoxemia. Sjogren's disease has been associated with connective tissue associated pulmonary hypertension. 2. Reported COPD with chronic respiratory failure 2 to 3 L nasal cannula at baseline Patient does not appear to be in a COPD exacerbation at this time. Patient does not report a prodromal fever, change in sputum or chest pain. Unknown baseline at this time. Will obtain old records. Patient does carry a history of non-Hodgkin's lymphoma, so may have an element of radiation toxicity to the chest. 3. Probable congestive heart failure, suspect diastolic/hypertension/hyperlipidemia Patient with morbid obesity, hypertension and hyperlipidemia. Clinical suspicion for an element of diastolic congestive heart failure. Patient is currently on diuretic therapy. Will obtain an echocardiogram from [facility]. Patient does have an aortic stenosis murmur, but severity is unclear at this time. 4. History of non-Hodgkin's lymphoma/anxiety/depression/hypothyroidism/SCOTTY Complicates care, management, recovery and prognosis. Okay to resume home therapies at this time. Patient would likely benefit from a repeat titration as an outpatient if agreeable. Patient is currently seen by the [facility]. Code Visit Inpatient E&M: 60661 Init Hosp L3
--- NOTE | 2018-09-16 13:34 | CASEMGMT ---
SONI reviewed therapy notes and patient was an assist of 2 people and therapy is stating she is not safe for home. SONI spoke with patient about [facility] TCU and she was agreeable to SW putting her name on the TCU list. She said she would likely go to TCU. SONI called [facility] and left a message putting patient's name on the list. Plan: Possible TCU [facility] CADET MSW
--- NOTE | 2018-09-16 14:04 | PCM.PN.HOSP ---
Patient Problems: Active and Suspected Problems (Last Reviewed 09/16/18 @ 00:31 by Feli Dean DO) Dyspnea (Acute) Right-sided heart failure (Acute) Subjective: Patient seen and examined. She was admitted with a complaint of shortness of breath. Patient was recently discharged about 3 days ago after she was admitted and managed for acute gastroenteritis. She states she went home but did not have a condition and her shortness of breath progressively worsened so she came back. She complains of lower extremity swelling and sensation short of breath. She denies any chest pain or palpitations or dizziness, review of systems otherwise negative. Labs and vitals reviewed. Vitals/I&O's: Vital Signs Temp Pulse Resp BP Pulse Ox 98.5 F 79 18 153/71 H 95 09/16/18 10:00 09/16/18 10:00 09/16/18 10:00 09/16/18 10:00 09/16/18 10:00 Oxygen Flow Rate (L/min) 4 Oxygen Delivery Method Nasal Cannula Weight: 244 lb 4.355 oz Body Mass Index (BMI) 44.9 Finger Stick Blood Glucose 204 Intake and Output for Last 24 Hours 09/14/18 09/15/18 09/16/18 23:59 23:59 23:59 Intake Total 240 / 240 120 / 120 Output Total 400 / 400 50 / 50 Balance -160 / -160 70 / 70 General: Alert, Oriented x3, Cooperative, No apparent distress HEENT: Atraumatic, PERRLA, EOMI, Normocephalic Oral: Moist Mucosa Neck: Supple, No JVD, Negative Carotid Bruits Lungs: - - decreased breath sounds bibasally, mild wheezing and crackles auscultated. on 4L of oxygen Cardiovascular: Regular rate, Regular Rhythm, Normal S1, Normal S2, No murmurs Abdomen: Bowel Sounds Present, Soft, Non Tender, No Hepato-splenomegaly, Obese Extremities: No clubbing, No cyanosis, Capillary Refill Less than 3 Seconds, - - mild 1+ bilateral LE pitting pedal edema Skin: No rashes, No breakdown Musculoskeletal: No Tenderness to Palpation of Joints or Extremities Lymphatic: No Cervical, Supraclavicular, or Inguinal Adenopathy Neurological: Cranial nerves II-XII grossly intact, Neuro grossly intact, Motor Exam 5/5 strength throughout Psych/Mental Status: Normal Affect, Appropriate, Alert and oriented to time, place, person, mood and affect Laboratory Results 09/15/18 16:35: Urine Color Yellow, Urine Clarity Clear, Urine pH 6.5, Ur Specific [place] 1.005, Urine Protein 15 H, Urine Glucose (UA) Normal, Urine Ketones Negative, Urine Occult Blood 10 H, Urine Nitrite Negative, Urine Bilirubin Negative, Urine Urobilinogen Normal, Ur Leukocyte Esterase 100 H, Urine RBC 0 SEEN, Urine WBC 0-5 SEEN, Ur Squamous Epith Cells 5-10 SEEN, Ur Transition Epith Cell 0-5 SEEN, Urine Bacteria 0 SEEN, Urine Mucus 0 SEEN 09/15/18 18:05: WBC 10.4, RBC 4.28, Hgb 12.5, Hct 39.6, MCV 92.5, MCH 29.2, MCHC 31.6 L, RDW 14.6, RDW Differential 48.8 H, Plt Count 218, MPV 10.1, Immature Gran % (Auto) 0.600, Neut % (Auto) 81.8 H, Lymph % (Auto) 9.9 L, [place] % (Auto) 6.4, Eos % (Auto) 1.2, Baso % (Auto) 0.1, Absolute Neuts (auto) 8.5 H, Absolute Lymphs (auto) 1.03, Total Counted Not Reportable 09/15/18 18:05: Sodium 143, Potassium 3.8, Chloride 101, Carbon Dioxide 34.0 H, Anion Gap 8, BUN 9, Creatinine 0.83, Estim Creat Clear Calc 46.23, Est GFR (MDRD) Af Amer 87, Est GFR (MDRD) Non-Af 72, BUN/Creatinine Ratio 10.9, Glucose 187 H, Calcium 8.7, Total Bilirubin 0.80, AST 28, ALT 41, Alkaline Phosphatase 137 H, Troponin I < 0.015, Total Protein 7.3, Albumin 3.4, Globulin 3.9, Albumin/Globulin Ratio 0.9 09/15/18 18:05: B-Natriuretic Peptide 138.8 H 09/15/18 18:05: Magnesium 2.2 09/15/18 23:15: POC Glucose 272 H 09/16/18 06:47: POC Glucose 219 H 09/16/18 07:05: WBC 8.6, RBC 4.17 L, Hgb 12.0, Hct 38.7, MCV 92.8, MCH 28.8, MCHC 31.0 L, RDW 14.7 H, RDW Differential 48.1 H, Plt Count 206, MPV 10.1, Immature Gran % (Auto) 0.700, Neut % (Auto) 77.3 H, Lymph % (Auto) 12.1 L, [place] % (Auto) 7.9, Eos % (Auto) 1.8, Baso % (Auto) 0.2, Absolute Neuts (auto) 6.6, Absolute Lymphs (auto) 1.04, Total Counted Not Reportable 09/16/18 07:05: Sodium 141, Potassium 3.8, Chloride 102, Carbon Dioxide 35.0 H, Anion Gap 4 L, BUN 11, Creatinine 0.72, Estim Creat Clear Calc 38.37, Est GFR (MDRD) Af Amer 102, Est GFR (MDRD) Non-Af 84, BUN/Creatinine Ratio 15.2, Glucose 237 H, Calcium 8.7, Phosphorus 3.5, Magnesium 1.9, Total Bilirubin 1.10 H, AST 23, ALT 33, Alkaline Phosphatase 129 H, Total Protein 6.8, Albumin 3.1 L, Globulin 3.7, Albumin/Globulin Ratio 0.8 L, Triglycerides 213 H, Cholesterol 149, LDL Cholesterol 68, VLDL Cholesterol 43 H, HDL Cholesterol 38 L 09/16/18 12:10: POC Glucose 240 H Diagnostic Data Abdomen CT 09/15/18 16:07 IMPRESSION: No acute abdominal or pelvic pathology. Right anterior abdominal wall region of encapsulated fat with scarring stable in appearance. Hepatic cirrhosis. Colonic diverticulosis. Left adrenal gland 2.2 cm adenoma. Electronically Signed: Rashi Pascual, at 19:53 EDT Tel , Service support , Chest X-Ray 09/15/18 18:45 IMPRESSION: Congestion with features described above. Electronically Signed: Rashi Pascual, at 19:26 EDT Tel , Service support , Current Medications Acetaminophen (Tylenol) 1,000 mg PO BID DANIELLE Last Admin: 09/16/18 09:56 Dose: 1,000 mg Documented by: Albuterol Sulfate (Ventolin Aerosols) 2.5 mg INHALATION Q2H PRN PRN PRN Reason: breathing Last Admin: 09/16/18 00:43 Dose: 2.5 mg Documented by: Atorvastatin Calcium (Lipitor) 40 mg PO QHS [facility] Azithromycin (Zithromax) 250 mg PO DAILY [facility] Last Admin: 09/16/18 09:56 Dose: 250 mg Documented by: Buspirone HCl (Buspar) 5 mg PO BID [facility] Last Admin: 09/16/18 08:35 Dose: 5 mg Documented by: Dextrose (D50w Syringe) 0 gm IV X1 PRN; Protocol PRN Reason: Hypoglycemia Enoxaparin Sodium (Lovenox) 40 mg SC DAILY@1000 [facility] Last Admin: 09/16/18 09:57 Dose: 40 mg Documented by: Fluticasone Propionate (Flonase Nasal [place]) 2 spray NASAL QHS [facility] Last Admin: 09/15/18 23:19 Dose: 2 spray Documented by: Furosemide (Lasix) 40 mg IV Q8 [facility] Last Admin: 09/16/18 06:06 Dose: 40 mg Documented by: Glucagon () 1 mg IM .X1 PRN PRN Reason: Hypoglycemia Guaifenesin (Mucinex) 600 mg PO BID [facility] Last Admin: 09/16/18 09:57 Dose: 600 mg Documented by: Heparin Sodium (Beef Lung) () 50 units IV UD PRN PRN Reason: HEPARIN FLUSH Insulin Glargine (Lantus (Bkc)) 15 units SC BID [facility] Last Admin: 09/16/18 09:58 Dose: 15 u Documented by: Insulin Human Lispro (Humalog Kwikpen (Bkc)) 8 unit SC BREAKFAST [facility] Last Admin: 09/16/18 08:30 Dose: 8 u Documented by: Insulin Human Lispro (Humalog Kwikpen (Bkc)) 8 unit SC LUNCH [facility] Last Admin: 09/16/18 12:36 Dose: 8 u Documented by: Insulin Human Lispro (Humalog Kwikpen (Bkc)) 12 unit SC DINNER [facility] Levothyroxine Sodium (Synthroid) 25 mcg PO DAILY@0600 [facility] Last Admin: 09/16/18 06:06 Dose: 25 mcg Documented by: Lisinopril (Zestril) 40 mg PO DAILY [facility] Last Admin: 09/16/18 09:57 Dose: 40 mg Documented by: Loperamide HCl (Imodium) 2 mg PO BID PRN PRN PRN Reason: Diarrhea Magnesium Oxide (Mag-Ox 400) 400 mg PO DAILY [facility] Last Admin: 09/16/18 08:35 Dose: 400 mg Documented by: Metoprolol Succinate (Toprol Xl (Beta Gisel)) 50 mg PO BID [facility] Last Admin: 09/16/18 09:57 Dose: 50 mg Documented by: Montelukast Sodium (Singulair) 10 mg PO QHS [facility] Last Admin: 09/15/18 23:22 Dose: 10 mg Documented by: Multivitamins (Multivitamin) 1 tablet PO DAILY@0800 [facility] Last Admin: 09/16/18 08:35 Dose: 1 tablet Documented by: Nystatin (Mycostatin Powder) 1 applic TOPICAL 4X/DAY PRN; Protocol PRN Reason: IRRITATION Ondansetron HCl (Zofran Odt) 4 mg PO Q8H PRN PRN PRN Reason: NAUSEA Pantoprazole Sodium (Protonix) 40 mg PO BID [facility] Last Admin: 09/16/18 09:57 Dose: 40 mg Documented by: Potassium Chloride (K-Dur) 40 meq PO BID [facility] Last Admin: 09/16/18 08:35 Dose: 40 meq Documented by: Pregabalin (Lyrica) 50 mg PO TID [facility] Last Admin: 09/16/18 06:06 Dose: 50 mg Documented by: Sertraline HCl (Zoloft) 200 mg PO QHS [facility] Last Admin: 09/15/18 23:23 Dose: 200 mg Documented by: Sodium Chloride () 10 - 40 ml IV UD PRN PRN Reason: VAD FLUSH Last Admin: 09/16/18 07:02 Dose: 20 ml Documented by: Spironolactone (Aldactone) 25 mg PO BID [facility] Last Admin: 09/16/18 10:01 Dose: 25 mg Documented by: Trazodone HCl (Desyrel) 150 mg PO QHS [facility] Last Admin: 09/15/18 23:21 Dose: 150 mg Documented by: Medical Necessity - Tobacco Use Smoking Status: Former smoker Assessment/Plan All Active Problems (Last Reviewed 09/16/18 @ 00:31 by Silvana Sementi, DO) Dyspnea (Acute) Right-sided heart failure (Acute) Cervicalgia (Resolved) Chest pain (Resolved) Diarrhea (Resolved) Gastroenteritis (Resolved) H/O hemorrhoidectomy (Resolved) History of tonsillectomy (Resolved) Hyperglycemia (Resolved) Hypokalemia (Resolved) Recent urinary tract infection (Resolved) S/P wrist surgery (Resolved) 1. Acute on chronic HF preserved EF admitted with SOB, which worsened when she got home with no airconditioning this is further complicated by super morbid obesity, COPD nad chronic hypertension on IV Lasix 40 mg q8 daily. Awaiting copy of 2D echo record from [employer] operator office. Monitor intake and output. Fluid restriction thousand 500 cc daily. 2. Chronic respiratory failure due to COPD: On 2 to 3 L at the time. Not in exacerbation now. Titrate oxygen to maintain saturation above 90%. breathing treatments on singulair 3. COPD: as under 2. 4. Aortic valve stenosis and mitral valve insufficiency: stable. 6. Hypertension: on metoprolol 7. Hyperlipidemia: 8. Anxiety and depression: on trazodone and sertraline. also on buspar 9. Hypothyroidism: on synthroid 10. Supermorbid obesity 11. SCOTTY: Continue home BiPAP. 12. Type 2 diabetes mellitus: On Lantus 15 units twice daily and short-acting insulin 8 units for lunch and breakfast, and 12IU for dinner. Insulin sliding scale. History of non-Hodgkin lymphoma: stable. DVT prpohylaxis: lovenox Code Visit Inpatient E&M: 10093 Subs Hosp L2
[2018-09-16 16:36] LABS: Bedside Glucose 265 mg/dL (70-110)
[2018-09-16] MEDS: Insulin Lispro 100 UNIT/ML INSULN.PEN 12 UNIT SC (17:24)
[2018-09-16] MEDS: Menthol/Lanolin/Calamine/Znox 113 GM Tube 1 APPLIC TOPICAL ×2 (18:50→21:22)
[2018-09-16] MEDS: Atorvastatin Calcium 40 MG Tablet PO (21:23)
[2018-09-16] MEDS: Montelukast 10 MG Tablet PO (21:23)
[2018-09-16] MEDS: traZODone 100 MG Tablet 150 MG PO (21:24)
[2018-09-16] MEDS: Sertraline 100 MG Tablet 200 MG PO (21:24)
[2018-09-16] MEDS: Fluticasone 0.05% 1 SPRAY NASAL.SRY 2 SPRAY NASAL (21:26)
[2018-09-17] VITALS (16 sets, daily range): BP systolic 128–172; BP diastolic 61–87; PULSE 64–78; RESP 16–18; TEMP 36.5–36.8; O2SAT 91–96
[2018-09-17 01:00] LABS: Bedside Glucose 229 mg/dL (70-110)
[2018-09-17] MEDS: 0.9% NaCl VAD Flush IV ×3 (04:34→22:31)
[2018-09-17 04:47] LABS: Absolute Lymphocyte Count 1.31 X10^3/ul (0.83-4.51); Absolute Neutrophil Count 5.9 X10^3/uL (2.0-7.7); Basophil# 0.01 X10^3/uL; Basophil% 0.1 % (0-1); Eosinophil# 0.19 X10^3/uL; Eosinophils% 2.4 % (0-5); Hematocrit 36.6 % (37-47); Hemoglobin 11.5 g/dl (12.0-15.0); Lymphocyte # 1.31 X10^3/ul (4.0); Lymphocyte % 16.2 % (19-41); Mean Corp Hgb Conc 31.4 g/gl (32-36); Mean Corpuscular Hgb 29.3 pg (27.0-32.0); Mean Corpuscular Volume 93.4 fL (81-99); Monocyte# 0.59 X10^3/uL; Monocyte% 7.3 % (0-10); Neutrophil # 5.94 X10^3/uL (2.7-7.7); Neutrophil % 73.5 % (47-70); Platelet Count 200 K/mm3 (150-450); RBC Distribution Width CV 14.6 % (11.6-14.6); RBC Distribution Width SD 49.6 fl (35.1-43.9); Red Blood Count 3.92 M/mm3 (4.2-5.4); White Blood Count 8.1 K/mm3 (4.4-11.0)
[2018-09-17 04:53] LABS: POSITIVE COUNT NO; POSITIVE DIFFERENTIAL NO; POSITIVE MORPHOLOGY NO
[2018-09-17 04:57] LABS: Anion Gap 6 (5-15); BUN 17 mg/dL (7-18); BUN/Creat Ratio 22.5 RATIO (10-20); Calcium,Total 8.7 mg/dL (8.5-10.1); Chloride 103 mmol/L (98-107); Creatinine, Serum 0.75 mg/dL (0.55-1.02); EST Glomerular Filtration Rate 80 mL/min (>60); Est Glom Filt Rate - Afr Amer 97 mL/min (>60); Estimated Creatinine Clearance 38.37 ml/min; Glucose 181 mg/dL (74-106); Sodium Level 145 mmol/L (136-145)
[2018-09-17] MEDS: Furosemide 40 MG/4 ML Vial IV ×3 (06:25→22:28)
[2018-09-17] MEDS: Levothyroxine 25 MCG TABLET PO (06:25)
[2018-09-17] MEDS: Pregabalin 50 MG Capsule PO ×3 (06:25→22:30)
[2018-09-17 07:01] LABS: Bedside Glucose 181 mg/dL (70-110)
[2018-09-17] MEDS: Insulin Lispro 100 UNIT/ML INSULN.PEN 8 UNIT SC ×2 (09:21→11:29)
[2018-09-17] MEDS: busPIRone 5 MG Tablet PO ×2 (09:22→22:25)
[2018-09-17] MEDS: Menthol/Lanolin/Calamine/Znox 113 GM Tube 1 APPLIC TOPICAL ×4 (09:22→22:26)
[2018-09-17] MEDS: Spironolactone 25 MG Tablet PO ×2 (09:22→22:25)
[2018-09-17] MEDS: Multivitamins,Therapeutic Tablet 1 TABLET PO (09:22)
[2018-09-17] MEDS: Enoxaparin 40 MG/0.4 ML Syringe SC (09:23)
[2018-09-17] MEDS: Acetaminophen 500 MG Tablet 1000 MG PO ×2 (09:24→22:31)
[2018-09-17] MEDS: Magnesium Oxide 400 MG Tablet PO (09:24)
[2018-09-17] MEDS: Pantoprazole Sodium 40 MG Tablet PO ×2 (09:24→22:30)
[2018-09-17] MEDS: guaiFENesin 600 MG Tablet PO ×2 (09:24→22:30)
[2018-09-17] MEDS: Metoprolol(XL)Succ 50 MG Tablet PO ×2 (09:24→22:31)
[2018-09-17] MEDS: Azithromycin 250 MG Tablet PO (09:25)
[2018-09-17] MEDS: Lisinopril 40 MG Tablet PO (09:25)
--- NOTE | 2018-09-17 10:13 | PN_ITS ---
Patient Problems: Active and Suspected Problems (Last Reviewed 09/16/18 @ 00:31 by Feli Dean DO) Dyspnea (Acute) Right-sided heart failure (Acute) Subjective: Patient did okay overnight. No acute issues were reported. Patient states she feels subjectively improved compared to previous. Patient did wear her CPAP w ith sleep and did well. Patient is putting her exercise tolerance at approximately 10 feet at this point. - Physical Exam General: Alert, Oriented x3, Cooperative, No apparent distress, - - No conversational dyspnea. Morbidly obese. HEENT: Atraumatic, PERRLA, EOMI, Normocephalic, - - No scleral icterus or injection noted. Glasses in place. Oral: Moist Mucosa, No Gingival or Mucosal Lesions/ Ulcerations Neck: Supple, No JVD, No Nodes, Trachea Midline Lungs: No rhonchi, No rales, Diminished, Wheezes, - - Symmetric expansion. Cardiovascular: Regular rate, Regular Rhythm, Normal S1, Normal S2, Murmur, No rub noted, No Gallop, - - Somewhat distant heart sounds Abdomen: Bowel Sounds Present, Soft, Non Tender, Non-Distended, Obese Extremities: No clubbing, No cyanosis, Capillary Refill Less than 3 Seconds, Edema Skin: - - No significant change compared to previous Musculoskeletal: No Tenderness to Palpation of Joints or Extremities Lymphatic: No Cervical, Supraclavicular, or Inguinal Adenopathy Neurological: Cranial nerves II-XII grossly intact, Neuro grossly intact, Motor Exam 5/5 strength throughout Psych/Mental Status: Alert and oriented to time, place, person, mood and affect Vital Signs Temp Pulse Resp BP Pulse Ox 36.8 C 73 16 146/80 H 94 09/17/18 09:00 09/17/18 09:24 09/17/18 09:00 09/17/18 09:24 09/17/18 09:00 Oxygen Flow Rate (L/min) 3.5 Oxygen Delivery Method Nasal Cannula Weight: 109.5 kg Body Mass Index (BMI) 44.9 Finger Stick Blood Glucose 204 Intake and Output for Last 24 Hours 09/15/18 09/16/18 09/17/18 23:59 23:59 23:59 Intake Total 240 / 240 1260 / 1260 Output Total 400 / 400 1650 / 1650 Balance -160 / -160 -390 / -390 Laboratory Tests Past 24 Hrs 09/17/18 09/17/18 04:30 04:30 WBC 8.1 RBC 3.92 L Hgb 11.5 L Hct 36.6 L MCV 93.4 MCH 29.3 MCHC 31.4 L RDW 14.6 RDW Differential 49.6 H Plt Count 200 MPV 10.0 Immature Gran % (Auto) 0.500 Neut % (Auto) 73.5 H Lymph % (Auto) 16.2 L [place] % (Auto) 7.3 Eos % (Auto) 2.4 Baso % (Auto) 0.1 Absolute Neuts (auto) 5.9 Absolute Lymphs (auto) 1.31 Total Counted Not Reportable Sodium 145 Potassium 4.0 Chloride 103 Carbon Dioxide 36.0 H Anion Gap 6 BUN 17 Creatinine 0.75 Estim Creat Clear Calc 38.37 Est GFR (MDRD) Af Amer 97 Est GFR (MDRD) Non-Af 80 BUN/Creatinine Ratio 22.5 H Glucose 181 H Calcium 8.7 POC Glucose 09/17/18 09/16/18 09/16/18 06:29 21:16 16:32 POC Glucose 181 H 229 H 265 H 09/16/18 12:10 POC Glucose 240 H Medical Necessity - Tobacco Use Smoking Status: Former smoker Assessment/Plan All Active Problems (Last Reviewed 09/16/18 @ 00:31 by Feli Dean DO) Dyspnea (Acute) Right-sided heart failure (Acute) Cervicalgia (Resolved) Chest pain (Resolved) Diarrhea (Resolved) Gastroenteritis (Resolved) H/O hemorrhoidectomy (Resolved) History of tonsillectomy (Resolved) Hyperglycemia (Resolved) Hypokalemia (Resolved) Recent urinary tract infection (Resolved) S/P wrist surgery (Resolved) RECOMMENDATIONS: 1. Obtain recent echocardiogram results 2. Agree with active diuresis, consider adding metolazone 3. Replete potassium as necessary 4. Potentially obtain left lower extremity Doppler if not improving in 24 hours 5. Wean oxygen as tolerated, continuous pulse ox advisable 6. Continue home BiPAP therapy IMPRESSIONS: 1. Acute on chronic cor pulmonale/Sjogren's disease Likely multifactorial. Patient was found to be hypoxic on presentation. Patient does appear to be fluid overloaded at this time. Patient has increased left lower extremity edema, so DVT/PE would be a consideration. Patient has not had a very aggressive response to diuretic therapy despite high doses of Lasix. Consider addition of metolazone or other thiazide diuretic. Will obtain old records from [facility]. Patient may require a repeat polysomnogram as an outpatient to evaluate for nocturnal hypoxemia. Sjogren's disease has been associated with connective tissue associated pulmonary hypertension. 2. Reported COPD with chronic respiratory failure 2 to 3 L nasal cannula at baseline Patient does not appear to be in a COPD exacerbation at this time. Patient does not report a prodromal fever, change in sputum or chest pain. Unknown baseline at this time. Will obtain old records. Patient does carry a history of non-Hodgkin's lymphoma, so may have an element of radiation toxicity to the chest. 3. Probable congestive heart failure, suspect diastolic/hypertension/hyperlipidemia Patient with morbid obesity, hypertension and hyperlipidemia. Clinical suspicion for an element of diastolic congestive heart failure. Patient is currently on diuretic therapy. Will obtain an echocardiogram from [facility]. Patient does have an aortic stenosis murmur, but severity is unclear at this time. 4. History of non-Hodgkin's lymphoma/anxiety/depression/hypothyroidism/SCOTTY Complicates care, management, recovery and prognosis. Okay to resume home therapies at this time. Patient would likely benefit from a repeat titration as an outpatient if agreeable. Patient is currently seen by the [facility]. Code Visit Inpatient E&M: 87428 [facility] Hosp L2
[2018-09-17 11:36] LABS: Bedside Glucose 266 mg/dL (70-110)
[2018-09-17] MEDS: Metolazone 2.5 MG Tablet PO (12:57)
--- NOTE | 2018-09-17 13:03 | PN_ITS ---
Patient Problems: Active and Suspected Problems (Last Reviewed 09/16/18 @ 00:31 by Feli Dean DO) Dyspnea (Acute) Right-sided heart failure (Acute) Subjective: Patient seen and examined. States shortness of breath is better. Still complains of feeling bloated and swollen. She denies any chest pain or palpitations or dizziness. She is down to 3 L of oxygen which is at her baseline. Review of systems otherwise negative. Labs and vitals reviewed. Vitals/I&O's: Vital Signs Temp Pulse Resp BP Pulse Ox 98.2 F 67 16 146/80 H 94 09/17/18 09:00 09/17/18 10:00 09/17/18 10:00 09/17/18 09:24 09/17/18 10:00 Oxygen Flow Rate (L/min) 3.5 Oxygen Delivery Method Nasal Cannula Weight: 241 lb 6.499 oz Body Mass Index (BMI) 44.9 Finger Stick Blood Glucose 204 Intake and Output for Last 24 Hours 09/15/18 09/16/18 09/17/18 23:59 23:59 23:59 Intake Total 240 / 240 1260 / 1260 Output Total 400 / 400 1650 / 1650 Balance -160 / -160 -390 / -390 General: Alert, Oriented x3, Cooperative, No apparent distress HEENT: Atraumatic, PERRLA, EOMI, Normocephalic Oral: Moist Mucosa Neck: Supple, No JVD, Negative Carotid Bruits Lungs: - - mildly diminished breath sounds bibasally, on 3L of oxygen Cardiovascular: Regular rate, Regular Rhythm, Normal S1, Normal S2, No murmurs Abdomen: Bowel Sounds Present, Soft, Non Tender, No Hepato-splenomegaly, Obese Extremities: No clubbing, No cyanosis, Capillary Refill Less than 3 Seconds, - - mild 1+ bilateral LE pitting pedal edema Skin: No rashes, No breakdown Musculoskeletal: No Tenderness to Palpation of Joints or Extremities Lymphatic: No Cervical, Supraclavicular, or Inguinal Adenopathy Neurological: Cranial nerves II-XII grossly intact, Neuro grossly intact, Motor Exam 5/5 strength throughout Psych/Mental Status: Normal Affect, Appropriate, Alert and oriented to time, place, person, mood and affect Laboratory Results 09/16/18 16:32: POC Glucose 265 H 09/16/18 21:16: POC Glucose 229 H 09/17/18 04:30: WBC 8.1, RBC 3.92 L, Hgb 11.5 L, Hct 36.6 L, MCV 93.4, MCH 29.3, MCHC 31.4 L, RDW 14.6, RDW Differential 49.6 H, Plt Count 200, MPV 10.0, Immature Gran % (Auto) 0.500, Neut % (Auto) 73.5 H, Lymph % (Auto) 16.2 L, [place] % (Auto) 7.3, Eos % (Auto) 2.4, Baso % (Auto) 0.1, Absolute Neuts (auto) 5.9, Absolute Lymphs (auto) 1.31, Total Counted Not Reportable 09/17/18 04:30: Sodium 145, Potassium 4.0, Chloride 103, Carbon Dioxide 36.0 H, Anion Gap 6, BUN 17, Creatinine 0.75, Estim Creat Clear Calc 38.37, Est GFR (MDRD) Af Amer 97, Est GFR (MDRD) Non-Af 80, BUN/Creatinine Ratio 22.5 H, Glucose 181 H, Calcium 8.7 09/17/18 06:29: POC Glucose 181 H 09/17/18 11:27: POC Glucose 266 H Current Medications Acetaminophen (Tylenol) 1,000 mg PO BID [facility] Last Admin: 09/17/18 09:24 Dose: 1,000 mg Documented by: Albuterol Sulfate (Ventolin Aerosols) 2.5 mg INHALATION Q2H PRN PRN PRN Reason: breathing Last Admin: 09/16/18 00:43 Dose: 2.5 mg Documented by: Atorvastatin Calcium (Lipitor) 40 mg PO QHS [facility] Last Admin: 09/16/18 21:23 Dose: 40 mg Documented by: Azithromycin (Zithromax) 250 mg PO DAILY [facility] Last Admin: 09/17/18 09:25 Dose: 250 mg Documented by: Buspirone HCl (Buspar) 5 mg PO BID [facility] Last Admin: 09/17/18 09:22 Dose: 5 mg Documented by: Calamine/Phenol (Calmoseptine Ointment) 1 applic TOPICAL 4X/DAY [facility]; Protocol Last Admin: 09/17/18 09:22 Dose: 1 applicatio Documented by: Dextrose (D50w Syringe) 0 gm IV X1 PRN; Protocol PRN Reason: Hypoglycemia Enoxaparin Sodium (Lovenox) 40 mg SC DAILY@1000 [facility] Last Admin: 09/17/18 09:23 Dose: 40 mg Documented by: Fluticasone Propionate (Flonase Nasal [place]) 2 spray NASAL QHS [facility] Last Admin: 09/16/18 21:26 Dose: 2 spray Documented by: Furosemide (Lasix) 40 mg IV Q8 [facility] Last Admin: 09/17/18 06:25 Dose: 40 mg Documented by: Glucagon () 1 mg IM .X1 PRN PRN Reason: Hypoglycemia Guaifenesin (Mucinex) 600 mg PO BID [facility] Last Admin: 09/17/18 09:24 Dose: 600 mg Documented by: Heparin Sodium (Beef Lung) () 50 units IV UD PRN PRN Reason: HEPARIN FLUSH Insulin Glargine (Lantus (Bkc)) 15 units SC BID [facility] Last Admin: 09/17/18 09:22 Dose: 15 u Documented by: Insulin Human Lispro (Humalog Kwikpen (Bkc)) 8 unit SC BREAKFAST [facility] Last Admin: 09/17/18 09:21 Dose: 8 u Documented by: Insulin Human Lispro (Humalog Kwikpen (Bkc)) 8 unit SC LUNCH [facility] Last Admin: 09/17/18 11:29 Dose: 8 u Documented by: Insulin Human Lispro (Humalog Kwikpen (Bkc)) 12 unit SC DINNER [facility] Last Admin: 09/16/18 17:24 Dose: 12 u Documented by: Levothyroxine Sodium (Synthroid) 25 mcg PO DAILY@0600 [facility] Last Admin: 09/17/18 06:25 Dose: 25 mcg Documented by: Lisinopril (Zestril) 40 mg PO DAILY [facility] Last Admin: 09/17/18 09:25 Dose: 40 mg Documented by: Loperamide HCl (Imodium) 2 mg PO BID PRN PRN PRN Reason: Diarrhea Magnesium Oxide (Mag-Ox 400) 400 mg PO DAILY [facility] Last Admin: 09/17/18 09:24 Dose: 400 mg Documented by: Metolazone (Zaroxolyn) 2.5 mg PO DAILY [facility] Last Admin: 09/17/18 12:57 Dose: 2.5 mg Documented by: Metoprolol Succinate (Toprol Xl (Beta Gisel)) 50 mg PO BID [facility] Last Admin: 09/17/18 09:24 Dose: 50 mg Documented by: Montelukast Sodium (Singulair) 10 mg PO QHS [facility] Last Admin: 09/16/18 21:23 Dose: 10 mg Documented by: Multivitamins (Multivitamin) 1 tablet PO DAILY@0800 [facility] Last Admin: 09/17/18 09:22 Dose: 1 tablet Documented by: Nystatin (Mycostatin Powder) 1 applic TOPICAL 4X/DAY PRN; Protocol PRN Reason: IRRITATION Ondansetron HCl (Zofran Odt) 4 mg PO Q8H PRN PRN PRN Reason: NAUSEA Pantoprazole Sodium (Protonix) 40 mg PO BID [facility] Last Admin: 09/17/18 09:24 Dose: 40 mg Documented by: Potassium Chloride (K-Dur) 40 meq PO BID [facility] Last Admin: 09/17/18 09:22 Dose: 40 meq Documented by: Pregabalin (Lyrica) 50 mg PO TID [facility] Last Admin: 09/17/18 06:25 Dose: 50 mg Documented by: Sertraline HCl (Zoloft) 200 mg PO QHS [facility] Last Admin: 09/16/18 21:24 Dose: 200 mg Documented by: Sodium Chloride () 10 - 40 ml IV UD PRN PRN Reason: VAD FLUSH Last Admin: 09/17/18 06:25 Dose: 10 ml Documented by: Spironolactone (Aldactone) 25 mg PO BID [facility] Last Admin: 09/17/18 09:22 Dose: 25 mg Documented by: Trazodone HCl (Desyrel) 150 mg PO QHS [facility] Last Admin: 09/16/18 21:24 Dose: 150 mg Documented by: Medical Necessity - Tobacco Use Smoking Status: Former smoker Assessment/Plan All Active Problems (Last Reviewed 09/16/18 @ 00:31 by Feli Dean DO) Dyspnea (Acute) Right-sided heart failure (Acute) Cervicalgia (Resolved) Chest pain (Resolved) Diarrhea (Resolved) Gastroenteritis (Resolved) H/O hemorrhoidectomy (Resolved) History of tonsillectomy (Resolved) Hyperglycemia (Resolved) Hypokalemia (Resolved) Recent urinary tract infection (Resolved) S/P wrist surgery (Resolved) 1. Acute on chronic HF preserved EF * SOB is improving * on IV lasix 40mg tid. 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 * Monitor intake and output. * Fluid restriction thousand 500 cc daily. * 2. Chronic respiratory failure due to COPD: * On 2 to 3 L Titrate oxygen to maintain saturation above 90%. * breathing treatments * on singulair * 3. COPD: as under 2. * 4. Aortic valve stenosis and mitral valve insufficiency: stable. 6. Hypertension: on metoprolol 7. Hyperlipidemia: 8. Anxiety and depression: on trazodone and sertraline. also on buspar 9. Hypothyroidism: on synthroid 10. Supermorbid obesity 11. SCOTTY: Continue home BiPAP. 12. Type 2 diabetes mellitus: On Lantus 15 units twice daily and short-acting insulin 8 units for lunch and breakfast, and 12IU for dinner. Insulin sliding scale. History of non-Hodgkin lymphoma: stable. DVT prophylaxis: lovenox Disposition: wants to go to SNF. Precert process started. Code Visit Inpatient E&M: 97710 Subs Hosp L2
--- NOTE | 2018-09-17 15:29 | CASEMGMT ---
Patient was approved to go to TCU. Plan: [facility] TCU when ready. Tracy SMITH
[2018-09-17] MEDS: Insulin Lispro 100 UNIT/ML INSULN.PEN 12 UNIT SC (16:52)
[2018-09-17 17:00] LABS: Bedside Glucose 155 mg/dL (70-110)
[2018-09-17] MEDS: traZODone 100 MG Tablet 150 MG PO (22:26)
[2018-09-17] MEDS: Fluticasone 0.05% 1 SPRAY NASAL.SRY 2 SPRAY NASAL (22:27)
[2018-09-17] MEDS: Montelukast 10 MG Tablet PO (22:30)
[2018-09-17] MEDS: Sertraline 100 MG Tablet 200 MG PO (22:31)
[2018-09-17] MEDS: Atorvastatin Calcium 40 MG Tablet PO (22:36)
[2018-09-17 22:51] LABS: Bedside Glucose 206 mg/dL (70-110)
[2018-09-18] VITALS (12 sets, daily range): BP systolic 120–137; BP diastolic 59–70; PULSE 57–97; RESP 14–18; TEMP 36.4–36.8; O2SAT 94–97
[2018-09-18] MEDS: Levothyroxine 25 MCG TABLET PO (06:27)
[2018-09-18] MEDS: Furosemide 40 MG/4 ML Vial IV ×2 (06:27→15:42)
[2018-09-18] MEDS: Pregabalin 50 MG Capsule PO ×2 (06:27→15:42)
[2018-09-18] MEDS: 0.9% NaCl VAD Flush IV ×4 (06:28→06:31)
[2018-09-18 06:45] LABS: Absolute Lymphocyte Count 1.87 X10^3/ul (0.83-4.51); Basophil# 0.04 X10^3/uL; Basophil% 0.5 % (0-1); Eosinophil# 0.17 X10^3/uL; Eosinophils% 1.9 % (0-5); Hematocrit 40.6 % (37-47); Hemoglobin 12.7 g/dl (12.0-15.0); Lymphocyte # 1.87 X10^3/ul (4.0); Lymphocyte % 21.2 % (19-41); Mean Corp Hgb Conc 31.3 g/gl (32-36); Mean Corpuscular Hgb 28.6 pg (27.0-32.0); Mean Corpuscular Volume 91.4 fL (81-99); Mean Platelet Vol. 10.4 fl (6.2-12.0); Monocyte# 0.71 X10^3/uL; Neutrophil # 5.96 X10^3/uL (2.7-7.7); Neutrophil % 67.5 % (47-70); Platelet Count 254 K/mm3 (150-450); RBC Distribution Width CV 14.6 % (11.6-14.6); RBC Distribution Width SD 47.8 fl (35.1-43.9); Red Blood Count 4.44 M/mm3 (4.2-5.4); White Blood Count 8.8 K/mm3 (4.4-11.0)
[2018-09-18 06:51] LABS: POSITIVE COUNT NO; POSITIVE DIFFERENTIAL NO; POSITIVE MORPHOLOGY NO
[2018-09-18 07:05] LABS: Bedside Glucose 171 mg/dL (70-110)
[2018-09-18 07:09] LABS: Anion Gap 7 (5-15); BUN 28 mg/dL (7-18); BUN/Creat Ratio 27.2 RATIO (10-20); Calcium,Total 9.6 mg/dL (8.5-10.1); Chloride 97 mmol/L (98-107); Creatinine, Serum 1.03 mg/dL (0.55-1.02); EST Glomerular Filtration Rate 56 mL/min (>60); Est Glom Filt Rate - Afr Amer 68 mL/min (>60); Estimated Creatinine Clearance 37.26 ml/min; Glucose 174 mg/dL (74-106); Potassium 4.1 mmol/L (3.5-5.1); Sodium Level 139 mmol/L (136-145)
[2018-09-18] MEDS: Enoxaparin 40 MG/0.4 ML Syringe SC (08:42)
[2018-09-18] MEDS: Metoprolol(XL)Succ 50 MG Tablet PO (08:43)
[2018-09-18] MEDS: Metolazone 2.5 MG Tablet PO (08:43)
[2018-09-18] MEDS: busPIRone 5 MG Tablet PO (08:44)
[2018-09-18] MEDS: Acetaminophen 500 MG Tablet 1000 MG PO (08:44)
[2018-09-18] MEDS: guaiFENesin 600 MG Tablet PO (08:44)
[2018-09-18] MEDS: Azithromycin 250 MG Tablet PO (08:44)
[2018-09-18] MEDS: Lisinopril 40 MG Tablet PO (08:44)
[2018-09-18] MEDS: Multivitamins,Therapeutic Tablet 1 TABLET PO (08:44)
[2018-09-18] MEDS: Spironolactone 25 MG Tablet PO (08:44)
[2018-09-18] MEDS: Magnesium Oxide 400 MG Tablet PO (08:44)
[2018-09-18] MEDS: Pantoprazole Sodium 40 MG Tablet PO (08:44)
--- NOTE | 2018-09-18 08:47 | PCM.PN.PUL ---
Patient Problems: Active and Suspected Problems (Last Reviewed 09/16/18 @ 00:31 by Feli Dean DO) Dyspnea (Acute) Right-sided heart failure (Acute) Subjective: Patient did well overnight. Patient reporting subjective improvement in respiratory status compared to yesterday. Patient also reporting improved exercise tolerance. No new pains have been reported. Patient remains on nasal cannula oxygen during the day and was compliant with CPAP overnight. - Physical Exam General: Alert, Oriented x3, Cooperative, No apparent distress, Well developed, Well nourished, - - Morbidly obese. No conversational dyspnea. HEENT: Atraumatic, PERRLA, EOMI, Normocephalic, - - No scleral icterus or injection noted. Oral: Moist Mucosa, No Gingival or Mucosal Lesions/ Ulcerations Neck: Supple, No Nodes, Trachea Midline Lungs: No rhonchi, No wheeze, No rales, Diminished, - - Symmetric expansion. No dullness to percussion. Cardiovascular: Regular rate, Regular Rhythm, Normal S1, Normal S2, No murmurs, No rub noted, No Gallop Abdomen: Bowel Sounds Present, Soft, Non Tender, Non-Distended, Obese Extremities: No cyanosis, Capillary Refill Less than 3 Seconds, Edema - Improved Skin: - - No significant change compared to previous Musculoskeletal: No Tenderness to Palpation of Joints or Extremities Lymphatic: No Cervical, Supraclavicular, or Inguinal Adenopathy Neurological: Cranial nerves II-XII grossly intact, Neuro grossly intact, Motor Exam 5/5 strength throughout Psych/Mental Status: Alert and oriented to time, place, person, mood and affect Vital Signs Temp Pulse Resp BP Pulse Ox 36.6 C 73 16 137/65 H 97 09/18/18 08:31 09/18/18 08:31 09/18/18 08:31 09/18/18 08:31 09/18/18 08:31 Oxygen Flow Rate (L/min) 3 Oxygen Delivery Method Nasal Cannula Weight: 108.2 kg Body Mass Index (BMI) 44.9 Finger Stick Blood Glucose 204 Intake and Output for Last 24 Hours 09/16/18 09/17/18 09/18/18 23:59 23:59 23:59 Intake Total 1260 / 1260 780 / 780 Output Total 1650 / 1650 3000 / 3000 Balance -390 / -390 -2220 / -2220 Laboratory Tests Past 24 Hrs 09/18/18 09/18/18 06:30 06:30 WBC 8.8 RBC 4.44 Hgb 12.7 Hct 40.6 MCV 91.4 MCH 28.6 MCHC 31.3 L RDW 14.6 RDW Differential 47.8 H Plt Count 254 MPV 10.4 Immature Gran % (Auto) 0.900 Neut % (Auto) 67.5 Lymph % (Auto) 21.2 [place] % (Auto) 8.0 Eos % (Auto) 1.9 Baso % (Auto) 0.5 Absolute Neuts (auto) 6.0 Absolute Lymphs (auto) 1.87 Total Counted Not Reportable Sodium 139 Potassium 4.1 Chloride 97 L Carbon Dioxide 35.0 H Anion Gap 7 BUN 28 H Creatinine 1.03 H Estim Creat Clear Calc 37.26 Est GFR (MDRD) Af Amer 68 Est GFR (MDRD) Non-Af 56 L BUN/Creatinine Ratio 27.2 H Glucose 174 H Calcium 9.6 POC Glucose 09/18/18 09/17/18 09/17/18 06:37 22:23 16:50 POC Glucose 171 H 206 H 155 H 09/17/18 11:27 POC Glucose 266 H Medical Necessity - Tobacco Use Smoking Status: Former smoker Assessment/Plan All Active Problems (Last Reviewed 09/16/18 @ 00:31 by Feli Dean DO) Dyspnea (Acute) Right-sided heart failure (Acute) Cervicalgia (Resolved) Chest pain (Resolved) Diarrhea (Resolved) Gastroenteritis (Resolved) H/O hemorrhoidectomy (Resolved) History of tonsillectomy (Resolved) Hyperglycemia (Resolved) Hypokalemia (Resolved) Recent urinary tract infection (Resolved) S/P wrist surgery (Resolved) RECOMMENDATIONS: 1. Increase activity as tolerated 2. Agree with active diuresis, continue metolazone 3. Replete potassium as necessary 4. Wean oxygen as tolerated, continuous pulse ox advisable 5. Continue home BiPAP therapy IMPRESSIONS: 1. Acute on chronic cor pulmonale/Sjogren's disease Likely multifactorial. Patient was found to be hypoxic on presentation. Patient does appear to be fluid overloaded at this time. Patient has increased left lower extremity edema, so DVT/PE would be a consideration. Patient with excellent response to the addition of metolazone. Likely continue this for another 24 hours, but may need to do intermittent dosing to avoid renal dysfunction. Sjogren's disease has been associated with connective tissue associated pulmonary hypertension. 2. Reported COPD with chronic respiratory failure 2 to 3 L nasal cannula at baseline Patient does not appear to be in a COPD exacerbation at this time. Patient does not report a prodromal fever, change in sputum or chest pain. Unknown baseline at this time. Will obtain old records. Patient does carry a history of non-Hodgkin's lymphoma, so may have an element of radiation toxicity to the chest. 3. Probable congestive heart failure, suspect diastolic/hypertension/hyperlipidemia Patient with morbid obesity, hypertension and hyperlipidemia. Clinical suspicion for an element of diastolic congestive heart failure. Patient is currently on diuretic therapy. Will obtain an echocardiogram from [facility]. Patient does have an aortic stenosis murmur, but severity is unclear at this time. 4. History of non-Hodgkin's lymphoma/anxiety/depression/hypothyroidism/SCOTTY Complicates care, management, recovery and prognosis. Okay to resume home therapies at this time. Patient would likely benefit from a repeat titration as an outpatient if agreeable. Patient is currently seen by the [facility]. Code Visit Inpatient E&M: 08197 Subs Hosp L2
[2018-09-18] MEDS: Albuterol 2.5 MG/3 ML VIAL.NEB. INHALATION (09:48)
[2018-09-18] MEDS: Insulin Lispro 100 UNIT/ML INSULN.PEN 8 UNIT SC ×2 (10:32→12:46)
[2018-09-18] MEDS: Menthol/Lanolin/Calamine/Znox 113 GM Tube 1 APPLIC TOPICAL ×2 (10:33→15:42)
--- NOTE | 2018-09-18 11:20 | PCM.EXTCARCO ---
- Diet 09/15/18 21:48 Diet: Cardiac: Calorie-Controlled Food consistency:: Regular Liquid Consistency:: Regular/Thin How many daily calories?: 1600 calorie Diet: Fluid Restriction Food consistency:: Regular Liquid Consistency:: Regular/Thin Fluid restriction:: 1500 mL - Routine Orders/Code Status Suppository Type: Dulcolax 10mg Suppository Frequency: Daily PRN O2 Frequency: Continuous Keep PO Greater than or Equal to (%): 89 Routine Lab Work: CBC - 1 week, BMP - 3 days Code Status: Full Code - Therapies Physical Therapy: Eval and Treat Occupational Therapy: Eval and Treat - Problem/Diagnosis (1) Right-sided heart failure Status: Acute Current Visit: Yes (2) Pulmonary HTN Status: Chronic Current Visit: Yes (3) Morbid obesity Status: Chronic Current Visit: No (4) Chronic obstructive pulmonary disease Status: Chronic Current Visit: No (5) IBS (irritable bowel syndrome) Status: Chronic Current Visit: No (6) Degeneration of intervertebral disc of lumbosacral region Status: Chronic Current Visit: No (7) Radiculopathy of lumbosacral region Status: Chronic Current Visit: No (8) Spinal stenosis of lumbosacral region Status: Chronic Current Visit: No (9) Primary osteoarthritis of right hip Status: Chronic Current Visit: No (10) Spondylosis of lumbosacral region without myelopathy or radiculopathy Status: Chronic Current Visit: No (11) Nonrheumatic aortic valve stenosis Status: Chronic Current Visit: No (12) Nonrheumatic mitral valve insufficiency Status: Chronic Current Visit: No (13) Anxiety Status: Chronic Current Visit: No (14) Depression Status: Chronic Current Visit: No (15) Hypertension Status: Chronic Current Visit: No (16) Hyperlipidemia Status: Chronic Current Visit: No (17) Chronic respiratory failure Status: Chronic Comment: copd 3 liters continuous Current Visit: No (18) Hypothyroidism Status: Chronic Current Visit: No (19) GERD (gastroesophageal reflux disease) Status: Chronic Current Visit: No (20) Diabetes mellitus, type II Status: Chronic Current Visit: No (21) Benign essential HTN Status: Chronic Current Visit: No (22) Sleep apnea Status: Chronic Current Visit: No (23) Sjogren's syndrome Status: Chronic Current Visit: No (24) Mild aortic stenosis Status: Chronic Current Visit: No - Allergies/Procedures Done in Hospital Allergies/Adverse Reactions: Allergies adhesive Allergy (Verified 09/15/18 15:46) Itching adhesive tape Allergy (Verified 09/15/18 15:46) Rash amoxicillin trihydrate [From Augmentin] Allergy (Verified 09/15/18 15:46) Hives Iodinated Contrast- Oral and IV Dye Allergy (Verified 09/15/18 15:46) Shortness of breath latex Allergy (Verified 09/15/18 15:46) Rash Latex, Natural Rubber Allergy (Verified 09/15/18 15:46) Rash metronidazole [From Flagyl] Allergy (Verified 09/15/18 15:46) Hives Metronidazole HCl [From Flagyl] Allergy (Verified 09/15/18 15:46) Hives Penicillins [PCN] Allergy (Verified 09/15/18 15:46) Hives potassium clavulanate [From Augmentin] Allergy (Verified 09/15/18 15:46) Hives sulfamethoxazole [From Bactrim] Allergy (Verified 09/15/18 15:46) Hives hives trimethoprim [From Bactrim] Allergy (Verified 09/15/18 15:46) Hives hives diphenhydramine HCl [From Benadryl] Adverse Reaction (Verified 09/15/18 15:46) i could crawl to the ceiling i could crawl the ceiling omeprazole Adverse Reaction (Verified 09/15/18 15:46) Nausea promethazine HCl [From Phenergan] Adverse Reaction (Verified 09/15/18 15:46) Nausea antihistamine Allergy (Uncoded 09/15/18 15:46) i could crawl to the ceiling crawl the ceiling Procedures: None - Type of Care/Length of Stay Estimated LOS: Convalescent Care Less Than 30 days Type of Care Needed: Skilled Rehab Potential: Fair Prognosis: Fair - Additional Orders/Day of Discharge Additional Orders: Continue Bipap QHS. Retitrate victoza. Consider resumption of metformin if renal function remains stable, otherwise titrate insulin therapy. Measure daily weights. Day of Discharge: 09/18/18 - Dietary and Speech Recommendations Dietitian Recommendations/Changes: Recommend continue 1600 calorie controlled; cardiac diet with 1500ml FR. Will d/c glucerna shake 60ml PO 4x day--BMI 46.2. - Follow Up Care Primary Care Physician: Zabrina Bain MD [Primary Care Provider] - Please follow up with your Primary Care Physician in: 2 weeks Please Follow Up With: Rios Mayfield MD When: 2 weeks
--- NOTE | 2018-09-18 12:55 | CASEMGMT ---
SONI spoke with patient and let her know that she was approved to go to TCU and as long as she is still agreeable she will go today. She was agreeable and thanked SONI. SONI called and left a for Caitie Albarran her Passport CM letting her know about d/c. RN also notified of d/c to TCU today. Plan: [facility] TCU under skilled level of care. Tracy CADET MSW
--- NOTE | 2018-09-18 14:14 | CASEMGMT ---
SONI called [facility] and notified them patient was being discharged to TCU today. SW will pass along their information to be used if patient needs HH at d/c from TCU. SONI also called SONI Martin in TCU and let her know above as well as patient's efforts to obtain an air conditioner from [employer]. Tracy CADET MSW
--- NOTE | 2018-09-18 14:23 | DS.PCM_ITS ---
<Angel Emerson - Last Filed: 09/18/18 14:23> Discharge Date and Diagnosis Date of Admission: 09/15/18 - Primary Discharge Diagnosis Active and Suspected Problems (Last Reviewed 09/16/18 @ 00:31 by Feli Dean DO) Acute cor pulmonale COPD with chronic hypoxic respiratory failure HTN Hypothyroidism Anxiety and depression Aortic valve stenosis/mitral valve insufficiency Morbid obesity SCOTTY on Bipap T2DM Hx NHL - Secondary Discharge Diagnosis Chronic Problems (Last Reviewed 09/16/18 @ 00:31 by Feli Dean DO) Pulmonary HTN (Chronic) Morbid obesity (Chronic) Chronic obstructive pulmonary disease (Chronic) IBS (irritable bowel syndrome) (Chronic) Degeneration of intervertebral disc of lumbosacral region (Chronic) Radiculopathy of lumbosacral region (Chronic) Spinal stenosis of lumbosacral region (Chronic) Primary osteoarthritis of right hip (Chronic) Spondylosis of lumbosacral region without myelopathy or radiculopathy (Chronic) Nonrheumatic aortic valve stenosis (Chronic) Nonrheumatic mitral valve insufficiency (Chronic) Heart failure (Chronic) Non Hodgkin's lymphoma (Chronic) Anxiety (Chronic) Depression (Chronic) Hypertension (Chronic) Hyperlipidemia (Chronic) Chronic respiratory failure (Chronic) copd 3 liters continuous Hypothyroidism (Chronic) GERD (gastroesophageal reflux disease) (Chronic) Diabetes mellitus, type II (Chronic) Benign essential HTN (Chronic) Sleep apnea (Chronic) Fatty liver disease, nonalcoholic (Chronic) Sjogren's syndrome (Chronic) Diverticulosis (Chronic) Mild aortic stenosis (Chronic) Hospital Course and Treatment Imaging Results: CT/Abdomen/Pel W ORAL Cont Only IMPRESSION: No acute abdominal or pelvic pathology. Right anterior abdominal wall region of encapsulated fat with scarring stable in appearance. Hepatic cirrhosis. Colonic diverticulosis. Left adrenal gland 2.2 cm adenoma. RAD/Chest PA and Lateral IMPRESSION: Congestion with features described above. Consults: [facility] - pulmonology Operations: None Procedures: None Summary of Care Provided: Hospital Course: The patient is a 73 year old F past medical history of diastolic congestive heart failure, pulmonary hypertension, COPD with chronic hypoxic respiratory failure, obstructive sleep apnea on BiPAP, history of non-Hodgkin's lymphoma, anxiety and depression, hypertension, hyperlipidemia, hypothyroidism, morbid obesity, type 2 diabetes, who presented to the emergency room with complaints of increased shortness of breath and lower extremity edema. She had no fevers or chills, no cough. She also had no fever or leukocytosis. In the ER she had no evidence of pneumonia. She appeared to have increased lower extremity edema, elevated BNP, and was felt to be in congestive heart failure exacerbation. She was admitted to the PCU on telemetry and placed on intravenous Lasix. She did not have significant diuresis with IV Lasix initially. Metolazone was added later after which she had good improvement in her output and and her symptoms including shortness of breath and edema. Pulmonology was consulted and agreed with the above plan. Suggested dosing metolazone every other day. Patient was weaned to her home dose of oxygen which is 2 to 3 L/min. She continued to have ongoing debility and did poorly with PT OT. [facility] was recommended she was agreeable. She was [facility] in [facility] condition. She will need follow-up BMP to monitor how her diuretics are working, she needs daily weights checked as well. She will need to follow-up with her PCP in 1 to 2 weeks, and follow-up with her rug setter [place] in 2 weeks. This patient was seen by Angel Emerson PA-C under the supervision of Doctor Chasity. [] - Physical Exam General: Alert, Oriented x3, Cooperative HEENT: Atraumatic, PERRLA, EOMI, Normocephalic Neck: Supple, No JVD, Negative Carotid Bruits Lungs: Clear to auscultation, Normal air movement Cardiovascular: Regular rate, No murmurs Abdomen: Bowel Sounds Present, Soft, Non Tender Extremities: No edema, Capillary Refill Less than 3 Seconds Skin: No rashes, No breakdown Musculoskeletal: No Tenderness to Palpation of Joints or Extremities Neurological: Cranial nerves II-XII grossly intact Psych/Mental Status: Normal Affect, Appropriate, Alert and oriented to time, place, person, mood and affect Vital Signs Temp Pulse Resp BP Pulse Ox 97.9 F 74 14 137/65 H 94 09/18/18 08:31 09/18/18 10:00 09/18/18 10:00 09/18/18 08:43 09/18/18 10:01 Oxygen Flow Rate (L/min) 3 Oxygen Delivery Method Nasal Cannula Weight: 238 lb 8.642 oz Body Mass Index (BMI) 44.9 Finger Stick Blood Glucose 204 Intake and Output for Last 24 Hours 09/16/18 09/17/18 09/18/18 23:59 23:59 23:59 Intake Total 1260 / 1260 780 / 780 Output Total 1650 / 1650 3000 / 3000 Balance -390 / -390 -2220 / -2220 Laboratory Tests Past 24 Hrs 09/18/18 09/18/18 06:30 06:30 WBC 8.8 RBC 4.44 Hgb 12.7 Hct 40.6 MCV 91.4 MCH 28.6 MCHC 31.3 L RDW 14.6 RDW Differential 47.8 H Plt Count 254 MPV 10.4 Immature Gran % (Auto) 0.900 Neut % (Auto) 67.5 Lymph % (Auto) 21.2 [place] % (Auto) 8.0 Eos % (Auto) 1.9 Baso % (Auto) 0.5 Absolute Neuts (auto) 6.0 Absolute Lymphs (auto) 1.87 Total Counted Not Reportable Sodium 139 Potassium 4.1 Chloride 97 L Carbon Dioxide 35.0 H Anion Gap 7 BUN 28 H Creatinine 1.03 H Estim Creat Clear Calc 37.26 Est GFR (MDRD) Af Amer 68 Est GFR (MDRD) Non-Af 56 L BUN/Creatinine Ratio 27.2 H Glucose 174 H Calcium 9.6 POC Glucose 09/18/18 09/17/18 09/17/18 06:37 22:23 16:50 POC Glucose 171 H 206 H 155 H Discharge Diet: Low fat/ Low Cholesterol, 2000 mg Sodium Diet Discharge Activity: Return to Normal Activity Home Medications: Medications to take at Discharge Albuterol Inhaler [Ventolin Hfa] 2 puff INHALATION Q6H PRN PRN 06/29/14 Levothyroxine [Synthroid] 25 mcg PO DAILY 06/29/14 Montelukast [Singulair] 10 mg PO QHS 06/29/14 Pantoprazole Sodium [Protonix] 40 mg PO BID 06/29/14 Sertraline HCl [Zoloft] 200 mg PO QHS 06/29/14 Albuterol Aerosols [Ventolin Aerosols] 2.5 mg INHALATION Q4H PRN PRN 08/20/14 Insulin Detemir [Levemir FlexPen] 15 units SUBCUT BID 01/26/15 Atorvastatin Calcium [Lipitor] 40 mg PO DAILY 09/18/15 Fluticasone 0.05% [Flonase Nasal [place]] 2 spray NASAL QHS 09/18/15 Pregabalin [Lyrica] 50 mg PO TID 09/18/15 traZODone [Desyrel] 150 mg PO QHS 11/26/16 Loperamide [Imodium] 2 mg PO BID PRN PRN 12/03/16 Acetaminophen [Tylenol] 1,000 mg PO BID 10/11/17 Lisinopril [Zestril] 40 mg PO DAILY 10/11/17 Multivitamin [Multiple Vitamins] 1 tab PO DAILY 10/11/17 Insulin Lispro [Humalog KwikPen] 8 unit SQ BREAKFAST 11/18/17 Insulin Lispro [Humalog KwikPen] 12 unit SQ DINNER 11/18/17 Magnesium Oxide [Magnesium] 400 mg PO DAILY 11/18/17 Spironolactone [Aldactone] 25 mg PO BID 03/13/18 Nystatin Powder [Mycostatin Powder] 1 applic TOPICAL 4X/DAY PRN 03/31/18 Ondansetron [Zofran Odt] 4 mg PO Q8H PRN PRN #10 tab 07/07/18 busPIRone [Buspar] 15 mg PO BID 07/29/18 Oxybutynin [Ditropan] 5 mg PO TID 09/12/18 Potassium Chloride [K-Dur] 40 meq PO BID #60 tab 09/13/18 Fluticasone/Umeclidin/Vilanter [Trelegy Ellipta 100-62.5-25] 1 puff INHALATION DAILY 09/15/18 Furosemide 80 mg PO BID 09/15/18 Metoprolol Succinate 50 mg PO BID 09/15/18 Insulin Lispro [Humalog KwikPen] 9 units SQ LUNCH #0 09/18/18 Liraglutide [Victoza 2-Yan] 1.8 mg SQ DAILY #0 09/18/18 Menthol/Lanolin/Calamine/Znox [Calmoseptine Ointment] 1 applic TOPICAL 4X/DAY tube 09/18/18 Metolazone [Zaroxolyn] 2.5 mg PO QODAY #15 tab 09/18/18 Primary Care Physician: Zabrina Bain MD [Primary Care Provider] - Please follow up with your Primary Care Physician in: 2 weeks Please Follow Up With: Rios Mayfield MD When: 2 weeks Disposition: [facility] facility Minutes spent on discharge:: 35 Patient Condition:: Stable Medical Necessity - Tobacco Use Smoking Status: Former smoker Meaningful Use Info Meaningful Use Diagnoses (Choose all that apply): None applicable <Lubna Gaspar - Last Filed: 09/18/18 16:47> Discharge Date and Diagnosis - Secondary Discharge Diagnosis Chronic Problems (Last Reviewed 09/16/18 @ 00:31 by Feli Dean DO) Pulmonary HTN (Chronic) Morbid obesity (Chronic) Chronic obstructive pulmonary disease (Chronic) IBS (irritable bowel syndrome) (Chronic) Degeneration of intervertebral disc of lumbosacral region (Chronic) Radiculopathy of lumbosacral region (Chronic) Spinal stenosis of lumbosacral region (Chronic) Primary osteoarthritis of right hip (Chronic) Spondylosis of lumbosacral region without myelopathy or radiculopathy (Chronic) Nonrheumatic aortic valve stenosis (Chronic) Nonrheumatic mitral valve insufficiency (Chronic) Heart failure (Chronic) Non Hodgkin's lymphoma (Chronic) Anxiety (Chronic) Depression (Chronic) Hypertension (Chronic) Hyperlipidemia (Chronic) Chronic respiratory failure (Chronic) copd 3 liters continuous Hypothyroidism (Chronic) GERD (gastroesophageal reflux disease) (Chronic) Diabetes mellitus, type II (Chronic) Benign essential HTN (Chronic) Sleep apnea (Chronic) Fatty liver disease, nonalcoholic (Chronic) Sjogren's syndrome (Chronic) Diverticulosis (Chronic) Mild aortic stenosis (Chronic) Hospital Course and Treatment Summary of Care Provided: Patient seen by Angel Emerson PA-C under my supervision The patient is a 73 year old F with a PMH as listed. She was admitted with a complaint of shortness of breath and LE edema. Of note, patient had been admitted and discharged a few days prior to this admission for gastroenteritis. She was discharged home but started feeling short of breath with distal lower extremity edema so she came into the hospital. She did not have any assistive chest pain or palpitations or dizziness. Patient also stated that she had no eye condition at home and this helped to worsen her shortness of breath. She was admitted and managed for acute on chronic heart failure with preserved ejection fraction. She was started on IV Lasix 40 mg every 8 hours. She still complained of lower extremity edema and so eventually metolazone 2.5 mg daily was added on. Diuresis improved with metolazone. She remained on her baseline 2 to 3 L of oxygen at home. Patient however remained debilitated and could not mobilize herself to get out of bed and move around. [facility] care was recommended by physical therapy. Patient was [facility] to a prison [facility] on 09/18/2018. She was discharged with a prescription for p.o. Lasix and also metolazone to take it every other day. She was also on CPAP nightly. Of note, pulmonology was consulted during this admission. She is to follow-up with her primary care doctor in 1 to 2 weeks and also with pulmonology in 2 weeks. Seen and examined prior to discharge. Shortness of breath had improved. She was still on her baseline 2 to 3 L of oxygen. Review of systems is otherwise negative. Labs and vitals reviewed. Home medication reviewed and reconciled. o/e: Vital Signs Height 5 ft 1 in Weight: 238 lb 8.642 oz Weight in Pounds 238.5 lbs Pulse Ox 94 Temperature 98.3 F Pulse Rate 68 Respiratory Rate 18 Blood Pressure [BP] 129/62 Blood Pressure 125/59 Blood Pressure Position [BP] Semi-Fowlers Blood Pressure Position Sitting [] General: Alert, Oriented x3, Cooperative, No apparent distress HEENT: Atraumatic, PERRLA, EOMI, Normocephalic Oral: Moist Mucosa Neck: Supple, No JVD, Negative Carotid Bruits Lungs: - - mildly diminished breath sounds bibasally, on 3L of oxygen Cardiovascular: Regular rate, Regular Rhythm, Normal S1, Normal S2, No murmurs Abdomen: Bowel Sounds Present, Soft, Non Tender, No Hepato-splenomegaly, Obese Extremities: No clubbing, No cyanosis, Capillary Refill Less than 3 Seconds, - - mild 1+ bilateral LE pitting pedal edema Skin: No rashes, No breakdown Musculoskeletal: No Tenderness to Palpation of Joints or Extremities Lymphatic: No Cervical, Supraclavicular, or Inguinal Adenopathy Neurological: Cranial nerves II-XII grossly intact, Neuro grossly intact, Motor Exam 5/5 strength throughout Psych/Mental Status: Normal Affect, Appropriate, Alert and oriented to time, place, person, mood and affect Plan as above. I have reviewed the above note by Angel Emerson PA-C and endorse it. - Physical Exam Vital Signs Temp Pulse Resp BP Pulse Ox 98.3 F 68 18 125/59 H 94 09/18/18 15:36 09/18/18 15:36 09/18/18 15:36 09/18/18 15:36 09/18/18 15:36 Oxygen Flow Rate (L/min) 3 Oxygen Delivery Method Nasal Cannula Weight: 238 lb 8.642 oz Body Mass Index (BMI) 44.9 Finger Stick Blood Glucose 204 Intake and Output for Last 24 Hours 09/16/18 09/17/18 09/18/18 23:59 23:59 23:59 Intake Total 1260 / 1260 780 / 780 Output Total 1650 / 1650 3000 / 3000 Balance -390 / -390 -2220 / -2220 Laboratory Tests Past 24 Hrs 09/18/18 09/18/18 06:30 06:30 WBC 8.8 RBC 4.44 Hgb 12.7 Hct 40.6 MCV 91.4 MCH 28.6 MCHC 31.3 L RDW 14.6 RDW Differential 47.8 H Plt Count 254 MPV 10.4 Immature Gran % (Auto) 0.900 Neut % (Auto) 67.5 Lymph % (Auto) 21.2 [place] % (Auto) 8.0 Eos % (Auto) 1.9 Baso % (Auto) 0.5 Absolute Neuts (auto) 6.0 Absolute Lymphs (auto) 1.87 Total Counted Not Reportable Sodium 139 Potassium 4.1 Chloride 97 L Carbon Dioxide 35.0 H Anion Gap 7 BUN 28 H Creatinine 1.03 H Estim Creat Clear Calc 37.26 Est GFR (MDRD) Af Amer 68 Est GFR (MDRD) Non-Af 56 L BUN/Creatinine Ratio 27.2 H Glucose 174 H Calcium 9.6 POC Glucose 09/18/18 09/18/18 09/17/18 12:43 06:37 22:23 POC Glucose 225 H 171 H 206 H 09/17/18 16:50 POC Glucose 155 H Meaningful Use Info Meaningful Use Diagnoses (Choose all that apply): CHF - CHF LIZ/ARB ordered at discharge?: Yes Documented LVEF (%): 60 Code Visit Inpatient E&M: 76796 Disch Hosp
--- NOTE | 2018-09-18 15:40 | NURSING ---
Report given to TCU RN.
[2018-09-18 16:06] LABS: Bedside Glucose 225 mg/dL (70-110)
== END 2018-09-18 16:13 | disposition skilled nursing facility (03) | DRG 292 ==
LOC: ED 16:26 → PCU 21:15
PROVIDERS: Admitting Provider Internal Medicine; Emergency Provider Emergency Medicine; Family Provider Internal Medicine; PCP Internal Medicine; Referring Provider Internal Medicine; Visit Provider Student in an Organized Health Care Education/Training Program
DX: I11.0 Hypertensive heart disease with heart failure (principal); J96.11 Chronic respiratory failure with hypoxia; C85.90 Non-Hodgkin lymphoma, unspecified, unspecified site; Z68.41 Body mass index [BMI] 40.0-44.9, adult; E78.5 Hyperlipidemia, unspecified; I50.33 Acute on chronic diastolic (congestive) heart failure; G47.33 Obstructive sleep apnea (adult) (pediatric); Z99.81 Dependence on supplemental oxygen; J44.9 Chronic obstructive pulmonary disease, unspecified; F32.9 Major depressive disorder, single episode, unspecified; F41.9 Anxiety disorder, unspecified; E03.9 Hypothyroidism, unspecified; E66.01 Morbid (severe) obesity due to excess calories; I35.0 Nonrheumatic aortic (valve) stenosis; I34.0 Nonrheumatic mitral (valve) insufficiency; M35.00 Sjogren syndrome, unspecified; I27.81 Cor pulmonale (chronic); Z87.891 Personal history of nicotine dependence; M51.17 Intervertebral disc disorders with radiculopathy, lumbosacral region; M48.07 Spinal stenosis, lumbosacral region; K76.0 Fatty (change of) liver, not elsewhere classified; E11.9 Type 2 diabetes mellitus without complications; Z79.4 Long term (current) use of insulin
CPT/HCPCS: 36591; 71046; 74176; 80048; 80053; 80061; 81001; 82962; 83735; 83880; 84100; 84484; 85025; 93005; 94640; 97110; 97116; 97162; 97166; 97530; 97535; 97802; 99285; P9612; A4216; J1940; J2405

== ENCOUNTER 2018-09-18 16:29 | Inpatient (IN) | payer MEDICARE, SELFPAY ==
[2018-09-18 16:33] VITALS: BP 131/58; PULSE 78; RESP 17; TEMP 36.5; O2SAT 90
--- NOTE | 2018-09-18 16:42 | NURSING ---
Patient admitted to room 20 from PCU via wheelchair, oriented to room and call light system explained.
[2018-09-18 16:56] VITALS: BMI 43.2
[2018-09-18 17:10] VITALS: BMI 103.9
[2018-09-18 17:20] LABS: Bedside Glucose 202 mg/dL (70-110)
[2018-09-18] MEDS: Menthol/Lanolin/Calamine/Znox 113 GM Tube 1 APPLIC TOPICAL ×2 (18:49→21:44)
[2018-09-18] MEDS: Furosemide 40 MG Tablet 80 MG PO (18:49)
[2018-09-18] MEDS: Insulin Lispro 100 UNIT/ML INSULN.PEN 12 UNIT SC (18:49)
[2018-09-18 18:50] VITALS: BP 131/58; PULSE 78
[2018-09-18] MEDS: Pantoprazole Sodium 40 MG Tablet PO (18:50)
[2018-09-18] MEDS: Spironolactone 25 MG Tablet PO (18:50)
[2018-09-18] MEDS: Acetaminophen 500 MG Tablet 1000 MG PO (18:50)
[2018-09-18] MEDS: Metoprolol(XL)Succ 50 MG Tablet PO (18:50)
[2018-09-18] MEDS: busPIRone 15 MG TABLET PO (19:53)
[2018-09-18] MEDS: Fluticasone 0.05% 1 SPRAY NASAL.SRY 2 SPRAY NASAL (21:32)
[2018-09-18] MEDS: Sertraline 100 MG Tablet 200 MG PO (21:33)
[2018-09-18] MEDS: Montelukast 10 MG Tablet PO (21:33)
[2018-09-18] MEDS: Atorvastatin Calcium 40 MG Tablet PO (21:33)
[2018-09-18] MEDS: Oxybutynin 5 MG Tablet PO (21:34)
[2018-09-18] MEDS: traZODone 100 MG Tablet 150 MG PO (21:35)
[2018-09-18] MEDS: Pregabalin 50 MG Capsule PO (21:44)
[2018-09-18 21:51] LABS: Bedside Glucose 212 mg/dL (70-110)
--- NOTE | 2018-09-18 22:03 | HP.PCM_ITS ---
Problem List (1) Lumbar spinal stenosis Status: Chronic (2) Obstructive sleep apnea Status: Chronic (3) Right-sided heart failure Status: Acute Qualifiers: (4) Pulmonary HTN Status: Chronic (5) Chronic obstructive pulmonary disease Status: Chronic (6) IBS (irritable bowel syndrome) Status: Chronic Qualifiers: (7) Primary osteoarthritis of right hip Status: Chronic (8) Non Hodgkin's lymphoma Status: Chronic Qualifiers: (9) Hypertension Status: Chronic Qualifiers: (10) Hyperlipidemia Status: Chronic Qualifiers: (11) Hypothyroidism Status: Chronic Qualifiers: (12) GERD (gastroesophageal reflux disease) Status: Chronic Qualifiers: (13) Diabetes mellitus, type II Status: Chronic (14) Fatty liver disease, nonalcoholic Status: Chronic (15) Sjogren's syndrome Status: Chronic Qualifiers: History of Present Illness Date of Admission: 09/18/18 Chief Complaint: Here for rehabilitation, strengthening, prior to discharge home alone. The patient is a 73 year old Female with below past medical history presented to [facility] Emergency Department 09/15/2018 with generalized illness. 09/15/2018 CT abdomen/pelvis showed hepatic cirrhosis, colonic diverticulosis, left adrenal adenoma. 09/15/2018 EKG normal sinus rhythm, normal EKG. 09/15/2018 Chest X-ray shows congestion. Lasix held recently. Patient had increasing dyspnea, orthopnea, weight gain, bilateral lower extremity edema. Oxygen increased from 2 Liters NC to 5 Liters NC. Screening labs okay, Cardiac enzymes okay. BNP elevated. IV Lasix given. 09/15/2018 Admit to Hospital. Lasix 40MG IV Q12H for heart failure. Metolazone added to aid diuresis. Dr. Mayfield to help with sleep apnea management. 09/18/2018 Admit to TCU with debility, here for rehabilitation, strengthening, prior to discharge home alone. Past Medical History Past Medical History (Chronic Problems): Chronic Problems (Last Reviewed 09/16/18 @ 00:31 by Feli Dean DO) Pulmonary HTN (Chronic) Lumbar spinal stenosis (Chronic) Obstructive sleep apnea (Chronic) Morbid obesity (Chronic) Chronic obstructive pulmonary disease (Chronic) IBS (irritable bowel syndrome) (Chronic) Degeneration of intervertebral disc of lumbosacral region (Chronic) Radiculopathy of lumbosacral region (Chronic) Spinal stenosis of lumbosacral region (Chronic) Primary osteoarthritis of right hip (Chronic) Spondylosis of lumbosacral region without myelopathy or radiculopathy (Chronic) Nonrheumatic aortic valve stenosis (Chronic) Nonrheumatic mitral valve insufficiency (Chronic) Heart failure (Chronic) Non Hodgkin's lymphoma (Chronic) Anxiety (Chronic) Depression (Chronic) Hypertension (Chronic) Hyperlipidemia (Chronic) Chronic respiratory failure (Chronic) copd 3 liters continuous Hypothyroidism (Chronic) GERD (gastroesophageal reflux disease) (Chronic) Diabetes mellitus, type II (Chronic) Benign essential HTN (Chronic) Sleep apnea (Chronic) Fatty liver disease, nonalcoholic (Chronic) Sjogren's syndrome (Chronic) Diverticulosis (Chronic) Mild aortic stenosis (Chronic) Medical History: Medical History (Last Reviewed 09/16/18 @ 00:31 by Feli Dean DO) Nonrheumatic aortic valve stenosis (Chronic) I35.0 Nonrheumatic mitral valve insufficiency (Chronic) I34.0 Heart failure (Chronic) I50.9 Hypertension (Chronic) I10 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 Breast pain, left N64.4 CHF (congestive heart failure) I50.9 Chronic obstructive pulmonary disease J44.9 Dyspnea on exertion R06.09 Neck pain M54.2 SCOTTY (obstructive sleep apnea) G47.33 Pseudomonas aeruginosa infection A49.8 Allergies adhesive Allergy (Verified 09/15/18 15:46) Itching adhesive tape Allergy (Verified 09/15/18 15:46) Rash amoxicillin trihydrate [From Augmentin] Allergy (Verified 09/15/18 15:46) Hives Iodinated Contrast- Oral and IV Dye Allergy (Verified 09/15/18 15:46) Shortness of breath latex Allergy (Verified 09/15/18 15:46) Rash Latex, Natural Rubber Allergy (Verified 09/15/18 15:46) Rash metronidazole [From Flagyl] Allergy (Verified 09/15/18 15:46) Hives Metronidazole HCl [From Flagyl] Allergy (Verified 09/15/18 15:46) Hives Penicillins [PCN] Allergy (Verified 09/15/18 15:46) Hives potassium clavulanate [From Augmentin] Allergy (Verified 09/15/18 15:46) Hives sulfamethoxazole [From Bactrim] Allergy (Verified 09/15/18 15:46) Hives hives trimethoprim [From Bactrim] Allergy (Verified 09/15/18 15:46) Hives hives diphenhydramine HCl [From Benadryl] Adverse Reaction (Verified 09/15/18 15:46) i could crawl to the ceiling i could crawl the ceiling omeprazole Adverse Reaction (Verified 09/15/18 15:46) Nausea promethazine HCl [From Phenergan] Adverse Reaction (Verified 09/15/18 15:46) Nausea antihistamine Allergy (Uncoded 09/15/18 15:46) i could crawl to the ceiling crawl the ceiling Home Medications: Ambulatory Orders Medication Instructions Recorded Albuterol Inhaler [Ventolin Hfa] 2 puff INHALATION Q6H PRN PRN 06/29/14 Levothyroxine [Synthroid] 25 mcg PO DAILY 06/29/14 Montelukast [Singulair] 10 mg PO QHS 06/29/14 Pantoprazole Sodium [Protonix] 40 mg PO BID 06/29/14 Sertraline HCl [Zoloft] 200 mg PO QHS 06/29/14 Albuterol Aerosols [Ventolin 2.5 mg INHALATION Q4H PRN PRN 08/20/14 Aerosols] Insulin Detemir [Levemir FlexPen] 15 units SUBCUT BID 01/26/15 Atorvastatin Calcium [Lipitor] 40 mg PO DAILY 09/18/15 Fluticasone 0.05% [Flonase Nasal 2 spray NASAL QHS 09/18/15 [place]] Pregabalin [Lyrica] 50 mg PO TID 09/18/15 traZODone [Desyrel] 150 mg PO QHS 11/26/16 Loperamide [Imodium] 2 mg PO BID PRN PRN 12/03/16 Acetaminophen [Tylenol] 1,000 mg PO BID 10/11/17 Lisinopril [Zestril] 40 mg PO DAILY 10/11/17 Multivitamin [Multiple Vitamins] 1 tab PO DAILY 10/11/17 Insulin Lispro [Humalog KwikPen] 8 unit SQ BREAKFAST 11/18/17 Insulin Lispro [Humalog KwikPen] 12 unit SQ DINNER 11/18/17 Magnesium Oxide [Magnesium] 400 mg PO DAILY 09/10/18 Spironolactone [Aldactone] 25 mg PO BID 03/13/18 Nystatin Powder [Mycostatin Powder] 1 applic TOPICAL 4X/DAY PRN 03/31/18 Ondansetron [Zofran Odt] 4 mg PO Q8H PRN PRN #10 tab 07/07/18 busPIRone [Buspar] 15 mg PO BID 07/29/18 Oxybutynin [Ditropan] 5 mg PO TID 09/12/18 Fluticasone/Umeclidin/Vilanter 1 puff INHALATION DAILY 09/15/18 [Trelegy Ellipta 100-62.5-25] Furosemide 80 mg PO BID 09/15/18 Metoprolol Succinate 50 mg PO BID 09/15/18 Insulin Lispro [Humalog KwikPen] 9 units SQ LUNCH 09/18/18 Liraglutide [Victoza 2-Yan] 1.8 mg SQ DAILY #0 09/18/18 Menthol/Lanolin/Calamine/Znox 1 applic TOPICAL 4X/DAY 09/18/18 [Calmoseptine Ointment] Metolazone [Zaroxolyn] 2.5 mg PO QODAY 09/18/18 Potassium Chloride [K-Dur] 40 meq PO BID 09/18/18 Surgical History: Surgical History (Last Reviewed 09/16/18 @ 00:31 by Feli Dean DO) H/O hemorrhoidectomy (Resolved) Z98.890 History of tonsillectomy (Resolved) Z90.89 S/P wrist surgery (Resolved) Z98.890 right Surgical History: adenoidectomy, tonsillectomy, - - Right breast hematoma removal, Left breast lumps removal, Right chest port, R Wrist surery, hemorrhoidectomy. 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 Smoking Status: Former smoker Tobacco Use: Non-smoker Alcohol: None Drugs: None - *Family History Offspring Family History: Family History (Last Reviewed 09/16/18 @ 00:31 by Feli Dean DO) Brother CAD (coronary artery disease) CVA (cerebral vascular accident) Brother Sudden cardiac Brother CAD (coronary artery disease) Mother Heart disease Father Brain aneurysm History Items: Cancer, Diabetes, Hypertension Maternal Family History: Family History (Last Reviewed 09/16/18 @ 00:31 by Feli Dean DO) Brother CAD (coronary artery disease) CVA (cerebral vascular accident) Brother Sudden cardiac Brother CAD (coronary artery disease) Mother Heart disease Father Brain aneurysm History Items: - Sibling Family History: Family History (Last Reviewed 09/16/18 @ 00:31 by Feli Dean DO) Brother CAD (coronary artery disease) CVA (cerebral vascular accident) Brother Sudden cardiac Brother CAD (coronary artery disease) Mother Heart disease Father Brain aneurysm History Items: - Review of Systems Constitutional: Reports: Weakness. Denies: Chills, Fever, Weight Change HEENT: Denies: Head Aches, Sinus Congestion, Sinus Drainage Cardiovascular: Denies: Chest Pain, Palpitations Respiratory: Reports: Shortness of Breath. Denies: Cough, Shortness of breath at rest, Sputum production Gastrointestinal: Denies: Abdominal Pain, Nausea, Vomiting Genitourinary: Denies: Dysuria Musculoskeletal: Denies: Joint Pain, Joint Tenderness Skin: Denies: Rash, Wounds Neurological: Denies: Numbness, Tingling, Focal weakness Psychiatric: Denies: Anxiety, Depression, Homicidal Ideations, Suicidal Ideations Hematologic/ Lymphatic: Denies: Easy Bruising, Easy Bleeding VTE Information - Inpt Only VTE Present on Admission: No VTE Mechan Device Prophylaxis: Knee High HIWOT Hose VTE Pharm Prophylaxis ordered?: Yes - Physical Exam General: Alert, Oriented x3, Cooperative HEENT: Atraumatic, PERRLA, EOMI, Normocephalic Neck: Supple, No JVD, Negative Carotid Bruits Lungs: Clear to auscultation, Normal air movement Cardiovascular: Regular rate, No murmurs Abdomen: Bowel Sounds Present, Soft, Non Tender Extremities: Capillary Refill Less than 3 Seconds, Edema - 2+ pitting edema bilaterally. Skin: No rashes, No breakdown Musculoskeletal: No Tenderness to Palpation of Joints or Extremities Neurological: Cranial nerves II-XII grossly intact Psych/Mental Status: Normal Affect, Appropriate Vital Signs Temp Pulse Resp BP Pulse Ox 97.7 F L 78 17 131/58 H 90 09/18/18 16:33 09/18/18 18:50 09/18/18 16:33 09/18/18 18:50 09/18/18 16:33 Oxygen Flow Rate (L/min) 3 Oxygen Delivery Method Room Air Weight: 103.9 kg Body Mass Index (BMI) 43.2 Finger Stick Blood Glucose 204 POC Glucose 09/18/18 09/18/18 21:46 17:13 POC Glucose 212 H 202 H Assessment/Plan All Active Problems (Last Reviewed 09/16/18 @ 00:31 by Feli Dean, DO) Dyspnea (Acute) Right-sided heart failure (Acute) Cervicalgia (Resolved) Chest pain (Resolved) Diarrhea (Resolved) Gastroenteritis (Resolved) H/O hemorrhoidectomy (Resolved) History of tonsillectomy (Resolved) Hyperglycemia (Resolved) Hypokalemia (Resolved) Recent urinary tract infection (Resolved) S/P wrist surgery (Resolved) 73 year old female with below past medical history hospitalized for shortness of breath secondary to right sided heart failure, admitted to TCU with debility, here for rehabilitation, strengthening, prior to discharge home alone. * Debility - PT/OT. * Pain - Tylenol 1000MG Q8H PRN mild pain. * Bowel - Miralax 17GM daily, Senna/colace 1 tablet BID, Dulcolax 10MG daily PRN. * Pneumonia vaccination - Administer Prevnar 13 and/or Pneumovax 23 as necessary. * DVT prophylaxis - Lovenox 40MG SC daily. * COPD - Advair 1 puff BID, Incruse 1 puff daily, Ventolin MDI 2 puffs Q6H PRN, Oxygen per NC. * Hyperlipidemia - Atorvastatin 40MG QHS. * Anxiety - Buspar 15MG BID. * Allergic Rhinitis - Singulair 10MG QHS, Flonase 2 sprays QHS. * Right sided heart failure - Metoprolol succinate 50MG BID, Lisinopril 40MG daily, Lasix 80MG BID, Aldactone 25MG BID, Metolazone 2.5MG every other day. * Diabetes Mellitus II - Lantus 15 units BID, Humalog 8 units AM, 9 units lunch, 12 units PM, Victoza 0.6MG x 7 days, then 1.2MG x 7 days, then 1.8MG daily to help with weight control. * Hypomagnesemia - Magnesium Oxide 400MG daily. * Skin irritation - Calmoseptine 4x/day. * Nutrition - MVI daily. * Tinea Corporis - Nystatin powder 4x/day PRN. * Nausea - Zofran 4MG Q8H PRN. * Overactive bladder - Oxybutynin 5MG TID. * GERD - Pantoprazole 40MG BID. * Diabetic polyneuropathy - Lyrica 50MG TID. * Depression - Sertraline 200MG QHS. * Insomnia - Trazodone 150MG QHS. * Sleep apnea - BiPAP at night. * Polypharmacy - consider using [employer] to help trim number of medications.
[2018-09-18 23:57] VITALS: O2SAT 92
[2018-09-19] MEDS: Umeclidinium Bromide Inhaler 1 PUFF IH (05:06)
[2018-09-19] MEDS: Fluticasone/Salmeterol 232-14 Inhaler 1 PUFF IH ×2 (05:06→17:24)
[2018-09-19] MEDS: Magnesium Oxide 400 MG Tablet PO (05:07)
[2018-09-19] MEDS: busPIRone 15 MG TABLET PO ×2 (05:07→17:26)
[2018-09-19] MEDS: Furosemide 40 MG Tablet 80 MG PO ×2 (05:07→17:26)
[2018-09-19] MEDS: Levothyroxine 25 MCG TABLET PO (05:07)
[2018-09-19] MEDS: Spironolactone 25 MG Tablet PO ×2 (05:07→17:26)
[2018-09-19] MEDS: Pantoprazole Sodium 40 MG Tablet PO ×2 (05:07→17:26)
[2018-09-19] MEDS: Pregabalin 50 MG Capsule PO ×3 (05:07→21:02)
[2018-09-19] MEDS: Lisinopril 40 MG Tablet PO (05:07)
[2018-09-19 05:08] VITALS: BP 105/56; PULSE 60
[2018-09-19] MEDS: Senna/Docusate Sodium 1 Tablet PO (05:08)
[2018-09-19] MEDS: Enoxaparin 40 MG/0.4 ML Syringe SC (05:08)
[2018-09-19] MEDS: Metoprolol(XL)Succ 50 MG Tablet PO ×2 (05:08→17:26)
[2018-09-19 05:26] LABS: Absolute Lymphocyte Count 1.83 X10^3/ul (0.83-4.51); Absolute Neutrophil Count 6.7 X10^3/uL (2.0-7.7); Basophil# 0.03 X10^3/uL; Basophil% 0.3 % (0-1); Eosinophil# 0.16 X10^3/uL; Eosinophils% 1.7 % (0-5); Hematocrit 40.6 % (37-47); Lymphocyte # 1.83 X10^3/ul (4.0); Lymphocyte % 18.9 % (19-41); Mean Corpuscular Hgb 28.9 pg (27.0-32.0); Mean Corpuscular Volume 90.2 fL (81-99); Mean Platelet Vol. 10.4 fl (6.2-12.0); Monocyte# 0.83 X10^3/uL; Monocyte% 8.6 % (0-10); Neutrophil # 6.72 X10^3/uL (2.7-7.7); Neutrophil % 69.3 % (47-70); Platelet Count 303 K/mm3 (150-450); RBC Distribution Width CV 14.5 % (11.6-14.6); RBC Distribution Width SD 47.2 fl (35.1-43.9); White Blood Count 9.7 K/mm3 (4.4-11.0)
[2018-09-19 05:27] LABS: POSITIVE COUNT NO; POSITIVE DIFFERENTIAL NO; POSITIVE MORPHOLOGY NO
[2018-09-19 05:38] LABS: Anion Gap 7 (5-15); BUN 45 mg/dL (7-18); BUN/Creat Ratio 31.5 RATIO (10-20); Calcium,Total 9.3 mg/dL (8.5-10.1); Chloride 97 mmol/L (98-107); Creatinine, Serum 1.43 mg/dL (0.55-1.02); EST Glomerular Filtration Rate 38 mL/min (>60); Est Glom Filt Rate - Afr Amer 46 mL/min (>60); Estimated Creatinine Clearance 26.83 ml/min; Glucose 219 mg/dL (74-106); Potassium 5.4 mmol/L (3.5-5.1); Sodium Level 137 mmol/L (136-145)
[2018-09-19 06:29] VITALS: O2SAT 96
[2018-09-19 06:41] LABS: Bedside Glucose 225 mg/dL (70-110)
[2018-09-19] MEDS: Oxybutynin 5 MG Tablet PO ×3 (06:44→21:04)
[2018-09-19] MEDS: Multivitamins,Therapeutic Tablet 1 TABLET PO (08:08)
[2018-09-19] MEDS: Insulin Lispro 100 UNIT/ML INSULN.PEN 8 UNIT SC (08:09)
--- NOTE | 2018-09-19 09:50 | NURSING ---
dr pearson reviewed labs, new order DC potassium. rechecking BMP in 2 days.
--- NOTE | 2018-09-19 10:30 | PCM.CONS.GEN ---
Problem List (1) Type 2 diabetes mellitus with diabetic polyneuropathy Status: Chronic (2) Tinea unguium Status: Chronic (3) Toe pain, right Status: Chronic (4) Toe pain, left Status: Chronic Reason for Consult Date of Consultation: 09/19/18 Reason for Consultation: Painful toenails History of Present Illness: The patient is a 73 year old F was seen bedside for painful toenails this morning. She is admitted to the transitional care unit for rehabilitation secondary to debility. Her toenails are long, thick and painful. She is unable to trim them on her own and asked for help. She is diabetic and has rest paresthesias consistent with a neuropathy condition. She denies claudication. She denies previous history of lower extremity ulcers. She denies other pedal complaints at this time. Past Medical History Past Medical History (Chronic Problems): Chronic Problems (Last Reviewed 09/16/18 @ 00:31 by Feli Dean DO) Pulmonary HTN (Chronic) Lumbar spinal stenosis (Chronic) Obstructive sleep apnea (Chronic) Type 2 diabetes mellitus with diabetic polyneuropathy (Chronic) Tinea unguium (Chronic) Toe pain, right (Chronic) Toe pain, left (Chronic) Morbid obesity (Chronic) Chronic obstructive pulmonary disease (Chronic) IBS (irritable bowel syndrome) (Chronic) Degeneration of intervertebral disc of lumbosacral region (Chronic) Radiculopathy of lumbosacral region (Chronic) Spinal stenosis of lumbosacral region (Chronic) Primary osteoarthritis of right hip (Chronic) Spondylosis of lumbosacral region without myelopathy or radiculopathy (Chronic) Nonrheumatic aortic valve stenosis (Chronic) Nonrheumatic mitral valve insufficiency (Chronic) Heart failure (Chronic) Non Hodgkin's lymphoma (Chronic) Anxiety (Chronic) Depression (Chronic) Hypertension (Chronic) Hyperlipidemia (Chronic) Chronic respiratory failure (Chronic) copd 3 liters continuous Hypothyroidism (Chronic) GERD (gastroesophageal reflux disease) (Chronic) Diabetes mellitus, type II (Chronic) Benign essential HTN (Chronic) Sleep apnea (Chronic) Fatty liver disease, nonalcoholic (Chronic) Sjogren's syndrome (Chronic) Diverticulosis (Chronic) Mild aortic stenosis (Chronic) Medical History: Medical History (Last Reviewed 09/16/18 @ 00:31 by Feli Dean DO) Nonrheumatic aortic valve stenosis (Chronic) I35.0 Nonrheumatic mitral valve insufficiency (Chronic) I34.0 Heart failure (Chronic) I50.9 Hypertension (Chronic) I10 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 Breast pain, left N64.4 CHF (congestive heart failure) I50.9 Chronic obstructive pulmonary disease J44.9 Dyspnea on exertion R06.09 Neck pain M54.2 SCOTTY (obstructive sleep apnea) G47.33 Pseudomonas aeruginosa infection A49.8 Allergies adhesive Allergy (Verified 09/15/18 15:46) Itching adhesive tape Allergy (Verified 09/15/18 15:46) Rash amoxicillin trihydrate [From Augmentin] Allergy (Verified 09/15/18 15:46) Hives Iodinated Contrast- Oral and IV Dye Allergy (Verified 09/15/18 15:46) Shortness of breath latex Allergy (Verified 09/15/18 15:46) Rash Latex, Natural Rubber Allergy (Verified 09/15/18 15:46) Rash metronidazole [From Flagyl] Allergy (Verified 09/15/18 15:46) Hives Metronidazole HCl [From Flagyl] Allergy (Verified 09/15/18 15:46) Hives Penicillins [PCN] Allergy (Verified 09/15/18 15:46) Hives potassium clavulanate [From Augmentin] Allergy (Verified 09/15/18 15:46) Hives sulfamethoxazole [From Bactrim] Allergy (Verified 09/15/18 15:46) Hives hives trimethoprim [From Bactrim] Allergy (Verified 09/15/18 15:46) Hives hives diphenhydramine HCl [From Benadryl] Adverse Reaction (Verified 09/15/18 15:46) i could crawl to the ceiling i could crawl the ceiling omeprazole Adverse Reaction (Verified 09/15/18 15:46) Nausea promethazine HCl [From Phenergan] Adverse Reaction (Verified 09/15/18 15:46) Nausea antihistamine Allergy (Uncoded 09/15/18 15:46) i could crawl to the ceiling crawl the ceiling Home Medications: Ambulatory Orders Medication Instructions Recorded Albuterol Inhaler [Ventolin Hfa] 2 puff INHALATION Q6H PRN PRN 06/29/14 Levothyroxine [Synthroid] 25 mcg PO DAILY 06/29/14 Montelukast [Singulair] 10 mg PO QHS 06/29/14 Pantoprazole Sodium [Protonix] 40 mg PO BID 06/29/14 Sertraline HCl [Zoloft] 200 mg PO QHS 06/29/14 Albuterol Aerosols [Ventolin 2.5 mg INHALATION Q4H PRN PRN 08/20/14 Aerosols] Insulin Detemir [Levemir FlexPen] 15 units SUBCUT BID 01/26/15 Atorvastatin Calcium [Lipitor] 40 mg PO DAILY 09/18/15 Fluticasone 0.05% [Flonase Nasal 2 spray NASAL QHS 09/18/15 [place]] Pregabalin [Lyrica] 50 mg PO TID 09/18/15 traZODone [Desyrel] 150 mg PO QHS 11/26/16 Loperamide [Imodium] 2 mg PO BID PRN PRN 12/03/16 Acetaminophen [Tylenol] 1,000 mg PO BID 10/11/17 Lisinopril [Zestril] 40 mg PO DAILY 10/11/17 Multivitamin [Multiple Vitamins] 1 tab PO DAILY 10/11/17 Insulin Lispro [Humalog KwikPen] 8 unit SQ BREAKFAST 11/18/17 Insulin Lispro [Humalog KwikPen] 12 unit SQ DINNER 11/18/17 Magnesium Oxide [Magnesium] 400 mg PO DAILY 11/18/17 Spironolactone [Aldactone] 25 mg PO BID 03/13/18 Nystatin Powder [Mycostatin Powder] 1 applic TOPICAL 4X/DAY PRN 03/31/18 Ondansetron [Zofran Odt] 4 mg PO Q8H PRN PRN #10 tab 07/07/18 busPIRone [Buspar] 15 mg PO BID 07/29/18 Oxybutynin [Ditropan] 5 mg PO TID 09/12/18 Fluticasone/Umeclidin/Vilanter 1 puff INHALATION DAILY 09/15/18 [Trelegy Ellipta 100-62.5-25] Furosemide 80 mg PO BID 09/15/18 Metoprolol Succinate 50 mg PO BID 09/15/18 Insulin Lispro [Humalog KwikPen] 9 units SQ LUNCH 09/18/18 Liraglutide [Victoza 2-Yan] 1.8 mg SQ DAILY #0 07/11/19 Menthol/Lanolin/Calamine/Znox 1 applic TOPICAL 4X/DAY 09/18/18 [Calmoseptine Ointment] Metolazone [Zaroxolyn] 2.5 mg PO QODAY 09/18/18 Potassium Chloride [K-Dur] 40 meq PO BID 09/18/18 Surgical History: Surgical History (Last Reviewed 09/16/18 @ 00:31 by Feli Dean DO) H/O hemorrhoidectomy (Resolved) Z98.890 History of tonsillectomy (Resolved) Z90.89 S/P wrist surgery (Resolved) Z98.890 right Surgical History: adenoidectomy, tonsillectomy, - - Right breast hematoma removal, Left breast lumps removal, Right chest port, R Wrist surery, hemorrhoidectomy. 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 Smoking Status: Former smoker Tobacco Use: Non-smoker Alcohol: None Drugs: None - *Family History Offspring Family History: Family History (Last Reviewed 09/16/18 @ 00:31 by Feli Dean DO) Brother CAD (coronary artery disease) CVA (cerebral vascular accident) Brother Sudden cardiac Brother CAD (coronary artery disease) Mother Heart disease Father Brain aneurysm History Items: Cancer, Diabetes, Hypertension Maternal Family History: Family History (Last Reviewed 09/16/18 @ 00:31 by Feli Dean DO) Brother CAD (coronary artery disease) CVA (cerebral vascular accident) Brother Sudden cardiac Brother CAD (coronary artery disease) Mother Heart disease Father Brain aneurysm History Items: - Sibling Family History: Family History (Last Reviewed 09/16/18 @ 00:31 by Feli Dean DO) Brother CAD (coronary artery disease) CVA (cerebral vascular accident) Brother Sudden cardiac Brother CAD (coronary artery disease) Mother Heart disease Father Brain aneurysm History Items: - Review of Systems Constitutional: Denies: Chills, Fever Cardiovascular: Denies: Claudication Gastrointestinal: Denies: Nausea, Vomiting Musculoskeletal: Reports: Foot Pain - toenail pain. Denies: Leg Pain Skin: Denies: Wounds Neurological: Reports: Balance problems, Numbness - Physical Exam General: Alert, Oriented x3, Cooperative HEENT: Atraumatic Extremities: No cyanosis, Capillary Refill Less than 3 Seconds - All digits bilateral, No Calf Tenderness - Negative Manuel and Maya signs bilateral, Edema - Mild bilateral lower extremities, Peripheral Pulses Normal - Palpable 2 out of 4 PT and DP pulses bilateral, - - Dorsal contraction of lesser toes is subtle bilateral Skin: - - No ulcer, erythema, string, infection, maceration. Her skin is hairless and atrophic to the feet. Her toenails 1, 2, 3, 4, 5 are long, thick, and with mild dystrophic changes and subungual debris. Nail pain with compression noted bilateral Musculoskeletal: No Tenderness to Palpation of Joints or Extremities, Muscle Wasting Neurological: - - Lack of epicritic sensation light touch bilateral feet Psych/Mental Status: Normal Affect, Appropriate Vital Signs Temp Pulse Resp BP Pulse Ox 97.7 F L 60 17 105/56 L 96 09/18/18 16:33 09/19/18 05:08 09/18/18 16:33 09/19/18 05:08 09/19/18 06:29 Oxygen Flow Rate (L/min) 3 Oxygen Delivery Method Nasal Cannula Weight: 104.383 kg Body Mass Index (BMI) 43.2 Finger Stick Blood Glucose 204 Intake and Output for Last 24 Hours 09/17/18 09/18/18 09/19/18 23:59 23:59 23:59 Intake Total 250 / 250 360 / 360 Balance 250 / 250 360 / 360 Laboratory Tests Past 24 Hrs 09/19/18 09/19/18 05:14 05:14 WBC 9.7 RBC 4.50 Hgb 13.0 Hct 40.6 MCV 90.2 MCH 28.9 MCHC 32.0 RDW 14.5 RDW Differential 47.2 H Plt Count 303 MPV 10.4 Immature Gran % (Auto) 1.200 H Neut % (Auto) 69.3 Lymph % (Auto) 18.9 L [place] % (Auto) 8.6 Eos % (Auto) 1.7 Baso % (Auto) 0.3 Absolute Neuts (auto) 6.7 Absolute Lymphs (auto) 1.83 Total Counted Not Reportable Sodium 137 Potassium 5.4 H Chloride 97 L Carbon Dioxide 33.0 H Anion Gap 7 BUN 45 H Creatinine 1.43 H Estim Creat Clear Calc 26.83 Est GFR (MDRD) Af Amer 46 L Est GFR (MDRD) Non-Af 38 L BUN/Creatinine Ratio 31.5 H Glucose 219 H Calcium 9.3 POC Glucose 09/19/18 09/18/18 09/18/18 06:14 21:46 17:13 POC Glucose 225 H 212 H 202 H Assessment/Plan All Active Problems (Last Reviewed 09/16/18 @ 00:31 by Feli Dean DO) Dyspnea (Acute) Right-sided heart failure (Acute) Cervicalgia (Resolved) Chest pain (Resolved) Diarrhea (Resolved) Gastroenteritis (Resolved) H/O hemorrhoidectomy (Resolved) History of tonsillectomy (Resolved) Hyperglycemia (Resolved) Hypokalemia (Resolved) Recent urinary tract infection (Resolved) S/P wrist surgery (Resolved) Diabetes with neuropathy Toenail onychauxis and onychomycosis Right and left toe pain Debility Other comorbidities noted I reviewed her case. Diabetic foot exam was performed and she does not have any evidence of infection or limb ischemia. Her toenails were debrided in length and thickness with a nail nipper without incident; bilateral digits 1, 2, 3, 4, 5. She tolerated this well. She understands this may be secondary to microtrauma or nail fungus. She would like to proceed with palliative care as needed only for this condition. To follow-up with the foot and ankle center after discharge for additional help or for any other foot or ankle ailment. Medical management and continue rehabilitation is appreciated. I answered her questions. Thank you for the consultation. Lou Gee DPM, FACF[facility] [phone]
[2018-09-19] MEDS: Acetaminophen 500 MG Tablet 1000 MG PO (10:39)
[2018-09-19] MEDS: Tuberculin,Purif.prot.deriv. 50 TU/ML Vial 5 ML ID (10:40)
[2018-09-19 11:30] LABS: Bedside Glucose 197 mg/dL (70-110)
[2018-09-19] MEDS: Insulin Lispro 100 UNIT/ML INSULN.PEN 9 UNIT SC (12:34)
[2018-09-19 16:00] VITALS: BP 110/57; PULSE 72; RESP 18; TEMP 36.6; O2SAT 94
[2018-09-19 17:20] LABS: Bedside Glucose 132 mg/dL (70-110)
[2018-09-19 17:26] VITALS: BP 110/57; PULSE 72
[2018-09-19 18:11] LABS: Bedside Glucose 160 mg/dL (70-110)
[2018-09-19] MEDS: Insulin Lispro 100 UNIT/ML INSULN.PEN 12 UNIT SC (18:30)
[2018-09-19] MEDS: traMADol 50 MG Tablet PO (21:02)
[2018-09-19] MEDS: Fluticasone 0.05% 1 SPRAY NASAL.SRY 2 SPRAY NASAL (21:03)
[2018-09-19] MEDS: Sertraline 100 MG Tablet 200 MG PO (21:04)
[2018-09-19] MEDS: Montelukast 10 MG Tablet PO (21:04)
[2018-09-19] MEDS: traZODone 100 MG Tablet 150 MG PO (21:04)
[2018-09-19] MEDS: Atorvastatin Calcium 40 MG Tablet PO (21:05)
[2018-09-19 21:41] LABS: Bedside Glucose 229 mg/dL (70-110)
[2018-09-20 05:36] VITALS: BP 130/74; PULSE 73
[2018-09-20] MEDS: Oxybutynin 5 MG Tablet PO ×3 (05:36→21:22)
[2018-09-20] MEDS: Pregabalin 50 MG Capsule PO ×3 (05:36→21:21)
[2018-09-20] MEDS: Metoprolol(XL)Succ 50 MG Tablet PO ×2 (05:36→17:24)
[2018-09-20] MEDS: Pantoprazole Sodium 40 MG Tablet PO ×2 (05:36→17:24)
[2018-09-20] MEDS: Lisinopril 40 MG Tablet PO (05:37)
[2018-09-20] MEDS: busPIRone 15 MG TABLET PO ×2 (05:37→17:24)
[2018-09-20] MEDS: Levothyroxine 25 MCG TABLET PO (05:37)
[2018-09-20] MEDS: Furosemide 40 MG Tablet 80 MG PO ×2 (05:38→17:24)
[2018-09-20] MEDS: Magnesium Oxide 400 MG Tablet PO (05:38)
[2018-09-20] MEDS: Spironolactone 25 MG Tablet PO ×2 (05:38→17:24)
[2018-09-20] MEDS: Fluticasone/Salmeterol 232-14 Inhaler 1 PUFF IH ×2 (05:39→17:26)
[2018-09-20] MEDS: Enoxaparin 40 MG/0.4 ML Syringe SC (05:39)
[2018-09-20] MEDS: Umeclidinium Bromide Inhaler 1 PUFF IH (05:40)
[2018-09-20 06:36] LABS: Bedside Glucose 209 mg/dL (70-110)
[2018-09-20 07:25] VITALS: O2SAT 90
[2018-09-20] MEDS: Metolazone 2.5 MG Tablet PO (08:05)
[2018-09-20] MEDS: Multivitamins,Therapeutic Tablet 1 TABLET PO (08:05)
[2018-09-20] MEDS: Insulin Lispro 100 UNIT/ML INSULN.PEN 8 UNIT SC (08:06)
[2018-09-20] MEDS: traMADol 50 MG Tablet PO ×2 (08:11→21:21)
[2018-09-20 11:40] LABS: Bedside Glucose 214 mg/dL (70-110)
[2018-09-20] MEDS: Insulin Lispro 100 UNIT/ML INSULN.PEN 9 UNIT SC (12:22)
[2018-09-20 15:27] VITALS: BP 103/47; PULSE 63; RESP 18; TEMP 36.4; O2SAT 97
[2018-09-20 16:51] LABS: Bedside Glucose 184 mg/dL (70-110)
[2018-09-20 17:24] VITALS: PULSE 64
[2018-09-20] MEDS: Insulin Lispro 100 UNIT/ML INSULN.PEN 12 UNIT SC (17:25)
[2018-09-20] MEDS: Fluticasone 0.05% 1 SPRAY NASAL.SRY 2 SPRAY NASAL (21:20)
[2018-09-20 21:21] LABS: Bedside Glucose 165 mg/dL (70-110)
[2018-09-20] MEDS: Sertraline 100 MG Tablet 200 MG PO (21:22)
[2018-09-20] MEDS: traZODone 100 MG Tablet 150 MG PO (21:22)
[2018-09-20] MEDS: Montelukast 10 MG Tablet PO (21:22)
[2018-09-20] MEDS: Atorvastatin Calcium 40 MG Tablet PO (21:23)
[2018-09-21 05:51] VITALS: BP 100/58; PULSE 67
[2018-09-21] MEDS: Metoprolol(XL)Succ 50 MG Tablet PO ×2 (05:51→17:27)
[2018-09-21] MEDS: Levothyroxine 25 MCG TABLET PO (05:51)
[2018-09-21] MEDS: Pantoprazole Sodium 40 MG Tablet PO ×2 (05:52→17:28)
[2018-09-21] MEDS: busPIRone 15 MG TABLET PO ×2 (05:52→17:28)
[2018-09-21] MEDS: Furosemide 40 MG Tablet 80 MG PO (05:52)
[2018-09-21] MEDS: Spironolactone 25 MG Tablet PO (05:53)
[2018-09-21] MEDS: Oxybutynin 5 MG Tablet PO ×3 (05:53→21:22)
[2018-09-21] MEDS: Magnesium Oxide 400 MG Tablet PO (05:53)
[2018-09-21] MEDS: Pregabalin 50 MG Capsule PO ×3 (05:54→21:22)
[2018-09-21] MEDS: Lisinopril 40 MG Tablet PO (05:54)
[2018-09-21] MEDS: Enoxaparin 40 MG/0.4 ML Syringe SC (05:54)
[2018-09-21] MEDS: Fluticasone/Salmeterol 232-14 Inhaler 1 PUFF IH ×2 (06:00→17:27)
[2018-09-21] MEDS: Umeclidinium Bromide Inhaler 1 PUFF IH (06:02)
[2018-09-21 06:11] LABS: Bedside Glucose 188 mg/dL (70-110)
[2018-09-21 06:40] LABS: Bedside Glucose 176 mg/dL (70-110)
[2018-09-21] MEDS: traMADol 50 MG Tablet PO ×2 (06:59→20:31)
[2018-09-21 07:16] LABS: Anion Gap 9 (5-15); BUN 70 mg/dL (7-18); BUN/Creat Ratio 30.7 RATIO (10-20); Calcium,Total 9.5 mg/dL (8.5-10.1); Chloride 95 mmol/L (98-107); Creatinine, Serum 2.28 mg/dL (0.55-1.02); EST Glomerular Filtration Rate 22 mL/min (>60); Est Glom Filt Rate - Afr Amer 27 mL/min (>60); Estimated Creatinine Clearance 16.83 ml/min; Glucose 197 mg/dL (74-106); Potassium 5.2 mmol/L (3.5-5.1); Sodium Level 136 mmol/L (136-145)
[2018-09-21] MEDS: Multivitamins,Therapeutic Tablet 1 TABLET PO (08:32)
[2018-09-21] MEDS: Insulin Lispro 100 UNIT/ML INSULN.PEN 8 UNIT SC (08:33)
[2018-09-21 11:55] LABS: Bedside Glucose 230 mg/dL (70-110)
[2018-09-21] MEDS: Insulin Lispro 100 UNIT/ML INSULN.PEN 9 UNIT SC (12:01)
[2018-09-21 15:43] VITALS: BP 93/55; PULSE 69; RESP 20; TEMP 36
[2018-09-21 17:27] VITALS: BP 93/55; PULSE 69
[2018-09-21] MEDS: Insulin Lispro 100 UNIT/ML INSULN.PEN 12 UNIT SC (17:28)
[2018-09-21 17:36] LABS: Bedside Glucose 188 mg/dL (70-110)
[2018-09-21] MEDS: Sodium Polystyrene Sulfonate 15 GM/60 ML UDC 30 GM PO (18:12)
[2018-09-21] MEDS: Fluticasone 0.05% 1 SPRAY NASAL.SRY 2 SPRAY NASAL (20:32)
[2018-09-21 21:11] LABS: Bedside Glucose 192 mg/dL (70-110)
[2018-09-21] MEDS: traZODone 100 MG Tablet 150 MG PO (21:23)
[2018-09-21] MEDS: Atorvastatin Calcium 40 MG Tablet PO (21:23)
[2018-09-21] MEDS: Sertraline 100 MG Tablet 200 MG PO (21:23)
[2018-09-21] MEDS: Montelukast 10 MG Tablet PO (21:24)
[2018-09-22] MEDS: Umeclidinium Bromide Inhaler 1 PUFF IH (05:47)
[2018-09-22] MEDS: Fluticasone/Salmeterol 232-14 Inhaler 1 PUFF IH ×2 (05:47→17:47)
[2018-09-22] MEDS: Pregabalin 50 MG Capsule PO ×3 (05:48→21:09)
[2018-09-22] MEDS: traMADol 50 MG Tablet PO ×2 (05:48→21:09)
[2018-09-22] MEDS: Magnesium Oxide 400 MG Tablet PO (05:49)
[2018-09-22] MEDS: Levothyroxine 25 MCG TABLET PO (05:49)
[2018-09-22] MEDS: Enoxaparin 40 MG/0.4 ML Syringe SC (05:49)
[2018-09-22 05:50] VITALS: BP 98/51; PULSE 71
[2018-09-22] MEDS: busPIRone 15 MG TABLET PO ×2 (05:50→17:47)
[2018-09-22] MEDS: Lisinopril 40 MG Tablet PO (05:50)
[2018-09-22] MEDS: Oxybutynin 5 MG Tablet PO ×3 (05:50→20:53)
[2018-09-22] MEDS: Metoprolol(XL)Succ 50 MG Tablet PO ×2 (05:50→17:48)
[2018-09-22] MEDS: Pantoprazole Sodium 40 MG Tablet PO ×2 (05:50→17:48)
[2018-09-22 06:23] VITALS: O2SAT 96
[2018-09-22 06:26] LABS: Bedside Glucose 224 mg/dL (70-110)
[2018-09-22 06:43] LABS: Anion Gap 8 (5-15); BUN 85 mg/dL (7-18); BUN/Creat Ratio 30.5 RATIO (10-20); Chloride 95 mmol/L (98-107); Creatinine, Serum 2.79 mg/dL (0.55-1.02); EST Glomerular Filtration Rate 18 mL/min (>60); Est Glom Filt Rate - Afr Amer 21 mL/min (>60); Estimated Creatinine Clearance 13.75 ml/min; Glucose 211 mg/dL (74-106); Potassium 5.2 mmol/L (3.5-5.1); Sodium Level 135 mmol/L (136-145)
--- NOTE | 2018-09-22 08:25 | NURSING ---
New order for Kayexalate x1 now and recheck BMP tomorrow.
[2018-09-22] MEDS: Insulin Lispro 100 UNIT/ML INSULN.PEN 8 UNIT SC (09:15)
[2018-09-22] MEDS: Multivitamins,Therapeutic Tablet 1 TABLET PO (09:16)
[2018-09-22] MEDS: Sodium Polystyrene Sulfonate 15 GM/60 ML UDC 30 GM PO (09:16)
[2018-09-22] MEDS: Furosemide 80 MG Tablet PO (09:16)
[2018-09-22 11:11] LABS: Bedside Glucose 189 mg/dL (70-110)
[2018-09-22] MEDS: Insulin Lispro 100 UNIT/ML INSULN.PEN 9 UNIT SC (11:48)
[2018-09-22] MEDS: Acetaminophen 500 MG Tablet 1000 MG PO (11:51)
[2018-09-22 16:00] VITALS: BP 104/49; PULSE 79; RESP 18; TEMP 36.6; O2SAT 97
[2018-09-22 17:11] LABS: Bedside Glucose 162 mg/dL (70-110)
[2018-09-22 17:48] VITALS: BP 104/49; PULSE 79
[2018-09-22] MEDS: Insulin Lispro 100 UNIT/ML INSULN.PEN 12 UNIT SC (17:48)
[2018-09-22] MEDS: Montelukast 10 MG Tablet PO (20:52)
[2018-09-22] MEDS: Fluticasone 0.05% 1 SPRAY NASAL.SRY 2 SPRAY NASAL (20:52)
[2018-09-22] MEDS: Sertraline 100 MG Tablet 200 MG PO (20:52)
[2018-09-22] MEDS: Atorvastatin Calcium 40 MG Tablet PO (20:53)
[2018-09-22] MEDS: traZODone 100 MG Tablet 150 MG PO (20:53)
[2018-09-22 21:26] LABS: Bedside Glucose 163 mg/dL (70-110)
[2018-09-23 06:41] LABS: Bedside Glucose 160 mg/dL (70-110)
[2018-09-23] MEDS: Fluticasone/Salmeterol 232-14 Inhaler 1 PUFF IH ×2 (06:43→18:04)
[2018-09-23] MEDS: Umeclidinium Bromide Inhaler 1 PUFF IH (06:43)
[2018-09-23] MEDS: Oxybutynin 5 MG Tablet PO ×3 (06:44→21:10)
[2018-09-23] MEDS: Magnesium Oxide 400 MG Tablet PO (06:44)
[2018-09-23] MEDS: busPIRone 15 MG TABLET PO ×2 (06:44→18:05)
[2018-09-23] MEDS: Senna/Docusate Sodium 1 Tablet PO ×2 (06:44→18:05)
[2018-09-23] MEDS: Pantoprazole Sodium 40 MG Tablet PO ×2 (06:44→18:05)
[2018-09-23] MEDS: Levothyroxine 25 MCG TABLET PO (06:44)
[2018-09-23] MEDS: Enoxaparin 40 MG/0.4 ML Syringe SC (06:46)
[2018-09-23] MEDS: Lisinopril 40 MG Tablet PO (06:46)
[2018-09-23] MEDS: Polyethylene Glycol 3350 17 GM PACKET PO (06:50)
[2018-09-23 06:51] VITALS: BP 105/52; PULSE 78
[2018-09-23] MEDS: Metoprolol(XL)Succ 50 MG Tablet PO ×2 (06:51→18:05)
[2018-09-23] MEDS: Pregabalin 50 MG Capsule PO ×3 (06:55→21:10)
[2018-09-23 07:07] VITALS: O2SAT 95
--- NOTE | 2018-09-23 07:51 | NURSING ---
Attempt to access port. Port needle inserted between three raised areas. Resistance felt after needle inserted. Pt c/o sting with flush. No resistance with flush. No blood return noted. Heparin flush administered, needle removed. Pt denied pain or discomfort after needle removed. Reported at day shift. supervisor in charge notified, will be over to asses.
[2018-09-23] MEDS: Insulin Lispro 100 UNIT/ML INSULN.PEN 8 UNIT SC ×2 (08:33→11:42)
[2018-09-23] MEDS: Multivitamins,Therapeutic Tablet 1 TABLET PO (08:34)
[2018-09-23] MEDS: Furosemide 80 MG Tablet PO (08:34)
[2018-09-23 08:39] LABS: Anion Gap 8 (5-15); BUN 87 mg/dL (7-18); BUN/Creat Ratio 43.7 RATIO (10-20); Calcium,Total 8.6 mg/dL (8.5-10.1); Chloride 95 mmol/L (98-107); Creatinine, Serum 1.99 mg/dL (0.55-1.02); EST Glomerular Filtration Rate 26 mL/min (>60); Est Glom Filt Rate - Afr Amer 32 mL/min (>60); Estimated Creatinine Clearance 19.28 ml/min; Glucose 166 mg/dL (74-106); Potassium 4.6 mmol/L (3.5-5.1); Sodium Level 133 mmol/L (136-145)
[2018-09-23 11:25] LABS: Bedside Glucose 202 mg/dL (70-110)
[2018-09-23] MEDS: Insulin Lispro 100 UNIT/ML INSULN.PEN 9 UNIT SC (11:30)
[2018-09-23 14:25] LABS: Bacteria 0 SEEN /hpf (None Seen); Mucous, Urine 0 SEEN /hpf (<or=2+); Red Blood Cells-Urine 0 SEEN /hpf (0-5)
[2018-09-23 14:26] LABS: Color, Urine Yellow (Yellow); Glucose, Dipstick Normal (Normal); Ketone-Dipstick Negative (Negative); Leukocyte Esterase-Dipstick Negative /ul (Negative); Nitrite-Dipstick Negative (Negative); Occult Blood-Urine Negative /ul (Negative); Protein-Dipstick Negative (Negative); Urine Bilirubin Dipstick Negative (Negative); Urine Clarity Clear (Clear); Urine Urobilinogen Normal (Normal)
[2018-09-23 14:35] LABS: Squamous Epithelial Cells - UA 0-5 SEEN /hpf (5-10); White Blood Cells 0-5 SEEN /hpf (0-5)
[2018-09-23 16:00] VITALS: BP 97/45; PULSE 70; RESP 18; TEMP 37.1; O2SAT 97
[2018-09-23] MEDS: Glycerin/Hypromellose/PEG400 15 ml Bottle 2 DRP EACH EYE (16:12)
[2018-09-23 16:19] VITALS: BP 103/52
[2018-09-23 16:56] LABS: Bedside Glucose 177 mg/dL (70-110)
[2018-09-23 18:05] VITALS: PULSE 70
[2018-09-23] MEDS: Insulin Lispro 100 UNIT/ML INSULN.PEN 12 UNIT SC (18:06)
--- NOTE | 2018-09-23 20:47 | NURSING ---
3 attempts to access lt subclavian picc. successful on 3rd attempt. port is angled back towards the right, had to access from the right so needle angles towards the right.
[2018-09-23] MEDS: 0.9% Normal Saline 1,000 ML 999 ML IV (21:05)
[2018-09-23] MEDS: traZODone 100 MG Tablet 150 MG PO (21:10)
[2018-09-23] MEDS: Atorvastatin Calcium 40 MG Tablet PO (21:10)
[2018-09-23] MEDS: Sertraline 100 MG Tablet 200 MG PO (21:11)
[2018-09-23] MEDS: Fluticasone 0.05% 1 SPRAY NASAL.SRY 2 SPRAY NASAL (21:11)
[2018-09-23] MEDS: Montelukast 10 MG Tablet PO (21:11)
[2018-09-23 21:21] LABS: Bedside Glucose 179 mg/dL (70-110)
[2018-09-23] MEDS: traMADol 50 MG Tablet PO (22:52)
[2018-09-23] MEDS: Nystatin Powder 15gm Bottle 1 APPLIC TOPICAL (22:54)
[2018-09-24] MEDS: Senna/Docusate Sodium 1 Tablet PO (05:43)
[2018-09-24] MEDS: Levothyroxine 25 MCG TABLET PO (05:43)
[2018-09-24] MEDS: Magnesium Oxide 400 MG Tablet PO (05:43)
[2018-09-24] MEDS: Pantoprazole Sodium 40 MG Tablet PO ×2 (05:43→17:29)
[2018-09-24] MEDS: busPIRone 15 MG TABLET PO ×2 (05:43→17:28)
[2018-09-24] MEDS: Oxybutynin 5 MG Tablet PO ×3 (05:43→21:57)
[2018-09-24] MEDS: Enoxaparin 40 MG/0.4 ML Syringe SC (05:43)
[2018-09-24] MEDS: Lisinopril 40 MG Tablet PO (05:43)
[2018-09-24] MEDS: Fluticasone/Salmeterol 232-14 Inhaler 1 PUFF IH ×2 (05:44→17:27)
[2018-09-24] MEDS: Umeclidinium Bromide Inhaler 1 PUFF IH (05:44)
[2018-09-24] MEDS: Acetaminophen 500 MG Tablet 1000 MG PO (05:47)
[2018-09-24] MEDS: Pregabalin 50 MG Capsule PO ×3 (05:47→21:56)
[2018-09-24 05:48] VITALS: BP 114/52; PULSE 71
[2018-09-24] MEDS: Metoprolol(XL)Succ 50 MG Tablet PO ×2 (05:48→17:29)
[2018-09-24] MEDS: Polyethylene Glycol 3350 17 GM PACKET PO (05:56)
[2018-09-24 06:07] LABS: Anion Gap 7 (5-15); BUN 79 mg/dL (7-18); BUN/Creat Ratio 56.4 RATIO (10-20); Calcium,Total 9.2 mg/dL (8.5-10.1); Chloride 99 mmol/L (98-107); EST Glomerular Filtration Rate 39 mL/min (>60); Est Glom Filt Rate - Afr Amer 48 mL/min (>60); Estimated Creatinine Clearance 27.41 ml/min; Glucose 179 mg/dL (74-106); Potassium 4.6 mmol/L (3.5-5.1); Sodium Level 140 mmol/L (136-145)
[2018-09-24 06:41] LABS: Bedside Glucose 191 mg/dL (70-110)
[2018-09-24 07:18] VITALS: O2SAT 98
[2018-09-24] MEDS: Multivitamins,Therapeutic Tablet 1 TABLET PO (10:00)
[2018-09-24 11:06] LABS: Bedside Glucose 218 mg/dL (70-110)
[2018-09-24] MEDS: Insulin Lispro 100 UNIT/ML INSULN.PEN 9 UNIT SC (12:06)
--- NOTE | 2018-09-24 13:12 | CASEMGMT ---
Social Work IDT met with patient for care plan meeting. Discussed progress in therapy - mod assist with ADLs, loss of balance at times, and becoming very tired and drowsy throughout the day. Nursing aware of medical changes and addressing. Pt agreeable to being medically stable before discharging home. Insurance update is 09/29 - will speak with pt to discuss progress and determine safe discharge plan. Still awaiting return phone call from case filler whom just returned from a 3-day conference and can set up services before discharging home. Spoke with patient privately about Palliative Care. Pt stated she was referred to Palliative care before and was told she needed hospice. Pt refused hospice. Explained the differences between Palliative Care and Hospice - Palliative care will assist with symptom management and the goal is to manage care at home to avoid rehospitalization. Pt liked that and agreed to the referral. Referral made to [facility] and reiterated no conversations of hospice with pt. To call pt to schedule initial assessment. Will continue to follow for safe discharge planning. Veronica Scales, LUIS ARTIFICIAL STONE APPLICATOR
[2018-09-24 15:51] VITALS: BP 107/81; PULSE 70; RESP 18; TEMP 36.6; O2SAT 95
[2018-09-24 16:12] VITALS: BP 141/63; PULSE 71; RESP 18; TEMP 37.1; O2SAT 96
[2018-09-24 17:11] LABS: Bedside Glucose 176 mg/dL (70-110)
[2018-09-24 17:29] VITALS: BP 141/63; PULSE 71
[2018-09-24] MEDS: Insulin Lispro 100 UNIT/ML INSULN.PEN 12 UNIT SC (17:29)
[2018-09-24 21:01] LABS: Bedside Glucose 151 mg/dL (70-110)
[2018-09-24] MEDS: Montelukast 10 MG Tablet PO (21:56)
[2018-09-24] MEDS: Atorvastatin Calcium 40 MG Tablet PO (21:57)
[2018-09-24] MEDS: traZODone 100 MG Tablet 150 MG PO (21:57)
[2018-09-24] MEDS: Sertraline 100 MG Tablet 200 MG PO (21:57)
[2018-09-24] MEDS: Fluticasone 0.05% 1 SPRAY NASAL.SRY 2 SPRAY NASAL (21:58)
[2018-09-25] MEDS: Pregabalin 50 MG Capsule PO ×3 (05:52→21:55)
[2018-09-25] MEDS: Umeclidinium Bromide Inhaler 1 PUFF IH (05:52)
[2018-09-25 05:53] VITALS: BP 124/58; PULSE 65
[2018-09-25] MEDS: Fluticasone/Salmeterol 232-14 Inhaler 1 PUFF IH ×2 (05:53→17:02)
[2018-09-25] MEDS: Oxybutynin 5 MG Tablet PO ×3 (05:53→22:05)
[2018-09-25] MEDS: Enoxaparin 40 MG/0.4 ML Syringe SC (05:53)
[2018-09-25] MEDS: Metoprolol(XL)Succ 50 MG Tablet PO ×2 (05:53→17:03)
[2018-09-25] MEDS: busPIRone 15 MG TABLET PO ×2 (05:55→17:03)
[2018-09-25] MEDS: Pantoprazole Sodium 40 MG Tablet PO ×2 (05:55→17:03)
[2018-09-25] MEDS: Lisinopril 40 MG Tablet PO (05:55)
[2018-09-25] MEDS: Magnesium Oxide 400 MG Tablet PO (05:55)
[2018-09-25] MEDS: Levothyroxine 25 MCG TABLET PO (05:56)
[2018-09-25] MEDS: Glycerin/Hypromellose/PEG400 15 ml Bottle 2 DRP EACH EYE (05:58)
[2018-09-25 06:11] LABS: Bedside Glucose 148 mg/dL (70-110)
[2018-09-25] MEDS: Insulin Lispro 100 UNIT/ML INSULN.PEN 8 UNIT SC (08:15)
[2018-09-25] MEDS: Multivitamins,Therapeutic Tablet 1 TABLET PO (08:15)
[2018-09-25] MEDS: traMADol 50 MG Tablet PO ×2 (09:40→21:56)
[2018-09-25 11:16] LABS: Bedside Glucose 177 mg/dL (70-110)
[2018-09-25] MEDS: Insulin Lispro 100 UNIT/ML INSULN.PEN 9 UNIT SC (12:15)
--- NOTE | 2018-09-25 12:17 | NS ---
RONAN Mi asked RD to see Res to explain diet changes. Res previously on a cardiac diet w/ fluid restriction. New diet is 1800 calorie controlled, cardiac diet w/ fluid restriction. Explained CHO counting using menu- 4 CHO choices/meal. Res thought she would get more options w/ diet change but is agreeable to trying 1800 calorie, cardiac diet.
[2018-09-25 14:56] VITALS: O2SAT 95
[2018-09-25 15:52] VITALS: BP 132/51; PULSE 71; RESP 22; TEMP 36.6; O2SAT 96
[2018-09-25 17:03] VITALS: BP 132/51; PULSE 71
[2018-09-25] MEDS: Senna/Docusate Sodium 1 Tablet PO (17:03)
[2018-09-25 17:06] LABS: Bedside Glucose 217 mg/dL (70-110)
[2018-09-25] MEDS: Insulin Lispro 100 UNIT/ML INSULN.PEN 12 UNIT SC (17:21)
[2018-09-25 21:16] LABS: Bedside Glucose 311 mg/dL (70-110)
[2018-09-25] MEDS: Fluticasone 0.05% 1 SPRAY NASAL.SRY 2 SPRAY NASAL (21:56)
[2018-09-25] MEDS: Montelukast 10 MG Tablet PO (22:05)
[2018-09-25] MEDS: Atorvastatin Calcium 40 MG Tablet PO (22:05)
[2018-09-25] MEDS: traZODone 100 MG Tablet 150 MG PO (22:06)
[2018-09-25] MEDS: Sertraline 100 MG Tablet 200 MG PO (22:06)
--- NOTE | 2018-09-26 04:21 | NURSING ---
Pt c/o sore throat. Per pt was on PO ATBs prior to admission for infection ordered by Dr Forbes. Pt reports not finishing ATB course. Will update Dr Damian.
[2018-09-26] MEDS: Pregabalin 50 MG Capsule PO ×3 (05:59→21:19)
[2018-09-26] MEDS: Umeclidinium Bromide Inhaler 1 PUFF IH (06:05)
[2018-09-26] MEDS: Pantoprazole Sodium 40 MG Tablet PO ×2 (06:05→17:33)
[2018-09-26] MEDS: busPIRone 15 MG TABLET PO ×2 (06:05→17:33)
[2018-09-26] MEDS: Levothyroxine 25 MCG TABLET PO (06:05)
[2018-09-26] MEDS: Magnesium Oxide 400 MG Tablet PO (06:05)
[2018-09-26] MEDS: Fluticasone/Salmeterol 232-14 Inhaler 1 PUFF IH ×2 (06:05→17:33)
[2018-09-26] MEDS: Oxybutynin 5 MG Tablet PO ×3 (06:05→21:19)
[2018-09-26] MEDS: Lisinopril 40 MG Tablet PO (06:05)
[2018-09-26] MEDS: Senna/Docusate Sodium 1 Tablet PO ×2 (06:06→17:33)
[2018-09-26] MEDS: Enoxaparin 40 MG/0.4 ML Syringe SC (06:06)
[2018-09-26] MEDS: Polyethylene Glycol 3350 17 GM PACKET PO (06:06)
[2018-09-26 06:10] VITALS: BP 133/54; PULSE 70
[2018-09-26] MEDS: Metoprolol(XL)Succ 50 MG Tablet PO ×2 (06:10→17:33)
[2018-09-26 06:17] LABS: Anion Gap 5 (5-15); BUN 42 mg/dL (7-18); BUN/Creat Ratio 39.3 RATIO (10-20); Calcium,Total 9.7 mg/dL (8.5-10.1); Chloride 103 mmol/L (98-107); Creatinine, Serum 1.07 mg/dL (0.55-1.02); EST Glomerular Filtration Rate 54 mL/min (>60); Est Glom Filt Rate - Afr Amer 65 mL/min (>60); Estimated Creatinine Clearance 35.86 ml/min; Glucose 183 mg/dL (74-106); Potassium 5.1 mmol/L (3.5-5.1); Sodium Level 142 mmol/L (136-145)
[2018-09-26 06:29] LABS: Absolute Lymphocyte Count 1.79 X10^3/uL (0.83-4.51); Absolute Neutrophil Count 5.7 X10^3/uL (2.0-7.7); Basophil# 0.04 X10^3/uL; Basophil% 0.5 % (0-1); Eosinophils% 2.4 % (0-5); Hematocrit 38.7 % (37-47); Hemoglobin 11.9 g/dL (12.0-15.0); Lymphocyte # 1.79 X10^3/ul (4.0); Lymphocyte % 21.2 % (19-41); Mean Corp Hgb Conc 30.7 g/dL (32-36); Mean Corpuscular Volume 94.2 fL (81-99); Mean Platelet Vol. 10.6 fl (6.2-12.0); Monocyte# 0.68 X10^3/uL; Monocyte% 8.1 % (0-10); Neutrophil # 5.66 X10^3/uL (2.7-7.7); Neutrophil % 67.1 % (47-70); Platelet Count 259 K/mm3 (150-450); RBC Distribution Width SD 47.2 fl (35.1-43.9); Red Blood Count 4.11 M/mm3 (4.2-5.4); White Blood Count 8.4 K/mm3 (4.4-11.0)
[2018-09-26 06:30] VITALS: PULSE 66; RESP 26; O2SAT 97
[2018-09-26] MEDS: Albuterol 2.5 MG/3 ML VIAL.NEB. INHALATION (06:30)
[2018-09-26 06:36] LABS: Bedside Glucose 198 mg/dL (70-110)
[2018-09-26] MEDS: Insulin Lispro 100 UNIT/ML INSULN.PEN 8 UNIT SC (08:59)
[2018-09-26] MEDS: Multivitamins,Therapeutic Tablet 1 TABLET PO (09:00)
[2018-09-26] MEDS: Acetaminophen 500 MG Tablet 1000 MG PO (09:07)
[2018-09-26] MEDS: traMADol 50 MG Tablet PO ×2 (10:23→22:41)
[2018-09-26] MEDS: Tuberculin,Purif.prot.deriv. 50 TU/ML Vial 5 ML ID (10:24)
[2018-09-26 10:56] LABS: Bedside Glucose 211 mg/dL (70-110)
[2018-09-26] MEDS: Insulin Lispro 100 UNIT/ML INSULN.PEN 9 UNIT SC (11:52)
[2018-09-26 15:08] VITALS: BP 124/61; PULSE 68; RESP 16; TEMP 36.6; O2SAT 94
[2018-09-26 17:00] LABS: Bedside Glucose 105 mg/dL (70-110)
[2018-09-26 17:33] VITALS: PULSE 68
--- NOTE | 2018-09-26 17:35 | NURSING ---
Addendum entered by Libby Barba 09/26/18 17:59: r' updated on n.o. levaquin given at this time. Original Note: pt c/o sore throat, reports that she never finished PO ATB that Dr Forbes started her on beginning of month for + throat culture. Dr Damian updated, new order for levaquin 500mg x1 now and then x 5 days. reviewed culture results from Dr Forbes office, Levaquin was the drug of choice for the 2 organisms.
[2018-09-26] MEDS: levoFLOXacin 500 MG Tablet PO (17:58)
[2018-09-26] MEDS: Fluticasone 0.05% 1 SPRAY NASAL.SRY 2 SPRAY NASAL (21:19)
[2018-09-26] MEDS: Montelukast 10 MG Tablet PO (21:20)
[2018-09-26] MEDS: Atorvastatin Calcium 40 MG Tablet PO (21:20)
[2018-09-26 21:25] LABS: Bedside Glucose 201 mg/dL (70-110)
[2018-09-26] MEDS: traZODone 100 MG Tablet 150 MG PO (22:42)
[2018-09-26] MEDS: Sertraline 100 MG Tablet 200 MG PO (22:42)
--- NOTE | 2018-09-26 23:17 | CPS ---
Addendum entered and electronically signed by Aleksey Alexis 09/26/18 23:19: Original Note: Pts. Home BiPAP unit setup and placed on pt. 3L O2 Bled per pts. home regimen. Pt. understands that if any problems occur with BiPAP tonight, to contact RN to let SCIENTIFIC SOFTWARE ENGINEER know.
[2018-09-27] MEDS: Pregabalin 50 MG Capsule PO ×3 (05:55→22:38)
[2018-09-27 05:56] VITALS: BP 132/72; PULSE 69
[2018-09-27] MEDS: Levothyroxine 25 MCG TABLET PO (05:56)
[2018-09-27] MEDS: Metoprolol(XL)Succ 50 MG Tablet PO ×2 (05:56→17:45)
[2018-09-27] MEDS: Pantoprazole Sodium 40 MG Tablet PO ×2 (05:56→17:45)
[2018-09-27] MEDS: Lisinopril 40 MG Tablet PO (05:56)
[2018-09-27] MEDS: Polyethylene Glycol 3350 17 GM PACKET PO (05:56)
[2018-09-27] MEDS: busPIRone 15 MG TABLET PO ×2 (05:56→17:45)
[2018-09-27] MEDS: Magnesium Oxide 400 MG Tablet PO (05:56)
[2018-09-27] MEDS: Enoxaparin 40 MG/0.4 ML Syringe SC (05:56)
[2018-09-27] MEDS: Senna/Docusate Sodium 1 Tablet PO ×2 (05:56→17:46)
[2018-09-27] MEDS: levoFLOXacin 500 MG Tablet PO (05:57)
[2018-09-27] MEDS: Oxybutynin 5 MG Tablet PO ×3 (05:57→22:26)
[2018-09-27] MEDS: Bisacodyl 5 MG Tablet 10 MG PO (06:02)
[2018-09-27] MEDS: Umeclidinium Bromide Inhaler 1 PUFF IH (06:02)
[2018-09-27] MEDS: Fluticasone/Salmeterol 232-14 Inhaler 1 PUFF IH ×2 (06:03→17:43)
[2018-09-27 07:10] LABS: Bedside Glucose 166 mg/dL (70-110)
[2018-09-27 07:21] VITALS: O2SAT 95
[2018-09-27] MEDS: Insulin Lispro 100 UNIT/ML INSULN.PEN 8 UNIT SC ×3 (08:19→17:43)
[2018-09-27] MEDS: Multivitamins,Therapeutic Tablet 1 TABLET PO (08:20)
[2018-09-27 11:16] LABS: Bedside Glucose 174 mg/dL (70-110)
[2018-09-27] MEDS: Insulin Lispro 100 UNIT/ML INSULN.PEN 9 UNIT SC (12:05)
[2018-09-27 16:00] VITALS: BP 122/77; PULSE 69; RESP 18; TEMP 37; O2SAT 97
[2018-09-27 17:05] LABS: Bedside Glucose 148 mg/dL (70-110)
[2018-09-27] MEDS: Insulin Lispro 100 UNIT/ML INSULN.PEN 12 UNIT SC (17:44)
[2018-09-27 17:45] VITALS: BP 122/77; PULSE 69
[2018-09-27 21:40] LABS: Bedside Glucose 164 mg/dL (70-110)
[2018-09-27] MEDS: Sertraline 100 MG Tablet 200 MG PO (22:26)
[2018-09-27] MEDS: Montelukast 10 MG Tablet PO (22:26)
[2018-09-27] MEDS: Atorvastatin Calcium 40 MG Tablet PO (22:26)
[2018-09-27] MEDS: traZODone 100 MG Tablet 150 MG PO (22:26)
[2018-09-27] MEDS: Fluticasone 0.05% 1 SPRAY NASAL.SRY 2 SPRAY NASAL (22:30)
[2018-09-27] MEDS: traMADol 50 MG Tablet PO (22:37)
[2018-09-28 07:22] VITALS: O2SAT 96
[2018-09-28] MEDS: Magnesium Oxide 400 MG Tablet PO (07:23)
[2018-09-28] MEDS: levoFLOXacin 500 MG Tablet PO (07:23)
[2018-09-28] MEDS: busPIRone 15 MG TABLET PO ×2 (07:23→17:17)
[2018-09-28] MEDS: Oxybutynin 5 MG Tablet PO ×3 (07:23→22:19)
[2018-09-28 07:24] VITALS: PULSE 73
[2018-09-28] MEDS: Senna/Docusate Sodium 1 Tablet PO ×2 (07:24→17:17)
[2018-09-28] MEDS: Pantoprazole Sodium 40 MG Tablet PO ×2 (07:24→17:17)
[2018-09-28] MEDS: Lisinopril 40 MG Tablet PO (07:24)
[2018-09-28] MEDS: Levothyroxine 25 MCG TABLET PO (07:24)
[2018-09-28] MEDS: Enoxaparin 40 MG/0.4 ML Syringe SC (07:24)
[2018-09-28] MEDS: Metoprolol(XL)Succ 50 MG Tablet PO ×2 (07:24→17:17)
[2018-09-28 07:31] LABS: Bedside Glucose 162 mg/dL (70-110)
[2018-09-28] MEDS: Fluticasone/Salmeterol 232-14 Inhaler 1 PUFF IH ×2 (07:33→17:20)
[2018-09-28] MEDS: Umeclidinium Bromide Inhaler 1 PUFF IH (07:33)
[2018-09-28] MEDS: Pregabalin 50 MG Capsule PO ×3 (07:38→22:19)
--- NOTE | 2018-09-28 07:43 | NURSING ---
called rx and requested lantus be sent for the pt.
[2018-09-28] MEDS: Multivitamins,Therapeutic Tablet 1 TABLET PO (08:33)
[2018-09-28 11:26] LABS: Bedside Glucose 188 mg/dL (70-110)
[2018-09-28] MEDS: Insulin Lispro 100 UNIT/ML INSULN.PEN 9 UNIT SC (11:57)
[2018-09-28 16:00] VITALS: BP 129/61; PULSE 66; RESP 18; TEMP 36.6; O2SAT 3
[2018-09-28 17:15] LABS: Bedside Glucose 139 mg/dL (70-110)
[2018-09-28 17:17] VITALS: BP 129/61; PULSE 66
[2018-09-28] MEDS: Acetaminophen 500 MG Tablet 1000 MG PO (17:18)
[2018-09-28] MEDS: Insulin Lispro 100 UNIT/ML INSULN.PEN 12 UNIT SC (17:22)
[2018-09-28] MEDS: Fluticasone 0.05% 1 SPRAY NASAL.SRY 2 SPRAY NASAL (20:33)
[2018-09-28 21:45] LABS: Bedside Glucose 162 mg/dL (70-110)
[2018-09-28] MEDS: traMADol 50 MG Tablet PO (22:19)
[2018-09-28] MEDS: Sertraline 100 MG Tablet 200 MG PO (22:19)
[2018-09-28] MEDS: traZODone 100 MG Tablet 150 MG PO (22:19)
[2018-09-28] MEDS: Atorvastatin Calcium 40 MG Tablet PO (22:19)
[2018-09-28] MEDS: Montelukast 10 MG Tablet PO (22:25)
[2018-09-29 02:08] VITALS: O2SAT 97
[2018-09-29] MEDS: Lisinopril 40 MG Tablet PO (06:07)
[2018-09-29] MEDS: Magnesium Oxide 400 MG Tablet PO (06:07)
[2018-09-29] MEDS: levoFLOXacin 500 MG Tablet PO (06:07)
[2018-09-29] MEDS: busPIRone 15 MG TABLET PO ×2 (06:07→16:23)
[2018-09-29] MEDS: Oxybutynin 5 MG Tablet PO ×3 (06:07→22:58)
[2018-09-29] MEDS: Acetaminophen 500 MG Tablet 1000 MG PO ×2 (06:07→23:00)
[2018-09-29] MEDS: Pregabalin 50 MG Capsule PO ×3 (06:07→23:00)
[2018-09-29] MEDS: Pantoprazole Sodium 40 MG Tablet PO ×2 (06:07→16:23)
[2018-09-29] MEDS: Levothyroxine 25 MCG TABLET PO (06:07)
[2018-09-29] MEDS: Senna/Docusate Sodium 1 Tablet PO ×2 (06:07→16:23)
[2018-09-29 06:08] VITALS: BP 115/55; PULSE 72
[2018-09-29] MEDS: Metoprolol(XL)Succ 50 MG Tablet PO ×2 (06:08→16:23)
[2018-09-29] MEDS: Umeclidinium Bromide Inhaler 1 PUFF IH (06:08)
[2018-09-29] MEDS: Polyethylene Glycol 3350 17 GM PACKET PO (06:08)
[2018-09-29] MEDS: Fluticasone/Salmeterol 232-14 Inhaler 1 PUFF IH ×2 (06:08→16:24)
[2018-09-29] MEDS: Enoxaparin 40 MG/0.4 ML Syringe SC (06:16)
[2018-09-29 06:35] VITALS: O2SAT 95
[2018-09-29 07:15] LABS: Bedside Glucose 153 mg/dL (70-110)
[2018-09-29] MEDS: traMADol 50 MG Tablet PO ×2 (07:25→16:23)
[2018-09-29] MEDS: Multivitamins,Therapeutic Tablet 1 TABLET PO (08:13)
[2018-09-29] MEDS: Insulin Lispro 100 UNIT/ML INSULN.PEN 8 UNIT SC (08:13)
--- NOTE | 2018-09-29 11:33 | CASEMGMT ---
Insurance Continued stay review submitted via fax. Will await continued stay determination. Auth# [id number] KAM Apodaca
[2018-09-29 16:00] VITALS: BP 125/58; PULSE 78; RESP 17; TEMP 36.7; O2SAT 93
[2018-09-29 16:23] VITALS: PULSE 78
--- NOTE | 2018-09-29 16:29 | NURSING ---
R' BACK FROM [facility] AROUND 1600. NO N.O. FROM EYE APPT. STATES SHE ORDERED NEW GLASSES.
[2018-09-29 17:16] LABS: Bedside Glucose 198 mg/dL (70-110)
[2018-09-29] MEDS: Insulin Lispro 100 UNIT/ML INSULN.PEN 12 UNIT SC (17:27)
[2018-09-29 21:40] LABS: Bedside Glucose 198 mg/dL (70-110)
[2018-09-29] MEDS: Fluticasone 0.05% 1 SPRAY NASAL.SRY 2 SPRAY NASAL (22:53)
[2018-09-29] MEDS: Atorvastatin Calcium 40 MG Tablet PO (22:57)
[2018-09-29] MEDS: traZODone 100 MG Tablet 150 MG PO (22:57)
[2018-09-29] MEDS: Montelukast 10 MG Tablet PO (22:57)
[2018-09-29] MEDS: Sertraline 100 MG Tablet 200 MG PO (22:58)
[2018-09-30 03:55] VITALS: O2SAT 96
[2018-09-30 05:58] VITALS: BP 125/62; PULSE 77
[2018-09-30] MEDS: Metoprolol(XL)Succ 50 MG Tablet PO ×2 (05:58→17:54)
[2018-09-30] MEDS: Umeclidinium Bromide Inhaler 1 PUFF IH (05:58)
[2018-09-30] MEDS: Fluticasone/Salmeterol 232-14 Inhaler 1 PUFF IH ×2 (05:58→17:57)
[2018-09-30] MEDS: Pantoprazole Sodium 40 MG Tablet PO ×2 (05:59→17:54)
[2018-09-30] MEDS: levoFLOXacin 500 MG Tablet PO (05:59)
[2018-09-30] MEDS: Senna/Docusate Sodium 1 Tablet PO ×2 (05:59→17:54)
[2018-09-30] MEDS: Levothyroxine 25 MCG TABLET PO (05:59)
[2018-09-30] MEDS: busPIRone 15 MG TABLET PO ×2 (05:59→17:54)
[2018-09-30] MEDS: Oxybutynin 5 MG Tablet PO ×3 (05:59→22:26)
[2018-09-30] MEDS: Polyethylene Glycol 3350 17 GM PACKET PO (05:59)
[2018-09-30] MEDS: Lisinopril 40 MG Tablet PO (05:59)
[2018-09-30] MEDS: Enoxaparin 40 MG/0.4 ML Syringe SC (06:00)
[2018-09-30] MEDS: Magnesium Oxide 400 MG Tablet PO (06:00)
[2018-09-30] MEDS: Pregabalin 50 MG Capsule PO ×3 (06:09→22:26)
[2018-09-30] MEDS: Bisacodyl 5 MG Tablet 10 MG PO (06:09)
[2018-09-30 06:35] LABS: Bedside Glucose 151 mg/dL (70-110)
[2018-09-30] MEDS: Acetaminophen 500 MG Tablet 1000 MG PO (07:00)
--- NOTE | 2018-09-30 09:03 | PHA.CONS_ITS ---
<Cristian Montemayor - Last Filed: 09/30/18 09:03> Progress Note - Pharmacy Subjective: [] TCU Admission Objective: Allergies adhesive Allergy (Verified 09/15/18 15:46) Itching adhesive tape Allergy (Verified 09/15/18 15:46) Rash amoxicillin trihydrate [From Augmentin] Allergy (Verified 09/15/18 15:46) Hives Iodinated Contrast- Oral and IV Dye Allergy (Verified 09/15/18 15:46) Shortness of breath latex Allergy (Verified 09/15/18 15:46) Rash Latex, Natural Rubber Allergy (Verified 09/15/18 15:46) Rash metronidazole [From Flagyl] Allergy (Verified 09/15/18 15:46) Hives Metronidazole HCl [From Flagyl] Allergy (Verified 09/15/18 15:46) Hives Penicillins [PCN] Allergy (Verified 09/15/18 15:46) Hives potassium clavulanate [From Augmentin] Allergy (Verified 09/15/18 15:46) Hives sulfamethoxazole [From Bactrim] Allergy (Verified 09/15/18 15:46) Hives hives trimethoprim [From Bactrim] Allergy (Verified 09/15/18 15:46) Hives hives diphenhydramine HCl [From Benadryl] Adverse Reaction (Verified 09/15/18 15:46) i could crawl to the ceiling i could crawl the ceiling omeprazole Adverse Reaction (Verified 09/15/18 15:46) Nausea promethazine HCl [From Phenergan] Adverse Reaction (Verified 09/15/18 15:46) Nausea antihistamine Allergy (Uncoded 09/15/18 15:46) i could crawl to the ceiling crawl the ceiling Current Medications Generic Name Dose Route Start Last Admin Trade Name Freq PRN Reason Stop Dose Admin Acetaminophen 1,000 mg 09/18/18 22:26 09/30/18 07:00 Tylenol PO 1,000 mg Q8H PRN PRN Administration MILD PAIN (1-3/10) Albuterol Sulfate 2.5 mg 09/25/18 09:35 09/26/18 06:30 Ventolin Aerosols INHALATION 2.5 mg Q6H PRN PRN Administration sob/wheezing Atorvastatin Calcium 40 mg 09/18/18 22:00 09/29/18 22:57 Lipitor PO 40 mg QHS DANIELLE Administration Bisacodyl 10 mg 09/18/18 17:07 09/30/18 06:09 Dulcolax PO 10 mg DAILY PRN PRN Administration Constipation Buspirone HCl 15 mg 09/18/18 18:00 09/30/18 05:59 Buspar PO 15 mg BID DANIELLE Administration Emollient Ointment 1 applic 09/23/18 22:00 09/29/18 23:00 Eucerin Intensive Repair TOPICAL 1 applicatio QHS DANIELLE Administration Protocol Enoxaparin Sodium 40 mg 09/19/18 06:00 09/30/18 06:00 Lovenox SC 40 mg DAILY@0600 DANIELLE Administration Fluticasone Propionate 2 spray 09/18/18 22:00 09/29/18 22:53 Flonase Nasal [place] NASAL 2 spray QHS DANIELLE Administration Heparin Sodium (Beef Lung) 50 units 09/18/18 20:15 09/28/18 22:19 IV 50 units UD PRN Administration HEPARIN FLUSH Insulin Glargine 15 units 09/18/18 18:30 09/30/18 06:15 Lantus ([facility]) SC 15 units BID DANIELLE Administration Insulin Human Lispro 8 unit 09/19/18 08:00 09/29/18 08:13 Humalog Kwikpen ([facility]) SC 8 units BREAKFAST DANIELLE Administration Insulin Human Lispro 9 unit 09/19/18 12:00 09/29/18 14:19 Humalog Kwikpen ([facility]) SC Not Given LUNCH DANIELLE Insulin Human Lispro 12 unit 09/18/18 17:00 09/29/18 17:27 Humalog Kwikpen ([facility]) SC 12 units DINNER DANIELLE Administration Levofloxacin 500 mg 09/27/18 06:00 09/30/18 05:59 Levaquin Tablet PO 10/02/18 06:01 500 mg DAILY@0600 DANIELLE Administration Levothyroxine Sodium 25 mcg 09/19/18 06:00 09/30/18 05:59 Synthroid PO 25 mcg DAILY DANIELLE Administration Lisinopril 40 mg 09/19/18 06:00 09/30/18 05:59 Zestril PO 40 mg DAILY DANIELLE Administration Magnesium Oxide 400 mg 09/19/18 06:00 09/30/18 06:00 Mag-Ox 400 PO 400 mg DAILY DANIELLE Administration Metoprolol Succinate 50 mg 09/18/18 18:00 09/30/18 05:58 Toprol Xl (Beta Gisel) PO 50 mg BID DANIELLE Administration Montelukast Sodium 10 mg 09/18/18 22:00 09/29/18 22:57 Singulair PO 10 mg QHS DANIELLE Administration Multivitamins 1 tablet 09/19/18 08:00 09/29/18 08:13 Multivitamin PO 1 tablet DAILY@0800 DANIELLE Administration Nystatin 1 applic 09/18/18 16:59 09/23/18 22:54 Mycostatin Powder TOPICAL 1 applicatio 4X/DAY PRN Administration IRRITATION Protocol Ondansetron HCl 4 mg 09/18/18 16:59 Zofran Odt PO Q8H PRN PRN NAUSEA Oxybutynin Chloride 5 mg 09/18/18 22:00 09/30/18 05:59 Ditropan PO 5 mg TID DANIELLE Administration Pantoprazole Sodium 40 mg 09/18/18 18:00 09/30/18 05:59 Protonix PO 40 mg BID DANIELLE Administration Polyethylene Glycol 17 gm 09/19/18 06:00 09/30/18 05:59 Miralax PO 17 gm DAILY DANIELLE Administration Pregabalin 50 mg 09/18/18 22:00 09/30/18 06:09 Lyrica PO 50 mg TID DANIELLE Administration Fluticasone/Salmeterol 1 puff 09/19/18 06:00 09/30/18 05:58 Fluticasone-Salmeterol 232-14 IH 1 puff Q12 DANIELLE Administration Senna/Docusate Sodium 1 tablet 09/19/18 06:00 09/30/18 05:59 Senokot-S, Josephine-Colace PO 1 tablet BID ADNIELLE Administration Sertraline HCl 200 mg 09/18/18 22:00 09/29/18 22:58 Zoloft PO 200 mg QHS DANIELLE Administration Sodium Chloride 10 - 40 ml 09/18/18 20:15 09/28/18 22:18 IV 10 ml UD PRN Administration R PORT FLUSH Tramadol HCl 50 mg 09/19/18 15:31 09/29/18 16:23 Ultram PO 50 mg Q8H PRN PRN Administration MODERATE PAIN (4-5/10) Trazodone HCl 150 mg 09/18/18 22:00 09/29/18 22:57 Desyrel PO 150 mg QHS DANIELLE Administration Problem List (Last Reviewed 09/16/18 @ 00:31 by Feli Dean DO) Lumbar spinal stenosis (Chronic) Obstructive sleep apnea (Chronic) Type 2 diabetes mellitus with diabetic polyneuropathy (Chronic) Tinea unguium (Chronic) Toe pain, right (Chronic) Toe pain, left (Chronic) Vital Signs Temp Pulse Resp BP Pulse Ox 98.0 F 77 17 125/62 H 96 09/29/18 16:00 09/30/18 05:58 09/29/18 16:00 09/30/18 05:58 09/30/18 03:55 Oxygen Flow Rate (L/min) 3 Oxygen Delivery Method Nasal Cannula Weight: 106.141 kg Body Mass Index (BMI) 43.2 Finger Stick Blood Glucose 204 Sodium 142 mmol/L (136-145) 09/26/18 05:57 Potassium 5.1 mmol/L (3.5-5.1) 09/26/18 05:57 Chloride 103 mmol/L (98-107) 09/26/18 05:57 Carbon Dioxide 34.0 mmol/L (21.0-32.0) H 09/26/18 05:57 5 (5-15) 09/26/18 05:57 BUN 42 mg/dL (7-18) H 09/26/18 05:57 1.07 mg/dL (0.55-1.02) H 09/26/18 05:57 Est GFR (MDRD) Af Amer 65 mL/min (>60) 09/26/18 05:57 Est GFR (MDRD) Non-Af 54 mL/min (>60) L 09/26/18 05:57 39.3 RATIO (10-20) H 09/26/18 05:57 Glucose 183 mg/dL (74-106) H 09/26/18 05:57 Assessment/Plan: 1) Pain: Acetaminophen 1000mg po q8h prn for mild pain, Tramadol 50mg po q8h prn for moderate pain. Please continue to monitor for increased/decreased pain. 2) DVT prophylaxis: Lovenox 40mg subq daily. Pt's SrCr is 1.07, CrCl is 36, and Plt count is 259. Please continue to monitor. Please continue to monitor for signs/symptoms of bleeding/clot 3) Hyperlipidemia: Atorvastatin 40mg po qhs. Please continue to monitor LFTs and Lipid panel at least yearly. Thanks 4) GERD: Pantoprazole 40mg po daily. Please continue to monitor for signs/symptoms of GERD 5) Hypomagnesemia: Magox 400mg po daily. Pts last magnesium level was 1.9. Please continue to monitor 6) Nausea: Ondansetron 4mg po q8h prn for nausea. Please continue to monitor prn usage for and for signs/symptoms of increased/decreased nausea 7) OAB: Oxybutynin 5mg po tid. Oxybutynin is on the BEERS list. It is recommended to avoid in older adults with or at high risk of delirium because of the potential of inducing or worsening delirium. please continue to monitor. 8) Allergic Rhinitis: Singulair 10mg po qhs, Flonase 2 sprays nasally at bedtime. Please continue to monitor signs/symptoms of allergic rhinitis. 9) COPD: Fluticasone/Salmeterol 232/14 1 puff po q12h, Albuterol nebs 2.5mg per nebulizer q6h prn sob/wheezing, Incruse ellipta 1 puff po daily. Please continue to have pt rinse and gargle after each dose of Fluticasone/Salmeterol to help avoid thrush. 10) Diabetes: Lantus 15 units subq bid, Humalog 8 units subq with breakfast, 9 units with lunch, 12 units with dinner, Victoza titration to 1.8mg daily. The average of the last 10 bs readings is 166.3. Please continue to monitor. Pt's weight has increased since starting Victoza. Please continue to monitor. 11) Hypothyroidism: Levothyroxine 25mcg po daily. Pts TSH was 0.68 on 11/2017. Please continue to monitor 12) Right sided Heart Failure: Metoprolol Succinate 50mg po bid, Lisinopril 40mg daily. Pt's K+ is 5.1, BUN is 42, CrCl is 36. Please continue to monitor. Pt's weight is slowing increasing from 104kg to 106kg. Please continue to monitor. Psychotropic Medications: Sertraline 200mg po qhs for depression. Medication will require a GDR 03/2019 unless clinically contraindicated Trazodone 150mg po qhs for insomnia. Medication will require a GDR 01/2019 unless clinically contraindicated Buspar 15mg po bid for anxiety. Medication will require a GDR by 03/2019 unless clinically contraindicated. Unnecessary Medications: none *Bowel Regimen: Bisacodyl 10mg po daily prn constipation, Miralax 17gm po daily, Senna/Docusate 1 tablet po bid. Pt has refused 6 of 12 possible Miralax doses. Please consider making prn. thanks Date of Note:: 09/30/18 - Provider Comments Provider responsibility: Provider responsible to enter orders to implement recommendations <Shaun Damian Chi - Last Filed: 09/30/18 13:18> Progress Note - Pharmacy Subjective: [] Objective: Allergies adhesive Allergy (Verified 09/15/18 15:46) Itching adhesive tape Allergy (Verified 09/15/18 15:46) Rash amoxicillin trihydrate [From Augmentin] Allergy (Verified 09/15/18 15:46) Hives Iodinated Contrast- Oral and IV Dye Allergy (Verified 09/15/18 15:46) Shortness of breath latex Allergy (Verified 09/15/18 15:46) Rash Latex, Natural Rubber Allergy (Verified 09/15/18 15:46) Rash metronidazole [From Flagyl] Allergy (Verified 09/15/18 15:46) Hives Metronidazole HCl [From Flagyl] Allergy (Verified 09/15/18 15:46) Hives Penicillins [PCN] Allergy (Verified 09/15/18 15:46) Hives potassium clavulanate [From Augmentin] Allergy (Verified 09/15/18 15:46) Hives sulfamethoxazole [From Bactrim] Allergy (Verified 09/15/18 15:46) Hives hives trimethoprim [From Bactrim] Allergy (Verified 09/15/18 15:46) Hives hives diphenhydramine HCl [From Benadryl] Adverse Reaction (Verified 09/15/18 15:46) i could crawl to the ceiling i could crawl the ceiling omeprazole Adverse Reaction (Verified 09/15/18 15:46) Nausea promethazine HCl [From Phenergan] Adverse Reaction (Verified 09/15/18 15:46) Nausea antihistamine Allergy (Uncoded 09/15/18 15:46) i could crawl to the ceiling crawl the ceiling Current Medications Generic Name Dose Route Start Last Admin Trade Name Freq PRN Reason Stop Dose Admin Acetaminophen 1,000 mg 09/18/18 22:26 09/30/18 07:00 Tylenol PO 1,000 mg Q8H PRN PRN Administration MILD PAIN (1-3/10) Albuterol Sulfate 2.5 mg 09/25/18 09:35 09/26/18 06:30 Ventolin Aerosols INHALATION 2.5 mg Q6H PRN PRN Administration sob/wheezing Atorvastatin Calcium 40 mg 09/18/18 22:00 09/29/18 22:57 Lipitor PO 40 mg QHS DANIELLE Administration Bisacodyl 10 mg 09/18/18 17:07 09/30/18 06:09 Dulcolax PO 10 mg DAILY PRN PRN Administration Constipation Buspirone HCl 15 mg 09/18/18 18:00 09/30/18 05:59 Buspar PO 15 mg BID DANIELLE Administration Emollient Ointment 1 applic 09/23/18 22:00 09/29/18 23:00 Eucerin Intensive Repair TOPICAL 1 applicatio QHS DANIELLE Administration Protocol Enoxaparin Sodium 40 mg 09/19/18 06:00 09/30/18 06:00 Lovenox SC 40 mg DAILY@0600 DANIELLE Administration Fluticasone Propionate 2 spray 09/18/18 22:00 09/29/18 22:53 Flonase Nasal [place] NASAL 2 spray QHS DANIELLE Administration Heparin Sodium (Beef Lung) 50 units 09/18/18 20:15 09/28/18 22:19 IV 50 units UD PRN Administration HEPARIN FLUSH Insulin Glargine 15 units 09/18/18 18:30 09/30/18 06:15 Lantus ([facility]) SC 15 units BID DANIELLE Administration Insulin Human Lispro 8 unit 09/19/18 08:00 09/30/18 09:10 Humalog Kwikpen ([facility]) SC 8 units BREAKFAST DANIELLE Administration Insulin Human Lispro 9 unit 09/19/18 12:00 09/30/18 12:35 Humalog Kwikpen ([facility]) SC 9 u LUNCH DANIELLE Administration Insulin Human Lispro 12 unit 09/18/18 17:00 09/29/18 17:27 Humalog Kwikpen ([facility]) SC 12 units DINNER DANIELLE Administration Levofloxacin 500 mg 09/27/18 06:00 09/30/18 05:59 Levaquin Tablet PO 10/02/18 06:01 500 mg DAILY@0600 DANIELLE Administration Levothyroxine Sodium 25 mcg 09/19/18 06:00 09/30/18 05:59 Synthroid PO 25 mcg DAILY DANIELLE Administration Lisinopril 40 mg 09/19/18 06:00 09/30/18 05:59 Zestril PO 40 mg DAILY DANIELLE Administration Magnesium Oxide 400 mg 09/19/18 06:00 09/30/18 06:00 Mag-Ox 400 PO 400 mg DAILY DANIELLE Administration Metoprolol Succinate 50 mg 09/18/18 18:00 09/30/18 05:58 Toprol Xl (Beta Gisel) PO 50 mg BID DANIELLE Administration Montelukast Sodium 10 mg 09/18/18 22:00 09/29/18 22:57 Singulair PO 10 mg QHS DANIELLE Administration Multivitamins 1 tablet 09/19/18 08:00 09/30/18 09:10 Multivitamin PO 1 tablet DAILY@0800 DANIELLE Administration Nystatin 1 applic 09/18/18 16:59 09/23/18 22:54 Mycostatin Powder TOPICAL 1 applicatio 4X/DAY PRN Administration IRRITATION Protocol Ondansetron HCl 4 mg 09/18/18 16:59 Zofran Odt PO Q8H PRN PRN NAUSEA Oxybutynin Chloride 5 mg 09/18/18 22:00 09/30/18 12:37 Ditropan PO 5 mg TID COUNT INCLUDES THE [facility] Administration Pantoprazole Sodium 40 mg 09/18/18 18:00 09/30/18 05:59 Protonix PO 40 mg BID DANIELLE Administration Polyethylene Glycol 17 gm 09/19/18 06:00 09/30/18 05:59 Miralax PO 17 gm DAILY DANIELLE Administration Pregabalin 50 mg 09/18/18 22:00 09/30/18 12:42 Lyrica PO 50 mg TID DANIELLE Administration Fluticasone/Salmeterol 1 puff 09/19/18 06:00 09/30/18 05:58 Fluticasone-Salmeterol 232-14 IH 1 puff Q12 DANIELLE Administration Senna/Docusate Sodium 1 tablet 09/19/18 06:00 09/30/18 05:59 Senokot-S, Josephine-Colace PO 1 tablet BID DANIELLE Administration Sertraline HCl 200 mg 09/18/18 22:00 09/29/18 22:58 Zoloft PO 200 mg QHS DANIELLE Administration Sodium Chloride 10 - 40 ml 09/18/18 20:15 09/28/18 22:18 IV 10 ml UD PRN Administration R PORT FLUSH Tramadol HCl 50 mg 09/19/18 15:31 09/30/18 09:10 Ultram PO 50 mg Q8H PRN PRN Administration MODERATE PAIN (4-5/10) Trazodone HCl 150 mg 09/18/18 22:00 09/29/18 22:57 Desyrel PO 150 mg QHS DANIELLE Administration Problem List (Last Reviewed 09/16/18 @ 00:31 by Feli Dean DO) Lumbar spinal stenosis (Chronic) Obstructive sleep apnea (Chronic) Type 2 diabetes mellitus with diabetic polyneuropathy (Chronic) Tinea unguium (Chronic) Toe pain, right (Chronic) Toe pain, left (Chronic) Vital Signs Temp Pulse Resp BP Pulse Ox 98.0 F 77 17 125/62 H 96 09/29/18 16:00 09/30/18 05:58 09/29/18 16:00 09/30/18 05:58 09/30/18 03:55 Oxygen Flow Rate (L/min) 3 Oxygen Delivery Method Nasal Cannula Weight: 106.141 kg Body Mass Index (BMI) 43.2 Finger Stick Blood Glucose 204 Sodium 142 mmol/L (136-145) 09/26/18 05:57 Potassium 5.1 mmol/L (3.5-5.1) 09/26/18 05:57 Chloride 103 mmol/L (98-107) 09/26/18 05:57 Carbon Dioxide 34.0 mmol/L (21.0-32.0) H 09/26/18 05:57 5 (5-15) 09/26/18 05:57 BUN 42 mg/dL (7-18) H 09/26/18 05:57 1.07 mg/dL (0.55-1.02) H 09/26/18 05:57 Est GFR (MDRD) Af Amer 65 mL/min (>60) 09/26/18 05:57 Est GFR (MDRD) Non-Af 54 mL/min (>60) L 09/26/18 05:57 39.3 RATIO (10-20) H 09/26/18 05:57 Glucose 183 mg/dL (74-106) H 09/26/18 05:57 Assessment/Plan: Psychotropic Medications: Unnecessary Medications: Bowel Regimen: - Provider Comments Provider responsibility: Provider responsible to enter orders to implement recommendations Provider Comments to Recommendations by Pharmacy: Agree
--- NOTE | 2018-09-30 09:03 | CASEMGMT ---
Insurance continued stay approved with next update due on 10/06. Auth # [id number] KAM Apodaca
[2018-09-30] MEDS: Multivitamins,Therapeutic Tablet 1 TABLET PO (09:10)
[2018-09-30] MEDS: Insulin Lispro 100 UNIT/ML INSULN.PEN 8 UNIT SC (09:10)
[2018-09-30] MEDS: traMADol 50 MG Tablet PO ×2 (09:10→22:31)
[2018-09-30 11:31] LABS: Bedside Glucose 176 mg/dL (70-110)
[2018-09-30] MEDS: Insulin Lispro 100 UNIT/ML INSULN.PEN 9 UNIT SC (12:35)
--- NOTE | 2018-09-30 14:26 | CASEMGMT ---
Social Work Notified pt insurance approved continued stay. Next review date is 10/06. Pt improving medically and physically. Spoke with Caitie Carbajal to begin working on securing aides for pt to return home. Spoke with [facility] to order pt a new BIPAP machine, per her request. Will continue to follow. LUIS Priest FORGING MACHINE HAND
[2018-09-30 15:04] VITALS: BP 106/51; PULSE 72; RESP 20; TEMP 36.7; O2SAT 98
[2018-09-30 17:06] LABS: Bedside Glucose 113 mg/dL (70-110)
[2018-09-30 17:54] VITALS: BP 106/51; PULSE 72
[2018-09-30] MEDS: Insulin Lispro 100 UNIT/ML INSULN.PEN 12 UNIT SC (17:55)
[2018-09-30 21:06] LABS: Bedside Glucose 142 mg/dL (70-110)
[2018-09-30] MEDS: Fluticasone 0.05% 1 SPRAY NASAL.SRY 2 SPRAY NASAL (22:25)
[2018-09-30] MEDS: Sertraline 100 MG Tablet 200 MG PO (22:26)
[2018-09-30] MEDS: Montelukast 10 MG Tablet PO (22:26)
[2018-09-30] MEDS: traZODone 100 MG Tablet 150 MG PO (22:26)
[2018-09-30] MEDS: Atorvastatin Calcium 40 MG Tablet PO (22:26)
[2018-10-01] MEDS: Acetaminophen 500 MG Tablet 1000 MG PO (06:01)
[2018-10-01] MEDS: Pregabalin 50 MG Capsule PO ×3 (06:02→22:52)
[2018-10-01] MEDS: Umeclidinium Bromide Inhaler 1 PUFF IH (06:02)
[2018-10-01 06:03] VITALS: BP 137/76; PULSE 72
[2018-10-01] MEDS: Metoprolol(XL)Succ 50 MG Tablet PO ×2 (06:03→17:57)
[2018-10-01] MEDS: Fluticasone/Salmeterol 232-14 Inhaler 1 PUFF IH ×2 (06:03→18:01)
[2018-10-01] MEDS: Levothyroxine 25 MCG TABLET PO (06:04)
[2018-10-01] MEDS: busPIRone 15 MG TABLET PO ×2 (06:04→17:57)
[2018-10-01] MEDS: Magnesium Oxide 400 MG Tablet PO (06:04)
[2018-10-01] MEDS: Oxybutynin 5 MG Tablet PO ×3 (06:04→22:53)
[2018-10-01] MEDS: Enoxaparin 40 MG/0.4 ML Syringe SC (06:04)
[2018-10-01] MEDS: Pantoprazole Sodium 40 MG Tablet PO ×2 (06:04→17:57)
[2018-10-01] MEDS: Lisinopril 40 MG Tablet PO (06:05)
[2018-10-01] MEDS: levoFLOXacin 500 MG Tablet PO (06:05)
[2018-10-01 06:31] LABS: Bedside Glucose 149 mg/dL (70-110)
--- NOTE | 2018-10-01 07:42 | MDS.RN ---
Information for the mds was obtained from review of the clinical record, interview of resident, staff, and direct observation of resident's care.
[2018-10-01 07:54] VITALS: O2SAT 95
[2018-10-01] MEDS: Multivitamins,Therapeutic Tablet 1 TABLET PO (08:31)
[2018-10-01] MEDS: Insulin Lispro 100 UNIT/ML INSULN.PEN 8 UNIT SC (08:31)
[2018-10-01] MEDS: Furosemide 40 MG Tablet PO ×2 (08:34→17:57)
--- NOTE | 2018-10-01 08:37 | NURSING ---
pt c/o trouble swallowing last 2 yrs but worse here. speech consulted
--- NOTE | 2018-10-01 08:37 | NURSING ---
pt noted to have some wt gain, history CHF. Dr pearson updated, new order to restart lasix
[2018-10-01 11:20] LABS: Bedside Glucose 153 mg/dL (70-110)
--- NOTE | 2018-10-01 11:38 | NURSING ---
Addendum entered by Feli Feliz 10/01/18 11:48: clarified orders below, ok to continue [facility] therapeutic interchange inhaler while here in hospital. Original Note: pt returned from Pulmonary appt, New orders to Jennifer Evans 1 puff daily, follow up with DR Abraham.
[2018-10-01] MEDS: Insulin Lispro 100 UNIT/ML INSULN.PEN 9 UNIT SC (11:57)
--- NOTE | 2018-10-01 12:29 | CASEMGMT ---
Social Work Palliative Care spoke with patient about starting services and following upon DC - pt agreed and admitted to services. Will continue to follow. Veronica Scales, FRONT OFFICE DIRECTOR BRAZING MACHINE OPERATOR
[2018-10-01] MEDS: Ondansetron ODT 4 MG Tablet PO (14:30)
[2018-10-01] MEDS: traMADol 50 MG Tablet PO (15:21)
[2018-10-01 15:37] VITALS: BP 99/49; PULSE 81; RESP 18; TEMP 36.8; O2SAT 96
[2018-10-01 16:46] LABS: Bedside Glucose 113 mg/dL (70-110)
[2018-10-01 17:57] VITALS: BP 120/61; PULSE 74
[2018-10-01] MEDS: Insulin Lispro 100 UNIT/ML INSULN.PEN 12 UNIT SC (17:58)
--- NOTE | 2018-10-01 18:05 | NURSING ---
Emesis after lunch and now again after eating supper. Reports that she burps and food comes up. ST evaluated her today. Started on carafate and first dose will be given this evening on an empty stomach. Resident aware and agreeable.
[2018-10-01 21:31] LABS: Bedside Glucose 148 mg/dL (70-110)
[2018-10-01] MEDS: Fluticasone 0.05% 1 SPRAY NASAL.SRY 2 SPRAY NASAL (22:51)
[2018-10-01] MEDS: Sucralfate 1 GM Tablet PO (22:52)
[2018-10-01] MEDS: Atorvastatin Calcium 40 MG Tablet PO (22:53)
[2018-10-01] MEDS: traZODone 100 MG Tablet 150 MG PO (22:53)
[2018-10-01] MEDS: Sertraline 100 MG Tablet 200 MG PO (22:53)
[2018-10-01] MEDS: Montelukast 10 MG Tablet PO (22:54)
[2018-10-02] MEDS: Fluticasone/Salmeterol 232-14 Inhaler 1 PUFF IH ×2 (06:30→16:49)
[2018-10-02] MEDS: Umeclidinium Bromide Inhaler 1 PUFF IH (06:30)
[2018-10-02] MEDS: Acetaminophen 500 MG Tablet 1000 MG PO (06:35)
[2018-10-02] MEDS: Pregabalin 50 MG Capsule PO ×3 (06:35→22:27)
[2018-10-02] MEDS: Lisinopril 40 MG Tablet PO (06:36)
[2018-10-02] MEDS: Oxybutynin 5 MG Tablet PO ×3 (06:36→22:28)
[2018-10-02] MEDS: Sucralfate 1 GM Tablet PO ×4 (06:36→22:28)
[2018-10-02] MEDS: Enoxaparin 40 MG/0.4 ML Syringe SC (06:36)
[2018-10-02] MEDS: busPIRone 15 MG TABLET PO ×2 (06:37→16:49)
[2018-10-02] MEDS: levoFLOXacin 500 MG Tablet PO (06:37)
[2018-10-02 06:38] VITALS: BP 130/50; PULSE 75
[2018-10-02] MEDS: Metoprolol(XL)Succ 50 MG Tablet PO ×2 (06:38→16:51)
[2018-10-02] MEDS: Senna/Docusate Sodium 1 Tablet PO ×2 (06:39→16:50)
[2018-10-02] MEDS: Pantoprazole Sodium 40 MG Tablet PO ×2 (06:40→16:50)
[2018-10-02] MEDS: Levothyroxine 25 MCG TABLET PO (06:40)
[2018-10-02] MEDS: Magnesium Oxide 400 MG Tablet PO (06:40)
[2018-10-02 07:11] LABS: Bedside Glucose 151 mg/dL (70-110)
[2018-10-02 07:44] VITALS: O2SAT 95
[2018-10-02] MEDS: Multivitamins,Therapeutic Tablet 1 TABLET PO (08:10)
[2018-10-02] MEDS: Insulin Lispro 100 UNIT/ML INSULN.PEN 8 UNIT SC (08:10)
[2018-10-02] MEDS: Furosemide 40 MG Tablet PO ×2 (08:10→16:50)
[2018-10-02 11:06] LABS: Bedside Glucose 190 mg/dL (70-110)
[2018-10-02] MEDS: Insulin Lispro 100 UNIT/ML INSULN.PEN 9 UNIT SC (12:02)
--- NOTE | 2018-10-02 12:36 | CASEMGMT ---
Addendum entered by Veronica Scales 10/03/18 13:09: [facility]. Plan: DC home with skilled and nonskilled HHC 10/08. Original Note: Social Work Spoke with patient about IDT agreeable to requested DC date of 10/08. Pt stabilized and safe to return home. Recommending HHC PT/OT. No DME needs. Working with [facility] and [facility] for a new hose for her BIPAP - awaiting insurance verification. Contacted Caitie Carbajal to f/u on securing nonskilled HHC. Scheduled f/u appt at [facility] for 10/22 at 8 am. Notified Palliative Care of DC date. LUIS PriestW
[2018-10-02 12:39] VITALS: BP 103/47; PULSE 74; RESP 22; O2SAT 95
[2018-10-02 13:01] LABS: Bedside Glucose 174 mg/dL (70-110)
[2018-10-02 16:00] VITALS: BP 117/62; PULSE 68; RESP 20; TEMP 36.5; O2SAT 98
[2018-10-02 16:51] VITALS: BP 117/62; PULSE 68
[2018-10-02 17:06] LABS: Bedside Glucose 147 mg/dL (70-110)
[2018-10-02] MEDS: Insulin Lispro 100 UNIT/ML INSULN.PEN 12 UNIT SC (17:46)
[2018-10-02 21:26] LABS: Bedside Glucose 176 mg/dL (70-110)
[2018-10-02] MEDS: traMADol 50 MG Tablet PO (22:27)
[2018-10-02] MEDS: Fluticasone 0.05% 1 SPRAY NASAL.SRY 2 SPRAY NASAL (22:27)
[2018-10-02] MEDS: Atorvastatin Calcium 40 MG Tablet PO (22:28)
[2018-10-02] MEDS: traZODone 100 MG Tablet 150 MG PO (22:28)
[2018-10-02] MEDS: Montelukast 10 MG Tablet PO (22:29)
[2018-10-02] MEDS: Sertraline 100 MG Tablet 200 MG PO (22:29)
[2018-10-03 02:27] VITALS: O2SAT 97
[2018-10-03] MEDS: Acetaminophen 500 MG Tablet 1000 MG PO (05:59)
[2018-10-03] MEDS: Pregabalin 50 MG Capsule PO ×3 (05:59→22:52)
[2018-10-03] MEDS: Fluticasone/Salmeterol 232-14 Inhaler 1 PUFF IH ×2 (06:00→16:52)
[2018-10-03] MEDS: Umeclidinium Bromide Inhaler 1 PUFF IH (06:00)
[2018-10-03] MEDS: Levothyroxine 25 MCG TABLET PO (06:01)
[2018-10-03] MEDS: Oxybutynin 5 MG Tablet PO ×3 (06:01→22:52)
[2018-10-03 06:02] VITALS: BP 124/62; PULSE 72
[2018-10-03] MEDS: Magnesium Oxide 400 MG Tablet PO (06:02)
[2018-10-03] MEDS: busPIRone 15 MG TABLET PO ×2 (06:02→16:53)
[2018-10-03] MEDS: Enoxaparin 40 MG/0.4 ML Syringe SC (06:02)
[2018-10-03] MEDS: Metoprolol(XL)Succ 50 MG Tablet PO ×2 (06:02→16:53)
[2018-10-03] MEDS: Pantoprazole Sodium 40 MG Tablet PO ×2 (06:02→16:53)
[2018-10-03 06:03] LABS: Absolute Lymphocyte Count 1.48 X10^3/uL (0.83-4.51); Absolute Neutrophil Count 7.6 X10^3/uL (2.0-7.7); Basophil# 0.04 X10^3/uL; Basophil% 0.4 % (0-1); Eosinophil# 0.22 X10^3/uL; Eosinophils% 2.2 % (0-5); Hematocrit 36.6 % (37-47); Hemoglobin 11.7 g/dL (12.0-15.0); Lymphocyte # 1.48 X10^3/ul (4.0); Lymphocyte % 14.9 % (19-41); Mean Corpuscular Hgb 29.1 pg (27.0-32.0); Monocyte# 0.51 X10^3/uL; Monocyte% 5.1 % (0-10); Neutrophil # 7.62 X10^3/uL (2.7-7.7); Neutrophil % 76.7 % (47-70); Platelet Count 174 K/mm3 (150-450); RBC Distribution Width CV 14.2 % (11.6-14.6); RBC Distribution Width SD 47.4 fl (35.1-43.9); Red Blood Count 4.02 M/mm3 (4.2-5.4); White Blood Count 9.9 K/mm3 (4.4-11.0)
[2018-10-03] MEDS: Sucralfate 1 GM Tablet PO ×4 (06:03→22:52)
[2018-10-03] MEDS: Lisinopril 10 MG Tablet PO (06:12)
[2018-10-03 06:16] LABS: Bedside Glucose 145 mg/dL (70-110)
[2018-10-03 06:26] LABS: Anion Gap 9 (5-15); BUN 36 mg/dL (7-18); BUN/Creat Ratio 40.8 RATIO (10-20); Calcium,Total 8.6 mg/dL (8.5-10.1); Chloride 107 mmol/L (98-107); Creatinine, Serum 0.88 mg/dL (0.55-1.02); EST Glomerular Filtration Rate 67 mL/min (>60); Est Glom Filt Rate - Afr Amer 81 mL/min (>60); Estimated Creatinine Clearance 43.61 ml/min; Glucose 124 mg/dL (74-106); Potassium 4.6 mmol/L (3.5-5.1); Sodium Level 143 mmol/L (136-145)
[2018-10-03] MEDS: Insulin Lispro 100 UNIT/ML INSULN.PEN 8 UNIT SC (08:58)
[2018-10-03] MEDS: Furosemide 40 MG Tablet PO ×2 (08:58→16:52)
[2018-10-03] MEDS: Multivitamins,Therapeutic Tablet 1 TABLET PO (08:58)
[2018-10-03] MEDS: traMADol 50 MG Tablet PO (11:11)
[2018-10-03 11:25] LABS: Bedside Glucose 131 mg/dL (70-110)
[2018-10-03] MEDS: Insulin Lispro 100 UNIT/ML INSULN.PEN 9 UNIT SC (11:52)
[2018-10-03 15:19] VITALS: BP 102/54; PULSE 68; RESP 18; TEMP 36.5; O2SAT 96
--- NOTE | 2018-10-03 15:22 | PCM.DC ---
- Discharge Diagnoses Current Active Problems: Current Active and Chronic Problems (Last Reviewed 10/01/18 @ 10:06 by HEBERT Gross) Lumbar spinal stenosis (Chronic) Obstructive sleep apnea (Chronic) Type 2 diabetes mellitus with diabetic polyneuropathy (Chronic) Tinea unguium (Chronic) Toe pain, right (Chronic) Toe pain, left (Chronic) You will use the following diet at home:: No restrictions, Regular Your food should be the consistency of: Regular Your liquids should be the consistency of: Regular/Thin Discharge Activity: Return to Normal Activity, May Shower, Use Walker Weight Bearing Status: Weight bearing as tolerated Call your doctor if you observe: Fever of 101 or Higher, Inability to urinate, Inability to have a bowel movement, Shortness of breath, Chest pain, Uncontrolled pain Allergies/Adverse Reactions: Allergies adhesive Allergy (Verified 10/01/18 09:47) Itching adhesive tape Allergy (Verified 10/01/18 09:47) Rash amoxicillin trihydrate [From Augmentin] Allergy (Verified 10/01/18 09:47) Hives Iodinated Contrast- Oral and IV Dye Allergy (Verified 10/01/18 09:47) Shortness of breath latex Allergy (Verified 10/01/18 09:47) Rash Latex, Natural Rubber Allergy (Verified 10/01/18 09:47) Rash metronidazole [From Flagyl] Allergy (Verified 10/01/18 09:47) Hives Metronidazole HCl [From Flagyl] Allergy (Verified 10/01/18 09:47) Hives Penicillins [PCN] Allergy (Verified 10/01/18 09:47) Hives potassium clavulanate [From Augmentin] Allergy (Verified 10/01/18 09:47) Hives sulfamethoxazole [From Bactrim] Allergy (Verified 10/01/18 09:47) Hives hives trimethoprim [From Bactrim] Allergy (Verified 10/01/18 09:47) Hives hives diphenhydramine HCl [From Benadryl] Adverse Reaction (Verified 10/01/18 09:47) i could crawl to the ceiling i could crawl the ceiling omeprazole Adverse Reaction (Verified 10/01/18 09:47) Nausea promethazine HCl [From Phenergan] Adverse Reaction (Verified 10/01/18 09:47) Nausea antihistamine Allergy (Uncoded 10/01/18 09:47) i could crawl to the ceiling crawl the ceiling Medications to take at Discharge Albuterol Inhaler [Ventolin Hfa] 2 puff INHALATION Q6H PRN PRN 06/29/14 Levothyroxine [Synthroid] 25 mcg PO DAILY 06/29/14 Montelukast [Singulair] 10 mg PO QHS 06/29/14 Pantoprazole Sodium [Protonix] 40 mg PO BID 06/29/14 Sertraline HCl [Zoloft] 200 mg PO QHS 06/29/14 Albuterol Aerosols [Ventolin Aerosols] 2.5 mg INHALATION Q4H PRN PRN 08/20/14 Insulin Detemir [Levemir FlexPen] 15 units SUBCUT BID 01/26/15 Atorvastatin Calcium [Lipitor] 40 mg PO DAILY 09/18/15 Fluticasone 0.05% [Flonase Nasal [place]] 2 spray NASAL QHS 09/18/15 Pregabalin [Lyrica] 50 mg PO TID 09/18/15 traZODone [Desyrel] 150 mg PO QHS 11/26/16 Lisinopril [Zestril] 40 mg PO DAILY 10/11/17 Multivitamin [Multiple Vitamins] 1 tab PO DAILY 10/11/17 Insulin Lispro [Humalog KwikPen] 8 unit SQ BREAKFAST 11/18/17 Insulin Lispro [Humalog KwikPen] 12 unit SQ DINNER 11/18/17 Magnesium Oxide [Magnesium] 400 mg PO DAILY 11/18/17 Nystatin Powder [Mycostatin Powder] 1 applic TOPICAL 4X/DAY PRN 03/31/18 busPIRone [Buspar] 15 mg PO BID 07/29/18 Oxybutynin [Ditropan] 5 mg PO TID 09/12/18 Fluticasone/Umeclidin/Vilanter [Trelegy Ellipta 100-62.5-25] 1 puff INHALATION DAILY 09/15/18 Furosemide 80 mg PO BID 09/15/18 Metoprolol Succinate 50 mg PO BID 09/15/18 Insulin Lispro [Humalog KwikPen] 9 units SQ LUNCH 09/18/18 Liraglutide [Victoza 2-Yan] 1.8 mg SQ DAILY #0 09/18/18 Menthol/Lanolin/Calamine/Znox [Calmoseptine Ointment] 1 applic TOPICAL 4X/DAY 09/18/18 Acetaminophen [Tylenol] 1,000 mg PO Q8H PRN PRN tab 10/03/18 Balsam [place] Oil [Venelex Ointment] 0 gm TP BID@0600,2000 oint...g. 10/03/18 Furosemide [Lasix] 40 mg PO BID@1000,1800 #60 tab 10/03/18 Liraglutide [Victoza] 1.8 mg SQ DAILY pen.injctr 10/03/18 Peg 400/Hypromellose/Glycerin [Artificial Tears] 2 drp EACH EYE Q1H PRN bottle 10/03/18 Sucralfate [Carafate] 1 gm PO 1HR_ACHS #120 tab 10/03/18 traMADol [Ultram] 50 mg PO Q8H PRN PRN 7 Days #21 tab 10/03/18 The following prescriptions were given: Sucralfate [Carafate] 1 gm PO 1HR_ACHS #120 tab Prescription Printed Furosemide [Lasix] 40 mg PO BID@1000,1800 #60 tab Prescription Printed traMADol [Ultram] 50 mg PO Q8H PRN PRN 7 Days #21 tab PRN Reason: Moderate Pain (4-5/10) Prescription Printed Primary Care Physician: Zabrina Bain MD [Primary Care Provider] - Please follow up with your Primary Care Physician in: 1 week. Test Results: Test results from this visit will be discussed in further detail at your follow-up appointment, if applicable. Please Follow Up With: Dr. Mayfield When: 2 weeks Please Follow Up With: [facility] [place] When: 2 weeks. Please Follow Up With: Dallas Abraham MD When: 2 weeks. Please Follow Up With: [facility] When: 2 weeks. Proposed Discharge Date: 10/08/18
--- NOTE | 2018-10-03 15:24 | DS.PCM_ITS ---
Discharge Date and Diagnosis Date of Admission: 09/18/18 Date of Discharge: 10/08/18 - Secondary Discharge Diagnosis Chronic Problems (Last Reviewed 10/01/18 @ 10:06 by JAKOB GrossC) Pulmonary HTN (Chronic) Lumbar spinal stenosis (Chronic) Obstructive sleep apnea (Chronic) Type 2 diabetes mellitus with diabetic polyneuropathy (Chronic) Tinea unguium (Chronic) Toe pain, right (Chronic) Toe pain, left (Chronic) Morbid obesity (Chronic) Chronic obstructive pulmonary disease (Chronic) IBS (irritable bowel syndrome) (Chronic) Degeneration of intervertebral disc of lumbosacral region (Chronic) Radiculopathy of lumbosacral region (Chronic) Spinal stenosis of lumbosacral region (Chronic) Primary osteoarthritis of right hip (Chronic) Spondylosis of lumbosacral region without myelopathy or radiculopathy (Chronic) Nonrheumatic aortic valve stenosis (Chronic) Nonrheumatic mitral valve insufficiency (Chronic) Heart failure (Chronic) Non Hodgkin's lymphoma (Chronic) Anxiety (Chronic) Depression (Chronic) Hypertension (Chronic) Hyperlipidemia (Chronic) Chronic respiratory failure (Chronic) copd 3 liters continuous Hypothyroidism (Chronic) GERD (gastroesophageal reflux disease) (Chronic) Diabetes mellitus, type II (Chronic) Benign essential HTN (Chronic) Sleep apnea (Chronic) Fatty liver disease, nonalcoholic (Chronic) Sjogren's syndrome (Chronic) Diverticulosis (Chronic) Mild aortic stenosis (Chronic) Hospital Course and Treatment Imaging Results: 09/24/18 15:55 Diet: Cardiac: Calorie-Controlled Food consistency:: Regular Liquid Consistency:: Regular/Thin Is pt able to select menu?: Yes How many daily calories?: 1800 calorie Labs (Last 48 Hours) 10/01/18 10/01/18 10/02/18 16:39 21:20 06:18 WBC RBC Hgb Hct MCV MCH MCHC RDW Std Deviation RDW Coeff of Camilla Plt Count MPV Immature Gran % (Auto) Neut % (Auto) Lymph % (Auto) [place] % (Auto) Eos % (Auto) Baso % (Auto) Absolute Neuts (auto) Absolute Lymphs (auto) Total Counted Sodium Potassium Chloride Carbon Dioxide Anion Gap BUN Creatinine Estim Creat Clear Calc Est GFR (MDRD) Af Amer Est GFR (MDRD) Non-Af BUN/Creatinine Ratio Glucose Calcium POC Glucose 113 H 148 H 151 H 10/02/18 10/02/18 10/02/18 10:49 12:51 16:56 WBC RBC Hgb Hct MCV MCH MCHC RDW Std Deviation RDW Coeff of Camilla Plt Count MPV Immature Gran % (Auto) Neut % (Auto) Lymph % (Auto) [place] % (Auto) Eos % (Auto) Baso % (Auto) Absolute Neuts (auto) Absolute Lymphs (auto) Total Counted Sodium Potassium Chloride Carbon Dioxide Anion Gap BUN Creatinine Estim Creat Clear Calc Est GFR (MDRD) Af Amer Est GFR (MDRD) Non-Af BUN/Creatinine Ratio Glucose Calcium POC Glucose 190 H 174 H 147 H 10/02/18 10/03/18 10/03/18 21:16 05:56 05:56 WBC 9.9 RBC 4.02 L Hgb 11.7 L Hct 36.6 L MCV 91.0 MCH 29.1 MCHC 32.0 RDW Std Deviation 47.4 H RDW Coeff of Camilla 14.2 Plt Count 174 MPV 11.0 Immature Gran % (Auto) 0.700 Neut % (Auto) 76.7 H Lymph % (Auto) 14.9 L [place] % (Auto) 5.1 Eos % (Auto) 2.2 Baso % (Auto) 0.4 Absolute Neuts (auto) 7.6 Absolute Lymphs (auto) 1.48 Total Counted Not Reportable Sodium 143 Potassium 4.6 Chloride 107 Carbon Dioxide 27.0 Anion Gap 9 BUN 36 H Creatinine 0.88 Estim Creat Clear Calc 43.61 Est GFR (MDRD) Af Amer 81 Est GFR (MDRD) Non-Af 67 BUN/Creatinine Ratio 40.8 H Glucose 124 H Calcium 8.6 POC Glucose 176 H 10/03/18 10/03/18 06:07 11:16 WBC RBC Hgb Hct MCV MCH MCHC RDW Std Deviation RDW Coeff of Camilla Plt Count MPV Immature Gran % (Auto) Neut % (Auto) Lymph % (Auto) [place] % (Auto) Eos % (Auto) Baso % (Auto) Absolute Neuts (auto) Absolute Lymphs (auto) Total Counted Sodium Potassium Chloride Carbon Dioxide Anion Gap BUN Creatinine Estim Creat Clear Calc Est GFR (MDRD) Af Amer Est GFR (MDRD) Non-Af BUN/Creatinine Ratio Glucose Calcium POC Glucose 145 H 131 H Operations: None Procedures: None Summary of Care Provided: The patient is a 73 year old Female with below past medical history hospitalized for shortness of breath secondary to right sided heart failure, admitted to TCU with debility, here for rehabilitation, strengthening, prior to discharge home alone. Potassium, spironolactone stopped due to hyperkalemia. Discharge home alone, Home Health Care for PT/OT. - Physical Exam Vital Signs Temp Pulse Resp BP Pulse Ox 97.7 F L 68 18 102/54 L 96 10/03/18 15:19 10/03/18 15:19 10/03/18 15:19 10/03/18 15:19 10/03/18 15:19 Oxygen Flow Rate (L/min) 3 Oxygen Delivery Method Nasal Cannula Weight: 105.885 kg Body Mass Index (BMI) 43.2 Finger Stick Blood Glucose 204 Intake and Output for Last 24 Hours 10/01/18 10/02/18 10/03/18 23:59 23:59 23:59 Intake Total 740 / 740 840 / 840 960 / 960 Output Total 200 / 200 Balance 740 / 740 840 / 840 760 / 760 Laboratory Tests Past 24 Hrs 10/03/18 10/03/18 05:56 05:56 WBC 9.9 RBC 4.02 L Hgb 11.7 L Hct 36.6 L MCV 91.0 MCH 29.1 MCHC 32.0 RDW Std Deviation 47.4 H RDW Coeff of Camilla 14.2 Plt Count 174 MPV 11.0 Immature Gran % (Auto) 0.700 Neut % (Auto) 76.7 H Lymph % (Auto) 14.9 L [place] % (Auto) 5.1 Eos % (Auto) 2.2 Baso % (Auto) 0.4 Absolute Neuts (auto) 7.6 Absolute Lymphs (auto) 1.48 Total Counted Not Reportable Sodium 143 Potassium 4.6 Chloride 107 Carbon Dioxide 27.0 Anion Gap 9 BUN 36 H Creatinine 0.88 Estim Creat Clear Calc 43.61 Est GFR (MDRD) Af Amer 81 Est GFR (MDRD) Non-Af 67 BUN/Creatinine Ratio 40.8 H Glucose 124 H Calcium 8.6 POC Glucose 10/03/18 10/03/18 10/02/18 11:16 06:07 21:16 POC Glucose 131 H 145 H 176 H 10/02/18 16:56 POC Glucose 147 H Discharge Diet: No Restrictions Discharge Activity: Return to Normal Activity, May Shower, Use Walker Weight Bearing Status: Weight bearing as tolerated Call your doctor if you observe: Fever of 101 or Higher, Inability to urinate, Inability to have a bowel movement, Shortness of breath, Chest pain, Uncontrolled pain Home Medications: Medications to take at Discharge RX: Albuterol Inhaler [Ventolin Hfa] 2 puff INHALATION Q6H PRN PRN 06/29/14 RX: Levothyroxine [Synthroid] 25 mcg PO DAILY 06/29/14 RX: Montelukast [Singulair] 10 mg PO QHS 06/29/14 RX: Pantoprazole Sodium [Protonix] 40 mg PO BID 06/29/14 RX: Sertraline HCl [Zoloft] 200 mg PO QHS 06/29/14 RX: Albuterol Aerosols [Ventolin Aerosols] 2.5 mg INHALATION Q4H PRN PRN 08/20/14 RX: Insulin Detemir [Levemir FlexPen] 15 units SUBCUT BID 01/26/15 RX: Atorvastatin Calcium [Lipitor] 40 mg PO DAILY 09/18/15 RX: Fluticasone 0.05% [Flonase Nasal [place]] 2 spray NASAL QHS 09/18/15 RX: Pregabalin [Lyrica] 50 mg PO TID 09/18/15 RX: traZODone [Desyrel] 150 mg PO QHS 11/26/16 RX: Lisinopril [Zestril] 40 mg PO DAILY 10/11/17 RX: Multivitamin [Multiple Vitamins] 1 tab PO DAILY 10/11/17 RX: Insulin Lispro [Humalog KwikPen] 8 unit SQ BREAKFAST 11/18/17 RX: Insulin Lispro [Humalog KwikPen] 12 unit SQ DINNER 11/18/17 RX: Magnesium Oxide [Magnesium] 400 mg PO DAILY 11/18/17 RX: Nystatin Powder [Mycostatin Powder] 1 applic TOPICAL 4X/DAY PRN 03/31/18 RX: busPIRone [Buspar] 15 mg PO BID 07/29/18 RX: Oxybutynin [Ditropan] 5 mg PO TID 09/12/18 RX: Fluticasone/Umeclidin/Vilanter [Trelegy Ellipta 100-62.5-25] 1 puff INHALATION DAILY 09/15/18 RX: Furosemide 80 mg PO BID 09/15/18 RX: Metoprolol Succinate 50 mg PO BID 09/15/18 RX: Insulin Lispro [Humalog KwikPen] 9 units SQ LUNCH 09/18/18 RX: Liraglutide [Victoza 2-Yan] 1.8 mg SQ DAILY #0 09/18/18 RX: Menthol/Lanolin/Calamine/Znox [Calmoseptine Ointment] 1 applic TOPICAL 4X/DAY 09/18/18 RX: Acetaminophen [Tylenol] 1,000 mg PO Q8H PRN PRN tab 10/03/18 RX: Balsam [place] Oil [Venelex Ointment] 0 gm TP BID@0600,2000 oint...g. 10/03/18 RX: Furosemide [Lasix] 40 mg PO BID@1000,1800 #60 tab 10/03/18 RX: Liraglutide [Victoza] 1.8 mg SQ DAILY pen.injctr 10/03/18 RX: Peg 400/Hypromellose/Glycerin [Artificial Tears] 2 drp EACH EYE Q1H PRN bottle 10/03/18 RX: Sucralfate [Carafate] 1 gm PO 1HR_ACHS #120 tab 10/03/18 RX: traMADol [Ultram] 50 mg PO Q8H PRN PRN 7 Days #21 tab 10/03/18 Following Prescrptions Were Given to Patient: RX: Sucralfate [Carafate] 1 gm PO 1HR_ACHS #120 tab Prescription Printed RX: Furosemide [Lasix] 40 mg PO BID@1000,1800 #60 tab Prescription Printed RX: traMADol [Ultram] 50 mg PO Q8H PRN PRN 7 Days #21 tab PRN Reason: Moderate Pain (4-5/10) Prescription Printed Primary Care Physician: Zabrina Bain MD [Primary Care Provider] - Please follow up with your Primary Care Physician in: 1 week. Please Follow Up With: Dr. Mayfield When: 2 weeks Please Follow Up With: [facility] When: 2 weeks. Please Follow Up With: Dallas Abraham MD When: 2 weeks. Please Follow Up With: [facility] When: 2 weeks. Disposition: Home with Home Health Patient Condition:: Stable Medical Necessity - Tobacco Use Smoking Status: Former smoker Tobacco Use: Non-smoker Meaningful Use Info Meaningful Use Diagnoses (Choose all that apply): None applicable
--- NOTE | 2018-10-03 15:26 | PCM.PN.HH ---
Home Health Note - Plan Overview of reason of hospitalization: The patient is a 73 year old Female with below past medical history hospitalized for shortness of breath secondary to right sided heart failure, admitted to TCU with debility, here for rehabilitation, strengthening, prior to discharge home alone. Potassium, spironolactone stopped due to hyperkalemia. Discharge home alone, Home Health Care for PT/OT. Problems: Patient was seen for (Last Reviewed 10/01/18 @ 10:06 by HEBERT Gross) Lumbar spinal stenosis (Chronic) Obstructive sleep apnea (Chronic) Type 2 diabetes mellitus with diabetic polyneuropathy (Chronic) Tinea unguium (Chronic) Toe pain, right (Chronic) Toe pain, left (Chronic) Complete List of Medical Problems (Last Reviewed 10/01/18 @ 10:06 by HEBERT Gross) Dyspnea (Acute) Right-sided heart failure (Acute) Pulmonary HTN (Chronic) Lumbar spinal stenosis (Chronic) Obstructive sleep apnea (Chronic) Type 2 diabetes mellitus with diabetic polyneuropathy (Chronic) Tinea unguium (Chronic) Toe pain, right (Chronic) Toe pain, left (Chronic) Morbid obesity (Chronic) Chronic obstructive pulmonary disease (Chronic) IBS (irritable bowel syndrome) (Chronic) Degeneration of intervertebral disc of lumbosacral region (Chronic) Radiculopathy of lumbosacral region (Chronic) Spinal stenosis of lumbosacral region (Chronic) Primary osteoarthritis of right hip (Chronic) Spondylosis of lumbosacral region without myelopathy or radiculopathy (Chronic) Nonrheumatic aortic valve stenosis (Chronic) Nonrheumatic mitral valve insufficiency (Chronic) Heart failure (Chronic) Non Hodgkin's lymphoma (Chronic) Anxiety (Chronic) Depression (Chronic) Hypertension (Chronic) Hyperlipidemia (Chronic) Chronic respiratory failure (Chronic) Hypothyroidism (Chronic) GERD (gastroesophageal reflux disease) (Chronic) Diabetes mellitus, type II (Chronic) Benign essential HTN (Chronic) Sleep apnea (Chronic) Fatty liver disease, nonalcoholic (Chronic) Sjogren's syndrome (Chronic) Diverticulosis (Chronic) Mild aortic stenosis (Chronic) - Requirements and Reasons Disciplines Needed/Ordered: Physical Therapy Reason for Disciplines: Disease Specific Monitoring/education, Medication Management/Knowledge Deficit, Gait Training, Stair Training, Fall Prevention, Home Safety/Equipment Instruction, Balance and/or Posture Training, Transfer Training Related To: Change in Medical Treatment Plan, Limited/Poor Endurance, Shortness of Breath with Activity, Physical Impairments, Unsteady Gait/Balance, Fall Risk Patient is unable to leave the home: Without Aid of Supportive Devices (crutches, cane, wheelchair, walker), Without the assistance of another person - Additional Disciplines Additional Disciplines Needed/Ordered: Occupational Therapy
[2018-10-03] MEDS: Senna/Docusate Sodium 1 Tablet PO (16:52)
[2018-10-03 16:53] VITALS: BP 102/54; PULSE 68
[2018-10-03 17:10] LABS: Bedside Glucose 109 mg/dL (70-110)
[2018-10-03] MEDS: Insulin Lispro 100 UNIT/ML INSULN.PEN 12 UNIT SC (17:51)
[2018-10-03 21:06] LABS: Bedside Glucose 125 mg/dL (70-110)
[2018-10-03] MEDS: Sertraline 100 MG Tablet 200 MG PO (22:52)
[2018-10-03] MEDS: Montelukast 10 MG Tablet PO (22:52)
[2018-10-03] MEDS: Fluticasone 0.05% 1 SPRAY NASAL.SRY 2 SPRAY NASAL (22:52)
[2018-10-03] MEDS: Atorvastatin Calcium 40 MG Tablet PO (22:52)
[2018-10-03] MEDS: traZODone 100 MG Tablet 150 MG PO (22:52)
[2018-10-04 06:36] LABS: Bedside Glucose 117 mg/dL (70-110)
[2018-10-04 06:54] VITALS: BP 110/56; PULSE 70
[2018-10-04] MEDS: Metoprolol(XL)Succ 50 MG Tablet PO ×2 (06:54→17:04)
[2018-10-04] MEDS: Lisinopril 10 MG Tablet PO (06:54)
[2018-10-04] MEDS: Oxybutynin 5 MG Tablet PO ×3 (06:54→22:50)
[2018-10-04] MEDS: Magnesium Oxide 400 MG Tablet PO (06:54)
[2018-10-04] MEDS: Sucralfate 1 GM Tablet PO ×4 (06:54→22:48)
[2018-10-04] MEDS: Levothyroxine 25 MCG TABLET PO (06:54)
[2018-10-04] MEDS: Pantoprazole Sodium 40 MG Tablet PO ×2 (06:54→17:03)
[2018-10-04] MEDS: busPIRone 15 MG TABLET PO ×2 (06:54→17:02)
[2018-10-04] MEDS: Enoxaparin 40 MG/0.4 ML Syringe SC (06:55)
[2018-10-04] MEDS: Fluticasone/Salmeterol 232-14 Inhaler 1 PUFF IH ×2 (06:55→17:03)
[2018-10-04] MEDS: Umeclidinium Bromide Inhaler 1 PUFF IH (06:55)
[2018-10-04] MEDS: Pregabalin 50 MG Capsule PO ×3 (06:56→22:52)
[2018-10-04] MEDS: Insulin Lispro 100 UNIT/ML INSULN.PEN 8 UNIT SC (08:48)
[2018-10-04] MEDS: Furosemide 40 MG Tablet PO ×2 (08:48→17:03)
[2018-10-04] MEDS: Multivitamins,Therapeutic Tablet 1 TABLET PO (08:48)
[2018-10-04 11:41] LABS: Bedside Glucose 143 mg/dL (70-110)
[2018-10-04] MEDS: Insulin Lispro 100 UNIT/ML INSULN.PEN 9 UNIT SC (12:16)
[2018-10-04] MEDS: Ondansetron ODT 4 MG Tablet PO (12:31)
[2018-10-04 13:20] VITALS: O2SAT 97
[2018-10-04 15:41] VITALS: BP 126/53; PULSE 69; RESP 18; TEMP 36.9; O2SAT 100
[2018-10-04] MEDS: Senna/Docusate Sodium 1 Tablet PO (17:03)
[2018-10-04 17:04] VITALS: BP 126/53; PULSE 69
[2018-10-04 17:10] LABS: Bedside Glucose 105 mg/dL (70-110)
--- NOTE | 2018-10-04 18:06 | NURSING ---
pt blood sugar 105, dr pearson updated, new order to hold humalog and lantus tonight. pt not eating too much supper
[2018-10-04] MEDS: Acetaminophen 500 MG Tablet 1000 MG PO (19:45)
[2018-10-04 19:48] VITALS: O2SAT 98
[2018-10-04 20:08] VITALS: PULSE 84; RESP 18; O2SAT 93
[2018-10-04 21:06] LABS: Bedside Glucose 173 mg/dL (70-110)
[2018-10-04] MEDS: traZODone 100 MG Tablet 150 MG PO (22:49)
[2018-10-04] MEDS: Fluticasone 0.05% 1 SPRAY NASAL.SRY 2 SPRAY NASAL (22:50)
[2018-10-04] MEDS: Montelukast 10 MG Tablet PO (22:52)
[2018-10-04] MEDS: Atorvastatin Calcium 40 MG Tablet PO (22:52)
[2018-10-04] MEDS: Sertraline 100 MG Tablet 200 MG PO (22:53)
[2018-10-05] MEDS: Umeclidinium Bromide Inhaler 1 PUFF IH (06:27)
[2018-10-05] MEDS: Fluticasone/Salmeterol 232-14 Inhaler 1 PUFF IH ×2 (06:27→17:21)
[2018-10-05] MEDS: Levothyroxine 25 MCG TABLET PO (06:28)
[2018-10-05] MEDS: Magnesium Oxide 400 MG Tablet PO (06:28)
[2018-10-05] MEDS: Oxybutynin 5 MG Tablet PO ×3 (06:28→22:45)
[2018-10-05] MEDS: Lisinopril 10 MG Tablet PO (06:28)
[2018-10-05] MEDS: busPIRone 15 MG TABLET PO ×2 (06:28→17:24)
[2018-10-05] MEDS: Enoxaparin 40 MG/0.4 ML Syringe SC (06:28)
[2018-10-05] MEDS: Sucralfate 1 GM Tablet PO ×4 (06:28→22:43)
[2018-10-05] MEDS: Pantoprazole Sodium 40 MG Tablet PO ×2 (06:28→17:23)
[2018-10-05] MEDS: Pregabalin 50 MG Capsule PO ×3 (06:28→22:46)
[2018-10-05 06:29] VITALS: BP 120/61; PULSE 74
[2018-10-05] MEDS: Metoprolol(XL)Succ 50 MG Tablet PO ×2 (06:29→17:24)
[2018-10-05 06:35] LABS: Bedside Glucose 158 mg/dL (70-110)
[2018-10-05 07:11] VITALS: O2SAT 96
[2018-10-05] MEDS: Insulin Lispro 100 UNIT/ML INSULN.PEN 8 UNIT SC (08:42)
[2018-10-05] MEDS: Furosemide 40 MG Tablet PO ×2 (08:42→17:23)
[2018-10-05] MEDS: Multivitamins,Therapeutic Tablet 1 TABLET PO (08:42)
[2018-10-05 11:31] LABS: Bedside Glucose 220 mg/dL (70-110)
[2018-10-05] MEDS: Insulin Lispro 100 UNIT/ML INSULN.PEN 9 UNIT SC (11:59)
[2018-10-05 16:00] VITALS: BP 112/65; PULSE 70; RESP 18; TEMP 36.8; O2SAT 98
[2018-10-05 16:55] LABS: Bedside Glucose 171 mg/dL (70-110)
[2018-10-05] MEDS: Senna/Docusate Sodium 1 Tablet PO (17:23)
[2018-10-05 17:24] VITALS: BP 112/65; PULSE 70
[2018-10-05] MEDS: Insulin Lispro 100 UNIT/ML INSULN.PEN 12 UNIT SC (17:40)
[2018-10-05 19:08] VITALS: PULSE 77; RESP 16; O2SAT 98
[2018-10-05] MEDS: Albuterol 2.5 MG/3 ML VIAL.NEB. INHALATION (19:08)
[2018-10-05 21:37] LABS: Bedside Glucose 191 mg/dL (70-110)
[2018-10-05] MEDS: traZODone 100 MG Tablet 150 MG PO (22:45)
[2018-10-05] MEDS: Fluticasone 0.05% 1 SPRAY NASAL.SRY 2 SPRAY NASAL (22:46)
[2018-10-05] MEDS: Atorvastatin Calcium 40 MG Tablet PO (22:46)
[2018-10-05] MEDS: Montelukast 10 MG Tablet PO (22:46)
[2018-10-05] MEDS: Sertraline 100 MG Tablet 200 MG PO (22:47)
[2018-10-06] MEDS: busPIRone 15 MG TABLET PO ×2 (06:33→16:27)
[2018-10-06] MEDS: Oxybutynin 5 MG Tablet PO ×3 (06:33→21:26)
[2018-10-06] MEDS: Magnesium Oxide 400 MG Tablet PO (06:33)
[2018-10-06] MEDS: Pantoprazole Sodium 40 MG Tablet PO ×2 (06:34→16:29)
[2018-10-06 06:35] VITALS: BP 147/70; PULSE 80
[2018-10-06] MEDS: Metoprolol(XL)Succ 50 MG Tablet PO ×2 (06:35→16:29)
[2018-10-06] MEDS: Senna/Docusate Sodium 1 Tablet PO ×2 (06:35→16:29)
[2018-10-06] MEDS: Levothyroxine 25 MCG TABLET PO (06:35)
[2018-10-06 06:36] LABS: Bedside Glucose 167 mg/dL (70-110)
[2018-10-06] MEDS: Pregabalin 50 MG Capsule PO ×3 (06:39→21:26)
[2018-10-06] MEDS: Sucralfate 1 GM Tablet PO ×4 (06:40→21:26)
[2018-10-06] MEDS: Lisinopril 10 MG Tablet PO (06:40)
[2018-10-06] MEDS: Umeclidinium Bromide Inhaler 1 PUFF IH (06:41)
[2018-10-06] MEDS: Fluticasone/Salmeterol 232-14 Inhaler 1 PUFF IH ×2 (06:41→16:27)
[2018-10-06] MEDS: Enoxaparin 40 MG/0.4 ML Syringe SC (06:42)
[2018-10-06 07:00] VITALS: O2SAT 98
[2018-10-06] MEDS: Insulin Lispro 100 UNIT/ML INSULN.PEN 8 UNIT SC (08:15)
[2018-10-06] MEDS: Furosemide 40 MG Tablet PO ×2 (08:15→16:30)
[2018-10-06] MEDS: Multivitamins,Therapeutic Tablet 1 TABLET PO (08:15)
[2018-10-06] MEDS: traMADol 50 MG Tablet PO (08:20)
[2018-10-06 11:06] LABS: Bedside Glucose 308 mg/dL (70-110)
[2018-10-06] MEDS: Ondansetron ODT 4 MG Tablet PO ×2 (11:11→22:52)
[2018-10-06] MEDS: Insulin Lispro 100 UNIT/ML INSULN.PEN 9 UNIT SC (12:21)
[2018-10-06 13:15] VITALS: PULSE 80; RESP 20; O2SAT 97
[2018-10-06] MEDS: Albuterol 2.5 MG/3 ML VIAL.NEB. INHALATION (13:15)
--- NOTE | 2018-10-06 14:17 | CASEMGMT ---
Insurance: Clinical updates faxed this day. Auth # [id number]
[2018-10-06 15:55] VITALS: BP 142/66; PULSE 72; RESP 20; TEMP 36.9; O2SAT 97
[2018-10-06 16:29] VITALS: BP 142/66; PULSE 72
[2018-10-06 17:21] LABS: Bedside Glucose 146 mg/dL (70-110)
[2018-10-06] MEDS: Insulin Lispro 100 UNIT/ML INSULN.PEN 12 UNIT SC (17:37)
[2018-10-06] MEDS: Atorvastatin Calcium 40 MG Tablet PO (21:26)
[2018-10-06] MEDS: Montelukast 10 MG Tablet PO (21:26)
[2018-10-06] MEDS: Fluticasone 0.05% 1 SPRAY NASAL.SRY 2 SPRAY NASAL (21:27)
[2018-10-06 21:30] LABS: Bedside Glucose 133 mg/dL (70-110)
[2018-10-06] MEDS: Sertraline 100 MG Tablet 200 MG PO (22:52)
[2018-10-06] MEDS: traZODone 100 MG Tablet 150 MG PO (22:53)
[2018-10-07] MEDS: Polyethylene Glycol 3350 17 GM PACKET PO (06:30)
[2018-10-07 06:31] VITALS: BP 162/76; PULSE 86
[2018-10-07] MEDS: Lisinopril 10 MG Tablet PO (06:31)
[2018-10-07] MEDS: Senna/Docusate Sodium 1 Tablet PO ×2 (06:31→17:56)
[2018-10-07] MEDS: Levothyroxine 25 MCG TABLET PO (06:31)
[2018-10-07] MEDS: Enoxaparin 40 MG/0.4 ML Syringe SC (06:31)
[2018-10-07] MEDS: Pregabalin 50 MG Capsule PO ×3 (06:31→21:13)
[2018-10-07] MEDS: Pantoprazole Sodium 40 MG Tablet PO ×2 (06:31→17:56)
[2018-10-07] MEDS: Magnesium Oxide 400 MG Tablet PO (06:31)
[2018-10-07] MEDS: Metoprolol(XL)Succ 50 MG Tablet PO ×2 (06:31→17:56)
[2018-10-07] MEDS: Sucralfate 1 GM Tablet PO ×4 (06:32→21:13)
[2018-10-07] MEDS: busPIRone 15 MG TABLET PO ×2 (06:32→17:54)
[2018-10-07] MEDS: Oxybutynin 5 MG Tablet PO ×3 (06:37→21:13)
[2018-10-07] MEDS: Fluticasone/Salmeterol 232-14 Inhaler 1 PUFF IH ×2 (06:39→17:54)
[2018-10-07] MEDS: Umeclidinium Bromide Inhaler 1 PUFF IH (06:39)
[2018-10-07 06:56] LABS: Bedside Glucose 135 mg/dL (70-110)
--- NOTE | 2018-10-07 08:56 | NURSING ---
New order to increase Lasix to 80mg BID.
[2018-10-07] MEDS: Multivitamins,Therapeutic Tablet 1 TABLET PO (08:58)
[2018-10-07] MEDS: Furosemide 40 MG Tablet 80 MG PO ×2 (08:58→17:55)
[2018-10-07] MEDS: Insulin Lispro 100 UNIT/ML INSULN.PEN 8 UNIT SC (08:58)
[2018-10-07 11:15] LABS: Bedside Glucose 171 mg/dL (70-110)
[2018-10-07] MEDS: Insulin Lispro 100 UNIT/ML INSULN.PEN 9 UNIT SC (12:15)
[2018-10-07 15:08] VITALS: BP 109/52; PULSE 72; RESP 17; TEMP 36.8; O2SAT 96
[2018-10-07 17:05] LABS: Bedside Glucose 179 mg/dL (70-110)
--- NOTE | 2018-10-07 17:51 | SLEEP ---
Went to patient's bedside to evaluate current home PAP Therapy equipment and compliant that hose does not fit her mask. Found the OxyClimateline tubing to be in good shape, however her mask style F20 Medium hose connector is loose and disconnecting with minimal movement from the patient. She was not comfortable accepting new mask and tubing from [facility] at this time as we were not able to confirm her eligibility through her insurance and previous DME provider Bhvana Durán. I advised the patient to follow up with Bhavna to confirm when they last billed her for equipment. If she knows the last bill date, [facility] can determine her eligibility for new tubing and mask. I gave her haily F20 Medium cushion and connector.
[2018-10-07] MEDS: Insulin Lispro 100 UNIT/ML INSULN.PEN 12 UNIT SC (17:53)
[2018-10-07 17:56] VITALS: PULSE 4
[2018-10-07 21:06] LABS: Bedside Glucose 193 mg/dL (70-110)
[2018-10-07] MEDS: Fluticasone 0.05% 1 SPRAY NASAL.SRY 2 SPRAY NASAL (21:11)
[2018-10-07] MEDS: Atorvastatin Calcium 40 MG Tablet PO (21:13)
[2018-10-07] MEDS: Montelukast 10 MG Tablet PO (21:13)
[2018-10-07] MEDS: Sertraline 100 MG Tablet 200 MG PO (22:58)
[2018-10-07] MEDS: traZODone 100 MG Tablet 150 MG PO (22:58)
[2018-10-08] MEDS: Levothyroxine 25 MCG TABLET PO (06:20)
[2018-10-08] MEDS: Pantoprazole Sodium 40 MG Tablet PO (06:20)
[2018-10-08] MEDS: busPIRone 15 MG TABLET PO (06:20)
[2018-10-08] MEDS: Pregabalin 50 MG Capsule PO (06:20)
[2018-10-08] MEDS: Enoxaparin 40 MG/0.4 ML Syringe SC (06:20)
[2018-10-08] MEDS: Sucralfate 1 GM Tablet PO (06:20)
[2018-10-08] MEDS: Oxybutynin 5 MG Tablet PO (06:20)
[2018-10-08] MEDS: Senna/Docusate Sodium 1 Tablet PO (06:20)
[2018-10-08] MEDS: Fluticasone/Salmeterol 232-14 Inhaler 1 PUFF IH (06:20)
[2018-10-08] MEDS: Umeclidinium Bromide Inhaler 1 PUFF IH (06:20)
[2018-10-08] MEDS: Magnesium Oxide 400 MG Tablet PO (06:20)
[2018-10-08 06:21] VITALS: BP 141/72; PULSE 77
[2018-10-08] MEDS: Metoprolol(XL)Succ 50 MG Tablet PO (06:21)
[2018-10-08] MEDS: Lisinopril 10 MG Tablet PO (06:22)
[2018-10-08 06:45] LABS: Bedside Glucose 167 mg/dL (70-110)
[2018-10-08] MEDS: Insulin Lispro 100 UNIT/ML INSULN.PEN 8 UNIT SC (08:51)
[2018-10-08] MEDS: Multivitamins,Therapeutic Tablet 1 TABLET PO (08:51)
[2018-10-08] MEDS: Furosemide 40 MG Tablet 80 MG PO (08:51)
--- NOTE | 2018-10-08 11:53 | NURSING ---
Call placed to Dr. Bain's office regarding appointment of 12/26/18, requested patient's appointment be moved up d/t recent hospitalization and multiple medical conditions. Nurse from office to call back with a closer appointment date and time.
[2018-10-08 12:43] VITALS: BP 124/84; PULSE 87; RESP 20; TEMP 36.4; O2SAT 96
--- NOTE | 2018-10-10 11:18 | NURSING ---
Dr. Bain' office called to voice concern about unable to F/U with Dr. Bain until mid december. Nurse there stated would be okay to F/U with [employer] Pete Hinson if okay with pt. Pt called and notified of this, states she will call office to update appointment.
--- NOTE | 2018-10-15 13:47 | MDS.RN ---
Information for the mds was obtained from review of the clinical record, interview of resident, staff, and direct observation of resident's care.
== END 2018-10-08 12:00 | disposition home health service (06) | DRG 948 ==
PROVIDERS: Admitting Provider Family Medicine Geriatric Medicine; Family Provider Internal Medicine; PCP Internal Medicine; Referring Provider Family Medicine Geriatric Medicine; Visit Provider Family Medicine Geriatric Medicine
DX: R53.81 Other malaise (principal); C85.90 Non-Hodgkin lymphoma, unspecified, unspecified site; Z68.41 Body mass index [BMI] 40.0-44.9, adult; J96.10 Chronic respiratory failure, unspecified whether with hypoxia or hypercapnia; J44.9 Chronic obstructive pulmonary disease, unspecified; F32.9 Major depressive disorder, single episode, unspecified; F41.9 Anxiety disorder, unspecified; E11.42 Type 2 diabetes mellitus with diabetic polyneuropathy; N32.81 Overactive bladder; K21.9 Gastro-esophageal reflux disease without esophagitis; B35.1 Tinea unguium; I11.0 Hypertensive heart disease with heart failure; G47.33 Obstructive sleep apnea (adult) (pediatric); I27.29 Other secondary pulmonary hypertension; I50.810 Right heart failure, unspecified; K58.9 Irritable bowel syndrome, unspecified; E78.5 Hyperlipidemia, unspecified; E03.9 Hypothyroidism, unspecified; E66.01 Morbid (severe) obesity due to excess calories; Z71.3 Dietary counseling and surveillance; M35.00 Sjogren syndrome, unspecified; Z87.891 Personal history of nicotine dependence; M48.061 Spinal stenosis,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 without neurogenic claudication; E87.5 Hyperkalemia; K76.0 Fatty (change of) liver, not elsewhere classified; B35.4 Tinea corporis; M79.674 Pain in right toe(s); M79.675 Pain in left toe(s)
CPT/HCPCS: 36415; 80048; 81001; 82962; 85025; 87086; 87088; 92610; 94640; 97110; 97116; 97163; 97166; 97530; 97535; 97802; J7030; A4216

== ENCOUNTER 2018-10-16 17:25 | Outpatient (RCR) | payer MEDICARE, SELFPAY ==
[2018-10-01 09:56] VITALS: BMI 43.2
[2018-10-16 17:39] LABS: Hematocrit 38.7 % (37-47); Hemoglobin 12.5 g/dL (12.0-15.0); Mean Corp Hgb Conc 32.3 g/dL (32-36); Mean Corpuscular Hgb 29.1 pg (27.0-32.0); Mean Corpuscular Volume 90.2 fL (81-99); Mean Platelet Vol. 10.9 fl (6.2-12.0); Platelet Count 240 K/mm3 (150-450); RBC Distribution Width CV 14.6 % (11.6-14.6); RBC Distribution Width SD 47.9 fl (35.1-43.9); Red Blood Count 4.29 M/mm3 (4.2-5.4); White Blood Count 10.2 K/mm3 (4.4-11.0)
[2018-10-16 17:47] LABS: Anion Gap 6 (5-15); BUN 19 mg/dL (7-18); BUN/Creat Ratio 24.7 RATIO (10-20); Calcium,Total 9.5 mg/dL (8.5-10.1); Chloride 102 mmol/L (98-107); Creatinine, Serum 0.77 mg/dL (0.55-1.02); EST Glomerular Filtration Rate 79 mL/min (>60); Est Glom Filt Rate - Afr Amer 95 mL/min (>60); Glucose 153 mg/dL (74-106); Potassium 4.3 mmol/L (3.5-5.1); Sodium Level 139 mmol/L (136-145)
[2018-10-16 18:14] LABS: Hemoglobin A1c 7.3 % (4.2-6.3)
== END 2018-11-08 23:59 ==
LOC: HHLAB 17:25
PROVIDERS: Family Provider Internal Medicine; PCP Internal Medicine; Referring Provider Internal Medicine; Visit Provider Internal Medicine
DX: Z79.899 Other long term (current) drug therapy (principal)
CPT/HCPCS: 80048; 83036; 85027

== ENCOUNTER → 2018-11-18 22:57 | Outpatient (CLI) | payer MEDICARE, SELFPAY ==
[2018-10-01 09:56] VITALS: BMI 43.2
[2018-11-07 10:11] VITALS: BMI 44.7
== END ==
PROVIDERS: Family Provider Internal Medicine; PCP Internal Medicine; Referring Provider Internal Medicine Pulmonary Disease; Visit Provider Internal Medicine Pulmonary Disease
DX: G47.33 Obstructive sleep apnea (adult) (pediatric) (principal)
CPT/HCPCS: 95811

== ENCOUNTER 2018-11-24 06:04 | Day surgery (SDC) | payer MEDICARE, SELFPAY ==
[2018-11-07 10:11] VITALS: BMI 44.7
[2018-11-24 06:35] LABS: Bedside Glucose 274 mg/dL (70-110)
[2018-11-24 06:40] VITALS: BP 127/68; PULSE 84; RESP 18; TEMP 37.2; O2SAT 96; BMI 43.7
[2018-11-24] MEDS: Lactated Ringers 1,000 ML 100 ML IV (07:14)
--- NOTE | 2018-11-24 07:30 | RAD_ITS ---
PROCEDURE: Right L3-S1 radiofrequency ablation. DATE OF EXAMINATION: November 24, 2018. INDICATION: Female, 73 years old. Chronic back pain. FLUOROSCOPY TIME (if supplied): (0:24) minutes/seconds. 10 images were obtained. Intraoperative imaging provided for right L3-S1 radiofrequency ablation. RAD/L/S Spine Min 4 Views IMPRESSION: Intraoperative imaging provided for right L3-S1 radiofrequency ablation. Electronically Signed: Raghu Arnett, at 15:15 EDT , Service support ,
[2018-11-24] MEDS: MethylPREDNISolone Acetate 80 MG/ML Vial (07:43)
[2018-11-24] MEDS: Bupivacaine 0.25% 30 ML Vial (07:43)
[2018-11-24 08:00] VITALS: BP 109/61; BP 127/68; PULSE 91; RESP 18; TEMP 36.9; O2SAT 97
[2018-11-24 08:05] VITALS: BP 117/65; BP 127/68; PULSE 88; RESP 18; O2SAT 94
[2018-11-24 08:09] VITALS: BP 124/65; BP 127/68; PULSE 86; RESP 18; O2SAT 95
[2018-11-24 08:14] VITALS: BP 127/68; BP 95/80; RESP 18; TEMP 36.9; O2SAT 96
[2018-11-24 08:40] VITALS: BP 127/68
--- NOTE | 2018-11-24 11:58 | PCM.OPRPT ---
Problem List (1) Spondylosis of lumbosacral region without myelopathy or radiculopathy Status: Chronic Report of Operation Date of Procedure: 11/24/18 Description of Surgical Findings:: PROCEDURE: Right-sided radiofrequency ablation of the medial branch L3, L4, L5, S1 PREOPERATIVE DIAGNOSES: Lumbosacral spondylosis, lumbosacral degenerative disc disease, lumbar facet arthropathy POSTOPERATIVE DIAGNOSES: Lumbosacral spondylosis, lumbosacral degenerative disc disease, lumbar facet arthropathy ANESTHESIA: MAC COMPLICATIONS: None BLOOD LOSS: Minimal PROCEDURE IN DETAIL: History and physical today was reviewed. Risks and benefits of procedure explained. The patient understood, agreed to the procedure and informed consent was obtained. IV inserted per routine protocol. The patient was taken to the operating room, placed in the prone position with a pillow positioned underneath the abdomen. The right side of the lower back was prepped and draped in a sterile fashion using iodine x 3. Under fluoroscopy guidance, on an oblique view, the L3 through S1 vertebral bodies were visualized. The skin and subcutaneous tissue was anesthetized with approximately 10 mL of 1% lidocaine using a 25-gauge regular needle. Under direct visualization with fluoroscopy at approximately 25-degree angle, starting on the right L3, ending on the right S1 passing through the L4-L5 using a 20-gauge 15 cm with a 10 mm curved active tip radiofrequency ablation needle the needle passed through the skin. The tip of the needle was maneuvered and directed towards the superior and medial gutter of the transverse process at the vicinity of the medial branch. Once the tip of the needle was in contact with the bone, the needle pulled approximately 2 mm up the bone. The stylet of each needle was then removed. After negative aspiration of blood with CSF and confirmation of AP as well as oblique view, radiofrequency ablation probe was then inserted at each level. Impedance was then recorded at L3 to be 378, at L4 287, at L5 312, at S1 262 ohm. Motor-evoked potential was then initiated to 1.5 volt without any motor response at each corresponding level. The probe was then removed intact and a total of 6 mL preservative-free 1% lidocaine was injected in divided doses between those 4 levels after negative aspiration of blood with CSF. The radiofrequency ablation probe was then reinserted after confirmation of AP, oblique as well as lateral view. Radiofrequency ablation was then initiated to 80 degrees Celsius for 90 seconds at each level. Once concluded, the probe was then removed intact and a total of 6 mL of preservative-free 0.25% Marcaine with 40 mg Depo-Medrol was injected in divided doses between those 4 levels. The needles were then removed intact. The patient experienced no signs or symptoms of intrathecal, intravascular injection. The patient experienced no paraesthesia. The procedure was completed without any apparent difficulty, any complication. The patient appeared to tolerate well. Sensory as well as motor exam was unchanged from prior to procedure. ASSESSMENT AND PLAN: This is a 73-year-old female with lumbosacral spondylosis, lumbosacral degenerative disc disease, lumbar facet arthropathy, status post right-sided radiofrequency ablation of the medial branch L3 through S1. The patient will continue her current medications. The patient will follow up in approximately 2 weeks for reevaluation.
== END 2018-11-24 08:40 | disposition home or self-care (01) ==
LOC: SDC 06:05 → AC 06:06
PROVIDERS: Family Provider Internal Medicine; PCP Internal Medicine; Referring Provider Anesthesiology Pain Medicine; Visit Provider Anesthesiology Pain Medicine
PROC: (CPT 64635; principal; 2018-11-24 07:15)
DX: M47.817 Spondylosis without myelopathy or radiculopathy, lumbosacral region (principal); M51.37 Other intervertebral disc degeneration, lumbosacral region; M46.96 Unspecified inflammatory spondylopathy,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; G89.29 Other chronic pain; I25.10 Atherosclerotic heart disease of native coronary artery without angina pectoris; I34.1 Nonrheumatic mitral (valve) prolapse; I10 Essential (primary) hypertension; E11.9 Type 2 diabetes mellitus without complications; K21.9 Gastro-esophageal reflux disease without esophagitis; F32.9 Major depressive disorder, single episode, unspecified; F41.9 Anxiety disorder, unspecified; E78.5 Hyperlipidemia, unspecified; E07.9 Disorder of thyroid, unspecified; J43.9 Emphysema, unspecified; G47.33 Obstructive sleep apnea (adult) (pediatric); Z79.891 Long term (current) use of opiate analgesic; Z79.4 Long term (current) use of insulin; Z99.81 Dependence on supplemental oxygen; Z79.899 Other long term (current) drug therapy; Z85.72 Personal history of non-Hodgkin lymphomas; Z87.891 Personal history of nicotine dependence
CPT/HCPCS: 01936; 64635; 64636 ×2; 72110; 76000; 82962; J7120; A4216

== ENCOUNTER 2018-11-28 14:25 | Emergency (ER) | payer MEDICARE, SELFPAY ==
[2018-11-28 14:27] VITALS: BP 120/68; PULSE 81; RESP 16; TEMP 36.6; O2SAT 96; BMI 43.0
[2018-11-28 16:00] LABS: Absolute Lymphocyte Count 1.46 X10^3/uL (0.83-4.51); Absolute Neutrophil Count 9.8 X10^3/uL (2.0-7.7); Basophil# 0.05 X10^3/uL; Basophil% 0.4 % (0-1); Eosinophil# 0.17 X10^3/uL; Eosinophils% 1.4 % (0-5); Hemoglobin 13.6 g/dL (12.0-15.0); Lymphocyte # 1.46 X10^3/ul (4.0); Lymphocyte % 12.1 % (19-41); Mean Corp Hgb Conc 31.6 g/dL (32-36); Mean Corpuscular Hgb 28.5 pg (27.0-32.0); Mean Platelet Vol. 10.8 fl (6.2-12.0); Monocyte# 0.54 X10^3/uL; Monocyte% 4.5 % (0-10); NRBC Flagged by Analyzer 0 % (0-5); Neutrophil # 9.82 X10^3/uL (2.7-7.7); Platelet Count 260 K/mm3 (150-450); RBC Distribution Width SD 49.9 fl (35.1-43.9); Red Blood Count 4.78 M/mm3 (4.2-5.4); White Blood Count 12.1 K/mm3 (4.4-11.0)
[2018-11-28 16:06] LABS: International Normalized Ratio 1.1; Prothrombin Time (Protime)PT. 14.2 SECONDS (11.7-14.9)
[2018-11-28 16:14] LABS: Mucous, Urine 0 SEEN /hpf (<or=2+); Red Blood Cells-Urine 0 SEEN /hpf (0-5); White Blood Cells 0 SEEN /hpf (0-5)
[2018-11-28 16:14] LABS: ALB/GLOB Ratio 0.9 RATIO (0.9-2.4); AST(SGOT) 20 U/L (15-37); Alanine Aminotransfer ALT/SGPT 29 U/L (13-56); Albumin, Serum 3.5 g/dL (3.2-5.0); Alkaline Phosphatase 155 U/L (45-117); Anion Gap 4 (5-15); BUN 28 mg/dL (7-18); BUN/Creat Ratio 35.5 RATIO (10-20); Calcium,Total 8.5 mg/dL (8.5-10.1); Chloride 100 mmol/L (98-107); Creatinine, Serum 0.79 mg/dL (0.55-1.02); EST Glomerular Filtration Rate 76 mL/min (>60); Est Glom Filt Rate - Afr Amer 92 mL/min (>60); Estimated Creatinine Clearance 38.37 ml/min; Globulin 3.9 g/dL (2.2-4.2); Glucose 191 mg/dL (74-106); Lipase 182 U/L (73-393); Potassium 3.5 mmol/L (3.5-5.1); Protein, Total 7.4 g/dL (6.4-8.2); Sodium Level 138 mmol/L (136-145)
[2018-11-28 16:19] LABS: Color, Urine Yellow (Yellow); Glucose, Dipstick Normal (Normal); Ketone-Dipstick Negative (Negative); Leukocyte Esterase-Dipstick Negative /ul (Negative); Nitrite-Dipstick Negative (Negative); Occult Blood-Urine Negative /ul (Negative); Protein-Dipstick Negative (Negative); Urine Bilirubin Dipstick Negative (Negative); Urine Clarity Clear (Clear); Urine Urobilinogen Normal (Normal)
[2018-11-28 16:37] LABS: Bacteria RARE /hpf (None Seen); Squamous Epithelial Cells - UA 0-5 SEEN /hpf (5-10)
--- NOTE | 2018-11-28 18:27 | ED.DCSUM_ITS ---
- ER Visit Summary Date of Service: 11/28/18 Chief Complaint: Diarrhea History of Present Illness: The patient is a 73 F with diarrhea for the past 3 to 4 days. Every time she eats something, she has a diarrheal episode. She feels like she might be getting dehydrated. She feels tired. Reports dry mouth. History of low potassium. No history of recent antibiotics. No gross red blood. No significant pain or other associated symptoms. Patient had symptoms like this in the past and required hospitalization for dehydration. Physical Examination: Afebrile and vital signs unremarkable. Patient alert and oriented. No acute distress. Skin appears normal without diaphoresis or pallor. Heart regular. Lungs clear. Abdomen soft and nontender. Test Results: White count 12.1. Metabolic panel stable. Potassium normal. Hepatic panel and lipase unremarkable. Coags unremarkable except for PTT of 56. Urinalysis normal. Emergency Department Course and Treatment: Patient was treated with IV fluids. Vital signs remained stable. She was not anemic. Nothing to suggest sepsis. No significant pain. She was unable to produce a stool sample for C. difficile testing. On reevaluation, patient was feeling much improved. Vitals normal. She would like to follow-up with her doctor. She will be discharged. Stay hydrated. Return for any new or worsening issues. Treatment Plan: As above Disposition: Discharge Impression: Diarrheal illness This note was generated with Phantom dictation software. It may contain incorrect words, spelling, and punctuation that were not noted in review of the chart prior to signing ED Disposition - Plan for ED Patient: Referrals: Zabrina Bain MD [Primary Care Provider] -
--- NOTE | 2018-11-28 18:31 | ED.DEP ---
ED Disposition - Plan for ED Patient: Instructions: Treating Diarrhea Referrals: Zabrina Bain MD [Primary Care Provider] -
== END 2018-11-28 18:47 | disposition home or self-care (01) ==
PROVIDERS: Emergency Provider Emergency Medicine; Family Provider Internal Medicine; PCP Internal Medicine
DX: R19.7 Diarrhea, unspecified (principal); I11.0 Hypertensive heart disease with heart failure; I50.9 Heart failure, unspecified; I27.21 Secondary pulmonary arterial hypertension; Z79.899 Other long term (current) drug therapy; Z87.891 Personal history of nicotine dependence
CPT/HCPCS: 80053; 81001; 83690; 85025; 85610; 85730; 96360; 99282; J7040; A4216

== ENCOUNTER → 2019-04-07 14:04 | Outpatient (CLI) | payer MEDICARE, MEDICAID, SELFPAY ==
--- NOTE | 2019-04-07 14:13 | CT_ITS ---
STUDY: CT SOFT TISSUE NECK WITHOUT CONTRAST REASON FOR EXAM: Female, 73 years old. Neck mass. RADIATION DOSAGE (If Supplied By Facility): CTDIvol = ( 12.74 ) mGy, DLP = ( 316.56 ) mGycm TECHNIQUE: The patient was scanned in a multi-detector CT scanner. High resolution transaxial imaging was performed without the administration of intravenous contrast material. Sagittal and coronal images were reconstructed. Individualized dose optimization techniques were used for this CT. COMPARISON: None. FINDINGS: Normal bilateral parotid glands. Normal bilateral lime trimmer spaces. Normal bilateral parapharyngeal spaces. Normal bilateral carotid spaces. Normal bilateral sublingual and submandibular glands and spaces. Normal visualized nasopharynx. Normal retropharyngeal space. Normal perivertebral space. Normal visualized bilateral faucial tonsils. The visualized tongue, tongue base and oropharynx are normal. The visualized cervical lymph nodes (levels I-) are within normal size limits, and maintain normal morphology. There is no demonstrated solid or cystic mass lesion. Normal epiglottis, bilateral vallecula and hypopharynx. The pre-epiglottic and paraglottic adipose spaces are normal. Normal visualized bilateral piriform sinuses, aryepiglottic folds, vocal cords, and arytenoid-cricoid articulations. Normal subglottic trachea. Normal bilateral lobes of the thyroid gland. Normal visualized pulmonary apices. Normal visualized paranasal sinuses. There is a left jugular central venous catheter. Degenerative changes of the cervical spine. CT/Soft Tissue Neck without Contr IMPRESSION: 1. Normal unenhanced CT examination of the soft tissues of the neck. There is no visualized mass. 2. Degenerative changes cervical spine. 3. Left jugular central venous catheter. Electronically Signed: Logan Zavala DO at 19:55 EST Tel [phone], Service support ,
--- NOTE | 2019-04-07 14:13 | RAD_ITS ---
STUDY: X-RAY - THORACIC SPINE REASON FOR EXAM: Female, 73 years old. Right lower thoracic spine pain for one and half weeks. TECHNIQUE: 2 view(s) of the thoracic spine were obtained. COMPARISON: PA and lateral chest, September 15, 2018 FINDINGS: Normal kyphosis of the thoracic spine. There is no substantial scoliosis. There is minimal multilevel endplate spondylosis of the thoracic vertebrae. There is multilevel disc space narrowing of the thoracic spine. There is no evidence of acute fracture or loss of vertebral axial height. There is a left jugular central venous catheter. The soft tissue structures are unremarkable. RAD/Thoracic Spine 2 Views IMPRESSION: Degenerative changes of the thoracic spine without fracture or subluxation Electronically Signed: Logan Zavala DO at 19:52 EST Tel [phone], Service support ,
== END ==
PROVIDERS: PCP Internal Medicine; Referring Provider Otolaryngology; Visit Provider Otolaryngology
DX: R22.1 Localized swelling, mass and lump, neck (principal); M54.6 Pain in thoracic spine
CPT/HCPCS: 70490; 72070

== ENCOUNTER 2019-04-13 13:57 | Inpatient (IN) | payer MEDICARE, MEDICAID, SELFPAY ==
[2019-04-13] VITALS (12 sets, daily range): BP systolic 117–154; BP diastolic 43–87; PULSE 87–100; RESP 12–18; TEMP 36.6–37; O2SAT 92–98; BMI 46.2; BMI 45.1
--- NOTE | 2019-04-13 14:22 | VDLE_ITS ---
Reason For Study: Swelling Procedure LEFT Exam performed portable in ED. GSV is normal. Unable to visualize left CFV and SFJ due to FV is compressible, spontaneous, phasic, pt body habitus. competent and demonstrates normal A preliminary report was called and/or faxed augmentation. to [facility]. POP V is compressible, spontaneous, phasic, competent and demonstrates normal augmentation. T/P Trunk is compressible. PTV is compressible. LT PerV is compressible. Interpretation Summary There is no evidence of left lower extremity deep vein thrombosis. Left great saphenous vein appears patent and compressible segmentally. The left common femoral vein and saphenofemoral junction was not able to visualize secondary to body habitus Ordering Physician: Carter Oliver Referring Physician: Zabrina Bain M.D. Performed By: Libby Woody RVT
--- NOTE | 2019-04-13 14:24 | ED.DCSUM_ITS ---
- ER Visit Summary Date of Service: 04/13/19 Chief Complaint: Atraumatic left lower extremity pain and swelling History of Present Illness: The patient is a 73 F history of CHF, COPD requiring O2, diabetes and hypertension. Patient also has lymphoma. States the last several days she has had pain and swelling her left lower extremity. Has never had a DVT or PE. Denies any trauma. No fever. Physical Examination: Elderly female no acute distress vital signs stable afebrile. On oxygen her pulse ox is 92% without hypoxia. H EENT exam unremarkable. Neck nontender no lymphadenopathy. No JVD. Lungs clear to auscultation. Heart regular rhythm no murmur. Rate about 90. Abdomen soft nontender normal bowel sounds no peritoneal signs. Extremities moves all 4. She has normal dorsi plantarflexion. She has normal touch sense touch sensation. Left DP pulses intact. Left lower extremity does have 1+ pitting edema mild calf tenderness. There is mild redness or warmth. This may be cellulitis. I do not feel a specific cord. She is able to wiggle her toes of the left foot. There is no signs of trauma. No bony deformity. Patient is unable to bear weight due to pain. Test Results: Noninvasive study left lower extremity is being performed shows no DVT per the specialties operator. CBC shows a white count of 10. Hemoglobin 11.3 which is around her baseline. Electrolytes unremarkable with potassium low at 2.9. Normal BUN and creatinine. Normal gap. X-ray of the left ankle shows no acute process. X-ray left foot again no acute process. No foreign body or fracture. Emergency Department Course and Treatment: Sent for possible DVT left lower extremity. Screening labs and noninvasive study to be obtained. Treatment Plan: . Repeat exam appears to be more swollen and more red laterally. This is more consistent with cellulitis at this time. Think is unlikely to be gout but I did add a uric acid level for the hospitalist to follow. There is no signs of compartment syndrome. We tried to stand her and walker with walker and she was unable due to the pain. Patient be started on IV Zosyn and admitted to the hospitalist. I have already spoken to Dr. Wharton Disposition: admission Impression: Acute left lower extremity swelling and pain secondary to cellulitis Hx of diabetes History of COPD requiring O2 This note was generated with [employer] software. It may contain incorrect words, spelling, and punctuation that were not noted in review of the chart prior to signing ED Disposition - Plan for ED Patient: Disposition: Home or Assisted Living Referrals: Zabrina Bain MD [Primary Care Provider] - 3-5 Days Additional Instructions: There is no specific cause at this time of the pain and swelling in her left lower leg. The ultrasound did not show any clot. There is no signs of infection. And the x-rays do not show any signs of any broken bones. Ovate your ankle. Tylenol for pain. Follow-up with your doctor if not improving.
[2019-04-13 15:22] LABS: Absolute Lymphocyte Count 1.03 X10^3/uL (0.83-4.51); Absolute Neutrophil Count 8.4 X10^3/uL (2.0-7.7); Basophil# 0.03 X10^3/uL; Basophil% 0.3 % (0-1); Eosinophil# 0.11 X10^3/uL; Eosinophils% 1.1 % (0-5); Hematocrit 34.2 % (37-47); Hemoglobin 11.3 g/dL (12.0-15.0); Lymphocyte # 1.03 X10^3/ul (4.0); Mean Corpuscular Hgb 29.7 pg (27.0-32.0); Mean Corpuscular Volume 89.8 fL (81-99); Mean Platelet Vol. 10.5 fl (6.2-12.0); Monocyte# 0.68 X10^3/uL; Monocyte% 6.6 % (0-10); NRBC Flagged by Analyzer 0 % (0-5); Neutrophil # 8.42 X10^3/uL (2.7-7.7); Neutrophil % 81.2 % (47-70); Platelet Count 205 K/mm3 (150-450); RBC Distribution Width CV 15.1 % (11.6-14.6); Red Blood Count 3.81 M/mm3 (4.2-5.4); White Blood Count 10.4 K/mm3 (4.4-11.0)
[2019-04-13 15:38] LABS: Anion Gap 6 (5-15); BUN 19 mg/dL (7-18); BUN/Creat Ratio 19.5 RATIO (10-20); Calcium,Total 8.1 mg/dL (8.5-10.1); Chloride 98 mmol/L (98-107); Creatinine, Serum 0.97 mg/dL (0.55-1.02); EST Glomerular Filtration Rate 60 mL/min (>60); Est Glom Filt Rate - Afr Amer 72 mL/min (>60); Estimated Creatinine Clearance 39.56 ml/min; Glucose 252 mg/dL (74-106); Potassium 2.9 mmol/L (3.5-5.1); Sodium Level 140 mmol/L (136-145)
--- NOTE | 2019-04-13 16:25 | RAD_ITS ---
STUDY: X-RAY - LEFT FOOT CLINICAL: Female, 73 years old. Edema and swelling of the lower leg. TECHNIQUE: 3 view(s) of the foot. COMPARISON: None. FINDINGS: Normal talus, calcaneus, and tarsal bones. Normal visualized subtalar, talonavicular, calcaneocuboid, tarsal and tarsometatarsal articulations. Normal metatarsi. Normal metatarsophalangeal joint of the great toe. Normal tibial and fibular sesamoid bones. Normal interphalangeal joint of the great toe. Normal phalanges of the great toe. Normal second through fifth metatarsophalangeal joints. Normal interphalangeal joints and phalanges of the lesser toes. The soft tissue structures are unremarkable. RAD/Foot min 3 Views IMPRESSION: Normal x-ray examination of the foot. Electronically Signed: Logan Zavala DO at 16:48 EST Tel [phone], Service support ,
--- NOTE | 2019-04-13 16:30 | RAD_ITS ---
STUDY: X-RAY - LEFT ANKLE REASON FOR EXAM: Female, 73 years old. Lower leg edema and pain. TECHNIQUE: 3 view(s) of the ankle. COMPARISON: Left foot, April 13, 2019. Left tibia-fibula, December 01, 2015. FINDINGS: Normal visualized distal tibia and fibula. Normal medial and lateral malleoli. Normal tibiotalar articulation and ankle mortise. Normal visualized talus and calcaneus. The visualized subtalar, talonavicular, calcaneocuboid and tarsal articulations are normal. There is diffuse soft tissue swelling over the lower leg and ankle. RAD/Ankle min 3 Views IMPRESSION: Soft tissue swelling essentially unchanged from the previous study. There is no fracture or dislocation. Electronically Signed: Logan Zavala DO at 16:52 EST Tel [phone], Service support ,
--- NOTE | 2019-04-13 16:41 | ED.DEP ---
ED Disposition - Plan for ED Patient: Disposition: Home or Assisted Living Referrals: Zabrina Bain MD [Primary Care Provider] - 3-5 Days Additional Instructions: There is no specific cause at this time of the pain and swelling in her left lower leg. The ultrasound did not show any clot. There is no signs of infection. And the x-rays do not show any signs of any broken bones. Ovate your ankle. Tylenol for pain. Follow-up with your doctor if not improving.
--- NOTE | 2019-04-13 17:10 | PCM.HP.STD ---
<Kimmie Culp - Last Filed: 04/13/19 17:44> Problem List (1) Spondylosis of lumbosacral region without myelopathy or radiculopathy Status: Chronic (2) Acute diastolic CHF (congestive heart failure) Status: Chronic (3) Secondary pulmonary arterial hypertension Status: Chronic (4) Essential (primary) hypertension Status: Chronic (5) Right-sided heart failure Status: Acute (6) Obstructive sleep apnea Status: Chronic (7) Chronic obstructive pulmonary disease Status: Chronic (8) Nonrheumatic aortic valve stenosis Status: Chronic (9) Hyperlipidemia Status: Chronic History of Present Illness Date of Admission: 04/13/19 Chief Complaint: Left lower extremity pain and swelling. The patient is a 73 year old F who presents emergency room due to left lower extremity pain and swelling. Patient reports her cat scratched her left knee approximately 1 week ago and since that time has had increased swelling, pain and mild redness. She states over the past 2 days it has become increasingly worse and she is now having difficulty walking due to significant left lower extremity pain. She reports fever. Also reports ongoing nasal congestion, watery eyes. Denies cough, shortness of breath. Patient has a history of chronic diarrhea, not increased from her baseline. Denies other complaints. Her other past medical history includes chronic diastolic CHF, chronic hypoxic respiratory failure secondary to chronic COPD, type 2 diabetes mellitus, SCOTTY, overactive bladder, hypertension, hyperlipidemia, GERD, obesity, depression, history of lymphoma and chronic diarrhea. Past Medical History Past Medical History (Chronic Problems): Chronic Problems (Last Reviewed 11/07/18 @ 10:48 by Trevon Garsia MD) Spondylosis of lumbosacral region without myelopathy or radiculopathy (Chronic) Acute diastolic CHF (congestive heart failure) (Chronic) Secondary pulmonary arterial hypertension (Chronic) Essential (primary) hypertension (Chronic) Obstructive sleep apnea (Chronic) Chronic obstructive pulmonary disease (Chronic) Nonrheumatic aortic valve stenosis (Chronic) Hyperlipidemia (Chronic) Medical History: Medical History (Last Reviewed 11/07/18 @ 10:48 by Trevon Garsia MD) Secondary pulmonary arterial hypertension (Chronic) I27.21 Essential (primary) hypertension (Chronic) I10 Obstructive sleep apnea (Chronic) G47.33 Chronic obstructive pulmonary disease (Chronic) J44.9 Nonrheumatic aortic valve stenosis (Chronic) I35.0 Hyperlipidemia (Chronic) E78.5 Anxiety F41.9 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 Degeneration of intervertebral disc of lumbosacral region M51.37 Depression F32.9 Diabetes mellitus, type II E11.9 Diverticulosis K57.90 Fatty liver disease, nonalcoholic GERD (gastroesophageal reflux disease) K21.9 Hypothyroidism E03.9 IBS (irritable bowel syndrome) K58.9 Lumbar spinal stenosis M48.061 Morbid obesity E66.01 Non Hodgkin's lymphoma C85.90 Primary osteoarthritis of right hip M16.11 Radiculopathy of lumbosacral region M54.17 Sjogren's syndrome M35.00 Spinal stenosis of lumbosacral region M48.07 Spondylosis of lumbosacral region without myelopathy or radiculopathy M47.817 Tinea unguium B35.1 Type 2 diabetes mellitus with diabetic polyneuropathy E11.42 Breast pain, left N64.4 Neck pain M54.2 Pseudomonas aeruginosa infection A49.8 Allergies adhesive Allergy (Verified 04/13/19 14:01) Itching adhesive tape Allergy (Verified 04/13/19 14:01) Rash amoxicillin trihydrate [From Augmentin] Allergy (Verified 04/13/19 14:01) Hives Iodinated Contrast Media [Iodinated Contrast- Oral and IV Dye] Allergy (Verified 04/13/19 14:01) Shortness of breath latex Allergy (Verified 04/13/19 14:01) Rash Latex, Natural Rubber Allergy (Verified 04/13/19 14:01) Rash metronidazole [From Flagyl] Allergy (Verified 04/13/19 14:01) Hives Metronidazole HCl [From Flagyl] Allergy (Verified 04/13/19 14:01) Hives Penicillins [PCN] Allergy (Verified 04/13/19 14:01) Hives potassium clavulanate [From Augmentin] Allergy (Verified 04/13/19 14:01) Hives sulfamethoxazole [From Bactrim] Allergy (Verified 04/13/19 14:01) Hives hives trimethoprim [From Bactrim] Allergy (Verified 04/13/19 14:01) Hives hives diphenhydramine HCl [From Benadryl] Adverse Reaction (Verified 04/13/19 14:01) i could crawl to the ceiling i could crawl the ceiling omeprazole Adverse Reaction (Verified 04/13/19 14:01) Nausea promethazine HCl [From Phenergan] Adverse Reaction (Verified 04/13/19 14:01) Nausea antihistamine Allergy (Uncoded 04/13/19 14:01) i could crawl to the ceiling crawl the ceiling Home Medications: Ambulatory Orders Medication Instructions Recorded Albuterol Inhaler [Ventolin Hfa] 2 puff INHALATION Q6H PRN PRN 06/29/14 Levothyroxine [Synthroid] 25 mcg PO DAILY 06/29/14 Montelukast [Singulair] 10 mg PO QHS 06/29/14 Sertraline HCl [Zoloft] 200 mg PO QHS 06/29/14 Albuterol Aerosols [Ventolin 2.5 mg INHALATION Q4H PRN PRN 08/20/14 Aerosols] Atorvastatin Calcium [Lipitor] 40 mg PO QHS 09/18/15 Fluticasone 0.05% [Flonase Nasal 2 spray NASAL QHS 09/18/15 Leopold] Pregabalin [Lyrica] 50 mg PO TID 09/18/15 traZODone [Desyrel] 150 mg PO QHS 11/26/16 Multivitamin [Multiple Vitamins] 1 tab PO DAILY 10/11/17 Insulin Lispro [Humalog KwikPen] 12 unit SQ TIDCM 11/18/17 Magnesium Oxide [Magnesium] 400 mg PO DAILY 11/18/17 Nystatin Powder [Mycostatin Powder] 1 applic TOPICAL 4X/DAY PRN 03/31/18 busPIRone [Buspar] 15 mg PO BID 07/29/18 Fluticasone/Umeclidin/Vilanter 1 puff INHALATION DAILY 09/15/18 [Trelegy Ellipta 100-62.5-25] Furosemide 80 mg PO BID 09/15/18 Metoprolol Succinate 50 mg PO BID 09/15/18 Liraglutide [Victoza 2-Yan] 1.8 mg SQ DAILY #0 09/18/18 Acetaminophen [Tylenol] 1,000 mg PO BID 04/13/19 Azithromycin 250 mg PO DAILY 04/13/19 Dicyclomine HCl [Bentyl] 10 mg PO ACHS 04/13/19 Guaifenesin [Tussin] 60 mg PO BID 04/13/19 Insulin Glargine,Hum.rec.anlog 34 unit SUBCUT BID 04/13/19 [Lantus] Lisinopril [Zestril] 5 mg PO DAILY 04/13/19 Lorazepam 0.5 mg PO BID 04/13/19 Metformin HCl [Metformin HCl ER] 1,000 mg PO QHS 04/13/19 Methocarbamol 500 mg PO DAILY PRN PRN 04/13/19 Metoclopramide HCl [Reglan] 5 mg PO TID 04/13/19 Metolazone [Zaroxolyn] 5 mg PO DAILY 04/13/19 Mirabegron [Myrbetriq] 25 mg PO DAILY 04/13/19 Oxybutynin Chloride [Oxybutynin 15 mg PO DAILY 04/13/19 Chloride ER] Potassium Chloride [Klor-Con M10] 20 meq PO BID 04/13/19 Rabeprazole Sodium [Aciphex] 20 mg PO DAILY 04/13/19 Sucralfate [Carafate] 1 gm PO 1HR_ACHS 04/13/19 traMADol [Ultram (G)] 50 mg PO Q6H PRN PRN 04/13/19 Surgical History: Surgical History (Last Reviewed 11/07/18 @ 10:48 by Trevon Garsia MD) H/O hemorrhoidectomy (Resolved) Z98.890 History of left heart catheterization Onset Date: 2003 Z98.890 History of tonsillectomy (Resolved) Z90.89 S/P wrist surgery (Resolved) Z98.890 right Surgical History: adenoidectomy, tonsillectomy, - - Right breast hematoma removal, Left breast lumps removal, Right chest port, R Wrist surery, hemorrhoidectomy. 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 NURSE history Lives: Alone Smoking Status: Former smoker Alcohol: None Drugs: None - *Family History Offspring Family History: Family History (Last Reviewed 04/13/19 @ 17:18 by JAKOB HuddlestonC) Brother CAD (coronary artery disease) CVA (cerebral vascular accident) Brother Sudden cardiac Brother CAD (coronary artery disease) Mother Heart disease Father Brain aneurysm History Items: Cancer, Diabetes, Hypertension Maternal Family History: Family History (Last Reviewed 04/13/19 @ 17:18 by HEBERT Huddleston) Brother CAD (coronary artery disease) CVA (cerebral vascular accident) Brother Sudden cardiac Brother CAD (coronary artery disease) Mother Heart disease Father Brain aneurysm History Items: - Sibling Family History: Family History (Last Reviewed 04/13/19 @ 17:18 by HEBERT Huddleston) Brother CAD (coronary artery disease) CVA (cerebral vascular accident) Brother Sudden cardiac Brother CAD (coronary artery disease) Mother Heart disease Father Brain aneurysm History Items: - Review of Systems Constitutional: Reports: Fever. Denies: Chills, Weight Change Eyes: Reports: Redness HEENT: Reports: Nasal Congestion. Denies: Head Aches, Sinus Congestion, Sinus Drainage Cardiovascular: Reports: Edema - Left lower extremity. Denies: Chest Pain, Palpitations Respiratory: Denies: Cough, Shortness of breath at rest, Sputum production Gastrointestinal: Reports: - - Chronic diarrhea. Denies: Abdominal Pain, Nausea, Vomiting Genitourinary: Denies: Dysuria Musculoskeletal: Reports: - - Left leg pain. Denies: Joint Pain, Joint Tenderness Skin: Reports: - - 2 scratches left knee related to cat. Denies: Rash, Wounds Neurological: Denies: Numbness, Tingling, Focal weakness Psychiatric: Reports: Anxiety, Depression Hematologic/ Lymphatic: Denies: Easy Bruising, Easy Bleeding VTE Information - Inpt Only VTE Present on Admission: No VTE Mechan Device Prophylaxis: None VTE Pharm Prophylaxis ordered?: Yes - Physical Exam Vitals/I&O's: Vital Signs Temp Pulse Resp BP Pulse Ox 98.2 F 87 18 150/74 H 98 04/13/19 13:58 04/13/19 16:13 04/13/19 16:13 04/13/19 16:13 04/13/19 16:13 Oxygen Flow Rate (L/min) 3 Oxygen Delivery Method Nasal Cannula Weight: 244 lb 7.882 oz Body Mass Index (BMI) 46.2 Finger Stick Blood Glucose 204 General: Alert, Oriented x3, Cooperative HEENT: Atraumatic, PERRLA, EOMI, Normocephalic, - - Bilateral conjunctival redness Oral: Dry Mucosa Neck: Supple, No JVD, Negative Carotid Bruits Lungs: Clear to auscultation, Diminished Cardiovascular: Regular rate, Regular Rhythm, Normal S1, Normal S2 Abdomen: Bowel Sounds Present, Soft, Non Tender, Non-Distended, Obese Extremities: No clubbing, No cyanosis, Edema - Left lower extremity +2 edema Skin: - - Mild left lateral calf redness, to small left knee abrasions related to cat scratches Musculoskeletal: No Tenderness to Palpation of Joints or Extremities Neurological: Cranial nerves II-XII grossly intact, Neuro grossly intact Psych/Mental Status: Normal Affect, Appropriate Laboratory Results 04/13/19 15:10: WBC 10.4, RBC 3.81 L, Hgb 11.3 L, Hct 34.2 L, MCV 89.8, MCH 29.7, MCHC 33.0, RDW Std Deviation 50.0 H, RDW Coeff of Camilla 15.1 H, Plt Count 205, MPV 10.5, Immature Gran % (Auto) 0.800, Neut % (Auto) 81.2 H, Lymph % (Auto) 10.0 L, [place] % (Auto) 6.6, Eos % (Auto) 1.1, Baso % (Auto) 0.3, Absolute Neuts (auto) 8.4 H, Absolute Lymphs (auto) 1.03, Nucleated RBC % 0 04/13/19 15:10: Sodium 140, Potassium 2.9 L, Chloride 98, Carbon Dioxide 36.0 H, Anion Gap 6, BUN 19 H, Creatinine 0.97, Estim Creat Clear Calc 39.56, Est GFR (MDRD) Af Amer 72, Est GFR (MDRD) Non-Af 60, BUN/Creatinine Ratio 19.5, Glucose 252 H, Calcium 8.1 L 04/13/19 15:10: Uric Acid Pending Current Medications Piperacillin Sod/Tazobactam (Sod 4.5 gm/ Sodium Chloride) 100 mls @ 200 mls/hr IV X1 ONE Stop: 04/13/19 17:18 Assessment/Plan All Active Problems (Last Reviewed 11/07/18 @ 10:48 by Trevon Garsia MD) Right-sided heart failure (Acute) Cervicalgia (Resolved) Chest pain (Resolved) Diarrhea (Resolved) Gastroenteritis (Resolved) H/O hemorrhoidectomy (Resolved) History of tonsillectomy (Resolved) Hyperglycemia (Resolved) Hypokalemia (Resolved) Recent urinary tract infection (Resolved) S/P wrist surgery (Resolved) 1. Left lower extremity cellulitis, suspect secondary to recent cat scratch-DVT ruled out. IV Unasyn. Nish wraps. Elevate left lower extremity. Uric acid pending however doubtful of gout. PRN pain regimen. PT/OT. 2. Hypokalemia secondary to chronic diarrhea as a result of IBS as well as diuretic regimen-replace per protocol, trend BMP. Check magnesium. 3. Chronic diastolic CHF-echocardiogram September 2018 with EF 65%, stage I diastolic dysfunction, moderate aortic valve stenosis. 4. Chronic hypoxic respiratory failure secondary to chronic COPD- On trilogy at home. No acute COPD exacerbation. Continue supplement oxygen to maintain O2 sat above 90%. As needed albuterol aerosol. 5. Hypothyroidism-continue home Synthroid regimen. 6. Depression/anxiety-continue home sertraline, trazodone, lorazepam, BuSpar regimen. 7. Type 2 diabetes [id number] ACHS and sliding scale insulin. Hold home oral regimen. 8. SCOTTY-BiPAP nightly. 9. Overactive bladder-continue home oxybutynin regimen. 10. Hypertension-stable, continue home metoprolol, lisinopril regimen. 11. Hyperlipidemia-continue statin. 12. GERD-continue home Protonix, Carafate regimen. 13. Obesity-encouraged diet and lifestyle modifications. Nutrition consult. 14. History of non-Hodgkin's lymphoma-in remission. DVT prophylaxis-Heparin subcu This patient was seen by HEBERT Huddleston under the supervision of Dr. Wharton. <Deysi Wharton - Last Filed: 04/13/19 18:36> History of Present Illness The patient is a 73 year old F [] Past Medical History Medical History: Medical History (Last Reviewed 11/07/18 @ 10:48 by Trevon aGrsia MD) Secondary pulmonary arterial hypertension (Chronic) I27.21 Essential (primary) hypertension (Chronic) I10 Obstructive sleep apnea (Chronic) G47.33 Chronic obstructive pulmonary disease (Chronic) J44.9 Nonrheumatic aortic valve stenosis (Chronic) I35.0 Hyperlipidemia (Chronic) E78.5 Anxiety F41.9 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 Degeneration of intervertebral disc of lumbosacral region M51.37 Depression F32.9 Diabetes mellitus, type II E11.9 Diverticulosis K57.90 Fatty liver disease, nonalcoholic GERD (gastroesophageal reflux disease) K21.9 Hypothyroidism E03.9 IBS (irritable bowel syndrome) K58.9 Lumbar spinal stenosis M48.061 Morbid obesity E66.01 Non Hodgkin's lymphoma C85.90 Primary osteoarthritis of right hip M16.11 Radiculopathy of lumbosacral region M54.17 Sjogren's syndrome M35.00 Spinal stenosis of lumbosacral region M48.07 Spondylosis of lumbosacral region without myelopathy or radiculopathy M47.817 Tinea unguium B35.1 Type 2 diabetes mellitus with diabetic polyneuropathy E11.42 Breast pain, left N64.4 Neck pain M54.2 Pseudomonas aeruginosa infection A49.8 Allergies adhesive Allergy (Verified 04/13/19 14:01) Itching adhesive tape Allergy (Verified 04/13/19 14:01) Rash amoxicillin trihydrate [From Augmentin] Allergy (Verified 04/13/19 14:01) Hives Iodinated Contrast Media [Iodinated Contrast- Oral and IV Dye] Allergy (Verified 04/13/19 14:01) Shortness of breath latex Allergy (Verified 04/13/19 14:01) Rash Latex, Natural Rubber Allergy (Verified 04/13/19 14:01) Rash metronidazole [From Flagyl] Allergy (Verified 04/13/19 14:01) Hives Metronidazole HCl [From Flagyl] Allergy (Verified 04/13/19 14:01) Hives Penicillins [PCN] Allergy (Verified 04/13/19 14:01) Hives potassium clavulanate [From Augmentin] Allergy (Verified 04/13/19 14:01) Hives sulfamethoxazole [From Bactrim] Allergy (Verified 04/13/19 14:01) Hives hives trimethoprim [From Bactrim] Allergy (Verified 04/13/19 14:01) Hives hives diphenhydramine HCl [From Benadryl] Adverse Reaction (Verified 04/13/19 14:01) i could crawl to the ceiling i could crawl the ceiling omeprazole Adverse Reaction (Verified 04/13/19 14:01) Nausea promethazine HCl [From Phenergan] Adverse Reaction (Verified 04/13/19 14:01) Nausea antihistamine Allergy (Uncoded 04/13/19 14:01) i could crawl to the ceiling crawl the ceiling Surgical History: Surgical History (Last Reviewed 11/07/18 @ 10:48 by Trevon Garsia MD) H/O hemorrhoidectomy (Resolved) Z98.890 History of left heart catheterization Onset Date: 2003 Z98.890 History of tonsillectomy (Resolved) Z90.89 S/P wrist surgery (Resolved) Z98.890 right - *Family History Offspring Family History: Family History (Last Reviewed 04/13/19 @ 17:18 by HEBERT Huddleston) Brother CAD (coronary artery disease) CVA (cerebral vascular accident) Brother Sudden cardiac Brother CAD (coronary artery disease) Mother Heart disease Father Brain aneurysm Maternal Family History: Family History (Last Reviewed 04/13/19 @ 17:18 by HEBERT Huddleston) Brother CAD (coronary artery disease) CVA (cerebral vascular accident) Brother Sudden cardiac Brother CAD (coronary artery disease) Mother Heart disease Father Brain aneurysm Sibling Family History: Family History (Last Reviewed 04/13/19 @ 17:18 by HEBERT Huddleston) Brother CAD (coronary artery disease) CVA (cerebral vascular accident) Brother Sudden cardiac Brother CAD (coronary artery disease) Mother Heart disease Father Brain aneurysm - Physical Exam Vitals/I&O's: Vital Signs Temp Pulse Resp BP Pulse Ox 97.8 F 87 18 154/87 H 97 04/13/19 17:23 04/13/19 17:23 04/13/19 17:23 04/13/19 17:23 04/13/19 17:23 Oxygen Flow Rate (L/min) 3 Oxygen Delivery Method Nasal Cannula Weight: 110.9 kg Body Mass Index (BMI) 46.2 Finger Stick Blood Glucose 204 Laboratory Results 04/13/19 15:10: WBC 10.4, RBC 3.81 L, Hgb 11.3 L, Hct 34.2 L, MCV 89.8, MCH 29.7, MCHC 33.0, RDW Std Deviation 50.0 H, RDW Coeff of Camilla 15.1 H, Plt Count 205, MPV 10.5, Immature Gran % (Auto) 0.800, Neut % (Auto) 81.2 H, Lymph % (Auto) 10.0 L, [place] % (Auto) 6.6, Eos % (Auto) 1.1, Baso % (Auto) 0.3, Absolute Neuts (auto) 8.4 H, Absolute Lymphs (auto) 1.03, Nucleated RBC % 0 04/13/19 15:10: Sodium 140, Potassium 2.9 L, Chloride 98, Carbon Dioxide 36.0 H, Anion Gap 6, BUN 19 H, Creatinine 0.97, Estim Creat Clear Calc 39.56, Est GFR (MDRD) Af Amer 72, Est GFR (MDRD) Non-Af 60, BUN/Creatinine Ratio 19.5, Glucose 252 H, Calcium 8.1 L 04/13/19 15:10: Uric Acid 14.6 H Assessment/Plan This patient was seen in conjunction with Kimmie Culp. I have independently interviewed and examined the patient and reviewed pertinent historical, laboratory, and other data. I have reviewed her note and concur with her documentation CC: Left foot pain, inability to walk ongoing for 1 week HPI: 73-year-old with multiple comorbidities who presented with pain and inability to walk ongoing for 1 week. Patient has a history of having her cat scratch her on her knee and subsequently has been unable to work. Denies any fever chills or nausea vomiting. She is chronically on 2 to 3 L of oxygen but has nasal congestion with cough. She has chronic diarrhea which is unchanged. PMHx: As above PSHx: As above FHX: CAD in brother, mother, brain aneurysm in father SHX: Denies any smoking or use of alcohol or illicit drugs Physical Exam: Vitals: Temperature is 98.2 F, heart rate 99, blood pressure 154/61, respiratory 18, SPO2 is 92% on 3 L of oxygen. Gen: Morbidly obese, not pale, not jaundiced CVS:HS I +II, regular, no murmurs RESP: Generally diminished, no wheezes heard GI: BS present and normal, soft, nontender, no palpable organs EXT:marked swelling of left leg, minimal erythema of left lateral malleolar region, no differential warmth Labs: WBC count is 10.4, Hb 11.3, platelet count is 205, sodium 140, potassium 2.9, chloride 90, Bicarbonate 36, BUN is 19, creatinine 0.97, glucose 252, uric acid 14.6, calcium 8.1 ASSESSMENT: 1. LLE swelling and pain likely secondaryto acute gout of the left foot 2. Hypokalemia 3. Chronic diarrhea 4. Chronic diastolic CHF 5. Hypothyroidism 6. Anxiety/depression 7. Type 2 DM 8. SCOTTY 9. Hypertension 10. GERD 11. Morbid obesity, BMI 46.2 Plan: Start colchicine, allopurinol Podiatry consult Replace potassium Repeat blood work in am Continue rest of medications - home insulin, antihypertensives Code Visit Inpatient E&M: 02174 Init Hosp L3
[2019-04-13 17:38] LABS: Uric Acid 14.6 mg/dL (2.6-6.0)
[2019-04-13 18:44] LABS: AST(SGOT) 28 U/L (15-37); Alanine Aminotransfer ALT/SGPT 35 U/L (13-56); Albumin, Serum 3.3 g/dL (3.2-5.0); Alkaline Phosphatase 112 U/L (45-117); Bilirubin, Direct 0.16 mg/dL (0.00-0.30); Globulin 3.5 g/dL (2.2-4.2); Magnesium 1.4 mg/dL (1.6-2.6); Protein, Total 6.8 g/dL (6.4-8.2)
[2019-04-13] MEDS: 0.9% Normal Saline 1,000 ML 75 ML IV (18:50)
[2019-04-13] MEDS: Morphine 2 MG/ML Syringe IV ×2 (18:51→22:17)
[2019-04-13] MEDS: Potassium Chloride 10mEq/100mL 10 MEQ/100 ML IV.SOLN. 100 MEQ IV BOLUS ×4 (18:51→22:15)
[2019-04-13] MEDS: Ipratropium/Albuterol Sulfate 3 ML AMPUL.NEB INHALATION (19:35)
[2019-04-13] MEDS: Allopurinol 100 MG Tablet PO (19:52)
[2019-04-13] MEDS: Acetaminophen 325 MG Tablet 650 MG PO (20:14)
[2019-04-13] MEDS: traZODone 100 MG Tablet 150 MG PO (22:18)
[2019-04-13] MEDS: busPIRone 15 MG TABLET PO (22:18)
[2019-04-13] MEDS: Heparin Injection (Vial) 5,000 UNIT/ML VIAL 5000 UNIT SC (22:18)
[2019-04-13] MEDS: Dicyclomine 10 MG Capsule PO (22:18)
[2019-04-13] MEDS: Metoprolol(XL)Succ 50 MG Tablet PO (22:18)
[2019-04-13] MEDS: Montelukast 10 MG Tablet PO (22:18)
[2019-04-13] MEDS: Sertraline 100 MG Tablet 200 MG PO (22:19)
[2019-04-13] MEDS: Sucralfate 1 GM Tablet PO (22:19)
[2019-04-13] MEDS: Atorvastatin Calcium 40 MG Tablet PO (22:19)
[2019-04-13] MEDS: Fluticasone 0.05% 1 SPRAY NASAL.SRY 2 SPRAY NASAL (22:20)
[2019-04-13 22:25] LABS: Bedside Glucose 130 mg/dL (70-110)
[2019-04-13] MEDS: Pregabalin 50 MG Capsule PO (22:36)
[2019-04-14] VITALS (15 sets, daily range): BP systolic 114–145; BP diastolic 52–61; PULSE 83–107; RESP 18–22; TEMP 36.9–37.7; O2SAT 93–100
[2019-04-14] MEDS: oxyCODONE 5 MG Tablet PO (00:25)
--- NOTE | 2019-04-14 03:53 | CPS ---
pt became upset and didn't want bipap back on after bed change.
[2019-04-14] MEDS: 0.9% Saline Lock 10 ML Syringe IV ×3 (05:30→21:16)
[2019-04-14 05:41] LABS: Hematocrit 34.2 % (37-47); Mean Corp Hgb Conc 32.2 g/dL (32-36); Mean Corpuscular Hgb 29.3 pg (27.0-32.0); Mean Platelet Vol. 10.3 fl (6.2-12.0); Platelet Count 189 K/mm3 (150-450); RBC Distribution Width CV 14.9 % (11.6-14.6); RBC Distribution Width SD 49.4 fl (35.1-43.9); Red Blood Count 3.76 M/mm3 (4.2-5.4); White Blood Count 11.8 K/mm3 (4.4-11.0)
[2019-04-14] MEDS: Morphine 2 MG/ML Syringe IV ×2 (06:02→21:15)
[2019-04-14] MEDS: Metoclopramide 5 MG TABLET PO ×3 (06:03→17:14)
[2019-04-14] MEDS: Heparin Injection (Vial) 5,000 UNIT/ML VIAL 5000 UNIT SC ×3 (06:03→21:01)
[2019-04-14] MEDS: Dicyclomine 10 MG Capsule PO ×4 (06:03→21:01)
[2019-04-14] MEDS: Sucralfate 1 GM Tablet PO ×4 (06:03→21:01)
[2019-04-14] MEDS: Pregabalin 50 MG Capsule PO ×3 (06:03→21:15)
[2019-04-14] MEDS: Levothyroxine 25 MCG TABLET PO (06:04)
[2019-04-14 06:10] LABS: Anion Gap 4 (5-15); BUN 14 mg/dL (7-18); BUN/Creat Ratio 19.2 RATIO (10-20); Calcium,Total 8.1 mg/dL (8.5-10.1); Chloride 96 mmol/L (98-107); Creatinine, Serum 0.73 mg/dL (0.55-1.02); EST Glomerular Filtration Rate 83 mL/min (>60); Est Glom Filt Rate - Afr Amer 101 mL/min (>60); Estimated Creatinine Clearance 38.37 ml/min; Glucose 181 mg/dL (74-106); Sodium Level 137 mmol/L (136-145)
--- NOTE | 2019-04-14 06:36 | CON.PCM_ITS ---
Problem List (1) Gout of left foot Status: Acute (2) Pain in left ankle and joints of left foot Status: Acute (3) Edema of left lower extremity Status: Chronic (4) Right foot pain Status: Acute Reason for Consult Date of Consultation: 04/14/19 Reason for Consultation: Left lower extremity pain History of Present Illness: The patient is a 73 year old F with significant past medical history of chronic diastolic CHF, chronic hypoxic respiratory failure secondary to chronic COPD, type 2 diabetes mellitus, sleep apnea, overactive bladder, hypertension, hyperlipidemia, GERD, obesity, depression, history of lymphoma and chronic diarrhea who is currently admitted for left lower extremity pain. Xrays were obtained and her venous doppler was negative for blood clot. She relates the onset was 1 week ago with progressive worsening about 2 to 3 days ago. She denies specific trauma. She thinks her cat scratched her knee last week. Her pain is sharp and constant and even sensitive to light with her bed sheets. She denies bruising on the left lower extremity. She also complains of right foot pain that was previously similar with an onset of 1 month ago. This is now significantly improved and is now an aching. She also dropped a basket on her right foot which resulted in bruising last week. She is unable to bear weight. Past Medical History Past Medical History (Chronic Problems): Chronic Problems (Last Reviewed 11/07/18 @ 10:48 by Trevon Garsia MD) Spondylosis of lumbosacral region without myelopathy or radiculopathy (Chronic) Edema of left lower extremity (Chronic) Acute diastolic CHF (congestive heart failure) (Chronic) Secondary pulmonary arterial hypertension (Chronic) Essential (primary) hypertension (Chronic) Obstructive sleep apnea (Chronic) Chronic obstructive pulmonary disease (Chronic) Nonrheumatic aortic valve stenosis (Chronic) Hyperlipidemia (Chronic) Medical History: Medical History (Last Reviewed 11/07/18 @ 10:48 by Trevon Garsia MD) Secondary pulmonary arterial hypertension (Chronic) I27.21 Essential (primary) hypertension (Chronic) I10 Obstructive sleep apnea (Chronic) G47.33 Chronic obstructive pulmonary disease (Chronic) J44.9 Nonrheumatic aortic valve stenosis (Chronic) I35.0 Hyperlipidemia (Chronic) E78.5 Anxiety F41.9 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 Degeneration of intervertebral disc of lumbosacral region M51.37 Depression F32.9 Diabetes mellitus, type II E11.9 Diverticulosis K57.90 Fatty liver disease, nonalcoholic GERD (gastroesophageal reflux disease) K21.9 Hypothyroidism E03.9 IBS (irritable bowel syndrome) K58.9 Lumbar spinal stenosis M48.061 Morbid obesity E66.01 Non Hodgkin's lymphoma C85.90 Primary osteoarthritis of right hip M16.11 Radiculopathy of lumbosacral region M54.17 Sjogren's syndrome M35.00 Spinal stenosis of lumbosacral region M48.07 Spondylosis of lumbosacral region without myelopathy or radiculopathy M47.817 Tinea unguium B35.1 Type 2 diabetes mellitus with diabetic polyneuropathy E11.42 Breast pain, left N64.4 Neck pain M54.2 Pseudomonas aeruginosa infection A49.8 Allergies adhesive Allergy (Verified 04/13/19 14:01) Itching adhesive tape Allergy (Verified 04/13/19 14:01) Rash amoxicillin trihydrate [From Augmentin] Allergy (Verified 04/13/19 14:01) Hives Iodinated Contrast Media [Iodinated Contrast- Oral and IV Dye] Allergy (Verified 04/13/19 18:11) Anaphylaxis latex Allergy (Verified 04/13/19 14:01) Rash Latex, Natural Rubber Allergy (Verified 04/13/19 14:01) Rash metronidazole [From Flagyl] Allergy (Verified 04/13/19 14:01) Hives Metronidazole HCl [From Flagyl] Allergy (Verified 04/13/19 14:01) Hives Penicillins [PCN] Allergy (Verified 04/13/19 14:01) Hives potassium clavulanate [From Augmentin] Allergy (Verified 04/13/19 14:01) Hives sulfamethoxazole [From Bactrim] Allergy (Verified 04/13/19 14:01) Hives hives trimethoprim [From Bactrim] Allergy (Verified 04/13/19 14:01) Hives hives diphenhydramine HCl [From Benadryl] Adverse Reaction (Verified 04/13/19 18:11) i could crawl to the ceiling/diaphoresis/tremor i could crawl the ceiling omeprazole Adverse Reaction (Verified 04/13/19 14:01) Nausea promethazine HCl [From Phenergan] Adverse Reaction (Verified 04/13/19 14:01) Nausea antihistamine Allergy (Uncoded 04/13/19 18:11) i could crawl to the ceiling/sleepy/disoriented crawl the ceiling Home Medications: Ambulatory Orders Medication Instructions Recorded Albuterol Inhaler [Ventolin Hfa] 2 puff INHALATION Q6H PRN PRN 06/29/14 Levothyroxine [Synthroid] 25 mcg PO DAILY 06/29/14 Montelukast [Singulair] 10 mg PO QHS 06/29/14 Sertraline HCl [Zoloft] 200 mg PO QHS 06/29/14 Albuterol Aerosols [Ventolin 2.5 mg INHALATION Q4H PRN PRN 08/20/14 Aerosols] Atorvastatin Calcium [Lipitor] 40 mg PO QHS 09/18/15 Fluticasone 0.05% [Flonase Nasal 2 spray NASAL QHS 09/18/15 [place]] Pregabalin [Lyrica] 50 mg PO TID 09/18/15 traZODone [Desyrel] 150 mg PO QHS 11/26/16 Multivitamin [Multiple Vitamins] 1 tab PO DAILY 10/11/17 Insulin Lispro [Humalog KwikPen] 12 unit SQ TIDCM 11/18/17 Magnesium Oxide [Magnesium] 400 mg PO DAILY 11/18/17 Nystatin Powder [Mycostatin Powder] 1 applic TOPICAL 4X/DAY PRN 03/31/18 busPIRone [Buspar] 15 mg PO BID 07/29/18 Fluticasone/Umeclidin/Vilanter 1 puff INHALATION DAILY 09/15/18 [Trelegy Ellipta 100-62.5-25] Furosemide 80 mg PO BID 09/15/18 Metoprolol Succinate 50 mg PO BID 09/15/18 Liraglutide [Victoza 2-Yan] 1.8 mg SQ DAILY #0 09/18/18 Acetaminophen [Tylenol] 1,000 mg PO BID 04/13/19 Azithromycin 250 mg PO DAILY 04/13/19 Dicyclomine HCl [Bentyl] 10 mg PO ACHS 04/13/19 Guaifenesin [Tussin] 60 mg PO BID 04/13/19 Insulin Glargine,Hum.rec.anlog 34 unit SUBCUT BID 02/03/20 [Lantus] Lisinopril [Zestril] 5 mg PO DAILY 04/13/19 Lorazepam 0.5 mg PO BID 04/13/19 Metformin HCl [Metformin HCl ER] 1,000 mg PO QHS 04/13/19 Methocarbamol 500 mg PO DAILY PRN PRN 04/13/19 Metoclopramide HCl [Reglan] 5 mg PO TID 04/13/19 Metolazone [Zaroxolyn] 5 mg PO DAILY 04/13/19 Mirabegron [Myrbetriq] 25 mg PO DAILY 04/13/19 Oxybutynin Chloride [Oxybutynin 15 mg PO DAILY 04/13/19 Chloride ER] Potassium Chloride [Klor-Con M10] 20 meq PO BID 04/13/19 Rabeprazole Sodium [Aciphex] 20 mg PO DAILY 04/13/19 Sucralfate [Carafate] 1 gm PO 1HR_ACHS 04/13/19 traMADol [Ultram (G)] 50 mg PO Q6H PRN PRN 04/13/19 Surgical History: Surgical History (Last Reviewed 11/07/18 @ 10:48 by Trevon Garsia MD) H/O hemorrhoidectomy (Resolved) Z98.890 History of left heart catheterization Onset Date: 2003 Z History of tonsillectomy (Resolved) Z90.89 S/P wrist surgery (Resolved) Z98.890 right Surgical History: adenoidectomy, tonsillectomy, - - Right breast hematoma removal, Left breast lumps removal, Right chest port, R Wrist surery, hemorrhoidectomy. 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: Anxiety, Depression RESEARCH LAB ASSISTANT History: No pertinent RESEARCH LAB ASSISTANT history Lives: Alone Smoking Status: Former smoker Tobacco Use: Cigarettes Alcohol: None Drugs: None - *Family History Offspring Family History: Family History (Last Reviewed 04/13/19 @ 17:18 by HEBERT Huddleston) Brother CAD (coronary artery disease) CVA (cerebral vascular accident) Brother Sudden cardiac Brother CAD (coronary artery disease) Mother Heart disease Father Brain aneurysm History Items: Cancer, Diabetes, Hypertension Maternal Family History: Family History (Last Reviewed 04/13/19 @ 17:18 by HEBERT Huddleston) Brother CAD (coronary artery disease) CVA (cerebral vascular accident) Brother Sudden cardiac Brother CAD (coronary artery disease) Mother Heart disease Father Brain aneurysm History Items: - Sibling Family History: Family History (Last Reviewed 04/13/19 @ 17:18 by HEBERT Huddleston) Brother CAD (coronary artery disease) CVA (cerebral vascular accident) Brother Sudden cardiac Brother CAD (coronary artery disease) Mother Heart disease Father Brain aneurysm History Items: - Review of Systems Constitutional: Denies: Chills, Fever Cardiovascular: Denies: Chest Pain, Claudication Respiratory: Reports: Shortness of Breath Gastrointestinal: Denies: Nausea Musculoskeletal: Reports: Foot Pain, Leg Pain Skin: Reports: Skin Changes. Denies: Wounds Neurological: Reports: Balance problems, Numbness Psychiatric: Reports: Anxiety Hematologic/ Lymphatic: Reports: Easy Bruising, Easy Bleeding Patient Problems: Active and Suspected Problems (Last Reviewed 11/07/18 @ 10:48 by Trevon Garsia MD) Gout of left foot (Acute) Pain in left ankle and joints of left foot (Acute) Right foot pain (Acute) - Physical Exam Vitals/I&O's: Vital Signs Temp Pulse Resp BP Pulse Ox 98.7 F 89 18 114/52 L 95 04/14/19 04:00 04/14/19 04:00 04/14/19 04:00 04/14/19 04:00 04/14/19 04:00 Oxygen Flow Rate (L/min) 3 Oxygen Delivery Method Nasal Cannula Weight: 110.1 kg Body Mass Index (BMI) 45.1 Finger Stick Blood Glucose 204 Intake and Output for Last 24 Hours 04/12/19 04/13/19 04/14/19 23:59 23:59 23:59 Intake Total 980 / 980 Output Total 550 / 550 Balance 430 / 430 General: Alert, Oriented x3, Cooperative HEENT: Atraumatic Extremities: No cyanosis, Capillary Refill Less than 3 Seconds, No Calf Tenderness - Negative Maya sign bilateral, Diminished Peripheral Pulses - Palpable right PT and bilateral DP. Nonpalpable left PT secondary to probable edema Skin: - - There is no skin discontinuity, palpable abscess, necrosis or drainage. There is diffuse erythema and calor surrounding the left hindfoot and ankle that extends onto the leg. The compartments to bilateral lower extremity are soft to palpate. There is no interdigital maceration bilateral Musculoskeletal: Muscle Wasting, Tenderness - Pain on palpation to subtalar joint and with passive inversion eversion left lower extremity. There is also secondary pain palpation around the distal fibula and not as much to the anterior ankle joint line left. There is pain with passive range of motion of the ankle and subtalar joint on the left lower extremity without crepitation there is also very mild pain palpation of the first metatarsal phalangeal joint of the right foot with diminished limited passive range of motion. Neurological: Sensory exam intact to light touch and pain - Hypersensitivity to light touch left lower extremity Psych/Mental Status: Normal Affect, Appropriate Laboratory Results 04/13/19 15:10: WBC 10.4, RBC 3.81 L, Hgb 11.3 L, Hct 34.2 L, MCV 89.8, MCH 29.7, MCHC 33.0, RDW Std Deviation 50.0 H, RDW Coeff of Camilla 15.1 H, Plt Count 205, MPV 10.5, Immature Gran % (Auto) 0.800, Neut % (Auto) 81.2 H, Lymph % (Auto) 10.0 L, Chester % (Auto) 6.6, Eos % (Auto) 1.1, Baso % (Auto) 0.3, Absolute Neuts (auto) 8.4 H, Absolute Lymphs (auto) 1.03, Nucleated RBC % 0 04/13/19 15:10: Sodium 140, Potassium 2.9 L, Chloride 98, Carbon Dioxide 36.0 H, Anion Gap 6, BUN 19 H, Creatinine 0.97, Estim Creat Clear Calc 39.56, Est GFR (MDRD) Af Amer 72, Est GFR (MDRD) Non-Af 60, BUN/Creatinine Ratio 19.5, Glucose 252 H, Calcium 8.1 L 04/13/19 15:10: Uric Acid 14.6 H 04/13/19 15:10: Magnesium 1.4 L, Total Bilirubin 0.40, Direct Bilirubin 0.16, AST 28, ALT 35, Alkaline Phosphatase 112, Total Protein 6.8, Albumin 3.3, Globulin 3.5 04/13/19 22:12: POC Glucose 130 H 04/14/19 05:28: WBC 11.8 H, RBC 3.76 L, Hgb 11.0 L, Hct 34.2 L, MCV 91.0, MCH 29.3, MCHC 32.2, RDW Std Deviation 49.4 H, RDW Coeff of Camilla 14.9 H, Plt Count 189, MPV 10.3 04/14/19 05:28: Sodium 137, Potassium 3.0 L, Chloride 96 L, Carbon Dioxide 37.0 H, Anion Gap 4 L, BUN 14, Creatinine 0.73, Estim Creat Clear Calc 38.37, Est GFR (MDRD) Af Amer 101, Est GFR (MDRD) Non-Af 83, BUN/Creatinine Ratio 19.2, Glucose 181 H, Calcium 8.1 L Current Medications Acetaminophen (Tylenol) 650 mg PO Q6H PRN PRN PRN Reason: Pain Score 1-10/Temp > 100.7 F Last Admin: 04/13/19 20:14 Dose: 650 mg Documented by: Al Hydroxide/Mg Hydroxide (Mylanta Ii) 30 ml PO Q6H PRN PRN PRN Reason: Gastric Burning Albuterol Sulfate (Ventolin Aerosols) 2.5 mg INHALATION Q2H PRN PRN PRN Reason: SHORTNESS OF BREATH Albuterol/Ipratropium (Duoneb) 3 ml INHALATION Q4HWA.RT [facility] Last Admin: 04/13/19 19:35 Dose: 3 ml Documented by: [facility] Last Admin: 04/13/19 19:52 Dose: 100 mg Documented by: Atorvastatin Calcium (Lipitor) 40 mg PO QHS [facility] Last Admin: 04/13/19 22:19 Dose: 40 mg Documented by: Buspirone HCl (Buspar) 15 mg PO BID [facility] Last Admin: 04/13/19 22:18 Dose: 15 mg Documented by: Colchicine (Colchicine) 0.6 mg PO BID [facility] Last Admin: 04/13/19 22:19 Dose: 0.6 mg Documented by: Dicyclomine HCl (Bentyl) 10 mg PO ACHS [facility] Last Admin: 04/14/19 06:03 Dose: 10 mg Documented by: Fluticasone Propionate (Flonase Nasal [place]) 2 spray NASAL QHS [facility] Last Admin: 04/13/19 22:20 Dose: 2 spray Documented by: Glucagon () 1 mg IM .X1 PRN PRN Reason: Hypoglycemia Heparin Sodium (Porcine) (Heparin Na) 5,000 unit SC Q8 [facility] Last Admin: 04/14/19 06:03 Dose: 5,000 unit Documented by: Sodium Chloride () 1,000 mls @ 75 mls/hr IV .[id number] [facility] Stop: 04/14/19 07:13 Last Admin: 04/13/19 18:50 Dose: 75 mls/hr Documented by: Dextrose (Dextrose 10%-Water) 250 mls @ 999 mls/hr IV .Q16M PRN; Protocol PRN Reason: HYPOGLYCEMIA Insulin Glargine (Lantus ([facility])) 34 units SC BID [facility] Last Admin: 04/13/19 22:21 Dose: 34 u Documented by: Insulin Human Lispro (Humalog Kwikpen ([facility])) 0 unit SC ACHS [facility]; Protocol Last Admin: 04/13/19 22:20 Dose: Not Given Documented by: Insulin Human Lispro (Humalog Kwikpen ([facility])) 12 unit SC TIDCM [facility] Levothyroxine Sodium (Synthroid) 25 mcg PO DAILY@0600 [facility] Last Admin: 04/14/19 06:04 Dose: 25 mcg Documented by: Lisinopril (Zestril) 5 mg PO DAILY [facility] Magnesium Oxide (Mag-Ox 400) 400 mg PO DAILY [facility] Metoclopramide HCl (Metoclopramide Hcl) 5 mg PO TIDAC [facility] Last Admin: 04/14/19 06:03 Dose: 5 mg Documented by: Metolazone (Zaroxolyn) 5 mg PO DAILY [facility] Metoprolol Succinate (Toprol Xl (Beta Gisel)) 50 mg PO BID [facility] Last Admin: 04/13/19 22:18 Dose: 50 mg Documented by: Mirabegron (Myrbetriq) 25 mg PO DAILY [facility] Montelukast Sodium (Singulair) 10 mg PO QHS [facility] Last Admin: 04/13/19 22:18 Dose: 10 mg Documented by: Morphine Sulfate () 1 - 2 mg IV Q3H PRN PRN PRN Reason: Pain Score 1-10/10 Last Admin: 04/14/19 06:02 Dose: 2 mg Documented by: Multivitamins (Multivitamin) 1 tablet PO DAILY@0800 [facility] Nitroglycerin (Nitrostat) 0.4 mg SUBLINGUAL Q5M PRN PRN Reason: CARDIAC/CHEST PAIN Nutritional Formula (Lactose Free) (Ensure Enlive) 120 ml PO 4X/DAY [facility] Last Admin: 04/13/19 22:16 Dose: 120 ml Documented by: Ondansetron HCl (Zofran) 4 mg IV Q8H PRN PRN PRN Reason: NAUSEA/VOMITING Pantoprazole Sodium (Protonix) 20 mg PO DAILY [facility] Potassium Chloride (K-Dur) 40 meq PO BIDCM [facility] Pregabalin (Lyrica) 50 mg PO TID [facility] Last Admin: 04/14/19 06:03 Dose: 50 mg Documented by: Psyllium Hydrophilic Mucilloid (Metamucil) 1 packet PO DAILY PRN PRN PRN Reason: Constipation Sertraline HCl (Zoloft) 200 mg PO QHS [facility] Last Admin: 04/13/19 22:19 Dose: 200 mg Documented by: Sodium Chloride () 10 - 40 ml IV UD PRN PRN Reason: SALINE FLUSH Last Admin: 04/14/19 05:30 Dose: 30 ml Documented by: Sucralfate (Carafate) 1 gm PO 1HR_ACHS [facility] Last Admin: 04/14/19 06:03 Dose: 1 gm Documented by: Tolterodine Tartrate (Detrol La) 4 mg PO DAILY [facility] Trazodone HCl (Desyrel) 150 mg PO QHS [facility] Last Admin: 04/13/19 22:18 Dose: 150 mg Documented by: Assessment/Plan All Active Problems (Last Reviewed 11/07/18 @ 10:48 by Trevon Garsia MD) Gout of left foot (Acute) Pain in left ankle and joints of left foot (Acute) Right foot pain (Acute) Right-sided heart failure (Acute) Cervicalgia (Resolved) Chest pain (Resolved) Diarrhea (Resolved) Gastroenteritis (Resolved) H/O hemorrhoidectomy (Resolved) History of tonsillectomy (Resolved) Hyperglycemia (Resolved) Hypokalemia (Resolved) Recent urinary tract infection (Resolved) S/P wrist surgery (Resolved) Gout left subtalar joint and possible ankle Left lower extremity pain Edema Right foot injury Reviewed and discussed her case. Her vitals remained stable. She does have some leukocytosis and her uric acid is over 14. She was started on colchicine and allopurinol. I also recommend administration of a short course of steroid to also address her pain. Her diabetes status is noted and her glucose was about 180 mg/dL this morning. I recommend doing a joint aspiration for confirmation of diagnosis to the left subtalar joint which seems to be the main focus of her pain location. She verbally consented to this. Alcohol wipe was used to cleanse the skin. An 18 gauge needle was entered into the sinus tarsi and about 1.5 cc body fluid was obtained. She was premedicated with morphine. This was not tolerated well and a lot of motion occurred during this aspiration attempt. The fluids appears to be mainly bloody with some particulate noted. This will be sent for crystal analysis, body fluid/joint analysis, and for microbiology culture evaluation. The results are pending. She is sensitive to adhesive dressings and bandaids. Therefore a dry gauze and kerlix was applied. I also recommend immobilization with a left lower extremity walking boot. This will be ordered. She can elevate and ice for additional pain and inflammation management. An Nish wrap was also recommended and applied. In regards to her right foot this appears to be a secondary complaint and is overall stable. I recommend obtaining an updated foot x-ray to her previously reported injury and bruising pattern.. This will be ordered and the results are pending. Thank you for the consultation. I will continue to follow her close while in house. Please do not hesitate to call if you have any questions. Lou Gee DPM, FACFAS [facility] [phone]
[2019-04-14] MEDS: Ipratropium/Albuterol Sulfate 3 ML AMPUL.NEB INHALATION ×4 (06:55→18:52)
[2019-04-14] MEDS: Morphine 2 MG/ML Syringe 1 MG IV (07:09)
--- NOTE | 2019-04-14 08:13 | RAD_ITS ---
STUDY: X-RAY - RIGHT FOOT CLINICAL: Female, 73 years old. PT STATES RIGHT FOOT PAIN AND BRUISING X 2 WEEKS TECHNIQUE: 3 view(s) of the foot. COMPARISON: None. FINDINGS: There is a plantar calcaneal spur. Normal visualized subtalar, talonavicular, calcaneocuboid, tarsal and tarsometatarsal articulations. There is demineralization of the metatarsi. Normal metatarsophalangeal joint of the great toe. There is a bipartite tibial sesamoid. Normal interphalangeal joint of the great toe. Normal phalanges of the great toe. Normal second through fifth metatarsophalangeal joints. Normal interphalangeal joints and phalanges of the lesser toes. Diffuse soft tissue swelling. RAD/Foot min 3 Views IMPRESSION: Small calcaneal spur. Diffuse soft tissue swelling. Electronically Signed: Raghu Arnett, at 13:01 EST , Service support ,
[2019-04-14] MEDS: Acetaminophen 325 MG Tablet 650 MG PO (08:28)
[2019-04-14] MEDS: Insulin Lispro 100 UNIT/ML INSULN.PEN 12 UNIT SC ×3 (08:38→17:19)
[2019-04-14] MEDS: Insulin Lispro 100 UNIT/ML INSULN.PEN SC ×4 (08:39→21:02)
[2019-04-14 08:56] LABS: Bedside Glucose 170 mg/dL (70-110)
[2019-04-14 09:15] LABS: CRYSTALS, BODY FLUID See PATH REV
[2019-04-14 09:16] LABS: Source- Body Fluid SYNOVIAL
[2019-04-14 09:17] LABS: Body Fluid QC Type(s) BF1Q
[2019-04-14] MEDS: Tolterodine Tartrate 4 MG CAP.SA PO (10:04)
[2019-04-14] MEDS: Pantoprazole Sodium 20 MG Tablet PO (10:04)
[2019-04-14] MEDS: metOLazone 5 MG Tablet PO (10:04)
[2019-04-14] MEDS: busPIRone 15 MG TABLET PO ×2 (10:04→21:01)
[2019-04-14] MEDS: Lisinopril 5 MG Tablet PO (10:04)
[2019-04-14] MEDS: Mirabegron 25 MG TAB.ER.24H PO (10:04)
[2019-04-14] MEDS: Metoprolol(XL)Succ 50 MG Tablet PO ×2 (10:05→21:00)
[2019-04-14] MEDS: Magnesium Oxide 400 MG Tablet PO ×2 (10:07→21:00)
[2019-04-14] MEDS: Multivitamins,Therapeutic Tablet 1 TABLET PO (10:07)
[2019-04-14] MEDS: predniSONE 20 MG Tablet 40 MG PO (10:15)
--- NOTE | 2019-04-14 11:22 | CASEMGMT ---
RONAN CUNNINGHAM assessment: Face to Face with patient for initial transition planning/care coordination assessment. RONAN CUNNINGHAM introduced self and role at [facility], pt voices understanding and consents to assessment at this time. Pt is sitting up in bed in no distress at this time. Pt is A/Ox4 at this time and answers all questions appropriately at this time. Care providers, pharmacy, and demographics verified at this time. Presentation: Left foot pain Admitting dx: Hypokalemia, foot pain PCP: Taya Specialists: Sun, cardio; Lizette, surgeon; Top[facility] pulm Preferred Pharmacy: [facility]-pt states would like for meds to go to [facility] at discharge to make it easier at this time, but states normally prefers [facility]. Insurance: [employer] Prescription Benefit: Plan B Ac[employer]areAryngaSC Living Will/HPOA: Pt has LW/HPOA on file at [facility] at this but the only HPOA listed is her ex- per pt and pt states she would like to switch this at this time. Pt states that she would prefer her daughter, Yun Merrill, to be HPOA. Benja blanco, voices understanding. LNOK: Yun Merrill, daughter; Sree Gordillo, son Living Arrangements: Pt states lives alone in 1 story apt and states no concerns at home at this time. Pt states does get assist with ADL's from aides that she has daily set up through [facility] Caitie CUNNINGHAM. Pt states has aides 3hours M-F and 5hours on Sat/Sun and states all aides are through [place]. Transportation: Pt states has transportation set up through [facility] program and states no transportation concerns at this time. DME/HHC: Pt states has the following DME: rollater, BSC, grab bars, shower chair, lift chair, scooter, trilogy, and 3liters home oxygen thru [employer]. Pt states no need for any further DME at this time. Pt states [facility] past and pt has been to [facility] in the past. Pt states that she was told she would be provided with a walking boot. Pt states no concerns with going home at time of discharge. Pt states is retired. Pt states does not smoke and rarely drinks ETOH. Pt states no further concerns/needs at this time. CM to follow PT/OT evals and for any further discharge planning/needs. Advised pt to ask for CM if any further questions/concerns/needs arise, voices understanding. Pt Goal: Home Plan: Home Alem FERRARO CM
[2019-04-14 12:11] LABS: Bedside Glucose 173 mg/dL (70-110)
--- NOTE | 2019-04-14 14:05 | PN_ITS ---
<Kimmie Culp - Last Filed: 04/14/19 14:13> Patient Problems: Active and Suspected Problems (Last Reviewed 11/07/18 @ 10:48 by Trevon Garsia MD) Gout of left foot (Acute) Pain in left ankle and joints of left foot (Acute) Right foot pain (Acute) Subjective: Patient seen and examined. Continues to complain of significant left foot pain. Patient underwent joint aspiration by Dr. Gee. Left lower extremity currently wrapped in Nish wraps. - Physical Exam Vitals/I&O's: Vital Signs Temp Pulse Resp BP Pulse Ox 98.4 F 83 18 130/59 H 95 04/14/19 08:45 04/14/19 11:14 04/14/19 11:14 04/14/19 10:05 04/14/19 08:45 Oxygen Flow Rate (L/min) 3 Oxygen Delivery Method Nasal Cannula Weight: 242 lb 11.663 oz Body Mass Index (BMI) 45.1 Finger Stick Blood Glucose 204 Intake and Output for Last 24 Hours 04/12/19 04/13/19 04/14/19 23:59 23:59 23:59 Intake Total 980 / 980 1480 / 1480 Output Total 550 / 550 300 / 300 Balance 430 / 430 1180 / 1180 General: Alert, Oriented x3, Cooperative HEENT: Atraumatic, PERRLA, EOMI, Normocephalic Neck: Supple, No JVD, Negative Carotid Bruits Lungs: Clear to auscultation, Diminished Cardiovascular: Regular rate, Regular Rhythm, Normal S1, Normal S2 Abdomen: Bowel Sounds Present, Soft, Non Tender, Non-Distended, Obese Extremities: No clubbing, No cyanosis, Edema - Left lower extremity edema, Nish wrap in place Skin: No rashes, No breakdown Musculoskeletal: No Tenderness to Palpation of Joints or Extremities, Tenderness - Left lower extremity Neurological: Cranial nerves II-XII grossly intact, Neuro grossly intact Psych/Mental Status: Normal Affect, Appropriate Microbiology Past 72 Hours 04/13/19 19:45 Mucosa - Nose Respiratory Panel (PCR) - Final 04/14/19 07:05 Fluid - Synovial (joint) Gram Stain - Final Laboratory Results 04/13/19 15:10: WBC 10.4, RBC 3.81 L, Hgb 11.3 L, Hct 34.2 L, MCV 89.8, MCH 29.7, MCHC 33.0, RDW Std Deviation 50.0 H, RDW Coeff of Camilla 15.1 H, Plt Count 205, MPV 10.5, Immature Gran % (Auto) 0.800, Neut % (Auto) 81.2 H, Lymph % (Auto) 10.0 L, [place] % (Auto) 6.6, Eos % (Auto) 1.1, Baso % (Auto) 0.3, Absolute Neuts (auto) 8.4 H, Absolute Lymphs (auto) 1.03, Nucleated RBC % 0 04/13/19 15:10: Sodium 140, Potassium 2.9 L, Chloride 98, Carbon Dioxide 36.0 H, Anion Gap 6, BUN 19 H, Creatinine 0.97, Estim Creat Clear Calc 39.56, Est GFR (MDRD) Af Amer 72, Est GFR (MDRD) Non-Af 60, BUN/Creatinine Ratio 19.5, Glucose 252 H, Calcium 8.1 L 04/13/19 15:10: Uric Acid 14.6 H 04/13/19 15:10: Magnesium 1.4 L, Total Bilirubin 0.40, Direct Bilirubin 0.16, AST 28, ALT 35, Alkaline Phosphatase 112, Total Protein 6.8, Albumin 3.3, Globulin 3.5 04/13/19 22:12: POC Glucose 130 H 04/14/19 05:28: WBC 11.8 H, RBC 3.76 L, Hgb 11.0 L, Hct 34.2 L, MCV 91.0, MCH 29.3, MCHC 32.2, RDW Std Deviation 49.4 H, RDW Coeff of Camilla 14.9 H, Plt Count 189, MPV 10.3 04/14/19 05:28: Sodium 137, Potassium 3.0 L, Chloride 96 L, Carbon Dioxide 37.0 H, Anion Gap 4 L, BUN 14, Creatinine 0.73, Estim Creat Clear Calc 38.37, Est GFR (MDRD) Af Amer 101, Est GFR (MDRD) Non-Af 83, BUN/Creatinine Ratio 19.2, Glucose 181 H, Calcium 8.1 L 04/14/19 07:05: Fluid Crystals See PATH REV, Fluid Crystal Source SYNOVIAL, Synovial Source Cancelled, Synovial Color Cancelled, Synovial Appearance Cancelled, Synovial Volume Cancelled, Synovial Viscosity Cancelled, Synovial WBC Cancelled, Synovial RBC Cancelled, Synovial Tot Cell Ct Cancelled, Synov Polynuclear WBCs Cancelled, Synov Mononuclear WBCs Cancelled, Synovial Neutrophils Cancelled, Synovial Lymphocytes Cancelled, Synovial Monocytes Cancelled, Synovial Plasma Cells Cancelled, Synovial Other Cells Cancelled, Synovial Polynuclear % Cancelled, Synovial Mononuclear % Cancelled, Synovial Path Comment Cancelled 04/14/19 08:32: POC Glucose 170 H 04/14/19 12:03: POC Glucose 173 H Current Medications Acetaminophen (Tylenol) 650 mg PO Q6H PRN PRN PRN Reason: Pain Score 1-10/Temp > 100.7 F Last Admin: 04/14/19 08:28 Dose: 650 mg Documented by: Al Hydroxide/Mg Hydroxide (Mylanta Ii) 30 ml PO Q6H PRN PRN PRN Reason: Gastric Burning Albuterol Sulfate (Ventolin Aerosols) 2.5 mg INHALATION Q2H PRN PRN PRN Reason: SHORTNESS OF BREATH Albuterol/Ipratropium (Duoneb) 3 ml INHALATION Q4HWA.RT [facility] Last Admin: 04/14/19 10:56 Dose: 3 ml Documented by: Atorvastatin Calcium (Lipitor) 40 mg PO QHS [facility] Last Admin: 04/13/19 22:19 Dose: 40 mg Documented by: Buspirone HCl (Buspar) 15 mg PO BID [facility] Last Admin: 04/14/19 10:04 Dose: 15 mg Documented by: Colchicine (Colchicine) 0.6 mg PO BID [facility] Last Admin: 04/14/19 10:17 Dose: 0.6 mg Documented by: Dicyclomine HCl (Bentyl) 10 mg PO ACHS [facility] Last Admin: 04/14/19 12:10 Dose: 10 mg Documented by: Fluticasone Propionate (Flonase Nasal [place]) 2 spray NASAL QHS [facility] Last Admin: 04/13/19 22:20 Dose: 2 spray Documented by: Glucagon () 1 mg IM .X1 PRN PRN Reason: Hypoglycemia Heparin Sodium (Porcine) (Heparin Na) 5,000 unit SC Q8 [facility] Last Admin: 04/14/19 13:58 Dose: 5,000 unit Documented by: Dextrose (Dextrose 10%-Water) 250 mls @ 999 mls/hr IV .Q16M PRN; Protocol PRN Reason: HYPOGLYCEMIA Insulin Glargine (Lantus ([facility])) 34 units SC BID [facility] Last Admin: 04/14/19 08:39 Dose: 34 u Documented by: Insulin Human Lispro (Humalog Kwikpen ([facility])) 0 unit SC ACHS [facility]; Protocol Last Admin: 04/14/19 12:09 Dose: 1 units Documented by: Insulin Human Lispro (Humalog Kwikpen ([facility])) 12 unit SC TIDCM [facility] Last Admin: 04/14/19 12:09 Dose: 12 units Documented by: Levothyroxine Sodium (Synthroid) 25 mcg PO DAILY@0600 [facility] Last Admin: 04/14/19 06:04 Dose: 25 mcg Documented by: Lisinopril (Zestril) 5 mg PO DAILY [facility] Last Admin: 04/14/19 10:04 Dose: 5 mg Documented by: Magnesium Oxide (Mag-Ox 400) 400 mg PO DAILY [facility] Last Admin: 04/14/19 10:07 Dose: 400 mg Documented by: Metoclopramide HCl (Metoclopramide Hcl) 5 mg PO TIDAC [facility] Last Admin: 04/14/19 12:09 Dose: 5 mg Documented by: Metolazone (Zaroxolyn) 5 mg PO DAILY [facility] Last Admin: 04/14/19 10:04 Dose: 5 mg Documented by: Metoprolol Succinate (Toprol Xl (Beta Gisel)) 50 mg PO BID [facility] Last Admin: 04/14/19 10:05 Dose: 50 mg Documented by: Mirabegron (Myrbetriq) 25 mg PO DAILY [facility] Last Admin: 04/14/19 10:04 Dose: 25 mg Documented by: Montelukast Sodium (Singulair) 10 mg PO QHS [facility] Last Admin: 04/13/19 22:18 Dose: 10 mg Documented by: Morphine Sulfate () 1 - 2 mg IV Q3H PRN PRN PRN Reason: Pain Score 1-10/10 Last Admin: 04/14/19 06:02 Dose: 2 mg Documented by: Multivitamins (Multivitamin) 1 tablet PO DAILY@0800 [facility] Last Admin: 04/14/19 10:07 Dose: 1 tablet Documented by: Nitroglycerin (Nitrostat) 0.4 mg SUBLINGUAL Q5M PRN PRN Reason: CARDIAC/CHEST PAIN Ondansetron HCl (Zofran) 4 mg IV Q8H PRN PRN PRN Reason: NAUSEA/VOMITING Pantoprazole Sodium (Protonix) 20 mg PO DAILY [facility] Last Admin: 04/14/19 10:04 Dose: 20 mg Documented by: Potassium Chloride (K-Dur) 40 meq PO BIDCM [facility] Last Admin: 04/14/19 10:04 Dose: 40 meq Documented by: Prednisone () 40 mg PO DAILY@0800 [facility] Last Admin: 04/14/19 10:15 Dose: 40 mg Documented by: Pregabalin (Lyrica) 50 mg PO TID [facility] Last Admin: 04/14/19 13:58 Dose: 50 mg Documented by: Psyllium Hydrophilic Mucilloid (Metamucil) 1 packet PO DAILY PRN PRN PRN Reason: Constipation Sertraline HCl (Zoloft) 200 mg PO QHS [facility] Last Admin: 04/13/19 22:19 Dose: 200 mg Documented by: Sodium Chloride () 10 - 40 ml IV UD PRN PRN Reason: SALINE FLUSH Last Admin: 04/14/19 08:18 Dose: 10 ml Documented by: Sucralfate (Carafate) 1 gm PO 1HR_ACHS [facility] Last Admin: 04/14/19 12:10 Dose: 1 gm Documented by: Tolterodine Tartrate (Detrol La) 4 mg PO DAILY [facility] Last Admin: 04/14/19 10:04 Dose: 4 mg Documented by: Trazodone HCl (Desyrel) 150 mg PO QHS [facility] Last Admin: 04/13/19 22:18 Dose: 150 mg Documented by: Medical Necessity - Tobacco Use Smoking Status: Former smoker Tobacco Use: Cigarettes Assessment/Plan All Active Problems (Last Reviewed 11/07/18 @ 10:48 by Trevon Garsia MD) Gout of left foot (Acute) Pain in left ankle and joints of left foot (Acute) Right foot pain (Acute) Right-sided heart failure (Acute) Cervicalgia (Resolved) Chest pain (Resolved) Diarrhea (Resolved) Gastroenteritis (Resolved) H/O hemorrhoidectomy (Resolved) History of tonsillectomy (Resolved) Hyperglycemia (Resolved) Hypokalemia (Resolved) Recent urinary tract infection (Resolved) S/P wrist surgery (Resolved) 1. Left subtalar joint and possible ankle acute gout-DVT ruled out. Uric acid greater than 14. Podiatry consulted. Patient underwent joint aspiration left subtalar joint, cytology pending. Continue colchicine and prednisone. Nish wrap left lower extremity. PRN pain regimen. Elevate and ice left lower extremity. Left lower extremity immobilization. PT/OT. 2. Hypokalemia/hypomagnesia secondary to chronic diarrhea as a result of IBS as well as diuretic regimen-replace per protocol, trend BMP, magnesium. 3. Chronic diastolic CHF-echocardiogram September 2018 with EF 65%, stage I diastolic dysfunction, moderate aortic valve stenosis. Continue home Lasix regimen 4. Chronic hypoxic respiratory failure secondary to chronic COPD- On trilogy at home. No acute COPD exacerbation. Continue supplement oxygen to maintain O2 sat above 90%. As needed albuterol aerosol. 5. Hypothyroidism-continue home Synthroid regimen. 6. Depression/anxiety-continue home sertraline, trazodone, lorazepam, BuSpar regimen. 7. Type 2 diabetes [id number] ACHS and sliding scale insulin. Hold home oral regimen. 8. SCOTTY-BiPAP nightly. 9. Overactive bladder-continue home oxybutynin regimen. 10. Hypertension-stable, continue home metoprolol, lisinopril regimen. 11. Hyperlipidemia-continue statin. 12. GERD-continue home Protonix, Carafate regimen. 13. Obesity-encouraged diet and lifestyle modifications. Nutrition consult. 14. History of non-Hodgkin's lymphoma-in remission. DVT prophylaxis-Heparin subcu This patient was seen by HEBERT Huddleston under the supervision of Dr. Reyes. <Cristian Reyes F - Last Filed: 04/14/19 16:48> - Physical Exam Vitals/I&O's: Vital Signs Temp Pulse Resp BP Pulse Ox 98.4 F 88 21 H 130/59 H 95 04/14/19 08:45 04/14/19 15:06 04/14/19 15:06 04/14/19 10:05 04/14/19 08:45 Oxygen Flow Rate (L/min) 4 Oxygen Delivery Method Nasal Cannula Weight: 242 lb 11.663 oz Body Mass Index (BMI) 45.1 Finger Stick Blood Glucose 204 Intake and Output for Last 24 Hours 04/12/19 04/13/19 04/14/19 23:59 23:59 23:59 Intake Total 980 / 980 1480 / 1480 Output Total 550 / 550 300 / 300 Balance 430 / 430 1180 / 1180 Microbiology Past 72 Hours 04/13/19 19:45 Mucosa - Nose Respiratory Panel (PCR) - Final 04/14/19 07:05 Fluid - Synovial (joint) Gram Stain - Final Laboratory Results 04/13/19 15:10: Uric Acid 14.6 H 04/13/19 15:10: Magnesium 1.4 L, Total Bilirubin 0.40, Direct Bilirubin 0.16, AST 28, ALT 35, Alkaline Phosphatase 112, Total Protein 6.8, Albumin 3.3, Globulin 3.5 04/13/19 22:12: POC Glucose 130 H 04/14/19 05:28: WBC 11.8 H, RBC 3.76 L, Hgb 11.0 L, Hct 34.2 L, MCV 91.0, MCH 29.3, MCHC 32.2, RDW Std Deviation 49.4 H, RDW Coeff of Camilla 14.9 H, Plt Count 189, MPV 10.3 04/14/19 05:28: Sodium 137, Potassium 3.0 L, Chloride 96 L, Carbon Dioxide 37.0 H, Anion Gap 4 L, BUN 14, Creatinine 0.73, Estim Creat Clear Calc 38.37, Est GFR (MDRD) Af Amer 101, Est GFR (MDRD) Non-Af 83, BUN/Creatinine Ratio 19.2, Glucose 181 H, Calcium 8.1 L 04/14/19 07:05: Fluid Crystals See PATH REV, Fluid Crystal Source SYNOVIAL, Synovial Source Cancelled, Synovial Color Cancelled, Synovial Appearance Cancelled, Synovial Volume Cancelled, Synovial Viscosity Cancelled, Synovial WBC Cancelled, Synovial RBC Cancelled, Synovial Tot Cell Ct Cancelled, Synov Polynuclear WBCs Cancelled, Synov Mononuclear WBCs Cancelled, Synovial Neutrophils Cancelled, Synovial Lymphocytes Cancelled, Synovial Monocytes Cancelled, Synovial Plasma Cells Cancelled, Synovial Other Cells Cancelled, Synovial Polynuclear % Cancelled, Synovial Mononuclear % Cancelled, Synovial Path Comment Cancelled 04/14/19 08:32: POC Glucose 170 H 04/14/19 12:03: POC Glucose 173 H Current Medications Acetaminophen (Tylenol) 650 mg PO Q6H PRN PRN PRN Reason: Pain Score 1-10/Temp > 100.7 F Last Admin: 04/14/19 08:28 Dose: 650 mg Documented by: Al Hydroxide/Mg Hydroxide (Mylanta Ii) 30 ml PO Q6H PRN PRN PRN Reason: Gastric Burning Albuterol Sulfate (Ventolin Aerosols) 2.5 mg INHALATION Q2H PRN PRN PRN Reason: SHORTNESS OF BREATH Albuterol/Ipratropium (Duoneb) 3 ml INHALATION Q4HWA.RT [facility] Last Admin: 04/14/19 15:00 Dose: 3 ml Documented by: Atorvastatin Calcium (Lipitor) 40 mg PO QHS [facility] Last Admin: 04/13/19 22:19 Dose: 40 mg Documented by: Buspirone HCl (Buspar) 15 mg PO BID [facility] Last Admin: 04/14/19 10:04 Dose: 15 mg Documented by: Colchicine (Colchicine) 0.6 mg PO BID [facility] Last Admin: 04/14/19 10:17 Dose: 0.6 mg Documented by: Dicyclomine HCl (Bentyl) 10 mg PO [facility] Last Admin: 04/14/19 12:10 Dose: 10 mg Documented by: Fluticasone Propionate (Flonase Nasal [place]) 2 spray NASAL QHS [facility] Last Admin: 04/13/19 22:20 Dose: 2 spray Documented by: Furosemide (Lasix) 80 mg PO BID [facility] Glucagon () 1 mg IM .X1 PRN PRN Reason: Hypoglycemia Heparin Sodium (Porcine) (Heparin Na) 5,000 unit SC Q8 [facility] Last Admin: 04/14/19 13:58 Dose: 5,000 unit Documented by: Dextrose (Dextrose 10%-Water) 250 mls @ 999 mls/hr IV .Q16M PRN; Protocol PRN Reason: HYPOGLYCEMIA Insulin Glargine (Lantus (Bkc)) 34 units SC BID [facility] Last Admin: 04/14/19 08:39 Dose: 34 u Documented by: Insulin Human Lispro (Humalog Kwikpen (Bkc)) 0 unit SC [facility]; Protocol Last Admin: 04/14/19 12:09 Dose: 1 units Documented by: Insulin Human Lispro (Humalog Kwikpen (Bkc)) 12 unit SC TIDCM [facility] Last Admin: 04/14/19 12:09 Dose: 12 units Documented by: Levothyroxine Sodium (Synthroid) 25 mcg PO DAILY@0600 [facility] Last Admin: 04/14/19 06:04 Dose: 25 mcg Documented by: Lisinopril (Zestril) 5 mg PO DAILY [facility] Last Admin: 04/14/19 10:04 Dose: 5 mg Documented by: Magnesium Oxide (Mag-Ox 400) 400 mg PO BID [facility] Metoclopramide HCl (Metoclopramide Hcl) 5 mg PO TIDAC [facility] Last Admin: 04/14/19 12:09 Dose: 5 mg Documented by: Metolazone (Zaroxolyn) 5 mg PO DAILY [facility] Last Admin: 04/14/19 10:04 Dose: 5 mg Documented by: Metoprolol Succinate (Toprol Xl (Beta Gisel)) 50 mg PO BID [facility] Last Admin: 04/14/19 10:05 Dose: 50 mg Documented by: Mirabegron (Myrbetriq) 25 mg PO DAILY [facility] Last Admin: 04/14/19 10:04 Dose: 25 mg Documented by: Montelukast Sodium (Singulair) 10 mg PO QHS [facility] Last Admin: 04/13/19 22:18 Dose: 10 mg Documented by: Morphine Sulfate () 1 - 2 mg IV Q3H PRN PRN PRN Reason: Pain Score 1-10/10 Last Admin: 04/14/19 06:02 Dose: 2 mg Documented by: Multivitamins (Multivitamin) 1 tablet PO DAILY@0800 [facility] Last Admin: 04/14/19 10:07 Dose: 1 tablet Documented by: Nitroglycerin (Nitrostat) 0.4 mg SUBLINGUAL Q5M PRN PRN Reason: CARDIAC/CHEST PAIN Ondansetron HCl (Zofran) 4 mg IV Q8H PRN PRN PRN Reason: NAUSEA/VOMITING Pantoprazole Sodium (Protonix) 20 mg PO DAILY [facility] Last Admin: 04/14/19 10:04 Dose: 20 mg Documented by: Potassium [facility] ([facility]) [facility] Last Admin: 04/14/19 10:04 Dose: 40 meq Documented by: Prednisone () 40 mg PO DAILY@0800 [facility] Last Admin: 04/14/19 10:15 Dose: 40 mg Documented by: Pregabalin (Lyrica) 50 mg PO TID [facility] Last Admin: 04/14/19 13:58 Dose: 50 mg Documented by: Psyllium Hydrophilic Mucilloid (Metamucil) 1 packet PO DAILY PRN PRN PRN Reason: Constipation Sertraline HCl (Zoloft) 200 mg PO QHS [facility] Last Admin: 04/13/19 22:19 Dose: 200 mg Documented by: Sodium Chloride () 10 - 40 ml IV UD PRN PRN Reason: SALINE FLUSH Last Admin: 04/14/19 08:18 Dose: 10 ml Documented by: Sucralfate (Carafate) 1 gm PO 1HR_ACHS [facility] Last Admin: 04/14/19 12:10 Dose: 1 gm Documented by: Tolterodine Tartrate (Detrol La) 4 mg PO DAILY [facility] Last Admin: 04/14/19 10:04 Dose: 4 mg Documented by: Trazodone HCl (Desyrel) 150 mg PO QHS [facility] Last Admin: 04/13/19 22:18 Dose: 150 mg Documented by: Code Visit Addendum: Dr. Reyes I personally examined the patient and reviewed the chart. I agree with the above. 73-year-old female with left foot pain and hypokalemia. Her hypokalemia has been repleted with potassium dosages twice daily. She did have her ankle drained by podiatry however the sample coagulated so we have no information however her serum uric acid level was 14 which if this is during an acute gout flare is going to be an accurate. However will continue with colchicine and prednisone and can have her follow-up with her PCP to start allopurinol once her gout has resolved. PT/OT was consulted to evaluate patient mobility and the possibility of placement. Inpatient E&M: 18329 Subs Hosp L2
--- NOTE | 2019-04-14 14:06 | CASEMGMT ---
SW completed a new Healthcare POA and a new Healthcare LW with patient. Copies were made and given to patient along with originals. SW also placed a copy of each in patient's chart. Tracy SMITH
--- NOTE | 2019-04-14 14:08 | CASEMGMT ---
SW completed a new Healthcare POA and a new Healthcare LW with patient. Copies made and given to patient along with originals. A copy of each was also placed in chart. Tracy SMITH
--- NOTE | 2019-04-14 15:16 | CASEMGMT ---
SW spoke with therapy and patient will need to go to a SNF. Therapy also said patient was a bit emotional. SW spoke with patient. Listened and provided emotional support while she talked about her divorce, her sick friend, and feeling lonely. SW asked patient if she would like list of facilities that are in network with her insurance. She said she does not like nursing homes and will only go to TCU. SW told her SW can put her name on the list, but SW does not know if there are any beds available. SONI called [facility] post acute referral phone and left a message with patient's name as well as left a message for Azul. Tracy [employer]
[2019-04-14 17:26] LABS: Bedside Glucose 317 mg/dL (70-110)
[2019-04-14] MEDS: Mag Hydrox/Al Hydrox/Simeth 30 ML UDC PO (19:33)
[2019-04-14] MEDS: Furosemide 40 MG Tablet 80 MG PO (19:40)
--- NOTE | 2019-04-14 20:52 | CPS ---
Pt. refusing BiPAP. Pt. understands importance of wearing PAP at night.
[2019-04-14] MEDS: traZODone 100 MG Tablet 150 MG PO (21:00)
[2019-04-14] MEDS: Sertraline 100 MG Tablet 200 MG PO (21:00)
[2019-04-14] MEDS: Montelukast 10 MG Tablet PO (21:01)
[2019-04-14] MEDS: Atorvastatin Calcium 40 MG Tablet PO (21:01)
[2019-04-14] MEDS: Fluticasone 0.05% 1 SPRAY NASAL.SRY 2 SPRAY NASAL (21:02)
[2019-04-14 21:41] LABS: Bedside Glucose 313 mg/dL (70-110)
[2019-04-15] VITALS (15 sets, daily range): BP systolic 130–174; BP diastolic 55–80; PULSE 78–101; RESP 12–24; TEMP 36.3–36.9; O2SAT 88–97
[2019-04-15] MEDS: Levothyroxine 25 MCG TABLET PO (05:30)
[2019-04-15] MEDS: Dicyclomine 10 MG Capsule PO ×4 (05:30→21:09)
[2019-04-15] MEDS: Pregabalin 50 MG Capsule PO ×3 (05:30→21:20)
[2019-04-15] MEDS: Sucralfate 1 GM Tablet PO ×4 (05:30→21:10)
[2019-04-15] MEDS: Heparin Injection (Vial) 5,000 UNIT/ML VIAL 5000 UNIT SC ×3 (05:30→21:11)
[2019-04-15] MEDS: 0.9% Saline Lock 10 ML Syringe IV ×2 (05:31→19:49)
[2019-04-15 05:32] LABS: Hematocrit 31.9 % (37-47); Hemoglobin 10.2 g/dL (12.0-15.0); Mean Corpuscular Hgb 28.9 pg (27.0-32.0); Mean Corpuscular Volume 90.4 fL (81-99); Mean Platelet Vol. 10.3 fl (6.2-12.0); Platelet Count 180 K/mm3 (150-450); RBC Distribution Width CV 14.8 % (11.6-14.6); RBC Distribution Width SD 48.8 fl (35.1-43.9); Red Blood Count 3.53 M/mm3 (4.2-5.4); White Blood Count 9.7 K/mm3 (4.4-11.0)
[2019-04-15 05:49] LABS: Anion Gap 2 (5-15); BUN 20 mg/dL (7-18); BUN/Creat Ratio 26.7 RATIO (10-20); Calcium,Total 8.9 mg/dL (8.5-10.1); Chloride 98 mmol/L (98-107); Creatinine, Serum 0.75 mg/dL (0.55-1.02); EST Glomerular Filtration Rate 81 mL/min (>60); Est Glom Filt Rate - Afr Amer 98 mL/min (>60); Estimated Creatinine Clearance 38.37 ml/min; Glucose 186 mg/dL (74-106); Magnesium 1.9 mg/dL (1.6-2.6); Potassium 3.3 mmol/L (3.5-5.1); Sodium Level 140 mmol/L (136-145)
[2019-04-15] MEDS: Metoclopramide 5 MG TABLET PO ×3 (06:42→17:22)
[2019-04-15] MEDS: Ipratropium/Albuterol Sulfate 3 ML AMPUL.NEB INHALATION ×4 (06:48→19:49)
--- NOTE | 2019-04-15 07:34 | PCM.PROGNOTE ---
Patient Problems: Active and Suspected Problems (Last Reviewed 11/07/18 @ 10:48 by Trevon Garsia MD) Gout of left foot (Acute) Pain in left ankle and joints of left foot (Acute) Right foot pain (Acute) Subjective: This 73-year-old female with diabetes and other comorbidities was seen bedside this morning for follow-up of left foot gout and also right foot pain. She relates her pain is decreased. Her swelling is also reduced. She has not tried walking yet. She obtained her right foot x-rays yesterday would like to go over the results this morning. She also asks about which foods to avoid to avoid future gout flare ups. - Physical Exam Vitals/I&O's: Vital Signs Temp Pulse Resp BP Pulse Ox 97.9 F 85 18 130/55 H 97 04/15/19 03:30 04/15/19 03:30 04/15/19 03:30 04/15/19 03:30 04/15/19 03:30 Oxygen Flow Rate (L/min) 3 Oxygen Delivery Method Nasal Cannula Weight: 110.5 kg Body Mass Index (BMI) 45.1 Finger Stick Blood Glucose 204 Intake and Output for Last 24 Hours 04/13/19 04/14/19 04/15/19 23:59 23:59 23:59 Intake Total 980 / 980 2510 / 2510 560 / 560 Output Total 550 / 550 2300 / 2300 575 / 575 Balance 430 / 430 210 / 210 -15 / -15 General: Alert, Oriented x3, Cooperative Extremities: No cyanosis, Capillary Refill Less than 3 Seconds, No Calf Tenderness, Edema, Peripheral Pulses Normal Skin: - - No ulcer noted, no odor or drainage, no bogginess or fluctuance. Erythema to lateral left foot it is reduced in intensity and location it and it has resolved to the leg skin wrinkles noted confirming reduction of edema. There are increased Musculoskeletal: No Tenderness to Palpation of Joints or Extremities, - - Improved active range of motion of the ankle noted compartments are soft to palpate left lower extremity. Active range of motion digits noted left and right. Discomfort to palpate the right first metatarsal phalangeal joint. Compartments are soft to the right lower extremity as well. There is reduced passive range of motion of the right first metatarsophalangeal joint Neurological: Sensory exam intact to light touch and pain Psych/Mental Status: Normal Affect, Appropriate Microbiology Past 72 Hours 04/13/19 19:45 Mucosa - Nose Respiratory Panel (PCR) - Final 04/14/19 07:05 Fluid - Synovial (joint) Gram Stain - Final Laboratory Results 04/14/19 07:05: Fluid Crystals See PATH REV, Fluid Crystal Source SYNOVIAL, Synovial Source Cancelled, Synovial Color Cancelled, Synovial Appearance Cancelled, Synovial Volume Cancelled, Synovial Viscosity Cancelled, Synovial WBC Cancelled, Synovial RBC Cancelled, Synovial Tot Cell Ct Cancelled, Synov Polynuclear WBCs Cancelled, Synov Mononuclear WBCs Cancelled, Synovial Neutrophils Cancelled, Synovial Lymphocytes Cancelled, Synovial Monocytes Cancelled, Synovial Plasma Cells Cancelled, Synovial Other Cells Cancelled, Synovial Polynuclear % Cancelled, Synovial Mononuclear % Cancelled, Synovial Path Comment Cancelled 04/14/19 08:32: POC Glucose 170 H 04/14/19 12:03: POC Glucose 173 H 04/14/19 17:18: POC Glucose 317 H 04/14/19 20:58: POC Glucose 313 H 04/15/19 05:20: WBC 9.7, RBC 3.53 L, Hgb 10.2 L, Hct 31.9 L, MCV 90.4, MCH 28.9, MCHC 32.0, RDW Std Deviation 48.8 H, RDW Coeff of Camilla 14.8 H, Plt Count 180, MPV 10.3 04/15/19 05:20: Sodium 140, Potassium 3.3 L, Chloride 98, Carbon Dioxide 40.0 H, Anion Gap 2 L, BUN 20 H, Creatinine 0.75, Estim Creat Clear Calc 38.37, Est GFR (MDRD) Af Amer 98, Est GFR (MDRD) Non-Af 81, BUN/Creatinine Ratio 26.7 H, Glucose 186 H, Calcium 8.9, Magnesium 1.9 Current Medications Acetaminophen (Tylenol) 650 mg PO Q6H PRN PRN PRN Reason: Pain Score 1-10/Temp > 100.7 F Last Admin: 04/14/19 08:28 Dose: 650 mg Documented by: Al Hydroxide/Mg Hydroxide (Mylanta Ii) 30 ml PO Q6H PRN PRN PRN Reason: Gastric Burning Last Admin: 04/14/19 19:33 Dose: 30 ml Documented by: Albuterol Sulfate (Ventolin Aerosols) 2.5 mg INHALATION Q2H PRN PRN PRN Reason: SHORTNESS OF BREATH Albuterol/Ipratropium (Duoneb) 3 ml INHALATION Q4HWA.RT [facility] Last Admin: 04/15/19 06:48 Dose: 3 ml Documented by: Atorvastatin Calcium (Lipitor) 40 mg PO QHS [facility] Last Admin: 04/14/19 21:01 Dose: 40 mg Documented by: Buspirone HCl (Buspar) 15 mg PO BID [facility] Last Admin: 04/14/19 21:01 Dose: 15 mg Documented by: Colchicine (Colchicine) 0.6 mg PO BID [facility] Last Admin: 04/14/19 21:01 Dose: 0.6 mg Documented by: Dicyclomine HCl (Bentyl) 10 mg PO [facility] Last Admin: 04/15/19 05:30 Dose: 10 mg Documented by: Fluticasone Propionate (Flonase Nasal Neversink) 2 spray NASAL QHS [facility] Last Admin: 04/14/19 21:02 Dose: 2 spray Documented by: Furosemide (Lasix) 80 mg PO BID [facility] Last Admin: 04/14/19 19:40 Dose: 80 mg Documented by: Glucagon () 1 mg IM .X1 PRN PRN Reason: Hypoglycemia Heparin Sodium (Porcine) (Heparin Na) 5,000 unit SC Q8 [facility] Last Admin: 04/15/19 05:30 Dose: 5,000 unit Documented by: Dextrose (Dextrose 10%-Water) 250 mls @ 999 mls/hr IV .Q16M PRN; Protocol PRN Reason: HYPOGLYCEMIA Insulin Glargine (Lantus (Bkc)) 34 units SC BID [facility] Last Admin: 04/14/19 21:03 Dose: 34 u Documented by: Insulin Human Lispro (Humalog Kwikpen (Bkc)) 0 unit SC ACHS [facility]; Protocol Last Admin: 04/14/19 21:02 Dose: 3 units Documented by: Insulin Human Lispro (Humalog Kwikpen (Bkc)) 12 unit SC TIDCM [facility] Last Admin: 04/14/19 17:19 Dose: 12 units Documented by: Levothyroxine Sodium (Synthroid) 25 mcg PO DAILY@0600 [facility] Last Admin: 04/15/19 05:30 Dose: 25 mcg Documented by: Lisinopril (Zestril) 5 mg PO DAILY [facility] Last Admin: 04/14/19 10:04 Dose: 5 mg Documented by: Magnesium Oxide (Mag-Ox 400) 400 mg PO BID [facility] Last Admin: 04/14/19 21:00 Dose: 400 mg Documented by: Metoclopramide HCl (Metoclopramide Hcl) 5 mg PO TIDAC [facility] Last Admin: 04/15/19 06:42 Dose: 5 mg Documented by: Metolazone (Zaroxolyn) 5 mg PO DAILY [facility] Last Admin: 04/14/19 10:04 Dose: 5 mg Documented by: Metoprolol Succinate (Toprol Xl (Beta Gisel)) 50 mg PO BID [facility] Last Admin: 04/14/19 21:00 Dose: 50 mg Documented by: Mirabegron (Myrbetriq) 25 mg PO DAILY [facility] Last Admin: 04/14/19 10:04 Dose: 25 mg Documented by: Montelukast Sodium (Singulair) 10 mg PO QHS [facility] Last Admin: 04/14/19 21:01 Dose: 10 mg Documented by: Morphine Sulfate () 1 - 2 mg IV Q3H PRN PRN PRN Reason: Pain Score 1-10/10 Last Admin: 04/14/19 21:15 Dose: 2 mg Documented by: Multivitamins (Multivitamin) 1 tablet PO DAILY@0800 [facility] Last Admin: 04/14/19 10:07 Dose: 1 tablet Documented by: Nitroglycerin (Nitrostat) 0.4 mg SUBLINGUAL Q5M PRN PRN Reason: CARDIAC/CHEST PAIN Ondansetron HCl (Zofran) 4 mg IV Q8H PRN PRN PRN Reason: NAUSEA/VOMITING Pantoprazole Sodium (Protonix) 20 mg PO DAILY [facility] Last Admin: 04/14/19 10:04 Dose: 20 mg Documented by: Potassium Chloride (K-Dur) 40 meq PO BIDCM [facility] Last Admin: 04/14/19 17:14 Dose: 40 meq Documented by: Prednisone () 40 mg PO DAILY@0800 [facility] Last Admin: 04/14/19 10:15 Dose: 40 mg Documented by: Pregabalin (Lyrica) 50 mg PO TID [facility] Last Admin: 04/15/19 05:30 Dose: 50 mg Documented by: Psyllium Hydrophilic Mucilloid (Metamucil) 1 packet PO DAILY PRN PRN PRN Reason: Constipation Sertraline HCl (Zoloft) 200 mg PO QHS [facility] Last Admin: 04/14/19 21:00 Dose: 200 mg Documented by: Sodium Chloride () 10 - 40 ml IV UD PRN PRN Reason: SALINE FLUSH Last Admin: 04/15/19 05:31 Dose: 20 ml Documented by: Sucralfate (Carafate) 1 gm PO 1HR_ACHS [facility] Last Admin: 04/15/19 05:30 Dose: 1 gm Documented by: Tolterodine Tartrate (Detrol La) 4 mg PO DAILY [facility] Last Admin: 04/14/19 10:04 Dose: 4 mg Documented by: Trazodone HCl (Desyrel) 150 mg PO QHS [facility] Last Admin: 04/14/19 21:00 Dose: 150 mg Documented by: Medical Necessity - Tobacco Use Smoking Status: Former smoker Tobacco Use: Cigarettes Assessment/Plan All Active Problems (Last Reviewed 11/07/18 @ 10:48 by Trevon Garsia MD) Gout of left foot (Acute) Pain in left ankle and joints of left foot (Acute) Right foot pain (Acute) Right-sided heart failure (Acute) Cervicalgia (Resolved) Chest pain (Resolved) Diarrhea (Resolved) Gastroenteritis (Resolved) H/O hemorrhoidectomy (Resolved) History of tonsillectomy (Resolved) Hyperglycemia (Resolved) Hypokalemia (Resolved) Recent urinary tract infection (Resolved) S/P wrist surgery (Resolved) Gout left subtalar joint and possible ankle Left lower extremity pain Edema Right foot hallux limitus Diabetes Reviewed and discussed her case. Her vitals remained stable. She does have some leukocytosis and her uric acid is over 14. She was started on colchicine and prednisone. She will be progressed to allopurinol once her acute gout flareup is completed. She is demonstrating improvement today with pain reduction and ability to move her lower extremity better. A subtalar joint aspiration was attempted yesterday. She did not tolerate this very well. A very small amount of fluid was obtained in which was not enough to complete a joint fluid analysis. There is no bacterial growth so far and the final results are pending. We discussed the potential to administer a cortisone injection. She understands this may elevate her glucose levels. For this reason and intolerance to prior injection she defers. We discussed some foods to avoid that may be higher in purine content. Educational handouts will be provided on this topic. A walking boot was ordered for her yesterday and she will try to progress into weightbearing as tolerated today with the help of physical therapy. I recommend she use an assistive device if needed. To continue Nish wrap and limb elevation. In regards to her right foot, her x-rays were reviewed without acute fracture dislocation. There is very mild if any arthritis to the first metatarsal phalangeal joint. I suspect her pain is secondary to hallux limitus or potentially prior gout attack at this location as well. There is no extra-articular erosions or tophi seen from a radiographic standpoint. She would benefit from wearing more supportive and protective shoes and I recommend she participates in the extra-depth diabetic shoe program. I do have several options for her that would also accommodate her fluctuating lower extremity edema. This will be pursued in the outpatient setting at the [facility]. I will continue to follow her while in house. Please not hesitate to call if you have any questions. Lou Gee DPM, F[facility] [phone]
[2019-04-15] MEDS: Albuterol 2.5 MG/3 ML VIAL.NEB. INHALATION (08:49)
[2019-04-15 08:56] LABS: Bedside Glucose 224 mg/dL (70-110)
[2019-04-15] MEDS: Insulin Lispro 100 UNIT/ML INSULN.PEN 12 UNIT SC ×3 (08:56→17:21)
[2019-04-15] MEDS: Insulin Lispro 100 UNIT/ML INSULN.PEN SC ×4 (08:56→21:16)
[2019-04-15] MEDS: Multivitamins,Therapeutic Tablet 1 TABLET PO (09:02)
[2019-04-15] MEDS: Tolterodine Tartrate 4 MG CAP.SA PO (09:03)
[2019-04-15] MEDS: predniSONE 20 MG Tablet 40 MG PO (09:03)
[2019-04-15] MEDS: busPIRone 15 MG TABLET PO ×2 (09:03→21:13)
[2019-04-15] MEDS: Furosemide 40 MG Tablet 80 MG PO ×2 (09:04→20:04)
[2019-04-15] MEDS: Magnesium Oxide 400 MG Tablet PO ×2 (09:17→21:11)
[2019-04-15] MEDS: Mirabegron 25 MG TAB.ER.24H PO (09:21)
[2019-04-15] MEDS: Pantoprazole Sodium 20 MG Tablet PO (09:22)
[2019-04-15] MEDS: Metoprolol(XL)Succ 50 MG Tablet PO ×2 (09:22→21:10)
[2019-04-15] MEDS: Lisinopril 5 MG Tablet PO (09:22)
[2019-04-15] MEDS: metOLazone 5 MG Tablet PO (09:22)
--- NOTE | 2019-04-15 11:22 | CASEMGMT ---
SONI spoke with [facility] and they will have a bed for patient. SONI let patient know this information. She also asked SONI to call her upper caser, Caitie Albarran. SONI called Caitie and left her a voice mail. Tracy SMITH
[2019-04-15] MEDS: Morphine 2 MG/ML Syringe IV ×2 (12:08→19:48)
[2019-04-15 12:11] LABS: Bedside Glucose 269 mg/dL (70-110)
[2019-04-15 13:12] LABS: Pathologist Review Reviewed
--- NOTE | 2019-04-15 13:50 | PN_ITS ---
<Kimmie Culp - Last Filed: 04/15/19 14:04> Patient Problems: Active and Suspected Problems (Last Reviewed 11/07/18 @ 10:48 by Trevon Garsia MD) Gout of left foot (Acute) Pain in left ankle and joints of left foot (Acute) Right foot pain (Acute) Subjective: Patient seen and examined. Reports she is unable to bear weight on left foot due to significant pain. Requesting home trelegy inhaler be resumed as she feels she is becoming more short of breath without it. - Physical Exam Vitals/I&O's: Vital Signs Temp Pulse Resp BP Pulse Ox 98.2 F 98 16 143/62 H 92 04/15/19 08:35 04/15/19 11:17 04/15/19 11:17 04/15/19 09:22 04/15/19 11:17 Oxygen Flow Rate (L/min) 3 Oxygen Delivery Method Nasal Cannula Weight: 243 lb 9.773 oz Body Mass Index (BMI) 45.1 Finger Stick Blood Glucose 204 Intake and Output for Last 24 Hours 04/13/19 04/14/19 04/15/19 23:59 23:59 23:59 Intake Total 980 / 980 2510 / 2510 1040 / 1040 Output Total 550 / 550 2300 / 2300 625 / 625 Balance 430 / 430 210 / 210 415 / 415 General: Alert, Oriented x3, Cooperative HEENT: Atraumatic, PERRLA, EOMI, Normocephalic Neck: Supple, No JVD, Negative Carotid Bruits Lungs: Clear to auscultation, Diminished Cardiovascular: Regular rate, Regular Rhythm, Normal S1, Normal S2, No murmurs Abdomen: Bowel Sounds Present, Soft, Non Tender, Non-Distended Extremities: No clubbing, No cyanosis, Edema - Edema - Left lower extremity edema, Nish wrap in place Skin: No rashes, No breakdown Musculoskeletal: No Tenderness to Palpation of Joints or Extremities, Tenderness - left foot Neurological: Cranial nerves II-XII grossly intact Psych/Mental Status: Normal Affect, Appropriate Microbiology Past 72 Hours 04/14/19 07:05 Fluid - Synovial (joint) Gram Stain - Final 04/14/19 07:05 Fluid - Synovial (joint) Body Fluid Culture - Preliminary No growth-Final to follow 04/13/19 19:45 Mucosa - Nose Respiratory Panel (PCR) - Final Laboratory Results 04/14/19 07:05: Fl Crystal Path Review Reviewed 04/14/19 17:18: POC Glucose 317 H 04/14/19 20:58: POC Glucose 313 H 04/15/19 05:20: WBC 9.7, RBC 3.53 L, Hgb 10.2 L, Hct 31.9 L, MCV 90.4, MCH 28.9, MCHC 32.0, RDW Std Deviation 48.8 H, RDW Coeff of Camilla 14.8 H, Plt Count 180, MPV 10.3 04/15/19 05:20: Sodium 140, Potassium 3.3 L, Chloride 98, Carbon Dioxide 40.0 H, Anion Gap 2 L, BUN 20 H, Creatinine 0.75, Estim Creat Clear Calc 38.37, Est GFR (MDRD) Af Amer 98, Est GFR (MDRD) Non-Af 81, BUN/Creatinine Ratio 26.7 H, Glucose 186 H, Calcium 8.9, Magnesium 1.9 04/15/19 08:33: POC Glucose 224 H 04/15/19 11:51: POC Glucose 269 H Current Medications Acetaminophen (Tylenol) 650 mg PO Q6H PRN PRN PRN Reason: Pain Score 1-10/Temp > 100.7 F Last Admin: 04/14/19 08:28 Dose: 650 mg Documented by: Al Hydroxide/Mg Hydroxide (Mylanta Ii) 30 ml PO Q6H PRN PRN PRN Reason: Gastric Burning Last Admin: 04/14/19 19:33 Dose: 30 ml Documented by: Albuterol Sulfate (Ventolin Aerosols) 2.5 mg INHALATION Q2H PRN PRN PRN Reason: SHORTNESS OF BREATH Last Admin: 04/15/19 08:49 Dose: 2.5 mg Documented by: Albuterol/Ipratropium (Duoneb) 3 ml INHALATION Q4HWA.RT [facility] Last Admin: 04/15/19 11:17 Dose: 3 ml Documented by: Atorvastatin Calcium (Lipitor) 40 mg PO QHS [facility] Last Admin: 04/14/19 21:01 Dose: 40 mg Documented by: Buspirone HCl (Buspar) 15 mg PO BID [facility] Last Admin: 04/15/19 09:03 Dose: 15 mg Documented by: Colchicine (Colchicine) 0.6 mg PO BID [facility] Last Admin: 04/15/19 09:03 Dose: 0.6 mg Documented by: Dicyclomine HCl (Bentyl) 10 mg PO [facility] Last Admin: 04/15/19 12:06 Dose: 10 mg Documented by: Fluticasone Propionate (Flonase Nasal [place]) 2 spray NASAL QHS [facility] Last Admin: 04/14/19 21:02 Dose: 2 spray Documented by: Furosemide (Lasix) 80 mg PO BID [facility] Last Admin: 04/15/19 09:04 Dose: 80 mg Documented by: Glucagon () 1 mg IM .X1 PRN PRN Reason: Hypoglycemia Heparin Sodium (Porcine) (Heparin Na) 5,000 unit SC Q8 [facility] Last Admin: 04/15/19 05:30 Dose: 5,000 unit Documented by: Dextrose (Dextrose 10%-Water) 250 mls @ 999 mls/hr IV .Q16M PRN; Protocol PRN Reason: HYPOGLYCEMIA Insulin Glargine (Lantus (Bkc)) 34 units SC BID [facility] Last Admin: 04/15/19 09:25 Dose: 34 u Documented by: Insulin Human Lispro (Humalog Kwikpen (Bkc)) 0 unit SC [facility]; Protocol Last Admin: 04/15/19 12:34 Dose: 2 units Documented by: Insulin Human Lispro (Humalog Kwikpen (Bk)) 12 unit SC TIDCM [facility] Last Admin: 04/15/19 12:35 Dose: 12 units Documented by: Levothyroxine Sodium (Synthroid) 25 mcg PO DAILY@0600 [facility] Last Admin: 04/15/19 05:30 Dose: 25 mcg Documented by: Lisinopril (Zestril) 5 mg PO DAILY [facility] Last Admin: 04/15/19 09:22 Dose: 5 mg Documented by: Magnesium Oxide (Mag-Ox 400) 400 mg PO BID [facility] Last Admin: 04/15/19 09:17 Dose: 400 mg Documented by: Metoclopramide HCl (Metoclopramide Hcl) 5 mg PO TIDAC [facility] Last Admin: 04/15/19 12:06 Dose: 5 mg Documented by: Metolazone (Zaroxolyn) 5 mg PO DAILY [facility] Last Admin: 04/15/19 09:22 Dose: 5 mg Documented by: Metoprolol Succinate (Toprol Xl (Beta Gisel)) 50 mg PO BID [facility] Last Admin: 04/15/19 09:22 Dose: 50 mg Documented by: Mirabegron (Myrbetriq) 25 mg PO DAILY [facility] Last Admin: 04/15/19 09:21 Dose: 25 mg Documented by: Montelukast Sodium (Singulair) 10 mg PO QHS [facility] Last Admin: 04/14/19 21:01 Dose: 10 mg Documented by: Morphine Sulfate () 1 - 2 mg IV Q3H PRN PRN PRN Reason: Pain Score 1-10/10 Last Admin: 04/15/19 12:08 Dose: 2 mg Documented by: Multivitamins (Multivitamin) 1 tablet PO DAILY@0800 [facility] Last Admin: 04/15/19 09:02 Dose: 1 tablet Documented by: Nitroglycerin (Nitrostat) 0.4 mg SUBLINGUAL Q5M PRN PRN Reason: CARDIAC/CHEST PAIN Ondansetron HCl (Zofran) 4 mg IV Q8H PRN PRN PRN Reason: NAUSEA/VOMITING Pantoprazole Sodium (Protonix) 20 mg PO DAILY [facility] Last Admin: 04/15/19 09:22 Dose: 20 mg Documented by: Potassium Chloride (K-Dur) 40 meq PO BIDCM [facility] Last Admin: 04/15/19 09:02 Dose: 40 meq Documented by: Prednisone () 40 mg PO DAILY@0800 [facility] Last Admin: 04/15/19 09:03 Dose: 40 mg Documented by: Pregabalin (Lyrica) 50 mg PO TID [facility] Last Admin: 04/15/19 05:30 Dose: 50 mg Documented by: Psyllium Hydrophilic Mucilloid (Metamucil) 1 packet PO DAILY PRN PRN PRN Reason: Constipation Sertraline HCl (Zoloft) 200 mg PO QHS [facility] Last Admin: 04/14/19 21:00 Dose: 200 mg Documented by: Sodium Chloride () 10 - 40 ml IV UD PRN PRN Reason: SALINE FLUSH Last Admin: 04/15/19 05:31 Dose: 20 ml Documented by: Sucralfate (Carafate) 1 gm PO 1HR_ACHS [facility] Last Admin: 04/15/19 12:06 Dose: 1 gm Documented by: Tolterodine Tartrate (Detrol La) 4 mg PO DAILY [facility] Last Admin: 04/15/19 09:03 Dose: 4 mg Documented by: Trazodone HCl (Desyrel) 150 mg PO QHS [facility] Last Admin: 04/14/19 21:00 Dose: 150 mg Documented by: Medical Necessity - Tobacco Use Smoking Status: Former smoker Tobacco Use: Cigarettes Assessment/Plan All Active Problems (Last Reviewed 11/07/18 @ 10:48 by Trevon Garsia MD) Gout of left foot (Acute) Pain in left ankle and joints of left foot (Acute) Right foot pain (Acute) Right-sided heart failure (Acute) Cervicalgia (Resolved) Chest pain (Resolved) Diarrhea (Resolved) Gastroenteritis (Resolved) H/O hemorrhoidectomy (Resolved) History of tonsillectomy (Resolved) Hyperglycemia (Resolved) Hypokalemia (Resolved) Recent urinary tract infection (Resolved) S/P wrist surgery (Resolved) 1. Left subtalar joint and possible ankle acute gout-DVT ruled out. Uric acid greater than 14. Podiatry consulted. Patient underwent joint aspiration left subtalar joint, cytology pending. Continue prednisone. Recommend initiating allopurinol following resolution of acute gout flare. Nish wrap left lower extremity. PRN pain regimen. Elevate and ice left lower extremity. Left lower extremity immobilization. PT/OT. 2. Hypokalemia/hypomagnesia secondary to chronic diarrhea as a result of IBS as well as diuretic regimen-replaced per protocol, trend BMP, magnesium. 3. Chronic diastolic CHF-echocardiogram September 2018 with EF 65%, stage I diastolic dysfunction, moderate aortic valve stenosis. Continue home Lasix regimen 4. Chronic hypoxic respiratory failure secondary to chronic COPD- On trilogy at home. No acute COPD exacerbation. Continue supplement oxygen to maintain O2 sat above 90%. As needed albuterol aerosol. 5. Hypothyroidism-continue home Synthroid regimen. 6. Depression/anxiety-continue home sertraline, trazodone, lorazepam, BuSpar regimen. 7. Type 2 diabetes [id number] ACHS and sliding scale insulin. Hold home oral regimen. 8. SCOTTY-BiPAP nightly. 9. Overactive bladder-continue home oxybutynin regimen. 10. Hypertension-stable, continue home metoprolol, lisinopril regimen. 11. Hyperlipidemia-continue statin. 12. GERD-continue home Protonix, Carafate regimen. 13. Obesity-encouraged diet and lifestyle modifications. Nutrition consult. 14. History of non-Hodgkin's lymphoma-in remission. DVT prophylaxis-Heparin subcu Discharge planning: Plan for discharge to TCU 04/17/2019. This patient was seen by HEBERT Huddleston under the supervision of Dr. Reyes. <Cristian Reyes F - Last Filed: 04/15/19 16:09> - Physical Exam Vitals/I&O's: Vital Signs Temp Pulse Resp BP Pulse Ox 98.5 F 98 20 H 136/80 H 88 04/15/19 15:00 04/15/19 15:00 04/15/19 15:00 04/15/19 15:00 04/15/19 15:00 Oxygen Flow Rate (L/min) 3.5 Oxygen Delivery Method Nasal Cannula Weight: 243 lb 9.773 oz Body Mass Index (BMI) 45.1 Finger Stick Blood Glucose 204 Intake and Output for Last 24 Hours 04/13/19 04/14/19 04/15/19 23:59 23:59 23:59 Intake Total 980 / 980 2510 / 2510 1040 / 1040 Output Total 550 / 550 2300 / 2300 625 / 625 Balance 430 / 430 210 / 210 415 / 415 Microbiology Past 72 Hours 04/14/19 07:05 Fluid - Synovial (joint) Gram Stain - Final 04/14/19 07:05 Fluid - Synovial (joint) Body Fluid Culture - Preliminary No growth-Final to follow 04/13/19 19:45 Mucosa - Nose Respiratory Panel (PCR) - Final Laboratory Results 04/14/19 07:05: Fl Crystal Path Review Reviewed 04/14/19 17:18: POC Glucose 317 H 04/14/19 20:58: POC Glucose 313 H 04/15/19 05:20: WBC 9.7, RBC 3.53 L, Hgb 10.2 L, Hct 31.9 L, MCV 90.4, MCH 28.9, MCHC 32.0, RDW Std Deviation 48.8 H, RDW Coeff of Camilla 14.8 H, Plt Count 180, MPV 10.3 04/15/19 05:20: Sodium 140, Potassium 3.3 L, Chloride 98, Carbon Dioxide 40.0 H, Anion Gap 2 L, BUN 20 H, Creatinine 0.75, Estim Creat Clear Calc 38.37, Est GFR (MDRD) Af Amer 98, Est GFR (MDRD) Non-Af 81, BUN/Creatinine Ratio 26.7 H, Glucose 186 H, Calcium 8.9, Magnesium 1.9 04/15/19 08:33: POC Glucose 224 H 04/15/19 11:51: POC Glucose 269 H Current Medications Acetaminophen (Tylenol) 650 mg PO Q6H PRN PRN PRN Reason: Pain Score 1-10/Temp > 100.7 F Last Admin: 04/14/19 08:28 Dose: 650 mg Documented by: Al Hydroxide/Mg Hydroxide (Mylanta Ii) 30 ml PO Q6H PRN PRN PRN Reason: Gastric Burning Last Admin: 04/14/19 19:33 Dose: 30 ml Documented by: Albuterol Sulfate (Ventolin Aerosols) 2.5 mg INHALATION Q2H PRN PRN PRN Reason: SHORTNESS OF BREATH Last Admin: 04/15/19 08:49 Dose: 2.5 mg Documented by: Albuterol/Ipratropium (Duoneb) 3 ml INHALATION Q4HWA.RT [facility] Last Admin: 04/15/19 14:39 Dose: 3 ml Documented by: Atorvastatin Calcium (Lipitor) 40 mg PO QHS [facility] Last Admin: 04/14/19 21:01 Dose: 40 mg Documented by: Buspirone HCl (Buspar) 15 mg PO BID [facility] Last Admin: 04/15/19 09:03 Dose: 15 mg Documented by: Dicyclomine HCl (Bentyl) 10 mg PO ACHS [facility] Last Admin: 04/15/19 15:23 Dose: 10 mg Documented by: Fluticasone Propionate (Flonase Nasal [place]) 2 spray NASAL QHS [facility] Last Admin: 04/14/19 21:02 Dose: 2 spray Documented by: Furosemide (Lasix) 80 mg PO BID [facility] Last Admin: 04/15/19 09:04 Dose: 80 mg Documented by: Glucagon () 1 mg IM .X1 PRN PRN Reason: Hypoglycemia Heparin Sodium (Porcine) (Heparin Na) 5,000 unit SC Q8 [facility] Last Admin: 04/15/19 15:23 Dose: 5,000 unit Documented by: Dextrose (Dextrose 10%-Water) 250 mls @ 999 mls/hr IV .Q16M PRN; Protocol PRN Reason: HYPOGLYCEMIA Insulin Glargine (Lantus ([facility])) 34 units SC BID [facility] Last Admin: 04/15/19 09:25 Dose: 34 u Documented by: Insulin Human Lispro (Humalog Kwikpen ([facility])) 0 unit SC ACHS [facility]; Protocol Last Admin: 04/15/19 12:34 Dose: 2 units Documented by: Insulin Human Lispro (Humalog Kwikpen ([facility])) 12 unit SC TIDCM [facility] Last Admin: 04/15/19 12:35 Dose: 12 units Documented by: Levothyroxine Sodium (Synthroid) 25 mcg PO DAILY@0600 [facility] Last Admin: 04/15/19 05:30 Dose: 25 mcg Documented by: Lisinopril (Zestril) 5 mg PO DAILY [facility] Last Admin: 04/15/19 09:22 Dose: 5 mg Documented by: Magnesium Oxide (Mag-Ox 400) 400 mg PO BID [facility] Last Admin: 04/15/19 09:17 Dose: 400 mg Documented by: Metoclopramide HCl (Metoclopramide Hcl) 5 mg PO TIDAC [facility] Last Admin: 04/15/19 12:06 Dose: 5 mg Documented by: Metolazone (Zaroxolyn) 5 mg PO DAILY [facility] Last Admin: 04/15/19 09:22 Dose: 5 mg Documented by: Metoprolol Succinate (Toprol Xl (Beta Gisel)) 50 mg PO BID [facility] Last Admin: 04/15/19 09:22 Dose: 50 mg Documented by: Mirabegron (Myrbetriq) 25 mg PO DAILY [facility] Last Admin: 04/15/19 09:21 Dose: 25 mg Documented by: Montelukast Sodium (Singulair) 10 mg PO QHS [facility] Last Admin: 04/14/19 21:01 Dose: 10 mg Documented by: Morphine Sulfate () 1 - 2 mg IV Q3H PRN PRN PRN Reason: Pain Score 1-10/10 Last Admin: 04/15/19 12:08 Dose: 2 mg Documented by: Multivitamins (Multivitamin) 1 tablet PO DAILY@0800 [facility] Last Admin: 04/15/19 09:02 Dose: 1 tablet Documented by: Nitroglycerin (Nitrostat) 0.4 mg SUBLINGUAL Q5M PRN PRN Reason: CARDIAC/CHEST PAIN Ondansetron HCl (Zofran) 4 mg IV Q8H PRN PRN PRN Reason: NAUSEA/VOMITING Pantoprazole Sodium (Protonix) 20 mg PO DAILY [facility] Last Admin: 04/15/19 09:22 Dose: 20 mg Documented by: Potassium Chloride (K-Dur) 40 meq PO BIDCM [facility] Last Admin: 04/15/19 09:02 Dose: 40 meq Documented by: Prednisone () 40 mg PO DAILY@0800 [facility] Last Admin: 04/15/19 09:03 Dose: 40 mg Documented by: Pregabalin (Lyrica) 50 mg PO TID [facility] Last Admin: 04/15/19 15:23 Dose: 50 mg Documented by: Psyllium Hydrophilic Mucilloid (Metamucil) 1 packet PO DAILY PRN PRN PRN Reason: Constipation Sertraline HCl (Zoloft) 200 mg PO QHS [facility] Last Admin: 04/14/19 21:00 Dose: 200 mg Documented by: Sodium Chloride () 10 - 40 ml IV UD PRN PRN Reason: SALINE FLUSH Last Admin: 04/15/19 05:31 Dose: 20 ml Documented by: Sucralfate (Carafate) 1 gm PO 1HR_ACHS [facility] Last Admin: 04/15/19 15:24 Dose: 1 gm Documented by: Tolterodine Tartrate (Detrol La) 4 mg PO DAILY [facility] Last Admin: 04/15/19 09:03 Dose: 4 mg Documented by: Trazodone HCl (Desyrel) 150 mg PO QHS [facility] Last Admin: 04/14/19 21:00 Dose: 150 mg Documented by: Code Visit Addendum: Dr. Reyes I personally examined the patient and reviewed the chart. I agree with the above. 73-year-old female with left foot pain and hypokalemia, her foot pain we believe is secondary to gout. She did have it drained however the sample coagulated. Serum uric acid was 14 which can be falsely elevated during a gout flare. Her allopurinol was discontinued as this can sometimes worsen a gout flare and she was started on prednisone. Since she is on Lasix as well as lisinopril and colchicine is cleared by the kidneys, this was discontinued as well and she will just be treated with prednisone for now. Once her gout flare resolves she can be started on allopurinol. Plan will be for transfer to transitional care unit on Saturday. Inpatient E&M: 24891 Subs Hosp L2
--- NOTE | 2019-04-15 15:10 | NURSING ---
O2 INCREASED TO 4L NC - WILL MONITOR O2 SAT
--- NOTE | 2019-04-15 15:18 | CASEMGMT ---
SONI received a call from Caitie Albarran at [facility] and she said she spoke with patient. SW let her know the plan is for patient to go to TCU at d/c due to her inability to put weight on her foot. She asked that SW send d/c instructions to her. SW told her SW will do this. Tracy SMITH
[2019-04-15 16:51] LABS: Bedside Glucose 354 mg/dL (70-110)
[2019-04-15 20:46] LABS: Bedside Glucose 325 mg/dL (70-110)
[2019-04-15] MEDS: traZODone 100 MG Tablet 150 MG PO (21:10)
[2019-04-15] MEDS: Sertraline 100 MG Tablet 200 MG PO (21:10)
[2019-04-15] MEDS: Atorvastatin Calcium 40 MG Tablet PO (21:10)
[2019-04-15] MEDS: Montelukast 10 MG Tablet PO (21:10)
[2019-04-15] MEDS: Fluticasone 0.05% 1 SPRAY NASAL.SRY 2 SPRAY NASAL (21:11)
[2019-04-16] VITALS (18 sets, daily range): BP systolic 148–174; BP diastolic 68–80; PULSE 73–99; RESP 12–24; TEMP 36.6–36.7; O2SAT 93–96
--- NOTE | 2019-04-16 05:03 | CPS ---
Placed pt on a resmed bipap machine from sleep lab. 25/01 3.5L bleed in
[2019-04-16 05:30] LABS: Anion Gap 5 (5-15); BUN 27 mg/dL (7-18); BUN/Creat Ratio 32.4 RATIO (10-20); Calcium,Total 9.6 mg/dL (8.5-10.1); Chloride 93 mmol/L (98-107); Creatinine, Serum 0.83 mg/dL (0.55-1.02); EST Glomerular Filtration Rate 71 mL/min (>60); Est Glom Filt Rate - Afr Amer 86 mL/min (>60); Estimated Creatinine Clearance 46.23 ml/min; Glucose 170 mg/dL (74-106); Potassium 3.2 mmol/L (3.5-5.1); Sodium Level 138 mmol/L (136-145)
[2019-04-16] MEDS: Sucralfate 1 GM Tablet PO ×4 (06:00→23:18)
[2019-04-16] MEDS: Metoclopramide 5 MG TABLET PO ×3 (06:00→16:48)
[2019-04-16] MEDS: Levothyroxine 25 MCG TABLET PO (06:00)
[2019-04-16] MEDS: Heparin Injection (Vial) 5,000 UNIT/ML VIAL 5000 UNIT SC ×3 (06:00→23:27)
[2019-04-16] MEDS: Pregabalin 50 MG Capsule PO ×3 (06:00→23:20)
[2019-04-16] MEDS: Dicyclomine 10 MG Capsule PO ×4 (06:00→23:17)
--- NOTE | 2019-04-16 07:04 | PN_ITS ---
Patient Problems: Active and Suspected Problems (Last Reviewed 11/07/18 @ 10:48 by Trevon Garsia MD) Gout of left foot (Acute) Pain in left ankle and joints of left foot (Acute) Right foot pain (Acute) Subjective: This 73-year-old female was seen bedside for follow-up of left foot gout. She has been improving and her pain is rated as a 2 out of 10 today. She relates she will be transferred to rehab tomorrow. She denies new complaints today. - Physical Exam Vitals/I&O's: Vital Signs Temp Pulse Resp BP Pulse Ox 98 F 76 18 151/71 H 95 04/16/19 04:00 04/16/19 06:49 04/16/19 04:00 04/16/19 04:00 04/16/19 04:00 Oxygen Flow Rate (L/min) 3.5 Oxygen Delivery Method Bi-pap Weight: 109.6 kg Body Mass Index (BMI) 45.1 Finger Stick Blood Glucose 204 Intake and Output for Last 24 Hours 04/14/19 04/15/19 04/16/19 23:59 23:59 23:59 Intake Total 2510 / 2510 1680 / 1680 560 / 560 Output Total 2300 / 2300 1875 / 1875 550 / 550 Balance 210 / 210 -195 / -195 General: Alert, Oriented x3, Cooperative Extremities: No cyanosis, Capillary Refill Less than 3 Seconds, No Calf Tenderness - Negative Manuel and Maya sign left, Diminished Peripheral Pulses, Edema Skin: - - There is no skin discontinuity, erythema, streaking, or odor noted today. Her erythema and calor have significantly decreased since her hospital admission. She has increased skin wrinkles which corresponds with her reduced leg edema Musculoskeletal: - - Decreased pain on palpation to the subtalar joint. Resolved pain on palpation to the distal lateral ankle and to the foot. She does not have any pain to the anterior aspect of the ankle joint nor did she previously. Decreased pain with inversion and eversion passive manipulation of the hindfoot Neurological: Sensory exam intact to light touch and pain Psych/Mental Status: Normal Affect, Appropriate Microbiology Past 72 Hours 04/14/19 07:05 Fluid - Synovial (joint) Gram Stain - Final 04/14/19 07:05 Fluid - Synovial (joint) Body Fluid Culture - Preliminary No growth-Final to follow 04/13/19 19:45 Mucosa - Nose Respiratory Panel (PCR) - Final Laboratory Results 04/14/19 07:05: Fl Crystal Path Review Reviewed 04/15/19 08:33: POC Glucose 224 H 04/15/19 11:51: POC Glucose 269 H 04/15/19 16:41: POC Glucose 354 H 04/15/19 20:42: POC Glucose 325 H 04/16/19 05:05: Sodium 138, Potassium 3.2 L, Chloride 93 L, Carbon Dioxide 40.0 H, Anion Gap 5, BUN 27 H, Creatinine 0.83, Estim Creat Clear Calc 46.23, Est GFR (MDRD) Af Amer 86, Est GFR (MDRD) Non-Af 71, BUN/Creatinine Ratio 32.4 H, Glucose 170 H, Calcium 9.6 Current Medications Acetaminophen (Tylenol) 650 mg PO Q6H PRN PRN PRN Reason: Pain Score 1-10/Temp > 100.7 F Last Admin: 04/14/19 08:28 Dose: 650 mg Documented by: Al Hydroxide/Mg Hydroxide (Mylanta Ii) 30 ml PO Q6H PRN PRN PRN Reason: Gastric Burning Last Admin: 04/14/19 19:33 Dose: 30 ml Documented by: Albuterol Sulfate (Ventolin Aerosols) 2.5 mg INHALATION Q2H PRN PRN PRN Reason: SHORTNESS OF BREATH Last Admin: 04/15/19 08:49 Dose: 2.5 mg Documented by: Albuterol/Ipratropium (Duoneb) 3 ml INHALATION Q4HWA.RT [facility] Last Admin: 04/15/19 19:49 Dose: 3 ml Documented by: Atorvastatin Calcium (Lipitor) 40 mg PO QHS [facility] Last Admin: 04/15/19 21:10 Dose: 40 mg Documented by: Buspirone HCl (Buspar) 15 mg PO BID [facility] Last Admin: 04/15/19 21:13 Dose: 15 mg Documented by: Dicyclomine HCl (Bentyl) 10 mg PO [facility] Last Admin: 04/16/19 06:00 Dose: 10 mg Documented by: Fluticasone Propionate (Flonase Nasal [place]) 2 spray NASAL QHS [facility] Last Admin: 04/15/19 21:11 Dose: 2 spray Documented by: Furosemide (Lasix) 80 mg PO BID [facility] Last Admin: 04/15/19 20:04 Dose: 80 mg Documented by: Glucagon () 1 mg IM .X1 PRN PRN Reason: Hypoglycemia Heparin Sodium (Porcine) (Heparin Na) 5,000 unit SC Q8 [facility] Last Admin: 04/16/19 06:00 Dose: 5,000 unit Documented by: Dextrose (Dextrose 10%-Water) 250 mls @ 999 mls/hr IV .Q16M PRN; Protocol PRN Reason: HYPOGLYCEMIA Insulin Glargine (Lantus (Bk)) 34 units SC BID [facility] Last Admin: 04/15/19 21:15 Dose: 34 u Documented by: Insulin Human Lispro (Humalog Kwikpen ([facility])) 0 unit SC ACHS [facility]; Protocol Last Admin: 04/15/19 21:16 Dose: 3 units Documented by: Insulin Human Lispro (Humalog Kwikpen ([facility])) 12 unit SC TIDCM [facility] Last Admin: 04/15/19 17:21 Dose: 12 units Documented by: Levothyroxine Sodium (Synthroid) 25 mcg PO DAILY@0600 [facility] Last Admin: 04/16/19 06:00 Dose: 25 mcg Documented by: Lisinopril (Zestril) 5 mg PO DAILY [facility] Last Admin: 04/15/19 09:22 Dose: 5 mg Documented by: Magnesium Oxide (Mag-Ox 400) 400 mg PO BID [facility] Last Admin: 04/15/19 21:11 Dose: 400 mg Documented by: Metoclopramide HCl (Metoclopramide Hcl) 5 mg PO TIDAC [facility] Last Admin: 04/16/19 06:00 Dose: 5 mg Documented by: Metolazone (Zaroxolyn) 5 mg PO DAILY [facility] Last Admin: 04/15/19 09:22 Dose: 5 mg Documented by: Metoprolol Succinate (Toprol Xl (Beta Gisel)) 50 mg PO BID [facility] Last Admin: 04/15/19 21:10 Dose: 50 mg Documented by: Mirabegron (Myrbetriq) 25 mg PO DAILY [facility] Last Admin: 04/15/19 09:21 Dose: 25 mg Documented by: Montelukast Sodium (Singulair) 10 mg PO QHS [facility] Last Admin: 04/15/19 21:10 Dose: 10 mg Documented by: Morphine Sulfate () 1 - 2 mg IV Q3H PRN PRN PRN Reason: Pain Score 1-10/10 Last Admin: 04/15/19 19:48 Dose: 2 mg Documented by: Multivitamins (Multivitamin) 1 tablet PO DAILY@0800 [facility] Last Admin: 04/15/19 09:02 Dose: 1 tablet Documented by: Nitroglycerin (Nitrostat) 0.4 mg SUBLINGUAL Q5M PRN PRN Reason: CARDIAC/CHEST PAIN Ondansetron HCl (Zofran) 4 mg IV Q8H PRN PRN PRN Reason: NAUSEA/VOMITING Pantoprazole Sodium (Protonix) 20 mg PO DAILY [facility] Last Admin: 04/15/19 09:22 Dose: 20 mg Documented by: Potassium Chloride (K-Dur) 40 meq PO BIDCM [facility] Last Admin: 04/15/19 17:22 Dose: 40 meq Documented by: Prednisone () 40 mg PO DAILY@0800 [facility] Last Admin: 04/15/19 09:03 Dose: 40 mg Documented by: Pregabalin (Lyrica) 50 mg PO TID [facility] Last Admin: 04/16/19 06:00 Dose: 50 mg Documented by: Psyllium Hydrophilic Mucilloid (Metamucil) 1 packet PO DAILY PRN PRN PRN Reason: Constipation Sertraline HCl (Zoloft) 200 mg PO QHS [facility] Last Admin: 04/15/19 21:10 Dose: 200 mg Documented by: Sodium Chloride () 10 - 40 ml IV UD PRN PRN Reason: SALINE FLUSH Last Admin: 04/15/19 19:49 Dose: 10 ml Documented by: Sucralfate (Carafate) 1 gm PO 1HR_ACHS [facility] Last Admin: 04/16/19 06:00 Dose: 1 gm Documented by: Tolterodine Tartrate (Detrol La) 4 mg PO DAILY [facility] Last Admin: 04/15/19 09:03 Dose: 4 mg Documented by: Trazodone HCl (Desyrel) 150 mg PO QHS [facility] Last Admin: 04/15/19 21:10 Dose: 150 mg Documented by: Medical Necessity - Tobacco Use Smoking Status: Former smoker Tobacco Use: Cigarettes Assessment/Plan All Active Problems (Last Reviewed 11/07/18 @ 10:48 by Trevon Garsia MD) Gout of left foot (Acute) Pain in left ankle and joints of left foot (Acute) Right foot pain (Acute) Right-sided heart failure (Acute) Cervicalgia (Resolved) Chest pain (Resolved) Diarrhea (Resolved) Gastroenteritis (Resolved) H/O hemorrhoidectomy (Resolved) History of tonsillectomy (Resolved) Hyperglycemia (Resolved) Hypokalemia (Resolved) Recent urinary tract infection (Resolved) S/P wrist surgery (Resolved) Gout left subtalar joint --improving Left lower extremity pain Edema -improving Diabetes Gait impairment Reviewed and discussed her case. Her vitals remained stable. She continues on temporary prednisone for treatment of her acute gout. She will be progressed to allopurinol once her acute gout flare up is completed. She is demonstrating improvement again today with pain reduction and ability to move her lower extremity better. A walking boot was ordered for her previously and she will be able to get this dispensed when she is transition to the rehabilitation unit. She is tentatively scheduled to go to the transitional care unit or rehab this upcoming Saturday, tomorrow. It is okay to get transferred over at this time from a podiatry standpoint and we are likely waiting on the insurance prior authorization. I recommend she use an assistive device if needed. To continue Nish wrap and limb elevation. I will continue to follow her when she is transferred. Please not hesitate to call if you have any questions. Lou Gee DPM, [facility] [phone]
[2019-04-16] MEDS: Ipratropium/Albuterol Sulfate 3 ML AMPUL.NEB INHALATION ×4 (07:12→19:37)
[2019-04-16] MEDS: Insulin Lispro 100 UNIT/ML INSULN.PEN SC ×5 (07:57→23:28)
[2019-04-16] MEDS: Insulin Lispro 100 UNIT/ML INSULN.PEN 12 UNIT SC ×3 (07:58→16:45)
[2019-04-16] MEDS: Morphine 2 MG/ML Syringe IV ×3 (08:00→14:13)
[2019-04-16] MEDS: predniSONE 20 MG Tablet 40 MG PO (08:03)
[2019-04-16] MEDS: Multivitamins,Therapeutic Tablet 1 TABLET PO (08:03)
[2019-04-16 08:20] LABS: Bedside Glucose 199 mg/dL (70-110)
[2019-04-16 09:07] LABS: Phosphorus 3.9 mg/dL (2.5-4.9)
[2019-04-16] MEDS: Mirabegron 25 MG TAB.ER.24H PO (09:11)
[2019-04-16] MEDS: Magnesium Oxide 400 MG Tablet PO ×2 (09:11→23:21)
[2019-04-16] MEDS: metOLazone 5 MG Tablet PO (09:11)
[2019-04-16] MEDS: Tolterodine Tartrate 4 MG CAP.SA PO (09:11)
[2019-04-16] MEDS: busPIRone 15 MG TABLET PO ×2 (09:12→23:18)
[2019-04-16] MEDS: Metoprolol(XL)Succ 50 MG Tablet PO ×2 (09:12→23:21)
[2019-04-16] MEDS: Pantoprazole Sodium 20 MG Tablet PO (09:12)
[2019-04-16] MEDS: Lisinopril 5 MG Tablet PO (09:12)
[2019-04-16] MEDS: Furosemide 40 MG Tablet 80 MG PO ×2 (09:16→23:25)
[2019-04-16] MEDS: Mag Hydrox/Al Hydrox/Simeth 30 ML UDC PO (10:40)
[2019-04-16] MEDS: 0.9% Saline Lock 10 ML Syringe IV ×2 (11:14→14:13)
--- NOTE | 2019-04-16 15:12 | PN_ITS ---
<Angel Emerson - Last Filed: 04/16/19 15:12> Patient Problems: Active and Suspected Problems (Last Reviewed 11/07/18 @ 10:48 by Trevon Garsia MD) Gout of left foot (Acute) Pain in left ankle and joints of left foot (Acute) Right foot pain (Acute) Reason for Visit: gout Subjective: Gout pain is severe(Left subtalar joint), complains that it is minimally improved. No fever/chills. Very weak - stands on own, needed assistance to pivot. Could not walk. She became very SOB with this much exertion. She has been using bipap here, she has trilogy at home and follows Dr. Abraham. No cough. Vitals/I&O's: Vital Signs Temp Pulse Resp BP Pulse Ox 97.8 F 99 24 H 148/74 H 96 04/16/19 09:08 04/16/19 14:59 04/16/19 10:55 04/16/19 09:08 04/16/19 09:08 Oxygen Flow Rate (L/min) 4 Oxygen Delivery Method Nasal Cannula Weight: 241 lb 10.026 oz Body Mass Index (BMI) 45.1 Finger Stick Blood Glucose 204 Intake and Output for Last 24 Hours 04/14/19 04/15/19 04/16/19 23:59 23:59 23:59 Intake Total 2510 / 2510 1680 / 1680 760 / 760 Output Total 2300 / 2300 1875 / 1875 950 / 950 Balance 210 / 210 -195 / -195 -190 / -190 General: Alert, Oriented x3, Cooperative HEENT: Atraumatic, PERRLA, EOMI, Normocephalic Neck: Supple, No JVD, Negative Carotid Bruits Lungs: Clear to auscultation, Diminished Cardiovascular: Regular rate, No murmurs Abdomen: Bowel Sounds Present, Soft, Non Tender Extremities: Capillary Refill Less than 3 Seconds, Edema - non pitting edema Left foot. No erythema. Tender to light palp. Skin: No rashes, No breakdown Musculoskeletal: No Tenderness to Palpation of Joints or Extremities Neurological: Cranial nerves II-XII grossly intact Psych/Mental Status: Anxious, Alert and oriented to time, place, person, mood and affect Microbiology Past 72 Hours 04/14/19 07:05 Fluid - Synovial (joint) Gram Stain - Final 04/14/19 07:05 Fluid - Synovial (joint) Body Fluid Culture - Preliminary No growth-Final to follow 04/14/19 07:05 Fluid - Synovial (joint) Anaerobic Culture - Preliminary No growth in 48 hours. 04/13/19 19:45 Mucosa - Nose Respiratory Panel (PCR) - Final Laboratory Results 04/15/19 16:41: POC Glucose 354 H 04/15/19 20:42: POC Glucose 325 H 04/16/19 05:05: Sodium 138, Potassium 3.2 L, Chloride 93 L, Carbon Dioxide 40.0 H, Anion Gap 5, BUN 27 H, Creatinine 0.83, Estim Creat Clear Calc 46.23, Est GFR (MDRD) Af Amer 86, Est GFR (MDRD) Non-Af 71, BUN/Creatinine Ratio 32.4 H, Glucose 170 H, Calcium 9.6 04/16/19 05:05: Phosphorus 3.9 04/16/19 07:53: POC Glucose 199 H Current Medications Acetaminophen (Tylenol) 650 mg PO Q6H PRN PRN PRN Reason: Pain Score 1-10/Temp > 100.7 F Last Admin: 04/14/19 08:28 Dose: 650 mg Documented by: Al Hydroxide/Mg Hydroxide (Mylanta Ii) 30 ml PO Q6H PRN PRN PRN Reason: Gastric Burning Last Admin: 04/16/19 10:40 Dose: 30 ml Documented by: Albuterol Sulfate (Ventolin Aerosols) 2.5 mg INHALATION Q2H PRN PRN PRN Reason: SHORTNESS OF BREATH Last Admin: 04/15/19 08:49 Dose: 2.5 mg Documented by: Albuterol/Ipratropium (Duoneb) 3 ml INHALATION Q4HWA.RT [facility] Last Admin: 04/16/19 15:02 Dose: 3 ml Documented by: Atorvastatin Calcium (Lipitor) 40 mg PO QHS [facility] Last Admin: 04/15/19 21:10 Dose: 40 mg Documented by: Buspirone HCl (Buspar) 15 mg PO BID [facility] Last Admin: 04/16/19 09:12 Dose: 15 mg Documented by: Dicyclomine HCl (Bentyl) 10 mg PO ACHS [facility] Last Admin: 04/16/19 10:38 Dose: 10 mg Documented by: Fluticasone Propionate (Flonase Nasal [place]) 2 spray NASAL QHS [facility] Last Admin: 04/15/19 21:11 Dose: 2 spray Documented by: Furosemide (Lasix) 80 mg PO BID [facility] Last Admin: 04/16/19 09:16 Dose: 80 mg Documented by: Glucagon () 1 mg IM .X1 PRN PRN Reason: Hypoglycemia Heparin Sodium (Porcine) (Heparin Na) 5,000 unit SC Q8 [facility] Last Admin: 04/16/19 14:13 Dose: 5,000 unit Documented by: Dextrose (Dextrose 10%-Water) 250 mls @ 999 mls/hr IV .Q16M PRN; Protocol PRN Reason: HYPOGLYCEMIA Insulin Glargine (Lantus ([facility])) 34 units SC BID [facility] Last Admin: 04/16/19 09:11 Dose: 34 u Documented by: Insulin Human Lispro (Humalog Kwikpen ([facility])) 0 unit SC ACHS [facility]; Protocol Last Admin: 04/16/19 11:11 Dose: 3 units Documented by: Insulin Human Lispro (Humalog Kwikpen ([facility])) 12 unit SC TIDCM [facility] Last Admin: 04/16/19 11:11 Dose: 12 units Documented by: Levothyroxine Sodium (Synthroid) 25 mcg PO DAILY@0600 [facility] Last Admin: 04/16/19 06:00 Dose: 25 mcg Documented by: Lisinopril (Zestril) 5 mg PO DAILY [facility] Last Admin: 04/16/19 09:12 Dose: 5 mg Documented by: Magnesium Oxide (Mag-Ox 400) 400 mg PO BID [facility] Last Admin: 04/16/19 09:11 Dose: 400 mg Documented by: Metoclopramide HCl (Metoclopramide Hcl) 5 mg PO TIDAC [facility] Last Admin: 04/16/19 10:38 Dose: 5 mg Documented by: Metolazone (Zaroxolyn) 5 mg PO DAILY [facility] Last Admin: 04/16/19 09:11 Dose: 5 mg Documented by: Metoprolol Succinate (Toprol Xl (Beta Gisel)) 50 mg PO BID [facility] Last Admin: 04/16/19 09:12 Dose: 50 mg Documented by: Mirabegron (Myrbetriq) 25 mg PO DAILY [facility] Last Admin: 04/16/19 09:11 Dose: 25 mg Documented by: Montelukast Sodium (Singulair) 10 mg PO QHS [facility] Last Admin: 04/15/19 21:10 Dose: 10 mg Documented by: Morphine Sulfate () 1 - 2 mg IV Q3H PRN PRN PRN Reason: Pain Score 1-10/10 Last Admin: 04/16/19 14:13 Dose: 2 mg Documented by: Multivitamins (Multivitamin) 1 tablet PO DAILY@0800 [facility] Last Admin: 04/16/19 08:03 Dose: 1 tablet Documented by: Nitroglycerin (Nitrostat) 0.4 mg SUBLINGUAL Q5M PRN PRN Reason: CARDIAC/CHEST PAIN Ondansetron HCl (Zofran) 4 mg IV Q8H PRN PRN PRN Reason: NAUSEA/VOMITING Pantoprazole Sodium (Protonix) 20 mg PO DAILY [facility] Last Admin: 04/16/19 09:12 Dose: 20 mg Documented by: Potassium Chloride (K-Dur) 40 meq PO BIDCM [facility] Last Admin: 04/16/19 08:03 Dose: 40 meq Documented by: Prednisone () 40 mg PO DAILY@0800 [facility] Last Admin: 04/16/19 08:03 Dose: 40 mg Documented by: Pregabalin (Lyrica) 50 mg PO TID [facility] Last Admin: 04/16/19 14:13 Dose: 50 mg Documented by: Psyllium Hydrophilic Mucilloid (Metamucil) 1 packet PO DAILY PRN PRN PRN Reason: Constipation Sertraline HCl (Zoloft) 200 mg PO QHS [facility] Last Admin: 04/15/19 21:10 Dose: 200 mg Documented by: Sodium Chloride () 10 - 40 ml IV UD PRN PRN Reason: SALINE FLUSH Last Admin: 04/16/19 14:13 Dose: 10 ml Documented by: Sucralfate (Carafate) 1 gm PO 1HR_ACHS [facility] Last Admin: 04/16/19 10:38 Dose: 1 gm Documented by: Tolterodine Tartrate (Detrol La) 4 mg PO DAILY [facility] Last Admin: 04/16/19 09:11 Dose: 4 mg Documented by: Trazodone HCl (Desyrel) 150 mg PO QHS [facility] Last Admin: 04/15/19 21:10 Dose: 150 mg Documented by: STROKE Vital Signs/Narrative: Vital Signs Pulse 04/16/19 14:59 99 Medical Necessity - Tobacco Use Smoking Status: Former smoker Tobacco Use: Cigarettes Assessment/Plan All Active Problems (Last Reviewed 11/07/18 @ 10:48 by Trevon Garsia MD) Gout of left foot (Acute) Pain in left ankle and joints of left foot (Acute) Right foot pain (Acute) Right-sided heart failure (Acute) Cervicalgia (Resolved) Chest pain (Resolved) Diarrhea (Resolved) Gastroenteritis (Resolved) H/O hemorrhoidectomy (Resolved) History of tonsillectomy (Resolved) Hyperglycemia (Resolved) Hypokalemia (Resolved) Recent urinary tract infection (Resolved) S/P wrist surgery (Resolved) 1. Acute gout left subtalar joint - continue prednisone. Dr. Gee following. No DVT. NISH wrap for swelling. Recently had gout in the right foot reportedly. Aspiration negative for growth. 2. Chronic hypoxic respiratory failure - severe COPD. Continue bipap at night. continue aerosols. No exacerbation at this time. She is SOB with activity. Suspect deconditioned. Add Incentive spirometer. Resp panel negative. 3. Hypokalemia - replete. 4. Chronic diastolic CHF - no exacerbation . EF 65%. Moderate . 5. Hypothyroid - synthroid 6. Depression/Anxiety - home meds 7. T2DM with morbid obesity - SSI. orals held. Dietary following. 8. SCOTTY - trilogy at home. Using bipap here. 9. HLD - statin 10. GERD - ppi, carafate 11. Hx NHL in remission. DVT ppx: heparin DC planning: to SNF. Pt very weak and unable to walk on her own. She lives alone. This patient was seen by Angel Emerson PA-C under the supervision of Doctor Wharton. <Deysi Wharton - Last Filed: 04/17/19 08:36> Vitals/I&O's: Vital Signs Temp Pulse Resp BP Pulse Ox 96.9 F L 75 18 151/73 H 96 04/17/19 04:25 04/17/19 06:48 04/17/19 06:48 04/17/19 04:25 04/17/19 04:25 Oxygen Flow Rate (L/min) 4 Oxygen Delivery Method Nasal Cannula Weight: 109.6 kg Body Mass Index (BMI) 45.1 Finger Stick Blood Glucose 204 Intake and Output for Last 24 Hours 04/15/19 04/16/19 04/17/19 23:59 23:59 23:59 Intake Total 1680 / 1680 1380 / 1380 0 / 0 Output Total 1875 / 1875 1700 / 1700 1000 / 1000 Balance -195 / -195 -320 / -320 -1000 / -1000 Microbiology Past 72 Hours 04/14/19 07:05 Fluid - Synovial (joint) Gram Stain - Final 04/14/19 07:05 Fluid - Synovial (joint) Body Fluid Culture - Preliminary No growth-Final to follow 04/14/19 07:05 Fluid - Synovial (joint) Anaerobic Culture - Preliminary No growth in 48 hours. 04/13/19 19:45 Mucosa - Nose Respiratory Panel (PCR) - Final Laboratory Results 04/16/19 05:05: Phosphorus 3.9 04/16/19 11:00: POC Glucose 304 H 04/16/19 16:43: POC Glucose 411 H 04/16/19 23:15: POC Glucose 221 H 04/17/19 04:50: Sodium 137, Potassium 4.0, Chloride 94 L, Carbon Dioxide 40.0 H, Anion Gap 3 L, BUN 33 H, Creatinine 0.90, Estim Creat Clear Calc 42.64, Est GFR (MDRD) Af Amer 80, Est GFR (MDRD) Non-Af 66, BUN/Creatinine Ratio 36.9 H, Glucose 190 H, Calcium 9.9 04/17/19 08:04: POC Glucose 243 H Current Medications Acetaminophen (Tylenol) 650 mg PO Q6H PRN PRN PRN Reason: Pain Score 1-10/Temp > 100.7 F Last Admin: 04/16/19 23:25 Dose: 650 mg Documented by: Al Hydroxide/Mg Hydroxide (Mylanta Ii) 30 ml PO Q6H PRN PRN PRN Reason: Gastric Burning Last Admin: 04/16/19 10:40 Dose: 30 ml Documented by: Albuterol Sulfate (Ventolin Aerosols) 2.5 mg INHALATION Q2H PRN PRN PRN Reason: SHORTNESS OF BREATH Last Admin: 04/15/19 08:49 Dose: 2.5 mg Documented by: Albuterol/Ipratropium (Duoneb) 3 ml INHALATION Q4HWA.RT [facility] Last Admin: 04/17/19 06:46 Dose: 3 ml Documented by: Atorvastatin Calcium (Lipitor) 40 mg PO QHS [facility] Last Admin: 04/16/19 23:20 Dose: 40 mg Documented by: Buspirone HCl (Buspar) 15 mg PO BID [facility] Last Admin: 04/16/19 23:18 Dose: 15 mg Documented by: Dicyclomine HCl (Bentyl) 10 mg PO ACHS [facility] Last Admin: 04/17/19 06:09 Dose: 10 mg Documented by: Fluticasone Propionate (Flonase Nasal [place]) 2 spray NASAL QHS [facility] Last Admin: 04/16/19 23:18 Dose: 2 spray Documented by: Furosemide (Lasix) 80 mg PO BID [facility] Last Admin: 04/16/19 23:25 Dose: 80 mg Documented by: Glucagon () 1 mg IM .X1 PRN PRN Reason: Hypoglycemia Heparin Sodium (Porcine) (Heparin Na) 5,000 unit SC Q8 [facility] Last Admin: 04/17/19 05:27 Dose: 5,000 unit Documented by: Dextrose (Dextrose 10%-Water) 250 mls @ 999 mls/hr IV .Q16M PRN; Protocol PRN Reason: HYPOGLYCEMIA Insulin Glargine (Lantus ([facility])) 34 units SC BID [facility] Last Admin: 04/16/19 23:28 Dose: 34 u Documented by: Insulin Human Lispro (Humalog Kwikpen ([facility]k)) 0 unit SC [facility]; Protocol Last Admin: 04/17/19 08:06 Dose: 2 units Documented by: Insulin Human Lispro (Humalog Kwikpen (Bk)) 12 unit SC TIDCM [facility] Last Admin: 04/17/19 08:05 Dose: 12 units Documented by: Levothyroxine Sodium (Synthroid) 25 mcg PO DAILY@0600 [facility] Last Admin: 04/17/19 05:27 Dose: 25 mcg Documented by: Lisinopril (Zestril) 5 mg PO DAILY [facility] Last Admin: 04/16/19 09:12 Dose: 5 mg Documented by: Magnesium Oxide (Mag-Ox 400) 400 mg PO BID [facility] Last Admin: 04/16/19 23:21 Dose: 400 mg Documented by: Metoclopramide HCl (Metoclopramide Hcl) 5 mg PO TIDAC [facility] Last Admin: 04/17/19 08:05 Dose: 5 mg Documented by: Metolazone (Zaroxolyn) 5 mg PO DAILY [facility] Last Admin: 04/16/19 09:11 Dose: 5 mg Documented by: Metoprolol Succinate (Toprol Xl (Beta Gisel)) 50 mg PO BID [facility] Last Admin: 04/16/19 23:21 Dose: 50 mg Documented by: Mirabegron (Myrbetriq) 25 mg PO DAILY [facility] Last Admin: 04/16/19 09:11 Dose: 25 mg Documented by: Montelukast Sodium (Singulair) 10 mg PO QHS [facility] Last Admin: 04/16/19 23:21 Dose: 10 mg Documented by: Morphine Sulfate () 1 - 2 mg IV Q3H PRN PRN PRN Reason: Pain Score 1-10/10 Last Admin: 04/17/19 05:28 Dose: 1 mg Documented by: Multivitamins (Multivitamin) 1 tablet PO DAILY@0800 [facility] Last Admin: 04/17/19 08:05 Dose: 1 tablet Documented by: Nitroglycerin (Nitrostat) 0.4 mg SUBLINGUAL Q5M PRN PRN Reason: CARDIAC/CHEST PAIN Ondansetron HCl (Zofran) 4 mg IV Q8H PRN PRN PRN Reason: NAUSEA/VOMITING Pantoprazole Sodium (Protonix) 20 mg PO DAILY [facility] Last Admin: 04/16/19 09:12 Dose: 20 mg Documented by: [facility] Last Admin: 04/17/19 08:05 Dose: 40 meq Documented by: Prednisone () 40 mg PO DAILY@0800 [facility] Last Admin: 04/17/19 08:05 Dose: 40 mg Documented by: Pregabalin (Lyrica) 50 mg PO TID [facility] Last Admin: 04/17/19 05:27 Dose: 50 mg Documented by: Psyllium Hydrophilic Mucilloid (Metamucil) 1 packet PO DAILY PRN PRN PRN Reason: Constipation Sertraline HCl (Zoloft) 200 mg PO QHS [facility] Last Admin: 04/16/19 23:21 Dose: 200 mg Documented by: Sodium Chloride () 10 - 40 ml IV UD PRN PRN Reason: SALINE FLUSH Last Admin: 04/17/19 05:28 Dose: 20 ml Documented by: Sucralfate (Carafate) 1 gm PO 1HR_ACHS [facility] Last Admin: 04/17/19 06:09 Dose: 1 gm Documented by: Tolterodine Tartrate (Detrol La) 4 mg PO DAILY [facility] Last Admin: 04/16/19 09:11 Dose: 4 mg Documented by: Trazodone HCl (Desyrel) 150 mg PO QHS [facility] Last Admin: 04/16/19 23:18 Dose: 150 mg Documented by: STROKE Vital Signs/Narrative: Vital Signs Pulse Resp 04/17/19 06:48 75 18 04/17/19 06:46 80 Assessment/Plan This patient was seen in conjunction with MADAN Shaver. I have independently interviewed and examined the patient and reviewed pertinent historical, laboratory, and other data. Please refer to MADAN Shaver note for his patient's presentation, findings, and recommendations. I have reviewed and his note and concur with his documentation Patient was seen and examined. She complains of pain and itching in the left foot where is been wrapped. Complains also of pain along the ligaments of both feet. Patient is on prednisone. Physical Exam: Gen: Looks in some discomfort, not pale, not jaundiced, morbidly obese CVS:HS I +II, regular, no murmurs RESP: Diminished at lung bases GI: BS present and normal, soft, nontender, no palpable organs EXT:No edema, Nish wrap to the left lower leg ASSESSMENT: 1. Acute gout, left ankle 2. Hypokalemia 3. Chronic diastolic CHF 4. Hypothyroidism 5. Anxiety/depression 6. Type II DM 7. Morbid Obesity Plan: Code Visit Inpatient E&M: 45170 Subs Hosp L2
[2019-04-16 16:56] LABS: Bedside Glucose 411 mg/dL (70-110)
[2019-04-16 17:06] LABS: Bedside Glucose 304 mg/dL (70-110)
[2019-04-16] MEDS: traZODone 100 MG Tablet 150 MG PO (23:18)
[2019-04-16] MEDS: Fluticasone 0.05% 1 SPRAY NASAL.SRY 2 SPRAY NASAL (23:18)
[2019-04-16] MEDS: Atorvastatin Calcium 40 MG Tablet PO (23:20)
[2019-04-16] MEDS: Sertraline 100 MG Tablet 200 MG PO (23:21)
[2019-04-16] MEDS: Montelukast 10 MG Tablet PO (23:21)
[2019-04-16] MEDS: Acetaminophen 325 MG Tablet 650 MG PO (23:25)
[2019-04-17] VITALS (15 sets, daily range): BP systolic 130–151; BP diastolic 73–78; PULSE 71–83; RESP 18–22; TEMP 36.1–36.7; O2SAT 94–97
[2019-04-17 01:01] LABS: Bedside Glucose 221 mg/dL (70-110)
[2019-04-17] MEDS: 0.9% Saline Lock 10 ML Syringe IV ×3 (04:51→13:29)
[2019-04-17 05:27] LABS: Anion Gap 3 (5-15); BUN 33 mg/dL (7-18); BUN/Creat Ratio 36.9 RATIO (10-20); Calcium,Total 9.9 mg/dL (8.5-10.1); Chloride 94 mmol/L (98-107); EST Glomerular Filtration Rate 66 mL/min (>60); Est Glom Filt Rate - Afr Amer 80 mL/min (>60); Estimated Creatinine Clearance 42.64 ml/min; Glucose 190 mg/dL (74-106); Sodium Level 137 mmol/L (136-145)
[2019-04-17] MEDS: Heparin Injection (Vial) 5,000 UNIT/ML VIAL 5000 UNIT SC ×2 (05:27→13:28)
[2019-04-17] MEDS: Levothyroxine 25 MCG TABLET PO (05:27)
[2019-04-17] MEDS: Pregabalin 50 MG Capsule PO ×2 (05:27→13:27)
[2019-04-17] MEDS: Morphine 2 MG/ML Syringe IV ×2 (05:28→13:28)
[2019-04-17] MEDS: Dicyclomine 10 MG Capsule PO ×3 (06:09→16:37)
[2019-04-17] MEDS: Sucralfate 1 GM Tablet PO ×3 (06:09→16:37)
[2019-04-17] MEDS: Ipratropium/Albuterol Sulfate 3 ML AMPUL.NEB INHALATION ×4 (06:46→19:00)
[2019-04-17] MEDS: Insulin Lispro 100 UNIT/ML INSULN.PEN 12 UNIT SC (08:05)
[2019-04-17] MEDS: Multivitamins,Therapeutic Tablet 1 TABLET PO (08:05)
[2019-04-17] MEDS: predniSONE 20 MG Tablet 40 MG PO (08:05)
[2019-04-17] MEDS: Metoclopramide 5 MG TABLET PO ×3 (08:05→16:38)
[2019-04-17] MEDS: Insulin Lispro 100 UNIT/ML INSULN.PEN SC ×3 (08:06→16:36)
[2019-04-17 08:15] LABS: Bedside Glucose 243 mg/dL (70-110)
[2019-04-17 09:27] LABS: AST(SGOT) 56 U/L (15-37); Alanine Aminotransfer ALT/SGPT 64 U/L (13-56); Albumin, Serum 2.9 g/dL (3.2-5.0); Alkaline Phosphatase 119 U/L (45-117); Bilirubin, Direct 0.15 mg/dL (0.00-0.30); Globulin 4.7 g/dL (2.2-4.2); Protein, Total 7.6 g/dL (6.4-8.2)
[2019-04-17 09:38] LABS: BNP,B-Type NATRIURETIC PEPTIDE 177.1 pg/mL (0-100)
[2019-04-17] MEDS: Furosemide 40 MG Tablet 80 MG PO (10:14)
[2019-04-17] MEDS: Magnesium Oxide 400 MG Tablet PO (10:15)
[2019-04-17] MEDS: Lisinopril 5 MG Tablet PO (10:16)
[2019-04-17] MEDS: Mirabegron 25 MG TAB.ER.24H PO (10:16)
[2019-04-17] MEDS: Metoprolol(XL)Succ 50 MG Tablet PO (10:16)
[2019-04-17] MEDS: busPIRone 15 MG TABLET PO (10:16)
[2019-04-17] MEDS: Tolterodine Tartrate 4 MG CAP.SA PO (10:16)
[2019-04-17] MEDS: Pantoprazole Sodium 20 MG Tablet PO (10:16)
[2019-04-17] MEDS: metOLazone 5 MG Tablet PO (10:16)
--- NOTE | 2019-04-17 10:22 | CASEMGMT ---
SONI spoke with Kell and insurance called her to let her know that [facility] no longer in network with patient's insurance. SW spoke with patient and let her know this information. She was upset, but SW explained to her this is beyond our control at the moment. SW gave her a list of facilities that are in network. She chose [facility]. SONI called [facility] with referral and also faxed information. SONI spoke with Nicole a short while later and she asked about the Victoza and a bi-pap. SONI spoke with patient and she does not have anyone that can go to her home and get her Victoza or trilogy. SW notified physician and they will change her medicine. SW asked Nicole if they could assist patient in getting her trilogy. She checked and the only way they could do this is if someone was at patient's home to let them in. She will order the bi-pap. SONI faxed the settings. SONI will talk with patient about whether or not she could have someone meet [facility] at her home to get her trilogy. Nicole started pre-cert. Tracy CADET [employer]ATIONS PROFESSIONAL
[2019-04-17] MEDS: Insulin Lispro 100 UNIT/ML INSULN.PEN 15 UNIT SC ×2 (11:01→16:36)
[2019-04-17 11:16] LABS: Bedside Glucose 301 mg/dL (70-110)
--- NOTE | 2019-04-17 13:40 | CASEMGMT ---
SONI notified patient that [facility] can accept her and we are waiting on insurance to approve. Tracy CADET MSW
--- NOTE | 2019-04-17 13:49 | PCM.PN.HOSP ---
<Angel Emerson - Last Filed: 04/17/19 13:49> Reason for Visit: L foot pain Subjective: Patient reports improvement in the pain over left leg, improvement in shortness of breath, improved wheezing. No cough. No fevers or chills. Patient is waiting to go to alf. She is in chair bedside no acute distress. Vitals/I&O's: Vital Signs Temp Pulse Resp BP Pulse Ox 98.0 F 78 22 H 142/75 H 97 04/17/19 10:13 04/17/19 10:47 04/17/19 10:47 04/17/19 10:13 04/17/19 10:47 Oxygen Flow Rate (L/min) 4 Oxygen Delivery Method Nasal Cannula Weight: 241 lb 10.026 oz Body Mass Index (BMI) 45.1 Finger Stick Blood Glucose 204 Intake and Output for Last 24 Hours 04/15/19 04/16/19 04/17/19 23:59 23:59 23:59 Intake Total 1680 / 1680 1380 / 1380 300 / 300 Output Total 1875 / 1875 1700 / 1700 1999 Balance -195 / -195 -320 / -320 -1700 / -1700 General: Alert, Oriented x3, Cooperative HEENT: Atraumatic, PERRLA, EOMI, Normocephalic Neck: Supple, No JVD, Negative Carotid Bruits Lungs: Diminished, Wheezes Cardiovascular: Regular rate, No murmurs Abdomen: Bowel Sounds Present, Soft, Non Tender Extremities: No edema, Capillary Refill Less than 3 Seconds Skin: No rashes, No breakdown Musculoskeletal: No Tenderness to Palpation of Joints or Extremities Neurological: Cranial nerves II-XII grossly intact Psych/Mental Status: Normal Affect, Appropriate, Alert and oriented to time, place, person, mood and affect Microbiology Past 72 Hours 04/14/19 07:05 Fluid - Synovial (joint) Gram Stain - Final 04/14/19 07:05 Fluid - Synovial (joint) Body Fluid Culture - Preliminary No growth-Final to follow 04/14/19 07:05 Fluid - Synovial (joint) Anaerobic Culture - Preliminary No growth in 48 hours. 04/13/19 19:45 Mucosa - Nose Respiratory Panel (PCR) - Final Laboratory Results 04/16/19 11:00: POC Glucose 304 H 04/16/19 16:43: POC Glucose 411 H 04/16/19 23:15: POC Glucose 221 H 04/17/19 04:50: Sodium 137, Potassium 4.0, Chloride 94 L, Carbon Dioxide 40.0 H, Anion Gap 3 L, BUN 33 H, Creatinine 0.90, Estim Creat Clear Calc 42.64, Est GFR (MDRD) Af Amer 80, Est GFR (MDRD) Non-Af 66, BUN/Creatinine Ratio 36.9 H, Glucose 190 H, Calcium 9.9 04/17/19 04:50: Total Bilirubin 0.50, Direct Bilirubin 0.15, AST 56 H, ALT 64 H, Alkaline Phosphatase 119 H, Total Protein 7.6, Albumin 2.9 L, Globulin 4.7 H 04/17/19 04:50: B-Natriuretic Peptide 177.1 H 04/17/19 08:04: POC Glucose 243 H 04/17/19 10:59: POC Glucose 301 H Current Medications Acetaminophen (Tylenol) 650 mg PO Q6H PRN PRN PRN Reason: Pain Score 1-10/Temp > 100.7 F Last Admin: 04/16/19 23:25 Dose: 650 mg Documented by: Al Hydroxide/Mg Hydroxide (Mylanta Ii) 30 ml PO Q6H PRN PRN PRN Reason: Gastric Burning Last Admin: 04/16/19 10:40 Dose: 30 ml Documented by: Albuterol Sulfate (Ventolin Aerosols) 2.5 mg INHALATION Q2H PRN PRN PRN Reason: SHORTNESS OF BREATH Last Admin: 04/15/19 08:49 Dose: 2.5 mg Documented by: Albuterol/Ipratropium (Duoneb) 3 ml INHALATION Q4HWA.RT COUNT INCLUDES THE [facility] Last Admin: 04/17/19 10:47 Dose: 3 ml Documented by: Atorvastatin Calcium (Lipitor) 40 mg PO QHS COUNT INCLUDES THE [facility] Last Admin: 04/16/19 23:20 Dose: 40 mg Documented by: Buspirone HCl (Buspar) 15 mg PO BID COUNT INCLUDES THE [facility] Last Admin: 04/17/19 10:16 Dose: 15 mg Documented by: Dicyclomine HCl (Bentyl) 10 mg PO ACHS COUNT INCLUDES THE [facility] Last Admin: 04/17/19 10:15 Dose: 10 mg Documented by: Fluticasone Propionate (Flonase Nasal [place]) 2 spray NASAL QHS COUNT INCLUDES THE [facility] Last Admin: 04/16/19 23:18 Dose: 2 spray Documented by: Furosemide (Lasix) 80 mg PO BID COUNT INCLUDES THE [facility] Last Admin: 04/17/19 10:14 Dose: 80 mg Documented by: Glucagon () 1 mg IM .X1 PRN PRN Reason: Hypoglycemia Heparin Sodium (Porcine) (Heparin Na) 5,000 unit SC Q8 COUNT INCLUDES THE [facility] Last Admin: 04/17/19 13:28 Dose: 5,000 unit Documented by: Dextrose (Dextrose 10%-Water) 250 mls @ 999 mls/hr IV .Q16M PRN; Protocol PRN Reason: HYPOGLYCEMIA Insulin Glargine (Lantus (Bkc)) 40 units SC BID COUNT INCLUDES THE [facility] Insulin Human Lispro (Humalog Kwikpen (Bkc)) 0 unit SC ACHS COUNT INCLUDES THE [facility]; Protocol Last Admin: 04/17/19 11:02 Dose: 9 units Documented by: Insulin Human Lispro (Humalog Kwikpen (Bkc)) 15 unit SC TIDCM COUNT INCLUDES THE [facility] Last Admin: 04/17/19 11:01 Dose: 15 unit Documented by: Levothyroxine Sodium (Synthroid) 25 mcg PO DAILY@0600 COUNT INCLUDES THE [facility] Last Admin: 04/17/19 05:27 Dose: 25 mcg Documented by: Lisinopril (Zestril) 5 mg PO DAILY COUNT INCLUDES THE [facility] Last Admin: 04/17/19 10:16 Dose: 5 mg Documented by: Magnesium Oxide (Mag-Ox 400) 400 mg PO BID COUNT INCLUDES THE [facility] Last Admin: 04/17/19 10:15 Dose: 400 mg Documented by: Metoclopramide HCl (Metoclopramide Hcl) 5 mg PO TIDAC COUNT INCLUDES THE [facility] Last Admin: 04/17/19 10:16 Dose: 5 mg Documented by: Metolazone (Zaroxolyn) 5 mg PO DAILY COUNT INCLUDES THE [facility] Last Admin: 04/17/19 10:16 Dose: 5 mg Documented by: Metoprolol Succinate (Toprol Xl (Beta Gisel)) 50 mg PO BID COUNT INCLUDES THE [facility] Last Admin: 04/17/19 10:16 Dose: 50 mg Documented by: Mirabegron (Myrbetriq) 25 mg PO DAILY COUNT INCLUDES THE [facility] Last Admin: 04/17/19 10:16 Dose: 25 mg Documented by: Montelukast Sodium (Singulair) 10 mg PO QHS COUNT INCLUDES THE [facility] Last Admin: 04/16/19 23:21 Dose: 10 mg Documented by: Morphine Sulfate () 1 - 2 mg IV Q3H PRN PRN PRN Reason: Pain Score 1-10/10 Last Admin: 04/17/19 13:28 Dose: 2 mg Documented by: Multivitamins (Multivitamin) 1 tablet PO DAILY@0800 COUNT INCLUDES THE [facility] Last Admin: 04/17/19 08:05 Dose: 1 tablet Documented by: Nitroglycerin (Nitrostat) 0.4 mg SUBLINGUAL Q5M PRN PRN Reason: CARDIAC/CHEST PAIN Ondansetron HCl (Zofran) 4 mg IV Q8H PRN PRN PRN Reason: NAUSEA/VOMITING Pantoprazole Sodium (Protonix) 20 mg PO DAILY COUNT INCLUDES THE [facility] Last Admin: 04/17/19 10:16 Dose: 20 mg Documented by: Potassium Chloride (K-Dur) 40 meq PO BIDCM COUNT INCLUDES THE [facility] Last Admin: 04/17/19 08:05 Dose: 40 meq Documented by: Prednisone () 40 mg PO DAILY@0800 COUNT INCLUDES THE [facility] Last Admin: 04/17/19 08:05 Dose: 40 mg Documented by: Pregabalin (Lyrica) 50 mg PO TID COUNT INCLUDES THE [facility] Last Admin: 04/17/19 13:27 Dose: 50 mg Documented by: Psyllium Hydrophilic Mucilloid (Metamucil) 1 packet PO DAILY PRN PRN PRN Reason: Constipation Sertraline HCl (Zoloft) 200 mg PO QHS COUNT INCLUDES THE [facility] Last Admin: 04/16/19 23:21 Dose: 200 mg Documented by: Sodium Chloride () 10 - 40 ml IV UD PRN PRN Reason: SALINE FLUSH Last Admin: 04/17/19 13:29 Dose: 10 ml Documented by: Sucralfate (Carafate) 1 gm PO 1HR_ACHS COUNT INCLUDES THE [facility] Last Admin: 04/17/19 10:17 Dose: 1 gm Documented by: Tolterodine Tartrate (Detrol La) 4 mg PO DAILY COUNT INCLUDES THE [facility] Last Admin: 04/17/19 10:16 Dose: 4 mg Documented by: Trazodone HCl (Desyrel) 150 mg PO QHS COUNT INCLUDES THE [facility] Last Admin: 04/16/19 23:18 Dose: 150 mg Documented by: STROKE Vital Signs/Narrative: Vital Signs Temp Pulse Resp BP Pulse Ox 04/17/19 10:47 78 22 H 97 04/17/19 10:16 76 04/17/19 10:13 98.0 F 76 18 142/75 H 94 Medical Necessity - Tobacco Use Smoking Status: Former smoker Tobacco Use: Cigarettes Assessment/Plan All Active Problems (Last Reviewed 11/07/18 @ 10:48 by Trevon Garsia MD) Gout of left foot (Acute) Pain in left ankle and joints of left foot (Acute) Right foot pain (Acute) Right-sided heart failure (Acute) Cervicalgia (Resolved) Chest pain (Resolved) Diarrhea (Resolved) Gastroenteritis (Resolved) H/O hemorrhoidectomy (Resolved) History of tonsillectomy (Resolved) Hyperglycemia (Resolved) Hypokalemia (Resolved) Recent urinary tract infection (Resolved) S/P wrist surgery (Resolved) 1. Acute gout left subtalar joint - continue prednisone. Dr. Gee following. No DVT. NISH wrap for swelling. Recently had gout in the right foot reportedly. Aspiration negative for growth. 2. Chronic hypoxic respiratory failure - severe COPD. Continue bipap at night. continue aerosols. No exacerbation at this time. She is SOB with activity. Suspect deconditioned. Add Incentive spirometer. Resp panel negative. 3. Hypokalemia - replete. 4. Chronic diastolic CHF - no exacerbation . EF 65%. Moderate . 5. Hypothyroid - synthroid 6. Depression/Anxiety - home meds 7. T2DM with morbid obesity - SSI. orals held. Dietary following. Mealtime insulin and long-acting insulin increased. Patient will be unable to go to the halfway back on Victoza so we will plan to continue her increased dose of insulin and continue sliding scale at discharge. 8. SCOTTY - trilogy at home. Using bipap here. 9. HLD - statin 10. GERD - ppi, carafate 11. Hx NHL in remission. DVT ppx: heparin DC planning: to SNF. Pt very weak and unable to walk on her own. She lives alone. This patient was seen by Angel Emerson PA-C under the supervision of Doctor Dio. <Deysi Wharton - Last Filed: 04/18/19 16:36> Vitals/I&O's: Vital Signs Temp Pulse Resp BP Pulse Ox 97.7 F L 82 20 H 145/78 H 94 04/17/19 18:27 04/17/19 19:00 04/17/19 19:00 04/17/19 18:27 04/17/19 18:27 Oxygen Flow Rate (L/min) 4 Oxygen Delivery Method Nasal Cannula Weight: 109.6 kg Body Mass Index (BMI) 45.1 Finger Stick Blood Glucose 204 Intake and Output for Last 24 Hours 04/16/19 04/17/19 04/18/19 23:59 23:59 23:59 Intake Total 1380 / 1380 300 / 300 Output Total 1700 / 1700 2500 / 2500 Balance -320 / -320 -2200 / -2200 Microbiology Past 72 Hours 04/14/19 07:05 Fluid - Synovial (joint) Gram Stain - Final 04/14/19 07:05 Fluid - Synovial (joint) Body Fluid Culture - Preliminary No growth-Final to follow 04/14/19 07:05 Fluid - Synovial (joint) Anaerobic Culture - Preliminary No growth in 48 hours. Laboratory Results 04/17/19 16:32: POC Glucose 411 H Assessment/Plan This patient was seen in conjunction with MADAN Shaver. I have independently interviewed and examined the patient and reviewed pertinent historical, laboratory, and other data. Please refer to MADAN Shaver note for his patient's presentation, findings, and recommendations. I have reviewed and his note and concur with his documentation Patient was seen and examined. Still has fair amount of pain in the left foot. Physical Exam: Gen: Looks in some discomfort, not pale, not jaundiced, morbidly obese CVS:HS I +II, regular, no murmurs RESP: Diminished at lung bases GI: BS present and normal, soft, nontender, no palpable organs EXT:No edema, Nish wrap to the left lower leg ASSESSMENT: 1. Acute gout, left ankle 2. Hypokalemia 3. Chronic diastolic CHF 4. Hypothyroidism 5. Anxiety/depression 6. Type II DM 7. Morbid Obesity Code Visit Inpatient E&M: 40910 Subs Hosp L2
--- NOTE | 2019-04-17 15:26 | PN_ITS ---
Patient Problems: Active and Suspected Problems (Last Reviewed 11/07/18 @ 10:48 by Trevon Garsia MD) Gout of left foot (Acute) Pain in left ankle and joints of left foot (Acute) Right foot pain (Acute) Subjective: This 73-year-old female seen bedside for left foot gout that is doing much better today. She relates that she has rare discomfort. Her Nish wrap is irritating her and this was removed. She is tentatively planning on being discharged to an outside alf facility. She was not able to obtain her boot while in house possibly due to an insurance contract conflict. - Physical Exam Vitals/I&O's: Vital Signs Temp Pulse Resp BP Pulse Ox 98.0 F 75 22 H 142/75 H 96 04/17/19 10:13 04/17/19 14:40 04/17/19 14:40 04/17/19 10:13 04/17/19 14:42 Oxygen Flow Rate (L/min) 3.5 Oxygen Delivery Method Nasal Cannula Weight: 109.6 kg Body Mass Index (BMI) 45.1 Finger Stick Blood Glucose 204 Intake and Output for Last 24 Hours 04/15/19 04/16/19 04/17/19 23:59 23:59 23:59 Intake Total 1680 / 1680 1380 / 1380 300 / 300 Output Total 1875 / 1875 1700 / 1700 1999 Balance -195 / -195 -320 / -320 -1700 / -1700 General: Alert, Oriented x3, Cooperative Extremities: No cyanosis, Capillary Refill Less than 3 Seconds, No Calf Tenderness - Negative Maya sign left, Edema Skin: - - Erythema has resolved skin wrinkles increased suggesting decreased edema to left lower extremity. No drainage or open lesion. Musculoskeletal: No Tenderness to Palpation of Joints or Extremities, - - Reso lved pain to palpate the subtalar joint and ankle left. Compartments are soft to left lower extremity. There is some passive range of motion discomfort with inversion eversion near the subtalar joint however this is significantly reduced Neurological: Sensory exam intact to light touch and pain Psych/Mental Status: Normal Affect, Appropriate Microbiology Past 72 Hours 04/14/19 07:05 Fluid - Synovial (joint) Gram Stain - Final 04/14/19 07:05 Fluid - Synovial (joint) Body Fluid Culture - Preliminary No growth-Final to follow 04/14/19 07:05 Fluid - Synovial (joint) Anaerobic Culture - Preliminary No growth in 48 hours. Laboratory Results 04/16/19 11:00: POC Glucose 304 H 04/16/19 16:43: POC Glucose 411 H 04/16/19 23:15: POC Glucose 221 H 04/17/19 04:50: Sodium 137, Potassium 4.0, Chloride 94 L, Carbon Dioxide 40.0 H, Anion Gap 3 L, BUN 33 H, Creatinine 0.90, Estim Creat Clear Calc 42.64, Est GFR (MDRD) Af Amer 80, Est GFR (MDRD) Non-Af 66, BUN/Creatinine Ratio 36.9 H, Glucose 190 H, Calcium 9.9 04/17/19 04:50: Total Bilirubin 0.50, Direct Bilirubin 0.15, AST 56 H, ALT 64 H, Alkaline Phosphatase 119 H, Total Protein 7.6, Albumin 2.9 L, Globulin 4.7 H 04/17/19 04:50: B-Natriuretic Peptide 177.1 H 04/17/19 08:04: POC Glucose 243 H 04/17/19 10:59: POC Glucose 301 H Current Medications Acetaminophen (Tylenol) 650 mg PO Q6H PRN PRN PRN Reason: Pain Score 1-10/Temp > 100.7 F Last Admin: 04/16/19 23:25 Dose: 650 mg Documented by: Al Hydroxide/Mg Hydroxide (Mylanta Ii) 30 ml PO Q6H PRN PRN PRN Reason: Gastric Burning Last Admin: 04/16/19 10:40 Dose: 30 ml Documented by: Albuterol Sulfate (Ventolin Aerosols) 2.5 mg INHALATION Q2H PRN PRN PRN Reason: SHORTNESS OF BREATH Last Admin: 04/15/19 08:49 Dose: 2.5 mg Documented by: Albuterol/Ipratropium (Duoneb) 3 ml INHALATION Q4HWA.RT COUNTS INCLUDE 234 BEDS AT THE [facility] Last Admin: 04/17/19 14:40 Dose: 3 ml Documented by: Atorvastatin Calcium (Lipitor) 40 mg PO QHS COUNTS INCLUDE 234 BEDS AT THE [facility] Last Admin: 04/16/19 23:20 Dose: 40 mg Documented by: Buspirone HCl (Buspar) 15 mg PO BID COUNTS INCLUDE 234 BEDS AT THE [facility] Last Admin: 04/17/19 10:16 Dose: 15 mg Documented by: Dicyclomine HCl (Bentyl) 10 mg PO ACHS COUNTS INCLUDE 234 BEDS AT THE [facility] Last Admin: 04/17/19 10:15 Dose: 10 mg Documented by: Fluticasone Propionate (Flonase Nasal [place]) 2 spray NASAL QHS COUNTS INCLUDE 234 BEDS AT THE [facility] Last Admin: 04/16/19 23:18 Dose: 2 spray Documented by: Furosemide (Lasix) 80 mg PO BID COUNTS INCLUDE 234 BEDS AT THE [facility] Last Admin: 04/17/19 10:14 Dose: 80 mg Documented by: Glucagon () 1 mg IM .X1 PRN PRN Reason: Hypoglycemia Heparin Sodium (Porcine) (Heparin Na) 5,000 unit SC Q8 COUNTS INCLUDE 234 BEDS AT THE [facility] Last Admin: 04/17/19 13:28 Dose: 5,000 unit Documented by: Dextrose (Dextrose 10%-Water) 250 mls @ 999 mls/hr IV .Q16M PRN; Protocol PRN Reason: HYPOGLYCEMIA Insulin Glargine (Lantus (Bkc)) 40 units SC BID COUNTS INCLUDE 234 BEDS AT THE [facility] Insulin Human Lispro (Humalog Kwikpen ([facility])) 0 unit SC [facility]; Protocol Last Admin: 04/17/19 11:02 Dose: 9 units Documented by: Insulin Human Lispro (Humalog Kwikpen (Bk)) 15 unit SC TIDCM COUNTS INCLUDE 234 BEDS AT THE [facility] Last Admin: 04/17/19 11:01 Dose: 15 unit Documented by: Levothyroxine Sodium (Synthroid) 25 mcg PO DAILY@0600 COUNTS INCLUDE 234 BEDS AT THE [facility] Last Admin: 04/17/19 05:27 Dose: 25 mcg Documented by: Lisinopril (Zestril) 5 mg PO DAILY COUNTS INCLUDE 234 BEDS AT THE [facility] Last Admin: 04/17/19 10:16 Dose: 5 mg Documented by: Magnesium Oxide (Mag-Ox 400) 400 mg PO BID COUNTS INCLUDE 234 BEDS AT THE [facility] Last Admin: 04/17/19 10:15 Dose: 400 mg Documented by: Metoclopramide HCl (Metoclopramide Hcl) 5 mg PO TIDAC COUNTS INCLUDE 234 BEDS AT THE [facility] Last Admin: 04/17/19 10:16 Dose: 5 mg Documented by: Metolazone (Zaroxolyn) 5 mg PO DAILY COUNTS INCLUDE 234 BEDS AT THE [facility] Last Admin: 04/17/19 10:16 Dose: 5 mg Documented by: Metoprolol Succinate (Toprol Xl (Beta Gisel)) 50 mg PO BID COUNTS INCLUDE 234 BEDS AT THE [facility] Last Admin: 04/17/19 10:16 Dose: 50 mg Documented by: Mirabegron (Myrbetriq) 25 mg PO DAILY COUNTS INCLUDE 234 BEDS AT THE [facility] Last Admin: 04/17/19 10:16 Dose: 25 mg Documented by: Montelukast Sodium (Singulair) 10 mg PO QHS COUNTS INCLUDE 234 BEDS AT THE [facility] Last Admin: 04/16/19 23:21 Dose: 10 mg Documented by: Morphine Sulfate () 1 - 2 mg IV Q3H PRN PRN PRN Reason: Pain Score 1-10/10 Last Admin: 04/17/19 13:28 Dose: 2 mg Documented by: Multivitamins (Multivitamin) 1 tablet PO DAILY@0800 COUNTS INCLUDE 234 BEDS AT THE [facility] Last Admin: 04/17/19 08:05 Dose: 1 tablet Documented by: Nitroglycerin (Nitrostat) 0.4 mg SUBLINGUAL Q5M PRN PRN Reason: CARDIAC/CHEST PAIN Ondansetron HCl (Zofran) 4 mg IV Q8H PRN PRN PRN Reason: NAUSEA/VOMITING Pantoprazole Sodium (Protonix) 20 mg PO DAILY COUNTS INCLUDE 234 BEDS AT THE [facility] Last Admin: 04/17/19 10:16 Dose: 20 mg Documented by: Potassium Chloride (K-Dur) 40 meq PO BIDCM COUNTS INCLUDE 234 BEDS AT THE [facility] Last Admin: 04/17/19 08:05 Dose: 40 meq Documented by: Prednisone () 30 mg PO DAILY@0800 COUNTS INCLUDE 234 BEDS AT THE [facility] Pregabalin (Lyrica) 50 mg PO TID COUNTS INCLUDE 234 BEDS AT THE [facility] Last Admin: 04/17/19 13:27 Dose: 50 mg Documented by: Psyllium Hydrophilic Mucilloid (Metamucil) 1 packet PO DAILY PRN PRN PRN Reason: Constipation Sertraline HCl (Zoloft) 200 mg PO QHS COUNTS INCLUDE 234 BEDS AT THE [facility] Last Admin: 04/16/19 23:21 Dose: 200 mg Documented by: Sodium Chloride () 10 - 40 ml IV UD PRN PRN Reason: SALINE FLUSH Last Admin: 04/17/19 13:29 Dose: 10 ml Documented by: Sucralfate (Carafate) 1 gm PO 1HR_ACHS COUNTS INCLUDE 234 BEDS AT THE [facility] Last Admin: 04/17/19 10:17 Dose: 1 gm Documented by: Tolterodine Tartrate (Detrol La) 4 mg PO DAILY COUNTS INCLUDE 234 BEDS AT THE [facility] Last Admin: 04/17/19 10:16 Dose: 4 mg Documented by: Trazodone HCl (Desyrel) 150 mg PO QHS COUNTS INCLUDE 234 BEDS AT THE [facility] Last Admin: 04/16/19 23:18 Dose: 150 mg Documented by: Medical Necessity - Tobacco Use Smoking Status: Former smoker Tobacco Use: Cigarettes Assessment/Plan All Active Problems (Last Reviewed 11/07/18 @ 10:48 by Trevon Garsia MD) Gout of left foot (Acute) Pain in left ankle and joints of left foot (Acute) Right foot pain (Acute) Right-sided heart failure (Acute) Cervicalgia (Resolved) Chest pain (Resolved) Diarrhea (Resolved) Gastroenteritis (Resolved) H/O hemorrhoidectomy (Resolved) History of tonsillectomy (Resolved) Hyperglycemia (Resolved) Hypokalemia (Resolved) Recent urinary tract infection (Resolved) S/P wrist surgery (Resolved) Gout left subtalar joint --continued improvement Left lower extremity pain Edema -improving Diabetes Gait impairment Reviewed and discussed her case. Her vitals remained stable. She continues on temporary prednisone for treatment of her acute gout. She will be progressed to allopurinol once her acute gout flare up is completed. She is demonstrating improvement again today with pain reduction and ability to move her lower extremity better. A walking boot was ordered for her previously and she will be able to get this dispensed when she is transitioned to another facility. To weight-bear as tolerated. It is okay to get transferred over at this time from a podiatry standpoint and we are likely waiting on the insurance prior authorization. I recommend she use an assistive device if needed. To continue Nish wrap and limb elevation. I will continue to follow her when she is transferred within the next two weeks. Please not hesitate to call if you have any questions. Lou Gee DPM, [facility] [phone]
[2019-04-17 17:11] LABS: Bedside Glucose 411 mg/dL (70-110)
--- NOTE | 2019-04-17 17:33 | PCM.EXTCARCO ---
- Diet 04/13/19 17:55 Diet: Cardiac: Calorie-Controlled Food consistency:: Regular Liquid Consistency:: Regular/Thin Type of Dietary Supplement:: Glucerna Shake Diet Comments: 120mL Glucerna w/ meals How many daily calories?: 1800 calorie - Routine Orders/Code Status Suppository Type: Dulcolax 10mg Suppository Frequency: Daily PRN O2 Frequency: Continuous Routine Lab Work: CBC - 5 days, BMP - 3 days Code Status: Full Code - Wound(s) lt ankle Wound Type: Puncture - Therapies Physical Therapy: Eval and Treat Occupational Therapy: Eval and Treat - Allergies/Procedures Done in Hospital Allergies/Adverse Reactions: Allergies adhesive Allergy (Verified 04/13/19 14:01) Itching adhesive tape Allergy (Verified 04/13/19 14:01) Rash amoxicillin trihydrate [From Augmentin] Allergy (Verified 04/13/19 14:01) Hives Iodinated Contrast Media [Iodinated Contrast- Oral and IV Dye] Allergy (Verified 04/13/19 18:11) Anaphylaxis latex Allergy (Verified 04/13/19 14:01) Rash Latex, Natural Rubber Allergy (Verified 04/13/19 14:01) Rash metronidazole [From Flagyl] Allergy (Verified 04/13/19 14:01) Hives Metronidazole HCl [From Flagyl] Allergy (Verified 04/13/19 14:01) Hives Penicillins [PCN] Allergy (Verified 04/13/19 14:01) Hives potassium clavulanate [From Augmentin] Allergy (Verified 04/13/19 14:01) Hives sulfamethoxazole [From Bactrim] Allergy (Verified 04/13/19 14:01) Hives hives trimethoprim [From Bactrim] Allergy (Verified 04/13/19 14:01) Hives hives diphenhydramine HCl [From Benadryl] Adverse Reaction (Verified 04/13/19 18:11) i could crawl to the ceiling/diaphoresis/tremor i could crawl the ceiling omeprazole Adverse Reaction (Verified 04/13/19 14:01) Nausea promethazine HCl [From Phenergan] Adverse Reaction (Verified 04/13/19 14:01) Nausea antihistamine Allergy (Uncoded 04/13/19 18:11) i could crawl to the ceiling/sleepy/disoriented crawl the ceiling - Type of Care/Length of Stay Estimated LOS: Convalescent Care Less Than 30 days Type of Care Needed: Skilled Rehab Potential: Fair Prognosis: Fair - Additional Orders/Day of Discharge Day of Discharge: 04/17/19 - Dietary and Speech Recommendations Dietitian Recommendations/Changes: Continue cardiac, 1800 calorie controlled diet. Will discontinue Ensure w/ medpass and provide Glucerna w/ meals. - Follow Up Care Primary Care Physician: Zabrina Bain MD [Primary Care Provider] - 3-5 Days Please Follow Up With: Lou Gee DPM When: 2 weeks
--- NOTE | 2019-04-17 17:37 | PCM.DC.SUM ---
<Angel Emerson - Last Filed: 04/17/19 17:37> Discharge Date and Diagnosis Date of Admission: 04/13/19 Date of Discharge: 04/17/19 - Primary Discharge Diagnosis Active and Suspected Problems (Last Reviewed 11/07/18 @ 10:48 by Trevon Garsia MD) Gout of left foot (Acute) Debility with difficulty ambulating 2/2 above Chronic hypoxic respiratory failure 2/2 severe COPD hypokalemia resolved Chronic diastolic CHF Hypothyroidism Depression/Anxiety T2DM with morbid obesity SCOTTY HLD GERD Hx NHL - Secondary Discharge Diagnosis Chronic Problems (Last Reviewed 11/07/18 @ 10:48 by Trevon Garsia MD) Spondylosis of lumbosacral region without myelopathy or radiculopathy (Chronic) Edema of left lower extremity (Chronic) Acute diastolic CHF (congestive heart failure) (Chronic) Secondary pulmonary arterial hypertension (Chronic) Essential (primary) hypertension (Chronic) Obstructive sleep apnea (Chronic) Chronic obstructive pulmonary disease (Chronic) Nonrheumatic aortic valve stenosis (Chronic) Hyperlipidemia (Chronic) Hospital Course and Treatment Imaging Results: Venous duplex: Interpretation Summary There is no evidence of left lower extremity deep vein thrombosis. Left great saphenous vein appears patent and compressible segmentally. The left common femoral vein and saphenofemoral junction was not able to visualize secondary to body habitus RAD/Foot min 3 Views IMPRESSION: Normal x-ray examination of the foot. RAD/Ankle min 3 Views IMPRESSION: Soft tissue swelling essentially unchanged from the previous study. There is no fracture or dislocation. RAD/Foot min 3 Views IMPRESSION: Small calcaneal spur. Diffuse soft tissue swelling. Consults: Fascione - podiatry Operations: None Procedures: None Summary of Care Provided: Hospital Course: The patient is a 73 year old F with pmhx of gout, diastolic CHF, COPD with chronic hypoxic respiratory failure on trilogy qhs, hypothyroidism, T2DM with morbid obesity, HLD, GERD , NHL in remission who presented to the ER with left foot swelling and pain. She had recently had gout in the right foot. She was felt to have gout of the left foot. She was started on colchicine and alloprinol and podiatry was consulted. Uric acid was elevated. Colchicine and allopurinol were changed to prednisone. The joint was aspirated and had no growth. She had difficulty weight bearing and walking due to severe pain, and generalized debility. She otherwise lives alone and was felt to be unsafe to go home at this point. She was agreeable to senior living. She was transitioned to a prednisone taper and discharged to SNF in stable condition. She will need to continue to weight bear as tolerated with a walking boot, and to conitnue Nish wraps and elevation. She will likely need transitioned to allopurinol after her acute flare has resolved. She will need close monitoring of her blood sugars as we have adjusted her insulins while here, and she will be going on higher doses with tapering doses of prednisone and may need further adjustments. She will need to follow up with her PCP in 1-2 weeks, and with podiatry in 2 weeks. THis patient was seen by Angel Emerson PA-C under the supervision of Dr. Wharton. [] - Physical Exam Vitals/I&O's: Vital Signs Temp Pulse Resp BP Pulse Ox 97.7 F L 83 18 130/75 H 94 04/17/19 16:13 04/17/19 16:13 04/17/19 16:13 04/17/19 16:13 04/17/19 16:13 Oxygen Flow Rate (L/min) 4 Oxygen Delivery Method Nasal Cannula Weight: 241 lb 10.026 oz Body Mass Index (BMI) 45.1 Finger Stick Blood Glucose 204 Intake and Output for Last 24 Hours 04/15/19 04/16/19 04/17/19 23:59 23:59 23:59 Intake Total 1680 / 1680 1380 / 1380 300 / 300 Output Total 1875 / 1875 1700 / 1700 1999 Balance -195 / -195 -320 / -320 -1700 / -1700 General: Alert, Oriented x3, Cooperative HEENT: Atraumatic, PERRLA, EOMI, Normocephalic Neck: Supple, No JVD, Negative Carotid Bruits Lungs: Clear to auscultation, Normal air movement Cardiovascular: Regular rate, No murmurs Abdomen: Bowel Sounds Present, Soft, Non Tender Extremities: No edema, Capillary Refill Less than 3 Seconds Skin: No rashes, No breakdown Musculoskeletal: No Tenderness to Palpation of Joints or Extremities Neurological: Cranial nerves II-XII grossly intact Psych/Mental Status: Normal Affect, Appropriate, Alert and oriented to time, place, person, mood and affect Microbiology Past 72 Hours 04/14/19 07:05 Fluid - Synovial (joint) Gram Stain - Final 04/14/19 07:05 Fluid - Synovial (joint) Body Fluid Culture - Preliminary No growth-Final to follow 04/14/19 07:05 Fluid - Synovial (joint) Anaerobic Culture - Preliminary No growth in 48 hours. Laboratory Results 04/16/19 23:15: POC Glucose 221 H 04/17/19 04:50: Sodium 137, Potassium 4.0, Chloride 94 L, Carbon Dioxide 40.0 H, Anion Gap 3 L, BUN 33 H, Creatinine 0.90, Estim Creat Clear Calc 42.64, Est GFR (MDRD) Af Amer 80, Est GFR (MDRD) Non-Af 66, BUN/Creatinine Ratio 36.9 H, Glucose 190 H, Calcium 9.9 04/17/19 04:50: Total Bilirubin 0.50, Direct Bilirubin 0.15, AST 56 H, ALT 64 H, Alkaline Phosphatase 119 H, Total Protein 7.6, Albumin 2.9 L, Globulin 4.7 H 04/17/19 04:50: B-Natriuretic Peptide 177.1 H 04/17/19 08:04: POC Glucose 243 H 04/17/19 10:59: POC Glucose 301 H 04/17/19 16:32: POC Glucose 411 H Current Medications Acetaminophen (Tylenol) 650 mg PO Q6H PRN PRN PRN Reason: Pain Score 1-10/Temp > 100.7 F Last Admin: 04/16/19 23:25 Dose: 650 mg Documented by: Al Hydroxide/Mg Hydroxide (Mylanta Ii) 30 ml PO Q6H PRN PRN PRN Reason: Gastric Burning Last Admin: 04/16/19 10:40 Dose: 30 ml Documented by: Albuterol Sulfate (Ventolin Aerosols) 2.5 mg INHALATION Q2H PRN PRN PRN Reason: SHORTNESS OF BREATH Last Admin: 04/15/19 08:49 Dose: 2.5 mg Documented by: Albuterol/Ipratropium (Duoneb) 3 ml INHALATION Q4HWA.RT DANIELLE Last Admin: 04/17/19 14:40 Dose: 3 ml Documented by: Atorvastatin Calcium (Lipitor) 40 mg PO QHS DANIELLE Last Admin: 04/16/19 23:20 Dose: 40 mg Documented by: Buspirone HCl (Buspar) 15 mg PO BID [facility] Last Admin: 04/17/19 10:16 Dose: 15 mg Documented by: Dicyclomine HCl (Bentyl) 10 mg PO ACHS [facility] Last Admin: 04/17/19 16:37 Dose: 10 mg Documented by: Fluticasone Propionate (Flonase Nasal [place]) 2 spray NASAL QHS [facility] Last Admin: 04/16/19 23:18 Dose: 2 spray Documented by: Furosemide (Lasix) 80 mg PO BID [facility] Last Admin: 04/17/19 10:14 Dose: 80 mg Documented by: Glucagon () 1 mg IM .X1 PRN PRN Reason: Hypoglycemia Heparin Sodium (Porcine) (Heparin Na) 5,000 unit SC Q8 [facility] Last Admin: 04/17/19 13:28 Dose: 5,000 unit Documented by: Dextrose (Dextrose 10%-Water) 250 mls @ 999 mls/hr IV .Q16M PRN; Protocol PRN Reason: HYPOGLYCEMIA Insulin Glargine (Lantus (Bkc)) 40 units SC BID [facility] Insulin Human Lispro (Humalog Kwikpen (Bkc)) 0 unit SC [facility]; Protocol Last Admin: 04/17/19 16:36 Dose: 16 units Documented by: Insulin Human Lispro (Humalog Kwikpen (Bkc)) 15 unit SC TIDCM [facility] Last Admin: 04/17/19 16:36 Dose: 15 unit Documented by: Levothyroxine Sodium (Synthroid) 25 mcg PO DAILY@0600 [facility] Last Admin: 04/17/19 05:27 Dose: 25 mcg Documented by: Lisinopril (Zestril) 5 mg PO DAILY [facility] Last Admin: 04/17/19 10:16 Dose: 5 mg Documented by: Magnesium Oxide (Mag-Ox 400) 400 mg PO BID [facility] Last Admin: 04/17/19 10:15 Dose: 400 mg Documented by: Metoclopramide HCl (Metoclopramide Hcl) 5 mg PO TIDAC [facility] Last Admin: 04/17/19 16:38 Dose: 5 mg Documented by: Metolazone (Zaroxolyn) 5 mg PO DAILY [facility] Last Admin: 04/17/19 10:16 Dose: 5 mg Documented by: Metoprolol Succinate (Toprol Xl (Beta Gisel)) 50 mg PO BID [facility] Last Admin: 04/17/19 10:16 Dose: 50 mg Documented by: Mirabegron (Myrbetriq) 25 mg PO DAILY [facility] Last Admin: 04/17/19 10:16 Dose: 25 mg Documented by: Montelukast Sodium (Singulair) 10 mg PO QHS [facility] Last Admin: 04/16/19 23:21 Dose: 10 mg Documented by: Morphine Sulfate () 1 - 2 mg IV Q3H PRN PRN PRN Reason: Pain Score 1-10/10 Last Admin: 04/17/19 13:28 Dose: 2 mg Documented by: Multivitamins (Multivitamin) 1 tablet PO DAILY@0800 [facility] Last Admin: 04/17/19 08:05 Dose: 1 tablet Documented by: Nitroglycerin (Nitrostat) 0.4 mg SUBLINGUAL Q5M PRN PRN Reason: CARDIAC/CHEST PAIN Ondansetron HCl (Zofran) 4 mg IV Q8H PRN PRN PRN Reason: NAUSEA/VOMITING Pantoprazole Sodium (Protonix) 20 mg PO DAILY [facility] Last Admin: 04/17/19 10:16 Dose: 20 mg Documented by: Potassium Chloride (K-Dur) 40 meq PO BIDCOX BRANSON Last Admin: 04/17/19 16:38 Dose: 40 meq Documented by: Prednisone () 30 mg PO DAILY@0800 [facility] Pregabalin (Lyrica) 50 mg PO TID [facility] Last Admin: 04/17/19 13:27 Dose: 50 mg Documented by: Psyllium Hydrophilic Mucilloid (Metamucil) 1 packet PO DAILY PRN PRN PRN Reason: Constipation Sertraline HCl (Zoloft) 200 mg PO QHS [facility] Last Admin: 04/16/19 23:21 Dose: 200 mg Documented by: Sodium Chloride () 10 - 40 ml IV UD PRN PRN Reason: SALINE FLUSH Last Admin: 04/17/19 13:29 Dose: 10 ml Documented by: Sucralfate (Carafate) 1 gm PO 1HR_ACHS [facility] Last Admin: 04/17/19 16:37 Dose: 1 gm Documented by: Tolterodine Tartrate (Detrol La) 4 mg PO DAILY [facility] Last Admin: 04/17/19 10:16 Dose: 4 mg Documented by: Trazodone HCl (Desyrel) 150 mg PO QHS [facility] Last Admin: 04/16/19 23:18 Dose: 150 mg Documented by: Discharge Diet: Low fat/ Low Cholesterol, 1800 Calorie Control Diet, 2000 mg Sodium Diet Discharge Activity: Return to Normal Activity Home Medications: Medications to take at Discharge Albuterol Inhaler [Ventolin Hfa] 2 puff INHALATION Q6H PRN PRN 06/29/14 Levothyroxine [Synthroid] 25 mcg PO DAILY 06/29/14 Montelukast [Singulair] 10 mg PO QHS 06/29/14 Sertraline HCl [Zoloft] 200 mg PO QHS 06/29/14 Atorvastatin Calcium [Lipitor] 40 mg PO QHS 09/18/15 Fluticasone 0.05% [Flonase Nasal [place]] 2 spray NASAL QHS 09/18/15 Pregabalin [Lyrica] 50 mg PO TID 09/18/15 traZODone [Desyrel] 150 mg PO QHS 11/26/16 Multivitamin [Multiple Vitamins] 1 tab PO DAILY 10/11/17 Insulin Lispro [Humalog KwikPen] 12 unit SQ TIDCM 11/18/17 Magnesium Oxide [Magnesium] 400 mg PO DAILY 11/18/17 busPIRone [Buspar] 15 mg PO BID 07/29/18 Fluticasone/Umeclidin/Vilanter [Trelegy Ellipta 100-62.5-25] 1 puff INHALATION DAILY 09/15/18 Furosemide 80 mg PO BID 09/15/18 Metoprolol Succinate 50 mg PO BID 09/15/18 Dicyclomine HCl [Bentyl] 10 mg PO ACHS 04/13/19 Lisinopril [Zestril] 5 mg PO DAILY 04/13/19 Metoclopramide HCl [Reglan] 5 mg PO TID 04/13/19 Metolazone [Zaroxolyn] 5 mg PO DAILY 04/13/19 Mirabegron [Myrbetriq] 25 mg PO DAILY 04/13/19 Oxybutynin Chloride [Oxybutynin Chloride ER] 15 mg PO DAILY 04/13/19 Rabeprazole Sodium [Aciphex] 20 mg PO DAILY 04/13/19 Sucralfate [Carafate] 1 gm PO 1HR_ACHS 04/13/19 Acetaminophen [Tylenol Tablet] 650 mg PO Q6H PRN PRN tab 04/17/19 Albuterol Aerosols [Ventolin Aerosols] 2.5 mg INHALATION Q2H PRN PRN vial.neb. 04/17/19 Insulin Glargine [Lantus SoloStar Pen] 40 units SUBCUT BID pen 04/17/19 Insulin Lispro [Humalog KwikPen] See Protocol SUBCUT ACHS insuln.pen 04/17/19 Ipratropium/Albuterol Sulfate [Duoneb] 3 ml INHALATION Q4HWA.RT ampul.neb 04/17/19 Mag Hydrox/Al Hydrox/Simeth [Mylanta II] 30 ml PO Q6H PRN PRN udc 04/17/19 Oxycodone [Oxyir] 5 mg PO Q6H PRN PRN 3 Days #12 tab 04/17/19 Potassium Chloride [K-Dur] 40 meq PO BIDCM tab 04/17/19 Prednisone 10 mg PO UD #18 tab 04/17/19 Psyllium [Metamucil] 1 packet PO DAILY PRN PRN packet 04/17/19 Following Prescrptions Were Given to Patient: Oxycodone [Oxyir] 5 mg PO Q6H PRN PRN 3 Days #12 tab PRN Reason: Pain Score 6-10/10 Prescription Printed Prednisone 10 mg PO UD #18 tab Primary Care Physician: Zabrina Bain MD [Primary Care Provider] - 3-5 Days Please Follow Up With: Lou Gee DPM When: 2 weeks Disposition: Detention facility Minutes spent on discharge:: 40 Patient Condition:: Stable Medical Necessity - Tobacco Use Smoking Status: Former smoker Tobacco Use: Cigarettes Meaningful Use Info Meaningful Use Diagnoses (Choose all that apply): None applicable <DioWaverly - Last Filed: 04/18/19 16:45> Discharge Date and Diagnosis - Secondary Discharge Diagnosis Chronic Problems (Last Reviewed 11/07/18 @ 10:48 by Trevon Garsia MD) Spondylosis of lumbosacral region without myelopathy or radiculopathy (Chronic) Edema of left lower extremity (Chronic) Acute diastolic CHF (congestive heart failure) (Chronic) Secondary pulmonary arterial hypertension (Chronic) Essential (primary) hypertension (Chronic) Obstructive sleep apnea (Chronic) Chronic obstructive pulmonary disease (Chronic) Nonrheumatic aortic valve stenosis (Chronic) Hyperlipidemia (Chronic) Hospital Course and Treatment Summary of Care Provided: This patient was seen in conjunction with MADAN Shaver. I have independently interviewed and examined the patient and reviewed pertinent historical, laboratory, and other data. Please refer to MADAN Shaver note for his patient's presentation, findings, and recommendations. I have reviewed and his note and concur with his documentation 74-year-old female with past medical history of diastolic CHF, COPD on chronic 3 L of oxygen, on trilogy at night, type II DM, morbid obesity who comes in with complaints of left fo left ankle was aspirated. ot swelling and pain. Patient was diagnosed with acute gout and initially managed on colchicine and allopurinol and later switched to prednisone. Her left ankle was aspirated, no growth seen from cultures. She was evaluated by PT and OT and discharge to subacute rehab. Her insulin doses were adjusted was in the hospital Physical Exam: Gen: Looks in some discomfort, not pale, not jaundiced, morbidly obese CVS:HS I +II, regular, no murmurs RESP: Diminished at lung bases GI: BS present and normal, soft, nontender, no palpable organs EXT:No edema, Nish wrap to the left lower leg ASSESSMENT: 1. Acute gout, left ankle 2. Hypokalemia 3. Chronic diastolic CHF 4. Hypothyroidism 5. Anxiety/depression 6. Type II DM 7. Morbid Obesity - Physical Exam Vitals/I&O's: Vital Signs Temp Pulse Resp BP Pulse Ox 97.7 F L 82 20 H 145/78 H 94 04/17/19 18:27 04/17/19 19:00 04/17/19 19:00 04/17/19 18:27 04/17/19 18:27 Oxygen Flow Rate (L/min) 4 Oxygen Delivery Method Nasal Cannula Weight: 109.6 kg Body Mass Index (BMI) 45.1 Finger Stick Blood Glucose 204 Intake and Output for Last 24 Hours 04/16/19 04/17/19 04/18/19 23:59 23:59 23:59 Intake Total 1380 / 1380 300 / 300 Output Total 1700 / 1700 2500 / 2500 Balance -320 / -320 -2200 / -2200 Microbiology Past 72 Hours 04/14/19 07:05 Fluid - Synovial (joint) Gram Stain - Final 04/14/19 07:05 Fluid - Synovial (joint) Body Fluid Culture - Preliminary No growth-Final to follow 04/14/19 07:05 Fluid - Synovial (joint) Anaerobic Culture - Preliminary No growth in 48 hours. Laboratory Results 04/17/19 16:32: POC Glucose 411 H Code Visit Inpatient E&M: 63809 Disch Hosp
--- NOTE | 2019-04-17 17:56 | NURSING ---
This RN called report to RONAN Sepulveda at [facility].
== END 2019-04-17 19:54 | disposition skilled nursing facility (03) | DRG 554 ==
LOC: ED 16:42 → PCU 17:11
PROVIDERS: Family Medicine; Nurse Practitioner Family; Physician Assistant; Admitting Provider Internal Medicine; Emergency Provider Emergency Medicine; PCP Internal Medicine; Visit Provider Internal Medicine
DX: M10.9 Gout, unspecified (principal); J96.11 Chronic respiratory failure with hypoxia; Z68.42 Body mass index [BMI] 45.0-49.9, adult; I50.32 Chronic diastolic (congestive) heart failure; C85.90 Non-Hodgkin lymphoma, unspecified, unspecified site; Z99.81 Dependence on supplemental oxygen; E87.6 Hypokalemia; K58.0 Irritable bowel syndrome with diarrhea; J44.9 Chronic obstructive pulmonary disease, unspecified; E03.9 Hypothyroidism, unspecified; G47.33 Obstructive sleep apnea (adult) (pediatric); N32.81 Overactive bladder; I11.0 Hypertensive heart disease with heart failure; E78.5 Hyperlipidemia, unspecified; K21.9 Gastro-esophageal reflux disease without esophagitis; R53.81 Other malaise; E66.01 Morbid (severe) obesity due to excess calories; F32.9 Major depressive disorder, single episode, unspecified; F41.9 Anxiety disorder, unspecified; I35.0 Nonrheumatic aortic (valve) stenosis; Z79.4 Long term (current) use of insulin; Z87.891 Personal history of nicotine dependence
CPT/HCPCS: 73610; 73630; 80048; 80076; 82962; 83735; 83880; 84100; 84550; 85025; 85027; 87070; 87075; 87205; 87633; 89060; 93971; 94002; 94003; 94640; 97110; 97116; 97163; 97166; 97530; 97535; 97802; 99251; 99285; J7030; A4216; G0463

== ENCOUNTER 2019-10-05 07:39 | Outpatient (RCR) | payer MEDICARE, MEDICAID, SELFPAY ==
[2019-05-07 13:14] VITALS: BMI 45.1
[2019-10-05 14:28] VITALS: BP 133/58; PULSE 84; RESP 22; TEMP 36.8; BMI 44.4
--- NOTE | 2019-10-05 16:07 | PCM.WC.HP ---
(1) Excoriation Status: Chronic Code(s): T14.8XXA - Other injury of unspecified body region, initial encounter (2) Skin abrasion Status: Chronic Code(s): T14.8XXA - Other injury of unspecified body region, initial encounter (3) Right buttock pain Status: Chronic Code(s): M79.18 - Myalgia, other site (4) Chronic obstructive pulmonary disease Status: Chronic Code(s): J44.9 - Chronic obstructive pulmonary disease, unspecified (5) On home oxygen therapy Status: Chronic Code(s): Z99.81 - Dependence on supplemental oxygen (6) Essential (primary) hypertension Status: Chronic Code(s): I10 - Essential (primary) hypertension History of Present Illness Date of Service: 10/05/19 Chief Complaint: Sore on right buttock that opens and closes. Will sometimes drain. Is painful. History of Wound: Patient has an area on her right buttock, near the anal opening that becomes sore, painful to touch. It sometimes drains. It comes and goes. She sits on a donut pillow sometimes, but she is not sure it helps with the sore. She has a history of COPD and is on home oxygen, hx of CHF. She states she has tried different creams and ointments with no success. Today she denies fever. She states her appetite is ok. Past Medical History Past Medical History: Chronic Problems (Last Reviewed 05/07/19 @ 13:41 by MADAN Reyes) Spondylosis of lumbosacral region without myelopathy or radiculopathy (Chronic) Edema of left lower extremity (Chronic) Excoriation (Chronic) Skin abrasion (Chronic) Right buttock pain (Chronic) On home oxygen therapy (Chronic) Acute diastolic CHF (congestive heart failure) (Chronic) Secondary pulmonary arterial hypertension (Chronic) Essential (primary) hypertension (Chronic) Obstructive sleep apnea (Chronic) Chronic obstructive pulmonary disease (Chronic) Nonrheumatic aortic valve stenosis (Chronic) Hyperlipidemia (Chronic) Surgical History: adenoidectomy, tonsillectomy, - - Right breast hematoma removal, Left breast lumps removal, Right chest port, R Wrist surery, hemorrhoidectomy. Allergies/Adverse Reactions: Allergies adhesive Allergy (Verified 04/13/19 14:01) Itching adhesive tape Allergy (Verified 04/13/19 14:01) Rash amoxicillin trihydrate [From Augmentin] Allergy (Verified 04/13/19 14:01) Hives Iodinated Contrast Media [Iodinated Contrast- Oral and IV Dye] Allergy (Verified 04/13/19 18:11) Anaphylaxis latex Allergy (Verified 04/13/19 14:01) Rash Latex, Natural Rubber Allergy (Verified 04/13/19 14:01) Rash metronidazole [From Flagyl] Allergy (Verified 04/13/19 14:01) Hives Metronidazole HCl [From Flagyl] Allergy (Verified 04/13/19 14:01) Hives Penicillins [PCN] Allergy (Verified 04/13/19 14:01) Hives potassium clavulanate [From Augmentin] Allergy (Verified 04/13/19 14:01) Hives sulfamethoxazole [From Bactrim] Allergy (Verified 04/13/19 14:01) Hives hives trimethoprim [From Bactrim] Allergy (Verified 04/13/19 14:01) Hives hives diphenhydramine HCl [From Benadryl] Adverse Reaction (Verified 04/13/19 18:11) i could crawl to the ceiling/diaphoresis/tremor i could crawl the ceiling omeprazole Adverse Reaction (Verified 04/13/19 14:01) Nausea promethazine HCl [From Phenergan] Adverse Reaction (Verified 04/13/19 14:01) Nausea antihistamine Allergy (Uncoded 04/13/19 18:11) i could crawl to the ceiling/sleepy/disoriented crawl the ceiling Home Medications: Ambulatory Orders Medication Instructions Recorded Albuterol Inhaler [Ventolin Hfa] 2 puff INHALATION Q6H PRN PRN 06/29/14 Levothyroxine [Synthroid] 25 mcg PO DAILY 06/29/14 Montelukast [Singulair] 10 mg PO QHS 06/29/14 Sertraline HCl [Zoloft] 200 mg PO QHS 06/29/14 Atorvastatin Calcium [Lipitor] 40 mg PO QHS 09/18/15 Fluticasone 0.05% [Flonase Nasal 2 spray NASAL QHS 09/18/15 [place]] Pregabalin [Lyrica] 50 mg PO TID 09/18/15 traZODone [Desyrel] 150 mg PO QHS 11/26/16 Multivitamin [Multiple Vitamins] 1 tab PO DAILY 10/11/17 Insulin Lispro [Humalog KwikPen] 12 unit SQ TIDCM 11/18/17 Magnesium Oxide [Magnesium] 400 mg PO DAILY 11/18/17 busPIRone [Buspar] 15 mg PO BID 07/29/18 Fluticasone/Umeclidin/Vilanter 1 puff INHALATION DAILY 09/15/18 [Trelegy Ellipta 100-62.5-25] Furosemide 80 mg PO BID 09/15/18 Metoprolol Succinate 50 mg PO BID 09/15/18 Dicyclomine HCl [Bentyl] 10 mg PO ACHS 04/13/19 Lisinopril [Zestril] 5 mg PO DAILY 04/13/19 Metoclopramide HCl [Reglan] 5 mg PO TID 04/13/19 Metolazone [Zaroxolyn] 5 mg PO DAILY 04/13/19 Mirabegron [Myrbetriq] 25 mg PO DAILY 04/13/19 Oxybutynin Chloride [Oxybutynin 15 mg PO DAILY 04/13/19 Chloride ER] Rabeprazole Sodium [Aciphex] 20 mg PO DAILY 04/13/19 Sucralfate [Carafate] 1 gm PO 1HR_ACHS 04/13/19 Acetaminophen [Tylenol Tablet] 650 mg PO Q6H PRN PRN tab 04/17/19 Albuterol Aerosols [Ventolin 2.5 mg INHALATION Q2H PRN PRN 04/17/19 Aerosols] vial.neb. Insulin Glargine [Lantus SoloStar 40 units SUBCUT BID pen 04/17/19 Pen] Insulin Lispro [Humalog KwikPen] See Protocol SUBCUT ACHS 04/17/19 insuln.pen Ipratropium/Albuterol Sulfate 3 ml INHALATION Q4HWA.RT ampul.neb 04/17/19 [Duoneb] Potassium Chloride [K-Dur] 40 meq PO BIDCM tab 04/17/19 Psyllium [Metamucil] 1 packet PO DAILY PRN PRN packet 04/17/19 - Family History Offspring Family History: Family History (Last Reviewed 05/07/19 @ 13:41 by MADAN Reyes) Brother CAD (coronary artery disease) CVA (cerebral vascular accident) Brother Sudden cardiac Brother CAD (coronary artery disease) Mother Heart disease Father Brain aneurysm Cancer, Diabetes, Hypertension Maternal Family History: Family History (Last Reviewed 05/07/19 @ 13:41 by MADAN Reyes) Brother CAD (coronary artery disease) CVA (cerebral vascular accident) Brother Sudden cardiac Brother CAD (coronary artery disease) Mother Heart disease Father Brain aneurysm - Sibling Family History: Family History (Last Reviewed 05/07/19 @ 13:41 by MADAN Reyes) Brother CAD (coronary artery disease) CVA (cerebral vascular accident) Brother Sudden cardiac Brother CAD (coronary artery disease) Mother Heart disease Father Brain aneurysm - Smoking Status: Former smoker Review of Systems Constitutional: Denies: Chills, Fever, Weight Change Eyes: Denies: Pain, Vision Change HEENT: Denies: Difficulty Hearing, Difficulty Swallowing, Sinus Congestion Cardiovascular: Denies: Chest Pain, Palpitations Respiratory: Reports: Shortness of Breath - She is on O2 all the time. Genitourinary: Denies: Dysuria, Hematuria Skin: Reports: Wounds - she has a sore that comes and goes on her right buttock near the anal opening Neurological: Denies: Double vision, Change in Speech, Confusion Psychiatric: Denies: Homicidal Ideations, Suicidal Ideations - Physical Exam Vital Signs Temp Pulse Resp BP 98.2 F 84 22 H 133/58 H 10/05/19 14:28 10/05/19 14:28 10/05/19 14:28 10/05/19 14:28 General: Alert, Cooperative HEENT: Atraumatic Oral: Moist Mucosa Lungs: Clear to auscultation, Normal air movement Cardiovascular: Regular rate, Regular Rhythm Abdomen: Bowel Sounds Present, Soft Extremities: Capillary Refill Less than 3 Seconds Skin: Excoriated - She has a small raised, excoiated, pink area on her right buttock near the anal opening. It is approximately 3.4 mm diameter. It is tender to palpation. It is dry and intact and no drainage is present at this time. She has some pink excoriation along her hazel cleft where the skin rubs together and is moist. Wound Measurements and Assessment WC - Nurse 1 - General Ulcer Measurement Start: 10/05/19 08:12 Freq: Status: Active Protocol: Activity Type Activity Date Activity User E-Sign Co-Sign Detail Recorded Client Recorded Date Recorded By Document 10/05/19 14:28 NAHID [id number] 10/05/19 14:51 DL 10/05/19 14:28 Wound Center Nurse 1 [Ulcer Assessment] #1 R Buttocks -Current Size (cm) - Length 0.1 -Current Size (cm) - Width 0.1 -Current Size (cm) - Depth 0.1 -Total Square Cm 0.01 -Photo Taken Yes -Exudate Amt None Present -Wound Margin Flat & Intact -Granulation Amt Large (67-100%) -Granulation Quality [place] -Necrosis Amt None Present (0 %) -Texture (Josephine-wound Skin Appearance) No Abnormality -Moisture (Josephine-wound Skin Appearance No Abnormality ) -Color (Josephine-wound Skin Appearance) Erythema -Temperature (Josephine-wound Skin No Abnormality Appearance) (Pt Warm) -Tenderness on Palpation (Josephine-wound Yes Skin Appearance) -Ulcer Cleansing Rinsed/ Irrigated with Saline -Foul Odor after Cleansing No WC - Nurse 2 - General Ulcer CM Notes Start: 10/05/19 08:12 Freq: Status: Active Protocol: Activity Type Activity Date Activity User E-Sign Co-Sign Detail Recorded Client Recorded Date Recorded By Document 10/05/19 15:18 IRVING [id number] 10/05/19 15:20 IRVING 10/05/19 15:18 Pain Scale: 0-10 Numeric [Pain] -Is Patient Pain Free? Yes Musculoskeletal: No Tenderness to Palpation of Joints or Extremities Neurological: Cranial nerves II-XII grossly intact Psych/Mental Status: Normal Affect, Appropriate Debridement Note Post-Debridement Measurements/Treatment WC - Nurse 2 - General Ulcer CM Notes Start: 10/05/19 08:12 Freq: Status: Active Protocol: Activity Type Activity Date Activity User E-Sign Co-Sign Detail Recorded Client Recorded Date Recorded By Document 10/05/19 15:18 IRVING [id number] 10/05/19 15:20 10/05/19 15:18 Pain Scale: 0-10 Numeric Is Patient Pain Free? Yes No debridement was completed today Assessment/Plan Assessment: 1. Excoration of right buttock. 2. Skin abrasion. 3. Right buttock pain. 4. COPD. 5. Home oxygen therapy. 6. HTN Plan: Patient has a small area that is tender to palpation. Currently has no opening in the skin. There is also some pink irritation to the hazel cleft where there is moisture and skin rubbing. Wound care: Recommend using a barrier cream such as A&D ointment, Calmaceptin cream or Bouddreaux's Butt paste 1-2 times per day. Instructed her to wash the area daily with soap and water and dry it well. Then apply the ointment/cream after that. Encouraged her to stop using the donut pillow, I believe it may be placing uneccesary pressure on the area that is causing her discomfort. Follow up in 2 weeks to re-evaluate if the ointment/cream is working for her. Office Visits / Consults: [id number] OV L4 Est
== END 2019-10-09 23:59 ==
LOC: WC 07:39
PROVIDERS: PCP Internal Medicine; Referring Provider Surgery; Visit Provider Surgery
DX: S30.810A Abrasion of lower back and pelvis, initial encounter (principal); X58.XXXA Exposure to other specified factors, initial encounter; Y93.9 Activity, unspecified; Z87.891 Personal history of nicotine dependence; I11.0 Hypertensive heart disease with heart failure; J44.9 Chronic obstructive pulmonary disease, unspecified
CPT/HCPCS: 99213; G0463

== ENCOUNTER 2020-02-15 08:06 | Day surgery (SDC) | payer MEDICARE, MEDICAID, SELFPAY ==
[2020-01-25 13:35] VITALS: BMI 44.0
--- NOTE | 2020-02-15 | GASB_PTH ---
PATIENT: DAMION OROZCO LOC: EN U#:[id number] AGE/SX: 74/F ROOM: RE02/15/[address]: Dr. Elmer Chisholm MD : 1945 BED: DIS: 02/15/2020 SPEC #: [id number] RECD: 02/15/20 12:31 STATUS: MARIO VENKAT #: [id number] CAIO: 02/15/20 00:[address]: Elmer Chisholm DEPT: SURGICAL PATHOLOGY RECD BY: Luc Alcaraz ENTERED: 02/15/20 12:31 SP TYPE: Gastric Bx OTHR DR: Dr. Zabrina Bain MD Tissues: Gastric mucous membrane Procedures: Surgery Specimen Level IV HEADER [place] [place] DIAGNOSIS: Gastritis, abdominal pain TISSUE SUBMITTED: Antral biopsy for H. pylori and pathology MICROSCOPIC DIAGNOSIS Gastric antrum, biopsy: Chronic gastritis, moderate to severe. See comment. AM:keith 02/16/20 COMMENT The results of immunohistochemistry for Helicobacter pylori will be reported separately ([id number]). MICROSCOPIC DESCRIPTION Slides are reviewed. GROSS DESCRIPTION Received in fixative is one container labeled with the patient's name and designated antrum biopsy. The specimen consists of two irregular fragments of light ball soft tissue that in aggregate measure 0.3 x 0.2 x 0.1 cm. The specimen is totally submitted in one cassette. / AM:keith 02/15/20 TC:3 CPT: 17026
[2020-02-15 08:49] VITALS: BP 135/61; PULSE 89; RESP 16; TEMP 36.8; O2SAT 98; BMI 44.3
[2020-02-15] MEDS: Lactated Ringers 1,000 ML 100 ML IV (08:56)
--- NOTE | 2020-02-15 09:00 | HP_ITS ---
Intake Vital Signs 01/25/20 Height 5 ft 1 in 01/25/20 Weight: 233 lb 01/25/20 BMI 44.0 01/25/20 BP 99/62 01/25/20 Blood Pressure Location Rt brachial 01/25/20 Position Sitting 01/25/20 Respiration 18 01/25/20 Pulse 85 01/25/20 Pulse Source Monitor 01/25/20 Temp 97.5 F L 01/25/20 Temp Source Temporal 01/25/20 Pulse Oximetry (%) 97 01/25/20 Oxygen Delivery Method room air Intake Visit Reasons: Esophagogastroduodenoscopy Chief Complaint: EGD consult Web Worker Required: No Is patient in pain?: No Allergies adhesive Allergy (Verified 01/25/20 13:36) Itching adhesive tape Allergy (Verified 01/25/20 13:36) Rash amoxicillin trihydrate [From Augmentin] Allergy (Verified 01/25/20 13:36) Hives Iodinated Contrast Media [Iodinated Contrast- Oral and IV Dye] Allergy (Verified 01/25/20 13:36) Anaphylaxis latex Allergy (Verified 01/25/20 13:36) Rash Latex, Natural Rubber Allergy (Verified 01/25/20 13:36) Rash metronidazole [From Flagyl] Allergy (Verified 01/25/20 13:36) Hives Metronidazole HCl [From Flagyl] Allergy (Verified 01/25/20 13:36) Hives Penicillins [PCN] Allergy (Verified 01/25/20 13:36) Hives potassium clavulanate [From Augmentin] Allergy (Verified 01/25/20 13:36) Hives sulfamethoxazole [From Bactrim] Allergy (Verified 01/25/20 13:36) Hives trimethoprim [From Bactrim] Allergy (Verified 01/25/20 13:36) Hives diphenhydramine HCl [From Benadryl] Adverse Reaction (Verified 01/25/20 13:36) i could crawl to the ceiling/diaphoresis/tremor omeprazole Adverse Reaction (Verified 01/25/20 13:36) Nausea promethazine HCl [From Phenergan] Adverse Reaction (Verified 01/25/20 13:36) Nausea antihistamine Allergy (Uncoded 04/13/19 18:11) i could crawl to the ceiling/sleepy/disoriented Medications Albuterol Inhaler [Ventolin Hfa] 2 puff INHALATION Q6H PRN PRN 06/29/14 [History Confirmed 01/25/20] Levothyroxine [Synthroid] 25 mcg PO DAILY 06/29/14 [History Confirmed 01/25/20] Montelukast [Singulair] 10 mg PO QHS 06/29/14 [History Confirmed 01/25/20] Sertraline HCl [Zoloft] 200 mg PO QHS 06/29/14 [History Confirmed 01/25/20] Atorvastatin Calcium [Lipitor] 40 mg PO QHS 09/18/15 [History Confirmed 01/25/20] Fluticasone 0.05% [Flonase Nasal [place]] 2 spray NASAL QHS 09/18/15 [History Confirmed 01/25/20] Pregabalin [Lyrica] 50 mg PO TID 09/18/15 [History Confirmed 01/25/20] traZODone [Desyrel] 150 mg PO QHS 11/26/16 [History Confirmed 01/25/20] Multivitamin [Multiple Vitamins] 1 tab PO DAILY 10/11/17 [History Confirmed 01/25/20] Insulin Lispro [Humalog KwikPen] 12 unit SQ TIDCM 11/18/17 [History Confirmed 01/25/20] Magnesium Oxide [Magnesium] 400 mg PO DAILY 11/18/17 [History Confirmed 01/25/20] busPIRone [Buspar] 15 mg PO BID 07/29/18 [History Confirmed 01/25/20] Fluticasone/Umeclidin/Vilanter [Trelegy Ellipta 100-62.5-25] 1 puff INHALATION DAILY 09/15/18 [History Confirmed 01/25/20] Furosemide 80 mg PO BID 09/15/18 [History Confirmed 01/25/20] Metoprolol Succinate 50 mg PO BID 09/15/18 [History Confirmed 01/25/20] Dicyclomine HCl [Bentyl] 10 mg PO ACHS 04/13/19 [History Confirmed 01/25/20] Lisinopril [Zestril] 5 mg PO DAILY 04/13/19 [History Confirmed 01/25/20] Metoclopramide HCl [Reglan] 5 mg PO TID 04/13/19 [History Confirmed 01/25/20] Metolazone [Zaroxolyn] 5 mg PO DAILY 04/13/19 [History Confirmed 01/25/20] Mirabegron [Myrbetriq] 25 mg PO DAILY 04/13/19 [History Confirmed 01/25/20] Oxybutynin Chloride [Oxybutynin Chloride ER] 15 mg PO DAILY 04/13/19 [History Confirmed 01/25/20] Rabeprazole Sodium [Aciphex] 20 mg PO DAILY 04/13/19 [History Confirmed 01/25/20] Sucralfate [Carafate] 1 gm PO 1HR_ACHS 04/13/19 [History Confirmed 01/25/20] Acetaminophen [Tylenol Tablet] 650 mg PO Q6H PRN PRN tab 04/17/19 [Rx Confirmed 01/25/20] Albuterol Aerosols [Ventolin Aerosols] 2.5 mg INHALATION Q2H PRN PRN vial.neb. 04/17/19 [Rx Confirmed 01/25/20] Insulin Glargine [Lantus SoloStar Pen] 40 units SUBCUT BID pen 04/17/19 [Rx Confirmed 01/25/20] Insulin Lispro [Humalog KwikPen] See Protocol SUBCUT ACHS insuln.pen 04/17/19 [Rx Confirmed 01/25/20] Ipratropium/Albuterol Sulfate [Duoneb] 3 ml INHALATION Q4HWA.RT ampul.neb 04/17/19 [Rx Confirmed 01/25/20] Potassium Chloride [K-Dur] 40 meq PO BIDCM tab 04/17/19 [Rx Confirmed 01/25/20] Psyllium [Metamucil] 1 packet PO DAILY PRN PRN packet 04/17/19 [Rx Confirmed 01/25/20] PFSH Medical History Nonrheumatic aortic valve stenosis (Chronic) Acute diastolic CHF (congestive heart failure) (Chronic) Edema of left lower extremity (Chronic) Secondary pulmonary arterial hypertension (Chronic) Essential (primary) hypertension (Chronic) Right-sided heart failure (Chronic) Obstructive sleep apnea (Chronic) Chronic obstructive pulmonary disease (Chronic) Hyperlipidemia (Chronic) On home oxygen therapy (Chronic) Abdominal pain (Acute) Diarrhea (Acute) Anxiety (Chronic) Bilateral macrostomia (Chronic) Degeneration of intervertebral disc of lumbosacral region (Chronic) Depression (Chronic) Diabetes mellitus, type II (Chronic) Diverticulosis (Chronic) Excoriation (Chronic) Fatty liver disease, nonalcoholic (Chronic) GERD (gastroesophageal reflux disease) (Chronic) Gout of left foot (Chronic) Hypothyroidism (Chronic) IBS (irritable bowel syndrome) (Chronic) Lumbar spinal stenosis (Chronic) Morbid obesity (Chronic) Non Hodgkin's lymphoma (Chronic) Pain in left ankle and joints of left foot (Chronic) Primary osteoarthritis of right hip (Chronic) Radiculopathy of lumbosacral region (Chronic) Right buttock pain (Chronic) Sjogren's syndrome (Chronic) Skin abrasion (Chronic) Spinal stenosis of lumbosacral region (Chronic) Spondylosis of lumbosacral region without myelopathy or radiculopathy (Chronic) Spondylosis of lumbosacral region without myelopathy or radiculopathy (Chronic) Tinea unguium (Chronic) Type 2 diabetes mellitus with diabetic polyneuropathy (Chronic) Breast pain, left (Inactive) Neck pain (Inactive) Pseudomonas aeruginosa infection (Inactive) Surgical History H/O hemorrhoidectomy (Resolved) History of left heart catheterization (Resolved 2003) History of tonsillectomy (Resolved) S/P wrist surgery (Resolved) Family History Brother , history of sudden cardiac CAD (coronary artery disease) CVA (cerebral vascular accident) Brother Sudden cardiac Brother CAD (coronary artery disease) Mother Heart disease Father Brain aneurysm Social History (Updated 01/25/20 @ 13:[address] Elmer Chisholm MD) Smoking Status: Former smoker alcohol intake: never substance use type: does not use HPI HPI Surgical H&P: Yes HPI: DAMION OROZCO, is a 74 F who presents to the office today for Evaluation for an EGD. This patient recently had a positive H. pylori stool test as well as chronic loose stools. She had H. pylori antigen positivity. This was done on 11/27/2019. Patient has had numerous upper endoscopies most recent was by Dr. Hampton in 2019. She has had reported history of gastric ulcers in the past. She has had H. pylori in the past and has undergone treatment. Recently however her allergies to certain antibiotics has precluded her from being actively treated. She states that she has burning in her stomach she takes Zofran for nausea she has to take Imodium for chronic diarrhea. ROS General General: Yes fatigue; no weight change, appetite, colon cancer, breast cancer or weakness HEENT HEENT: Yes difficulty swallowing and eye surgery; no eye injury, swollen glands or hoarseness Endo Endocrine: Yes thyroid disease and diabetes mellitus; no thyroid cancer, Hair loss, heat intolerance or cold intolerance Skin Skin: Yes rash; no changing moles Breast Breast: No left breast lump, right breast lump, nipple discharge, breast pain, abnormal mammogram, abnormal US or breast enlargement Musc Musculoskeletal: Yes back problems, arthritis and gout; no rheumatoid arthritis or joint pain Cardio Cardiovascular: Yes heart disease and high blood pressure; no murmur, pacemaker, atrial fibrillation, heart attack, heart stent, palpitations, shortness of breat with exertion or chest pain Psych Psychiatric: Yes depression and anxiety; no hearing voices Resp Respiratory: Yes shortness of breath, Yes sleep apnea, No cough, Yes COPD, No asthma, No emphysema, No wheezing Gastro Gastrointestinal: Yes abdominal pain, Yes nausea or vomiting, Yes diarrhea, No constipation, No blood in stool, Yes acid reflux, Yes hemorrhoids, No ulcers, No gallbladder problem, No black,tarry stools Bjorn Hematologic: No blood thinners, No blood disorders, No bleeding, No anemia, No blood clots Neuro Neurologic: No system reviewed and no additional complaints, except as docu, No as per HPI, No abnormal walking, No abnormal hearing, No abnormal movements, No abnormal speech, No behavioral changes, No burning sensations, No confusion, No seizure-like activity, No unsteadiness, No dizziness, No localized weakness, No frequent falls, No headache(s), No lack of coordination, No loss of vision, No memory loss, Yes numbness, No other visual disturbances, No radiating pain, No restless legs, No sensory deficit, No fainting, Yes tingling, No tremor(s), No weakness, No other Exam Const General: no acute distress, well developed, well hydrated Orientation: oriented to person, oriented to place, oriented to time [facility] Head: normocephalic, atraumatic Ears: external ears normal Mouth: moist mucous membranes Eyes Sclera: sclerae normal Pupils: normal by confrontation Neck Neck: no lymphadenopathy noted Neck mass: No Thyroid: thyroid normal, symmetrical Chest Chest palpation & inspection: normal inspection of the chest Breast Palpation: No nipple discharge Resp Effort & Inspection: normal respiratory effort Auscultation: clear to auscultation bilaterally Percussion: percussion normal Cardio Rate: regular rate Rhythm: regular rhythm Heart Sounds: no murmurs GI Inspection: obesity Palpation: soft, no hepatosplenomegaly, no masses, nontender Rectal Exam: other Other: Rectal exam deferred. Extrem General: normal to inspection, no clubbing, cyanosis or edema Assessment & Plan Problems 1. Helicobacter pylori gastritis K29.70; B96.81 2. Epigastric abdominal pain R10.13 Plan I have discussed the above with the patient. I have offered the patient esophagogastroduodenoscopy for evaluation. I have explained the risks/benefits of the procedure and described the procedure. I have discussed the risks with the patient, including but not limited to: infection, bleeding, perforation of the GI tract requiring emergency surgery, inability to complete the procedure, injury to any internal organs, complications of anesthesia, etc. - the patient understands and agrees to proceed. I have answered all the patient's questions to the patient's satisfaction and the patient has no further questions. The patient has been given instructions for the colon cleansing preparation. Coding Level of Care Code Off vis,new,level 3 Diagnoses Helicobacter pylori gastritis K29.70; B96.81 Epigastric abdominal pain R10.13 COVID (Procedure Consent) Procedure Criteria Procedure Criteria: Yes Elective The surgeon/proceduralist and patient have discussed in detail the risk of exposure to and/or potential harm posed by the COVID-19 virus with having a surgery/procedure at this time versus the risk of? delaying the surgery/procedure. It is not possible to know either the risk of delaying the surgery or procedure or chance of getting an infection with perfect accuracy, but a joint decision was made between the patient and the surgeon/proceduralist ?to proceed at this time with the scheduled surgery/procedure as indicated on the consent form. I have re-examined the patient. There are no clinical changes since date of exam.
[2020-02-15 09:05] LABS: Bedside Glucose 230 mg/dL (70-110)
--- NOTE | 2020-02-15 09:15 | IMM_PTH ---
PATIENT: DAMION OROZCO LOC: [facility] U#:[id number] AGE/SX: 74/F ROOM: RE02/15/[address]: Dr. Elmer Chisholm MD : 1945 BED: DIS: 02/15/2020 SPEC #: [id number] RECD: 02/15/20 14:32 STATUS: MARIO REQ #: [id number] CAIO: 02/15/20 09:[address]: Elmer Chisholm DEPT: IMMUNOHISTOCHEMISTRY RECD BY: Marjorie Murphy ENTERED: 02/15/20 14:32 SP TYPE: IMMUNO OTHR DR: Dr. Zabrina Bain MD Tissues: Stomach, NOS Procedures: H Pylori (initial) PHYSICIAN & INSTITUTION [place] [id number] SPECIMEN INFORMATION: Tissue Source: Antral biopsy Clinical Info: Gastritis, abdominal pain Specimen Number: [id number] CPT code: 37876 METHODOLOGY: Deparaffinized sections of prefer/formalin-fixed tissue or PAP/DQ stained slides are incubated with monoclonal/polyclonal antibodies/oligonucleotide probes. Localization is made via biotin free immunoperoxidase method. Appropriate controls are performed and reacted as expected. Results on target cell population are indicated in the following table: RESULTS: ANTIBODY / CLONE RESULT H Pylori (polyclonal) positive These tests were developed and their performance characteristics determined by [facility]. They may not have been cleared or approved by the U.S. Food and Drug Administration. The FDA has determined that such clearance or approval is not necessary. INTERPRETATION: Antral biopsy: Positive for Helicobacter pylori organisms. AM:keith 02/16/20
[2020-02-15 09:32] VITALS: BP 105/58; BP 135/61; PULSE 85; RESP 18; TEMP 36.8; O2SAT 96
--- NOTE | 2020-02-15 09:34 | OP.EGD_ITS ---
Patient Name: Feli Moyer Procedure Date: 02/15/2020 9:11 AM Date of : 1945 Age: 74 Procedure: Upper GI endoscopy Indications: Epigastric abdominal pain, Helicobacter pylori Providers: Elmer Chisholm MD Referring MD: Zabrina Bain Medicines: See the Anesthesia note for documentation of the administered medications Patient Profile: This is a 74 year old female. Refer to note in patient chart for documentation of history and physical. Complications: No immediate complications. Procedure: Pre-Anesthesia Assessment: - Prior to the procedure, a History and Physical was performed, and patient medications and allergies were reviewed. The patient's tolerance of previous anesthesia was also reviewed. The risks and benefits of the procedure and the sedation options and risks were discussed with the patient. All questions were answered, and informed consent was obtained. Prior Anticoagulants: The patient has taken no previous anticoagulant or antiplatelet agents. ASA Grade Assessment: III - A patient with severe systemic disease. After reviewing the risks and benefits, the patient was deemed in satisfactory condition to undergo the procedure. After obtaining informed consent, the endoscope was passed under direct vision. Throughout the procedure, the patient's blood pressure, pulse, and oxygen saturations were monitored continuously. The gastroscope was introduced through the mouth, and advanced to the second part of duodenum. The upper GI endoscopy was accomplished without difficulty. The patient tolerated the procedure well. Scope In: 9:24:08 AM Scope Out: 9:27:48 AM Total Procedure Duration Time 0 hours 3 minutes 40 seconds Findings: The examined esophagus was normal. A large amount of food (residue) was found on the greater curvature of the stomach. Diffuse moderate inflammation characterized by erythema and granularity was found in the prepyloric region of the stomach. Biopsies were taken with a cold forceps for Helicobacter pylori testing. The examined duodenum was normal. No biopsies or other specimens were collected for this exam. Impression: - Normal esophagus. - A large amount of food (residue) in the stomach. - Gastritis. Biopsied. - Normal examined duodenum. No specimens collected. Recommendation: - Discharge patient to home. - Resume previous diet. - Continue present medications. - Await pathology results. - Repeat upper endoscopy at appointment to be scheduled for surveillance. - Return to primary care physician at appointment to be scheduled. Procedure Code(s): --- Professional --- 64425, Esophagogastroduodenoscopy, flexible, transoral; with biopsy, single or multiple Diagnosis Code(s): --- Professional --- K29.70, Gastritis, unspecified, without bleeding R10.13, Epigastric pain B96.81, Helicobacter pylori [H. pylori] as the cause of diseases classified elsewhere CPT copyright 2017 [employer]. All rights reserved. The codes documented in this report are preliminary and upon electric wheelchair repairer review may be revised to meet current compliance requirements. MD Elmer Scherer MD 02/15/2020 9:33:59 AM This report has been signed electronically. Number of Addenda: 0 Note Initiated On: 02/15/2020 9:11 AM
--- NOTE | 2020-02-15 09:34 | OP.CCLET_ITS ---
02/15/2020 Zabrina Bain [address] [place] [address] Re : Upper GI endoscopy procedure for Feli Moyer Dear Dr. Bain This procedure was performed on Saturday, February 15, 2020. My impressions and recommendations are as follows: Impressions : - Normal esophagus. - A large amount of food (residue) in the stomach. - Gastritis. Biopsied. - Normal examined duodenum. No specimens collected. Recommendations : - Discharge patient to home. - Resume previous diet. - Continue present medications. - Await pathology results. - Repeat upper endoscopy at appointment to be scheduled for surveillance. - Return to primary care physician at appointment to be scheduled. My findings are described in the full procedure note, which is enclosed. If I can be of further assistance, please feel free to contact me at Doctor phone number(s): , Fax: [phone], Work: . Sincerely, MD Elmer Scherer MD 02/15/2020 9:33:59 AM This report has been signed electronically.
[2020-02-15 09:35] VITALS: BP 103/52; BP 135/61; PULSE 84; RESP 16; O2SAT 95
[2020-02-15 09:40] VITALS: BP 114/51; BP 135/61; PULSE 83; RESP 16; O2SAT 95
[2020-02-15 09:45] VITALS: BP 130/51; BP 135/61; PULSE 83; RESP 16; TEMP 37.1; O2SAT 95
[2020-02-15 10:06] VITALS: BP 135/61
== END 2020-02-15 10:28 | disposition home or self-care (01) ==
LOC: EN 08:06 → AC 08:07
PROVIDERS: PCP Internal Medicine; Referring Provider Internal Medicine; Visit Provider Surgery
PROC: 0DJ08ZZ Inspection of Upper Intestinal Tract, Via Natural or Artificial Opening Endoscopic (ICD-10-PCS; CPT 43235; principal; 2020-02-15 09:10)
DX: K29.50 Unspecified chronic gastritis without bleeding (principal); B96.81 Helicobacter pylori [H. pylori] as the cause of diseases classified elsewhere; Z20.828 Contact with and (suspected) exposure to other viral communicable diseases; G47.33 Obstructive sleep apnea (adult) (pediatric); M51.37 Other intervertebral disc degeneration, lumbosacral region; E78.5 Hyperlipidemia, unspecified; I27.21 Secondary pulmonary arterial hypertension; J44.9 Chronic obstructive pulmonary disease, unspecified; I11.0 Hypertensive heart disease with heart failure; I50.812 Chronic right heart failure; E66.01 Morbid (severe) obesity due to excess calories; Z68.41 Body mass index [BMI] 40.0-44.9, adult; E03.9 Hypothyroidism, unspecified; M10.9 Gout, unspecified; E11.42 Type 2 diabetes mellitus with diabetic polyneuropathy; K21.9 Gastro-esophageal reflux disease without esophagitis; F32.9 Major depressive disorder, single episode, unspecified; F41.9 Anxiety disorder, unspecified; Z99.81 Dependence on supplemental oxygen; Z79.899 Other long term (current) drug therapy; Z79.51 Long term (current) use of inhaled steroids; Z79.4 Long term (current) use of insulin; Z87.891 Personal history of nicotine dependence
CPT/HCPCS: 43239; 82962; 87426; 88305; 88342; C9803; J7120; A4216; J2405

== ENCOUNTER → 2020-02-29 15:53 | Outpatient (CLI) | payer MEDICARE, MEDICAID, SELFPAY ==
--- NOTE | 2020-02-29 15:55 | CT_ITS ---
STUDY: CT SOFT TISSUE NECK WITHOUT CONTRAST REASON FOR EXAM: Female, 74 years old. LEFT PAROTID MASS -- HX-LYMPHOMA RADIATION DOSAGE (If Supplied By Facility): CTDIvol = ( 13.05 ) mGy, DLP = ( 330.81 ) mGycm TECHNIQUE: The patient was scanned in a multi-detector CT scanner. High resolution transaxial imaging was performed without the administration of intravenous contrast material. Sagittal and coronal images were reconstructed. Individualized dose optimization techniques were used for this CT. COMPARISON: Comparison is made with prior examination dated 04/07/2019. FINDINGS: A left-sided portacatheter is seen with the tip in the superior vena cava. Stable 5.2 mm well-defined nodule in the superior aspect of the left parotid. A central fatty notch is seen. This may represent a small lymph node. Normal bilateral academic support specialist spaces. Normal bilateral parapharyngeal spaces. Normal bilateral carotid spaces. Normal bilateral sublingual and submandibular glands and spaces. Normal visualized nasopharynx. Normal retropharyngeal space. Normal perivertebral space. Normal visualized bilateral faucial tonsils. The visualized tongue, tongue base and oropharynx are normal. The visualized cervical lymph nodes (levels I-) are within normal size limits, and maintain normal morphology. There is no demonstrated solid or cystic mass lesion. Normal epiglottis, bilateral vallecula and hypopharynx. The pre-epiglottic and paraglottic adipose spaces are normal. Normal visualized bilateral piriform sinuses, aryepiglottic folds, vocal cords, and arytenoid-cricoid articulations. Normal subglottic trachea. Normal bilateral lobes of the thyroid gland. Normal visualized pulmonary apices. Normal visualized paranasal sinuses. There is degenerative changes of the cervical spine. CT/Soft Tissue Neck without Contr IMPRESSION: Stable examination. No acute abnormality is seen. Electronically Signed: Raghu Arnett, at 8:33 EST , Service support ,
== END ==
PROVIDERS: PCP Internal Medicine; Referring Provider Otolaryngology; Visit Provider Otolaryngology
DX: E65 Localized adiposity (principal)
CPT/HCPCS: 70490

== ENCOUNTER 2020-04-25 06:12 | Day surgery (SDC) | payer MEDICARE, MEDICAID, SELFPAY ==
[2020-04-25] VITALS (7 sets, daily range): BP systolic 111–135; BP diastolic 63–79; PULSE 82–85; RESP 16; TEMP 36.4–36.6; O2SAT 94–95; BMI 44.9
[2020-04-25] MEDS: Lactated Ringers 1,000 ML 100 ML IV (06:54)
--- NOTE | 2020-04-25 07:42 | RAD_ITS ---
STUDY: X-RAY - LUMBAR SPINE REASON FOR EXAM: Female, 74 years old. RIGHT L3-S1 RFA TECHNIQUE: 10 intraoperative view(s) of the lumbar spine were obtained. COMPARISON: None FINDINGS: Intraoperative imaging provided for right L3-S1 radiofrequency ablation. RAD/L/S Spine Min 4 Views IMPRESSION: Intraoperative imaging provided for right L3-S1 radiofrequency ablation. Electronically Signed: Raghu Arnett MD at 12:27 EST , Service support ,
[2020-04-25 07:51] LABS: Bedside Glucose 197 mg/dL (70-110)
[2020-04-25] MEDS: MethylPREDNISolone Acetate 40 MG/ML Vial IM (07:56)
[2020-04-25] MEDS: Lidocaine 1% (30 ml sdv) 30 ML Vial (07:56)
[2020-04-25] MEDS: Bupivacaine 0.25% 30 ML Vial (07:57)
--- NOTE | 2020-04-25 15:28 | PCM.OPRPT ---
Report of Operation Date of Procedure: 04/25/20 Description of Surgical Findings:: PREOPERATIVE DIAGNOSIS: Lumbosacral spondylosis, lumbosacral degenerative disc disease, lumbar facet arthropathy POSTOPERATIVE DIAGNOSIS: Lumbosacral spondylosis, lumbosacral degenerative disc disease, lumbar facet arthropathy PROCEDURE PERFORMED: Right-sided lumbar radiofrequency ablation of the medial branch at L3, L4, L5, and S1. ANESTHESIA: MAC. BLOOD LOSS: Minimal. COMPLICATIONS: None. DESCRIPTION OF PROCEDURE: History and physical of today was reviewed. Risks and benefits of the procedure were explained. The patient understood and agreed to proceed. Informed consent was obtained. IV inserted per routine protocol. The patient was taken to the operating room and placed in the prone position with a pillow positioned underneath the abdomen. The right side of her lower back was prepped and draped in a sterile fashion using iodine x3. Under fluoroscopy guidance in an oblique view, the L3 through S1 vertebral bodies were visualized. The skin and subcutaneous tissue was anesthetized with approximately 10 mL of 1% lidocaine using a 25-gauge regular needle. Under direct visualization on fluoroscopy at approximately 25-degree angle, starting on the right L3, ending on the right S1, passing through the L4 and L5, using a 20-gauge 15-cm with a 10-mm curved active-tip radiofrequency ablation needle, the needle was passed through the skin. The tip of the needle was maneuvered and directed towards the superior medial gutter of the transverse process at the vicinity of the medial branch. Once the tip of the needle was in contact with the bone, the needle was pulled approximately 2 mm off the bone. The stylette of each needle was then removed. After negative aspiration of blood or CSF and confirmation on AP, oblique as well as lateral view, the radiofrequency ablation probe was then inserted at each level. Impedance was then recorded at L3 to be 241 ohm, at L4 to be 268 ohm, at L5 to be 278 ohm, and at S1 to be 370 ohm. Motor evoked potential was then initiated to 1.5 volt without any motor response at each corresponding level. The probe was then removed intact and a total of 6 mL of preservative-free 1% lidocaine was injected in divided doses between those four levels after negative aspiration of blood or CSF. The radiofrequency ablation probe was then reinserted. After confirmation on AP, oblique as well as lateral view, radiofrequency ablation was then initiated to 80 degree Celsius for 90 second at each level. Once concluded, the probe was then removed intact. A total of 6 mL of preservative-free 0.25% Marcaine with 40 mg of Depo-Medrol was injected in divided doses between those four levels. The needles were then removed intact. The patient experienced no sign or symptoms of intrathecal or intravascular injection. The patient experienced no paresthesia. The procedure was completed without any apparent difficulty or any complications. The patient appeared to tolerate it well. Sensory as well as motor exam was unchanged from prior to the procedure. ASSESSMENT AND PLAN: This is a 74-year-old female with lumbosacral spondylosis, lumbosacral degenerative disc disease, lumbar facet arthropathy status post right-sided lumbar radiofrequency ablation of the medial branch L3-S1, patient will continue her current medications, patient will follow in approximately 2 weeks for reevaluation.
== END 2020-04-25 09:05 | disposition home or self-care (01) ==
LOC: SDC 06:14 → AC 06:15
PROVIDERS: PCP Internal Medicine; Referring Provider Anesthesiology Pain Medicine; Visit Provider Anesthesiology Pain Medicine
PROC: (CPT 64635; principal; 2020-04-25 07:15)
DX: M47.817 Spondylosis without myelopathy or radiculopathy, lumbosacral region (principal); M51.37 Other intervertebral disc degeneration, lumbosacral region; F41.9 Anxiety disorder, unspecified; F32.9 Major depressive disorder, single episode, unspecified; J44.9 Chronic obstructive pulmonary disease, unspecified; E07.9 Disorder of thyroid, unspecified; K21.9 Gastro-esophageal reflux disease without esophagitis; M19.90 Unspecified osteoarthritis, unspecified site; K76.0 Fatty (change of) liver, not elsewhere classified; I25.10 Atherosclerotic heart disease of native coronary artery without angina pectoris; K58.9 Irritable bowel syndrome, unspecified; I10 Essential (primary) hypertension; E78.5 Hyperlipidemia, unspecified; G47.33 Obstructive sleep apnea (adult) (pediatric); C85.90 Non-Hodgkin lymphoma, unspecified, unspecified site; Z87.891 Personal history of nicotine dependence; Z99.81 Dependence on supplemental oxygen; Z79.4 Long term (current) use of insulin; Z79.899 Other long term (current) drug therapy; Z79.891 Long term (current) use of opiate analgesic
CPT/HCPCS: 64635; 64636 ×2; 72100; 72110; 76000; 82962; J7120; A4216; J2405

== ENCOUNTER → 2020-05-31 09:41 | Outpatient (CLI) | payer MEDICARE, MEDICAID, SELFPAY ==
[2020-04-25 06:47] VITALS: BMI 44.9
--- NOTE | 2020-05-31 10:30 | ASPOS_PTH ---
PATIENT: DAMION OROZCO LOC: [facility] U#:[id number] AGE/SX: 79/F ROOM: RE05/31/[address]: Dr. Carlos Marie MD : 1945 BED: DIS: SPEC #: [id number] RECD: 05/31/20 10:59 STATUS: MARIO RESravan #: [id number] CAIO: 05/31/20 10:[address]: Carlos Marie DEPT: CYTOLOGY RECD BY: Mame Mccollum ENTERED: 05/31/20 11:00 SP TYPE: ASP HERE OTHR DR: Dr. Zabrina Bain MD Tissues: Parotid gland, NOS Procedures: Surgery Specimen Level IV Cytology Other Fine Needle Asp on Site HEADER OPERATION: Fine needle aspiration left parotid mass PRE-OP DIAGNOSIS: Left parotid mass TISSUE SUBMITTED: Left parotid mass DIAGNOSIS CYTOLOGY Fine needle aspiration, left parotid mass (smears and cell block): Benign salivary gland tissue. AM:keith 06/01/2020 COMMENT The specimen is evaluated at the time of FNA by Dr. Morse. Immediate Evaluation = Negative for malignant cells. CYTOLOGY STUDY Slides are reviewed. CYTOLOGY GROSS Received is 0.2 ml of reddish-ball fluid labeled with the patient's name, and designated left parotid mass. Seven imprints and three paps are made from the submitted fluid and the rest is added to CytoLyt for cell block preparation. Submitted for cytology study. / AM:keith 05/31/2020 TC:5 CPT: 11238, 25132, 80076, 25075
== END ==
PROVIDERS: PCP Internal Medicine; Referring Provider Otolaryngology; Visit Provider Otolaryngology
DX: R22.1 Localized swelling, mass and lump, neck (principal)
CPT/HCPCS: 10021; 88161; 88305

== ENCOUNTER 2020-08-29 07:56 | Day surgery (SDC) | payer MEDICARE, MEDICAID, SELFPAY ==
[2020-04-25 06:47] VITALS: BMI 44.9
[2020-08-29] VITALS (7 sets, daily range): BP systolic 139–185; BP diastolic 62–85; PULSE 81–82; RESP 18; TEMP 36.8–37.4; O2SAT 93–97; BMI 44.9
[2020-08-29] MEDS: Lactated Ringers 1,000 ML 100 ML IV (08:34)
--- NOTE | 2020-08-29 09:08 | RAD_ITS ---
STUDY: X-RAY - PELVIS AND RIGHT HIP REASON FOR EXAM: Female, 75 years old. Right hip injection. Intraprocedural digital documentation. TECHNIQUE: A single frontal digital views of the pelvis and hip. COMPARISON: None. FINDINGS: Single frontal view of the hip shows severe osteoarthritic changes. Needle has been placed laterally and contrast is within the joint. RAD/Fluoro Guided Needle Placement IMPRESSION: Documentation of intra-articular contrast. Electronically Signed: Dallas More MD at 13:22 EDT , Service support ,
[2020-08-29] MEDS: Bupivacaine 0.25% 30 ML Vial (09:16)
[2020-08-29] MEDS: Lidocaine 1% (30 ml sdv) 30 ML Vial (09:16)
[2020-08-29] MEDS: MethylPREDNISolone Acetate 80 MG/ML Vial (09:16)
[2020-08-29 09:35] LABS: Bedside Glucose 163 mg/dL (70-110)
--- NOTE | 2020-08-29 16:35 | PCM.OPRPT ---
Report of Operation Date of Procedure: 08/29/20 Description of Surgical Findings:: PREOPERATIVE DIAGNOSIS: Osteoarthritis of the right hip POSTOPERATIVE DIAGNOSIS: Osteoarthritis of the right hip PROCEDURE PERFORMED: Right hip intraarticular steroid injection under fluoroscopy guidance. ANESTHESIA: MAC. BLOOD LOSS: Minimal. COMPLICATIONS: None. DESCRIPTION OF PROCEDURE: History and physical of today was reviewed. Risks and benefits of the procedure were explained. The patient understood and agreed to proceed. Informed consent was obtained. IV inserted per routine protocol. The patient was taken to the operating room and placed in the supine position. The right hip area was prepped and draped in a sterile fashion using iodine x3. Under fluoroscopy guidance on AP view, the right hip joint was visualized. The skin and subcutaneous tissue was anesthetized with approximately 3 mL of 1% lidocaine using a 25-gauge regular needle approximately 3 cm cephalad to the right greater trochanter. Under direct visualization with fluoroscopy on an AP view, using a 22-gauge 5-inch spinal needle, the needle was advanced via the skin using the lateral approach. The tip of the needle was maneuvered and directed towards the superiormost aspect of the hip joint. Once the tip of the needle was at the vicinity of the joint, after negative aspiration for blood and positive aspiration of synovial fluid, a total of 1 mL of contrast was injected to confirm correct placement of the needle as well as halo spread around the hip joint. After repeated negative aspiration for blood and confirmation on AP as well as oblique view, a total of 10 mL of preservative-free 0.25% Marcaine with 80 mg of Depo-Medrol was injected easily. The needle was then removed intact. The patient experienced no sign or symptoms of intrathecal or intravascular injection. The patient experienced no paresthesia. The procedure was completed without any apparent difficulty or any complications. The patient appeared to tolerate it well. ASSESSMENT AND PLAN: This is a 75-year-old female with osteoarthritis of the right hip status post right hip intra-articular steroid injection under fluoroscopic guidance, patient will continue her current medications, patient will follow in approximately 2 weeks for reevaluation.
== END 2020-08-29 10:35 | disposition home or self-care (01) ==
LOC: SDC 07:56 → AC 07:57
PROVIDERS: PCP Internal Medicine; Referring Provider Anesthesiology Pain Medicine; Visit Provider Anesthesiology Pain Medicine
PROC: 3E0U3GC Introduction of Other Therapeutic Substance into Joints, Percutaneous Approach (ICD-10-PCS; CPT 20610; principal; 2020-08-29 09:25)
DX: M16.11 Unilateral primary osteoarthritis, right hip (principal); K21.9 Gastro-esophageal reflux disease without esophagitis; F41.9 Anxiety disorder, unspecified; K58.9 Irritable bowel syndrome, unspecified; I25.10 Atherosclerotic heart disease of native coronary artery without angina pectoris; F32.9 Major depressive disorder, single episode, unspecified; J44.9 Chronic obstructive pulmonary disease, unspecified; G47.33 Obstructive sleep apnea (adult) (pediatric); I11.0 Hypertensive heart disease with heart failure; I50.32 Chronic diastolic (congestive) heart failure; I27.21 Secondary pulmonary arterial hypertension; M10.9 Gout, unspecified; E66.01 Morbid (severe) obesity due to excess calories; E03.9 Hypothyroidism, unspecified; E11.42 Type 2 diabetes mellitus with diabetic polyneuropathy; E78.5 Hyperlipidemia, unspecified; Z87.891 Personal history of nicotine dependence; Z79.899 Other long term (current) drug therapy; Z79.4 Long term (current) use of insulin; Z79.891 Long term (current) use of opiate analgesic; Z99.81 Dependence on supplemental oxygen; Z68.41 Body mass index [BMI] 40.0-44.9, adult
CPT/HCPCS: 20610; 76000; 77002; 82962; J7120; A4216

== ENCOUNTER → 2020-09-28 15:16 | Outpatient (CLI) | payer MEDICARE, MEDICAID, SELFPAY ==
[2020-08-29 08:34] VITALS: BMI 44.9
[2020-09-28 17:42] LABS: Absolute Lymphocyte Count 1.68 X10^3/uL (0.83-4.51); Absolute Neutrophil Count 5.2 X10^3/uL (2.0-7.7); Basophil# 0.05 X10^3/uL; Basophil% 0.6 % (0-1); Eosinophil# 0.37 X10^3/uL; Eosinophils% 4.7 % (0-5); Hematocrit 33.2 % (37-47); Hemoglobin 10.3 g/dL (12.0-15.0); Lymphocyte # 1.68 X10^3/ul (0.83-4.51); Lymphocyte % 21.3 % (19-41); Mean Corpuscular Hgb 31.7 pg (27.0-32.0); Mean Corpuscular Volume 102.2 fL (81-99); Monocyte# 0.55 X10^3/uL; NRBC Flagged by Analyzer 0 % (0-5); Neutrophil # 5.21 X10^3/uL (2.7-7.7); Neutrophil % 65.9 % (47-70); Platelet Count 216 K/mm3 (150-450); RBC Distribution Width CV 15.9 % (11.6-14.6); RBC Distribution Width SD 59.3 fl (35.1-43.9); Red Blood Count 3.25 M/mm3 (4.2-5.4); White Blood Count 7.9 K/mm3 (4.4-11.0)
[2020-09-28 17:46] LABS: Erythrocyte Sedimentation Rate 39 mm/hr (0-30)
== END ==
PROVIDERS: PCP Internal Medicine; Referring Provider Ophthalmology; Visit Provider Ophthalmology
DX: H53.131 Sudden visual loss, right eye (principal)
CPT/HCPCS: 36415; 85025; 85652; 86140

== ENCOUNTER → 2020-10-28 14:04 | Outpatient (CLI) | payer MEDICARE, MEDICAID, SELFPAY ==
--- NOTE | 2020-10-28 14:35 | RAD_ITS ---
STUDY: X-RAY CHEST REASON FOR EXAM: Female, 75 years old. SOB TECHNIQUE: PA and lateral views of the chest. COMPARISON: 09/15/2018 FINDINGS: Left internal jugular chest port which is unchanged. The lungs are clear and expanded. There is no demonstrated pleural abnormality. There is moderate cardiac enlargement. Normal mediastinum and osvaldo. Normal visualized pulmonary arteries. Normal visualized aortic arch and descending thoracic aorta. Normal visualized thoracic spine. Normal visualized ribs, clavicles, and shoulders. There is no demonstrated abnormality of the visualized soft tissue structures of the upper abdomen. RAD/Chest PA and Lateral IMPRESSION: No active disease. Electronically Signed: Robin Melendez MD at 7:46 EDT Tel , Service support ,
[2020-10-28 15:02] LABS: BNP,B-Type NATRIURETIC PEPTIDE 83.2 pg/mL (0-100)
[2020-10-28 15:05] LABS: Anion Gap 5 (5-15); BUN 42 mg/dL (7-18); BUN/Creat Ratio 31.1 RATIO (10-20); Calcium,Total 9.1 mg/dL (8.5-10.1); Chloride 103 mmol/L (98-107); Creatinine, Serum 1.35 mg/dL (0.55-1.02); EST Glomerular Filtration Rate 41 mL/min (>60); Est Glom Filt Rate - Afr Amer 49 mL/min (>60); Glucose 125 mg/dL (74-106); Potassium 4.5 mmol/L (3.5-5.1); Sodium Level 141 mmol/L (136-145)
== END ==
PROVIDERS: Nurse Practitioner Gerontology; PCP Internal Medicine; Visit Provider Internal Medicine Cardiovascular Disease
DX: I50.31 Acute diastolic (congestive) heart failure (principal); R06.02 Shortness of breath
CPT/HCPCS: 36415; 71046; 80048; 83880

== ENCOUNTER 2020-11-27 11:09 | Inpatient (IN) | payer MEDICARE, MEDICAID, SELFPAY ==
[2020-11-27] VITALS (14 sets, daily range): BP systolic 144–154; BP diastolic 65–83; PULSE 69–92; RESP 12–24; TEMP 35.9–36.9; O2SAT 92–99; BMI 48.7; BMI 46.7
--- NOTE | 2020-11-27 11:23 | RAD_ITS ---
History: dyspnea EXAMINATION/TECHNIQUE: XR Chest 1 View: Portable COMPARISON: October 28, 2020 FINDINGS: LINES/DEVICES: Left IJ infusion catheter remains in place. LUNGS: Mild airspace opacification of the right lung and left lower lobe suggestive of pneumonia and/or pulmonary edema. No pneumothorax. MEDIASTINUM AND CARDIOVASCULAR STRUCTURES: Stable heart size. Central airways and mediastinal contour are unremarkable. BONES AND SOFT TISSUES: Unremarkable. RAD/Chest 1 View (Portable) IMPRESSION: Bilateral lung densities consistent with pneumonia/pulmonary edema. at 1242 Reported and signed by: Pete Beltran MD Electronically Signed: Pete Beltran MD at 12:41 EDT Tel , Service support ,
--- NOTE | 2020-11-27 11:24 | EKG12_ITS ---
Test Reason : SOB Blood Pressure : / mmHG Vent. Rate : 073 BPM Atrial Rate : 073 BPM P-R Int : 208 ms QRS Dur : 084 ms QT Int : 380 ms P-R-T Axes : 063 -23 052 degrees QTc Int : 418 ms Normal sinus rhythm Low voltage QRS Borderline ECG Confirmed by SAMANTHA REGALADO, FERCHO ([id number]), society editor TOM CHOE ([id number]) on 11/29/2020 1:41:24 PM Referred By: DAKOTA Confirmed By:FERCHO SINGH MD
--- NOTE | 2020-11-27 11:26 | ED.VIS.DYS ---
HPI History of Present Illness Chief Complaint: Shortness of Breath Informant: patient Onset/Context/Timing Onset: Weeks Context: gradual Timing: Continuous Current Severity: Mild Maximum Severity: Moderate Associated Symptoms cough; Negative for rhinorrhea, post nasal drip, ear pain, fever, sore throat, subjective, chills, sweats, clear sputum, white sputum, yellow sputum or green sputum Chest Pain: Positive for None Narrative Narrative: 75-year-old female past medical history of valvular heart disease, congestive heart failure, COPD on 3 and half liters of oxygen at home, diabetes, renal insufficiency, prior history of non-Hodgkin's lymphoma. Patient states for the last 3+ weeks she has had worsening shortness of breath. She states she put it off and did not want to come the hospital if she had to. Denies fever. Denies vomiting or diarrhea. Denies melena. Denies chest pain or hemoptysis. Has a chronic cough no new sputum. PE Risk Factors: Negative for Cancer, OCP + Smoking + > 35, Recent immobilization, Recent surgery and Recent travel Prior similar symptoms: Yes Recent Illness/Hospitalization: No PFSH PFSH Medical History Abdominal pain Abrasion of second toe, right Acute diastolic CHF (congestive heart failure) Anxiety Bilateral macrostomia Breast hematoma Breast pain, left Cancer Chronic neck and back pain Chronic obstructive pulmonary disease Contusion of second toe, right Degeneration of intervertebral disc of lumbosacral region Depression Diabetes mellitus, type II Diarrhea Difficulty balancing when standing Diverticulosis Edema of left lower extremity Essential (primary) hypertension Excoriation Fatigue Fatty liver disease, nonalcoholic GERD (gastroesophageal reflux disease) Gout of left foot Hyperlipidemia Hypothyroidism IBS (irritable bowel syndrome) Injury of right great toe Limb weakness Lumbar spinal stenosis Morbid obesity Neck pain Non Hodgkin's lymphoma Nonrheumatic aortic valve stenosis Obstructive sleep apnea On home oxygen therapy Pain in left ankle and joints of left foot Positive H. pylori test Primary osteoarthritis of right hip Pseudomonas aeruginosa infection Radiculopathy of lumbosacral region Right buttock pain Right-sided heart failure Secondary pulmonary arterial hypertension Sjogren's syndrome Skin abrasion Spinal stenosis of lumbosacral region Spondylosis of lumbosacral region without myelopathy or radiculopathy Spondylosis of lumbosacral region without myelopathy or radiculopathy Tinea unguium Type 2 diabetes mellitus with diabetic polyneuropathy Home Medications albuterol sulfate 2 puff INHALATION Q6H PRN PRN 06/29/14 [History Last Taken 04/12/19] levothyroxine 25 mcg PO DAILY 06/29/14 [History Last Taken 04/13/19] montelukast 10 mg PO QHS 06/29/14 [History Last Taken 04/13/19] sertraline 200 mg PO QHS 06/29/14 [History Last Taken 04/12/19] atorvastatin 40 mg PO QHS 09/18/15 [History Last Taken 04/12/19] fluticasone propionate 2 spray NASAL QHS PRN 09/18/15 [History Last Taken 04/12/19] pregabalin 50 mg PO TID 09/18/15 [History Last Taken 04/13/19] trazodone 150 mg PO QHS 11/26/16 [History Last Taken 04/12/19] multivitamin 1 tab PO DAILY 10/11/17 [History Last Taken 04/13/19] magnesium oxide 20 mg PO BID 11/18/17 [History Last Taken 04/13/19] buspirone 15 mg PO BID 07/29/18 [History Last Taken 04/13/19] [id number] 1 puff INHALATION DAILY 09/15/18 [History Last Taken 04/13/19] metoprolol succinate 50 mg PO BID 09/15/18 [History Last Taken 04/13/19] dicyclomine 10 mg PO ACHS PRN 04/13/19 [History Last Taken 04/13/19] lisinopril 5 mg PO DAILY 04/13/19 [History Last Taken 04/13/19] metoclopramide HCl 5 mg PO TID PRN 04/13/19 [History Last Taken 04/13/19] mirabegron 50 mg PO QHS 04/13/19 [History Last Taken 04/13/19] sucralfate 1 g PO 1HR_ACHS 04/13/19 [History Last Taken 04/13/19] albuterol sulfate 2.5 mg INHALATION Q2H PRN PRN vial.neb. 04/17/19 [Rx Last Taken Unknown] acetaminophen 1,000 mg PO BID 02/11/20 [History Last Taken Unknown] insulin glargine 24 units SC BID 02/11/20 [History Last Taken Unknown] potassium chloride 20 meq PO BID 02/11/20 [History Last Taken Unknown] allopurinol 300 mg PO LUNCH 02/12/20 [History Last Taken Unknown] ferrous sulfate 325 mg PO QODAY 02/12/20 [History Last Taken Unknown] guaifenesin 1.5 tab PO BID 02/12/20 [History Last Taken Unknown] lorazepam 0.5 mg PO PRN PRN 02/12/20 [History Last Taken Unknown] metformin 1,000 mg PO QHS 02/12/20 [History Last Taken Unknown] methocarbamol 500 mg PO BID PRN 02/12/20 [History Last Taken Unknown] Aciphex 20 mg PO DAILY 05/12/20 [History Last Taken Unknown] Lantus Solostar 24 units SQ BID 05/12/20 [History Last Taken Unknown] Loperamide 2 mg PO PRN PRN 05/12/20 [History Last Taken Unknown] Novolog Flexpen 12 units SQ TID 05/12/20 [History Last Taken Unknown] Ondansetron 4 mg PO PRN PRN 05/12/20 [History Last Taken Unknown] Victoza 20 units SQ LUNCH 05/12/20 [History Last Taken Unknown] aspirin 81 mg tablet,delayed release 81 mg PO DAILY 10/06/20 [History Last Taken Unknown] metolazone 2.5 mg tablet 2.5 mg PO DAILY #30 tab 11/21/20 [Rx Last Taken Unknown] spironolactone 50 mg tablet 50 mg PO DAILY #30 tab 11/21/20 [Rx Last Taken Unknown] furosemide 40 mg tablet 40 mg PO BID #60 tab 11/22/20 [Rx Last Taken Unknown] clindamycin HCl 300 mg capsule 300 mg PO BID 7 Days #14 cap 11/23/20 [Rx Last Taken Unknown] Allergy/AdvReac Type Severity Reaction Status Date / Time adhesive Allergy Itching Verified 11/23/20 10:14 adhesive tape Allergy Rash Verified 11/23/20 10:14 amoxicillin trihydrate Allergy Hives Verified 11/23/20 10:14 [From Augmentin] Antihistamines - Alkylamine Allergy Other Verified 11/27/20 11:11 Iodinated Contrast Media Allergy Anaphylaxis Verified 11/23/20 10:14 [Iodinated Contrast- Oral and IV Dye] latex Allergy Rash Verified 11/23/20 10:14 Latex, Natural Rubber Allergy Rash Verified 11/23/20 10:14 metronidazole [From Flagyl] Allergy Hives Verified 11/23/20 10:14 Metronidazole HCl Allergy Hives Verified 11/23/20 10:14 [From Flagyl] Penicillins [PCN] Allergy Hives Verified 11/23/20 10:14 potassium clavulanate Allergy Hives Verified 11/23/20 10:14 [From Augmentin] sulfamethoxazole Allergy Hives Verified 11/23/20 10:14 [From Bactrim] trimethoprim [From Bactrim] Allergy Hives Verified 11/23/20 10:14 diphenhydramine HCl AdvReac i could Verified 11/23/20 10:14 [From Benadryl] crawl to the ceiling/diaphoresis/tremor omeprazole AdvReac Nausea Verified 11/23/20 10:14 promethazine HCl AdvReac Nausea Verified 11/23/20 10:14 [From Phenergan] antihistamine Allergy i could Uncoded 11/23/20 10:14 crawl to the ceiling/sleepy/disoriented Family History Brother , history of sudden cardiac CAD (coronary artery disease) CVA (cerebral vascular accident) Brother Sudden cardiac Brother CAD (coronary artery disease) Mother Heart disease Father Brain aneurysm Surgical History H/O hemorrhoidectomy History of esophagogastroduodenoscopy (EGD) (~02/15/20) History of left heart catheterization (2003) History of tonsillectomy S/P wrist surgery Social History Smoking Status: Former smoker alcohol intake: never substance use type: does not use ROS ROS ED ROS Narrative Nonproductive cough. Shortness of breath. Review of Systems ROS Unobtainable: Denies due to encephalopathy Constitutional Constitutional ED: Denies chills or fever(s) Eyes Eyes: Denies change in vision ENT ENT ED: Denies ear pain or sore throat Cardiovascular Cardiovascular: Denies chest pain Respiratory/Chest Respiratory/Chest: Reports cough and dyspnea Gastrointestinal Gastrointestinal: Denies abdominal pain, diarrhea, nausea or vomiting Genitourinary Genitourinary ED: Reports dysuria Musculoskeletal Musculoskeletal: Denies arthralgias or myalgias Integumentary Denies abscess or rash Neurologic Neurologic: Denies headache(s) or weakness Psychiatric Psychiatric: Denies anxiety or depression Endocrine Endocrinology: Denies polydipsia or polyuria Hematologic/Lymphatic Hematologic/Lymphatic: Denies easy bruising Allergic/Immunologic Allergic/Immunologic ED: Denies mouth swelling or urticaria EXAM Physical Exam Narrative Exam Narrative: Older female currently on BiPAP. Vital signs are stable. On BiPAP she is 99%. She does not look septic or toxic. She is actually tolerating this very well and is done this multiple times in the past. Neck nontender no JVD. Lungs coarse breath sounds bilaterally. No rales or rhonchi. Heart regular rhythm rate in the 80s. No murmur. Abdomen soft nontender. Moving all 4 extremities. She does have 1+ pitting edema both lower legs. Neurologically she is awake and alert. Answering questions and following commands. Moving all 4 extremities. Const Vital Signs: 11/27/20 11:11 11/27/20 11:58 11/27/20 12:27 Temperature 96.7 F L Temperature Source Temporal Pulse Rate 83 69 Respiratory Rate 21 H 18 Respiratory Effort Short of Breath Respiratory Pattern Blood Pressure 154/65 H Blood Pressure Mean 94 Pulse Ox 97 97 97 Oxygen Delivery Method Bi-pap Bi-pap Nasal Cannula Oxygen Flow Rate (L/min) 3.5 Fraction of Inspired Oxygen (FIO2) 30 30 11/27/20 14:12 11/27/20 14:17 Temperature Temperature Source Pulse Rate 73 Respiratory Rate 20 H Respiratory Effort Respiratory Pattern Hyperpnea Blood Pressure Blood Pressure Mean Pulse Ox 93 Oxygen Delivery Method Nasal Cannula Oxygen Flow Rate (L/min) 4 Fraction of Inspired Oxygen (FIO2) Positive well nourished, well developed and obese; Negative for cachectic, contractures or unkempt General Appearance ED: well developed; Negative for unkempt, cachectic, contractures, NAD or pallor Nutritional Appearance: obese; Negative for cachectic HEENT Reports moist mucous membranes atraumatic; Negative for trauma or tenderness Eyes PERRL and EOMs intact bilaterally Neck no lymphadenopathy, supple, no meningeal signs and no JVD General: Negative for tenderness Resp normal respiratory effort and No clear to auscultation bilaterally Auscultation: wheezes Cardio regular rate, regular rhythm, S1 normal heart sound, S2 normal heart sound and no murmurs GI non-tender, non-distended and no masses Auscultation: normoactive bowel sounds Palpation: soft; Negative for tender or guarding Back/Spine normal to inspection; Negative for no CVA tenderness General Back: Negative for CVA tenderness Extremity normal to inspection General Extremety ED: Yes edema; Negative for tenderness General Extremity: edema Neuro oriented x3 Sensorium / Orientation: alert, oriented to person, oriented to place and oriented to time; Negative for orientation impaired, confused, lethargic or stuporous Motor Exam: strength 5/5 throughout Psych mental status grossly normal Appearance: Negative for unkempt Skin no wounds and skin turgor normal General Skin Exam: Negative for jaundice or pallor Lesions: no lesions Rashes: no rashes and No rashes noted MDM MDM MDM Narrative Medical decision making narrative: Older female known history of COPD, CHF and valvular heart disease. Currently on BiPAP. Undergo thorough evaluation and need admitted. Treated with aerosols and Solu-Medrol IV. Repeat exam patient is improved she is currently off the BiPAP and is on nasal cannula O2. She denies discussed her test results. Urine culture will be sent but I am not treating her with any antibiotics at this time. She will be given Lasix also for pulmonary edema. I have the hospitalist on page for admission. Lab Data Attestation: I reviewed the patient's lab results. Lab results narrative: CBC shows white count 5.8. Hemoglobin of 9.4 Electrolytes show a gap of 3 BUN 25 creatinine of 1. BNP is slightly elevated at 240. Troponin is normal. Urinalysis shows night traits plus bacteria but the is no white cells so a urine culture will be sent. Labs: Laboratory Results - last 24 hr 11/27/20 11/27/20 11/27/20 11:22 11:22 11:22 WBC 5.8 RBC 3.11 L Hgb 9.4 L Hct 32.0 L MCV 102.9 H MCH 30.2 MCHC 29.4 L RDW Std Deviation 59.1 H RDW Coeff of Camilla 15.7 H Plt Count 220 MPV 11.2 Immature Gran % (Auto) 0.500 Neut % (Auto) 73.5 H Lymph % (Auto) 16.8 L [place] % (Auto) 5.5 Eos % (Auto) 3.4 Baso % (Auto) 0.3 Absolute Neuts (auto) 4.3 Absolute Lymphs (auto) 0.98 Nucleated RBC % 0 Sodium 142 Potassium 5.0 Chloride 106 Carbon Dioxide 33.0 H Anion Gap 3 L BUN 25 H Creatinine 1.04 H Estim Creat Clear Calc 35.81 Est GFR (MDRD) Af Amer 67 Est GFR (MDRD) Non-Af 55 L BUN/Creatinine Ratio 24.0 H Glucose 127 H Calcium 8.8 Total Bilirubin 0.40 AST 76 H ALT 49 Alkaline Phosphatase 171 H Troponin I High Sens 8 B-Natriuretic Peptide 240.7 H Total Protein 6.9 Albumin 3.1 L Globulin 3.8 Albumin/Globulin Ratio 0.8 L Urine Color Urine Clarity Urine pH Ur Specific [place] Urine Protein Urine Glucose (UA) Urine Ketones Urine Occult Blood Urine Nitrite Urine Bilirubin Urine Urobilinogen Ur Leukocyte Esterase Urine RBC Urine WBC Ur Squamous Epith Cells Urine Bacteria Urine Mucus 11/27/20 14:15 WBC RBC Hgb Hct MCV MCH MCHC RDW Std Deviation RDW Coeff of [place]illa Plt Count MPV Immature Gran % (Auto) Neut % (Auto) Lymph % (Auto) [place] % (Auto) Eos % (Auto) Baso % (Auto) Absolute Neuts (auto) Absolute Lymphs (auto) Nucleated RBC % Sodium Potassium Chloride Carbon Dioxide Anion Gap BUN Creatinine Estim Creat Clear Calc Est GFR (MDRD) Af Amer Est GFR (MDRD) Non-Af BUN/Creatinine Ratio Glucose Calcium Total Bilirubin AST ALT Alkaline Phosphatase Troponin I High Sens B-Natriuretic Peptide Total Protein Albumin Globulin Albumin/Globulin Ratio Urine Color Yellow Urine Clarity Sl. Cloudy Urine pH 6.0 Ur Specific [place] 1.010 Urine Protein Negative Urine Glucose (UA) Normal Urine Ketones Negative Urine Occult Blood Negative Urine Nitrite Positive H Urine Bilirubin Negative Urine Urobilinogen Normal Ur Leukocyte Esterase 25 H Urine RBC 0 SEEN Urine WBC 0-5 SEEN Ur Squamous Epith Cells 0-5 SEEN Urine Bacteria 2+ Urine Mucus 0 SEEN Radiography Chest X-Ray - ED: 1 View, Read by ED Physician, Heart, Lungs, Mediastinum, Bony Structures and Chronic Changes Diagnostic Testing: Radiology Impression Chest X-Ray 11/27/20 11:23 IMPRESSION: Bilateral lung densities consistent with pneumonia/pulmonary edema. at 1242 Reported and signed by: Pete Beltran MD Electronically Signed: Pete Beltran MD at 12:41 EDT Tel , Service support , Chest x-ray most likely is pulmonary edema in the lower lung ortega cannot rule out infiltrates. Rhythm Strip Rhythm Strip: Sinus Rhythm Rate: 73 Ectopy: None EKG Initial EKG: Attestation: I personally reviewed and interpreted this EKG as follows: Interpretation: Sinus Rhythm and No Acute Injury Pattern Comments: Normal sinus rhythm rate of 73 no acute signs of RI or ischemia. No significant change from September 2018. Prior: Unchanged Discharge Plan Triage Chief Complaint: Shortness of Breath ED Provider: Carter Oliver Dx/Rx/DC Orders Clinical Impression: COPD (chronic obstructive pulmonary disease), CHF (congestive heart failure), Acute on chronic anemia Prescriptions: No Action aspirin [Adult Aspirin Regimen] 81 mg tablet,delayed release (DR/EC) 81 mg PO DAILY RF: 0 clindamycin HCl 300 mg capsule 300 mg PO BID 7 Days Qty: 14 RF: 0 sertraline 100 MG tablet 200 mg PO QHS RF: 0 levothyroxine 25 MCG tablet 25 mcg PO DAILY RF: 0 montelukast 10 MG tablet 10 mg PO QHS RF: 0 albuterol sulfate 1 INHALER inhaler 2 puff INHALATION Q6H PRN PRN (Reason: Wheezing) RF: 0 fluticasone propionate 1 SPRAY spray,suspension 2 spray NASAL QHS PRN (Reason: Allergies) RF: 0 pregabalin 50 MG capsule 50 mg PO TID RF: 0 atorvastatin 40 MG tablet 40 mg PO QHS RF: 0 trazodone 100 MG tablet 150 mg PO QHS RF: 0 multivitamin 1 EACH tablet 1 tab PO DAILY RF: 0 magnesium oxide 400 MG tablet 20 mg PO BID RF: 0 buspirone 15 MG tablet 15 mg PO BID RF: 0 metoprolol succinate 50 MG tablet extended release 24 hr 50 mg PO BID RF: 0 [id number]-hyeebihtn-[id number] 1 EACH blister with device 1 puff INHALATION DAILY RF: 0 lisinopril 5 MG tablet 5 mg PO DAILY RF: 0 metoclopramide HCl 5 MG tablet 5 mg PO TID PRN (Reason: Nausea) RF: 0 dicyclomine 10 MG capsule 10 mg PO ACHS PRN (Reason: Irritable Bowel Syndrome) RF: 0 mirabegron 25 MG tablet extended release 24 hr 50 mg PO QHS RF: 0 sucralfate 1 GM tablet 1 g PO 1HR_ACHS RF: 0 albuterol sulfate 2.5 MG/3 ML solution for nebulization 2.5 mg INHALATION Q2H PRN PRN (Reason: SHORTNESS OF BREATH) RF: 0 Aciphex 20 mg PO DAILY RF: 0 Victoza 20 units SQ LUNCH RF: 0 Lantus Solostar 24 units SQ BID RF: 0 Novolog Flexpen 12 units SQ TID RF: 0 Ondansetron 4 mg PO PRN PRN (Reason: Nausea) RF: 0 Loperamide 2 mg PO PRN PRN (Reason: Heartburn Or Indigestion) RF: 0 acetaminophen 325 MG tablet 1,000 mg PO BID RF: 0 potassium chloride 20 MEQ tablet 20 meq PO BID RF: 0 insulin glargine 100 UNITS/ML insulin pen 24 units SC BID RF: 0 methocarbamol 500 MG tablet 500 mg PO BID PRN (Reason: nerve pain) RF: 0 lorazepam 0.5 MG tablet 0.5 mg PO PRN PRN (Reason: Anxiety) RF: 0 ferrous sulfate 325 MG tablet 325 mg PO QODAY RF: 0 metformin 1,000 MG tablet 1,000 mg PO QHS RF: 0 allopurinol 300 MG tablet 300 mg PO LUNCH RF: 0 guaifenesin 600 MG tablet extended release 12hr 1.5 tab PO BID RF: 0 spironolactone 50 mg tablet 50 mg PO DAILY Qty: 30 RF: 3 metolazone 2.5 mg tablet 2.5 mg PO DAILY Qty: 30 RF: 3 furosemide 40 mg tablet 40 mg PO BID Qty: 60 RF: 3 Primary Care Provider: Zabrina Bain Referrals: Zabrina Bain MD [Primary Care Provider] - Disposition Disposition: Acute Care [facility]
[2020-11-27 11:38] LABS: Absolute Lymphocyte Count 0.98 X10^3/uL (0.83-4.51); Absolute Neutrophil Count 4.3 X10^3/uL (2.0-7.7); Basophil# 0.02 X10^3/uL; Basophil% 0.3 % (0-1); Eosinophils% 3.4 % (0-5); Hemoglobin 9.4 g/dL (12.0-15.0); Lymphocyte # 0.98 X10^3/ul (0.83-4.51); Lymphocyte % 16.8 % (19-41); Mean Corp Hgb Conc 29.4 g/dL (32-36); Mean Corpuscular Hgb 30.2 pg (27.0-32.0); Mean Corpuscular Volume 102.9 fL (81-99); Mean Platelet Vol. 11.2 fl (6.2-12.0); Monocyte# 0.32 X10^3/uL; Monocyte% 5.5 % (0-10); NRBC Flagged by Analyzer 0 % (0-5); Neutrophil # 4.29 X10^3/uL (2.7-7.7); Neutrophil % 73.5 % (47-70); Platelet Count 220 K/mm3 (150-450); RBC Distribution Width CV 15.7 % (11.6-14.6); RBC Distribution Width SD 59.1 fl (35.1-43.9); Red Blood Count 3.11 M/mm3 (4.2-5.4); White Blood Count 5.8 K/mm3 (4.4-11.0)
[2020-11-27] MEDS: Ipratropium/Albuterol Sulfate 3 ML AMPUL.NEB INHALATION (11:52)
[2020-11-27 11:55] LABS: BNP,B-Type NATRIURETIC PEPTIDE 240.7 pg/mL (0-100)
[2020-11-27 11:57] LABS: ALB/GLOB Ratio 0.8 RATIO (0.9-2.4); AST(SGOT) 76 U/L (15-37); Alanine Aminotransfer ALT/SGPT 49 U/L (13-56); Albumin, Serum 3.1 g/dL (3.2-5.0); Alkaline Phosphatase 171 U/L (45-117); Anion Gap 3 (5-15); BUN 25 mg/dL (7-18); Calcium,Total 8.8 mg/dL (8.5-10.1); Chloride 106 mmol/L (98-107); Creatinine, Serum 1.04 mg/dL (0.55-1.02); EST Glomerular Filtration Rate 55 mL/min (>60); Est Glom Filt Rate - Afr Amer 67 mL/min (>60); Estimated Creatinine Clearance 35.81 ml/min; Globulin 3.8 g/dL (2.2-4.2); Glucose 127 mg/dL (74-106); Protein, Total 6.9 g/dL (6.4-8.2); Sodium Level 142 mmol/L (136-145); Troponin-I HS 8 pg/mL (3.0-54.0)
[2020-11-27] MEDS: Albuterol 2.5 MG/3 ML VIAL.NEB. INHALATION ×2 (12:05→14:12)
--- NOTE | 2020-11-27 12:25 | CPS ---
Patient taken off bipap at this time, placed on 3.5lpm as at home. and RN aware.
[2020-11-27] MEDS: MethylPREDNISolone 125 MG/2 ML Vial IV (12:47)
[2020-11-27] MEDS: Ondansetron 4 MG/2 ML Vial IV (12:48)
[2020-11-27 14:21] LABS: Mucous, Urine 0 SEEN /hpf (<or=2+); Red Blood Cells-Urine 0 SEEN /hpf (0-5)
[2020-11-27 14:25] LABS: Color, Urine Yellow (Yellow); Glucose, Dipstick Normal (Normal); Ketone-Dipstick Negative (Negative); Leukocyte Esterase-Dipstick 25 /ul (Negative); Nitrite-Dipstick Positive (Negative); Occult Blood-Urine Negative /ul (Negative); Protein-Dipstick Negative (Negative); Urine Bilirubin Dipstick Negative (Negative); Urine Clarity Sl. Cloudy (Clear); Urine Urobilinogen Normal (Normal)
[2020-11-27 14:33] LABS: Bacteria 2+ /hpf (None Seen); Squamous Epithelial Cells - UA 0-5 SEEN /hpf (5-10); White Blood Cells 0-5 SEEN /hpf (0-5)
--- NOTE | 2020-11-27 15:54 | NURSING ---
DR GUANACO KNUTSON
--- NOTE | 2020-11-27 16:00 | NURSING ---
PCU OBS [facility] COPD, CHF
[2020-11-27 16:10] LABS: Bedside Glucose 151 mg/dL (70-110)
[2020-11-27] MEDS: Furosemide 100 MG/10 ML Vial 60 MG IV (16:29)
--- NOTE | 2020-11-27 19:04 | PCM.HP.STD ---
HPI - General General Date of Admission: 11/27/20 Date of Service: 11/27/20 Chief Complaint: Progressive SOB ongoing for 1 and half months, worsened over the past 1 week HPI Narrative DAMION OROZCO, is a 75 F who presents with progressive shortness of breath ongoing for several weeks, worse over the past 1 week. She denied any chest pain or fever or chills. She has history of non-Hodgkin's lymphoma in remission. She is usually on 3 and half liters of oxygen at home and has trilogy at night. Patient's vitals were stable in the ED. Chest X ray shows bilateral lung density consistent with pneumonia/pulmonary edema. BNpep 240.7 His WBC count was normal at 5.8 EKG shows normal sinus rhythm, no acute ST changes, QTC is 418 PFSH Medical History Abdominal pain Abrasion of second toe, right Acute diastolic CHF (congestive heart failure) Anxiety Bilateral macrostomia Breast hematoma Breast pain, left Cancer Chronic neck and back pain Chronic obstructive pulmonary disease Contusion of second toe, right Degeneration of intervertebral disc of lumbosacral region Depression Diabetes mellitus, type II Diarrhea Difficulty balancing when standing Diverticulosis Edema of left lower extremity Essential (primary) hypertension Excoriation Fatigue Fatty liver disease, nonalcoholic GERD (gastroesophageal reflux disease) Gout of left foot Hyperlipidemia Hypothyroidism IBS (irritable bowel syndrome) Injury of right great toe Limb weakness Lumbar spinal stenosis Morbid obesity Neck pain Non Hodgkin's lymphoma Nonrheumatic aortic valve stenosis Obstructive sleep apnea On home oxygen therapy Pain in left ankle and joints of left foot Positive H. pylori test Primary osteoarthritis of right hip Pseudomonas aeruginosa infection Radiculopathy of lumbosacral region Right buttock pain Right-sided heart failure Secondary pulmonary arterial hypertension Sjogren's syndrome Skin abrasion Spinal stenosis of lumbosacral region Spondylosis of lumbosacral region without myelopathy or radiculopathy Spondylosis of lumbosacral region without myelopathy or radiculopathy Tinea unguium Type 2 diabetes mellitus with diabetic polyneuropathy Home Medications albuterol sulfate 2 puff INHALATION Q6H PRN PRN 06/29/14 [History Last Taken 04/12/19] levothyroxine 25 mcg PO DAILY 06/29/14 [History Last Taken 04/13/19] montelukast 10 mg PO QHS 06/29/14 [History Last Taken 04/13/19] sertraline 200 mg PO QHS 06/29/14 [History Last Taken 04/12/19] atorvastatin 40 mg PO QHS 09/18/15 [History Last Taken 04/12/19] fluticasone propionate 2 spray NASAL QHS PRN 09/18/15 [History Last Taken 04/12/19] pregabalin 50 mg PO TID 09/18/15 [History Last Taken 04/13/19] trazodone 150 mg PO QHS 11/26/16 [History Last Taken 04/12/19] multivitamin 1 tab PO DAILY 10/11/17 [History Last Taken 04/13/19] magnesium oxide 20 mg PO BID 11/18/17 [History Last Taken 04/13/19] buspirone 15 mg PO BID 07/29/18 [History Last Taken 04/13/19] jgwypnijfgn-fwdqgebcv-gevxcvog 1 puff INHALATION DAILY 09/15/18 [History Last Taken 04/13/19] metoprolol succinate 50 mg PO BID 09/15/18 [History Last Taken 04/13/19] dicyclomine 10 mg PO ACHS PRN 04/13/19 [History Last Taken 04/13/19] lisinopril 5 mg PO DAILY 04/13/19 [History Last Taken 04/13/19] metoclopramide HCl 5 mg PO TID PRN 04/13/19 [History Last Taken 04/13/19] mirabegron 50 mg PO QHS 04/13/19 [History Last Taken 04/13/19] sucralfate 1 g PO 1HR_ACHS 04/13/19 [History Last Taken 04/13/19] albuterol sulfate 2.5 mg INHALATION Q2H PRN PRN vial.neb. 04/17/19 [Rx Last Taken Unknown] acetaminophen 1,000 mg PO BID 02/11/20 [History Last Taken Unknown] insulin glargine 24 units SC BID 02/11/20 [History Last Taken Unknown] potassium chloride 20 meq PO BID 02/11/20 [History Last Taken Unknown] allopurinol 300 mg PO LUNCH 02/12/20 [History Last Taken Unknown] ferrous sulfate 325 mg PO QODAY 02/12/20 [History Last Taken Unknown] guaifenesin 1.5 tab PO BID 02/12/20 [History Last Taken Unknown] lorazepam 0.5 mg PO PRN PRN 02/12/20 [History Last Taken Unknown] metformin 1,000 mg PO QHS 02/12/20 [History Last Taken Unknown] methocarbamol 500 mg PO BID PRN 02/12/20 [History Last Taken Unknown] Aciphex 20 mg PO DAILY 05/12/20 [History Last Taken Unknown] Lantus Solostar 24 units SQ BID 05/12/20 [History Last Taken Unknown] Loperamide 2 mg PO PRN PRN 05/12/20 [History Last Taken Unknown] Novolog Flexpen 12 units SQ TID 05/12/20 [History Last Taken Unknown] Ondansetron 4 mg PO PRN PRN 05/12/20 [History Last Taken Unknown] Victoza 20 units SQ LUNCH 05/12/20 [History Last Taken Unknown] aspirin 81 mg tablet,delayed release 81 mg PO DAILY 10/06/20 [History Last Taken Unknown] metolazone 2.5 mg tablet 2.5 mg PO DAILY #30 tab 11/21/20 [Rx Last Taken Unknown] spironolactone 50 mg tablet 50 mg PO DAILY #30 tab 11/21/20 [Rx Last Taken Unknown] furosemide 40 mg tablet 40 mg PO BID #60 tab 11/22/20 [Rx Last Taken Unknown] clindamycin HCl 300 mg capsule 300 mg PO BID 7 Days #14 cap 11/23/20 [Rx Last Taken Unknown] Allergy/AdvReac Type Severity Reaction Status Date / Time adhesive Allergy Itching Verified 11/23/20 10:14 adhesive tape Allergy Rash Verified 11/23/20 10:14 amoxicillin trihydrate Allergy Hives Verified 11/23/20 10:14 [From Augmentin] Antihistamines - Alkylamine Allergy Other Verified 11/27/20 11:11 Iodinated Contrast Media Allergy Anaphylaxis Verified 11/23/20 10:14 [Iodinated Contrast- Oral and IV Dye] latex Allergy Rash Verified 11/23/20 10:14 Latex, Natural Rubber Allergy Rash Verified 11/23/20 10:14 metronidazole [From Flagyl] Allergy Hives Verified 11/23/20 10:14 Metronidazole HCl Allergy Hives Verified 11/23/20 10:14 [From Flagyl] Penicillins [PCN] Allergy Hives Verified 11/23/20 10:14 potassium clavulanate Allergy Hives Verified 11/23/20 10:14 [From Augmentin] sulfamethoxazole Allergy Hives Verified 11/23/20 10:14 [From Bactrim] trimethoprim [From Bactrim] Allergy Hives Verified 11/23/20 10:14 diphenhydramine HCl AdvReac i could Verified 11/23/20 10:14 [From Benadryl] crawl to the ceiling/diaphoresis/tremor omeprazole AdvReac Nausea Verified 11/23/20 10:14 promethazine HCl AdvReac Nausea Verified 11/23/20 10:14 [From Phenergan] antihistamine Allergy i could Uncoded 11/23/20 10:14 crawl to the ceiling/sleepy/disoriented Family History Brother , history of sudden cardiac CAD (coronary artery disease) CVA (cerebral vascular accident) Brother Sudden cardiac Brother CAD (coronary artery disease) Mother Heart disease Father Brain aneurysm Surgical History H/O hemorrhoidectomy History of esophagogastroduodenoscopy (EGD) (~02/15/20) History of left heart catheterization (2003) History of tonsillectomy S/P wrist surgery Social History Smoking Status: Former smoker alcohol intake: never substance use type: does not use ROS ROS Narrative Constitutional: Denies: Anorexia, Chills, Fever, Night Sweats, Weight Change, Malaise, Weakness, Fatigue. Eyes: Denies: Blurred vision, Cataracts, Conjunctivae Inflammation, Pain, Redness, Vision Change HEENT: Denies: Difficulty Hearing, Difficulty Swallowing, Head Aches, Hearing Changes, Sinus Congestion, Sinus Drainage Cardiovascular: Denies: Chest Pain, Orthopnea, Palpitations Respiratory: See HPI Gastrointestinal: Denies: Abdominal Pain, Nausea, Vomiting Genitourinary: Denies: Dysuria Musculoskeletal: Denies: Joint Pain, Joint stiffness, Joint swelling, Joint Tenderness Skin: Denies: Rash, Wounds Neurological: Denies: Numbness, Tingling, Focal weakness Vital Signs Vital Signs Vital Signs: 11/27/20 11:11 11/27/20 11:58 11/27/20 12:27 Temperature 96.7 F L Temperature Source Temporal Pulse Rate 83 69 Respiratory Rate 21 H 18 Respiratory Effort Short of Breath Respiratory Depth Respiratory Pattern Blood Pressure 154/65 H Blood Pressure Mean 94 Blood Pressure Source Blood Pressure Position Blood Pressure Location Pulse Ox 97 97 97 Oxygen Delivery Method Bi-pap Bi-pap Nasal Cannula Oxygen Flow Rate (L/min) 3.5 Fraction of Inspired Oxygen (FIO2) 30 30 11/27/20 14:12 11/27/20 14:17 11/27/20 16:34 Temperature 98 F Temperature Source Temporal Pulse Rate 73 88 Respiratory Rate 20 H 17 Respiratory Effort Respiratory Depth Respiratory Pattern Hyperpnea Blood Pressure 144/83 H Blood Pressure Mean 103 Blood Pressure Source Blood Pressure Position Blood Pressure Location Pulse Ox 93 96 Oxygen Delivery Method Nasal Cannula Nasal Cannula Oxygen Flow Rate (L/min) 4 2 Fraction of Inspired Oxygen (FIO2) 11/27/20 17:38 11/27/20 17:42 11/27/20 18:30 Temperature 98.0 F 98.1 F Temperature Source Oral Oral Pulse Rate 91 90 Respiratory Rate 24 H 22 H Respiratory Effort Short of Breath Respiratory Depth Deep Respiratory Pattern Tachypnea Blood Pressure 147/74 H 145/70 H Blood Pressure Mean 98 95 Blood Pressure Source Monitor Monitor Blood Pressure Position Semi-Fowlers Semi-Fowlers Blood Pressure Location Left Forearm Left Forearm Pulse Ox 92 92 Oxygen Delivery Method Nasal Cannula Nasal Cannula Nasal Cannula Oxygen Flow Rate (L/min) 2.5 2.5 Fraction of Inspired Oxygen (FIO2) Weight Weight: 112.1 kg Body Mass Index (BMI) 46.7 Physical Exam Narrative Physical exam: General: Alert, Oriented x3, Cooperative, No apparent distress, morbidly obese on home 3.5 L of oxygen HEENT: Atraumatic Oral: Moist Mucosa Neck: Supple Lungs: Diminished to auscultation, scattered wheezes Cardiovascular: HS I+II, regular, no murmurs Abdomen: Bowel Sounds Present, Soft, Non Tender Extremities: Bilateral pedal edema +1 Results Lab / Micro Data Result Diagrams: 11/27/20 11:22 11/27/20 11:22 Labs: Laboratory Results - last 24 hr 11/27/20 11:22: WBC 5.8, RBC 3.11 L, Hgb 9.4 L, Hct 32.0 L, MCV 102.9 H, MCH 30.2, MCHC 29.4 L, RDW Std Deviation 59.1 H, RDW Coeff of Camilla 15.7 H, Plt Count 220, MPV 11.2, Immature Gran % (Auto) 0.500, Neut % (Auto) 73.5 H, Lymph % (Auto) 16.8 L, [place] % (Auto) 5.5, Eos % (Auto) 3.4, Baso % (Auto) 0.3, Absolute Neuts (auto) 4.3, Absolute Lymphs (auto) 0.98, Nucleated RBC % 0 11/27/20 11:22: Sodium 142, Potassium 5.0, Chloride 106, Carbon Dioxide 33.0 H, Anion Gap 3 L, BUN 25 H, Creatinine 1.04 H, Estim Creat Clear Calc 35.81, Est GFR (MDRD) Af Amer 67, Est GFR (MDRD) Non-Af 55 L, BUN/Creatinine Ratio 24.0 H, Glucose 127 H, Calcium 8.8, Total Bilirubin 0.40, AST 76 H, ALT 49, Alkaline Phosphatase 171 H, Troponin I High Sens 8, Total Protein 6.9, Albumin 3.1 L, Globulin 3.8, Albumin/Globulin Ratio 0.8 L 11/27/20 11:22: B-Natriuretic Peptide 240.7 H 11/27/20 14:15: Urine Color Yellow, Urine Clarity Sl. Cloudy, Urine pH 6.0, Ur Specific [place] 1.010, Urine Protein Negative, Urine Glucose (UA) Normal, Urine Ketones Negative, Urine Occult Blood Negative, Urine Nitrite Positive H, Urine Bilirubin Negative, Urine Urobilinogen Normal, Ur Leukocyte Esterase 25 H, Urine RBC 0 SEEN, Urine WBC 0-5 SEEN, Ur Squamous Epith Cells 0-5 SEEN, Urine Bacteria 2+, Urine Mucus 0 SEEN 11/27/20 16:06: POC Glucose 151 H Micro: Microbiology 11/27/20 12:25 Nasal Secretion SARS-CoV-2 Antigen (Rapid) - Final Rhythm Strip Rhythm Strip: Sinus Rhythm Rate: 73 Ectopy: None Radiology Impression Chest X-Ray 11/27/20 11:23 IMPRESSION: Bilateral lung densities consistent with pneumonia/pulmonary edema. at 1242 Reported and signed by: Pete Beltran MD Electronically Signed: Pete Beltran MD at 12:41 EDT Tel , Service support , Assessment & Plan Assessment/Plan (1) Acute diastolic CHF (congestive heart failure): (2) Acute exacerbation of COPD with asthma: (3) Obstructive sleep apnea: (4) Chronic obstructive pulmonary disease: QUALIFIERS: COPD type: COPD with acute exacerbation Qualified Code(s): J44.1 - Chronic obstructive pulmonary disease with (acute) exacerbation (5) Right-sided heart failure: QUALIFIERS: Heart failure chronicity: acute on chronic Qualified Code(s): I50.813 - Acute on chronic right heart failure (6) Essential (primary) hypertension: (7) Secondary pulmonary arterial hypertension: PLAN: 1. Acute on chronic combined respiratory failure secondary to acute COPD exacerbation /acute exacerbation of heart failure preserved EF/severe pulmonary hypertension Patient is morbidly obese, on 3.5 L of oxygen at home, trilogy at night Admitting chest x-ray showed pulmonary edema Doubt acute pneumonia as patient has no fever and no leukocytosis Will continue on Lasix 40 mg every 8h, IV Solu-Medrol 40 mg every 8h, breathing treatments, azithromycin IV We will get 2D echo as one has not been done recently 2. Rest of chronic medical condition including type II DM, SCOTTY on trilogy, hyperlipidemia, GERD, hypothyroidism, anxiety/depression, non-Hodgkin's lymphoma in remission I discussed and explained in details the various types of CODE STATUS-full code, DNR CCA, DNR CC. Patient chose to be full code. She wants everything done to keep her alive. Time spent discussing CODE STATUS 18 minutes Charges/Coding Visit Charges Inpatient E&M: 48732 Init Hosp L3 Procedures Hospitalists Procedures: 85802 Advncd Care Plan 30 Min
--- NOTE | 2020-11-27 19:27 | ECHOD_ITS ---
Reason For Study: Dyspnea/SOB Procedure This was a 2D Doppler, Color Flow transthoracic echocardiogram. Techncially difficult study, unable to utilize Definity due to increased pulmonary pressures. Exam performed portable in patient room. Left Ventricle Normal LV size. Severe concentric left ventricular hypertrophy. Left ventricular systolic function is normal. The estimated ejection fraction is 65 %. Stage 2 diastolic dysfunction. No regional wall motion abnormalities noted. Right Ventricle Normal RV size. Normal systolic function. Atria Normal left atrium. Normal right atrium. Mitral Valve Normal mitral valve. Mild (1+) eccentric mitral valve insufficiency. Tricuspid Valve Normal tricuspid valve. Moderate (2+) tricuspid valve insufficiency. Moderate pulmonary hypertension. Pulmonary artery systolic pressure is 66 mmHg. Aortic Valve Trisinus/trileaflet aortic valve. Mild focal aortic valve calcification. Peak aortic valve gradient 22 mmHg. Mean aortic valve gradient 11 mmHg. Great Vessels Normal aortic root. The pulmonary artery is normal size. Normal inferior vena cava. Pericardium/Pleural No pericardial effusion. MMode/2D Measurements & Calculations LVIDd: 3.9 cm IVSd: 2.1 cm LVOT diam: 2.0 cm LVIDs: 2.2 cm LVPWd: 1.9 cm LVOT area: 3.1 cm2 FS: 44.8 % Ao root diam: 3.1 cm LAV(MOD-bp): 54.9 ml LA A4 area: 20.7 cm2 LAV(MOD-bp) Indexed: 26.6 ml/m2 LAV(MOD-sp2): 46.3 ml LAV(MOD-sp4): 58.6 ml RA A4 area: 20.3 cm2 Time Measurements MV dec time: 0.22 sec Doppler Measurements & Calculations MV E max evangelista: 209.2 cm/sec Lat Peak E' Evangelista: 6.8 cm/sec Med Peak E' Evangelista: 7.0 cm/sec MV A max evangelista: 165.0 cm/sec E/E' lat: 30.6 E/E' med: 29.7 MV E/A: 1.3 MV V2 max: 260.7 cm/sec MV P1/2t max evangelista: 260.7 cm/sec Ao V2 max: 237.5 cm/sec MV max P.2 mmHg MV P1/2t: 75.0 msec Ao max P.6 mmHg MV V2 mean: 144.9 cm/sec MV dec slope: 1018 cm/sec2 Ao V2 mean: 152.7 cm/sec MV mean P.9 mmHg MVA(P1/2t): 2.9 cm2 Ao mean P.2 mmHg MV V2 VTI: 57.9 cm Ao V2 VTI: 45.6 cm MVA(VTI): 1.9 cm2 WILBERTO(I,D): 2.4 cm2 WILBERTO(V,D): 2.0 cm2 LV V1 max: 151.4 cm/sec SV(LVOT): 108.0 ml PA V2 max: 157.9 cm/sec LV V1 max P.2 mmHg LV V1 mean P.8 mmHg LV V1 mean: 100.9 cm/sec LV V1 VTI: 34.3 cm TR max evangelista: 394.9 cm/sec TR max P.4 mmHg ECHO/Echo Complete Interpretation Summary Normal LV size. Severe concentric left ventricular hypertrophy. Left ventricular systolic function is normal. The estimated ejection fraction is 65 %. Stage 2 diastolic dysfunction. Moderate (2+) tricuspid valve insufficiency. Moderate pulmonary hypertension. Pulmonary artery systolic pressure is 66 mmHg. Ordering Physician: Deysi Macdonald Referring Physician: Zabrina Bain M.D. Performed By: Wong Flores RCS
[2020-11-27] MEDS: Pregabalin 50 MG Capsule PO (21:38)
[2020-11-27] MEDS: Enoxaparin 40 MG/0.4 ML Syringe SC (21:38)
[2020-11-27] MEDS: metFORMIN HCl 1,000 MG Tablet 1000 MG PO (21:39)
[2020-11-27] MEDS: Metoprolol(XL)Succ 50 MG Tablet PO (21:39)
[2020-11-27] MEDS: Atorvastatin Calcium 40 MG Tablet PO (21:39)
[2020-11-27] MEDS: Sucralfate 1 GM Tablet PO (21:39)
[2020-11-27] MEDS: Acetaminophen 500 MG Tablet 1000 MG PO (21:39)
[2020-11-27] MEDS: Sertraline 100 MG Tablet 200 MG PO (21:39)
[2020-11-27] MEDS: busPIRone 15 MG TABLET PO (21:39)
[2020-11-27] MEDS: Mirabegron 50 MG TAB.ER.24H PO (21:40)
[2020-11-27] MEDS: traZODone 50 MG Tablet 150 MG PO (21:40)
[2020-11-27] MEDS: Montelukast 10 MG Tablet PO (21:40)
[2020-11-27] MEDS: Furosemide 40 MG/4 ML Vial IV (21:41)
[2020-11-27] MEDS: Insulin Lispro 100 UNIT/ML INSULN.PEN SC (21:41)
[2020-11-27] MEDS: guaiFENesin 600 MG Tablet PO (21:42)
[2020-11-27] MEDS: 0.9% Saline Lock 10 ML Syringe IV (21:43)
[2020-11-27 23:20] LABS: Bedside Glucose 301 mg/dL (70-110)
[2020-11-28] VITALS (20 sets, daily range): BP systolic 133–159; BP diastolic 56–77; PULSE 72–88; RESP 14–21; TEMP 36.4–37.1; O2SAT 93–98
[2020-11-28 05:55] LABS: Absolute Lymphocyte Count 0.71 X10^3/uL (0.83-4.51); Absolute Neutrophil Count 5.7 X10^3/uL (2.0-7.7); Basophil# 0.01 X10^3/uL; Basophil% 0.1 % (0-1); Hematocrit 30.2 % (37-47); Hemoglobin 9.1 g/dL (12.0-15.0); Lymphocyte # 0.71 X10^3/ul (0.83-4.51); Lymphocyte % 10.6 % (19-41); Mean Corp Hgb Conc 30.1 g/dL (32-36); Mean Corpuscular Hgb 29.9 pg (27.0-32.0); Mean Corpuscular Volume 99.3 fL (81-99); Mean Platelet Vol. 11.4 fl (6.2-12.0); Monocyte# 0.24 X10^3/uL; Monocyte% 3.6 % (0-10); NRBC Flagged by Analyzer 0 % (0-5); Neutrophil # 5.72 X10^3/uL (2.7-7.7); Neutrophil % 85.1 % (47-70); Platelet Count 224 K/mm3 (150-450); RBC Distribution Width CV 15.5 % (11.6-14.6); RBC Distribution Width SD 56.3 fl (35.1-43.9); Red Blood Count 3.04 M/mm3 (4.2-5.4); White Blood Count 6.7 K/mm3 (4.4-11.0)
[2020-11-28] MEDS: 0.9% Saline Lock 10 ML Syringe IV (06:02)
[2020-11-28] MEDS: Levothyroxine 25 MCG TABLET PO (06:03)
[2020-11-28] MEDS: Furosemide 40 MG/4 ML Vial IV (06:03)
[2020-11-28] MEDS: Pregabalin 50 MG Capsule PO ×3 (06:03→21:16)
[2020-11-28] MEDS: Sucralfate 1 GM Tablet PO ×4 (06:03→21:16)
[2020-11-28 06:31] LABS: ALB/GLOB Ratio 0.8 RATIO (0.9-2.4); AST(SGOT) 152 U/L (15-37); Alanine Aminotransfer ALT/SGPT 111 U/L (13-56); Albumin, Serum 3.2 g/dL (3.2-5.0); Alkaline Phosphatase 187 U/L (45-117); Anion Gap 6 (5-15); BUN 36 mg/dL (7-18); BUN/Creat Ratio 31.9 RATIO (10-20); Calcium,Total 8.9 mg/dL (8.5-10.1); Chloride 99 mmol/L (98-107); Creatinine, Serum 1.13 mg/dL (0.55-1.02); EST Glomerular Filtration Rate 50 mL/min (>60); Est Glom Filt Rate - Afr Amer 60 mL/min (>60); Estimated Creatinine Clearance 32.96 ml/min; Globulin 3.8 g/dL (2.2-4.2); Glucose 178 mg/dL (74-106); Potassium 4.7 mmol/L (3.5-5.1); Sodium Level 138 mmol/L (136-145)
[2020-11-28] MEDS: Ipratropium/Albuterol Sulfate 3 ML AMPUL.NEB INHALATION ×4 (06:56→19:15)
[2020-11-28] MEDS: Insulin Lispro 100 UNIT/ML INSULN.PEN 12 UNIT SC ×3 (07:45→16:27)
[2020-11-28] MEDS: Aspirin E.C. 81 MG Tablet PO (07:45)
[2020-11-28] MEDS: Multivitamins,Therapeutic Tablet 1 TABLET PO (07:45)
[2020-11-28] MEDS: Potassium Chloride Oral Tablet 20 MEQ PO ×2 (07:45→16:27)
[2020-11-28] MEDS: Acetaminophen 325 MG Tablet 650 MG PO (07:45)
[2020-11-28] MEDS: Insulin Lispro 100 UNIT/ML INSULN.PEN SC ×4 (07:46→21:17)
[2020-11-28 10:00] LABS: Bedside Glucose 178 mg/dL (70-110)
[2020-11-28] MEDS: Pantoprazole Sodium 20 MG Tablet PO (10:12)
[2020-11-28] MEDS: Acetaminophen 500 MG Tablet 1000 MG PO ×2 (10:12→21:16)
[2020-11-28] MEDS: Metolazone 2.5 MG Tablet PO (10:12)
[2020-11-28] MEDS: busPIRone 15 MG TABLET PO ×2 (10:12→21:17)
[2020-11-28] MEDS: guaiFENesin 600 MG Tablet PO ×2 (10:12→21:17)
[2020-11-28] MEDS: Spironolactone 50 MG Tablet PO (10:12)
[2020-11-28] MEDS: Allopurinol 300 MG Tablet PO (10:14)
[2020-11-28] MEDS: Lisinopril 5 MG Tablet PO (10:14)
[2020-11-28] MEDS: Metoprolol(XL)Succ 50 MG Tablet PO ×2 (10:14→21:17)
[2020-11-28] MEDS: Enoxaparin 40 MG/0.4 ML Syringe SC ×2 (10:15→21:15)
[2020-11-28] MEDS: Furosemide 40 MG Tablet PO ×2 (10:21→16:27)
[2020-11-28] MEDS: LORazepam 0.5 MG Tablet PO (10:21)
--- NOTE | 2020-11-28 10:51 | CASEMGMT ---
Addendum entered by Libby Boyer 11/28/20 14:24: Pt is also active with [facility]. [place] [place] Original Note: RN OCTAVIO assessment: Face to Face with patient for initial transition planning/care coordination assessment. RN OCTAVIO introduced self and role at [facility], pt voices understanding and consents to assessment. Pt is sitting up in chair in no distress on 4L nc. Pt is A/Ox4 and answers all questions appropriately. Care providers, pharmacy, and demographics verified/updated. Presentation: Pt c/o increasing SOB x1 week, placed on cpap in squad Admitting dx: Resp failure PCP: Taya Specialists: Sun, cardio; Jesus, PM; Pt provided with list of GI and PODOPEDIATRICIAN doctors who are in-network with her insurance per request. Preferred Pharmacy: [facility] Insurance: [employer], [employer] Prescription Benefit: MyCareCRSC/CRSC Living Will/HPOA: Pt states has LW/HPOA and is aware that it's on file at [facility]. Pt's daughter, Yun Merrill, is HPOA. LNOK: Yun Merrill, daughter/HPOA; Sree Gordillo, son Living Arrangements: Pt states lives alone in 1 story apt with no steps and states no concerns at home. Pt states is independent with ADL's. Transportation: Pt states uses [place] or ex- drives and states no transportation concerns. DME/HHC: Pt states has the following DME: rollator, BSC, shower chair, lift chair, NIV, and 3.5L nc home oxygen thru [employer]. Pt states no need for any further DME as her CM thru [facility] is working on this. Pt states has had HHC in the past and has been to [facility] and [facility]. Pt states has an aide M-F for 3hours daily and S/S for 5 hours each day. Pt states her CM thru [facility] is Caitie Randall. Pt also has [employer] 14 meals every 2 weeks. Pt states some concerns with going home at time of discharge. Pt provided a list of SNF providers including quality and resource use data and consistent with the patient?s preferred geographic region, medical needs, and insurance network. Pt is retired. Pt states does not smoke cigarettes and rarely drinks ETOH. Pt states no further concerns/needs. CM to follow for any further discharge planning/needs. Advised pt to ask for CM if any further questions/concerns/needs arise, voices understanding. Pt Goal: Home Plan: Home, pending PT/OT martha. Alem FERRARO CM
[2020-11-28] MEDS: HYDROcodone Bitartrate/Apap 5/325 Tablet PO (11:20)
[2020-11-28 11:41] LABS: Bedside Glucose 269 mg/dL (70-110)
[2020-11-28 12:57] LABS: Magnesium 2.1 mg/dL (1.6-2.6)
[2020-11-28 16:50] LABS: Bedside Glucose 230 mg/dL (70-110)
--- NOTE | 2020-11-28 18:11 | PCM.PN.HOSP ---
Subjective Subjective Patient reports she is better at rest but continues to have pretty significant exertional dyspnea. I did try to ascertain whether or not she is improving with this but she is a poor historian. Objective Data Objective Data Vital Signs: Vital Signs Temp Pulse Resp BP Pulse Ox 98.3 F 77 18 133/58 H 98 11/28/20 16:25 11/28/20 16:25 11/28/20 16:25 11/28/20 16:25 11/28/20 16:25 Oxygen Flow Rate (L/min) 3.5 Oxygen Delivery Method Nasal Cannula Weight: 112.5 kg Body Mass Index (BMI) 46.7 Intake & Output: Intake and Output for Last 24 Hours 11/26/20 11/27/20 11/28/20 23:59 23:59 23:59 Intake Total 255 / 495 1260 / 1260 Output Total 800 / 2200 2850 / 2850 Balance -545 / -1705 -1590 / -1590 Lab / Micro Data Result Diagrams: 11/28/20 04:48 11/28/20 04:48 Labs: Laboratory Results - last 24 hr 11/27/20 21:37: POC Glucose 301 H 11/28/20 04:48: WBC 6.7, RBC 3.04 L, Hgb 9.1 L, Hct 30.2 L, MCV 99.3 H, MCH 29.9, MCHC 30.1 L, RDW Std Deviation 56.3 H, RDW Coeff of Camilla 15.5 H, Plt Count 224, MPV 11.4, Immature Gran % (Auto) 0.600, Neut % (Auto) 85.1 H, Lymph % (Auto) 10.6 L, [place] % (Auto) 3.6, Eos % (Auto) 0.0, Baso % (Auto) 0.1, Absolute Neuts (auto) 5.7, Absolute Lymphs (auto) 0.71 L, Nucleated RBC % 0 11/28/20 04:48: Sodium 138, Potassium 4.7, Chloride 99, Carbon Dioxide 33.0 H, Anion Gap 6, BUN 36 H, Creatinine 1.13 H, Estim Creat Clear Calc 32.96, Est GFR (MDRD) Af Amer 60, Est GFR (MDRD) Non-Af 50 L, BUN/Creatinine Ratio 31.9 H, Glucose 178 H, Calcium 8.9, Total Bilirubin 0.50, AST 152 H, ALT 111 H, Alkaline Phosphatase 187 H, Total Protein 7.0, Albumin 3.2, Globulin 3.8, Albumin/Globulin Ratio 0.8 L 11/28/20 04:48: Magnesium 2.1 11/28/20 07:31: POC Glucose 178 H 11/28/20 11:18: POC Glucose 269 H 11/28/20 16:20: POC Glucose 230 H Micro: Microbiology 11/27/20 16:20 Urine Catheter - Catheter Urine Culture - Preliminary GNR lactose franchise specialist GNR lactose franchise specialist#2 11/27/20 12:25 Nasal Secretion SARS-CoV-2 Antigen (Rapid) - Final Rhythm Strip Rhythm Strip: Sinus Rhythm Rate: 73 Ectopy: None Physical Exam Const alert, oriented x3 and no apparent distress Constitutional Narrative: Morbidly obese white female sitting up in a chair at the bedside, nursing at bedside, nontoxic, slight conversational dyspnea when patient gets worked up some Exam Limitations: no limitations Resp normal respiratory effort, no retractions and no use of accessory muscles Resp Narrative: Diffusely diminished, some conversational dyspnea Auscultation: Negative for crackles, rales, rhonchi or wheezes Cardio regular rate, regular rhythm, S1 normal heart sound, S2 normal heart sound, no murmurs, no rub, no gallops, no clicks and no JVD GI normal to inspection, nondistended, normoactive bowel sounds, soft to palpation, non-tender and non-distended Extremity Extremity Narrative: Trace right-sided edema, 1+ left lower extremity edema-patient states this is chronic, no cyanosis or clubbing Peripheral Pulses: Yes pulses 2+ throughout Skin no rashes or lesions noted, no wounds, skin turgor normal, no jaundice, no petechiae and no mottling Skin Narrative: Skin is pale Neuro oriented x3, CN's II-XII intact bilaterally, moves all extremities and no focal motor deficits Sensorium / Orientation: awake and alert Speech: speech normal Psych Mood & Affect: anxious Assessment & Plan Assessment/Plan (1) Chronic respiratory failure: (2) Acute exacerbation of COPD with asthma: (3) CHF (congestive heart failure): (4) Acute on chronic anemia: PLAN: Acute on chronic hypoxic respiratory failure secondary to acute exacerbation of HFpEF/COPD -We have been able to decrease oxygen supplementation to baseline home O2 at 3.5 L -Patient still having considerable dyspnea with exertion -We will continue IV steroids -Decrease IV Lasix to home oral dose with bump in serum creatinine and improvement in swelling -Suspect anxiety contributing to her hypoxia and subjective shortness of breath -Echo pending -No current infectious source noted -Blood cultures are pending -Covid was negative -Last echo was 09/15/2018 and showed an EF of 65%, grade 1 diastolic dysfunction with a normal RV, moderate aortic stenosis and severe pulmonary artery hypertension Severe PAH who group 3 -Repeat echo pending -Suspect that this is related to her chronic respiratory disease and sleep apnea -Continue to treat underlying cause Moderate aortic stenosis -Last echo 2018 showed a valve area of 1.03 cm? -Repeat echo pending -Worsening aortic stenosis could be contributing to her respiratory distress with exertion -If echo shows worsening aortic valve would consider cardiology consultation -Patient may be A TAVR candidate--> suspect patient would not be a candidate for SAVR -Aggressive diuresis discontinued as I do not want to reduce preload too much and make her worse if her valve is worse Bacteriuria -Culture is not consistent with acute infection as colony counts are less than or equal to 50,000 CFU's per mL History of gout -Continue allopurinol Hypertension/hyperlipidemia -Continue home medications COPD -Continue home inhalers DM-2 -Continue home Lantus -Hold Metformin/Victoza -SSI -Accu-Cheks Depression/anxiety -Continue home medications GERD -Continue home medications DVT prophylaxis -Continue enoxaparin 40 mg twice daily Charges/Coding Visit Charges Inpatient E&M: 76939 Subs Hosp L2
[2020-11-28] MEDS: Atorvastatin Calcium 40 MG Tablet PO (21:16)
[2020-11-28] MEDS: traZODone 50 MG Tablet 150 MG PO (21:16)
[2020-11-28] MEDS: Montelukast 10 MG Tablet PO (21:16)
[2020-11-28] MEDS: Sertraline 100 MG Tablet 200 MG PO (21:16)
[2020-11-28] MEDS: metFORMIN HCl 1,000 MG Tablet 1000 MG PO (21:16)
[2020-11-28] MEDS: Mirabegron 50 MG TAB.ER.24H PO (21:16)
[2020-11-28 22:26] LABS: Bedside Glucose 258 mg/dL (70-110)
[2020-11-29] VITALS (11 sets, daily range): BP systolic 143–152; BP diastolic 62–73; PULSE 66–80; RESP 14–19; TEMP 36.6–36.8; O2SAT 86–98
[2020-11-29] MEDS: Sucralfate 1 GM Tablet PO ×3 (06:00→16:22)
[2020-11-29] MEDS: Pregabalin 50 MG Capsule PO ×2 (06:00→14:27)
[2020-11-29] MEDS: Levothyroxine 25 MCG TABLET PO (06:00)
[2020-11-29] MEDS: 0.9% Saline Lock 10 ML Syringe IV ×2 (06:00→06:56)
[2020-11-29] MEDS: Ipratropium/Albuterol Sulfate 3 ML AMPUL.NEB INHALATION ×2 (07:05→15:45)
[2020-11-29 07:07] LABS: Absolute Lymphocyte Count 1.17 X10^3/uL (0.83-4.51); Absolute Neutrophil Count 6.5 X10^3/uL (2.0-7.7); Basophil# 0.02 X10^3/uL; Basophil% 0.2 % (0-1); Hematocrit 31.2 % (37-47); Hemoglobin 9.5 g/dL (12.0-15.0); Lymphocyte # 1.17 X10^3/ul (0.83-4.51); Lymphocyte % 14.3 % (19-41); Mean Corp Hgb Conc 30.4 g/dL (32-36); Mean Corpuscular Hgb 30.1 pg (27.0-32.0); Mean Corpuscular Volume 98.7 fL (81-99); Mean Platelet Vol. 10.9 fl (6.2-12.0); Monocyte% 4.9 % (0-10); NRBC Flagged by Analyzer 0 % (0-5); Neutrophil # 6.53 X10^3/uL (2.7-7.7); Neutrophil % 80.1 % (47-70); Platelet Count 257 K/mm3 (150-450); RBC Distribution Width CV 15.6 % (11.6-14.6); RBC Distribution Width SD 56.7 fl (35.1-43.9); Red Blood Count 3.16 M/mm3 (4.2-5.4); White Blood Count 8.2 K/mm3 (4.4-11.0)
[2020-11-29 07:32] LABS: ALB/GLOB Ratio 0.8 RATIO (0.9-2.4); AST(SGOT) 82 U/L (15-37); Alanine Aminotransfer ALT/SGPT 96 U/L (13-56); Albumin, Serum 3.2 g/dL (3.2-5.0); Alkaline Phosphatase 176 U/L (45-117); Anion Gap 4 (5-15); BUN 45 mg/dL (7-18); BUN/Creat Ratio 41.3 RATIO (10-20); Chloride 98 mmol/L (98-107); Creatinine, Serum 1.09 mg/dL (0.55-1.02); EST Glomerular Filtration Rate 52 mL/min (>60); Est Glom Filt Rate - Afr Amer 63 mL/min (>60); Estimated Creatinine Clearance 34.17 ml/min; Globulin 3.9 g/dL (2.2-4.2); Glucose 151 mg/dL (74-106); Potassium 4.4 mmol/L (3.5-5.1); Protein, Total 7.1 g/dL (6.4-8.2); Sodium Level 137 mmol/L (136-145)
[2020-11-29 08:21] LABS: Bedside Glucose 160 mg/dL (70-110)
--- NOTE | 2020-11-29 08:25 | PN.HOSP_ITS ---
Objective Data Objective Data Vital Signs: Vital Signs Temp Pulse Resp BP Pulse Ox 97.8 F 72 16 143/72 H 97 11/29/20 04:15 11/29/20 07:05 11/29/20 07:05 11/29/20 04:15 11/29/20 07:05 Oxygen Flow Rate (L/min) 3 Oxygen Delivery Method Nasal Cannula Weight: 110.4 kg Body Mass Index (BMI) 46.7 Intake & Output: Intake and Output for Last 24 Hours 11/27/20 11/28/20 11/29/20 23:59 23:59 23:59 Intake Total 255 / 495 1515 / 1635 180 / 180 Output Total 800 / 2200 2850 / 3750 900 / 900 Balance -545 / -1705 -1335 / -2115 -720 / -720 Lab / Micro Data Result Diagrams: 11/29/20 06:50 11/29/20 06:50 Labs: Laboratory Results - last 24 hr 11/28/20 04:48: Magnesium 2.1 11/28/20 07:31: POC Glucose 178 H 11/28/20 11:18: POC Glucose 269 H 11/28/20 16:20: POC Glucose 230 H 11/28/20 21:15: POC Glucose 258 H 11/29/20 06:50: WBC 8.2, RBC 3.16 L, Hgb 9.5 L, Hct 31.2 L, MCV 98.7, MCH 30.1, MCHC 30.4 L, RDW Std Deviation 56.7 H, RDW Coeff of Camilla 15.6 H, Plt Count 257, MPV 10.9, Immature Gran % (Auto) 0.500, Neut % (Auto) 80.1 H, Lymph % (Auto) 14.3 L, [place] % (Auto) 4.9, Eos % (Auto) 0.0, Baso % (Auto) 0.2, Absolute Neuts (auto) 6.5, Absolute Lymphs (auto) 1.17, Nucleated RBC % 0 11/29/20 06:50: Sodium 137, Potassium 4.4, Chloride 98, Carbon Dioxide 35.0 H, Anion Gap 4 L, BUN 45 H, Creatinine 1.09 H, Estim Creat Clear Calc 34.17, Est GFR (MDRD) Af Amer 63, Est GFR (MDRD) Non-Af 52 L, BUN/Creatinine Ratio 41.3 H, Glucose 151 H, Calcium 9.0, Total Bilirubin 0.50, AST 82 H, ALT 96 H, Alkaline Phosphatase 176 H, Total Protein 7.1, Albumin 3.2, Globulin 3.9, Albumin/Globulin Ratio 0.8 L 11/29/20 08:16: POC Glucose 160 H Micro: Microbiology 11/27/20 16:20 Urine Catheter - Catheter Urine Culture - Preliminary Klebsiella pneumoniae sp pneum GNR lactose rotating equipment specialist#2 11/27/20 12:45 Blood Culture (Wb) - Central Line Blood Culture - Preliminary No growth in 48 hours. 11/27/20 11:22 Blood Culture (Wb) - Port Blood Culture - Preliminary No growth in 48 hours. 11/27/20 12:25 Nasal Secretion SARS-CoV-2 Antigen (Rapid) - Final Radiography Diagnostic Testing: Radiology Impression Echocardiogram 11/27/20 19:27 Interpretation Summary Normal LV size. Severe concentric left ventricular hypertrophy. Left ventricular systolic function is normal. The estimated ejection fraction is 65 %. Stage 2 diastolic dysfunction. Moderate (2+) tricuspid valve insufficiency. Moderate pulmonary hypertension. Pulmonary artery systolic pressure is 66 mmHg. __ Ordering Physician: Deysi Macdonald Referring Physician: Zabrina Bain M.D. Performed By: Wong Flores RCS Rhythm Strip Rhythm Strip: Sinus Rhythm Rate: 73 Ectopy: None Assessment & Plan Assessment/Plan (1) Chronic respiratory failure: (2) Acute exacerbation of COPD with asthma: (3) CHF (congestive heart failure): (4) Acute on chronic anemia: PLAN: Acute on chronic hypoxic respiratory failure secondary to acute exacerbation of HFpEF/COPD -We have been able to decrease oxygen supplementation to baseline home O2 at 3.5 L -Patient still having considerable dyspnea with exertion -We will continue IV steroids -Decrease IV Lasix to home oral dose with bump in serum creatinine and improvement in swelling -Suspect anxiety contributing to her hypoxia and subjective shortness of breath -Echo pending -No current infectious source noted -Blood cultures are pending -Covid was negative -Last echo was 09/15/2018 and showed an EF of 65%, grade 1 diastolic dysfunction with a normal RV, moderate aortic stenosis and severe pulmonary artery h ypertension Severe PAH who group 3 -Repeat echo pending -Suspect that this is related to her chronic respiratory disease and sleep apnea -Continue to treat underlying cause Moderate aortic stenosis -Last echo 2018 showed a valve area of 1.03 cm? -Repeat echo pending -Worsening aortic stenosis could be contributing to her respiratory distress with exertion -If echo shows worsening aortic valve would consider cardiology consultation -Patient may be A TAVR candidate--> suspect patient would not be a candidate for SAVR -Aggressive diuresis discontinued as I do not want to reduce preload too much and make her worse if her valve is worse Bacteriuria -Culture is not consistent with acute infection as colony counts are less than or equal to 50,000 CFU's per mL History of gout -Continue allopurinol Hypertension/hyperlipidemia -Continue home medications COPD -Continue home inhalers DM-2 -Continue home Lantus -Hold Metformin/Victoza -SSI -Accu-Cheks Depression/anxiety -Continue home medications GERD -Continue home medications DVT prophylaxis -Continue enoxaparin 40 mg twice daily
[2020-11-29] MEDS: Insulin Lispro 100 UNIT/ML INSULN.PEN 12 UNIT SC ×3 (08:45→16:22)
[2020-11-29] MEDS: Insulin Lispro 100 UNIT/ML INSULN.PEN SC ×3 (08:45→16:22)
[2020-11-29] MEDS: Potassium Chloride Oral Tablet 20 MEQ PO ×2 (08:46→16:23)
[2020-11-29] MEDS: Aspirin E.C. 81 MG Tablet PO (08:46)
[2020-11-29] MEDS: Multivitamins,Therapeutic Tablet 1 TABLET PO (08:47)
[2020-11-29] MEDS: Spironolactone 50 MG Tablet PO (08:48)
[2020-11-29] MEDS: Enoxaparin 40 MG/0.4 ML Syringe SC (08:49)
[2020-11-29] MEDS: Furosemide 40 MG Tablet PO ×2 (08:49→16:23)
[2020-11-29] MEDS: Acetaminophen 500 MG Tablet 1000 MG PO (08:50)
[2020-11-29] MEDS: Metolazone 2.5 MG Tablet PO (08:50)
[2020-11-29] MEDS: Metoprolol(XL)Succ 50 MG Tablet PO (08:50)
[2020-11-29] MEDS: Pantoprazole Sodium 20 MG Tablet PO (08:50)
[2020-11-29] MEDS: guaiFENesin 600 MG Tablet PO (08:51)
[2020-11-29] MEDS: Lisinopril 5 MG Tablet PO (08:51)
[2020-11-29] MEDS: busPIRone 15 MG TABLET PO (08:52)
[2020-11-29] MEDS: Ferrous Sulfate 325 MG Tablet PO (11:35)
[2020-11-29] MEDS: Allopurinol 300 MG Tablet PO (11:36)
[2020-11-29 12:00] LABS: Bedside Glucose 232 mg/dL (70-110)
--- NOTE | 2020-11-29 12:45 | CASEMGMT ---
RONAN CM: This RN CM received a call from Asael Delgado with [facility]. Tristian Vyas pt has a Apartment Leasing Agent Caitie Albarran phone #[phone], fax #[phone]. Pt receives waiver services including home health aide from [facility] Saturday thru Saturday for 3hrs/day and Saturday/Saturday 5hrs/day; [employer] [facility] 7 meals/week; and emergency response thru [facility]. Kenny Santos RN CM
--- NOTE | 2020-11-29 13:43 | PCM.DC.SUM ---
Providers Date of Admission: 11/27/20 Primary Care Physician: Dr. Zabrina Bain MD Reason For Visit: RESP FAILURE Diagnosis Discharge Diagnosis (1) Chronic respiratory failure: Status: Chronic Code(s): J96.10 - Chronic respiratory failure, unspecified whether with hypoxia or hypercapnia (2) Acute exacerbation of COPD with asthma: Status: Chronic Code(s): J44.1 - Chronic obstructive pulmonary disease with (acute) exacerbation; J45.901 - Unspecified asthma with (acute) exacerbation (3) CHF (congestive heart failure): Status: Acute Code(s): I50.9 - Heart failure, unspecified (4) Acute on chronic anemia: Status: Chronic Code(s): D64.9 - Anemia, unspecified Medications at Discharge Home Medications albuterol sulfate 2 puff INHALATION Q6H PRN PRN 06/29/14 levothyroxine 25 mcg PO DAILY 06/29/14 montelukast 10 mg PO QHS 06/29/14 sertraline 200 mg PO QHS 06/29/14 atorvastatin 40 mg PO QHS 09/18/15 fluticasone propionate 2 spray NASAL QHS PRN 09/18/15 pregabalin 50 mg PO TID 09/18/15 trazodone 150 mg PO QHS 11/26/16 multivitamin 1 tab PO DAILY 10/11/17 magnesium oxide 20 mg PO BID 11/18/17 buspirone 15 mg PO BID 07/29/18 juoyppqufwu-qdjqbyeya-sxnobyox 1 puff INHALATION DAILY 09/15/18 metoprolol succinate 50 mg PO BID 09/15/18 dicyclomine 10 mg PO ACHS PRN 04/13/19 lisinopril 5 mg PO DAILY 04/13/19 metoclopramide HCl 5 mg PO TID PRN 04/13/19 mirabegron 50 mg PO QHS 04/13/19 sucralfate 1 g PO 1HR_ACHS 04/13/19 albuterol sulfate 2.5 mg INHALATION Q2H PRN PRN vial.neb. 04/17/19 acetaminophen 1,000 mg PO BID 02/11/20 insulin glargine 24 units SC BID 02/11/20 potassium chloride 20 meq PO BID 02/11/20 allopurinol 300 mg PO LUNCH 02/12/20 ferrous sulfate 325 mg PO QODAY 02/12/20 guaifenesin 1.5 tab PO BID 02/12/20 lorazepam 0.5 mg PO PRN PRN 02/12/20 metformin 1,000 mg PO QHS 02/12/20 methocarbamol 500 mg PO BID PRN 02/12/20 Aciphex 20 mg PO DAILY 05/12/20 Loperamide 2 mg PO PRN PRN 05/12/20 Novolog Flexpen 12 units SQ TID 05/12/20 Ondansetron 4 mg PO PRN PRN 05/12/20 Victoza 20 units SQ LUNCH 05/12/20 aspirin 81 mg tablet,delayed release 81 mg PO DAILY 10/06/20 metolazone 2.5 mg tablet 2.5 mg PO DAILY #30 tab 11/21/20 spironolactone 50 mg tablet 50 mg PO DAILY #30 tab 11/21/20 furosemide 40 mg tablet 40 mg PO BID #60 tab 11/22/20 prednisone 20 mg PO BID #10 tab 11/29/20 Hospital Course Summary of Care Provided Minutes Spent on Discharge: 35 Hospital Course: Patient is a 75-year-old lady admitted with progressive shortness of breath 1. Acute on chronic hypoxic respiratory failure ?Secondary to acute exacerbation of HFpEF/COPD as well as pulmonary arterial hypertension patient was on oxygen at home baseline requirement increased on discharge Acute congestive heart failure with preserved ejection fraction ?Normal LV size. Severe concentric left ventricular hypertrophy. Left ventricular systolic function is normal. The estimated ejection fraction is 65 %. Stage 2 diastolic dysfunction. Moderate (2+) tricuspid valve insufficiency. Moderate pulmonary hypertension. Pulmonary artery systolic pressure is 66 mmHg. -Patient was managed with diuretics did improve 3. Pulmonary arterial hypertension ?Managed with supplemental oxygen. Echo demonstrated pulmonary arterial systolic pressure of 66 mm of mmHg. 4. Bacteriuria -Culture is not consistent with acute infection as colony counts are less than or equal to 50,000 CFU's per mL 5. History of gout -Continue allopurinol 6. Hypertension - Blood pressure controlled, home medications continued with dose adjustment as needed 7. Dyslipidemia -Patient is on statin therapy, continued at home dose 8. Diabetes mellitus type 2 ?GERD continue home meds 9. Depression/anxiety -Continue home medications 10. GERD -Continue home medications 11. DVT prophylaxis -Continue enoxaparin 40 mg twice daily Physical Exam Narrative GENERAL: cooperative HEENT: Atraumatic; EYES; Anicteric, Normal Conjunctiva NECK; supple, normal thyroid, RESPIRATORY: Diminished to auscultation CARDIOVASCULAR: Regular S1 S2, NEURO: Awake; no lateralizing signs. SKIN: No Rash PSYCH; Flat affect Weight / BMI Weight Weight: 110.4 kg Body Mass Index (BMI) 46.7 ABG / Lab / Microbiology Data Result Diagrams: 11/29/20 06:50 11/29/20 06:50 Laboratory: Laboratory Results - last 24 hr 11/28/20 16:20: POC Glucose 230 H 11/28/20 21:15: POC Glucose 258 H 11/29/20 06:50: WBC 8.2, RBC 3.16 L, Hgb 9.5 L, Hct 31.2 L, MCV 98.7, MCH 30.1, MCHC 30.4 L, RDW Std Deviation 56.7 H, RDW Coeff of Camilla 15.6 H, Plt Count 257, MPV 10.9, Immature Gran % (Auto) 0.500, Neut % (Auto) 80.1 H, Lymph % (Auto) 14.3 L, [place] % (Auto) 4.9, Eos % (Auto) 0.0, Baso % (Auto) 0.2, Absolute Neuts (auto) 6.5, Absolute Lymphs (auto) 1.17, Nucleated RBC % 0 11/29/20 06:50: Sodium 137, Potassium 4.4, Chloride 98, Carbon Dioxide 35.0 H, Anion Gap 4 L, BUN 45 H, Creatinine 1.09 H, Estim Creat Clear Calc 34.17, Est GFR (MDRD) Af Amer 63, Est GFR (MDRD) Non-Af 52 L, BUN/Creatinine Ratio 41.3 H, Glucose 151 H, Calcium 9.0, Total Bilirubin 0.50, AST 82 H, ALT 96 H, Alkaline Phosphatase 176 H, Total Protein 7.1, Albumin 3.2, Globulin 3.9, Albumin/Globulin Ratio 0.8 L 11/29/20 08:16: POC Glucose 160 H 11/29/20 11:32: POC Glucose 232 H Microbiology: Microbiology 11/27/20 16:20 Urine Catheter - Catheter Urine Culture - Preliminary Klebsiella pneumoniae sp pneum GNR lactose enrollment representative#2 11/27/20 12:45 Blood Culture (Wb) - Central Line Blood Culture - Preliminary No growth in 48 hours. 11/27/20 11:22 Blood Culture (Wb) - Port Blood Culture - Preliminary No growth in 48 hours. 11/27/20 12:25 Nasal Secretion SARS-CoV-2 Antigen (Rapid) - Final Radiography Diagnostic Testing: Radiology Impression Echocardiogram 11/27/20 19:27 Interpretation Summary Normal LV size. Severe concentric left ventricular hypertrophy. Left ventricular systolic function is normal. The estimated ejection fraction is 65 %. Stage 2 diastolic dysfunction. Moderate (2+) tricuspid valve insufficiency. Moderate pulmonary hypertension. Pulmonary artery systolic pressure is 66 mmHg. Ordering Physician: Deysi Macdonald Referring Physician: Zabrina Bain M.D. Performed By: Wong Flores RCS D/C Instructions Discharge Diet: 2000 Calorie Control Diet Discharge Activity: Return to Normal Activity Call your doctor if you observe: Fever of 101 or Higher, Shortness of breath, Fainting spells and Chest pain Meaningful Use Info Meaningful Use Diagnoses (Choose all that apply): CHF CHF LIZ/ARB ordered at discharge?: Yes Documented LVEF (%): 65 Discharge Plan Admission Admit Date/Time: 11/27/20 15:53 Primary Reason for Your Visit: Acute on chronic hypoxic respiratory failure Attending Provider: Asael Chaparro Primary Care Provider: Zabrina Bain Instructions Patient Instructions: ED Chest Pain, Noncardiac Discharge Orders/Prescriptions Prescriptions: New prednisone 20 mg tablet 20 mg PO BID Qty: 10 RF: 0 Continued aspirin [Adult Aspirin Regimen] 81 mg tablet,delayed release (DR/EC) 81 mg PO DAILY RF: 0 sertraline 100 MG tablet 200 mg PO QHS RF: 0 levothyroxine 25 MCG tablet 25 mcg PO DAILY RF: 0 montelukast 10 MG tablet 10 mg PO QHS RF: 0 albuterol sulfate 1 INHALER inhaler 2 puff INHALATION Q6H PRN PRN (Reason: Wheezing) RF: 0 fluticasone propionate 1 SPRAY spray,suspension 2 spray NASAL QHS PRN (Reason: Allergies) RF: 0 pregabalin 50 MG capsule 50 mg PO TID RF: 0 atorvastatin 40 MG tablet 40 mg PO QHS RF: 0 trazodone 100 MG tablet 150 mg PO QHS RF: 0 multivitamin 1 EACH tablet 1 tab PO DAILY RF: 0 magnesium oxide 400 MG tablet 20 mg PO BID RF: 0 buspirone 15 MG tablet 15 mg PO BID RF: 0 metoprolol succinate 50 MG tablet extended release 24 hr 50 mg PO BID RF: 0 iecbmtknqpe-wqmdyikgb-twstirpr 1 EACH blister with device 1 puff INHALATION DAILY RF: 0 lisinopril 5 MG tablet 5 mg PO DAILY RF: 0 metoclopramide HCl 5 MG tablet 5 mg PO TID PRN (Reason: Nausea) RF: 0 dicyclomine 10 MG capsule 10 mg PO ACHS PRN (Reason: Irritable Bowel Syndrome) RF: 0 mirabegron 25 MG tablet extended release 24 hr 50 mg PO QHS RF: 0 sucralfate 1 GM tablet 1 g PO 1HR_ACHS RF: 0 albuterol sulfate 2.5 MG/3 ML solution for nebulization 2.5 mg INHALATION Q2H PRN PRN (Reason: SHORTNESS OF BREATH) RF: 0 Aciphex 20 mg PO DAILY RF: 0 Victoza 20 units SQ LUNCH RF: 0 Novolog Flexpen 12 units SQ TID RF: 0 Ondansetron 4 mg PO PRN PRN (Reason: Nausea) RF: 0 Loperamide 2 mg PO PRN PRN (Reason: Heartburn Or Indigestion) RF: 0 acetaminophen 325 MG tablet 1,000 mg PO BID RF: 0 potassium chloride 20 MEQ tablet 20 meq PO BID RF: 0 insulin glargine 100 UNITS/ML insulin pen 24 units SC BID RF: 0 methocarbamol 500 MG tablet 500 mg PO BID PRN (Reason: nerve pain) RF: 0 lorazepam 0.5 MG tablet 0.5 mg PO PRN PRN (Reason: Anxiety) RF: 0 ferrous sulfate 325 MG tablet 325 mg PO QODAY RF: 0 metformin 1,000 MG tablet 1,000 mg PO QHS RF: 0 allopurinol 300 MG tablet 300 mg PO LUNCH RF: 0 guaifenesin 600 MG tablet extended release 12hr 1.5 tab PO BID RF: 0 spironolactone 50 mg tablet 50 mg PO DAILY Qty: 30 RF: 3 metolazone 2.5 mg tablet 2.5 mg PO DAILY Qty: 30 RF: 3 furosemide 40 mg tablet 40 mg PO BID Qty: 60 RF: 3 Discontinued clindamycin HCl 300 mg capsule 300 mg PO BID 7 Days Qty: 14 RF: 0 Lantus Solostar 24 units SQ BID RF: 0 Referrals / Follow Up: Zabrina Bain MD [Primary Care Provider] - In 1 Week Disposition Disposition (needs filled in before D/C Order can be placed): Home Health Service Charges/Coding Visit Charges Inpatient E&M: 25557 Disch Hosp
--- NOTE | 2020-11-29 14:15 | PCM.DC ---
Discharge Instructions Diet Discharge Diet: 1999 Calorie Control Diet Dressing / Incision Call your doctor if you observe: Fever of 101 or Higher, Shortness of breath, Fainting spells and Chest pain Follow Up Care Test Results: Test results from this visit will be discussed in further detail at your follow-up appointment, if applicable. Discharge Plan Admission Admit Date/Time: 11/27/20 15:53 Primary Reason for Your Visit: Acute on chronic hypoxic respiratory failure Attending Provider: Asael Chaparro Primary Care Provider: Zabrina Bain Instructions Patient Instructions: ED Chest Pain, Noncardiac Discharge Orders/Prescriptions Prescriptions: New prednisone 20 mg tablet 20 mg PO BID Qty: 10 RF: 0 Continued aspirin [Adult Aspirin Regimen] 81 mg tablet,delayed release (DR/EC) 81 mg PO DAILY RF: 0 sertraline 100 MG tablet 200 mg PO QHS RF: 0 levothyroxine 25 MCG tablet 25 mcg PO DAILY RF: 0 montelukast 10 MG tablet 10 mg PO QHS RF: 0 albuterol sulfate 1 INHALER inhaler 2 puff INHALATION Q6H PRN PRN (Reason: Wheezing) RF: 0 fluticasone propionate 1 SPRAY spray,suspension 2 spray NASAL QHS PRN (Reason: Allergies) RF: 0 pregabalin 50 MG capsule 50 mg PO TID RF: 0 atorvastatin 40 MG tablet 40 mg PO QHS RF: 0 trazodone 100 MG tablet 150 mg PO QHS RF: 0 multivitamin 1 EACH tablet 1 tab PO DAILY RF: 0 magnesium oxide 400 MG tablet 20 mg PO BID RF: 0 buspirone 15 MG tablet 15 mg PO BID RF: 0 metoprolol succinate 50 MG tablet extended release 24 hr 50 mg PO BID RF: 0 ndxfekalvuc-esrkyxvbh-vexprqkh 1 EACH blister with device 1 puff INHALATION DAILY RF: 0 lisinopril 5 MG tablet 5 mg PO DAILY RF: 0 metoclopramide HCl 5 MG tablet 5 mg PO TID PRN (Reason: Nausea) RF: 0 dicyclomine 10 MG capsule 10 mg PO ACHS PRN (Reason: Irritable Bowel Syndrome) RF: 0 mirabegron 25 MG tablet extended release 24 hr 50 mg PO QHS RF: 0 sucralfate 1 GM tablet 1 g PO 1HR_ACHS RF: 0 albuterol sulfate 2.5 MG/3 ML solution for nebulization 2.5 mg INHALATION Q2H PRN PRN (Reason: SHORTNESS OF BREATH) RF: 0 Aciphex 20 mg PO DAILY RF: 0 Victoza 20 units SQ LUNCH RF: 0 Novolog Flexpen 12 units SQ TID RF: 0 Ondansetron 4 mg PO PRN PRN (Reason: Nausea) RF: 0 Loperamide 2 mg PO PRN PRN (Reason: Heartburn Or Indigestion) RF: 0 acetaminophen 325 MG tablet 1,000 mg PO BID RF: 0 potassium chloride 20 MEQ tablet 20 meq PO BID RF: 0 insulin glargine 100 UNITS/ML insulin pen 24 units SC BID RF: 0 methocarbamol 500 MG tablet 500 mg PO BID PRN (Reason: nerve pain) RF: 0 lorazepam 0.5 MG tablet 0.5 mg PO PRN PRN (Reason: Anxiety) RF: 0 ferrous sulfate 325 MG tablet 325 mg PO QODAY RF: 0 metformin 1,000 MG tablet 1,000 mg PO QHS RF: 0 allopurinol 300 MG tablet 300 mg PO LUNCH RF: 0 guaifenesin 600 MG tablet extended release 12hr 1.5 tab PO BID RF: 0 spironolactone 50 mg tablet 50 mg PO DAILY Qty: 30 RF: 3 metolazone 2.5 mg tablet 2.5 mg PO DAILY Qty: 30 RF: 3 furosemide 40 mg tablet 40 mg PO BID Qty: 60 RF: 3 Discontinued clindamycin HCl 300 mg capsule 300 mg PO BID 7 Days Qty: 14 RF: 0 Lantus Solostar 24 units SQ BID RF: 0 Referrals / Follow Up: Zabrina Bain MD [Primary Care Provider] - In 1 Week Disposition Disposition (needs filled in before D/C Order can be placed): Home Health Service
--- NOTE | 2020-11-29 14:59 | CASEMGMT ---
Addendum entered by Libby Boyer 11/29/20 15:48: Call back from [facility] and they are able to accept pt. Pt ready for discharge. Alem FERRARO CM Original Note: Call to [facility] and per Azul, pt's order is for 2Lnc continuous home oxygen. Julio RN aware to test pt on this for discharge. Per Julio RN, pt qualified for increased home oxygen with exertion, 6L nc and is fine on her 2L nc at rest. New order obtained and faxed to [facility]. Pt is agreeable to [facility] and states would like [facility] as she has had them in the past. Referral faxed to [facility] for PT/OT as pt will still stay active with [facility] for meds. Rhett at [facility] aware of discharge and [facility] referral, voices understanding. Pt also asks this RN CM about palliative care and states she was active in the past. Pt is agreeable for referral to be sent at this time. This RN CM awaiting a call back from [facility] on acceptance. CM to follow. Alem FERRARO CM
--- NOTE | 2020-11-29 15:49 | CASEMGMT ---
SONI faxed H&P and d/c instructions to Caitie Albarran at [facility]. Tracy Elizabeth ATTENDING PHYSICIANLeda CADET
[2020-11-29 17:05] LABS: Bedside Glucose 158 mg/dL (70-110)
--- NOTE | 2020-12-01 14:00 | CASEMGMT ---
RN CM Discharge Follow-up Phone Call: PASHA: Bety Strata: 3 Call Date: 12/01/20 Discharge Date: 11/29/20 Time of Call: 1350 Admitting Diagnosis: HFpEF, COPD, chronic respiratory failure This RN CM contacted pt via phone for discharge follow-up. Pt states she feels better, denies sob at rest but states she gets SOB with activity. Pt states she is wearing her O2 at 4l/min continuous. States she is not increasing her O2 to the 6l/min with ambulation. Pt states her concentrator does not go up to 6l/min, only 5l/min. Instructed pt to increase it to 5l/min and that this RN CM would contact [facility] about a higher flow concentrator. Pt reports her PO to be 93-96% at rest and decreases to the 80's with activity. Again encouraged pt to increase her O2 with ambulation. Pt expressed understanding. Pt states she did obtain the prednisone and is taking it as directed. Pt states she has not reached out to Dr. Mathis for follow-up and states she would prefer to talk with Dr. Garsia. Encouraged pt to contact either physician office for follow-up and educated her on the importance of being evaluated after discharge. Pt expressed understanding. Pt states she did not receive all of her discharge instructions upon returning home but was able to get copies of parts of it. The list of in-network providers was lost. Pt requested a new list be mailed to her. This RN CM confirmed her address and will mail a new list of providers to her. Pt states she continues to take her insulin as she was prior to admission and her blood glucose this morning awas 119. Pt denies any further questions or concerns at this time. This RN CM contacted [facility] and per Danie they have been trying to contact the patient about delivering a higher flow concentrator. Danie states she will drive out there today and deliver the concentrator. Kenny Santos RN CM
--- NOTE | 2020-12-01 14:31 | CCN.REFER ---
. CCN saw patient yesterday. Patient did not look good, and her sats are dropping pretty low with very little exertion (81% on o2 4 LPM) She is compliant with medications, and she has all necessary follow up visits scheduled. BEATRICE did a second follow up today as I wanted to discuss SNF with her to stabilize and avoid future hospitalization. She continues to adamantly decline. She also declined Hospice stating that she had them before, and she was not happy with their services. She also told [facility] that [facility] was going to come out. I do not see any notes on this. left with [facility] to confirm. CCN to monitor each week. SAFETY COORDINATOR are short staffed right now, so patient does not have SAFETY COORDINATOR very often.
--- NOTE | 2020-12-01 14:51 | CASEMGMT ---
RN CM: Phone Call placed to [facility]. Per Lucy, a referral was received and pt is on their list to be seen by a liaison. Kenny Santos RN CM
== END 2020-11-29 17:56 | disposition home health service (06) | DRG 291 ==
LOC: ED 15:20 → PCU 16:37
PROVIDERS: Internal Medicine; Admitting Provider Internal Medicine; Emergency Provider Emergency Medicine; PCP Internal Medicine; Visit Provider Internal Medicine
DX: I11.0 Hypertensive heart disease with heart failure (principal); J96.21 Acute and chronic respiratory failure with hypoxia; J44.1 Chronic obstructive pulmonary disease with (acute) exacerbation; C85.90 Non-Hodgkin lymphoma, unspecified, unspecified site; Z68.42 Body mass index [BMI] 45.0-49.9, adult; I50.33 Acute on chronic diastolic (congestive) heart failure; D64.9 Anemia, unspecified; I27.21 Secondary pulmonary arterial hypertension; I50.82 Biventricular heart failure; E11.42 Type 2 diabetes mellitus with diabetic polyneuropathy; G89.29 Other chronic pain; F41.9 Anxiety disorder, unspecified; F32.9 Major depressive disorder, single episode, unspecified; K21.9 Gastro-esophageal reflux disease without esophagitis; E78.5 Hyperlipidemia, unspecified; E03.9 Hypothyroidism, unspecified; G47.33 Obstructive sleep apnea (adult) (pediatric); E66.01 Morbid (severe) obesity due to excess calories; Z87.891 Personal history of nicotine dependence; Z99.81 Dependence on supplemental oxygen; Z79.899 Other long term (current) drug therapy; Z79.51 Long term (current) use of inhaled steroids; Z79.4 Long term (current) use of insulin; Z79.82 Long term (current) use of aspirin; Z79.890 Hormone replacement therapy; M10.9 Gout, unspecified
CPT/HCPCS: 36415; 36591; 71045; 80053; 81001; 82962; 83735; 83880; 84484; 85025; 87040; 87077; 87086; 87088; 87186; 87426; 93005; 93306; 94002; 94003; 94640; 97110; 97166; 97535; 97802; 99251; 99285; J7040; Q9957; A4216; G0463; J1940; J2405; J3490

== ENCOUNTER 2020-12-26 06:30 | Day surgery (SDC) | payer MEDICARE, MEDICAID, SELFPAY ==
[2020-12-26 06:58] VITALS: BP 133/64; PULSE 87; RESP 20; TEMP 36.6; O2SAT 100; BMI 45.3
[2020-12-26 07:26] LABS: Bedside Glucose 164 mg/dL (70-110)
[2020-12-26] MEDS: Lactated Ringers 1,000 ML 100 ML IV (07:57)
--- NOTE | 2020-12-26 08:10 | RAD_ITS ---
PROCEDURE: Right L3-S1 radiofrequency ablation. DATE OF EXAMINATION: 12/26/2020. INDICATION: Female, 75 years old. Back pain. FLUOROSCOPY TIME (if supplied): (16.9 seconds) minutes/seconds. 8 images were obtained. Intraoperative imaging provided for right L3-S1 radiofrequency ablation. RAD/L/S Spine Min 4 Views IMPRESSION: Intraoperative imaging provided for right L3-S1 radiofrequency ablation. Electronically Signed: Raghu Arnett MD at 9:39 EDT , Service support ,
[2020-12-26] MEDS: MethylPREDNISolone Acetate 40 MG/ML Vial IM (08:12)
[2020-12-26] MEDS: Lidocaine 1% (30 ml sdv) 30 ML Vial (08:12)
--- NOTE | 2020-12-26 08:20 | PCM.OPRPT ---
Report of Operation Date of Procedure: 12/26/20 Pre-Operative Diagnosis: Lumbosacral spondylosis, lumbosacral degenerative disc disease, lumbar facet arthropathy Post-Operative Diagnosis: Lumbosacral spondylosis, lumbosacral degenerative disc disease, lumbar facet arthropathy Surgery/Procedure Performed:: Right-sided lumbar radiofrequency ablation of the medial branch L3, L4, L5, S1 Type of Anesthesia: MAC Estimated Blood Loss (mL): Minimal Description of Procedure: History and physical today was reviewed. Risks and benefits of procedure explained. The patient understood, agreed to the procedure and informed consent was obtained. IV inserted per routine protocol. The patient was taken to the operating room, placed in the prone position with a pillow positioned underneath the abdomen. The right side of the lower back was prepped and draped in a sterile fashion using iodine x 3. Under fluoroscopy guidance, on an oblique view, the L3 through S1 vertebral bodies were visualized. The skin and subcutaneous tissue was anesthetized with approximately 10 mL of 1% lidocaine using a 25-gauge regular needle. Under direct visualization with fluoroscopy at approximately 25-degree angle, starting on the right L3, ending on the right S1 passing through the L4-L5 using a 20-gauge 15 cm with a 10 mm curved active tip radiofrequency ablation needle the needle passed through the skin. The tip of the needle was maneuvered and directed towards the superior and medial gutter of the transverse process at the vicinity of the medial branch. Once the tip of the needle was in contact with the bone, the needle pulled approximately 2 mm up the bone. The stylet of each needle was then removed. After negative aspiration of blood with CSF and confirmation of AP as well as oblique view, radiofrequency ablation probe was then inserted at each level. Impedance was then recorded at L3 to be 288, at L4 263, at L5 236, at S1 228 ohm. Motor-evoked potential was then initiated to 1.5 volt without any motor response at each corresponding level. The probe was then removed intact and a total of 6 mL preservative-free 1% lidocaine was injected in divided doses between those 4 levels after negative aspiration of blood with CSF. The radiofrequency ablation probe was then reinserted after confirmation of AP, oblique as well as lateral view. Radiofrequency ablation was then initiated to 80 degrees Celsius for 90 seconds at each level. Once concluded, the probe was then removed intact and a total of 6 mL of preservative-free 0.25% Marcaine with 40 mg Depo-Medrol was injected in divided doses between those 4 levels. The needles were then removed intact. The patient experienced no signs or symptoms of intrathecal, intravascular injection. The patient experienced no paraesthesia. The procedure was completed without any apparent difficulty, any complication. The patient appeared to tolerate well. Sensory as well as motor exam was unchanged from prior to procedure. ASSESSMENT AND PLAN: This is a 75-year-old female with lumbosacral spondylosis, lumbosacral degenerative disc disease, lumbar facet arthropathy, status post right-sided radiofrequency ablation of the medial branch L3 through S1. The patient will continue her current medications. The patient will follow up in approximately 2 weeks for reevaluation. Complications None
[2020-12-26 08:25] VITALS: BP 133/64; PULSE 89; RESP 18; TEMP 36.6; O2SAT 98
[2020-12-26 08:30] VITALS: BP 133/64; BP 160/73; PULSE 88; RESP 18; O2SAT 98
[2020-12-26 08:35] VITALS: BP 133/64; BP 162/77; PULSE 87; RESP 18; O2SAT 98
[2020-12-26 08:40] VITALS: BP 133/64; BP 168/81; PULSE 88; RESP 18; O2SAT 98
[2020-12-26 09:07] VITALS: BP 133/64
== END 2020-12-26 09:10 | disposition home or self-care (01) ==
LOC: SDC 06:33 → AC 06:40
PROVIDERS: PCP Internal Medicine; Visit Provider Anesthesiology Pain Medicine
PROC: (CPT 64635; principal; 2020-12-26 08:00)
DX: M47.817 Spondylosis without myelopathy or radiculopathy, lumbosacral region (principal); M51.37 Other intervertebral disc degeneration, lumbosacral region; M51.36 Other intervertebral disc degeneration,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; J44.9 Chronic obstructive pulmonary disease, unspecified; E78.5 Hyperlipidemia, unspecified; I11.0 Hypertensive heart disease with heart failure; I50.31 Acute diastolic (congestive) heart failure; K21.9 Gastro-esophageal reflux disease without esophagitis; E66.01 Morbid (severe) obesity due to excess calories; M10.9 Gout, unspecified; M47.816 Spondylosis without myelopathy or radiculopathy,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; Z79.899 Other long term (current) drug therapy; Z79.82 Long term (current) use of aspirin; Z79.51 Long term (current) use of inhaled steroids; Z79.4 Long term (current) use of insulin; Z99.81 Dependence on supplemental oxygen; Z68.42 Body mass index [BMI] 45.0-49.9, adult
CPT/HCPCS: 01936; 64635; 64636 ×3; 72110; 76000; 82962; J7120; A4216

== ENCOUNTER → 2021-01-20 15:19 | Outpatient (CLI) | payer MEDICARE, MEDICAID, SELFPAY ==
[2021-01-20 16:23] LABS: BNP,B-Type NATRIURETIC PEPTIDE 66.1 pg/mL (0-100)
[2021-01-20 16:31] LABS: Anion Gap 3 (5-15); BUN 30 mg/dL (7-18); BUN/Creat Ratio 26.3 RATIO (10-20); Calcium,Total 8.9 mg/dL (8.5-10.1); Chloride 101 mmol/L (98-107); Creatinine, Serum 1.14 mg/dL (0.55-1.02); EST Glomerular Filtration Rate 49 mL/min (>60); Est Glom Filt Rate - Afr Amer 60 mL/min (>60); Glucose 179 mg/dL (74-106); Potassium 4.7 mmol/L (3.5-5.1); Sodium Level 139 mmol/L (136-145)
== END ==
PROVIDERS: PCP Internal Medicine; Visit Provider Nurse Practitioner Family
DX: J96.10 Chronic respiratory failure, unspecified whether with hypoxia or hypercapnia (principal); I35.0 Nonrheumatic aortic (valve) stenosis; I50.30 Unspecified diastolic (congestive) heart failure; I50.813 Acute on chronic right heart failure
CPT/HCPCS: 36415; 80048; 83880

== ENCOUNTER → 2021-01-31 11:33 | Outpatient (CLI) | payer MEDICARE, MEDICAID, SELFPAY | PROVIDERS: PCP Internal Medicine; Referring Provider Nurse Practitioner Family; Visit Provider Nurse Practitioner Family | DX: J96.10 Chronic respiratory failure, unspecified whether with hypoxia or hypercapnia (principal); I50.9 Heart failure, unspecified; R55 Syncope and collapse; R07.89 Other chest pain | CPT/HCPCS: 93225; 93226 ==

== ENCOUNTER → 2021-02-17 15:19 | Outpatient (CLI) | payer MEDICARE, MEDICAID, SELFPAY ==
[2021-02-17 17:50] LABS: Anion Gap 7 (5-15); BUN 24 mg/dL (7-18); BUN/Creat Ratio 21.4 RATIO (10-20); Calcium,Total 9.1 mg/dL (8.5-10.1); Chloride 99 mmol/L (98-107); Creatinine, Serum 1.12 mg/dL (0.55-1.02); EST Glomerular Filtration Rate 50 mL/min (>60); Est Glom Filt Rate - Afr Amer 61 mL/min (>60); Glucose 94 mg/dL (74-106); Potassium 5.1 mmol/L (3.5-5.1); Sodium Level 141 mmol/L (136-145)
[2021-02-17 18:16] LABS: BNP,B-Type NATRIURETIC PEPTIDE 86.6 pg/mL (0-100)
== END ==
PROVIDERS: PCP Internal Medicine; Referring Provider Nurse Practitioner Family; Visit Provider Nurse Practitioner Family
DX: I50.9 Heart failure, unspecified (principal)
CPT/HCPCS: 36415; 80048; 83880

== ENCOUNTER 2021-02-22 03:00 | Inpatient (IN) | payer MEDICARE, MEDICAID, SELFPAY ==
[2021-02-22] VITALS (23 sets, daily range): BP systolic 119–195; BP diastolic 65–140; PULSE 74–89; RESP 24–34; TEMP 36.6–38.1; O2SAT 89–896; BMI 47.9; BMI 46.0
[2021-02-22 03:11] LABS: Bedside Glucose 482 mg/dL (70-110)
--- NOTE | 2021-02-22 03:20 | EKG12_ITS ---
Test Reason : DYSRHYTHMIA Blood Pressure : / mmHG Vent. Rate : 084 BPM Atrial Rate : 084 BPM P-R Int : 166 ms QRS Dur : 082 ms QT Int : 362 ms P-R-T Axes : 071 -22 061 degrees QTc Int : 427 ms Normal sinus rhythm Poor R wave progression Confirmed by JEFF REGALADO, NATALIE ([id number]), desk editor JAYLEEN MUSE ([id number]) on 02/24/2021 1:03:06 PM Referred By: JV Confirmed By:NATALIE AGUILAR MD
[2021-02-22 03:28] LABS: Absolute Lymphocyte Count 0.57 X10^3/uL (0.83-4.51); Absolute Neutrophil Count 6.1 X10^3/uL (2.0-7.7); Basophil# 0.01 X10^3/uL; Basophil% 0.1 % (0-1); Hematocrit 33.1 % (37-47); Hemoglobin 10.2 g/dL (12.0-15.0); Lymphocyte # 0.57 X10^3/ul (0.83-4.51); Mean Corp Hgb Conc 30.8 g/dL (32-36); Mean Corpuscular Hgb 30.1 pg (27.0-32.0); Mean Corpuscular Volume 97.6 fL (81-99); Mean Platelet Vol. 11.6 fl (6.2-12.0); Monocyte# 0.48 X10^3/uL; Monocyte% 6.7 % (0-10); NRBC Flagged by Analyzer 0 % (0-5); Neutrophil # 6.06 X10^3/uL (2.7-7.7); Neutrophil % 84.6 % (47-70); POSITIVE DIFFERENTIAL YES; Platelet Count 175 K/mm3 (150-450); RBC Distribution Width CV 17.7 % (11.6-14.6); RBC Distribution Width SD 64.5 fl (35.1-43.9); Red Blood Count 3.39 M/mm3 (4.2-5.4); White Blood Count 7.2 K/mm3 (4.4-11.0)
[2021-02-22 03:29] LABS: Differential Indicated SCAN CRITERIA MET
--- NOTE | 2021-02-22 03:39 | RAD_ITS ---
EXAM: XR CHEST, 1 VIEW CLINICAL INDICATION: dyspnea TECHNIQUE: Frontal view of the chest. This report was created using [employer] report generation technology. COMPARISON: None. FINDINGS: LUNGS AND PLEURAL SPACES: More conspicuous heterogeneous airspace opacities involving the upper 2 lower lungs bilaterally most dense at the lower lobes. No pneumothorax. No effusion. HEART: Fullness of the cardiac silhouette representing cardiomegaly and central pericardial effusion. MEDIASTINUM: Central airways and mediastinal contour are unremarkable. BONES/JOINTS: Degenerative changes of the spine and acromioclavicular joints as well as the right glenohumeral joint. Diffuse osteopenia. SOFT TISSUES: Unremarkable. VASCULATURE: Dense atherosclerotic calcifications of the nonenlarged thoracic aortic arch. TUBES, LINES AND DEVICES: Left chest port identified, unchanged from before. RAD/Chest 1 View (Portable) IMPRESSION: Bilateral multilobar pneumonia. Electronically Signed: Iban Del Toro MD at 4:20 EST Tel , Service support ,
[2021-02-22 03:45] LABS: Partial Thromboplast Time 30.1 Seconds (24.1-36.2); Prothrombin Time (Protime)PT. 12.8 SECONDS (11.7-14.9)
--- NOTE | 2021-02-22 03:56 | EDS_ITS ---
HPI History of Present Illness Chief Complaint: General Illness Narrative Narrative: Patient is a 75-year-old female with past medical history of diabetes as well as COPD and congestive heart failure who wears 2 to 4 L of nasal cannula oxygen. She was doing outpatient testing prior to an EGD and colonoscopy when she tested positive for Covid. Patient does state that she has been having congestion and cough during this time. She states that she has been wearing 4 L at home but is continued to feel short of breath. She also states she was placed on steroids because of the Covid diagnosis but tonight had an elevated blood sugar reading and with the symptoms called EMS. [facility] Medical History Abdominal pain Abrasion of second toe, right Acute diastolic CHF (congestive heart failure) Acute on chronic anemia Anxiety Bilateral macrostomia Breast hematoma Breast pain, left Cancer Cardiology follow-up encounter Chronic neck and back pain Chronic obstructive pulmonary disease Contusion of second toe, right COPD (chronic obstructive pulmonary disease) Degeneration of intervertebral disc of lumbosacral region Depression Diabetes mellitus, type II Diarrhea Diarrhea Difficulty balancing when standing Diverticulosis Edema of left lower extremity Essential (primary) hypertension Excoriation Fatigue Fatty liver disease, nonalcoholic Gastric polyp GERD (gastroesophageal reflux disease) GERD (gastroesophageal reflux disease) Gout of left foot Hyperlipidemia Hypothyroidism IBS (irritable bowel syndrome) Injury of right great toe Limb weakness Lumbar spinal stenosis Morbid obesity Neck pain Non Hodgkin's lymphoma Nonrheumatic aortic valve stenosis Obstructive sleep apnea On home oxygen therapy Pain in left ankle and joints of left foot Positive H. pylori test Primary osteoarthritis of right hip Pseudomonas aeruginosa infection Radiculopathy of lumbosacral region Right buttock pain Right-sided heart failure Secondary pulmonary arterial hypertension Sjogren's syndrome Skin abrasion Spinal stenosis of lumbosacral region Spondylosis of lumbosacral region without myelopathy or radiculopathy Spondylosis of lumbosacral region without myelopathy or radiculopathy Tinea unguium Type 2 diabetes mellitus with diabetic polyneuropathy Home Medications albuterol sulfate 2 puff INHALATION Q6H PRN PRN 06/29/14 [History Last Taken 04/12/19] levothyroxine 25 mcg PO DAILY 06/29/14 [History Last Taken 04/13/19] montelukast 10 mg PO QHS 06/29/14 [History Last Taken 04/13/19] sertraline 200 mg PO QHS 06/29/14 [History Last Taken 04/12/19] atorvastatin 40 mg PO QHS 09/18/15 [History Last Taken 04/12/19] fluticasone propionate 2 spray NASAL QHS PRN 09/18/15 [History Last Taken 04/12/19] pregabalin 50 mg PO TID 09/18/15 [History Last Taken 04/13/19] trazodone 150 mg PO QHS 11/26/16 [History Last Taken 04/12/19] multivitamin 1 tab PO DAILY 10/11/17 [History Last Taken 04/13/19] magnesium oxide 20 mg PO BID 11/18/17 [History Last Taken 04/13/19] buspirone 15 mg PO BID 07/29/18 [History Last Taken 04/13/19] pecntrqqpsj-xohztkrvn-avmoskoq 1 puff INHALATION DAILY 09/15/18 [History Last Taken 04/13/19] metoprolol succinate 50 mg PO BID 09/15/18 [History Last Taken 04/13/19] dicyclomine 10 mg PO ACHS PRN 04/13/19 [History Last Taken 04/13/19] lisinopril 5 mg tablet 5 mg PO DAILY 04/13/19 [History Last Taken 04/13/19] metoclopramide HCl 5 mg PO TID PRN 04/13/19 [History Last Taken 04/13/19] mirabegron 50 mg PO QHS 04/13/19 [History Last Taken 04/13/19] sucralfate 1 g PO 1HR_ACHS 04/13/19 [History Last Taken 04/13/19] albuterol sulfate 2.5 mg INHALATION Q2H PRN PRN vial.neb. 04/17/19 [Rx Last Taken Unknown] acetaminophen 1,000 mg PO BID 02/11/20 [History Last Taken Unknown] insulin glargine 34 units SC BID 02/11/20 [History Last Taken Unknown] potassium chloride 20 meq PO BID 02/11/20 [History Last Taken Unknown] allopurinol 300 mg PO LUNCH 02/12/20 [History Last Taken Unknown] ferrous sulfate 325 mg PO QODAY 02/12/20 [History Last Taken Unknown] guaifenesin 1.5 tab PO BID 02/12/20 [History Last Taken Unknown] lorazepam 0.5 mg PO PRN PRN 02/12/20 [History Last Taken Unknown] metformin 1,000 mg PO QHS 02/12/20 [History Last Taken Unknown] methocarbamol 500 mg PO BID PRN 02/12/20 [History Last Taken Unknown] Aciphex 20 mg PO DAILY 05/12/20 [History Last Taken Unknown] Loperamide 2 mg PO PRN PRN 05/12/20 [History Last Taken Unknown] Novolog Flexpen 12 units SQ TID 05/12/20 [History Last Taken Unknown] Ondansetron 4 mg PO PRN PRN 05/12/20 [History Last Taken Unknown] Victoza 20 units SQ LUNCH 05/12/20 [History Last Taken Unknown] metolazone 2.5 mg tablet 2.5 mg PO DAILY #30 tab 11/21/20 [Rx Last Taken Unknown] furosemide 40 mg tablet 40 mg PO BID #60 tab 11/22/20 [Rx Last Taken Unknown] bisacodyl 5 mg tablet,delayed release 5 mg PO ONCE #4 tab 01/20/21 [Rx Last Taken Unknown] polyethylene glycol 3350 17 gram/dose oral powder 17 g PO DAILY #238 g 01/20/21 [Rx Last Taken Unknown] aspirin 81 mg tablet,delayed release 81 mg PO DAILY #90 tab 01/26/21 [Rx Last Taken Unknown] dexamethasone 6 mg tablet 6 mg PO DAILY 7 Days #7 tab 02/17/21 [Rx Last Taken Unknown] Allergy/AdvReac Type Severity Reaction Status Date / Time adhesive Allergy Itching Verified 02/22/21 03:11 adhesive tape Allergy Rash Verified 02/22/21 03:11 amoxicillin trihydrate Allergy Hives Verified 02/22/21 03:11 [From Augmentin] Antihistamines - Alkylamine Allergy Other Verified 02/22/21 03:11 Iodinated Contrast Media Allergy Anaphylaxis Verified 02/22/21 03:11 [Iodinated Contrast- Oral and IV Dye] latex Allergy Rash Verified 02/22/21 03:11 Latex, Natural Rubber Allergy Rash Verified 02/22/21 03:11 metronidazole [From Flagyl] Allergy Hives Verified 02/22/21 03:11 Metronidazole HCl Allergy Hives Verified 02/22/21 03:11 [From Flagyl] Penicillins [PCN] Allergy Hives Verified 02/22/21 03:11 potassium clavulanate Allergy Hives Verified 02/22/21 03:11 [From Augmentin] sulfamethoxazole Allergy Hives Verified 02/22/21 03:11 [From Bactrim] trimethoprim [From Bactrim] Allergy Hives Verified 02/22/21 03:11 diphenhydramine HCl AdvReac i could Verified 02/22/21 03:11 [From Benadryl] crawl to the ceiling/diaphoresis/tremor omeprazole AdvReac Nausea Verified 02/22/21 03:11 promethazine HCl AdvReac Nausea Verified 02/22/21 03:11 [From Phenergan] antihistamine Allergy i could Uncoded 02/22/21 03:11 crawl to the ceiling/sleepy/disoriented Family History Brother , history of sudden cardiac CAD (coronary artery disease) CVA (cerebral vascular accident) Brother Sudden cardiac Brother CAD (coronary artery disease) Mother Heart disease Father Brain aneurysm Surgical History H/O hemorrhoidectomy History of esophagogastroduodenoscopy (EGD) (~02/15/20) History of left heart catheterization (2003) History of tonsillectomy Hx of lumbosacral spine surgery S/P wrist surgery Social History Smoking Status: Former smoker alcohol intake: never substance use type: does not use ROS ROS ED Constitutional Constitutional ED: Denies chills or fever(s) ENT ENT ED: Reports rhinorrhea and sore throat Cardiovascular Cardiovascular: Denies chest pain Respiratory/Chest Respiratory/Chest: Reports cough, dyspnea and sputum Gastrointestinal Gastrointestinal: Denies abdominal pain, diarrhea, nausea or vomiting Genitourinary Genitourinary ED: Denies dysuria Musculoskeletal Musculoskeletal: Reports myalgias Integumentary Denies rash Neurologic Neurologic: Reports headache(s) Hematologic/Lymphatic Hematologic/Lymphatic: Denies easy bleeding or easy bruising EXAM Physical Exam Const Vital Signs: 02/22/21 03:00 02/22/21 03:28 02/22/21 04:28 Temperature 99.2 F H Temperature Source Temporal Pulse Rate 89 81 Respiratory Rate 34 H 29 H Respiratory Effort Non-Labored Respiratory Pattern Tachypnea Blood Pressure 195/140 H 142/65 H Blood Pressure Mean 158 90 Pulse Ox 96 97 Oxygen Delivery Method Non-Rebreather High Flow Oxygen Flow Rate (L/min) 15 15 Positive well nourished, well developed and obese General Appearance ED: well developed Nutritional Appearance: obese HEENT Reports moist mucous membranes HEENT Narrative: Cobblestoning the posterior pharynx consistent with sinus drainage but no oral lesions no airway edema or compromise Eyes PERRL and EOMs intact bilaterally Neck supple and no JVD Resp Resp Narrative: Patient is in mild to moderate respiratory distress with tachypnea and accessory muscle use. Breath sounds are diminished throughout with diffuse expiratory wheeze and rhonchi in bilateral bases. Cardio regular rate and regular rhythm Rate: other Other Details: Radial pulses are plus 2 out of 4 bilaterally are equal and symmetric GI normal to inspection, nondistended, normoactive bowel sounds, non-tender, non- distended and no masses GI Narrative: No voluntary guarding or rigidity no pulsatile mass Auscultation: normoactive bowel sounds Palpation: soft Extremity Extremity Narrative: +1-2 pitting edema to the bilateral lower extremities that is equal and symmetric with negative Homans' sign bilaterally Neuro oriented x3 and CN's II-XII intact bilaterally Sensorium / Orientation: alert Motor Exam: strength 5/5 throughout Psych mental status grossly normal Skin no rashes or lesions noted MDM MDM MDM Narrative Medical decision making narrative: EMS reports that when they arrived patient was satting 79% on 4 L. On arrival to the ER she was on a nonrebreather and satting in the high 90s but still had increased work of breathing. With her report of recent Covid diagnosis there is concern she is now progressed to Covid pneumonia which x-ray did confirm. At this time she is requiring 15 L to keep her sats in the mid 90s and based on her medical conditions and timeframe of her Covid diagnosis you most likely will worsen over the next few days. Therefore at this time as she is requiring a higher amount of oxygen than she does at baseline with concern that her hypoxia and inflammation worsen she will be kept in the hospital for further treatment. The patient's elevated blood sugar is related to uncontrolled diabetes and her recent steroid use. She does not have elevation to her anion gap or decrease value of her bicarb to indicate DKA. Lab Data Attestation: I reviewed the patient's lab results. Labs: Laboratory Results - last 24 hr 02/22/21 02/22/21 02/22/21 03:06 03:15 03:15 WBC 7.2 RBC 3.39 L Hgb 10.2 L Hct 33.1 L MCV 97.6 MCH 30.1 MCHC 30.8 L RDW Std Deviation 64.5 H RDW Coeff of Camilla 17.7 H Plt Count 175 MPV 11.6 Immature Gran % (Auto) 0.600 Neut % (Auto) 84.6 H Lymph % (Auto) 8.0 L Rains % (Auto) 6.7 Eos % (Auto) 0.0 Baso % (Auto) 0.1 Absolute Neuts (auto) 6.1 Absolute Lymphs (auto) 0.57 L Nucleated RBC % 0 PT 12.8 INR 1.0 APTT 30.1 Sodium Potassium Chloride Carbon Dioxide Anion Gap BUN Creatinine Estim Creat Clear Calc Est GFR (MDRD) Af Amer Est GFR (MDRD) Non-Af BUN/Creatinine Ratio Glucose Lactic Acid Calcium Magnesium Troponin I High Sens B-Natriuretic Peptide POC Glucose 482 H* 02/22/21 02/22/21 02/22/21 03:15 03:15 03:29 WBC RBC Hgb Hct MCV MCH MCHC RDW Std Deviation RDW Coeff of Camilla Plt Count MPV Immature Gran % (Auto) Neut % (Auto) Lymph % (Auto) Rains % (Auto) Eos % (Auto) Baso % (Auto) Absolute Neuts (auto) Absolute Lymphs (auto) Nucleated RBC % PT INR APTT Sodium 136 Potassium 5.1 Chloride 98 Carbon Dioxide 30.0 Anion Gap 8 BUN 46 H Creatinine 1.47 H Estim Creat Clear Calc 25.34 Est GFR (MDRD) Af Amer 45 L Est GFR (MDRD) Non-Af 37 L BUN/Creatinine Ratio 31.3 H Glucose 470 H* Lactic Acid 2.0 Calcium 8.5 Magnesium 2.0 Troponin I High Sens 9 B-Natriuretic Peptide 200.3 H POC Glucose Radiography Diagnostic Testing: Clinical Impression(s) from Imaging Studies Chest X-Ray 02/22/21 03:39 IMPRESSION: Bilateral multilobar pneumonia. Electronically Signed: Iban Del Toro MD at 4:20 EST Tel , Service support , Critical Care Time Critical Care Time: Yes Critical care time (excluding procedures): - (Please note critical care time of 33 minutes) Discharge Plan Dx/Rx/DC Orders Clinical Impression: Pneumonia due to 2019 novel coronavirus, Acute and chronic respiratory failure with hypoxia Disposition Disposition: Acute Care Hospital [facility]
[2021-02-22 04:19] LABS: BNP,B-Type NATRIURETIC PEPTIDE 200.3 pg/mL (0-100)
[2021-02-22 04:53] LABS: Anion Gap 8 (5-15); BUN 46 mg/dL (7-18); BUN/Creat Ratio 31.3 RATIO (10-20); Calcium,Total 8.5 mg/dL (8.5-10.1); Chloride 98 mmol/L (98-107); Creatinine, Serum 1.47 mg/dL (0.55-1.02); EST Glomerular Filtration Rate 37 mL/min (>60); Est Glom Filt Rate - Afr Amer 45 mL/min (>60); Estimated Creatinine Clearance 25.34 ml/min; Glucose 470 mg/dL (74-106); Potassium 5.1 mmol/L (3.5-5.1); Sodium Level 136 mmol/L (136-145); Troponin-I HS 9 pg/mL (3.0-54.0)
--- NOTE | 2021-02-22 05:44 | HP.PCM.HOS_ITS ---
HPI - General General Date of Admission: 02/22/21 Date of Service: 02/22/21 Chief Complaint: Shortness of breath, hypoxia, COVID-19 infection, hyperglycemia HPI Narrative DAMION OROZCO, is a 75 F who presents to the emergency room at [facility] for evaluation of increased shortness of breath, hypoxia, hyperglycemia, and COVID-19 infection. Patient was recently diagnosed with COVID-19 on 02/17/2021, she had had symptoms for 9 to 10 days at that point according to notation at the urgent care, and she was placed on Decadron, she has had the [employer] vaccine, she states that over the past couple of days her breathing has become more of a problem, she has noted that her home setting of 4 L via nasal cannula was not enough to prevent her shortness of breath. Besides her chronic hypoxic respiratory failure, patient also has type 2 diabetes, morbid obesity, chronic congestive heart failure, moderate aortic st enosis, non-Hodgkin's lymphoma, obstructive sleep apnea, and essential hypertension. Work-up in the emergency room revealed the patient to be hypoxic on her home oxygen setting, she required high flow oxygen at 15 L to maintain her pulse ox. Patient had a low-grade temperature of 99.2, white blood cell count was normal, hemoglobin was slightly low at 10.2, creatinine was 1.47, BUN was 46, and gl ucose was 470. Patient's beta natruretic peptide was 200. Chest x-ray showed bilateral multi lobar pneumonia. Patient will be admitted to [facility], she is not a candidate for remdesivir primarily due to the timeframe of her COVID-19, she will be placed on IV Decadron, blood sugars will be monitored she will be given sliding scale insulin. I talked to the patient about her CODE STATUS, patient would like to be a full code including any chest compressions and intubation, I asked the patient to reconsider this given her multiple medical problems as outlined above, patient is at high risk for a long tedious course on the ventilator and there is a good chance that she will never make it off the ventilator. I went over this with her. Patient seems unaware of her multiple medical problems. [facility] Medical History Abdominal pain Abrasion of second toe, right Acute diastolic CHF (congestive heart failure) Acute on chronic anemia Anxiety Bilateral macrostomia Breast hematoma Breast pain, left Cancer Cardiology follow-up encounter Chronic neck and back pain Chronic obstructive pulmonary disease Contusion of second toe, right COPD (chronic obstructive pulmonary disease) Degeneration of intervertebral disc of lumbosacral region Depression Diabetes mellitus, type II Diarrhea Diarrhea Difficulty balancing when standing Diverticulosis Edema of left lower extremity Essential (primary) hypertension Excoriation Fatigue Fatty liver disease, nonalcoholic Gastric polyp GERD (gastroesophageal reflux disease) GERD (gastroesophageal reflux disease) Gout of left foot Hyperlipidemia Hypothyroidism IBS (irritable bowel syndrome) Injury of right great toe Limb weakness Lumbar spinal stenosis Morbid obesity Neck pain Non Hodgkin's lymphoma Nonrheumatic aortic valve stenosis Obstructive sleep apnea On home oxygen therapy Pain in left ankle and joints of left foot Positive H. pylori test Primary osteoarthritis of right hip Pseudomonas aeruginosa infection Radiculopathy of lumbosacral region Right buttock pain Right-sided heart failure Secondary pulmonary arterial hypertension Sjogren's syndrome Skin abrasion Spinal stenosis of lumbosacral region Spondylosis of lumbosacral region without myelopathy or radiculopathy Spondylosis of lumbosacral region without myelopathy or radiculopathy Tinea unguium Type 2 diabetes mellitus with diabetic polyneuropathy Home Medications albuterol sulfate 2 puff INHALATION Q6H PRN PRN 06/29/14 [History Last Taken 04/12/19] levothyroxine 25 mcg PO DAILY 06/29/14 [History Last Taken 04/13/19] montelukast 10 mg PO QHS 06/29/14 [History Last Taken 04/13/19] sertraline 200 mg PO QHS 06/29/14 [History Last Taken 04/12/19] atorvastatin 40 mg PO QHS 09/18/15 [History Last Taken 04/12/19] fluticasone propionate 2 spray NASAL QHS PRN 09/18/15 [History Last Taken 04/12/19] pregabalin 50 mg PO TID 09/18/15 [History Last Taken 04/13/19] trazodone 150 mg PO QHS 11/26/16 [History Last Taken 04/12/19] multivitamin 1 tab PO DAILY 10/11/17 [History Last Taken 04/13/19] magnesium oxide 20 mg PO BID 11/18/17 [History Last Taken 04/13/19] buspirone 15 mg PO BID 07/29/18 [History Last Taken 04/13/19] yifhfzufews-aypukvvvb-yoqtqzyi 1 puff INHALATION DAILY 09/15/18 [History Last Taken 04/13/19] metoprolol succinate 50 mg PO BID 09/15/18 [History Last Taken 04/13/19] dicyclomine 10 mg PO ACHS PRN 04/13/19 [History Last Taken 04/13/19] lisinopril 5 mg tablet 5 mg PO DAILY 04/13/19 [History Last Taken 04/13/19] metoclopramide HCl 5 mg PO TID PRN 04/13/19 [History Last Taken 04/13/19] mirabegron 50 mg PO QHS 04/13/19 [History Last Taken 04/13/19] sucralfate 1 g PO 1HR_ACHS 04/13/19 [History Last Taken 04/13/19] albuterol sulfate 2.5 mg INHALATION Q2H PRN PRN vial.neb. 04/17/19 [Rx Last Taken Unknown] acetaminophen 1,000 mg PO BID 02/11/20 [History Last Taken Unknown] insulin glargine 34 units SC BID 02/11/20 [History Last Taken Unknown] potassium chloride 20 meq PO BID 02/11/20 [History Last Taken Unknown] allopurinol 300 mg PO LUNCH 02/12/20 [History Last Taken Unknown] ferrous sulfate 325 mg PO QODAY 02/12/20 [History Last Taken Unknown] guaifenesin 1.5 tab PO BID 02/12/20 [History Last Taken Unknown] lorazepam 0.5 mg PO PRN PRN 02/12/20 [History Last Taken Unknown] metformin 1,000 mg PO QHS 02/12/20 [History Last Taken Unknown] methocarbamol 500 mg PO BID PRN 02/12/20 [History Last Taken Unknown] Aciphex 20 mg PO DAILY 05/12/20 [History Last Taken Unknown] Loperamide 2 mg PO PRN PRN 05/12/20 [History Last Taken Unknown] Novolog Flexpen 12 units SQ TID 05/12/20 [History Last Taken Unknown] Ondansetron 4 mg PO PRN PRN 05/12/20 [History Last Taken Unknown] Victoza 20 units SQ LUNCH 05/12/20 [History Last Taken Unknown] metolazone 2.5 mg tablet 2.5 mg PO DAILY #30 tab 11/21/20 [Rx Last Taken Unknown] furosemide 40 mg tablet 40 mg PO BID #60 tab 11/22/20 [Rx Last Taken Unknown] bisacodyl 5 mg tablet,delayed release 5 mg PO ONCE #4 tab 01/20/21 [Rx Last Taken Unknown] polyethylene glycol 3350 17 gram/dose oral powder 17 g PO DAILY #238 g 01/20/21 [Rx Last Taken Unknown] aspirin 81 mg tablet,delayed release 81 mg PO DAILY #90 tab 01/26/21 [Rx Last Taken Unknown] dexamethasone 6 mg tablet 6 mg PO DAILY 7 Days #7 tab 02/17/21 [Rx Last Taken Unknown] Allergy/AdvReac Type Severity Reaction Status Date / Time adhesive Allergy Itching Verified 02/22/21 03:11 adhesive tape Allergy Rash Verified 02/22/21 03:11 amoxicillin trihydrate Allergy Hives Verified 02/22/21 03:11 [From Augmentin] Antihistamines - Alkylamine Allergy Other Verified 02/22/21 03:11 Iodinated Contrast Media Allergy Anaphylaxis Verified 02/22/21 03:11 [Iodinated Contrast- Oral and IV Dye] latex Allergy Rash Verified 02/22/21 03:11 Latex, Natural Rubber Allergy Rash Verified 02/22/21 03:11 metronidazole [From Flagyl] Allergy Hives Verified 02/22/21 03:11 Metronidazole HCl Allergy Hives Verified 02/22/21 03:11 [From Flagyl] Penicillins [PCN] Allergy Hives Verified 02/22/21 03:11 potassium clavulanate Allergy Hives Verified 02/22/21 03:11 [From Augmentin] sulfamethoxazole Allergy Hives Verified 02/22/21 03:11 [From Bactrim] trimethoprim [From Bactrim] Allergy Hives Verified 02/22/21 03:11 diphenhydramine HCl AdvReac i could Verified 02/22/21 03:11 [From Benadryl] crawl to the ceiling/diaphoresis/tremor omeprazole AdvReac Nausea Verified 02/22/21 03:11 promethazine HCl AdvReac Nausea Verified 02/22/21 03:11 [From Phenergan] antihistamine Allergy i could Uncoded 02/22/21 03:11 crawl to the ceiling/sleepy/disoriented Family History Brother , history of sudden cardiac CAD (coronary artery disease) CVA (cerebral vascular accident) Brother Sudden cardiac Brother CAD (coronary artery disease) Mother Heart disease Father Brain aneurysm Surgical History H/O hemorrhoidectomy History of esophagogastroduodenoscopy (EGD) (~02/15/20) History of left heart catheterization (2003) History of tonsillectomy Hx of lumbosacral spine surgery S/P wrist surgery Social History Smoking Status: Former smoker alcohol intake: never substance use type: does not use ROS Constitutional Constitutional: Reports malaise; Denies anorexia, change in weight, fever(s), night sweats or weakness Eyes Eyes: Denies blurry vision, change in vision, discharge from eye(s) or eye pain Cardiovascular Cardiovascular: Denies chest pain, claudication, edema or palpitations Respiratory/Chest Respiratory/Chest: Reports cough, dyspnea, shortness of breath at rest and shortness of breath with exertion; Denies hemoptysis Gastrointestinal Gastrointestinal: Denies abdominal pain, constipation, diarrhea, hematemesis, hematochezia, melena, nausea or vomiting Genitourinary Genitourinary: Denies dysuria, hematuria, urinary frequency, urinary hesitancy, urinary incontinence or urinary urgency Musculoskeletal Musculoskeletal: Denies back pain, joint pain, joint stiffness, joint swelling, myalgias or neck pain Neurologic Neurologic: Denies abnormal gait, abnormal speech, dizziness, focal weakness, headache(s), loss of vision, numbness, other visual disturbances, paresthesias, syncope or tingling Psychiatric Psychiatric: Denies anxiety, cognitive impairment, depression, irritability, mood swings or suicidal ideation Endocrine Endocrinology: Denies change in body appearance, cold intolerance, excessive sweating, heat intolerance, polydipsia or polyuria Hematologic/Lymphatic Hematologic/Lymphatic: Denies none, anemia, easy bleeding, easy bruising or lymphadenopathy Allergic/Immunologic Allergic/Immunologic: Denies rhinitis, urticaria, eczemia or asthma Vital Signs Vital Signs Vital Signs: 02/22/21 03:00 02/22/21 03:28 02/22/21 04:28 Temperature 99.2 F H Temperature Source Temporal Pulse Rate 89 81 Respiratory Rate 34 H 29 H Respiratory Effort Non-Labored Respiratory Pattern Tachypnea Blood Pressure 195/140 H 142/65 H Blood Pressure Mean 158 90 Blood Pressure Source Blood Pressure Position Blood Pressure Location Pulse Ox 96 97 Oxygen Delivery Method Non-Rebreather High Flow Oxygen Flow Rate (L/min) 15 15 02/22/21 05:14 02/22/21 05:37 Temperature 99.2 F H 98.9 F Temperature Source Temporal Oral Pulse Rate 81 85 Respiratory Rate 24 H 30 H Respiratory Effort Respiratory Pattern Blood Pressure 170/83 H 178/87 H Blood Pressure Mean 112 117 Blood Pressure Source Monitor Blood Pressure Position Semi-Fowlers Blood Pressure Location Left Forearm Pulse Ox 96 96 Oxygen Delivery Method Nasal Cannula High Flow Oxygen Flow Rate (L/min) 15 15 Weight Weight: 115.2 kg Body Mass Index (BMI) 47.9 Physical Exam Const alert, oriented x3 and no apparent distress Constitutional Narrative: Patient is morbidly obese General Appearance: cooperative, well kempt and well developed Orientation / Consciousness: awake, oriented to person, oriented to place and oriented to time HEENT normocephalic, head/scalp atraumatic, hearing grossly normal bilaterally and moist oral mucous membranes Eyes PERRL, EOMs intact bilaterally and conjunctivae normal Neck nuchal rigidity, supple, no JVD, thyroid normal and no carotid bruits General: trachea midline Resp normal respiratory effort, no retractions and no use of accessory muscles Resp Narrative: Decreased breath sounds bilaterally Auscultation: Negative for rales, rhonchi or wheezes Cardio regular rate, regular rhythm, S1 normal heart sound, S2 normal heart sound, no murmurs, no rub and no gallops GI normal to inspection, nondistended, normoactive bowel sounds, soft to palpation, non-tender and non-distended GI Narrative: Patient is morbidly obese Extremity no clubbing, cyanosis or edema Skin no rashes or lesions noted and skin turgor normal General Skin Exam: no breakdown Neuro oriented x3, CN's II-XII intact bilaterally, no focal motor deficits and no sensory deficits noted Sensorium / Orientation: awake and alert Speech: speech normal Psych thought process normal and affect normal Results Lab / Micro Data Result Diagrams: 02/22/21 03:15 02/22/21 03:15 Labs: Laboratory Results - last 24 hr 02/22/21 03:06: POC Glucose 482 H* 02/22/21 03:15: WBC 7.2, RBC 3.39 L, Hgb 10.2 L, Hct 33.1 L, MCV 97.6, MCH 30.1, MCHC 30.8 L, RDW Std Deviation 64.5 H, RDW Coeff of Camilla 17.7 H, Plt Count 175, MPV 11.6, Immature Gran % (Auto) 0.600, Neut % (Auto) 84.6 H, Lymph % (Auto) 8.0 L, [place] % (Auto) 6.7, Eos % (Auto) 0.0, Baso % (Auto) 0.1, Absolute Neuts (auto) 6.1, Absolute Lymphs (auto) 0.57 L, Nucleated RBC % 0 02/22/21 03:15: PT 12.8, INR 1.0, APTT 30.1 02/22/21 03:15: Sodium 136, Potassium 5.1, Chloride 98, Carbon Dioxide 30.0, Anion Gap 8, BUN 46 H, Creatinine 1.47 H, Estim Creat Clear Calc 25.34, Est GFR (MDRD) Af Amer 45 L, Est GFR (MDRD) Non-Af 37 L, BUN/Creatinine Ratio 31.3 H, Glucose 470 H*, Calcium 8.5, Magnesium 2.0, Troponin I High Sens 9 02/22/21 03:15: B-Natriuretic Peptide 200.3 H 02/22/21 03:29: Lactic Acid 2.0 Micro: Microbiology 02/22/21 03:45 Nasal Secretion SARS-CoV-2 Antigen (Rapid) - Final SARS-CoV-2 (COVID 19) Radiology Impression Chest X-Ray 02/22/21 03:39 IMPRESSION: Bilateral multilobar pneumonia. Electronically Signed: Iban Del Toro MD at 4:20 EST Tel , Service support , Assessment & Plan Assessment/Plan (1) COVID-19: PLAN: 1. COVID-19 pneumonia-patient will be admitted to [facility], she will be maintained on IV Decadron, she is not a candidate for remdesivir, she may ultimately be a candidate for baricitinib but based on her renal function, this could be problematic also. Overall outlook for the patient is extremely guarded due to her multiple medical problems. #2 acute on chronic hypoxic respiratory failure-patient is on high flow nasal cannula oxygen at this time, pulse ox will be monitored #3 type 2 diabetes-blood sugars look to be monitored, they are elevated I feel from her recent dexamethasone prescription. This was prescribed on 02/17/2021. #4 morbid obesity-complicates care and recovery #5 moderate pulmonary hypertension #6 non-Hodgkin's lymphoma by history #7 chronic kidney disease stage IIIb #8 obstructive sleep apnea-patient follows with [facility] pulmonology in [place] #9 anemia-etiology unclear #10 chronic diastolic congestive heart failure #11 hyperlipidemia Charges/Coding Visit Charges Inpatient E&M: 29060 Init Hosp L3
[2021-02-22] MEDS: 0.9% Saline Lock 10 ML Syringe IV ×2 (06:55→22:22)
[2021-02-22 07:06] LABS: Bedside Glucose 276 mg/dL (70-110)
[2021-02-22 07:35] LABS: Reflex Lactate? Y
[2021-02-22 08:41] LABS: Lactic Acid 1.2 mmol/L (0.4-1.9)
[2021-02-22] MEDS: Insulin Lispro 100 UNIT/ML INSULN.PEN 18 UNIT SC ×3 (09:50→16:54)
[2021-02-22] MEDS: Insulin Lispro 100 UNIT/ML INSULN.PEN SC ×3 (09:50→16:55)
[2021-02-22] MEDS: busPIRone 15 MG TABLET PO ×2 (09:53→22:22)
[2021-02-22] MEDS: dexAMETHasone 10 MG/ML Vial 6 MG IV (09:53)
[2021-02-22] MEDS: Aspirin E.C. 81 MG Tablet PO (09:55)
[2021-02-22] MEDS: Ferrous Sulfate 325 MG Tablet PO (09:55)
[2021-02-22] MEDS: Potassium Chloride Oral Tablet 20 MEQ PO ×2 (09:57→22:22)
[2021-02-22] MEDS: Furosemide 100 MG/10 ML Vial 80 MG IV (09:58)
[2021-02-22] MEDS: Enoxaparin 30 MG/0.3 ML Syringe SC ×2 (09:59→22:25)
[2021-02-22] MEDS: Pantoprazole Sodium 40 MG Tablet PO ×2 (09:59→22:24)
[2021-02-22] MEDS: Levothyroxine 25 MCG TABLET PO (09:59)
[2021-02-22] MEDS: Metoprolol(XL)Succ 50 MG Tablet PO ×2 (10:00→22:24)
[2021-02-22] MEDS: Acetaminophen 500 MG Tablet 1000 MG PO ×2 (10:01→22:25)
[2021-02-22] MEDS: Lisinopril 5 MG Tablet PO (10:01)
[2021-02-22] MEDS: Metolazone 2.5 MG Tablet PO (10:01)
[2021-02-22] MEDS: Umeclidinium Bromide Inhaler 1 PUFF INHALATION (10:03)
--- NOTE | 2021-02-22 11:10 | CASEMGMT ---
RONAN CUNNINGHAM Assessment: Face to Face with pt for initial transition planning/care coordination assessment. RONAN CUNNINGHAM introduced self and role at [facility], pt voices understanding and consents to assessment. Pt is A/O x4 and answers all questions appropriately at this time. Pt sitting up on edge of bed with O2 on. Pt states she feels like she is having a cold sweat. Unable to complete entire assessment. Notified nurse and pt assisted back to bed. Care providers, pharmacy, and demographics verified/updated. Admitting Dx: COVID 19, PNA PCP:Taya Specialists: jany Garsia Preferred Pharmacy: [place] Insurance: My Care CRS, CRS Prescription Benefit: yes LW/HPOA: Pt has LW/DPOA on file at [facility]. DPOA is dtr Yun Merrill. LNOK: Yun Merrill, dtr; Sree Gordillo, son Living Arrangements: Pt lives alone in a ground level apt with no steps to enter. Pt states she needs assistance with ADL's and has private aides from [facility] daily. Aides visit for 3 hours per day during the week and 5 hours per day on the weekend. HHC: Pt has HHC through [place], they are aware pt is hospitalized. She is unaware of what disciplines. Pt also has Rhett BARRON notified of admission. RONAN CUNNINGHAM to follow pt and complete rest of assessment at different date.
--- NOTE | 2021-02-22 11:14 | PCM.PN.HOSP ---
Subjective Subjective Patient is a 75-year-old lady who tested positive for Covid on 02/17/2021 presented to the emergency department with increasing shortness of breath Objective Data Objective Data Vital Signs: Vital Signs Temp Pulse Resp BP Pulse Ox 100.5 F H 88 28 H 176/89 H 95 02/22/21 08:50 02/22/21 10:00 02/22/21 08:50 02/22/21 08:50 02/22/21 09:03 Oxygen Flow Rate (L/min) 14 Oxygen Delivery Method High Flow Weight: 110.7 kg Body Mass Index (BMI) 46.0 Lab / Micro Data Result Diagrams: 02/22/21 03:15 02/22/21 03:15 Labs: Laboratory Results - last 24 hr 02/22/21 03:06: POC Glucose 482 H* 02/22/21 03:15: WBC 7.2, RBC 3.39 L, Hgb 10.2 L, Hct 33.1 L, MCV 97.6, MCH 30.1, MCHC 30.8 L, RDW Std Deviation 64.5 H, RDW Coeff of Camilla 17.7 H, Plt Count 175, MPV 11.6, Immature Gran % (Auto) 0.600, Neut % (Auto) 84.6 H, Lymph % (Auto) 8.0 L, [place] % (Auto) 6.7, Eos % (Auto) 0.0, Baso % (Auto) 0.1, Absolute Neuts (auto) 6.1, Absolute Lymphs (auto) 0.57 L, Nucleated RBC % 0 02/22/21 03:15: PT 12.8, INR 1.0, APTT 30.1 02/22/21 03:15: Sodium 136, Potassium 5.1, Chloride 98, Carbon Dioxide 30.0, Anion Gap 8, BUN 46 H, Creatinine 1.47 H, Estim Creat Clear Calc 25.34, Est GFR (MDRD) Af Amer 45 L, Est GFR (MDRD) Non-Af 37 L, BUN/Creatinine Ratio 31.3 H, Glucose 470 H*, Calcium 8.5, Magnesium 2.0, Troponin I High Sens 9 02/22/21 03:15: B-Natriuretic Peptide 200.3 H 02/22/21 03:29: Lactic Acid 2.0 02/22/21 06:53: POC Glucose 276 H 02/22/21 08:01: Lactic Acid 1.2 Micro: Microbiology 02/22/21 03:45 Nasal Secretion SARS-CoV-2 Antigen (Rapid) - Final SARS-CoV-2 (COVID 19) Radiography Diagnostic Testing: Radiology Impression Chest X-Ray 02/22/21 03:39 IMPRESSION: Bilateral multilobar pneumonia. Electronically Signed: Iban Del Toro MD at 4:20 EST Tel , Service support , Physical Exam Narrative GENERAL: Dyspneic at rest HEENT: Atraumatic; EYES; Anicteric, Normal Conjunctiva NECK; supple, normal thyroid, RESPIRATORY: Diminished to auscultation, bilateral rhonchi CARDIOVASCULAR: Regular S1 S2, GI: soft, normoactive bowel sounds, : No Renal angle tenderness; EXTREMITIES: edema, no clubbing, MUSCULOSKELETAL: no muscle waisting NEURO: Awake; no lateralizing signs. SKIN: No Rash PSYCH; Flat affect Assessment & Plan Assessment/Plan (1) COVID-19: PLAN: Patient is a 75-year-old lady who tested positive for Covid on 02/17/2021 presented to the emergency department with increasing shortness of breath 1. Acute hypoxic respiratory failure ?Due to combination of COVID-19 pneumonia as well as suspected congestive heart failure. Patient placed on supplemental oxygen with treatment of patient underlying etiology 2. COVID-19 pneumonia ?Patient placed on Decadron. Patient was deemed not to be a candidate for remdesivir 3. Acute on chronic congestive heart failure with preserved ejection fraction ?Echo obtained on 11/28/2020 demonstrated EF of 65% with stage II diastolic dysfunction. Patient placed on supplemental oxygen, fluid restriction as well as IV diuretics 4. Pulmonary arterial hypertension ?Managed with supplemental oxygen. Echo demonstrated pulmonary arterial systolic pressure of 66 mm of mmHg. 5. History of gout -Continue allopurinol 6. Hypertension - Blood pressure controlled, home medications continued with dose adjustment as needed 7. Dyslipidemia -Patient is on statin therapy, continued at home dose 8. Diabetes mellitus type 2 ?Uncontrolled with hyperglycemia in view of concomitant steroid use. Did adjust patient insulin regimen 9. Depression/anxiety -Continue home medications 10. GERD -Continue home medications 11. Class III morbid obesity with BMI 46.1 ?Weight loss advised 12. Chronic kidney disease stage IIIa ?Monitoring with daily BMPs 13. Obstructive sleep apnea ?PAP therapy at night 14. Anemia - Secondary to chronic disorder monitoring H&H and transfuse if patient becomes symptomatic or hemoglobin falls below 7 15. Non-Hodgkin's lymphoma ?Per history currently in remission 16. DVT prophylaxis -Continue enoxaparin 30 mg twice daily Advance planning; did discuss with the patient regarding advanced directives as well as CODE STATUS. Did explain the various scenarios involved ( FULL CODE, DNR CCA, DNR CCA with no intubation, and DNR CC and what each meant) patient elected to be DNR CCA no intubation. Order was placed. Time spent on discussion 18 minutes. Total time spent evaluating patient adjusting meds and subsequent review following adjustment of therapy; 45 minutes Charges/Coding Procedures Hospitalists Procedures: 37714 Prolonged InPt Service; first hour Multi Select Codes Hospitalists' Procedures Procedures: 07615 Advncd Care Plan 30 Min
--- NOTE | 2021-02-22 11:47 | CASEMGMT ---
Social Work Note Per fire and explosion investigator questions pt has completed HCPOA and LW and provided copies to [facility]. SW reviewed chart. HCPOA and LW are on file at [facility]. SW printed off documents and placed on pt's chart. Libby Ruiz MSW, PLASTER APPLICATOR
--- NOTE | 2021-02-22 11:55 | CASEMGMT ---
Social Work Note SW reviewed chart. Pt has CM Caitie Albarran at [facility]. SW placed a call to Caitie and left message updating her that pt has been admitted to [facility]. Libby Ruiz ACTIVITY AID, MICROPHONE BOOM OPERATOR
[2021-02-22 12:15] LABS: Bedside Glucose 193 mg/dL (70-110)
[2021-02-22] MEDS: Furosemide 40 MG Tablet PO ×2 (13:10→16:54)
[2021-02-22] MEDS: Albuterol Sulfate 8 gm Inhaler (60 puffs) 2 PUFF INHALATION ×3 (13:11→22:53)
[2021-02-22] MEDS: Allopurinol 300 MG Tablet PO (13:11)
[2021-02-22] MEDS: Pregabalin 50 MG Capsule PO ×2 (13:18→22:24)
[2021-02-22] MEDS: traZODone 50 MG Tablet 150 MG PO (22:23)
[2021-02-22] MEDS: Montelukast 10 MG Tablet PO (22:24)
[2021-02-22] MEDS: Atorvastatin Calcium 40 MG Tablet PO (22:24)
[2021-02-22] MEDS: Mirabegron 50 MG TAB.ER.24H PO (22:25)
[2021-02-22] MEDS: Sertraline 100 MG Tablet 200 MG PO (22:31)
[2021-02-22 22:56] LABS: Bedside Glucose 112 mg/dL (70-110)
[2021-02-22 22:56] LABS: Bedside Glucose 161 mg/dL (70-110)
[2021-02-23] VITALS (16 sets, daily range): BP systolic 120–158; BP diastolic 38–72; PULSE 63–92; RESP 14–40; TEMP 36.6–36.9; O2SAT 89–98
[2021-02-23] MEDS: Albuterol Sulfate 8 gm Inhaler (60 puffs) 2 PUFF INHALATION ×3 (04:21→06:39)
[2021-02-23] MEDS: Pregabalin 50 MG Capsule PO (05:00)
[2021-02-23 06:12] LABS: Absolute Lymphocyte Count 0.75 X10^3/uL (0.83-4.51); Absolute Neutrophil Count 6.4 X10^3/uL (2.0-7.7); Hematocrit 35.6 % (37-47); Hemoglobin 10.7 g/dL (12.0-15.0); Lymphocyte # 0.75 X10^3/ul (0.83-4.51); Lymphocyte % 9.8 % (19-41); Mean Corp Hgb Conc 30.1 g/dL (32-36); Mean Corpuscular Hgb 29.7 pg (27.0-32.0); Mean Corpuscular Volume 98.9 fL (81-99); Mean Platelet Vol. 11.6 fl (6.2-12.0); Monocyte# 0.51 X10^3/uL; Monocyte% 6.7 % (0-10); NRBC Flagged by Analyzer 0 % (0-5); Neutrophil # 6.35 X10^3/uL (2.7-7.7); POSITIVE MORPHOLOGY YES; Platelet Count 189 K/mm3 (150-450); RBC Distribution Width CV 18.1 % (11.6-14.6); RBC Distribution Width SD 65.1 fl (35.1-43.9); White Blood Count 7.7 K/mm3 (4.4-11.0)
[2021-02-23 06:17] LABS: Differential Indicated SCAN CRITERIA MET
[2021-02-23 06:41] LABS: Anisocytosis 1+
[2021-02-23 06:49] LABS: ALB/GLOB Ratio 0.6 RATIO (0.9-2.4); AST(SGOT) 77 U/L (15-37); Alanine Aminotransfer ALT/SGPT 77 U/L (13-56); Albumin, Serum 2.8 g/dL (3.2-5.0); Alkaline Phosphatase 153 U/L (45-117); Anion Gap 4 (5-15); BUN 52 mg/dL (7-18); BUN/Creat Ratio 42.3 RATIO (10-20); Calcium,Total 9.4 mg/dL (8.5-10.1); Chloride 102 mmol/L (98-107); Creatinine, Serum 1.23 mg/dL (0.55-1.02); EST Glomerular Filtration Rate 45 mL/min (>60); Est Glom Filt Rate - Afr Amer 55 mL/min (>60); Estimated Creatinine Clearance 30.28 ml/min; Globulin 4.6 g/dL (2.2-4.2); Glucose 156 mg/dL (74-106); Magnesium 2.1 mg/dL (1.6-2.6); Protein, Total 7.4 g/dL (6.4-8.2); Sodium Level 142 mmol/L (136-145)
[2021-02-23 07:41] LABS: Bedside Glucose 160 mg/dL (70-110)
--- NOTE | 2021-02-23 07:47 | PCM.PN.HOSP ---
Subjective Subjective Patient had to be placed on BiPAP due to increasing work of breathing. Michel catheter was also placed. Adjusted patient Lasix dose. Did go over CODE STATUS once again with patient she wishes to remain DNR CCA with no intubation Objective Data Objective Data Vital Signs: Vital Signs Temp Pulse Resp BP Pulse Ox 97.8 F 80 30 H 121/72 H 94 02/23/21 06:22 02/23/21 07:21 02/23/21 07:21 02/23/21 06:22 02/23/21 07:21 Oxygen Flow Rate (L/min) 15 Oxygen Delivery Method Non-Rebreather Weight: 110.7 kg Body Mass Index (BMI) 46.0 Intake & Output: Intake and Output for Last 24 Hours 02/21/21 02/22/21 02/23/21 23:59 23:59 23:59 Intake Total 200 / 200 100 / 100 Output Total 1200 / 1200 200 / 200 Balance -1000 / -1000 -100 / -100 Lab / Micro Data Result Diagrams: 02/23/21 05:40 02/23/21 05:40 Labs: Laboratory Results - last 24 hr 02/22/21 08:01: Lactic Acid 1.2 02/22/21 11:38: POC Glucose 193 H 02/22/21 16:52: POC Glucose 161 H 02/22/21 22:19: POC Glucose 112 H 02/23/21 05:40: WBC 7.7, RBC 3.60 L, Hgb 10.7 L, Hct 35.6 L, MCV 98.9, MCH 29.7, MCHC 30.1 L, RDW Std Deviation 65.1 H, RDW Coeff of Camilla 18.1 H, Plt Count 189, MPV 11.6, Immature Gran % (Auto) 0.500, Neut % (Auto) 83.0 H, Lymph % (Auto) 9.8 L, Swain % (Auto) 6.7, Eos % (Auto) 0.0, Baso % (Auto) 0.0, Absolute Neuts (auto) 6.4, Absolute Lymphs (auto) 0.75 L, Nucleated RBC % 0, Anisocytosis 1+ 02/23/21 05:40: Sodium 142, Potassium 5.0, Chloride 102, Carbon Dioxide 36.0 H, Anion Gap 4 L, BUN 52 H, Creatinine 1.23 H, Estim Creat Clear Calc 30.28, Est GFR (MDRD) Af Amer 55 L, Est GFR (MDRD) Non-Af 45 L, BUN/Creatinine Ratio 42.3 H, Glucose 156 H, Calcium 9.4, Magnesium 2.1, Total Bilirubin 0.50, AST 77 H, ALT 77 H, Alkaline Phosphatase 153 H, Total Protein 7.4, Albumin 2.8 L, Globulin 4.6 H, Albumin/Globulin Ratio 0.6 L 02/23/21 06:45: POC Glucose 160 H Micro: Microbiology 02/22/21 03:45 Nasal Secretion SARS-CoV-2 Antigen (Rapid) - Final SARS-CoV-2 (COVID 19) Physical Exam Narrative GENERAL: Dyspneic at rest, on BiPAP HEENT: Atraumatic; EYES; Anicteric, Normal Conjunctiva NECK; supple, normal thyroid, RESPIRATORY: Diminished to auscultation, bilateral rhonchi CARDIOVASCULAR: Regular S1 S2, GI: soft, normoactive bowel sounds, : No Renal angle tenderness; EXTREMITIES: edema, no clubbing, MUSCULOSKELETAL: no muscle waisting NEURO: Awake; no lateralizing signs. SKIN: No Rash PSYCH; Flat affect Assessment & Plan Assessment/Plan (1) COVID-19: PLAN: Patient is a 75-year-old lady who tested positive for Covid on 02/17/2021 presented to the emergency department with increasing shortness of breath 1. Acute hypoxic respiratory failure ?Due to combination of COVID-19 pneumonia as well as suspected congestive heart failure. Patient placed on supplemental oxygen with treatment of patient underlying etiology -02/23/2021 patient had to be placed on BiPAP due to increasing work of breathing. Michel catheter was also placed. Adjusted patient Lasix dose. Did go over CODE STATUS once again with patient she wishes to remain DNR CCA with no intubation 2. COVID-19 pneumonia ?Patient placed on Decadron. Patient was deemed not to be a candidate for remdesivir 3. Acute on chronic congestive heart failure with preserved ejection fraction ?Echo obtained on 11/28/2020 demonstrated EF of 65% with stage II diastolic dysfunction. Patient placed on supplemental oxygen, fluid restriction as well as IV diuretics 4. Pulmonary arterial hypertension ?Managed with supplemental oxygen. Echo demonstrated pulmonary arterial systolic pressure of 66 mm of mmHg. 5. History of gout -Continue allopurinol 6. Hypertension - Blood pressure controlled, home medications continued with dose adjustment as needed 7. Dyslipidemia -Patient is on statin therapy, continued at home dose 8. Diabetes mellitus type 2 ?Uncontrolled with hyperglycemia in view of concomitant steroid use. Did adjust patient insulin regimen 9. Depression/anxiety -Continue home medications 10. GERD -Continue home medications 11. Class III morbid obesity with BMI 46.1 ?Weight loss advised 12. Chronic kidney disease stage IIIa ?Monitoring with daily BMPs 13. Obstructive sleep apnea ?PAP therapy at night 14. Anemia - Secondary to chronic disorder monitoring H&H and transfuse if patient becomes symptomatic or hemoglobin falls below 7 15. Non-Hodgkin's lymphoma ?Per history currently in remission 16. DVT prophylaxis -Continue enoxaparin 30 mg twice daily Charges/Coding Visit Charges Inpatient E&M: 30578 [facility] Hosp L3
[2021-02-23] MEDS: Furosemide 40 MG/4 ML Vial IV (08:14)
[2021-02-23] MEDS: 0.9% Saline Lock 10 ML Syringe IV ×2 (08:15→18:20)
[2021-02-23] MEDS: dexAMETHasone 10 MG/ML Vial 6 MG IV (10:59)
[2021-02-23] MEDS: Enoxaparin 30 MG/0.3 ML Syringe SC (11:00)
[2021-02-23] MEDS: LORazepam 2 MG/ML Syringe 0.5 MG IV ×2 (12:06→18:20)
[2021-02-23 12:26] LABS: Bedside Glucose 168 mg/dL (70-110)
[2021-02-23 20:16] LABS: Bedside Glucose 161 mg/dL (70-110)
--- NOTE | 2021-02-23 22:13 | NURSING ---
Patient at 2041. This RN confirmed with Len Farr RN. Daughter, Yun, notified as well as home. [facility]
--- NOTE | 2021-02-24 07:52 | PCM.DEATH ---
Preliminary Cause of Preliminary Cause of Preliminary Cause of : COVID-19 pneumonia Acute on chronic congestive heart failure with preserved ejection fraction Principle Diagnosis Problem List: Active and Suspected Problems (Updated 02/22/21 @ 04:[address] Iban Franklin, DO) Pneumonia due to 2019 novel coronavirus (Acute) COVID-19 (Acute) Hospital Course Patient is a 75-year-old lady who tested positive for Covid on 02/17/2021 presented to the emergency department with increasing shortness of breath and assessment of Acute hypoxic respiratory failure Due to combination of COVID-19 pneumonia as well as suspected congestive heart failure. Patient placed on supplemental oxygen with treatment of patient underlying etiology. Patient had to be placed on BiPAP due to increasing work of breathing. Michel catheter was also placed. Adjusted patient Lasix dose. Did go over CODE STATUS once again with patient she wishes to remain DNR CCA with no intubation patient was found without spontaneous breathing and without heart tones on 02/23/2021. She was pronounced at 2041. Visit Charges Inpatient E&M: [id number] Disch Hosp
== END 2021-02-23 22:30 | DRG 177 ==
LOC: ED 04:50 → MS3 07:13
PROVIDERS: Admitting Provider Internal Medicine; Emergency Provider Emergency Medicine; PCP Internal Medicine; Visit Provider Internal Medicine
DX: U07.1 COVID-19 (principal); J12.82 Pneumonia due to coronavirus disease 2019; J96.21 Acute and chronic respiratory failure with hypoxia; I50.33 Acute on chronic diastolic (congestive) heart failure; J44.0 Chronic obstructive pulmonary disease with (acute) lower respiratory infection; C85.90 Non-Hodgkin lymphoma, unspecified, unspecified site; Z68.42 Body mass index [BMI] 45.0-49.9, adult; I13.0 Hypertensive heart and chronic kidney disease with heart failure and stage 1 through stage 4 chronic kidney disease, or unspecified chronic kidney disease; E11.42 Type 2 diabetes mellitus with diabetic polyneuropathy; K21.9 Gastro-esophageal reflux disease without esophagitis; E78.5 Hyperlipidemia, unspecified; Z66 Do not resuscitate; E11.65 Type 2 diabetes mellitus with hyperglycemia; F32.A Depression, unspecified; K58.9 Irritable bowel syndrome, unspecified; M10.9 Gout, unspecified; K76.0 Fatty (change of) liver, not elsewhere classified; E03.9 Hypothyroidism, unspecified; E66.01 Morbid (severe) obesity due to excess calories; G47.33 Obstructive sleep apnea (adult) (pediatric); I27.21 Secondary pulmonary arterial hypertension; M35.00 Sjogren syndrome, unspecified; E11.22 Type 2 diabetes mellitus with diabetic chronic kidney disease; F41.9 Anxiety disorder, unspecified; N18.31 Chronic kidney disease, stage 3a; D63.8 Anemia in other chronic diseases classified elsewhere; Z99.81 Dependence on supplemental oxygen; Z79.899 Other long term (current) drug therapy; Z79.890 Hormone replacement therapy; Z79.51 Long term (current) use of inhaled steroids; Z79.4 Long term (current) use of insulin; Z87.891 Personal history of nicotine dependence
CPT/HCPCS: 36415; 71045; 80048; 80053; 82962; 83605; 83735; 83880; 84484; 85025; 85610; 85730; 87426; 93005; 94002; 94640; 94667; 99251; 99285; A4216; G0463; J1940